=== PATIENT | male | born 1955 | race Caucasian/White ===

== ENCOUNTER 2019-10-30 10:13 | Outpatient (CLI) | payer OTHER, SELFPAY ==
[2019-10-30 10:32] LABS: Hematocrit 46.8 % (42.0-52.0); Hemoglobin 15.8 g/dL (14.0-18.0); Mean Corpuscular HGB Conc 33.8 g/dl (32-36); Mean Corpuscular Hemoglobin 35.3 pg (26-34); Mean Corpuscular Volume 104.5 fl (80-100); Mean Platelet Volume 10.6 fl (7.4-10.4); Platelet Count Result 74 k/mm3 (150-375); Red Blood Count 4.48 M/mm3 (4.6-6.20); Red Cell Distribution Width 14.1 % (11.5-14.5); White Blood Count 4.1 K/mm3 (4.5-10.0)
[2019-10-30 10:34] LABS: Blood Urea Nitrogen 17 mg/dL (8-26); Carbon Dioxide 31 mmol/L (22-30); Chloride 101 mmol/L (98-109); Estimated Glomerular Filt Rate > 60; Glucose 108 mg/dL (70-105); Potassium 4.2 mmol/L (3.5-4.9); Sodium 140 mmol/L (138-146)
[2019-10-30 12:48] LABS: Alanine Aminotransferase 28 U/L (4-50); Albumin Level 3.8 g/dL (3.5-5.1); Alkaline Phosphatase 117 U/L (38-126); Aspartate Amino Transferase 34 U/L (17-59); Bilirubin,Total 0.7 mg/dL (0.2-1.3); Blood Urea Nitrogen 17 mg/dL (9-20); Calcium 9.6 mg/dL (8.4-10.2); Carbon Dioxide 30 mmol/L (22-30); Chloride 104 mmol/L (98-107); Estimated Glomerular Filt Rate > 60; Glucose 108 mg/dL (75-110); Potassium 4.3 mmol/L (3.4-5.0); Sodium 139 mmol/L (137-145)
== END 2019-10-30 10:14 | disposition home or self-care (01) ==
LOC: ANHLAB 10:15
PROVIDERS: PCP Family Medicine; Visit Provider Internal Medicine Hematology & Oncology
DX: D69.59 Other secondary thrombocytopenia (principal)
CPT/HCPCS: 36415; 80048; 80053; 85027

== ENCOUNTER 2020-10-30 16:14 | Outpatient (CLI) | payer OTHER, SELFPAY | END 2020-10-30 16:15 | disposition home or self-care (01) | LOC: ANHCOVIDVC 16:14 | PROVIDERS: PCP Family Medicine | DX: Z23 Encounter for immunization (principal) | CPT/HCPCS: 0001A; 91300 ==

== ENCOUNTER 2020-11-20 16:11 | Outpatient (CLI) | payer OTHER, SELFPAY | END 2020-11-20 16:12 | disposition home or self-care (01) | LOC: ANHCOVIDVC 16:11 | PROVIDERS: PCP Family Medicine | DX: Z23 Encounter for immunization (principal) | CPT/HCPCS: 0002A; 91300 ==

== ENCOUNTER 2021-03-25 09:20 | Observation (INO) | payer OTHER, SELFPAY ==
[2021-03-25] VITALS (7 sets, daily range): BP systolic 99–142; BP diastolic 60–74; PULSE 85–92; RESP 18–20; TEMP 36.6–37.3; O2SAT 93–98; BMI 25.1
--- NOTE | ~2021-03-25 | CT_ITS ---
EXAMINATION: CTA chest PE protocol DATE: 03/25/2021 10:54 INDICATION: Chest pain TECHNIQUE: Computed tomography (CT) pulmonary angiogram of the chest was performed with 100 mL Omnipa que-350 intravenous contrast. Additional 3D reconstructions utilizing coronal maximum intensity proje ction (MIP) were performed. Automated exposure control and iterative reconstruction technique were em ployed. The dose-length product was 562.85 mGy-cm. COMPARISON: None FINDINGS: Good contrast opacification of the pulmonary arteries. There is mild streak artifact from dense contr ast in the superior vena cava and right atrium. Mild scattered respiratory motion artifact which does not significantly limit evaluation. No pulmonary embolism. Moderate emphysema. Mild bronchiectatic c hanges with some associated mucous plugging throughout both lungs. There are regions of tree-in-bud o pacities and small groundglass opacities consistent with endobronchial spread of disease scattered th roughout both lungs with involvement of all of the pulmonary lobes. Focal region of moderate pleural parenchymal scarring at the posterior right apex. Calcified nodule at the lingula along with calcifie d left hilar lymph nodes consistent with old granulomatous disease. No pleural effusion. Heart size i s normal. No pericardial effusion. Atherosclerotic coronary artery calcification. Thoracic aorta is n ormal in caliber with no dissection. No pathologically enlarged thoracic lymphadenopathy. Nodular cir rhotic liver. Spleen is incompletely visualized but suggests mild splenomegaly in the setting of port al venous hypertension. Moderate thoracic spondylosis and severe lower cervical spondylosis. IMPRESSION: 1. No pulmonary embolism. 2. Moderate emphysema with moderate pleural parenchymal scarring at the posterior right apex. 3. Bronchiectasis with scattered tree-in-bud opacities and small groundglass opacities likely infecti ous in etiology, either acute or chronic. 4. Cirrhosis with possible splenomegaly would suggest portal venous hypertension. Reviewed, dictated and finalized at location A. IMPRESSION: 1. No pulmonary embolism. 2. Moderate emphysema with moderate pleural parenchymal scarring at the posteri or right apex. 3. Bronchiectasis with scattered tree-in-bud opacities and small groundglass op acities likely infectious in etiology, either acute or chronic. 4. Cirrhosis with possible splenomegaly would suggest portal venous hypertensio n.
--- NOTE | ~2021-03-25 | XR_ITS ---
EXAMINATION: XR chest 2V EXAM DATE: 03/25/2021 09:48 INDICATION: Shortness of breath on exertion. Hypertension and diabetes. TECHNIQUE: Frontal and lateral projections of the chest obtained and reviewed. Comparison is made to prior examination from 03/27/2018. FINDINGS: The lungs are hyperinflated which can be seen with chronic obstructive pulmonary disease (a clinical diagnosis of functional impairment), but is not diagnostic of it. The lungs are clear. T here are no pleural effusions. The cardiomediastinal silhouette is within normal limits. There is n o pneumothorax suspected. The bones and soft tissues are unremarkable. IMPRESSION: 1. No acute cardiopulmonary findings. 2. Hyperinflation. Reviewed, dictated and finalized at location B.
--- NOTE | 2021-03-25 09:33 | ECG_ITS ---
Measurements Intervals [place] Rate: 88 P: 81 UT: 221 QRS: 57 QRSD: 81 T: 69 QT: 342 QTc: 414 Interpretive Statements SINUS RHYTHM WITH FIRST DEGREE AV BLOCK LOW QRS VOLTAGE IN LIMB LEADS CANNOT RULE OUT SEPTAL INFARCT, AGE INDETERMINATE BASELINE ARTIFACT- I, II, AVR, AVL ABNORMAL ECG Electronically Signed On 03-25-2021 14:24:04 CDT by Wilner Redmond D.O.
[2021-03-25 09:54] LABS: Basophils Percent Auto 0.2 % (0.2-1.2); Eosinophils Absolute Auto 0.1 K/mm3 (0-0.3); Eosinophils Percent Auto 0.9 % (0-4.4); Hematocrit 50.6 % (42.0-52.0); Hemoglobin 17.5 g/dL (14.0-18.0); Immature Granulocyte Absolute 0.02 K/mm3 (0.00-0.031); Immature Granulocyte Percent A 0.3 % (0-0.5); Lymphocytes Absolute Auto 1.13 K/mm3 (0.9-3.2); Lymphocytes Percent Auto 19.4 % (18.3-44.2); Mean Corpuscular HGB Conc 34.6 g/dl (32-36); Mean Corpuscular Hemoglobin 35.8 pg (26-34); Mean Corpuscular Volume 103.5 fl (80-100); Monocytes Absolute Auto 0.7 K/mm3 (0.1-0.6); Monocytes Percent Auto 12.5 % (2.6-8.5); Neutrophils Absolute Auto 3.9 K/mm3 (1.3-6.7); Neutrophils Percent Auto 66.7 % (45.5-73.1); Platelet Count Result 72 k/mm3 (150-375); Red Blood Count 4.89 M/mm3 (4.6-6.20); Red Cell Distribution Width 12.9 % (11.5-14.5); White Blood Count 5.8 K/mm3 (4.5-10.0)
--- NOTE | 2021-03-25 10:09 | ED.SOB ---
HPI - SOB/Dyspnea General Chief Complaint: Shortness of Breath/Dyspnea Stated Complaint: SOB Time Seen by Provider: 03/25/21 09:32 Source: patient and RN notes reviewed Mode of arrival: ambulatory Limitations: no limitations History of Present Illness HPI Narrative: This is a 65 year old male smoker with history COPD who presents for evaluation of shortness of breath. Yesterday he developed shortness of breath. He noticed walking into work he was gasping for air after walking approximately 20 steps. His shortness of breath has continued today and he reports shortness of breath with rest as well. He reports cough productive with clear phlegm for 2 weeks. He denies fever or chills. He reports mild intermittent chest congestion. He denies leg swelling or calf pain. He also denies sore throat. He denies contact with [facility] Related Data Home Medications Medication Instructions Recorded Confirmed allopurinol 300 mg PO DAILY 03/25/21 03/25/21 coffee xt-phosphatidyl serine cap PO DAILY 03/25/21 [Neuriva Original] duloxetine 60 mg PO DAILY 03/25/21 03/25/21 multivitamin [Daily Multivitamin] 1 tablet PO DAILY 03/25/21 03/25/21 Allergies Allergy/AdvReac Type Severity Reaction Status Date / Time No Known Allergies Allergy Verified 03/25/21 09:43 Review of Systems Review of Systems: All systems reviewed & are unremarkable except as noted in HPI and below PMFSH Past Medical History Medical History (Updated 03/25/21 @ 18:55 by Lea Alvares MD) Chronic obstructive pulmonary disease, unspecified Depression with anxiety Peripheral vascular disease, unspecified Type 2 diabetes mellitus without complication, without long-term current use of insulin Family History Family History (Updated 03/25/21 @ 15:40 by Ludmila Leon, RNLP) Mother Carcinoma of colon, Onset Age: 77 Father Diabetes mellitus Sibling Diabetes mellitus Social History Social History (Updated 03/25/21 @ 10:15 by Lea Alvares MD) Smoking packs per day: 3 Smoking cigarettes per day: 60.0 Years smoked: 50 Smoking pack-years: 150.00 Smoking status: Current every day smoker Tobacco type: cigarettes Second hand tobacco smoke exposure: Yes Smoking end date: 08/29/09 Additional smoking assessment comments: patient stated he smoked on and off for most of his life. Alcohol intake: current Drinks per week: 48 Substance use type: does not use Last use: patient states he drinks 2 cases (24 beers each) per week. Gender identity (if verbalized by the patient): Male Sexual Orientation (if Verbalized by the Patient): Straight or Heterosexual Spiritual care concerns: No Exam Const: General: no acute distress and alert Orientation/consciousness: patient oriented x3 Eyes: EOM: EOMs intact bilaterally Chest: Chest palpation & inspection: normal inspection of the chest Resp: Effort & Inspection: normal respiratory effort, not labored, no retractions and not tachypneic Auscultation: wheezes and diminished lung sounds Other: able to speak in complete full sentences with out difficulty Skin: General skin exam: normal color Rashes: no rashes Neuro: General: patient oriented x3, moves all extremities and CN's II-XI intact bilaterally Course Reevaluation(s) Reevaluation #1: Nursing staff reports patient became hypoxic to 88% on room air with ambulation and he was gasping for air. He was taking back to his room. He will be admitted for COPD exacerbation. Date: 03/25/21 Time: 12:00 Consultations Consultation #1: I Discussed case with DR. john. HE accepts patient to service on antibiotics and with covid swab. Date: 03/25/21 Time: 12:30 Vital Signs Vital signs: Vital Signs Temperature 97.8 F 03/25/21 09:33 Pulse Rate 87 03/25/21 09:33 Respiratory Rate 18 03/25/21 09:33 Blood Pressure 132/74 03/25/21 09:33 Pulse Oximetry 94 03/25/21 09:33 Temperature 99.1 F
[2021-03-25 10:12] LABS: Anion Gap 9 mmol/L (8-16); Blood Urea Nitrogen 9 mg/dL (9-20); Calcium 9.5 mg/dL (8.4-10.2); Carbon Dioxide 29 mmol/L (22-30); Chloride 94 mmol/L (98-107); Estimated CRCL calculation 101 ml/min; Estimated Glomerular Filt Rate > 60; Glucose 112 mg/dL (65-110); Potassium 4.2 mmol/L (3.4-5.0); Sodium 132 mmol/L (137-145)
[2021-03-25] MEDS: ALBUTEROL SULFATE NEB 2.5 MG/0.5 ML INH 5 MG INHALATION (10:15)
[2021-03-25] MEDS: IPRATROPIUM BR 0.02% INH SOLN 0.5 MG/2.5 ML VIAL INHALATION (10:15)
[2021-03-25] MEDS: predniSONE 20 MG TABLET 60 MG PO (10:18)
[2021-03-25 10:23] LABS: INR 0.9; Prothrombin Time 12.5 Seconds (11.1-14.7)
[2021-03-25 10:24] LABS: Partial Thromboplastin Time 38.1 SECONDS (22.3-36.8)
[2021-03-25 10:25] LABS: Alveolar/Arterial O2 Gradient 46.9 mmHg; Base Excess ABG 1.6 mEq/l (+/-2.0); Carboxyhemoglobin 3.5 % THb (0-2.0); Fractional Inspired Oxygen 21 %; HCO3 ABG 26.2 mEq/l (22.0-26.0); Methemoglobin ABG 0.4 %THb (0-1.5); Oxygen Content ABG 22.3 %vol (16.0-22.0); Oxygen Saturation ABG 88.6 % (95.0-100.0); Oxyhemoglobin 86.1 % THb (90.0-100.0); PO2 ABG 53.7 mmHg (80.0-100.0); PO2 FiO2 Ratio Arterial Blood 2.56 %; Total Hemoglobin 18.5 g/dL (12.0-18.0); pH ABG 7.423 (7.350-7.450)
[2021-03-25 10:26] LABS: D Dimer 1.04 ug/mL (<0.48)
[2021-03-25 10:26] LABS: Modified Allen's Test Pass; Site Drawn LEFT RADIAL
[2021-03-25 10:27] LABS: Device ROOM AIR
[2021-03-25 10:41] LABS: Troponin I < 0.012 ng/mL (0.000-0.034)
--- NOTE | 2021-03-25 15:23 | ADMGEN ---
This patient, Francis Montes, was admitted to 3 [facility] Surg Room 328-01. Patient oriented to hospital policies and general routines including ID bracelet, bed and alarms, visiting hours, pain management, procedures, bathroom and other care routines, personal items, smoking policy, room service/diet, and visiting hours. Information on how to activate the Rapid Response Team has been discussed. Patient/Family are encouraged to report perceived risks to care and to ask questions if they do not understand what they are told or what they should do.
[2021-03-25] MEDS: ALBUTEROL SULFATE (*SP) AEROSOL 1 PUFF 4 PUFF INHALATION (16:13)
[2021-03-25] MEDS: ALBUTEROL SULFATE (*SP) INHALER 1 PUFF (20:35)
[2021-03-25 20:58] LABS: Glucose Point of Care 142 mg/dl (65-105)
[2021-03-26] VITALS (14 sets, daily range): BP systolic 132–159; BP diastolic 57–77; PULSE 70–85; RESP 16–24; TEMP 36.6–36.7; O2SAT 91–95; BMI 25.1
--- NOTE | 2021-03-26 03:09 | PM.IMHP ---
H&P: HPI History of Present Illness Date/Time: 03/26/21 03:09 Chief Complaint: SHORTNESS OF BREATH Narrative: THIS IS A 65-YEAR-OLD MALE WITH PAST MEDICAL HISTORY SIGNIFICANT FOR TOBACCO DEPENDENCE, SMOKES 3 PACKS OF CIGARETTES DAILY, COPD / EMPHYSEMA, DYSLIPIDEMIA HOME TYPE 2 DIABETES MELLITUS CONTROLLED WITH ORAL AGENTS AND DIET COMA PERIPHERAL NEUROPATHY, HYPERTENSION. PATIENT PRESENTED TO THE EMERGENCY ROOM DUE TO PROGRESSIVELY WORSENING SHORTNESS OF BREATH STATES THAT THIS HAS BEEN ONGOING NOW FOR THE LAST 2 MONTHS OR SO BUT HAS BECOME INCREASINGLY WORSE AND HE HAS HAD SOME NIGHT SWEATS WELL COUGH WITH PRODUCTION OF YELLOWISH TO BROWN SPUTUM. IS STATES THAT NOW SHORTNESS OF BREATH IS EVEN WITH MINIMAL EXERTION. HE DENIES ANY NAUSEA ANY VOMITING ANY DIARRHEA AND ABDOMINAL PAIN HIS HAD ALSO POOR APPETITE DUE TO SHORTNESS OF BREATH. PRELIMINARY WORKUP WAS SIGNIFICANT FOR CTA WITH NO ACUTE PULMONARY EMBOLISM HOWEVER SIGNIFICANT FOR BRONCHIECTASIS AND TREE-IN-BUD APPEARANCE. Review of Systems Review of Systems: NIGHT SWEATS WORSENING SHORTNESS OF BREATH POOR APPETITE Constitutional: Constitutional: Reports chills, Denies fever(s), Reports poor appetite and Denies weakness Eyes: Eyes: Reports as per HPI ENT: Denies dysphagia, Denies nasal obstruction and Denies odynophagia Cardiovascular: Cardiovascular: Denies rapid heart rate, Denies irregular heart rhythm, Denies claudication, Denies lightheadedness, Denies radiating jaw, neck or arm pain, Denies palpitations, Denies dyspnea on exertion and Denies orthopnea Respiratory: Respiratory: Reports change in phlegm color, Reports cough, Reports excessive phlegm production and Reports dyspnea Gastrointestinal: Gastrointestinal: Denies abdominal pain, Denies diarrhea, Denies nausea and Denies vomiting Genitourinary: Genitourinary: Reports no additional male genitourinary complaints Musculoskeletal: Musculoskeletal: Reports no additional musculoskeletal complaints Integumentary/Breasts: Skin/Breast: Reports system reviewed and no additional complaints, except as docu Neurologic: Reports system reviewed and no additional complaints, except as documented Psychiatric: Psychiatric: Reports no additional psychiatric complaints Endocrine: Endocrine: Reports no additional endocrine complaints Hematologic/Lymphatic: Hematologic/Lymphatic: Reports no additional hematologic/lymphatic complaints Allergic/Immunologic: Allergic/Immunologic: Reports no additional allergic/immunologic complaints [facility] Past Medical History Medical History (Updated 03/25/21 @ 18:55 by Lea Alvares MD) Chronic obstructive pulmonary disease, unspecified Depression with anxiety Peripheral vascular disease, unspecified Type 2 diabetes mellitus without complication, without long-term current use of insulin Family History Family History (Updated 03/25/21 @ 15:40 by JULIETA Acosta) Mother Carcinoma of colon, Onset Age: 77 Father Diabetes mellitus Sibling Diabetes mellitus Social History Social History (Updated 03/25/21 @ 10:15 by Lea Alvares MD) Smoking packs per day: 3 Smoking cigarettes per day: 60.0 Years smoked: 50 Smoking pack-years: 150.00 Smoking status: Current every day smoker Tobacco type: cigarettes Second hand tobacco smoke exposure: Yes Smoking end date: 08/29/09 Additional smoking assessment comments: patient stated he smoked on and off for most of his life. Alcohol intake: current Drinks per week: 48 Substance use type: does not use Last use: patient states he drinks 2 cases (24 beers each) per week. Gender identity (if verbalized by the patient): Male Sexual Orientation (if Verbalized by the Patient): Straight or Heterosexual Spiritual care concerns: No Meds Home Medications and Allergies Home Medications Medication Instructions Recorded Confirmed Type albuterol sulfate 90 mcg/actuation 2 inhalation INHALATION .C
[2021-03-26 06:56] LABS: Basophils Percent Auto 0.4 % (0.2-1.2); Eosinophils Percent Auto 0.4 % (0-4.4); Hematocrit 48.9 % (42.0-52.0); Hemoglobin 17.2 g/dL (14.0-18.0); Immature Granulocyte Absolute 0.02 K/mm3 (0.00-0.031); Immature Granulocyte Percent A 0.4 % (0-0.5); Immature Platelet Fraction Pct 5.7 % (0.9-11.2); Lymphocytes Absolute Auto 1.07 K/mm3 (0.9-3.2); Lymphocytes Percent Auto 19.6 % (18.3-44.2); Mean Corpuscular HGB Conc 35.2 g/dl (32-36); Mean Corpuscular Hemoglobin 36.3 pg (26-34); Mean Corpuscular Volume 103.2 fl (80-100); Monocytes Absolute Auto 0.6 K/mm3 (0.1-0.6); Monocytes Percent Auto 10.3 % (2.6-8.5); Neutrophils Absolute Auto 3.8 K/mm3 (1.3-6.7); Neutrophils Percent Auto 68.9 % (45.5-73.1); Platelet Count Result 74 k/mm3 (150-375); Red Blood Count 4.74 M/mm3 (4.6-6.20); Red Cell Distribution Width 12.9 % (11.5-14.5); White Blood Count 5.5 K/mm3 (4.5-10.0)
[2021-03-26 07:09] LABS: Alanine Aminotransferase 38 U/L (4-50); Albumin Level 3.8 g/dL (3.5-5.1); Alkaline Phosphatase 142 U/L (38-126); Anion Gap 9 mmol/L (8-16); Aspartate Amino Transferase 54 U/L (17-59); Bilirubin,Total 0.9 mg/dL (0.2-1.3); Blood Urea Nitrogen 16 mg/dL (9-20); Calcium 9.5 mg/dL (8.4-10.2); Carbon Dioxide 27 mmol/L (22-30); Chloride 96 mmol/L (98-107); Estimated CRCL calculation 104 ml/min; Estimated Glomerular Filt Rate > 60; Glucose 102 mg/dL (65-110); Potassium 4.2 mmol/L (3.4-5.0); Sodium 132 mmol/L (137-145)
[2021-03-26 08:20] LABS: Glucose Point of Care 109 mg/dl (65-105)
[2021-03-26] MEDS: allopurinoL 300 MG TABLET PO (08:44)
[2021-03-26] MEDS: DULoxetine HCL 60 MG CAPSULE.DR PO (08:44)
[2021-03-26] MEDS: predniSONE 20 MG TABLET 60 MG PO (08:44)
[2021-03-26] MEDS: busPIRone HCL 2.5 MG TABLET 7.5 MG PO ×2 (08:44→21:06)
[2021-03-26] MEDS: ATORVASTATIN 10 MG TABLET PO (08:44)
[2021-03-26] MEDS: IPRATROPIUM BR 0.02% INH SOLN 0.5 MG/2.5 ML VIAL INHALATION ×3 (08:47→20:31)
[2021-03-26] MEDS: ALBUTEROL SULFATE NEB 2.5 MG/0.5 ML INH INHALATION ×3 (08:47→20:31)
[2021-03-26] MEDS: FLUTICASONE/UMECLIDIN/VILANTER 100-62.5-25 MCG ELLIPTA 1 PUFF INHALATION (08:47)
[2021-03-26 08:52] LABS: Folic Acid 17.6 ng/mL (2.76->20)
[2021-03-26 12:21] LABS: Glucose Point of Care 143 mg/dl (65-105)
[2021-03-26] MEDS: GABAPENTIN 300 MG CAPSULE 600 MG PO ×2 (12:28→16:41)
--- NOTE | 2021-03-26 13:22 | PCNSR ---
On 03/26/21, the student, Bessy White, provided care and completed [facility] on this patient. I have reviewed the student's documentation and agree with the findings.
--- NOTE | 2021-03-26 16:33 | PM.IMPN ---
Progress Note: A&P Assessment and Plan (1) Acute exacerbation of chronic obstructive airways disease: Code(s): J44.1 - Chronic obstructive pulmonary disease with (acute) exacerbation Status: Acute Assessment and Plan: Patient with COPD exacerbation and pneumonia. He is no longer on any oxygen at this time. he does still have some wheezing. Will continue IV Antibotic at this time for community-acquired pneumonia. Will increase steroids to Solu-Medrol 40 mg q.12. For COPD exacerbation. Continue DuoNeb treatments q.6 hours. Will continue monitoring his oxygenation and consider a home oxygen evaluation prior to discharge tomorrow. (2) Community acquired pneumonia: Code(s): J18.9 - Pneumonia, unspecified organism Status: Acute Assessment and Plan: Continue azithromycin and ceftriaxone. Will try to collect sputum culture. Ordered urine antigens which were received and pending. (3) Peripheral vascular disease, unspecified: Code(s): I73.9 - Peripheral vascular disease, unspecified Status: Chronic Assessment and Plan: Stable. (4) Type 2 diabetes mellitus without complication, without long-term current use of insulin: Code(s): E11.9 - Type 2 diabetes mellitus without complications Status: Chronic Assessment and Plan: Glucose this morning was 102. Will continue to hold metformin while hospitalized. Continue with Accu-Cheks a.c. HS. Sliding scale insulin as needed. And hypoglycemic protocol in place. (5) Depression with anxiety: Code(s): F41.8 - Other specified anxiety disorders Status: Chronic Assessment and Plan: CONTINUE BUSPIRONE AND DULOXETINE (6) Nicotine dependence: Qualifiers: Nicotine product type: cigarettes Substance use status: uncomplicated Qualified Code(s): F17.210 - Nicotine dependence, cigarettes, uncomplicated Code(s): F17.200 - Nicotine dependence, unspecified, uncomplicated Status: Acute Assessment and Plan: Patient does have wishes to come back on his smoking once discharged. When asked about quitting completely he says he would rather focus on quitting alcohol. Smoking cessation given for 3 minutes. (7) Stasis dermatitis of both legs: Code(s): I87.2 - Venous insufficiency (chronic) (peripheral) Status: Chronic Assessment and Plan: Stable. No acute changes. (8) Alcoholic cirrhosis: Code(s): K70.30 - Alcoholic cirrhosis of liver without ascites Status: Chronic Assessment and Plan: CT scan shows cirrhosis of the liver. Patient denies ever being told he has alcoholic cirrhosis. But he is a heavy alcohol drinker. He does have plans to quit drinking after discharge. His CIWA score has been less than 8. He does have some slight tremors, anxiety, and sweats. --Started Folic acid, Thiamine and I will order Librium 5 mg p.r.n. q.6 hours for withdrawal symptoms. Any monitoring CIWA. Will talk to care coordination about helping him with detox. (9) Splenomegaly: Code(s): R16.1 - Splenomegaly, not elsewhere classified Status: Acute Assessment and Plan: Most likely secondary to liver cirrhosis and portal vein hypertension. Time Spent With Patient Time with patient: 25 - 35 minutes Subjective Date/time seen: 03/26/21 16:33 Interval history: Date of Service 03/26/21: Patient reports still having intermittent cough with improvement of sputum production from yellow to white/
[2021-03-26] MEDS: chlordiazePOXIDE (*CRX) 5 MG CAPSULE PO (16:40)
[2021-03-26 17:26] LABS: Glucose Point of Care 180 mg/dl (65-105)
[2021-03-26] MEDS: FOLIC ACID 1 MG/0.2 ML INJ IV PUSH (17:42)
[2021-03-26] MEDS: methylPREDNISolone SOD SUCC 40 MG VIAL IV PUSH (17:42)
[2021-03-26] MEDS: THIAMINE HCL 50 MG TABLET PO (17:42)
[2021-03-26 18:09] LABS: SARS-CoV-2 RNA PCR Negative
[2021-03-26 21:12] LABS: Glucose Point of Care 126 mg/dl (65-105)
[2021-03-27] VITALS: PULSE 85
[2021-03-27] MEDS: chlordiazePOXIDE (*CRX) 5 MG CAPSULE PO (00:19)
[2021-03-27] MEDS: methylPREDNISolone SOD SUCC 40 MG VIAL IV PUSH (05:14)
[2021-03-27 05:24] VITALS: BP 130/58; PULSE 79; RESP 20; TEMP 36.5; O2SAT 92
[2021-03-27 06:52] LABS: Alanine Aminotransferase 57 U/L (4-50); Albumin Level 3.5 g/dL (3.5-5.1); Alkaline Phosphatase 137 U/L (38-126); Anion Gap 7 mmol/L (8-16); Aspartate Amino Transferase 76 U/L (17-59); Bilirubin,Total 0.8 mg/dL (0.2-1.3); Blood Urea Nitrogen 20 mg/dL (9-20); Calcium 9.1 mg/dL (8.4-10.2); Carbon Dioxide 28 mmol/L (22-30); Chloride 96 mmol/L (98-107); Estimated CRCL calculation 92 ml/min; Estimated Glomerular Filt Rate > 60; Glucose 115 mg/dL (65-110); Sodium 131 mmol/L (137-145)
[2021-03-27] MEDS: ATORVASTATIN 10 MG TABLET PO (08:27)
[2021-03-27] MEDS: busPIRone HCL 2.5 MG TABLET 7.5 MG PO (08:27)
[2021-03-27] MEDS: allopurinoL 300 MG TABLET PO (08:27)
[2021-03-27] MEDS: THIAMINE HCL 50 MG TABLET PO (08:28)
[2021-03-27] MEDS: GABAPENTIN 300 MG CAPSULE 600 MG PO ×2 (08:28→12:15)
[2021-03-27] MEDS: DULoxetine HCL 60 MG CAPSULE.DR PO (08:28)
[2021-03-27] MEDS: FOLIC ACID 1 MG/0.2 ML INJ IV PUSH (08:30)
[2021-03-27 08:48] LABS: Glucose Point of Care 148 mg/dl (65-105)
[2021-03-27 08:50] VITALS: PULSE 76; RESP 20
--- NOTE | 2021-03-27 12:47 | PM.DS ---
DS: Admitting Diagnosis Admitting Diagnosis SOB DS: Discharge Diagnosis Discharge Diagnosis (1) Acute exacerbation of chronic obstructive airways disease: Code(s): J44.1 - Chronic obstructive pulmonary disease with (acute) exacerbation Status: Acute Assessment and Plan: The patient is a 65 year old man with a past medical history of Tobacco dependence, smokes 3 packs of cigarettes per day, COPD/emphysema, hyperlipidemia, diabetes type 2 on oral medications, peripheral neuropathy, hypertension, presented to the emergency room with worsening shortness of breath over the last 2 months with associated productive cough with yellow-brown sputum, night sweats and worsening dyspnea with exertion. Initial labs showed stable blood pressure 134 a 74, heart rate 87, respiratory rate 18, oxygenation 94% on room air, afebrile. Initial labs showed elevated MCV, otherwise normal H&H, elevated D-dimer 1.04, ABG suggesting some hypoxia with an OC saturation 88, slight hyponatremia at 132, troponin normal, COVID test was normal. Chest x-ray showed no acute cardiopulmonary findings, just hyperinflation. CTA of the chest showed no PE, moderate emphysema with moderate pleural parenchymal scarring at the posterior right apex. Bronchiectasis with scattered tree-in-bud opacities and small groundglass opacities likely infectious in etiology, either acute or chronic. The patient was admitted for COPD exacerbation and pneumonia started on IV Abx, IV Solu-medrol, Duoneb treatments Q6hrs. The patient was feeling better after a few days of treatment, discharged on Prednisone taper, follow up with Pulmonology, and PO antibiotics. While here the patients CT showed Cirrhosis with possible splenomegaly would suggest portal venous hypertension. Told him to refrain from alcohol use. The patient does want to quit drinking alcohol. Care coordination tried to give him some resources and he told them that he knows what he needs to do. I suggested AA and chest not having different resources. (2) Community acquired pneumonia: Code(s): J18.9 - Pneumonia, unspecified organism Status: Acute Assessment and Plan: Continue azithromycin and ceftriaxone. D/c on oral Abx. Urine Antigens negative. Sputum culture not collected. Blood cultures negative to date. (3) Peripheral vascular disease, unspecified: Code(s): I73.9 - Peripheral vascular disease, unspecified Status: Chronic Assessment and Plan: Stable. (4) Type 2 diabetes mellitus without complication, without long-term current use of insulin: Code(s): E11.9 - Type 2 diabetes mellitus without complications Status: Chronic Assessment and Plan: Glucose stable. Continue home medications. (5) Depression with anxiety: Code(s): F41.8 - Other specified anxiety disorders Status: Chronic Assessment and Plan: CONTINUE BUSPIRONE AND DULOXETINE (6) Nicotine dependence: Qualifiers: Nicotine product type: cigarettes Substance use status: uncomplicated Qualified Code(s): F17.210 - Nicotine dependence, cigarettes, uncomplicated Code(s): F17.200 - Nicotine dependence, unspecified, uncomplicated Status: Acute Assessment and Plan: Patient does have wishes to cut back on his smoking once discharged. When asked about quitting completely he says he would rather focus on quitting alcohol. Smoking cessation given for 3 minutes. (7) Stasis dermatitis of both legs: Code(s): I87.2 - Venous insufficiency (chronic) (peripheral) Status: Chronic Assessment and Plan: Stable. No acute changes.
[2021-03-27 14:00] VITALS: BP 133/62; PULSE 73; RESP 18; TEMP 35.8; O2SAT 100
[2021-03-27 14:19] VITALS: PULSE 77; RESP 18
[2021-03-27] MEDS: ALBUTEROL SULFATE NEB 2.5 MG/0.5 ML INH INHALATION (14:19)
[2021-03-27] MEDS: IPRATROPIUM BR 0.02% INH SOLN 0.5 MG/2.5 ML VIAL INHALATION (14:19)
[2021-03-27 14:35] VITALS: PULSE 75; RESP 16
[2021-03-29 07:13] LABS: Pneumococcal Antigen Urine Not Detected (Not Detected)
[2021-03-31 02:51] LABS: Legionella pneumophila Ag Ur Not Detected (Not Detected)
== END 2021-03-27 15:45 | disposition home or self-care (01) ==
LOC: ANHED 10:24 → ANH3MEDSUR 14:28
PROVIDERS: Admitting Provider Internal Medicine; Emergency Provider General Practice; PCP Family Medicine; Visit Provider Physician Assistant
DX: J44.1 Chronic obstructive pulmonary disease with (acute) exacerbation (principal); J44.0 Chronic obstructive pulmonary disease with (acute) lower respiratory infection; J18.9 Pneumonia, unspecified organism; E11.42 Type 2 diabetes mellitus with diabetic polyneuropathy; E11.51 Type 2 diabetes mellitus with diabetic peripheral angiopathy without gangrene; I10 Essential (primary) hypertension; I73.9 Peripheral vascular disease, unspecified; I87.2 Venous insufficiency (chronic) (peripheral); E78.5 Hyperlipidemia, unspecified; K70.30 Alcoholic cirrhosis of liver without ascites; R16.1 Splenomegaly, not elsewhere classified; F32.9 Major depressive disorder, single episode, unspecified; F17.210 Nicotine dependence, cigarettes, uncomplicated; F41.9 Anxiety disorder, unspecified
CPT/HCPCS: 36415; 36600; 71046; 71275; 80048; 80053; 82375; 82607; 82746; 82805; 82948; 83050; 84484; 85025; 85055; 85380; 85610; 85730; 87040; 87449; 87899; 93005; 94640; 96365; 96367; 96375; 99285; A9270; C9803; G0378; J0456; J0696; J2920; J7512; Q9967; U0003; U0005

== ENCOUNTER 2022-05-14 18:36 | Inpatient (IN) | payer OTHER, SELFPAY ==
[2022-05-14] VITALS (37 sets, daily range): BP systolic 96–133; BP diastolic 67–94; PULSE 83–112; RESP 13–22; TEMP 36.1–36.7; O2SAT 84–100; BMI 23.3
--- NOTE | ~2022-05-14 | XR_ITS ---
EXAMINATION: XR chest 2V DATE: 05/14/2022 19:07 INDICATION: Shortness of breath. Cough. TECHNIQUE: Frontal and lateral views of the chest were obtained. COMPARISON: Chest 2 views 03/25/21, chest CT 03/25/2021 FINDINGS: The lungs are hyperexpanded, consistent with emphysema. There is stable scarring at the aissatou g apices. There is mild scarring in posterior segment right upper lobe. No pleural effusion or pneumo thorax. The heart size is normal. IMPRESSION: 1. Emphysema. 2. Stable scarring in the upper lobes. Reviewed, dictated and finalized at location A.
--- NOTE | 2022-05-14 18:54 | ECG_ITS ---
Measurements Intervals [place] Rate: 86 P: [place]: 0 QRS: 54 QRSD: 78 T: 76 QT: 350 QTc: 420 Interpretive Statements SINUS RHYTHM WITH FIRST DEGREE AV BLOCK LOW QRS VOLTAGE IN LIMB LEADS CANNOT RULE OUT SEPTAL INFARCT, AGE INDETERMINATE ABNORMAL ECG COMPARED TO ECG 03/25/2021 09:32:45 NO SIGNIFICANT CHANGES Electronically Signed On 05-14-2022 21:33:13 CDT by Wilner Redmond D.O.
--- NOTE | 2022-05-14 19:15 | ED.SOB ---
HPI - SOB/Dyspnea General Chief Complaint: Shortness of Breath/Dyspnea Stated Complaint: decreased oxygen levels - shortness of breath Time Seen by Provider: 05/14/22 19:15 History of Present Illness HPI Narrative: Patient is a 66-year-old male with a history of COPD, diabetes, PVD presenting with shortness of breath. Patient reports that he has been increasingly short of breath over the last several days. States he has also had a productive cough as well as chest tightness. His called his PCP today who recommended he go to urgent care for evaluation. At urgent care, he was noted to be saturating in the 80s on room air so he was advised to come to the ER. On arrival here, he was saturating 84% on room air. Improved to the upper 90s on 2 L nasal cannula. He otherwise denies headache, fever, abdominal pain, nausea or vomiting, diarrhea, dysuria, leg swelling. Patient is vaccinated for COVID-19. Related Data Home Medications Medication Instructions Recorded Confirmed multivitamin 1 tablet PO DAILY 03/25/21 12/15/21 B6 1.7 mg-folic 400 mcg-B12 2.4 cap PO 03/31/21 12/15/21 [id number] oral capsule (Neuriva Plus Brain Performance) Allergies Allergy/AdvReac Type Severity Reaction Status Date / Time No Known Allergies Allergy Verified 12/15/21 16:19 Review of Systems Review of Systems: All systems reviewed & are unremarkable except as noted in HPI and below PMFSH Past Medical History Medical History (Updated 05/14/22 @ 21:23 by Alicia Mahmood DO) Alcohol dependence Alcoholic cirrhosis Chronic obstructive pulmonary disease, unspecified Depression with anxiety Gout Hepatitis A Nicotine dependence Onychomycosis Peripheral neuropathy Peripheral vascular disease Portal venous hypertension Pure hypercholesterolemia Stasis dermatitis of both legs Thrombocytopenia Type 2 diabetes mellitus without complication, without long-term current use of insulin Diagnosed in 2019 last hemoglobin A1c 5.07 October 2021 Xerosis cutis Surgical History Surgical History (Updated 05/14/22 @ 21:25 by Alicia Mahmood DO) History of colonoscopy with polypectomy (03/2018) History of cystoscopy S/P TURP (status post transurethral resection of prostate) Family History Family History Mother Carcinoma of colon, Onset Age: 77 Father Diabetes mellitus Sibling Diabetes mellitus Social History Social History Smoking packs per day: 3 Smoking cigarettes per day: 60.0 Years smoked: 50 Smoking pack-years: 150.00 Tobacco type: cigarettes Second hand tobacco smoke exposure: Yes Smoking end date: 08/29/09 Additional smoking assessment comments: patient stated he smoked on and off for most of his life. Alcohol intake: current Drinks per week: 48 Substance use type: does not use Last use: patient states he drinks 2 cases (24 beers each) per week. Gender identity (if verbalized by the patient): Male Sexual Orientation (if Verbalized by the Patient): Straight or Heterosexual Spiritual care concerns: No Exam Narrative: GENERAL: Well-appearing, well-nourished, and in no acute distress. HEAD: Normocephalic, atraumatic. EYES: PERRLA and EOMI. ENT: Nares clear, no rhinorrhea or epistaxis. Mucous membranes moist. NECK: Supple. CHEST: Decreased breath sounds bilaterally with expiratory wheezing in all jimenez HEART: Regular rate and rhythm. No murmur heard. Normal peripheral pulses. ABDOMEN: Soft, nontender, nondistended, normal active bowel sounds. EXTREMITIES: Normal range of motion. No edema. SKIN: Warm, dry, no rash. Chronic venous stasis changes in bilateral lower extremities NEURO: No focal deficits. Alert and oriented x3. PSYCH: Normal mood and affect. Course Vital Signs Vital signs: Vital Signs Temperature 98.1 F 05/14/22 18:40 Pulse Rate 89
[2022-05-14 19:30] LABS: Basophils Percent Auto 0.4 % (0.2-1.2); Eosinophils Absolute Auto 0.1 K/mm3 (0-0.3); Eosinophils Percent Auto 1.3 % (0-4.4); Hematocrit 42.8 % (42.0-52.0); Hemoglobin 15.4 g/dL (14.0-18.0); Immature Granulocyte Absolute 0.01 K/mm3 (0.00-0.031); Immature Granulocyte Percent A 0.2 % (0-0.5); Immature Platelet Fraction Pct 4.7 % (0.9-11.2); Lymphocytes Absolute Auto 1.38 K/mm3 (0.9-3.2); Lymphocytes Percent Auto 29.7 % (18.3-44.2); Mean Corpuscular Hemoglobin 37.7 pg (26-34); Mean Corpuscular Volume 104.6 fl (80-100); Mean Platelet Volume 8.9 fl (7.4-10.4); Monocytes Absolute Auto 0.5 K/mm3 (0.1-0.6); Monocytes Percent Auto 9.9 % (2.6-8.5); Neutrophils Absolute Auto 2.7 K/mm3 (1.3-6.7); Neutrophils Percent Auto 58.5 % (45.5-73.1); Platelet Count Result 82 k/mm3 (150-375); Red Blood Count 4.09 M/mm3 (4.6-6.20); Red Cell Distribution Width 12.5 % (11.5-14.5); White Blood Count 4.7 K/mm3 (4.5-10.0)
[2022-05-14] MEDS: IPRATROPIUM BR 0.02% INH SOLN 0.5 MG/2.5 ML VIAL INHALATION (19:39)
[2022-05-14] MEDS: ALBUTEROL SULFATE NEB 2.5 MG/3 ML INH 10 MG INHALATION (19:39)
[2022-05-14 19:40] LABS: Alanine Aminotransferase 33 U/L (6-50); Alkaline Phosphatase 131 U/L (38-126); Anion Gap 8 mmol/L (8-16); Aspartate Amino Transferase 49 U/L (17-59); Bilirubin,Total 0.8 mg/dL (0.2-1.3); Blood Urea Nitrogen 8 mg/dL (9-20); Calcium 9.2 mg/dL (8.4-10.2); Carbon Dioxide 29 mmol/L (22-30); Chloride 94 mmol/L (98-107); Estimated CRCL calculation 99 ml/min; Estimated Glomerular Filt Rate > 60; Glucose 83 mg/dL (65-110); Potassium 4.3 mmol/L (3.4-5.0); Sodium 131 mmol/L (137-145)
[2022-05-14 19:49] LABS: NT Pro B Type Natriuretic Pept 268 pg/mL (5-100)
[2022-05-14] MEDS: methylPREDNISolone SOD SUCC 125 MG VIAL IV PUSH (20:26)
--- NOTE | 2022-05-14 21:10 | PM.IMHP ---
H&P: HPI History of Present Illness Date/Time: 05/14/22 21:10 Chief Complaint: Cough, shortness breath, low oxygen saturation Narrative: 66-year-old male with a past medical history of gout, hyperlipidemia, central hypertension, type 2 diabetes mellitus, peripheral neuropathy, anxiety and depression, and COPD with continued tobacco use who presented to the ER from urgent care due to low oxygen saturations. Patient has been having 3 days shortness of breath. We around to urgent care the patient's oxygen saturations were 84% on room air. When he arrived to our facility he was placed on 2 L nasal cannula with oxygen saturations improved to 98%. In the ER patient received an hour long nebulizer and IV Solu-Medrol 125 mg. He reports improvement in his symptoms. He has been taking his home Trelegy inhaler. He did find an old albuterol inhaler that he had around the house and tried the albuterol yesterday with short periods of relief of his symptoms. He reports that he has marked dyspnea on exertion. He reports he has had increased sinus pressure and sinus headache for a couple of days. His has been giving him Benadryl for symptoms. Benadryl has not seemed to help his sinus pressure. Since starting the Benadryl he has also had increased shortness of breath. He denies any increased cough. He denies any fevers or chills. He denies any known ill contacts. He has not had any chest pain. His cough has been productive of white sputum. He denies any lower extremity swelling or orthopnea. He denies a history of CHF but is on Lasix. This could be in part due to his history of cirrhosis. Patient still drinks approximately a 12 pack of beer per day per his 's report. Patient has chronic tremors sounds like essential tremor. His reports that his tremor has been quite significant for quite some time. The patient denies any irritability or symptoms of alcohol withdrawal in the past. More toward Katharine HPI was obtained from the patient's 's report. The patient deferred most answers to his . Review of Systems Review of Systems: 12 systems were reviewed with pertinent positives and negatives per HPI. Except as documented in the HPI, all other systems were reviewed and are negative. [facility] Past Medical History Medical History (Updated 05/15/22 @ 00:54 by Alicia Mahmood DO) Alcohol dependence Alcoholic cirrhosis Chronic obstructive pulmonary disease, unspecified Depression with anxiety Gout Hepatitis A Nicotine dependence Onychomycosis Peripheral neuropathy Peripheral vascular disease Portal venous hypertension Pure hypercholesterolemia Stasis dermatitis of both legs Thrombocytopenia Type 2 diabetes mellitus without complication, without long-term current use of insulin Diagnosed in 2019 last hemoglobin A1c 5.07 October 2021 Xerosis cutis Surgical History Surgical History (Updated 05/14/22 @ 21:25 by Alicia Mahmood DO) History of colonoscopy with polypectomy (03/2018) History of cystoscopy S/P TURP (status post transurethral resection of prostate) Family History Family History Mother Carcinoma of colon, Onset Age: 77 Father Diabetes mellitus Sibling Diabetes mellitus Social History Social History (Updated 05/15/22 @ 00:44 by Alicia Mahmood DO) Social History: Code status: Full code Surrogate decision maker: Smoking packs per day: 3 Smoking cigarettes per day: 60.0 Years smoked: 50 Smoking pack-years: 150.00 Smoking status: Current every day smoker Tobacco type: cigarettes Second hand tobacco smoke exposure: Yes Smoking end date: 08/29/09 Additional smoking assessment comments: patient stated he smoked on and off for most of his life. Alcohol intake: current Drinks per week: 12 Alcohol use details: The patient drinks up to a 12 pack of beer per day. Substance use: never Substance use ty
[2022-05-14 21:22] LABS: Influenza A QL RT-PCR Negative (Negative); Influenza B QL RT-PCR Negative (Negative); SARS-CoV-2 RNA PCR Negative
--- NOTE | 2022-05-14 22:36 | ADMGEN ---
This patient, Francis Montes, was admitted to Medical Room 341-01. Patient/family oriented to hospital policies and general routines including ID bracelet, bed and alarms, visiting hours, pain management, procedures, bathroom and other care routines, personal items, smoking policy, room service/diet, and visiting hours. Information on how to activate the Rapid Response Team has been discussed. Patient/Family are encouraged to report perceived risks to care and to ask questions if they do not understand what they are told or what they should do.
[2022-05-14 23:01] LABS: Glucose Point of Care 206 mg/dl (65-105)
[2022-05-15] VITALS (19 sets, daily range): BP systolic 106–151; BP diastolic 47–74; PULSE 59–118; RESP 16–20; TEMP 36.2–36.8; O2SAT 92–100
[2022-05-15] MEDS: chlordiazePOXIDE (*CRX) 25 MG CAPSULE PO ×4 (00:06→17:17)
[2022-05-15] MEDS: THIAMINE HCL 200 MG/2 ML VIAL 100 MG IV PUSH (00:13)
[2022-05-15] MEDS: LORazepam INJ (*CRX) 2 MG/ML VIAL 1 MG IV PUSH ×2 (00:13→05:51)
[2022-05-15] MEDS: ALBUTEROL SULFATE NEB 2.5 MG/3 ML INH 5 MG INHALATION ×4 (02:11→20:03)
[2022-05-15] MEDS: IPRATROPIUM BR 0.02% INH SOLN 0.5 MG/2.5 ML VIAL INHALATION ×4 (02:11→20:05)
[2022-05-15] MEDS: methylPREDNISolone SOD SUCC 125 MG VIAL 60 MG IV PUSH ×3 (05:48→20:36)
[2022-05-15] MEDS: FLUTICASONE/UMECLIDIN/VILANTER 100-62.5-25 MCG ELLIPTA 1 PUFF INHALATION (08:05)
[2022-05-15 08:39] LABS: Glucose Point of Care 169 mg/dl (65-105)
[2022-05-15] MEDS: metFORMIN HCL 500 MG TABLET PO ×2 (09:05→17:17)
[2022-05-15] MEDS: ATORVASTATIN 10 MG TABLET PO (09:05)
[2022-05-15] MEDS: THIAMINE HCL 100 MG TABLET PO (09:05)
[2022-05-15] MEDS: MULTIVITAMINS THERAPEUTIC TAB (*BKC) 1 TABLET PO (09:05)
[2022-05-15] MEDS: guaiFENesin 12 HR 600 MG TABCR PO ×2 (09:05→20:35)
[2022-05-15] MEDS: DULoxetine HCL 60 MG CAPSULE.DR PO (09:05)
[2022-05-15] MEDS: allopurinoL 300 MG TABLET PO (09:05)
[2022-05-15] MEDS: GABAPENTIN 400 MG CAPSULE 1200 MG PO ×3 (09:05→17:17)
[2022-05-15] MEDS: LORATADINE 10 MG TABLET PO (09:05)
[2022-05-15] MEDS: FLUTICASONE PROPIONATE 0.05% NA SPR 16 GM BTL (*BKC) 2 SPRAY NASAL (09:06)
[2022-05-15] MEDS: busPIRone HCL 5 MG TABLET PO ×2 (09:06→17:17)
[2022-05-15] MEDS: busPIRone HCL 2.5 MG TABLET PO ×2 (09:06→17:17)
[2022-05-15] MEDS: NICOTINE (*PBKC) 21 MG PATCH 1 PATCH TRANSDERM (09:10)
[2022-05-15] MEDS: FUROSEMIDE INJ 40 MG/4 ML VIAL IV PUSH (09:12)
[2022-05-15 12:19] LABS: Glucose Point of Care 190 mg/dl (65-105)
--- NOTE | 2022-05-15 13:54 | PM.IMPN ---
Progress Note: A&P Assessment and Plan (1) COPD exacerbation: Code(s): J44.1 - Chronic obstructive pulmonary disease with (acute) exacerbation Status: Acute Assessment and Plan: Patient has acute COPD exacerbation. No evidence of pneumonia or underlying infection. Will continue IV Solu-Medrol 60 mg q.8 hours. Will continue scheduled nebulizer treatments with albuterol and Atrovent. 05/15/2022 interval history: patient with history of COPD presented with exacerbation being treated with Solu-Medrol and bronchodilator, patient's lung sounds congested will add Lasix, patient with history of alcohol abuse has visible tremors, will continue the CIWA protocol and monitor will have PT OT evaluate the patient further recommendation to follow (2) Acute respiratory failure with hypoxia: Code(s): J96.01 - Acute respiratory failure with hypoxia Status: Acute Assessment and Plan: Acute hypoxic respiratory failure due to acute COPD exacerbation. Will continue nebulizers and steroids and wean oxygen as tolerated. (3) Alcohol dependence: Qualifiers: Substance use status: unspecified alcohol-induced disorder Qualified Code(s): F10.29 - Alcohol dependence with unspecified alcohol-induced disorder Code(s): F10.20 - Alcohol dependence, uncomplicated Status: Acute Assessment and Plan: Patient has marked tremors in the ER. His states that these are at baseline. Ellipse patient also does appear somewhat irritable. Given the patient's heavy alcohol use history will start patient on thiamine supplementation as well as scheduled Librium 25 mg q.6 hours and p.r.n. Ativan as needed for CIWA scores greater than 8. Alcohol cessation education was provided to the patient. He is not interested in quitting drinking despite discussion of his cirrhosis. (4) Type 2 diabetes mellitus without complication, without long-term current use of insulin: Code(s): E11.9 - Type 2 diabetes mellitus without complications Status: Chronic Assessment and Plan: Will continue patient's home metformin and will add sliding scale insulin as patient will be on steroids for his COPD exacerbation. Will check Accu-Cheks a.c. HS and hypoglycemia protocol have been ordered. (5) Nicotine dependence: Qualifiers: Nicotine product type: cigarettes Substance use status: uncomplicated Qualified Code(s): F17.210 - Nicotine dependence, cigarettes, uncomplicated Code(s): F17.200 - Nicotine dependence, unspecified, uncomplicated Status: Acute Assessment and Plan: The patient still smokes 3 packs of cigarettes per day. He is not interested in quitting smoking. A nicotine patch has been provided but the patient does not seem interested in use of the nicotine patch. He states that he intends to leave in the morning. (6) Sinusitis: Qualifiers: Sinusitis location: unspecified location Chronicity: acute Recurrence: recurrent Qualified Code(s): J01.91 - Acute recurrent sinusitis, unspecified Code(s): J32.9 - Chronic sinusitis, unspecified Status: Acute Assessment and Plan: I will stop Benadryl as this could dry out the patient's secretions and make it harder for him to clear mucus from his airways resulting in increased shortness of breath from his COPD. Instead will place patient on loratadine and Flonase. Will also add Mucinex. Plan Patient has been admitted as observation status. Subjective Date/time seen: 05/15/22 13:54 HPI-Narrative: 66-year-old male with a past medical history of gout, hyperlipidemia, central hypertension, type 2 diabetes mellitus, peripheral neuropathy, anxiety and depression, and COPD with continued tobacco use who presented to the ER from urgent care due to low oxygen saturations.? Patient has been having 3 days shortness of breath.? We around to urgent care the patient's oxygen saturations were 8
[2022-05-15 17:17] LABS: Glucose Point of Care 192 mg/dl (65-105)
[2022-05-15 20:19] LABS: Glucose Point of Care 412 mg/dl (65-105)
[2022-05-15 20:25] LABS: Glucose Point of Care 362 mg/dl (65-105)
[2022-05-15] MEDS: INSULIN ASPART (*BKC) 100 UNITS/ML 8 UNITS SUB-Q (20:41)
[2022-05-16] VITALS (18 sets, daily range): BP systolic 91–137; BP diastolic 50–64; PULSE 80–114; RESP 16–20; TEMP 35.8–36.9; O2SAT 91–99
[2022-05-16] MEDS: chlordiazePOXIDE (*CRX) 25 MG CAPSULE PO ×4 (00:07→17:11)
[2022-05-16 00:10] LABS: Glucose Point of Care 140 mg/dl (65-105)
[2022-05-16] MEDS: IPRATROPIUM BR 0.02% INH SOLN 0.5 MG/2.5 ML VIAL INHALATION ×4 (01:43→20:04)
[2022-05-16] MEDS: ALBUTEROL SULFATE NEB 2.5 MG/3 ML INH 5 MG INHALATION ×4 (01:50→20:04)
[2022-05-16 05:51] LABS: Hematocrit 41.8 % (42.0-52.0); Hemoglobin 14.5 g/dL (14.0-18.0); Immature Platelet Fraction Pct 5.8 % (0.9-11.2); Mean Corpuscular HGB Conc 34.7 g/dl (32-36); Mean Corpuscular Hemoglobin 37.5 pg (26-34); Mean Platelet Volume 10.1 fl (7.4-10.4); Platelet Count Result 73 k/mm3 (150-375); Red Blood Count 3.87 M/mm3 (4.6-6.20); Red Cell Distribution Width 12.4 % (11.5-14.5)
[2022-05-16] MEDS: methylPREDNISolone SOD SUCC 125 MG VIAL 60 MG IV PUSH ×3 (06:05→21:44)
[2022-05-16 06:13] LABS: Anion Gap 11 mmol/L (8-16); Blood Urea Nitrogen 21 mg/dL (9-20); Calcium 9.1 mg/dL (8.4-10.2); Carbon Dioxide 27 mmol/L (22-30); Chloride 94 mmol/L (98-107); Estimated CRCL calculation 79 ml/min; Estimated Glomerular Filt Rate > 60; Glucose 211 mg/dL (65-110); Magnesium 1.9 mg/dL (1.6-2.3); Potassium 3.7 mmol/L (3.4-5.0); Sodium 132 mmol/L (137-145)
[2022-05-16] MEDS: FLUTICASONE/UMECLIDIN/VILANTER 100-62.5-25 MCG ELLIPTA 1 PUFF INHALATION (08:03)
[2022-05-16 08:52] LABS: Glucose Point of Care 179 mg/dl (65-105)
[2022-05-16] MEDS: allopurinoL 300 MG TABLET PO (09:09)
[2022-05-16] MEDS: POTASSIUM CHLORIDE 20 MEQ TABLET 40 MEQ PO (09:09)
[2022-05-16] MEDS: MULTIVITAMINS THERAPEUTIC TAB (*BKC) 1 TABLET PO (09:09)
[2022-05-16] MEDS: guaiFENesin 12 HR 600 MG TABCR PO ×2 (09:09→20:24)
[2022-05-16] MEDS: THIAMINE HCL 100 MG TABLET PO (09:09)
[2022-05-16] MEDS: LORATADINE 10 MG TABLET PO (09:09)
[2022-05-16] MEDS: ATORVASTATIN 10 MG TABLET PO (09:09)
[2022-05-16] MEDS: GABAPENTIN 400 MG CAPSULE 1200 MG PO ×3 (09:10→17:08)
[2022-05-16] MEDS: busPIRone HCL 5 MG TABLET PO ×2 (09:11→17:08)
[2022-05-16] MEDS: busPIRone HCL 2.5 MG TABLET PO ×2 (09:11→17:08)
[2022-05-16] MEDS: DULoxetine HCL 60 MG CAPSULE.DR PO (09:11)
[2022-05-16] MEDS: FUROSEMIDE INJ 40 MG/4 ML VIAL IV PUSH (09:11)
[2022-05-16] MEDS: metFORMIN HCL 500 MG TABLET PO ×2 (09:11→17:09)
[2022-05-16] MEDS: NICOTINE (*PBKC) 21 MG PATCH 1 PATCH TRANSDERM (09:12)
[2022-05-16 12:23] LABS: Glucose Point of Care 253 mg/dl (65-105)
[2022-05-16] MEDS: INSULIN ASPART (*BKC) 100 UNITS/ML SUB-Q (12:44)
--- NOTE | 2022-05-16 14:00 | PM.IMPN ---
Progress Note: A&P Assessment and Plan (1) COPD exacerbation: Code(s): J44.1 - Chronic obstructive pulmonary disease with (acute) exacerbation Status: Acute Assessment and Plan: Patient has acute COPD exacerbation. No evidence of pneumonia or underlying infection. Will continue IV Solu-Medrol 60 mg q.8 hours. Will continue scheduled nebulizer treatments with albuterol and Atrovent. 05/16/2022 interval history: patient with history of COPD presented with exacerbation being treated with Solu-Medrol and bronchodilator, patient's lung sounds congested added Lasix, patient with history of alcohol abuse has visible tremors, patient has unsteady gait and he fell on his bottom, no head injury, will continue the CIWA protocol and monitor will have PT OT evaluate the patient further recommendation to follow (2) Acute respiratory failure with hypoxia: Code(s): J96.01 - Acute respiratory failure with hypoxia Status: Acute Assessment and Plan: Acute hypoxic respiratory failure due to acute COPD exacerbation. Will continue nebulizers and steroids and wean oxygen as tolerated. (3) Alcohol dependence: Qualifiers: Substance use status: unspecified alcohol-induced disorder Qualified Code(s): F10.29 - Alcohol dependence with unspecified alcohol-induced disorder Code(s): F10.20 - Alcohol dependence, uncomplicated Status: Acute Assessment and Plan: Patient has marked tremors in the ER. His states that these are at baseline. Ellipse patient also does appear somewhat irritable. Given the patient's heavy alcohol use history will start patient on thiamine supplementation as well as scheduled Librium 25 mg q.6 hours and p.r.n. Ativan as needed for CIWA scores greater than 8. Alcohol cessation education was provided to the patient. He is not interested in quitting drinking despite discussion of his cirrhosis. (4) Type 2 diabetes mellitus without complication, without long-term current use of insulin: Code(s): E11.9 - Type 2 diabetes mellitus without complications Status: Chronic Assessment and Plan: Will continue patient's home metformin and will add sliding scale insulin as patient will be on steroids for his COPD exacerbation. Will check Accu-Cheks a.c. HS and hypoglycemia protocol have been ordered. (5) Nicotine dependence: Qualifiers: Nicotine product type: cigarettes Substance use status: uncomplicated Qualified Code(s): F17.210 - Nicotine dependence, cigarettes, uncomplicated Code(s): F17.200 - Nicotine dependence, unspecified, uncomplicated Status: Acute Assessment and Plan: The patient still smokes 3 packs of cigarettes per day. He is not interested in quitting smoking. A nicotine patch has been provided but the patient does not seem interested in use of the nicotine patch. He states that he intends to leave in the morning. (6) Sinusitis: Qualifiers: Sinusitis location: unspecified location Chronicity: acute Recurrence: recurrent Qualified Code(s): J01.91 - Acute recurrent sinusitis, unspecified Code(s): J32.9 - Chronic sinusitis, unspecified Status: Acute Assessment and Plan: I will stop Benadryl as this could dry out the patient's secretions and make it harder for him to clear mucus from his airways resulting in increased shortness of breath from his COPD. Instead will place patient on loratadine and Flonase. Will also add Mucinex. Plan Patient has been admitted as observation status. Subjective Date/time seen: 05/16/22 14:00 05/16/2022 interval history: patient with history of COPD presented with exacerbation being treated with Solu-Medrol and bronchodilator, patient's lung sounds congested added Lasix, patient with history of alcohol abuse has visible tremors, patient has unsteady gait and he fell on his bottom, no head injury, will continue the CIWA pro
[2022-05-16 17:17] LABS: Glucose Point of Care 147 mg/dl (65-105)
[2022-05-16 20:15] LABS: Glucose Point of Care 207 mg/dl (65-105)
[2022-05-17] VITALS (18 sets, daily range): BP systolic 90–127; BP diastolic 55–63; PULSE 93–122; RESP 16–22; TEMP 36.3–36.8; O2SAT 86–95
[2022-05-17] MEDS: chlordiazePOXIDE (*CRX) 25 MG CAPSULE PO ×3 (00:04→12:19)
[2022-05-17] MEDS: ALBUTEROL SULFATE NEB 2.5 MG/3 ML INH 5 MG INHALATION ×3 (01:46→14:06)
[2022-05-17] MEDS: IPRATROPIUM BR 0.02% INH SOLN 0.5 MG/2.5 ML VIAL INHALATION ×3 (01:46→14:06)
[2022-05-17 05:53] LABS: Hematocrit 48.4 % (42.0-52.0); Hemoglobin 16.5 g/dL (14.0-18.0); Immature Platelet Fraction Pct 4.9 % (0.9-11.2); Mean Corpuscular HGB Conc 34.1 g/dl (32-36); Mean Corpuscular Hemoglobin 37.5 pg (26-34); Platelet Count Result 91 k/mm3 (150-375); Red Cell Distribution Width 12.9 % (11.5-14.5); White Blood Count 10.3 K/mm3 (4.5-10.0)
[2022-05-17] MEDS: methylPREDNISolone SOD SUCC 125 MG VIAL 60 MG IV PUSH (05:56)
[2022-05-17 06:08] LABS: Anion Gap 10 mmol/L (8-16); Blood Urea Nitrogen 27 mg/dL (9-20); Calcium 9.5 mg/dL (8.4-10.2); Carbon Dioxide 28 mmol/L (22-30); Chloride 96 mmol/L (98-107); Estimated CRCL calculation 79 ml/min; Estimated Glomerular Filt Rate > 60; Glucose 173 mg/dL (65-110); Magnesium 1.9 mg/dL (1.6-2.3); Potassium 4.5 mmol/L (3.4-5.0); Sodium 134 mmol/L (137-145)
[2022-05-17] MEDS: FLUTICASONE/UMECLIDIN/VILANTER 100-62.5-25 MCG ELLIPTA 1 PUFF INHALATION (08:20)
[2022-05-17 08:22] LABS: Glucose Point of Care 171 mg/dl (65-105)
[2022-05-17] MEDS: GABAPENTIN 400 MG CAPSULE 1200 MG PO ×2 (08:59→12:19)
[2022-05-17] MEDS: NICOTINE (*PBKC) 21 MG PATCH 1 PATCH TRANSDERM (08:59)
[2022-05-17] MEDS: MULTIVITAMINS THERAPEUTIC TAB (*BKC) 1 TABLET PO (09:00)
[2022-05-17] MEDS: busPIRone HCL 2.5 MG TABLET PO (09:00)
[2022-05-17] MEDS: busPIRone HCL 5 MG TABLET PO (09:00)
[2022-05-17] MEDS: THIAMINE HCL 100 MG TABLET PO (09:00)
[2022-05-17] MEDS: metFORMIN HCL 500 MG TABLET PO (09:00)
[2022-05-17] MEDS: DULoxetine HCL 60 MG CAPSULE.DR PO (09:00)
[2022-05-17] MEDS: guaiFENesin 12 HR 600 MG TABCR PO (09:00)
[2022-05-17] MEDS: ATORVASTATIN 10 MG TABLET PO (09:00)
[2022-05-17] MEDS: LORATADINE 10 MG TABLET PO (09:00)
[2022-05-17] MEDS: allopurinoL 300 MG TABLET PO (09:00)
[2022-05-17] MEDS: FLUTICASONE PROPIONATE 0.05% NA SPR 16 GM BTL (*BKC) 2 SPRAY NASAL (09:01)
--- NOTE | 2022-05-17 10:41 | PC.NURSE ---
Held [address] Bender verbal order due to low BP
[2022-05-17 12:18] LABS: Glucose Point of Care 172 mg/dl (65-105)
--- NOTE | 2022-05-17 14:12 | HOMEO2EVAL ---
Evaluation was performed at [facility] Home Oxygen Evaluation RC: Home Oxygen (O2) Evaluation Start: 05/17/22 12:33 Freq: ONCE Status: Active Protocol: RPE Activity Type Activity Date Activity User E-sign Co-sign Detail Recorded Client Recorded Date Recorded By Document 05/17/22 13:45 SHILO [email or web address] 05/17/22 14:12 SHILO Document 05/17/22 13:46 SHILO [email or web address] 05/17/22 14:12 SHILO Document 05/17/22 13:48 SHILO [email or web address] 05/17/22 14:12 [facility] Document 05/17/22 13:49 SHILO [email or web address] 05/17/22 14:12 SHILO Document 05/17/22 14:00 SHILO [email or web address] 05/17/22 14:12 [facility] 05/17/22 05/17/22 05/17/22 13:45 13:46 13:48 Home O2 Evaluation Test Phase Resting Exercise Exercise Oxygen Delivery Room Air Room Air Nasal Cannula Oxygen Flow Rate (L/min) 1 Pulse Oximetry (90-100 %) 92 86 L 87 L Pulse Rate (60-100 beats/min) 103 H 122 H Ambulation Distance (feet) Ambulation Distance (meters) Home Oxygen Evaluation Comments Treatment Charges O2 Evaluation - Inpatient 05/17/22 05/17/22 13:49 14:00 Home O2 Evaluation Test Phase Exercise Resting Oxygen Delivery Nasal Cannula Room Air Oxygen Flow Rate (L/min) 2 Pulse Oximetry (90-100 %) 89 L 91 Pulse Rate (60-100 beats/min) 106 H Ambulation Distance (feet) 150 Ambulation Distance (meters) 45.71 Home Oxygen Evaluation Comments Pt requires 2 L O2 with exertion/ activity Treatment Charges
--- NOTE | 2022-05-17 14:35 | PM.DS ---
DS: Admitting Diagnosis Discharge Date 05/17/2022 Admitting Diagnosis shortness of breath DS: Discharge Diagnosis Discharge Diagnosis (1) COPD exacerbation: Code(s): J44.1 - Chronic obstructive pulmonary disease with (acute) exacerbation Status: Acute Assessment and Plan: Patient has acute COPD exacerbation. No evidence of pneumonia or underlying infection. Will continue IV Solu-Medrol 60 mg q.8 hours. Will continue scheduled nebulizer treatments with albuterol and Atrovent. 05/16/2022 interval history: patient with history of COPD presented with exacerbation being treated with Solu-Medrol and bronchodilator, patient's lung sounds congested added Lasix, patient with history of alcohol abuse has visible tremors, patient has unsteady gait and he fell on his bottom, no head injury, will continue the CIWA protocol and monitor will have PT OT evaluate the patient further recommendation to follow (2) Acute respiratory failure with hypoxia: Code(s): J96.01 - Acute respiratory failure with hypoxia Status: Acute Assessment and Plan: Acute hypoxic respiratory failure due to acute COPD exacerbation. Will continue nebulizers and steroids and wean oxygen as tolerated. (3) Alcohol dependence: Qualifiers: Substance use status: unspecified alcohol-induced disorder Qualified Code(s): F10.29 - Alcohol dependence with unspecified alcohol-induced disorder Code(s): F10.20 - Alcohol dependence, uncomplicated Status: Acute Assessment and Plan: Patient has marked tremors in the ER. His states that these are at baseline. Ellipse patient also does appear somewhat irritable. Given the patient's heavy alcohol use history will start patient on thiamine supplementation as well as scheduled Librium 25 mg q.6 hours and p.r.n. Ativan as needed for CIWA scores greater than 8. Alcohol cessation education was provided to the patient. He is not interested in quitting drinking despite discussion of his cirrhosis. (4) Type 2 diabetes mellitus without complication, without long-term current use of insulin: Code(s): E11.9 - Type 2 diabetes mellitus without complications Status: Chronic Assessment and Plan: Will continue patient's home metformin and will add sliding scale insulin as patient will be on steroids for his COPD exacerbation. Will check Accu-Cheks a.c. HS and hypoglycemia protocol have been ordered. (5) Nicotine dependence: Qualifiers: Nicotine product type: cigarettes Substance use status: uncomplicated Qualified Code(s): F17.210 - Nicotine dependence, cigarettes, uncomplicated Code(s): F17.200 - Nicotine dependence, unspecified, uncomplicated Status: Acute Assessment and Plan: The patient still smokes 3 packs of cigarettes per day. He is not interested in quitting smoking. A nicotine patch has been provided but the patient does not seem interested in use of the nicotine patch. He states that he intends to leave in the morning. (6) Sinusitis: Qualifiers: Sinusitis location: unspecified location Chronicity: acute Recurrence: recurrent Qualified Code(s): J01.91 - Acute recurrent sinusitis, unspecified Code(s): J32.9 - Chronic sinusitis, unspecified Status: Acute Assessment and Plan: I will stop Benadryl as this could dry out the patient's secretions and make it harder for him to clear mucus from his airways resulting in increased shortness of breath from his COPD. Instead will place patient on loratadine and Flonase. Will also add Mucinex. Plan Patient has been admitted as observation status. DS: Summary Hospital Course Reason for hospitalization: Chief Complaint: Cough, shortness breath, low oxygen saturation Narrative: 66-year-old male with a past medical history of gout, hyperlipidemia, central hypertension, type 2 diabetes mellitus, peripheral neuropathy, anxiet
== END 2022-05-17 15:30 | disposition home or self-care (01) | DRG 191 ==
LOC: ANHED 21:19 → ANH3MED 22:12
PROVIDERS: Admitting Provider Internal Medicine; Emergency Provider Emergency Medicine; Visit Provider Family Medicine
DX: J44.1 Chronic obstructive pulmonary disease with (acute) exacerbation (principal); F10.29 Alcohol dependence with unspecified alcohol-induced disorder; J32.9 Chronic sinusitis, unspecified; Z20.822 Contact with and (suspected) exposure to COVID-19; F41.8 Other specified anxiety disorders; G62.9 Polyneuropathy, unspecified; I87.2 Venous insufficiency (chronic) (peripheral); K70.30 Alcoholic cirrhosis of liver without ascites; D69.6 Thrombocytopenia, unspecified; M10.9 Gout, unspecified; E11.42 Type 2 diabetes mellitus with diabetic polyneuropathy; I73.9 Peripheral vascular disease, unspecified; F17.210 Nicotine dependence, cigarettes, uncomplicated
CPT/HCPCS: 36415; 71046; 80048; 80053; 82948; 83735; 83880; 85025; 85027; 85055; 87502; 93005; 94618; 94640; 96374; 96375; 96376; 97161; 97165; 99285; A9270; C9803; G0378; J1815; J1940; J2060; J2930; J3411; U0003; U0005

== ENCOUNTER 2022-05-25 09:58 | Outpatient (CLI) | payer OTHER, SELFPAY ==
[2022-05-25 20:27] LABS: Appearance Urine Turbid (Clear); Bilirubin Urine Negative (Negative); Blood Urine 2+ (Negative); Color Urine Yellow (Yellow); Glucose Urine UA Negative (Negative); Ketones Urine Negative (Negative); Leukocyte Esterase Ur 3+ LEU/UL (Negative); Nitrate Urine Negative (Negative); Protein Urine Trace mg/dL (Negative); pH Urine 6.5 (5.0-9.0)
[2022-05-25 20:34] LABS: Bacteria Urine 2+ /hpf; Mucus Urine Rare /lpf; RBC Urine 51-75 /hpf (0-2); Squamous Epithelial Cell Urine Moderate /hpf (Few); WBC Clumps Urine Present /HPF; WBC Urine >75 /hpf
[2022-05-25 20:35] LABS: Add Urine Microscopic? YES
== END 2022-05-25 09:59 | disposition home or self-care (01) ==
PROVIDERS: PCP Family Medicine; Visit Provider Family Medicine
DX: N39.0 Urinary tract infection, site not specified (principal)
CPT/HCPCS: 81001; 87077; 87086; 87186

== ENCOUNTER 2022-07-05 17:11 | Outpatient (CLI) | payer OTHER, SELFPAY ==
--- NOTE | ~2022-07-05 | US_ITS ---
EXAMINATION: US venous doppler [facility] DATE: 07/05/2022 17:45 INDICATION: acute leg swelling, warmth . TECHNIQUE: Grayscale images without and with compression and Doppler images of the left lower extremi ty veins were obtained. COMPARISON: None FINDINGS: The left common femoral vein, profunda femoral vein, femoral vein, popliteal vein, peroneal vein, and posterior tibial veins are patent. IMPRESSION: 1. Patent left lower extremity veins. No evidence of deep venous thrombosis. Reviewed, dictated and finalized at location K. K CAR OPERATOR
== END 2022-07-05 17:12 | disposition home or self-care (01) ==
PROVIDERS: PCP Family Medicine; Visit Provider Family Medicine
DX: R22.42 Localized swelling, mass and lump, left lower limb (principal)
CPT/HCPCS: 93971

== ENCOUNTER 2022-07-16 16:46 | Emergency (ER) | payer OTHER, SELFPAY ==
--- NOTE | ~2022-07-16 | XR_ITS ---
EXAMINATION: XR ribs RT 2V w CXR 2V INDICATION: Right rib pain TECHNIQUE: Frontal and lateral views of the chest and 3 views of the right ribs were obtained. COMPARISON: 05/14/2022 FINDINGS: There is a minimally displaced fracture at the anterolateral aspect of the right fourth rib . No pleural effusion or pneumothorax. The lungs are free of acute opacities. The cardiomediastinal s ilhouette is normal. There is moderate thoracic spondylosis. IMPRESSION: 1. Minimally displaced fracture at the anterolateral aspect of the right fourth rib. Reviewed, dictated and finalized at location F. IONARY COORDINATOR
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
--- NOTE | ~2022-07-16 | XR_ITS ---
EXAMINATION: XR clavicle LT INDICATION: Left clavicle pain TECHNIQUE: Two views of the left clavicle are obtained. COMPARISON: 04/09/2019 FINDINGS: Bone alignment is normal. There is no fracture. There is mild osteoarthritis of the glenohu meral and acromioclavicular joints. IMPRESSION: 1. No acute osseous abnormality. Reviewed, dictated and finalized at location F. SCRUBBER OPERATOR
[2022-07-16 16:40] VITALS: BP 86/45; PULSE 86; RESP 16; TEMP 36.4
[2022-07-16 16:48] VITALS: PULSE 85; RESP 18
[2022-07-16 16:49] VITALS: BP 86/65; PULSE 83; RESP 16
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
[2022-07-16 17:45] VITALS: BP 117/76; PULSE 89; RESP 16; O2SAT 94
[2022-07-16 17:46] VITALS: BP 111/73; PULSE 90; PULSE 91; RESP 16; O2SAT 96; O2SAT 98
[2022-07-16] MEDS: SODIUM CHLORIDE 0.9% IV 1,000 ML 999 ML (17:48)
[2022-07-16 17:54] LABS: Basophils Percent Auto 0.3 % (0.2-1.2); Eosinophils Absolute Auto 0.1 K/mm3 (0-0.3); Hematocrit 42.5 % (42.0-52.0); Hemoglobin 15.1 g/dL (14.0-18.0); Immature Granulocyte Absolute 0.04 K/mm3 (0.00-0.031); Immature Granulocyte Percent A 0.7 % (0-0.5); Lymphocytes Absolute Auto 1.83 K/mm3 (0.9-3.2); Mean Corpuscular HGB Conc 35.5 g/dl (32-36); Mean Corpuscular Hemoglobin 37.3 pg (26-34); Mean Corpuscular Volume 104.9 fl (80-100); Monocytes Absolute Auto 0.5 K/mm3 (0.1-0.6); Monocytes Percent Auto 9.4 % (2.6-8.5); Neutrophils Absolute Auto 3.2 K/mm3 (1.3-6.7); Neutrophils Percent Auto 56.6 % (45.5-73.1); Platelet Count Result 90 k/mm3 (150-375); Red Blood Count 4.05 M/mm3 (4.6-6.20); Red Cell Distribution Width 13.2 % (11.5-14.5); White Blood Count 5.7 K/mm3 (4.5-10.0)
[2022-07-16 18:02] LABS: Alanine Aminotransferase 25 U/L (6-50); Albumin Level 3.8 g/dL (3.5-5.1); Alkaline Phosphatase 80 U/L (38-126); Anion Gap 12 mmol/L (8-16); Aspartate Amino Transferase 49 U/L (17-59); Bilirubin,Total 0.6 mg/dL (0.2-1.3); Blood Urea Nitrogen 10 mg/dL (9-20); Calcium 8.5 mg/dL (8.4-10.2); Carbon Dioxide 27 mmol/L (22-30); Chloride 91 mmol/L (98-107); Estimated CRCL calculation 100 ml/min; Estimated Glomerular Filt Rate > 60; Ethanol 178 mg/dL (<10); Glucose 121 mg/dL (65-110); Potassium 3.5 mmol/L (3.4-5.0); Sodium 130 mmol/L (137-145)
== END 2022-07-16 18:02 | disposition short-term general hospital (02) ==
PROVIDERS: Emergency Provider Nurse Practitioner Family; PCP Family Medicine
DX: S12.100A Unspecified displaced fracture of second cervical vertebra, initial encounter for closed fracture (principal); J44.9 Chronic obstructive pulmonary disease, unspecified; E11.9 Type 2 diabetes mellitus without complications; F17.210 Nicotine dependence, cigarettes, uncomplicated; E78.00 Pure hypercholesterolemia, unspecified; V49.40XA Driver injured in collision with unspecified motor vehicles in traffic accident, initial encounter
CPT/HCPCS: 36415; 70450; 71046; 71100; 72125; 73000; 80053; 80307; 85025; 85055; 99285; J7030

== ENCOUNTER 2022-09-22 15:45 | Outpatient (RCR) | payer OTHER, SELFPAY ==
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
--- NOTE | 2022-09-01 14:28 | PCPTNOTE ---
Called patient 09/01/22 after conversation with referring DRIER TENDER on 08/27/22 regarding restrictions: no lifting more than 10 pounds and no reaching higher than shoulder level.
--- NOTE | 2022-09-29 13:58 | PCPTNOTE ---
Patient called and cancelled appointment. Did not want to reschedule therapy at this time
--- NOTE | 2022-12-17 14:23 | PCPTNOTE ---
Patient has self discharged from therapy.
== END 2022-11-15 11:13 | disposition home or self-care (01) ==
LOC: ANHGOSHPT 15:45
PROVIDERS: PCP Family Medicine; Visit Provider Nurse Practitioner
DX: S09.90XD Unspecified injury of head, subsequent encounter (principal); S12.101D Unspecified nondisplaced fracture of second cervical vertebra, subsequent encounter for fracture with routine healing
CPT/HCPCS: 97110; 97140; 97162

== ENCOUNTER 2023-02-11 15:09 | Outpatient (CLI) | payer MEDICARE, SELFPAY ==
[2023-02-11 16:22] LABS: Basophils Percent Auto 0.3 % (0.2-1.2); Eosinophils Absolute Auto 0.1 K/mm3 (0-0.3); Eosinophils Percent Auto 0.6 % (0-4.4); Hematocrit 46.5 % (42.0-52.0); Hemoglobin 16.7 g/dL (14.0-18.0); Immature Granulocyte Absolute 0.03 K/mm3 (0.00-0.031); Immature Granulocyte Percent A 0.3 % (0-0.5); Immature Platelet Fraction Pct 4.2 % (0.9-11.2); Lymphocytes Absolute Auto 1.61 K/mm3 (0.9-3.2); Lymphocytes Percent Auto 18.7 % (18.3-44.2); Mean Corpuscular HGB Conc 35.9 g/dl (32-36); Mean Corpuscular Hemoglobin 36.9 pg (26-34); Mean Corpuscular Volume 102.6 fl (80-100); Mean Platelet Volume 9.6 fl (7.4-10.4); Monocytes Absolute Auto 0.8 K/mm3 (0.1-0.6); Monocytes Percent Auto 8.8 % (2.6-8.5); Neutrophils Absolute Auto 6.2 K/mm3 (1.3-6.7); Neutrophils Percent Auto 71.3 % (45.5-73.1); Platelet Count Result 112 k/mm3 (150-375); Prothrombin Time 13.5 Seconds (11.1-14.7); Red Blood Count 4.53 M/mm3 (4.6-6.20); Red Cell Distribution Width 13.3 % (11.5-14.5); White Blood Count 8.6 K/mm3 (4.5-10.0)
[2023-02-11 16:23] LABS: Partial Thromboplastin Time 32.2 SECONDS (22.3-36.8)
[2023-02-11 16:37] LABS: Hemoglobin A1C 4.8 % (<5.7)
[2023-02-11 16:56] LABS: Cholesterol 139 mg/dL (0-200); HDL Direct 92 mg/dL; Triglycerides 100 mg/dL (<150); Uric Acid 3.8 mg/dL (3.5-8.5)
[2023-02-11 17:04] LABS: Microalbumin Urine Random 12.4 mg/L (0-16.7)
[2023-02-11 17:06] LABS: Creatinine Urine 17.8 mg/dL; MALB Creatinine Ratio 69.7 mg/g (0-30)
[2023-02-11 17:11] LABS: LDL Cholesterol Direct 36 mg/dL
[2023-02-11 17:15] LABS: Prostate Specific Antigen 1.1 ng/mL (< OR = 4.0)
== END 2023-02-11 15:10 | disposition home or self-care (01) ==
LOC: ANHGOSHLAB 15:11
PROVIDERS: PCP Family Medicine; Visit Provider Family Medicine
DX: R53.83 Other fatigue (principal); E11.9 Type 2 diabetes mellitus without complications; R58 Hemorrhage, not elsewhere classified; M10.9 Gout, unspecified; Z13.220 Encounter for screening for lipoid disorders; Z12.5 Encounter for screening for malignant neoplasm of prostate; Z79.01 Long term (current) use of anticoagulants
CPT/HCPCS: 36415; 80061; 82043; 83036; 84153; 84550; 85025; 85055; 85610; 85730; G0103

== ENCOUNTER 2023-04-29 13:49 | Outpatient (CLI) | payer MEDICARE, SELFPAY ==
[2023-04-29 18:29] LABS: Alanine Aminotransferase 44 U/L (6-50); Albumin Level 3.6 g/dL (3.5-5.1); Alkaline Phosphatase 125 U/L (38-126); Anion Gap 5 mmol/L (8-16); Aspartate Amino Transferase 73 U/L (17-59); Bilirubin,Total 0.7 mg/dL (0.2-1.3); Blood Urea Nitrogen 11 mg/dL (9-20); Calcium 9.3 mg/dL (8.4-10.2); Carbon Dioxide 29 mmol/L (22-30); Chloride 96 mmol/L (98-107); Estimated Glomerular Filt Rate > 60; Glucose 70 mg/dL (65-110); Potassium 4.6 mmol/L (3.4-5.0); Sodium 130 mmol/L (137-145)
== END 2023-04-29 13:50 | disposition home or self-care (01) ==
LOC: ANHGOSHLAB 13:54
PROVIDERS: PCP Family Medicine; Visit Provider Family Medicine
DX: Z13.228 Encounter for screening for other metabolic disorders (principal)
CPT/HCPCS: 36415; 80053; 87070; 87075; 87147; 87181; 87186; 87205

== ENCOUNTER 2023-04-29 18:44 | Outpatient (NON) | payer MEDICARE, SELFPAY | END 2023-04-29 18:45 | disposition home or self-care (01) | LOC: ANHLAB 18:45 | PROVIDERS: PCP Family Medicine; Visit Provider Family Medicine | DX: I83.019 Varicose veins of right lower extremity with ulcer of unspecified site (principal); L97.919 Non-pressure chronic ulcer of unspecified part of right lower leg with unspecified severity | CPT/HCPCS: 87070; 87075; 87147; 87181; 87186; 87205 ==

== ENCOUNTER 2023-08-07 10:27 | Emergency (ER) | payer MEDICARE, SELFPAY ==
--- NOTE | ~2023-08-07 | XR_ITS ---
EXAMINATION: XR shoulder RT min 2V INDICATION: Right shoulder pain TECHNIQUE: Three views of the right shoulder are submitted. COMPARISON: None FINDINGS: Bone alignment is normal. There is no shoulder fracture. There is a minimally displaced ant erolateral fracture of the right ninth rib. Healed right-sided rib fractures are also noted. Glenohum eral and acromioclavicular joint spaces are normal. Soft tissues are unremarkable. IMPRESSION: 1. No acute osseous abnormality of the shoulder. 2. Acute anterolateral fracture of the right ninth rib. Reviewed, dictated and finalized at location F. SETTER
[2023-08-07 10:34] VITALS: BP 105/71; PULSE 100; RESP 16; TEMP 36.4; O2SAT 98
--- NOTE | 2023-08-07 11:05 | ED.UPPEXIN ---
HPI - Extremity Injury (Upper) General Chief Complaint: Extremity Injury, Upper Stated Complaint: Shoulder pain Time Seen by Provider: 08/07/23 10:50 Source: patient, family (), RN notes reviewed and old records reviewed Mode of arrival: ambulatory Limitations: no limitations History of Present Illness HPI narrative: Patient presents today complaining of right shoulder pain. 2-3 days ago he fell backwards at home when going from a bending over position to upright position that night. Currently rates his pain 9/10 with movement. He has tried icy Hot and ibuprofen with mild relief. Denies numbness or tingling in the arm or hand, apart from baseline tingling in the hand. Related Data Home Medications Medication Instructions Recorded Confirmed multivitamin 1 tablet PO DAILY 03/25/21 08/07/23 Allergies Allergy/AdvReac Type Severity Reaction Status Date / Time No Known Allergies Allergy Verified 08/07/23 10:37 Review of Systems Review of Systems: CONSTITUTIONAL: Denies body aches, fever, chills, or sweats. EYES: Denies visual changes, redness, or discharge. ENT: Denies rhinorrhea, congestion, sore throat, or otalgia. CARDIOVASCULAR: Denies chest pain, palpitations, or edema. RESPIRATORY: Denies cough or dyspnea. GASTROINTESTINAL: Denies abdominal pain, nausea, vomiting, or diarrhea. GENITOURINARY: Denies dysuria or hematuria. SKIN: Denies rash, itching, or wounds. MUSCULOSKELETAL: Denies back pain, or myalgia.+ right shoulder pain NEUROLOGIC: Denies headache, numbness, tingling, or weakness. PSYCH: Denies depression or anxiety. [facility] Past Medical History Medical History Alcohol dependence Alcoholic cirrhosis Chronic obstructive pulmonary disease, unspecified COPD (chronic obstructive pulmonary disease) Depression with anxiety Diabetes mellitus Diabetes mellitus type 2 in obese Gout Hepatitis A Nicotine dependence Onychomycosis Peripheral neuropathy Peripheral neuropathy Peripheral vascular disease Portal venous hypertension Pure hypercholesterolemia Stasis dermatitis of both legs Thrombocytopenia Type 2 diabetes mellitus without complication, without long-term current use of insulin Diagnosed in 2018 last hemoglobin A1c 5.07 October 2021 Xerosis cutis Surgical History Surgical History History of colonoscopy with polypectomy (03/2018) History of cystoscopy S/P TURP (status post transurethral resection of prostate) Family History Family History Mother Carcinoma of colon, Onset Age: 77 Father Diabetes mellitus Sibling Diabetes mellitus Social History Social History Social History: Code status: Full code Surrogate decision maker: Smoking packs per day: 3 Smoking cigarettes per day: 60.0 Years smoked: 50 Smoking pack-years: 150.00 Smoking status: Current every day smoker Tobacco type: cigarettes Second hand tobacco smoke exposure: No Smoking end date: 07/09/22 Additional smoking assessment comments: patient stated he smoked on and off for most of his life. Alcohol intake: current Drinks per week: 12 Alcohol use details: The patient drinks up to a 12 pack of beer per day. Substance use: never Substance use type: does not use Current Housing: Decline to Answer Concerned About Future Housing: Decline to Answer Difficulty Paying Gas/Electric Bills: Decline to Answer Difficulty Paying for Meds: Decline to Answer Currently Unemployed: Decline to Answer Education: Decline to Answer Difficulty w/ Childcare or Family Care: Decline to Answer Additional living arrangements comments: He lives with his of 33 years. They raised 3 children. Additional occupation/education comments: He sti
== END 2023-08-07 11:11 | disposition home or self-care (01) ==
PROVIDERS: Emergency Provider Nurse Practitioner; PCP Family Medicine
DX: S49.91XA Unspecified injury of right shoulder and upper arm, initial encounter (principal); W19.XXXA Unspecified fall, initial encounter; J44.9 Chronic obstructive pulmonary disease, unspecified; M10.9 Gout, unspecified; E11.42 Type 2 diabetes mellitus with diabetic polyneuropathy; E11.51 Type 2 diabetes mellitus with diabetic peripheral angiopathy without gangrene; E78.00 Pure hypercholesterolemia, unspecified; K70.30 Alcoholic cirrhosis of liver without ascites; Z87.891 Personal history of nicotine dependence; F41.8 Other specified anxiety disorders
CPT/HCPCS: 73030; 99213; G0463

== ENCOUNTER 2023-09-05 09:29 | Outpatient (CLI) | payer MEDICARE, SELFPAY ==
--- NOTE | ~2023-09-05 | MR_ITS ---
MRI of the right shoulder Technique: Axial proton-density fat-sat images, coronal proton density fat-sat and T2 fat-sat images, and sagittal T1-weighted and T2 fat-sat images were acquired. Clinical History: Specified disorders and tendon Findings: There is moderate AC joint degenerative change. Coracoclavicular, coracoacromial, and corac ohumeral ligaments are intact. There are complete, full-thickness tears of the supraspinatus and infraspinatus tendons, which are re tracted to the level of the glenohumeral joint. Fluid-filled gap measures approximately 5.1 x 5.0 cm. Subscapularis tendon is intact. Long head of biceps tendon appears frayed and thinned, with probable complete rupture.. There is probable degenerative attenuation of the superior labrum. Inferior glenohumeral ligament is intact. There is fluid passing from the glenohumeral joint through the rotator cuff defect into the subacromial/subdeltoid bursa. Humeral head is high riding. No degene rative change of the glenohumeral joint. There is edematous change involving the anterior deltoid whi ch could reflect a muscle contusion and/or grade 2 strain. Possible minimal fatty atrophy of the supr aspinatus and infraspinatus muscle bellies. Impression: Complete, full-thickness tears of the supraspinatus and infraspinatus tendons, as detailed above. Pos sible suspected minimal fatty atrophy. Extensive edematous change of the anterior deltoid, compatible with muscle contusion and/or grade 2 s train. Suspected complete rupture of the proximal long head biceps tendon. Degenerative attenuation of the superior labrum. Moderate AC joint degenerative change. Reviewed, dictated and finalized at location . GHT AGENT Impression: Complete, full-thickness tears of the supraspinatus and infraspinatus tendons, as detailed above. Possible suspected minimal fatty atrophy. Extensive edematous change of the anterior deltoid, compatible with muscle cont usion and/or grade 2 strain. Suspected complete rupture of the proximal long head biceps tendon. Degenerative attenuation of the superior labrum. Moderate AC joint degenerative change.
--- NOTE | ~2023-09-05 | MR_ITS ---
MRI of the left shoulder Technique: Axial proton-density fat-sat images, coronal proton density fat-sat and T2 fat-sat images, and sagittal T1-weighted and T2 fat-sat images were acquired. Clinical History: Unspecified disorder synovium and tendon Findings: There is moderate to advanced AC joint degenerative change. Coracoclavicular, coracoacromia l, and coracohumeral ligaments are intact. There are complete, full-thickness tears involving the entirety of the supraspinatus and infraspinatu s tendons. Fluid-filled gap measures up to approximately 3.8 x 4.0 cm in extent. Subscapularis tendon is intact. Tendon of the long head of the biceps is intact. No labral tear evident. Inferior glenohumeral ligament is intact. There is fluid passing from the medial joint through the rotator cuff defect into the subacromial/sub deltoid bursa. No degenerative change of the glenohumeral joint. No muscle atrophy or edema evident. Impression: Complete, full-thickness tears of the supraspinatus and infraspinatus tendons, as detailed above. Moderate AC joint degenerative change. Reviewed, dictated and finalized at location . ICIAN OFFICE REP Impression: Complete, full-thickness tears of the supraspinatus and infraspinatus tendons, as detailed above. Moderate AC joint degenerative change.
== END 2023-09-05 09:30 | disposition home or self-care (01) ==
PROVIDERS: PCP Family Medicine; Visit Provider Nurse Practitioner Family
DX: M67.919 Unspecified disorder of synovium and tendon, unspecified shoulder (principal); S49.90XA Unspecified injury of shoulder and upper arm, unspecified arm, initial encounter; S49.92XA Unspecified injury of left shoulder and upper arm, initial encounter; T14.90XA Injury, unspecified, initial encounter
CPT/HCPCS: 73221

== ENCOUNTER 2023-10-18 16:04 | Outpatient (CLI) | payer MEDICARE, SELFPAY ==
[2023-10-18 19:44] LABS: Basophils Percent Auto 0.4 % (0.2-1.2); Eosinophils Absolute Auto 0.1 K/mm3 (0-0.3); Eosinophils Percent Auto 0.8 % (0-4.4); Hemoglobin 13.1 g/dL (14.0-18.0); Immature Granulocyte Absolute 0.04 K/mm3 (0.00-0.031); Immature Granulocyte Percent A 0.4 % (0-0.5); Lymphocytes Absolute Auto 2.22 K/mm3 (0.9-3.2); Lymphocytes Percent Auto 21.3 % (18.3-44.2); Mean Corpuscular HGB Conc 34.5 g/dl (32-36); Mean Corpuscular Volume 101.6 fl (80-100); Mean Platelet Volume 8.8 fl (7.4-10.4); Monocytes Absolute Auto 0.5 K/mm3 (0.1-0.6); Monocytes Percent Auto 4.9 % (2.6-8.5); Neutrophils Absolute Auto 7.6 K/mm3 (1.3-6.7); Neutrophils Percent Auto 72.2 % (45.5-73.1); Platelet Count Result 202 k/mm3 (150-375); Red Blood Count 3.74 M/mm3 (4.6-6.20); Red Cell Distribution Width 12.1 % (11.5-14.5); White Blood Count 10.4 K/mm3 (4.5-10.0)
[2023-10-18 20:07] LABS: Alanine Aminotransferase 38 U/L (6-50); Albumin Level 3.8 g/dL (3.5-5.1); Alkaline Phosphatase 134 U/L (38-126); Anion Gap 1 mmol/L (8-16); Aspartate Amino Transferase 57 U/L (17-59); Bilirubin,Total 0.9 mg/dL (0.2-1.3); Blood Urea Nitrogen 5 mg/dL (9-20); Calcium 9.5 mg/dL (8.4-10.2); Carbon Dioxide 34 mmol/L (22-30); Chloride 95 mmol/L (98-107); Estimated Glomerular Filt Rate > 60; Glucose 89 mg/dL (65-110); Potassium 4.2 mmol/L (3.4-5.0); Sodium 130 mmol/L (137-145)
== END 2023-10-18 16:05 | disposition home or self-care (01) ==
PROVIDERS: PCP Family Medicine; Visit Provider Emergency Medicine
DX: R23.3 Spontaneous ecchymoses (principal)
CPT/HCPCS: 36415; 80053; 85025

== ENCOUNTER → 2023-10-26 15:14 | Outpatient (CLI) | payer MEDICARE, SELFPAY ==
--- NOTE | ~2023-10-26 | CT_ITS ---
EXAMINATION: CT abdomen pelvis wo con DATE: 10/26/2023 15:24 INDICATION: Left abdominal discoloration. TECHNIQUE: Computed tomography (CT) of the abdomen and pelvis was performed without intravenous contr ast. Automated exposure control and iterative reconstruction technique were employed. The dose-length product was 787.27 mGy-cm. COMPARISON: CT abdomen and pelvis 09/28/2018 FINDINGS: The visualized portions of the lung bases demonstrate small peripheral nodules in the lower lobes, left worse than right, consistent with pneumonia. No pleural effusion. The heart size is norm al. No pericardial effusion. The liver demonstrates surface nodularity, consistent with cirrhosis. Th ere is a gallstone in the gallbladder, which is normal in size. Calcifications in the spleen are cons istent with old granulomatous disease. The pancreas, adrenal glands, and kidneys are normal. There is calcified atherosclerosis of the aorta and many of the other arteries. The bladder is distended with diverticula and chronic wall thickening. There is diverticulosis of the colon without evidence of di verticulitis. The appendix is normal. There are no dilated loops of bowel. There are no pathologicall y enlarged lymph nodes. There is no free intraperitoneal fluid. There is severe lower lumbar spondylo sis. There are chronic compression fractures of T12 and L2. IMPRESSION: 1. Mild pneumonia involving the lower lobes. 2. Cirrhosis of the liver. Reviewed, dictated and finalized at location A. ERY CONTAINER TESTER ALUMINUM
== END ==
PROVIDERS: PCP Family Medicine; Visit Provider Emergency Medicine
DX: L81.9 Disorder of pigmentation, unspecified (principal); K74.60 Unspecified cirrhosis of liver; J18.9 Pneumonia, unspecified organism
CPT/HCPCS: 74176

== ENCOUNTER 2023-12-06 10:17 | Outpatient (CLI) | payer MEDICARE, SELFPAY ==
[2023-12-06 12:33] LABS: Prothrombin Time 13.4 Seconds (11.1-14.7)
[2023-12-06 12:49] LABS: Anion Gap 4 mmol/L (4-12); Blood Urea Nitrogen 9 mg/dL (9-20); Carbon Dioxide 31 mmol/L (22-30); Chloride 99 mmol/L (98-107); Estimated Glomerular Filt Rate > 60; Glucose 93 mg/dL (65-110); Sodium 134 mmol/L (137-145)
[2023-12-06 13:55] LABS: Potassium 3.9 mmol/L (3.4-5.0)
== END 2023-12-06 10:18 | disposition home or self-care (01) ==
LOC: ANHSURGERY 10:22
PROVIDERS: Anesthesiology; PCP Family Medicine; Visit Provider Orthopaedic Surgery
DX: Z01.818 Encounter for other preprocedural examination (principal); K74.60 Unspecified cirrhosis of liver
CPT/HCPCS: 36415; 80048; 85610; 85730

== ENCOUNTER 2023-12-08 00:05 | Day surgery (SDC) | payer MEDICARE, SELFPAY ==
--- NOTE | 2023-12-02 14:13 | PC.NURSE ---
Report to the Outpatient Waiting Room, entrance under the green pavilion located off [facility], at time __0830 on date _12/08/23 . Planned Procedure Time: ___1030 . Time changes happen often and if your time is changed the preop area will call you the afternoon before. - You and your visitor will be asked to self-screen and do not enter if you have any COVID symptoms. - A mask is optional within the hospital at this time. Patients may have clear liquids (water, carbonated beverages, clear teas, apple juice) until 3 hours prior to surgery ( 0730)with a maximum of 20 ounces. - No food from midnight until time of surgery - Infants may have breast milk until 4 hours before surgery, infant formula 6 hours prior to surgery. - Children will be allowed to drink immediately following surgery. If applicable, please bring a bottle or sippy cup to assist with drinking. Juice, water, soda, and popsicles are readily available. For infants on formula, please bring formula the day of surgery. Pacifiers are allowed. Take the following medications with a SIP of water the morning of surgery: ___ANORO INHALER,BUSPIRONE,DULOXETINE,GABAPENTIN DO NOT STOP ANY OF YOUR OTHER PRESCRIPTION MEDICATIONS PRIOR TO SURGERY ?EXCEPT THE FOLLOWING Medications to discontinue per physician HOLD ASPIRIN/IBUPROFEN 7 DAYS PRE OP PER DR HERRERA.LAST DOSE 11/30/23. HOLD ALL VITAMINS AND SUPPLEMENTS 3 DAYS PRE OP.LAST DOSE 12/04/23 Please no make-up, nail tamazight, hairspray, perfume, deodorant, or body powder the day of surgery. No jewelry (including any body piercings) or valuables the day of surgery, leave them at home. Please take a shower or bath the night before, or the morning of, surgery with an antibacterial soap. Wear comfortable, loose fitting clothing. Children are encouraged to wear pajamas. - Jewelry must be removed prior to entering the operating room. Rings and piercings that are not removed may be cut off. - The hospital will not accept responsibility for valuables. - Please leave all valuables, including medications, at home the day of surgery. If you are going home after surgery, a licensed airport shuttle driver must drive you home. - NO public transportation without another adult if you receive anesthesia. - We recommend that an adult stay with you for 24 hours following discharge. - We also recommend that you do not drive, make important decision, drink alcoholic beverages, or take any drugs that were not prescribed by your health care provider for at least 24 hours after your discharge time. Follow any additional instructions given to you from your surgeon. If you or anyone in your household have experienced Covid symptoms in the past week, please notify your surgeon or the nurse liaison at the phone number below for possible testing. Telephone instructions given to __WIFE MONA and asked if any additional questions and then verbalized understanding. Patient advised to call surgeon office or pre surgery nurse liaison [phone] if any additional questions.
[2023-12-02 14:20] VITALS: BMI 21.7
[2023-12-08] VITALS (11 sets, daily range): BP systolic 108–162; BP diastolic 52–81; PULSE 70–99; RESP 12–20; TEMP 36.2–36.5; O2SAT 92–100
[2023-12-08] MEDS: LACTATED RINGERS 1,000 ML 30 ML IV CONT ×2 (09:23→13:08)
[2023-12-08] MEDS: ACETAMINOPHEN 500 MG TABLET 1000 MG PO (09:23)
[2023-12-08] MEDS: KETOROLAC 15 MG/ML VIAL (*BKC) IV PUSH (10:07)
--- NOTE | 2023-12-08 10:26 | WPDANESEPPF ---
Anes - Initial Pre Proc Eval Procedure: Operation Date: 12/08/23 10:30 Proposed Procedures p Left Shoulder Arthroscopic Rotator Cuff Repair, Proceed as Indicated - Saeid Bradford MD Date/Time: 12/08/23 10:26 Surgeon: Saeid Bradford MD Pre Op Diagnosis: Complete Lt Rot Cuff Tear Patient Data Age: 68 Gender: M Height: 1.85 m Weight: 83.6 kg Last Vital Signs Temp 97.7 F 12/08/23 08:40 Pulse 70 12/08/23 08:40 Resp 18 12/08/23 08:40 BP 108/67 12/08/23 08:40 Pulse Ox 100 12/08/23 08:40 O2 Del Method Room Air 12/08/23 08:40 Allergies Allergy/AdvReac Type Severity Reaction Status Date / Time No Known Allergies Allergy Verified 12/08/23 09:00 Home Medications Medication Instructions Recorded Confirmed Type multivitamin 1 tablet PO DAILY 03/25/21 12/02/23 History fluticasone propionate 50 2 spray intranasal QAM #15 grams 08/12/22 12/02/23 Rx mcg/actuation nasal spray,suspension folic acid 1 mg tablet 1 mg PO DAILY #30 tabs 08/12/22 12/02/23 Rx gabapentin 300 mg capsule 600 mg PO TID #540 caps 03/31/23 12/02/23 Rx (Neurontin) albuterol sulfate 90 mcg/actuation 2 inh inhalation .COMPLEX PRN 06/30/23 12/02/23 Rx aerosol inhaler shortness of breath or wheezing #8.5 grams duloxetine 60 mg capsule,delayed 60 mg PO DAILY #90 caps 08/01/23 12/02/23 Rx release umeclidinium 62.5 mcg-vilanterol See Rx Instructions .Route 08/03/23 12/02/23 Rx 25 mcg/actuation powdr for .COMPLEX #60 ea inhalation (Anoro Ellipta) buspirone 10 mg tablet 10 mg PO Q12HR #180 tabs 09/20/23 12/02/23 Rx atorvastatin 10 mg tablet 10 mg PO DAILY #90 tabs 11/25/23 12/02/23 Rx aspirin 81 mg tablet,delayed 81 mg PO DAILY 12/02/23 12/02/23 History release (Adult Low Dose Aspirin) cholecalciferol (vitamin D3) 25 25 mcg PO DAILY 12/02/23 12/02/23 History mcg (1,000 unit) tablet cyanocobalamin (vitamin B-12) 1,000 mcg PO DAILY 12/02/23 12/02/23 History 1,000 mcg tablet silver sulfadiazine 1 % topical 1 applic topical PRN PRN SORES ON 12/02/23 12/02/23 History cream (Silvadene) LEGS Patient hx anesthesia problems: none Family hx anesthesia problems: none Results Review: All pre-operative results and documents have been reviewed as part of the pre-operative evaluation. [facility] Past Medical History Medical History Alcohol dependence Alcoholic cirrhosis Chronic obstructive pulmonary disease, unspecified COPD (chronic obstructive pulmonary disease) Depression with anxiety Diabetes mellitus Diabetes mellitus type 2 in obese Gout Hepatitis A Injury of left shoulder Nicotine dependence Onychomycosis Peripheral neuropathy Peripheral neuropathy Peripheral vascular disease Portal venous hypertension Pure hypercholesterolemia Rotator cuff dysfunction Shoulder injury Stasis dermatitis of both legs Thrombocytopenia Type 2 diabetes mellitus without complication, without long-term current use of insulin Diagnosed in 2018 last hemoglobin A1c 5.07 October 2021 Xerosis cutis Surgical History Surgical History History of colonoscopy with polypectomy (03/2018) History of cystoscopy S/P TURP (status post transurethral resection of prostate) Family History Family History Mother Carcinoma of colon, Onset Age: 77 Father Diabetes mellitus Sibling Diabetes mellitus Social History Social History Social History: Code status: Full code Surrogate decision maker: Smoking packs per day: 3 Smoking cigarettes per day: 60.0 Years smoked: 50 Smoking pack-years: 150.00 Smoking status: Former smoker Tobacco type: cigarettes Second hand tobacco smoke exposure: No Smoking end date: 08/29/23 Additional smokin
--- NOTE | 2023-12-08 10:39 | WPDHPUPDATE1 ---
History and Physical Update Update Date/Time: 12/08/23 10:39 History and Physical has been reviewed, including an updated exam of the patient. There are NO changes in the patient's condition. Risks, benefits, and alternatives have been discussed and questions answered. Patient agrees to proceed with procedure.
[2023-12-08] MEDS: ceFAZolin 2 GM/D5W 50 ML 2 GM/50 ML BAG IVPB (10:44)
[2023-12-08] MEDS: BUPIVACAINE/EPINEPHRINE 0.5% 30 ML VIAL INFILTRATE (11:20)
[2023-12-08] MEDS: EPINEPHrine HCL INJ 1 MG/ML AMPUL 3 MG IRRIGATION (11:22)
[2023-12-08] MEDS: fentaNYL CITRATE INJ (*CRX) 100 MCG/2 ML VIAL 25 MCG IV PUSH ×4 (13:27→13:54)
[2023-12-08] MEDS: oxyCODONE HCL (*CRX) 5 MG TAB IR PO (14:21)
--- NOTE | 2023-12-08 15:01 | P.OP_ITS ---
Procedure Note - Detailed Date of Procedure 12/09/23 Pre-op Diagnosis Complete Lt Rot Cuff Tear Post-op Diagnosis Other (1. Rotator cuff tear 2. Subacromial impingement 3. Biceps tendinosis 4. Degenerative labral tear) Procedure Performed Left shoulder 1. Arthroscopic rotator cuff repair 2. Arthroscopic subacromial decompression 3. Arthroscopic biceps tenotomy Surgeon Saeid Bradford MD [employer] Dorota Griffiths PA-C Anesthesia General and Regional ( interscalene block) Findings Massive rotator cuff tear. Moderate retraction of the supraspinatus which was repairable without undue tension. The posterior infraspinatus was atrophied and there was significant retraction. Margin convergence was used at this portion of the posterior aspect of the tear. Several mattress sutures and luggage tag sutures were used to reapproximate the posterior cuff into a lateral SwiveLock anchor. Bone quality was very poor in general. There was no arthritis. Modest acromioplasty without CA ligament release was performed to prevent the development anterior escape. Description of Procedure Preoperative antibiotics were given. An interscalene block was administered in the preoperative area. The patient was bought brought to the operating room. A general anesthetic was administered. The patient was carefully positioned in the beach chair position. The head and neck were carefully positioned. The non operative extremity was also carefully positioned. The shoulder was prepped and draped in the usual sterile fashion. Examination was performed. Standard posterior and anterior arthroscopic portals were established. Inflow achieved with the arthroscopic pump using saline and epinephrine. The glenohumeral joint was carefully inspected. The articular cartilage was healthy. The biceps did have tendinosis with frayed tissue. The rotator cuff was observed to be massively torn and retracted. Attention was turned to the subacromial space. A complete bursectomy was performed. The rotator cuff and footprint were lightly debrided. A modest acromioplasty was performed. The tear configuration was carefully assessed. The anterior portion of the tear was fairly mobile and moderately retracted. Posterior cuff however was more involved than was appreciated on the MRI. The infraspinatus was quite atrophied and delaminated. Retraction was significant and much of the posterior tissue was in fact bursa. At this point, 2 tunnels were created at the rotator cuff. The ArthroTunneler technique was utilized. Three sutures were passed through each tunnel. All sutures were then passed through the cuff tissue. The sutures were tied arthroscopically. More posterior bone was very soft and was not capable of holding an anchor or a bone tunnel. Two horizontal mattress sutures were placed through the tissue and then secured to a SwiveLock anchor laterally. Supplemental mattress sutures from the more anterior cuff were also incorporated. The arthroscopic instruments were removed. The wounds were closed with 3-0 Monocryl subcuticular suture and steri strips. There were no complications. A sling was applied and the patient brought to the recovery room. Physician assistant infant toddler teacher, Dorota Griffiths PA-C, required for surgery; including patient positioning, draping, arthroscopic camera operation, maintaining instrument position, suture retrieval, wound closure, and dressing and sling placement. Implants 5.5 mm SwiveLock anchor Arthrex. Estimated Blood Loss 20 Pathology None sent Complications No immediate complications Condition Stable Disposition PACU [facility] Billing Surgery - Charge Forward: Surgery Billing
== END 2023-12-08 15:30 | disposition home or self-care (01) ==
PROVIDERS: PCP Family Medicine; Visit Provider Orthopaedic Surgery
PROC: (CPT 29805; principal; 2023-12-08 10:30)
DX: M75.122 Complete rotator cuff tear or rupture of left shoulder, not specified as traumatic (principal); I10 Essential (primary) hypertension; J44.9 Chronic obstructive pulmonary disease, unspecified; F41.8 Other specified anxiety disorders; E11.9 Type 2 diabetes mellitus without complications; K70.30 Alcoholic cirrhosis of liver without ascites; F17.210 Nicotine dependence, cigarettes, uncomplicated; Z79.51 Long term (current) use of inhaled steroids; Z79.82 Long term (current) use of aspirin; Z98.890 Other specified postprocedural states; Z80.0 Family history of malignant neoplasm of digestive organs
CPT/HCPCS: 29827; 29826; 29828; 36415; 80048; 85610; 85730; A4565; A9270; C1713; J0171; J0330; J0690; J1100; J1885; J2250; J2405; J2704; J3010; J7120

== ENCOUNTER 2024-01-11 14:33 | Outpatient (CLI) | payer MEDICARE, SELFPAY ==
[2024-01-11 19:40] LABS: Influenza A QL RT-PCR Negative (Negative); Influenza B QL RT-PCR Negative (Negative); RSV RNA, RT-PCR Negative (Negative); SARS-CoV-2 RNA PCR Negative (Negative)
== END 2024-01-11 14:34 | disposition home or self-care (01) ==
LOC: ANHGOSHLAB 14:34
PROVIDERS: PCP Family Medicine; Visit Provider Emergency Medicine
DX: J44.1 Chronic obstructive pulmonary disease with (acute) exacerbation (principal); Z20.822 Contact with and (suspected) exposure to COVID-19
CPT/HCPCS: 87637

== ENCOUNTER 2024-01-11 14:45 | Outpatient (CLI) | payer MEDICARE, SELFPAY ==
--- NOTE | ~2024-01-11 | XR_ITS ---
EXAMINATION: XR chest 2V DATE: 01/11/2024 15:24 INDICATION: Chronic obstructive pulmonary disease. TECHNIQUE: Frontal and lateral views of the chest were obtained on 3 radiographs. COMPARISON: Chest 2 views 07/16/2022, chest CT 03/25/2021 FINDINGS: There are lucencies in the lungs, consistent with emphysema. There is scarring at the lung apices, right worse than left. No pleural effusion or pneumothorax. The heart size is normal. IMPRESSION: 1. Emphysema. 2. Stable scarring at the lung apices, right worse than left. Reviewed, dictated and finalized at location E.
== END 2024-01-11 14:46 ==
PROVIDERS: PCP Family Medicine; Visit Provider Emergency Medicine
DX: J44.1 Chronic obstructive pulmonary disease with (acute) exacerbation (principal); J43.9 Emphysema, unspecified
CPT/HCPCS: 71046

== ENCOUNTER 2024-01-15 17:45 | Inpatient (IN) | payer MEDICARE, SELFPAY ==
[2024-01-15] VITALS (36 sets, daily range): BP systolic 59–139; BP diastolic 40–99; PULSE 68–150; RESP 13–33; TEMP 35.9–37.4; O2SAT 90–100
--- NOTE | ~2024-01-15 | MR_ITS ---
EXAMINATION: MR brain/brain stem wo/w con DATE: 01/25/2024 17:02 INDICATION: Seizure-like activity. TECHNIQUE: Magnetic resonance imaging (MRI) of the brain and brainstem was performed without and with 17 mL MultiHance intravenous contrast. COMPARISON: Head CT 01/16/2024 FINDINGS: There are scattered areas of nonspecific increased T2-weighted signal intensity in the cere bral white matter and mumtaz. There is no intracranial hemorrhage, acute infarction, or abnormal intrac ranial mass lesion. The ventricles are normal in size. The orbits are normal. There is mild mucosal t hickening in the paranasal sinuses. There is small bilateral mastoid effusions. IMPRESSION: 1. Moderate nonspecific cerebral white matter disease and pontine disease, which likely represents ch ronic small vessel ischemic disease. Reviewed, dictated and finalized at location A. IMPRESSION: 1. Moderate nonspecific cerebral white matter disease and pontine disease, whic h likely represents chronic small vessel ischemic disease.
--- NOTE | ~2024-01-15 | CT_ITS ---
CT head without contrast Indication: Altered mental status COMPARISON: 07/16/2022 Technique: Serial scans were obtained through the brain without the administration of contrast. Dose reduction technique was used on this scan by utilizing automated exposure control and iterative recon struction technique. The dose-length product (DLP) was 681.00 mGy-cm. Findings: There is no evidence of intracranial hemorrhage, mass lesion, or acute infarct. The ventri cles and subarachnoid spaces are dilated, consistent with mild to moderate atrophy. Low attenuation regions are seen within the periventricular white matter bilaterally, likely representing changes fro m chronic microvascular ischemic disease. There is no evidence of edema, mass effect or midline shif t. The visualized paranasal sinuses and mastoid air cells are clear. Impression: No intracranial hemorrhage, mass, or acute infarct. Atrophy and chronic white matter changes, as above. Reviewed, dictated and finalized at location . Impression: No intracranial hemorrhage, mass, or acute infarct. Atrophy and chronic white matter changes, as above.
--- NOTE | ~2024-01-15 | XR_ITS ---
EXAMINATION: XR chest 1V portable DATE: 01/21/2024 05:22 INDICATION: Respiratory failure. TECHNIQUE: A single frontal view of the chest was obtained. COMPARISON: Chest single view 01/20/2024, CT abdomen and pelvis 01/15/2024, chest CT from 03/25/2021 FINDINGS: There is scarring at the lung apices, right worse than left. There are lucencies in the aissatou gs, consistent with emphysema. No pleural effusion or pneumothorax. The heart size is normal. The end otracheal tube tip is 3.9 cm above the anderson. The nasogastric tube tip is in the stomach. A right in ternal jugular central venous catheter is seen with tip at the superior cavoatrial junction. IMPRESSION: 1. Emphysema. 2. Chronic scarring at the lung apices. Reviewed, dictated and finalized at location A.
--- NOTE | ~2024-01-15 | XR_ITS ---
EXAMINATION: XR barium swallow modified DATE: 01/30/2024 09:46 INDICATION: Weakness choking episode. TECHNIQUE: The patient was given barium-containing material of multiple consistencies to swallow by t lake speech pathologist while I performed fluoroscopy. Fluoroscopy exposure time was 2.0 minutes. The n umber of fluoroscopy images saved to the PACS was 1. Dose-area product was 1.326 Gy-cm^2. FINDINGS: There is reduced laryngeal elevation, reduced tongue base retraction, and vallecular residue. There i s laryngeal penetration of thin liquids and nectar thick liquids. There is aspiration of thin liquids . IMPRESSION: 1. Aspiration of thin liquids. 2. Please refer to the speech therapy report for recommendations. Reviewed, dictated and finalized at location A.
--- NOTE | ~2024-01-15 | XR_ITS ---
EXAMINATION: XR abdomen gastric tube insert DATE: 01/18/2024 16:17 INDICATION: Orogastric tube placement. TECHNIQUE: A supine view of the abdomen was obtained. COMPARISON: CT abdomen and pelvis 01/15/24 FINDINGS: There are no dilated loops of bowel. The orogastric tube tip is in the stomach. There is a catheter tip at superior cavoatrial junction. IMPRESSION: 1. Orogastric tube tip in the stomach. Reviewed, dictated and finalized at location A.
--- NOTE | ~2024-01-15 | CT_ITS ---
EXAMINATION: CT cervical spine wo con DATE: 02/02/2024 15:40 INDICATION: Fall. TECHNIQUE: Computed tomography (CT) of the cervical spine was performed without intravenous contrast. Automated exposure control and iterative reconstruction technique were employed. The dose-length pro duct was 489.07 mGy-cm. COMPARISON: CT cervical spine 07/16/2022 FINDINGS: Emphysema is noted. There is scarring at the lung apices. Bone alignment is normal. Vertebr al body heights are normal. There is moderately decreased disc height at C2-C3 and severely decreased disc height from C3-C4 through C6-C7. The following disc levels are specifically discussed: C2-C3: There is mild bilateral uncovertebral joint osteoarthritis. There is moderate right and severe left facet joint osteoarthritis. There is no neural foraminal stenosis. There is no central canal st enosis. C3-C4: There is moderate bilateral uncovertebral joint osteoarthritis. There is severe bilateral face t joint osteoarthritis. There is mild left neural foraminal stenosis. There is mild central canal enriqueta nosis. C4-C5: There is severe bilateral uncovertebral joint osteoarthritis. There is severe right and mild l eft facet joint osteoarthritis. There is mild left neural foraminal stenosis. There is mild central c anal stenosis. C5-C6: There is severe bilateral uncovertebral joint osteoarthritis. There is mild lateral facet join t osteoarthritis. There is mild bilateral neural foraminal stenosis. There is mild central canal sten osis. C6-C7: There is severe bilateral uncovertebral joint osteoarthritis. There is mild right and severe l eft facet joint osteoarthritis. There is mild left neural foraminal stenosis. There is mild central c anal stenosis. C7-T1: There is no uncovertebral joint osteoarthritis. There is severe bilateral facet joint osteoart hritis. There is mild bilateral neural foraminal stenosis. There is no central canal stenosis. IMPRESSION: 1. No fracture. 2. Severe cervical spondylosis. Reviewed, dictated and finalized at location A.
--- NOTE | ~2024-01-15 | XR_ITS ---
XR abdomen gastric tube insert INDICATION: Evaluate NG tube position. TECHNIQUE: Limited KUB perform for evaluating NG tube . COMPARISON: NG tube placement FINDINGS: NG tube tip in the stomach. Visualized bowel gas pattern is unremarkable. IMPRESSION: 1: NG tube tip in the stomach. Reviewed, dictated and finalized at location A.
--- NOTE | ~2024-01-15 | XR_ITS ---
EXAMINATION: XR chest 1V portable DATE: 01/22/2024 09:15 INDICATION: Endotracheal tube adjustment. TECHNIQUE: A single frontal view of the chest was obtained on 2 radiographs. COMPARISON: Chest single view at 5:03 AM FINDINGS: There is chronic scarring at the lung apices. There are lucencies in the lungs, consistent with emphysema. No pleural effusion or pneumothorax. The heart size is normal. The endotracheal tube tip is 6.2 cm above the anderson. A right internal jugular central venous catheter is seen with tip at the superior cavoatrial junction. The nasogastric tube tip is beyond the inferior margin of the radio graph, but at least to the stomach. There are old healed bilateral rib fractures. IMPRESSION: 1. Emphysema. 2. Chronic scarring at the lung apices. Reviewed, dictated and finalized at location E.
--- NOTE | ~2024-01-15 | CT_ITS ---
EXAMINATION: CT brain wo con DATE: 01/24/2024 21:07 INDICATION: gaze averted upward . TECHNIQUE: Computed tomography (CT) of the head was performed without intravenous contrast. The mA wa s adjusted according to patient size. Iterative reconstruction technique was employed. The dose-lengt h product was 681.00 mGy-cm. COMPARISON: 01/16/2024. FINDINGS: No acute intracranial hemorrhage or extra-axial fluid collection. No hydrocephalus, mass, or herniation. No acute ischemic infarct. Unremarkable dural venous sinus attenuation. No acute osseous abnormality. The aerated spaces are clear. Mild atrophy and chronic white matter change. Atherosclerotic intracranial calcification. Bilateral l ens replacements. IMPRESSION: No acute intracranial process. Reviewed, dictated and finalized at location K.
--- NOTE | ~2024-01-15 | CT_ITS ---
EXAMINATION: CT chest abdomen pelvis wo con DATE: 01/30/2024 15:56 INDICATION: cough, hematoma follow up. drop in h and h . TECHNIQUE: Computed tomography (CT) of the chest, abdomen, and pelvis was performed with intravenous contrast. Automated exposure control and iterative reconstruction technique were employed. The dose-l ength product was 1285.90 mGy-cm. COMPARISON: CT abdomen pelvis 01/15/2024 and 10/26/2023; CTPA 03/17/2021. FINDINGS: CHEST: Thoracic aorta: No significant dilation. No dissection. Mild arch calcification. Lung parenchyma and airways: Minimal tracheal and right bronchial airway debris. Emphysematous change. Reticular and cons olidative opacities in the left dependent lung. Bibasilar scar/atelectasis. 9 mm right lower lobe pul monary nodule with multiple additional smaller areas of nodularity/nodular consolidation. Biapical sc arring, greater on the right Thoracic inlet, axillae and chest wall: Symmetric gynecomastia. No thyroid mass. No axillary lymphade nopathy. Mediastinum: No mass or lymphadenopathy. Heart and pericardium: Normal heart size. No pericardial effusion. Aortic valve calcification. Coronary artery calcifications: Mild. Pleura: Small volume bilateral pleural fluid collections. Thoracic bones: No acute osseous finding in the chest. Old rib and sternal fractures. ABDOMEN/PELVIS: Liver: Nodular liver border. Biliary/Gallbladder: Gallbladder is normal. No bile duct dilation. Pancreas: Moderate atrophy. Spleen: Enlarged. Granulomatous calcifications. Adrenals:No mass. Kidneys: No suspicious mass, obstructing stone, or hydronephrosis. GI tract: No small or large bowel dilation. Normal appendix. Diverticulosis without diverticulitis. Mesentery/Peritoneum: No ascites, mass, or free air. Retroperitoneum: No mass Atherosclerotic abdominal aortic and/or arterial calcifications. Pelvis: Urinary bladder decompressed by Wooten catheter, with wall thickening and mild surrounding inf lammatory change. Presacral edema. Soft Tissues: Left rectus hematoma measuring 4.4 cm AP x 7.6 cm transverse x 10 cm craniocaudad. Abdominopelvic bones: No acute osseous finding in the abdomen/pelvis. Stable mild T12 and L2 mookie raymond deformities. IMPRESSION: Bibasilar pulmonary opacities, may represent infection in the appropriate clinical context. Aspiratio n should also be considered given the presence of airway debris. Recommend CT chest follow-up to asse ss for resolution and exclude persistent nodules. Small bilateral pleural effusions. Cirrhosis. Splenomegaly. Possible cystitis, correlate with urinalysis. Left rectus hematoma, grossly unchanged in size. Reviewed, dictated and finalized at location K. IMPRESSION: Bibasilar pulmonary opacities, may represent infection in the appropriate clini ashish context. Aspiration should also be considered given the presence of airway debris. Recommend CT chest follow-up to assess for resolution and exclude persi stent nodules. Small bilateral pleural effusions. Cirrhosis. Splenomegaly. Possible cystitis, correlate with urinalysis. Left rectus hematoma, grossly unchanged in size.
--- NOTE | ~2024-01-15 | XR_ITS ---
Upright portable view of the abdomen Clinical history: NG tube placement Findings: NG tube in place, with side-port at the GE junction region. Bowel gas pattern is nonspecifi c. No evidence for obstruction or free air. No abnormal mass lesion or calcification is seen. Osseous structures are intact. Impression: NG tube side-port is at the GE junction. Further advancement to ensure adequate placement in the stom ach is recommended. Reviewed, dictated and finalized at location . Impression: NG tube side-port is at the GE junction. Further advancement to ensure adequate placement in the stomach is recommended.
--- NOTE | ~2024-01-15 | XR_ITS ---
Portable chest x-ray Comparison: 01/15/2024 at 10:35 PM Clinical History: Line placement Findings: Endotracheal tube, NG tube, and right IJ line are in place. Lungs remain clear. No consoli dation, effusion, or pneumothorax. Cardiomediastinal silhouette is stable. Bones and soft tissues ar e unremarkable. Impression: Support tubes, as above. Clear lungs. Reviewed, dictated and finalized at location M. Impression: Support tubes, as above. Clear lungs.
--- NOTE | ~2024-01-15 | XR_ITS ---
EXAMINATION: XR chest 1V portable Exam Date/Time: 01/27/2024 19:00 CDT HISTORY: congestion Comparison: 01/22/2024. RESULT: Lines, tubes, and devices: Interval endotracheal tube, NG tube, and central venous line removal. Lungs and pleura: Senescent/emphysematous change. Cardiomediastinal silhouette: Stable. Other: No acute osseous or upper abdominal finding. IMPRESSION: No acute cardiopulmonary process. Reviewed, dictated and finalized at location K.
--- NOTE | ~2024-01-15 | XR_ITS ---
Portable chest x-ray Comparison: 01/18/2024 Clinical History: Respiratory failure Findings: Endotracheal tube, NG tube, and right IJ line are in place. NG tube side-port is just at t he GE junction, and further advancement into the stomach should be considered. Suspected COPD pattern of the lungs. No consolidation, effusion, or pneumothorax. Cardiomediastinal silhouette is stable. Bones and soft tissues are unremarkable. Impression: Support tubes, as above. Consider further advancement of NG tube. Suspected COPD. Reviewed, dictated and finalized at location . Impression: Support tubes, as above. Consider further advancement of NG tube. Suspected COPD.
--- NOTE | ~2024-01-15 | XR_ITS ---
XR abdomen gastric tube rechec INDICATION: Evaluate NG position. TECHNIQUE: Limited KUB perform for evaluating NG tube . COMPARISON: 01/22/2024 FINDINGS: NG tube tip in the stomach. Visualized bowel gas pattern is nonspecific.Central line tip i n the SVC. IMPRESSION: 1: NG tube tip in the stomach. Reviewed, dictated and finalized at location A.
--- NOTE | ~2024-01-15 | XR_ITS ---
Portable chest x-ray Comparison: 01/19/2024 Clinical History: ET tube placement Findings: Endotracheal tube, NG tube, and right IJ line are in satisfactory positions. There is mild bibasilar interstitial prominence. Cardiomediastinal silhouette is stable. Bones and soft tissues a re unremarkable. Impression: Support tubes, as above. Bibasilar interstitial prominence. Correlate for chronic interstitial disease, mild interstitial stephany a, or COPD. Reviewed, dictated and finalized at location . Impression: Support tubes, as above. Bibasilar interstitial prominence. Correlate for chronic interstitial disease, mild interstitial edema, or COPD.
--- NOTE | ~2024-01-15 | XR_ITS ---
XR chest 1V portable 01/29/2024 11:10 Indication: Cough Procedure: AP portable chest Comparison: Comparison to multiple prior studies sequentially, with oldest reviewed study dated 01/20. Findings: There is bilateral airspace disease predominantly affecting the lung bases. No significant effusion. No pneumothorax. No acute osseous abnormality. Heart size normal. Impression: 1: Bilateral airspace disease may represent pneumonia or edema. Clinically correlate. Reviewed, dictated and finalized at location B. Impression: 1: Bilateral airspace disease may represent pneumonia or edema. Clinically rustam elate.
--- NOTE | ~2024-01-15 | XR_ITS ---
EXAMINATION: XR abdomen gastric tube rechec DATE: 01/22/2024 09:15 INDICATION: Orogastric tube placement. TECHNIQUE: A supine view of the abdomen was obtained. COMPARISON: CT abdomen pelvis 01/15/24 FINDINGS: The lower abdomen is excluded. There are no dilated loops of bowel. The orogastric tube tip is in the stomach. IMPRESSION: 1. Orogastric tube tip in the stomach. Reviewed, dictated and finalized at location E.
--- NOTE | ~2024-01-15 | CT_ITS ---
EXAMINATION: CT brain wo con DATE: 02/02/2024 15:40 INDICATION: Fall. TECHNIQUE: Computed tomography (CT) of the head was performed without intravenous contrast. The mA wa s adjusted according to patient size. Iterative reconstruction technique was employed. The dose-lengt h product was 605.33 mGy-cm. COMPARISON: Head CT 01/16/2024 FINDINGS: There is no intracranial hemorrhage, acute infarction, or abnormal intracranial mass lesion . There are scattered areas of low attenuation in the cerebral white matter. The ventricles are dion l in size. The paranasal sinuses are clear. The orbits are normal. The mastoid air cells are normal. IMPRESSION: 1. Stable moderate nonspecific cerebral white matter disease, which likely represents chronic small v essel ischemic disease. Reviewed, dictated and finalized at location A. IMPRESSION: 1. Stable moderate nonspecific cerebral white matter disease, which likely repr esents chronic small vessel ischemic disease.
--- NOTE | ~2024-01-15 | XR_ITS ---
EXAMINATION: XR chest 1V portable DATE: 01/22/2024 05:15 INDICATION: Respiratory failure. TECHNIQUE: A single frontal view of the chest was obtained. COMPARISON: Chest single view 01/21/24 FINDINGS: There is mild scarring at the lung apices. There are lucencies in the lungs, consistent wit h emphysema. No pleural effusion or pneumothorax. The heart size is normal. The endotracheal tube tip is 10 mm above the anderson. A right internal jugular central venous catheter is seen with tip at the superior cavoatrial junction. The nasogastric tube tip is beyond the inferior margin of the radiograp h, but at least to the stomach. IMPRESSION: 1. Emphysema. 2. Chronic scarring at the lung apices. Reviewed, dictated and finalized at location E.
--- NOTE | ~2024-01-15 | XR_ITS ---
Portable chest x-ray Comparison: 01/15/2024 at 8:01 PM Clinical History: Tube placement Findings: Endotracheal tube in satisfactory position. NG tube side-port is probably at the GE juncti on. Lungs are clear, without focal consolidation or pleural effusion. Cardiomediastinal silhouette i s stable. Bones and soft tissues are unremarkable. Impression: ET tube in satisfactory position. NG tube side-port is probably the GE junction. Further advancement into the stomach advised. Clear lungs. Reviewed, dictated and finalized at location M. Impression: ET tube in satisfactory position. NG tube side-port is probably the GE junction. Further advancement into the sto mach advised. Clear lungs.
--- NOTE | ~2024-01-15 | CT_ITS ---
EXAMINATION: CT abdomen pelvis w con DATE: 01/15/2024 21:11 INDICATION: lower abd pain TECHNIQUE: Computed tomography (CT) of the abdomen and pelvis was performed with 100 mL Omnipaque-350 intravenous contrast. Automated exposure control and iterative reconstruction technique were employe d. The dose-length product was 877.32 mGy-cm. COMPARISON: 10/26/2023. FINDINGS: Lower thorax: Minimal bibasilar scar. Emphysematous change. Liver: Nodular liver border. Biliary/Gallbladder: Gallbladder is normal. No bile duct dilation. Pancreas: Moderate atrophy. Spleen: Normal. Adrenals:No mass. Kidneys: No suspicious mass, obstructing stone, or hydronephrosis. GI tract: No small or large bowel dilation. Normal appendix. Diverticulosis without diverticulitis. Mesentery/Peritoneum: No ascites, mass, or free air. Retroperitoneum: No mass. Atherosclerotic abdominal aortic and/or arterial calcifications. Pelvis: Markedly distended urinary bladder. Prostatic calcifications. Soft Tissues: Marked thickening and stranding associated with the left inferior rectus muscle with a intramuscular 3.3 x 7.5 x 10.2 cm hyperdensity, likely representing clot. Bones: No acute osseous finding. IMPRESSION: Cirrhosis. Marked urinary bladder distention, correlate for symptoms of urinary retention. 10.2 cm left inferior rectus intramuscular hematoma. No active extravasation. Reviewed, dictated and finalized at location K.
--- NOTE | ~2024-01-15 | XR_ITS ---
EXAMINATION: XR chest 1V portable Exam Date/Time: 01/15/2024 19:55 CDT HISTORY: weakness Comparison: 01/11/2024. RESULT: Lines, tubes, and devices: None. Lungs and pleura: Biapical pleural scarring. Emphysematous change. Otherwise clear. Cardiomediastinal silhouette: Stable. Other: No acute osseous or upper abdominal finding. IMPRESSION: No acute cardiopulmonary process. Reviewed, dictated and finalized at location K.
--- NOTE | ~2024-01-15 | XR_ITS ---
EXAMINATION: XR hip BI 2V w AP pelvis DATE: 02/02/2024 15:48 INDICATION: Fall. Pelvic pain. TECHNIQUE: An anteroposterior view the pelvis and 2 views of each hip were obtained. COMPARISON: CT 01/30/2024 FINDINGS: Bone alignment is normal. There is severe lower lumbar spondylosis. No fracture. There is m oderate osteoarthritis of the hips. IMPRESSION: 1. Moderate osteoarthritis of the hips. Reviewed, dictated and finalized at location A.
--- NOTE | ~2024-01-15 | XR_ITS ---
Portable chest x-ray Comparison: 01/16/2024 Clinical History: Respiratory failure Findings: Endotracheal tube, NG tube, and right IJ line are in place. Questionable minimal interstit ial prominence in the lungs. No consolidation, effusion, or pneumothorax. Cardiomediastinal silhouet te is stable. Bones and soft tissues are unremarkable. Impression: Support tubes, as above. Possible minimal interstitial prominence, nonspecific. Reviewed, dictated and finalized at location M. Impression: Support tubes, as above. Possible minimal interstitial prominence, nonspecific.
--- NOTE | 2024-01-15 18:42 | ECG_ITS ---
SEE SCANNED COPY FOR CONFIRMED REPORT. MTDD
[2024-01-15 19:06] LABS: Basophils Percent Auto 0.1 % (0.2-1.2); Hematocrit 34.5 % (42.0-52.0); Hemoglobin 12.9 g/dL (14.0-18.0); Immature Granulocyte Absolute 0.19 K/mm3 (0.00-0.031); Immature Granulocyte Percent A 1.4 % (0-0.5); Lymphocytes Absolute Auto 0.96 K/mm3 (0.9-3.2); Lymphocytes Percent Auto 7.2 % (18.3-44.2); Mean Corpuscular HGB Conc 37.4 g/dl (32-36); Mean Corpuscular Hemoglobin 34.2 pg (26-34); Mean Corpuscular Volume 91.5 fl (80-100); Mean Platelet Volume 8.7 fl (7.4-10.4); Monocytes Absolute Auto 0.6 K/mm3 (0.1-0.6); Monocytes Percent Auto 4.5 % (2.6-8.5); Neutrophils Absolute Auto 11.6 K/mm3 (1.3-6.7); Neutrophils Percent Auto 86.8 % (45.5-73.1); Platelet Count Result 237 k/mm3 (150-375); Red Blood Count 3.77 M/mm3 (4.6-6.20); Red Cell Distribution Width 13.2 % (11.5-14.5); White Blood Count 13.3 K/mm3 (4.5-10.0)
[2024-01-15 19:26] LABS: Alanine Aminotransferase 40 U/L (6-50); Albumin Level 4.3 g/dL (3.5-5.1); Alkaline Phosphatase 98 U/L (38-126); Anion Gap 15 mmol/L (4-12); Aspartate Amino Transferase 104 U/L (17-59); Bilirubin,Total 0.8 mg/dL (0.2-1.3); Blood Urea Nitrogen 23 mg/dL (9-20); Calcium 9.1 mg/dL (8.4-10.2); Carbon Dioxide 20 mmol/L (22-30); Chloride 83 mmol/L (98-107); Estimated CRCL calculation 49 ml/min; Estimated Glomerular Filt Rate 51; Glucose 118 mg/dL (65-110); Potassium 4.7 mmol/L (3.4-5.0); Sodium 118 mmol/L (137-145)
[2024-01-15 19:35] LABS: Magnesium 1.3 mg/dL (1.6-2.3)
--- NOTE | 2024-01-15 19:38 | ED.GENADULT ---
HPI - General Adult General Chief complaint: Weakness Stated complaint: weakness Time Seen by Provider: 01/15/24 19:07 History of Present Illness HPI narrative: Patient is a 68-year-old male who presents emergency department this evening due to generalized weakness, feeling generally unwell and having some shortness of breath. Patient admits that he does have a history of COPD due to an extensive smoking history. Family members present at bedside also admit that the patient does drink beer daily, although patient has not been drinking the past week due to his weakness. sister states that she is the 1 who pushed him to come to the emergency department today for further evaluation. She states that he has been having difficulty getting out of bed to go to the bathroom due to his weakness. This has caused him to wear depends which sister states that this is something that she never thought he would ever agree to doing. Patient does have a history of tremors which is usually localized to his bilateral upper extremity, however, sister states that more recently they have noticed it on his bilateral lower lower extremity as well. Patient is currently complaining of lower abdominal pain, otherwise he is denying any additional symptoms other than feeling weak, denies any chest pain or shortness of breath, any nausea or vomiting, fevers or chills. Related Data Home Medications Medication Instructions Recorded Confirmed multivitamin 1 tablet PO DAILY 03/25/21 01/16/24 aspirin 81 mg tablet,delayed 81 mg PO DAILY 12/02/23 01/16/24 release (Adult Low Dose Aspirin) cholecalciferol (vitamin D3) 25 25 mcg PO DAILY 12/02/23 01/16/24 mcg (1,000 unit) tablet gabapentin 600 mg tablet 600 mg PO TID 01/11/24 01/16/24 allopurinol 300 mg tablet 300 mg PO DAILY 01/16/24 01/16/24 calcium carbonate 500 mg PO DAILY 01/16/24 01/16/24 diphenhydramine 25 2 tablet PO HS 01/16/24 01/16/24 mg-acetaminophen 500 mg tablet (Pain Relief PM) Allergies Allergy/AdvReac Type Severity Reaction Status Date / Time No Known Allergies Allergy Verified 01/16/24 03:42 Review of Systems Review of Systems: All systems are reviewed and are negative unless stated otherwise in the HPI. [facility] Past Medical History Medical History (Updated 01/16/24 @ 18:57 by Daisy Butterfield MD) Alcohol dependence Alcohol withdrawal seizure Alcoholic cirrhosis Chronic obstructive pulmonary disease, unspecified Cirrhosis of liver COPD (chronic obstructive pulmonary disease) Depression with anxiety Diabetes mellitus Diabetes mellitus type 2 in obese Gout Hepatitis A Injury of left shoulder Nicotine dependence Onychomycosis Peripheral neuropathy Peripheral neuropathy Peripheral vascular disease Portal venous hypertension Pure hypercholesterolemia Rotator cuff dysfunction Shoulder injury Stasis dermatitis of both legs Thrombocytopenia Type 2 diabetes mellitus without complication, without long-term current use of insulin Diagnosed in 2018 last hemoglobin A1c 5.07 October 2021 Xerosis cutis Surgical History Surgical History History of colonoscopy with polypectomy (03/2018) History of cystoscopy S/P TURP (status post transurethral resection of prostate) Family History Family History Mother Carcinoma of colon, Onset Age: 77 Father Diabetes mellitus Sibling Diabetes mellitus Social History Social History Social History: Code status: Full code Surrogate decision maker: Smoking packs per day: 3 Smoking cigarettes per day: 60.0 Years smoked: 35 Smoking pack-years: 105.00 Smoking status: Former smoker Tobacco type: cigarettes Second hand tobacco smoke exposure: No Smoking end date: 12/28/23 Additional smoking assessment comments: patient stated he smoke
[2024-01-15 19:48] LABS: NT Pro B Type Natriuretic Pept 1990 pg/mL (19.9-100); Troponin I 0.025 ng/mL (0.000-0.034)
[2024-01-15] MEDS: SODIUM CHLORIDE 0.9% IV 1,000 ML 999 ML IV CONT ×3 (19:48→22:59)
[2024-01-15 20:07] LABS: Lactic Acid Reflex 3.5 mmol/L (0.7-2.0)
[2024-01-15] MEDS: MAGNESIUM SULF 1 GM/D5W 100 ML 1 GM/100 ML BAG IVPB (20:08)
[2024-01-15 20:11] LABS: Appearance Urine Clear (Clear); Bacteria Urine None Seen /hpf; Bilirubin Urine Negative (Negative); Blood Urine Negative (Negative); Color Urine Yellow (Yellow); Glucose Urine UA Negative (Negative); Ketones Urine Negative (Negative); Leukocyte Esterase Ur Negative LEU/UL (Negative); Nitrate Urine Negative (Negative); Non Pathogenic Casts 0-2; Protein Urine 1+ mg/dL (Negative); RBC Urine 0-2 /hpf (0-2); Specific Grav Ur 1.011 (1.001-1.035); Squamous Epithelial Cell Urine None Seen /hpf (Few); WBC Urine 0-5 /hpf (0-3); pH Urine 5.5 (5.0-9.0)
[2024-01-15 20:12] LABS: Add Urine Microscopic? YES
--- NOTE | 2024-01-15 20:23 | PC.NURSE ---
Patient's HR elevated to 150s-170s. Notified EDP Dr. Laws who VRBO 2mg Ativan IVP.
[2024-01-15] MEDS: LORazepam INJ (*CRX) 2 MG/ML VIAL IV PUSH ×3 (20:27→23:41)
[2024-01-15] MEDS: SODIUM CHLORIDE 0.9% IV 1,000 ML 100 ML IV CONT (20:27)
[2024-01-15] MEDS: LORazepam INJ (*CRX) 2 MG/ML VIAL 4 MG IV PUSH (21:10)
[2024-01-15 21:41] LABS: Ethanol < 10 mg/dL (<10)
[2024-01-15] MEDS: PROPOFOL IV EMULSION 100 ML 2.25 MG IV CONT (21:48)
--- NOTE | 2024-01-15 21:48 | PC.NURSE ---
at 2111 pt was brought back to room after CT, at this time pt had severe tremors, tactile disturbances, visual disturbances, and snoring respirations. pt was drenched in sweat and agitated. EDP Dr. Laws was called to bedside by this RN. Pt was given 4mg of Ativan and no improvement of tremors was noted. Pt was then given 2 more mg of Ativan. At this time pt continued to have intense tremors, and began having snoring respirations. EDP Dr. Laws made decision to intubate due to increasing secretions and worsening snoring respirations. RT was called to bedside and pt was intubated at 2137. 20mg of Etomidate and 100 mg of Rocuronium was used for sedation during procedure. Pt intubated with 7.5 ETT, tube is 23 at the lip. Positive color change and bilateral breath sounds noted immediately after intubation. Verbal order given from EDP Dr. Bhagat to start Propofol drip at 5mcg/kg/min, drip started by this RN at 2147.
[2024-01-15] MEDS: RAPID SEQUENCE INTUBATION KIT 1 EACH (22:00)
--- NOTE | 2024-01-15 22:13 | PC.NURSE ---
Propofol paused due to pts decreasing BPs. Provider made aware. 1000mL Normal saline Bolus started.
[2024-01-15 22:14] LABS: Alveolar/Arterial O2 Gradient 106.6 mmHg; Base Excess ABG -2.8 mEq/l (+/-2.0); Carboxyhemoglobin 0.3 % THb (0-2.0); Device VENTILATOR; Fractional Inspired Oxygen 95 %; HCO3 ABG 21.6 mEq/l (22.0-26.0); Methemoglobin ABG 0.3 %THb (0-1.5); Oxygen Content ABG 17.7 %vol (16.0-22.0); Oxygen Saturation ABG 99.9 % (95.0-100.0); Oxyhemoglobin 99.3 % THb (90.0-100.0); PCO2 ABG 36.1 mmHg (35.0-45.0); PO2 ABG 534.2 mmHg (80.0-100.0); PO2 FiO2 Ratio Arterial Blood 5.62 %; Reduced Hemoglobin 0.1 %THb (0-5.0); Site Drawn RIGHT BRACHIAL; Total Hemoglobin 11.6 g/dL (12.0-18.0); pH ABG 7.395 (7.350-7.450)
[2024-01-15 22:15] LABS: Arterial Blood Gas PEEP 5 cmH2O; Arterial Blood Gas Tidal Volume 450 ml; Arterial Blood Gas Vent Mode CMV; Arterial Blood Gas Ventilator rate 18 /MIN
[2024-01-15 22:51] LABS: Reflex Lactic Acid Yes or No Add Lactic
--- NOTE | 2024-01-15 23:37 | PM.IMHP ---
H&P: HPI History of Present Illness Date/Time: 01/15/24 23:37 Chief Complaint: 1. Malaise 2. Tremors 3. Fatigue 4. 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 There were no records of fevers, chills, nausea, vomiting, visual disturbances, flank pain, dysuria. There was a recent fall, beleived to be mechanical without LOC or seizure like-activity; shortly afterwards, he began to complain about abdominal discomfort and aches. He does not currently smoke/chew tobacco or consume recreational/illicit drugs; He last drank about a week ago (about 6 beers); his family Hx is not contributory to the PC On arrival in the ED, he was said to have become confused with overwhelming tremors; his confused sate led to him being intubated for probable airway compromise. Work-up findings: WBC 13 Hb 12.9 PLT 237 ABG; Mild acidemia; HCO3 21 LA 3.2 Na 118 K 4.7 Cl 83 BUN 23 Cr 1.4 GFR 51 Mg 1.3 BNP 1990 Troponin 0.025 UA: Unremarkable CTAP: Cirrhosis. Marked urinary bladder distention, correlate for symptoms of urinary retention. 10.2 cm left inferior rectus intramuscular hematoma. No active extravasation. CXR: No acute cardiopulmonary process. Intubated and sedated; he will be admitted, evaluated and managed for probable alcohol withdrawal and physical deconditioning. Review of Systems Review of Systems: ROS unobtainable: Yes unobtainable due to mental status PMFSH Past Medical History Medical History Alcohol dependence Alcoholic cirrhosis Chronic obstructive pulmonary disease, unspecified COPD (chronic obstructive pulmonary disease) Depression with anxiety Diabetes mellitus Diabetes mellitus type 2 in obese Gout Hepatitis A Injury of left shoulder Nicotine dependence Onychomycosis Peripheral neuropathy Peripheral neuropathy Peripheral vascular disease Portal venous hypertension Pure hypercholesterolemia Rotator cuff dysfunction Shoulder injury Stasis dermatitis of both legs Thrombocytopenia Type 2 diabetes mellitus without complication, without long-term current use of insulin Diagnosed in 2019 last hemoglobin A1c 5.07 October 2021 Xerosis cutis Surgical History Surgical History History of colonoscopy with polypectomy (03/2018) History of cystoscopy S/P TURP (status post transurethral resection of prostate) Family History Family History Mother Carcinoma of colon, Onset Age: 77 Father Diabetes mellitus Sibling Diabetes mellitus Social History Social History Social History: Code status: Full code Surrogate decision maker: Smoking packs per day: 3 Smoking cigarettes per day: 60.0 Years smoked: 50 Smoking pack-years: 150.00 Smoking status: Former smoker Tobacco type: cigarettes Second hand tobacco smoke exposure: No Smoking end date: 08/29/23 Additional smoking assessment comments: patient stated he smoked on and off for most of his life. Alcohol intake: former Drinks per week: 12 Alcohol use details: The patient drinks up to a 12 pack of beer per day. Substance use: never Substance use type: does not use Do You Feel Safe in your Home?: Yes Lack of Transportation: No Lack of Food: Never True Current Housing: I Have Housing Concerned About Future Housing: No Difficulty Paying Gas/Electric Bills: No Difficulty Paying for Meds: No Currently Unemployed: No Education: High School Dip
[2024-01-15] MEDS: MIDAZOLAM HCL (*CRX) 2 MG/2 ML VIAL IV PUSH (23:41)
[2024-01-15] MEDS: NOREPINEPHRINE 8 MG/D5W 250 ML 8 MG/250 ML BAG 9.38 MG IV CONT (23:51)
[2024-01-15] MEDS: MIDAZOLAM 100MG/NS 100ML(*CRX) 100 MG/100 ML BAG IV CONT (23:54)
[2024-01-15] MEDS: FENTANYL 2,500MCG/NS250ML(*CRX 2,500 MCG/250 ML BAG IV CONT (23:57)
[2024-01-16] VITALS (68 sets, daily range): BP systolic 80–155; BP diastolic 33–96; PULSE 88–150; RESP 12–29; TEMP 35.7–36.8; O2SAT 93–100; BMI 22.9
--- NOTE | 2024-01-16 | ECHO_ITS ---
Patient Info Name: Francis Montes Age: 68 years : 1955 Gender: Male Ht: 72 in Wt: 173 lbs BSA: 2.00 m2 HR: 96 bpm BP: 129 / 43 mmHg Heart Rhythm: Sinus Rhythm Technical Quality: Fair Exam Date: 01/16/2024 11:21 AM Exam Location: Echo Lab Patient Status: Inpatient Admit Date: 01/15/2024 Staff Ordering Physician: Jaclyn Mascorro MD Auto Transmission Specialist: Lexie Altamirano RDCS Attending Provider: Everton Hernadez MD Referring Physician: Subha BISHOP; Exam Type: CA echo doppler color flow Study Info Indications - chf Complete two-dimensional, color flow and Doppler transthoracic echocardiogram is performed. Summary 1. Complete two-dimensional, color flow and Doppler transthoracic echocardiogram is performed. 2. Technically suboptimal study due to poor sonographic images. 3. Left ventricular chamber dimension is normal. 4. Left ventricular systolic function is normal, estimated at 60-65%. 5. The left ventricular diastolic function is grade I diastolic dysfunction. 6. E/e' 9 is minimally elevated. 7. The aortic valve is not well visualized. Cannot determine number of aortic valve leaflets. 8. There is severe aortic valve sclerosis. 9. There is mild aortic valve stenosis based on valve area of 1.6 cm2, mean gradient 7 mmHg. Left Ventricle E/e' 9 is minimally elevated. Technically suboptimal study due to poor sonographic images. Left ventricular chamber dimension is normal. Left ventricular systolic function is normal, estimated at 60-65%. The left ventricular diastolic function is grade I diastolic dysfunction. Right Ventricle Right ventricular chamber dimension is normal. Right ventricular systolic function is normal. Left Atria Left atrial chamber dimension is normal. Right Atria Right atrial chamber dimension is normal. Aortic Valve The aortic valve is not well visualized. Cannot determine number of aortic valve leaflets. There is mild aortic valve stenosis based on valve area of 1.6 cm2, mean gradient 7 mmHg. There is severe aortic valve sclerosis. There is no aortic valve regurgitation. Pulmonic Valve There is no pulmonic regurgitation. Mitral Valve There is no mitral valve stenosis. There is no mitral valve regurgitation. Tricuspid Valve There is no tricuspid valve regurgitation. Pericardium/Pleural There is no pericardial effusion. Inferior Vena Cava Normal inferior vena cava with >50% collapse upon inspiration consistent with normal right atrial pressure, 5 mmHg. Aorta The aortic root size at the sinus of Valsalva is normal. Tricuspid Valve Name Value Normal Estimated PAP/RSVP RA Pressure 5 mmHg <=5 Report Signatures
--- NOTE | 2024-01-16 00:14 | PC.NURSE ---
Verbal order read back from EDP Dr. Laws to titrate midazolam to 2mg/hr and to titrate fentaynl to 50mcg/hr due to pt agitation increasing.
[2024-01-16 00:29] LABS: Lactic Acid 1.5 mmol/L (0.7-2.0)
--- NOTE | 2024-01-16 01:21 | PC.NURSE ---
Verbal order read back from EDP Dr. Laws to pause Fentanyl and Midazolam drips and resume propofol drip.
--- NOTE | 2024-01-16 02:18 | PC.NURSE ---
Verbal order from EDP Dr. Eusebia holcomb to use central line.
--- NOTE | 2024-01-16 02:34 | ECG_ITS ---
SEE SCANNED COPY FOR CONFIRMED REPORT. MTDD
[2024-01-16] MEDS: LORazepam INJ (*CRX) 2 MG/ML VIAL IV PUSH (02:48)
--- NOTE | 2024-01-16 02:55 | PC.NURSE ---
This patient, Francis Montes, was admitted to Intensive Care Unit-1. Patient/family oriented to hospital policies and general routines including ID bracelet, bed and alarms, visiting hours, pain management, procedures, bathroom and other care routines, personal items, smoking policy, room service/diet, and visiting hours. Information on how to activate the Rapid Response Team has been discussed. Patient/Family are encouraged to report perceived risks to care and to ask questions if they do not understand what they are told or what they should do.
[2024-01-16 03:03] LABS: Influenza B QL RT-PCR Negative (Negative); SARS-CoV-2 RNA PCR Negative (Negative)
[2024-01-16 03:04] LABS: Influenza A QL RT-PCR Negative (Negative); RSV RNA, RT-PCR Negative (Negative)
[2024-01-16 04:34] LABS: Basophils Percent Auto 0.1 % (0.2-1.2); Eosinophils Percent Auto 0.1 % (0-4.4); Hematocrit 27.2 % (42.0-52.0); Hemoglobin 9.9 g/dL (14.0-18.0); Immature Granulocyte Absolute 0.17 K/mm3 (0.00-0.031); Immature Granulocyte Percent A 1.4 % (0-0.5); Lymphocytes Absolute Auto 1.79 K/mm3 (0.9-3.2); Lymphocytes Percent Auto 14.7 % (18.3-44.2); Mean Corpuscular HGB Conc 36.4 g/dl (32-36); Mean Corpuscular Hemoglobin 33.9 pg (26-34); Mean Corpuscular Volume 93.2 fl (80-100); Mean Platelet Volume 8.3 fl (7.4-10.4); Monocytes Absolute Auto 1.4 K/mm3 (0.1-0.6); Monocytes Percent Auto 11.4 % (2.6-8.5); Neutrophils Absolute Auto 8.8 K/mm3 (1.3-6.7); Neutrophils Percent Auto 72.3 % (45.5-73.1); Platelet Count Result 161 k/mm3 (150-375); Red Blood Count 2.92 M/mm3 (4.6-6.20); Red Cell Distribution Width 13.2 % (11.5-14.5); White Blood Count 12.2 K/mm3 (4.5-10.0)
[2024-01-16 04:54] LABS: Alanine Aminotransferase 33 U/L (6-50); Albumin Level 2.9 g/dL (3.5-5.1); Alkaline Phosphatase 70 U/L (38-126); Anion Gap 3 mmol/L (4-12); Aspartate Amino Transferase 68 U/L (17-59); Bilirubin,Total 0.7 mg/dL (0.2-1.3); Blood Urea Nitrogen 21 mg/dL (9-20); Calcium 8.2 mg/dL (8.4-10.2); Carbon Dioxide 26 mmol/L (22-30); Chloride 95 mmol/L (98-107); Estimated CRCL calculation 59 ml/min; Estimated Glomerular Filt Rate 60; Glucose 118 mg/dL (65-110); Potassium 4.4 mmol/L (3.4-5.0); Sodium 124 mmol/L (137-145)
[2024-01-16 05:39] LABS: Magnesium 1.8 mg/dL (1.6-2.3); Phosphorus 4.4 mg/dL (2.5-4.5)
[2024-01-16 05:45] LABS: MRSA (PCR) NOT DETECTED (NOT DETECTE)
[2024-01-16 06:28] LABS: Alveolar/Arterial O2 Gradient 66.1 mmHg; Base Excess ABG -0.1 mEq/l (+/-2.0); Fractional Inspired Oxygen 40 %; HCO3 ABG 24.8 mEq/l (22.0-26.0); Oxygen Content ABG 15.6 %vol (16.0-22.0); Oxygen Saturation ABG 99.2 % (95.0-100.0); Oxyhemoglobin 98.7 % THb (90.0-100.0); PCO2 ABG 41.5 mmHg (35.0-45.0); PO2 ABG 171.4 mmHg (80.0-100.0); PO2 FiO2 Ratio Arterial Blood 4.28 %; pH ABG 7.394 (7.350-7.450)
[2024-01-16 06:31] LABS: Arterial Blood Gas PEEP 5 cmH2O; Arterial Blood Gas Tidal Volume 450 ml; Arterial Blood Gas Vent Mode CMV; Arterial Blood Gas Ventilator rate 18 /MIN; Device VENTILATOR; Modified Allen's Test Pass; Site Drawn RIGHT BRACHIAL
[2024-01-16] MEDS: PIPERACILLN/TAZ 3.375GM/NS50ML 3.375 GM/50 ML BAG IVPB ×4 (07:37→23:40)
[2024-01-16] MEDS: SODIUM CHLORIDE 0.9% IV 1,000 ML 75 ML IV CONT (08:03)
[2024-01-16] MEDS: ATORVASTATIN 10 MG TABLET PO (08:20)
[2024-01-16] MEDS: MINERAL OIL/WHITE PETROLATUM OINTMENT 1 APPLIC EACH EYE ×2 (08:20→21:07)
[2024-01-16] MEDS: THIAMINE HCL 200 MG/2 ML VIAL 100 MG IV PUSH (08:20)
[2024-01-16] MEDS: busPIRone HCL 10 MG TABLET PO ×2 (08:20→21:04)
[2024-01-16] MEDS: FOLIC ACID 1 MG/0.2 ML INJ IV PUSH (08:21)
[2024-01-16 08:33] LABS: Creatine Kinase 631 U/L (55-170)
--- NOTE | 2024-01-16 08:33 | WPDCNINT ---
Assessment and Plan Assessment and plan (1) Acute respiratory failure with hypoxia: Code(s): J96.01 - Acute respiratory failure with hypoxia Status: Acute Assessment and Plan: Patient presented with generalized weakness, became obtunded in the ER, tachycardic, delete aureus, tremulous, was given 10 mg Ativan was not responding to questions and was confused, ER physician decided to intubate the patient for impending respiratory failure after discussing with the family. -patient remains intubated on CMV mode of ventilation, peep of 5, 40% FiO2 -chest x-ray and ABGs reviewed -start bronchodilators -started patient's home Ellipta Sedated with fentanyl and Versed infusion, maintain RASS of 0 to-2, daily SAT and SBT (2) Acute metabolic encephalopathy: Code(s): G93.41 - Metabolic encephalopathy Status: Acute Assessment and Plan: Acute metabolic encephalopathy could be multifactorial sepsis, alcohol withdrawal, hyponatremia, anemia -patient currently on Versed infusion -does open his eyes and follows simple commands in all extremities -once extubated he will require PT/OT, possible brain MRI to evaluate for weakness, currently we cannot do a brain MRI at [facility] while patient is intubated on mechanical ventilation -ammonia levels within normal limits -check TSH (3) Alcohol withdrawal: Code(s): F10.939 - Alcohol use, unspecified with withdrawal, unspecified Status: Acute Assessment and Plan: History of alcohol use, drinks 12 pack of beer per day, Patient was found to be delirious, obtunded, tremulous, tachycardic in the ER, patient was given Ativan after he became more delirious and confused and had to be intubated and placed on mechanical ventilation (4) Alcohol dependence: Qualifiers: Substance use status: unspecified alcohol-induced disorder Qualified Code(s): F10.29 - Alcohol dependence with unspecified alcohol-induced disorder Code(s): F10.20 - Alcohol dependence, uncomplicated Status: Acute Assessment and Plan: History of alcohol dependence, patient's drinks 12 pack of beer per day -start patient on folic acid and thiamine -will housing counselor patient on cessation of alcohol use, will include care coordination to provide resources for alcohol cessation (5) Chronic obstructive pulmonary disease, unspecified: Qualifiers: COPD type: unspecified COPD Qualified Code(s): J44.9 - Chronic obstructive pulmonary disease, unspecified Code(s): J44.9 - Chronic obstructive pulmonary disease, unspecified Status: Chronic Assessment and Plan: History of COPD likely secondary to being a former smoker, patient smoked 3 packs per day for 35 years -continue home Ellipta -added bronchodilators -no wheezing noted, no indications for steroids at this time -currently on mechanical ventilation (6) Diabetes mellitus type 2 in obese: Code(s): E11.69 - Type 2 diabetes mellitus with other specified complication; E66.9 - Obesity, unspecified Status: Acute Assessment and Plan: Start Accu-Cheks and sliding scale insulin -will check hemoglobin A1c in a.m. (7) Sepsis: Code(s): A41.9 - Sepsis, unspecified organism Status: Acute Assessment and Plan: Patient presented with elevated WBC count, lactic acidosis, tachycardia -no signs of infection -patient does have a hematoma of the inferior rectus -CRP is 1.4, -procalcitonin is pending -Patient has been started on Zosyn hospitalist will continue for now -01/15/2024: Blood cultures have been obtained and pending (8) Hematoma of muscle: Code(s): T14.8XXA - Other injury of unspecified body region, initial encounter Status: Acute Assessment and Plan: CT of the abdomen and pelvis showed 10.2 cm left inferior rectus intramuscular hematoma, no active extravasation -patient also anemic -continue to monitor (9) Anemia: Code(s): D64.9 - Anemia
[2024-01-16 08:34] LABS: Ammonia < 9 umol/L (9-30); CRP 1.4 mg/dL (<1.0); Lipase 26 U/L (23-300)
[2024-01-16 08:37] LABS: INR 1.1; Prothrombin Time 14.7 Seconds (11.1-14.7)
[2024-01-16 09:13] LABS: Thyroid Stimulating Hormone Reflex 0.311 uIU/mL (0.465-4.68)
[2024-01-16 09:24] LABS: Iron 120 ug/dL (49-181)
[2024-01-16 09:34] LABS: Percent Iron Saturation 56 % (20-50)
[2024-01-16 09:43] LABS: Procalcitonin 0.1 ng/mL
[2024-01-16 10:29] LABS: Free T4 Free Thyroxine Reflex 1.14 ng/dL (0.78-2.19)
[2024-01-16 10:37] LABS: Folic Acid > 20.0 ng/mL (2.76->20); Vitamin B12 > 1000.0 pg/mL (239-931)
[2024-01-16] MEDS: PANTOPRAZOLE SODIUM IV 40 MG VIAL IV PUSH ×2 (10:49→21:04)
[2024-01-16] MEDS: levETIRAcetam 1000MG/NACL100ML 1,000 MG/100 ML BAG 400 MG IVPB (10:49)
[2024-01-16 11:12] LABS: Total Triiodothyronine (T3) 0.84 NG/ML (0.97-1.69)
[2024-01-16 12:09] LABS: Glucose Point of Care 88 mg/dl (65-105)
[2024-01-16] MEDS: IPRATROPIUM 0.5 MG/ALBUTEROL SULFATE 2.5 MG AMPUL.NEB 3 ML INHALATION ×2 (13:40→21:11)
[2024-01-16] MEDS: CENTRAL LINE FLUSH 10 ML IV PUSH ×2 (14:13→21:07)
--- NOTE | 2024-01-16 14:52 | ECG_ITS ---
SEE SCANNED COPY FOR CONFIRMED REPORT MTDD
[2024-01-16] MEDS: ADENOSINE IV SOLN 6 MG/2 ML VIAL IV PUSH (15:30)
[2024-01-16] MEDS: AMIODARONE 150 MG/D5W 100 ML 150 MG/100 ML BAG 600 MG IV CONT (15:30)
[2024-01-16] MEDS: AMIODARONE 360 MG/D5W 200 ML 360 MG/200 ML BAG 33.33 MG IV CONT (15:30)
--- NOTE | 2024-01-16 15:41 | PC.NURSE ---
went into a heartrate of 150's, informed Dr. Mascorro of this, pt done this earlier but spontaneously came back out of it, Dr. Mascorro at bed side after EKG done, originally stated to give metoprolol, but pt's b/p fell into 80's, stated to give 6MG DOSE OF ADENOSINE, pt connected to pads, med given and showed when heart rate slowed that he was in atrial fib. amio bolus and drip started at this time per Dr. Mascorro's order, heart rateafter bolus given 98- 105
[2024-01-16 18:14] LABS: Glucose Point of Care 115 mg/dl (65-105)
--- NOTE | 2024-01-16 18:52 | WPDNEURCNPN ---
Assessment and Plan Assessment and plan (1) Acute metabolic encephalopathy: Code(s): G93.41 - Metabolic encephalopathy Status: Acute (2) Elevated brain natriuretic peptide (BNP) level: Code(s): R79.89 - Other specified abnormal findings of blood chemistry Status: Acute (3) Diabetes mellitus: Qualifiers: Diabetes mellitus type: type 2 Diabetes mellitus correction insulin use: without correction use Diabetes mellitus complication detail: with polyneuropathy Code(s): E11.9 - Type 2 diabetes mellitus without complications Status: Acute (4) COPD (chronic obstructive pulmonary disease): Qualifiers: COPD type: unspecified COPD Qualified Code(s): J44.9 - Chronic obstructive pulmonary disease, unspecified Code(s): J44.9 - Chronic obstructive pulmonary disease, unspecified Status: Acute (5) Alcohol dependence: Qualifiers: Substance use status: unspecified alcohol-induced disorder Qualified Code(s): F10.29 - Alcohol dependence with unspecified alcohol-induced disorder Code(s): F10.20 - Alcohol dependence, uncomplicated Status: Acute (6) Alcohol withdrawal seizure: Code(s): F10.939 - Alcohol use, unspecified with withdrawal, unspecified; R56.9 - Unspecified convulsions Status: Acute (7) Cirrhosis of liver: Code(s): K74.60 - Unspecified cirrhosis of liver Status: Acute Plan Of suggest to continue supportive care since the patient is intubated. He is already on the Keppra 1000 mg twice a day and apparently he did have a seizure in emergency room and hence I would suggest to continue with it. Continue monitoring for memory point of view is recommended. Thank you very much pre Consult date: 01/16/24 HPI: Francis Montes is a 68 year old male history of chronic alcohol abuse and cirrhosis who presented to the emergency room with seizure-like spell. He deteriorated has not been intubated. Currently he is on fentanyl and Versed. He was also started on Keppra. He has not able to give any history and it is obtained from the review of the records and also from the garment sorter and nursing staff. Review of Systems Review of Systems: ROS unobtainable: Yes unobtainable due to endotracheal tube, unobtainable due to medical condition and unobtainable due to mental status PMF Past Medical History Medical History (Updated 01/16/24 @ 18:57 by Daisy Butterfield MD) Alcohol dependence Alcohol withdrawal seizure Alcoholic cirrhosis Chronic obstructive pulmonary disease, unspecified Cirrhosis of liver COPD (chronic obstructive pulmonary disease) Depression with anxiety Diabetes mellitus Diabetes mellitus type 2 in obese Gout Hepatitis A Injury of left shoulder Nicotine dependence Onychomycosis Peripheral neuropathy Peripheral neuropathy Peripheral vascular disease Portal venous hypertension Pure hypercholesterolemia Rotator cuff dysfunction Shoulder injury Stasis dermatitis of both legs Thrombocytopenia Type 2 diabetes mellitus without complication, without long-term current use of insulin Diagnosed in 2018 last hemoglobin A1c 5.07 October 2021 Xerosis cutis Surgical History Surgical History History of colonoscopy with polypectomy (03/2018) History of cystoscopy S/P TURP (status post transurethral resection of prostate) Family History Family History Mother Carcinoma of colon, Onset Age: 77 Father Diabetes mellitus Sibling Diabetes mellitus Social History Social History Social History: Code status: Full code Surrogate decision maker: Smoking packs per day: 3 Smoking cigarettes per day: 60.0 Years smoked: 35 Smoking pack-years: 105.00 Smoking status: Former smoker Tobacco type: cigarettes Second h
[2024-01-16] MEDS: AMIODARONE 360 MG/D5W 200 ML 360 MG/200 ML BAG 16.67 MG IV CONT (21:01)
[2024-01-16] MEDS: levETIRAcetam 500MG/NACL 100ML 500 MG/100 ML BAG 400 MG IVPB (21:05)
[2024-01-17] VITALS (41 sets, daily range): BP systolic 85–144; BP diastolic 35–91; PULSE 61–126; RESP 17–27; TEMP 36.1–38.1; O2SAT 92–100
[2024-01-17 01:07] LABS: Glucose Point of Care 113 mg/dl (65-105)
[2024-01-17 01:07] LABS: Glucose Point of Care 47 mg/dl (65-105)
[2024-01-17] MEDS: IPRATROPIUM 0.5 MG/ALBUTEROL SULFATE 2.5 MG AMPUL.NEB 3 ML INHALATION ×4 (02:59→20:00)
[2024-01-17] MEDS: MIDAZOLAM 100MG/NS 100ML(*CRX) 100 MG/100 ML BAG IV CONT (05:42)
[2024-01-17 05:54] LABS: Basophils Percent Auto 0.2 % (0.2-1.2); Eosinophils Absolute Auto 0.1 K/mm3 (0-0.3); Eosinophils Percent Auto 0.9 % (0-4.4); Hematocrit 32.2 % (42.0-52.0); Hemoglobin 10.8 g/dL (14.0-18.0); Immature Granulocyte Absolute 0.13 K/mm3 (0.00-0.031); Lymphocytes Absolute Auto 2.91 K/mm3 (0.9-3.2); Mean Corpuscular HGB Conc 33.5 g/dl (32-36); Mean Corpuscular Hemoglobin 34.2 pg (26-34); Mean Corpuscular Volume 101.9 fl (80-100); Mean Platelet Volume 8.9 fl (7.4-10.4); Monocytes Absolute Auto 1.2 K/mm3 (0.1-0.6); Monocytes Percent Auto 9.3 % (2.6-8.5); Neutrophils Absolute Auto 8.3 K/mm3 (1.3-6.7); Neutrophils Percent Auto 65.6 % (45.5-73.1); Platelet Count Result 138 k/mm3 (150-375); Red Blood Count 3.16 M/mm3 (4.6-6.20); Red Cell Distribution Width 13.6 % (11.5-14.5); White Blood Count 12.6 K/mm3 (4.5-10.0)
[2024-01-17 06:07] LABS: Alveolar/Arterial O2 Gradient 56.8 mmHg; Base Excess ABG -3.5 mEq/l (+/-2.0); Carboxyhemoglobin 0.9 % THb (0-2.0); Fractional Inspired Oxygen 30 %; HCO3 ABG 25.5 mEq/l (22.0-26.0); Methemoglobin ABG 0.2 %THb (0-1.5); Oxygen Content ABG 22.2 %vol (16.0-22.0); Oxygen Saturation ABG 94.4 % (95.0-100.0); Oxyhemoglobin 94.4 % THb (90.0-100.0); PO2 ABG 84.8 mmHg (80.0-100.0); PO2 FiO2 Ratio Arterial Blood 2.83 %; Reduced Hemoglobin 4.5 %THb (0-5.0); Total Hemoglobin 16.7 g/dL (12.0-18.0)
[2024-01-17 06:10] LABS: Modified Allen's Test Pass; PCO2 ABG 61.5 mmHg (35.0-45.0); Site Drawn RIGHT RADIAL; pH ABG 7.235 (7.350-7.450)
[2024-01-17 06:11] LABS: Arterial Blood Gas PEEP 5 cmH2O; Arterial Blood Gas Vent Mode CMV; Arterial Blood Gas Ventilator rate 18 /MIN; Device VENTILATOR
[2024-01-17 06:12] LABS: Arterial Blood Gas Tidal Volume 450 ml
[2024-01-17 06:13] LABS: Alanine Aminotransferase 29 U/L (6-50); Albumin Level 3.4 g/dL (3.5-5.1); Alkaline Phosphatase 74 U/L (38-126); Anion Gap 6 mmol/L (4-12); Aspartate Amino Transferase 58 U/L (17-59); Bilirubin,Total 0.7 mg/dL (0.2-1.3); Blood Urea Nitrogen 24 mg/dL (9-20); CRP 4.3 mg/dL (<1.0); Calcium 8.3 mg/dL (8.4-10.2); Carbon Dioxide 25 mmol/L (22-30); Chloride 99 mmol/L (98-107); Creatine Kinase 467 U/L (55-170); Estimated CRCL calculation 51 ml/min; Estimated Glomerular Filt Rate 51; Glucose 114 mg/dL (65-110); Lipase 61 U/L (23-300); Magnesium 1.9 mg/dL (1.6-2.3); Phosphorus 4.2 mg/dL (2.5-4.5); Potassium 4.1 mmol/L (3.4-5.0); Sodium 130 mmol/L (137-145)
[2024-01-17] MEDS: PIPERACILLN/TAZ 3.375GM/NS50ML 3.375 GM/50 ML BAG IVPB ×3 (06:44→17:54)
[2024-01-17] MEDS: ACETAMINOPHEN ELIXIR 325 MG/10.15 ML UDC 650 MG PO (06:45)
[2024-01-17] MEDS: CENTRAL LINE FLUSH 10 ML IV PUSH ×2 (06:46→20:34)
[2024-01-17 07:30] LABS: Hemoglobin A1C 4.8 % (<5.7)
[2024-01-17] MEDS: FOLIC ACID 1 MG/0.2 ML INJ IV PUSH (08:12)
[2024-01-17] MEDS: ATORVASTATIN 10 MG TABLET PO (08:12)
[2024-01-17] MEDS: busPIRone HCL 10 MG TABLET PO ×2 (08:12→20:34)
[2024-01-17] MEDS: THIAMINE HCL 200 MG/2 ML VIAL 100 MG IV PUSH (08:12)
[2024-01-17] MEDS: PANTOPRAZOLE SODIUM IV 40 MG VIAL IV PUSH ×2 (08:13→20:34)
[2024-01-17] MEDS: levETIRAcetam 500MG/NACL 100ML 500 MG/100 ML BAG 400 MG IVPB ×2 (08:13→20:34)
[2024-01-17] MEDS: MINERAL OIL/WHITE PETROLATUM OINTMENT 1 APPLIC EACH EYE ×2 (08:14→20:34)
[2024-01-17] MEDS: AMIODARONE 360 MG/D5W 200 ML 360 MG/200 ML BAG 16.67 MG IV CONT ×2 (08:29→20:32)
[2024-01-17 08:59] LABS: Alveolar/Arterial O2 Gradient 62.2 mmHg; Device VENTILATOR; Fractional Inspired Oxygen 30 %; HCO3 ABG 25.7 mEq/l (22.0-26.0); Modified Allen's Test Pass; Oxygen Content ABG 13.6 %vol (16.0-22.0); Oxygen Saturation ABG 95.9 % (95.0-100.0); Oxyhemoglobin 95.8 % THb (90.0-100.0); PCO2 ABG 53.1 mmHg (35.0-45.0); PO2 ABG 89.3 mmHg (80.0-100.0); PO2 FiO2 Ratio Arterial Blood 2.98 %; Site Drawn RIGHT RADIAL; pH ABG 7.303 (7.350-7.450)
--- NOTE | 2024-01-17 09:08 | WPDINTPN ---
Progress Note: A&P Assessment and Plan (1) Acute respiratory failure with hypoxia: Code(s): J96.01 - Acute respiratory failure with hypoxia Status: Acute Assessment and Plan: Patient presented with generalized weakness, became obtunded in the ER, tachycardic, delete aureus, tremulous, was given 10 mg Ativan was not responding to questions and was confused, ER physician decided to intubate the patient for impending respiratory failure after discussing with the family. -patient remains intubated on CMV mode of ventilation, peep of 5, 30% FiO2 -chest x-ray and ABGs reviewed -continue bronchodilators and Ellipta - 5/5 PSV weaning trial was performed this more. Patient showed hypercarbia and respiratory acidosis. Increased work of breathing and use of abdominal muscles for breathing. He will not be able to use BiPAP if extubated. Not a candidate for extubation at this time -change sedation to Precedex (2) Acute metabolic encephalopathy: Code(s): G93.41 - Metabolic encephalopathy Status: Acute Assessment and Plan: Acute metabolic encephalopathy could be multifactorial sepsis, alcohol withdrawal, hyponatremia, anemia -patient currently on Versed and fentanyl infusion. -switch sedation to Precedex -exam as above -once extubated he will require PT/OT, possible brain MRI to evaluate for weakness, currently we cannot do a brain MRI at [facility] while patient is intubated on mechanical ventilation -ammonia levels within normal limits -TSH 0.31 free T4 1.14 (3) Alcohol withdrawal: Code(s): F10.939 - Alcohol use, unspecified with withdrawal, unspecified Status: Acute Assessment and Plan: History of alcohol use, drinks 12 pack of beer per day, Patient was found to be delirious, obtunded, tremulous, tachycardic in the ER, patient was given Ativan after he became more delirious and confused and had to be intubated and placed on mechanical ventilation -switch sedation to Precedex (4) Alcohol dependence: Qualifiers: Substance use status: unspecified alcohol-induced disorder Qualified Code(s): F10.29 - Alcohol dependence with unspecified alcohol-induced disorder Code(s): F10.20 - Alcohol dependence, uncomplicated Status: Acute Assessment and Plan: History of alcohol dependence, patient's drinks 12 pack of beer per day -continue folic acid and thiamine -switch sedation to Precedex -will pet counselor patient on cessation of alcohol use, will include care coordination to provide resources for alcohol cessation (5) Chronic obstructive pulmonary disease, unspecified: Qualifiers: COPD type: unspecified COPD Qualified Code(s): J44.9 - Chronic obstructive pulmonary disease, unspecified Code(s): J44.9 - Chronic obstructive pulmonary disease, unspecified Status: Chronic Assessment and Plan: History of COPD likely secondary to being a former smoker, patient smoked 3 packs per day for 35 years -continue home Ellipta and ronchodilators -no wheezing noted, no indications for steroids at this time -currently on mechanical ventilation (6) Diabetes mellitus type 2 in obese: Code(s): E11.69 - Type 2 diabetes mellitus with other specified complication; E66.9 - Obesity, unspecified Status: Acute Assessment and Plan: Continue Accu-Cheks and sliding scale insulin HbA1c 4.8 (7) Sepsis: Code(s): A41.9 - Sepsis, unspecified organism Status: Acute Assessment and Plan: Patient presented with elevated WBC count, lactic acidosis, tachycardia Chest x-ray and UA were negative -patient does have a hematoma of the inferior rectus -CRP is 1.4, procalcitonin level was low -procalcitonin is pending -Patient has been started on Zosyn and will be continued for 48 hours and then deescalate if cultures remain negative -01/15/2024: Blood cultures have been obtained and pending (8) Hematoma of muscle: Code(s): T14.8XXA - Other
[2024-01-17] MEDS: dexmedeTOMIDine 400 MCG/100 ML 400 MCG/100 ML BAG IV CONT (09:25)
--- NOTE | 2024-01-17 10:03 | PCFNICU ---
ICU Rounding Note: Pt current nutrition is Vital AF 1.2 at 20 ml//hr Nutrition recommendation: goal rate at 60ml/hr. Last recorded weight is 63.5 kg unsure of weight accuracy. Weight on 01/15 78.9 kg. Bowel Motility:No BM reported. Labs Reviewed:Glu 114, BUN 24, Cr 1.4,Na 130, Hct 32.2, Hgb 10.8 Meds Noted:Versed, Fentanyl, Precedex,Keppra, Folic Acid, Lipitor, Thiamine Skin: WNL Additional Notes: Patient remains on mechanical vent. Breathing trial attempted,not successful. Tube feedings are being tolerated of Vital AF 1.2. Plans to advance tube feeding goal rate to 60 ml/hr. Goal rate providing 1584 kcal/99 gm protein/1070 ml water. Flush 30 ml q 4 hours. Agree with diet orders. Monitoring labs, vital signs, orders, weights, output, tube feeding tolerance Follow daily in rounds, reassess Tuesdays and Fridays.
[2024-01-17 12:02] LABS: Glucose Point of Care 161 mg/dl (65-105)
[2024-01-17] MEDS: ALBUMIN HUMAN 5% 25 GM/500 ML BTL IV CONT (14:31)
[2024-01-17] MEDS: SODIUM CHLORIDE 0.9% IV 1,000 ML 75 ML (15:09)
[2024-01-17 17:57] LABS: Glucose Point of Care 154 mg/dl (65-105)
[2024-01-17] MEDS: LORazepam INJ (*CRX) 2 MG/ML VIAL IV PUSH (18:22)
[2024-01-17] MEDS: MIDAZOLAM HCL (*CRX) 2 MG/2 ML VIAL IV PUSH (18:39)
[2024-01-18] VITALS (35 sets, daily range): BP systolic 102–153; BP diastolic 45–79; PULSE 60–120; RESP 18–29; TEMP 36.1–37.3; O2SAT 97–100
[2024-01-18] MEDS: ALBUMIN HUMAN 25% 25 GM/100 ML 100 ML IVPB ×4 (01:30→18:48)
[2024-01-18] MEDS: PIPERACILLN/TAZ 3.375GM/NS50ML 3.375 GM/50 ML BAG IVPB ×2 (01:30→06:06)
[2024-01-18] MEDS: IPRATROPIUM 0.5 MG/ALBUTEROL SULFATE 2.5 MG AMPUL.NEB 3 ML INHALATION ×4 (02:08→20:31)
[2024-01-18 04:55] LABS: Alveolar/Arterial O2 Gradient 57.9 mmHg; Carboxyhemoglobin 0.4 % THb (0-2.0); Fractional Inspired Oxygen 30 %; HCO3 ABG 23.1 mEq/l (22.0-26.0); Methemoglobin ABG 0.1 %THb (0-1.5); Oxygen Content ABG 12.3 %vol (16.0-22.0); Oxygen Saturation ABG 97.1 % (95.0-100.0); Oxyhemoglobin 96.7 % THb (90.0-100.0); PCO2 ABG 46.9 mmHg (35.0-45.0); PO2 ABG 100.9 mmHg (80.0-100.0); PO2 FiO2 Ratio Arterial Blood 3.36 %; Reduced Hemoglobin 2.8 %THb (0-5.0); Total Hemoglobin 8.9 g/dL (12.0-18.0); pH ABG 7.311 (7.350-7.450)
[2024-01-18 04:57] LABS: Device VENTILATOR; Modified Allen's Test Pass; Site Drawn RIGHT RADIAL
[2024-01-18 04:58] LABS: Arterial Blood Gas PEEP 5 cmH2O; Arterial Blood Gas Vent Mode CMV; Arterial Blood Gas Ventilator rate 22 /MIN
[2024-01-18 04:59] LABS: Arterial Blood Gas Tidal Volume 450 ml
[2024-01-18 06:25] LABS: Glucose Point of Care 128 mg/dl (65-105)
[2024-01-18 06:25] LABS: Glucose Point of Care 27 mg/dl (65-105)
[2024-01-18] MEDS: CENTRAL LINE FLUSH 10 ML IV PUSH ×3 (06:37→20:06)
[2024-01-18 06:40] LABS: Alanine Aminotransferase 19 U/L (6-50); Albumin Level 3.1 g/dL (3.5-5.1); Alkaline Phosphatase 62 U/L (38-126); Anion Gap 4 mmol/L (4-12); Aspartate Amino Transferase 33 U/L (17-59); Bilirubin,Total 0.8 mg/dL (0.2-1.3); Blood Urea Nitrogen 18 mg/dL (9-20); Calcium 8.3 mg/dL (8.4-10.2); Carbon Dioxide 24 mmol/L (22-30); Chloride 102 mmol/L (98-107); Estimated CRCL calculation 72 ml/min; Estimated Glomerular Filt Rate > 60; Glucose 143 mg/dL (65-110); Magnesium 1.7 mg/dL (1.6-2.3); Potassium 3.6 mmol/L (3.4-5.0); Sodium 130 mmol/L (137-145)
[2024-01-18 07:44] LABS: Basophils Percent Auto 0.3 % (0.2-1.2); Eosinophils Absolute Auto 0.1 K/mm3 (0-0.3); Eosinophils Percent Auto 1.3 % (0-4.4); Hematocrit 23.2 % (42.0-52.0); Hemoglobin 7.5 g/dL (14.0-18.0); Immature Granulocyte Absolute 0.03 K/mm3 (0.00-0.031); Immature Granulocyte Percent A 0.8 % (0-0.5); Immature Platelet Fraction Pct 1.8 % (0.9-11.2); Lymphocytes Absolute Auto 0.82 K/mm3 (0.9-3.2); Lymphocytes Percent Auto 21.1 % (18.3-44.2); Mean Corpuscular HGB Conc 32.3 g/dl (32-36); Mean Corpuscular Hemoglobin 32.9 pg (26-34); Mean Corpuscular Volume 101.8 fl (80-100); Mean Platelet Volume 8.9 fl (7.4-10.4); Monocytes Absolute Auto 0.2 K/mm3 (0.1-0.6); Monocytes Percent Auto 5.9 % (2.6-8.5); Neutrophils Absolute Auto 2.8 K/mm3 (1.3-6.7); Neutrophils Percent Auto 70.6 % (45.5-73.1); Platelet Count Result 94 k/mm3 (150-375); Red Blood Count 2.28 M/mm3 (4.6-6.20); Red Cell Distribution Width 13.4 % (11.5-14.5); White Blood Count 3.9 K/mm3 (4.5-10.0)
[2024-01-18] MEDS: POTASSIUM CHLORIDE 20 MEQ PACKET (FOR LIQUID) 40 MEQ FEED TUBE (08:12)
[2024-01-18] MEDS: THIAMINE HCL 200 MG/2 ML VIAL 100 MG IV PUSH (08:13)
[2024-01-18] MEDS: FOLIC ACID 1 MG/0.2 ML INJ IV PUSH (08:13)
[2024-01-18] MEDS: MAGNESIUM SULF 2 GM/WATER 50ML 2 GM/50 ML BAG IVPB (08:13)
[2024-01-18] MEDS: ATORVASTATIN 10 MG TABLET PO (08:13)
[2024-01-18] MEDS: PANTOPRAZOLE SODIUM IV 40 MG VIAL IV PUSH ×2 (08:14→20:05)
[2024-01-18] MEDS: busPIRone HCL 10 MG TABLET PO ×2 (08:14→20:05)
[2024-01-18] MEDS: levETIRAcetam 500MG/NACL 100ML 500 MG/100 ML BAG 400 MG IVPB ×2 (08:15→20:05)
[2024-01-18] MEDS: MINERAL OIL/WHITE PETROLATUM OINTMENT 1 APPLIC EACH EYE ×2 (08:15→20:06)
--- NOTE | 2024-01-18 08:21 | WPDINTPN ---
Progress Note: A&P Assessment and Plan (1) Acute respiratory failure with hypoxia: Code(s): J96.01 - Acute respiratory failure with hypoxia Status: Acute Assessment and Plan: Patient presented with generalized weakness, became obtunded in the ER, tachycardic, delete aureus, tremulous, was given 10 mg Ativan was not responding to questions and was confused, ER physician decided to intubate the patient for impending respiratory failure after discussing with the family. -patient remains intubated on CMV mode of ventilation, peep of 5, 30% FiO2 -chest x-ray and ABGs reviewed -continue bronchodilators and Ellipta - 5/5 PSV weaning trial was performed this more. Patient showed hypercarbia and respiratory acidosis. Increased work of breathing and use of abdominal muscles for breathing. He will not be able to use BiPAP if extubated. Not a candidate for extubation at this time. Changed sedation to Precedex - 01/17 chest x-ray ABG reviewed. Will try weaning trial again today (2) Acute metabolic encephalopathy: Code(s): G93.41 - Metabolic encephalopathy Status: Acute Assessment and Plan: Acute metabolic encephalopathy could be multifactorial sepsis, alcohol withdrawal, hyponatremia, anemia -patient currently on Versed and fentanyl infusion. -switch sedation to Precedex -exam as above -once extubated he will require PT/OT, possible brain MRI to evaluate for weakness, currently we cannot do a brain MRI at [facility] while patient is intubated on mechanical ventilation -ammonia levels within normal limits -TSH 0.31 free T4 1.14 (3) Alcohol withdrawal: Code(s): F10.939 - Alcohol use, unspecified with withdrawal, unspecified Status: Acute Assessment and Plan: History of alcohol use, drinks 12 pack of beer per day, Patient was found to be delirious, obtunded, tremulous, tachycardic in the ER, patient was given Ativan after he became more delirious and confused and had to be intubated and placed on mechanical ventilation -switch sedation to Precedex (4) Alcohol dependence: Qualifiers: Substance use status: unspecified alcohol-induced disorder Qualified Code(s): F10.29 - Alcohol dependence with unspecified alcohol-induced disorder Code(s): F10.20 - Alcohol dependence, uncomplicated Status: Acute Assessment and Plan: History of alcohol dependence, patient's drinks 12 pack of beer per day -continue folic acid and thiamine -switch sedation to Precedex -will children counselor patient on cessation of alcohol use, will include care coordination to provide resources for alcohol cessation (5) Chronic obstructive pulmonary disease, unspecified: Qualifiers: COPD type: unspecified COPD Qualified Code(s): J44.9 - Chronic obstructive pulmonary disease, unspecified Code(s): J44.9 - Chronic obstructive pulmonary disease, unspecified Status: Chronic Assessment and Plan: History of COPD likely secondary to being a former smoker, patient smoked 3 packs per day for 35 years -continue home Ellipta and ronchodilators -no wheezing noted, no indications for steroids at this time -currently on mechanical ventilation (6) Sepsis: Code(s): A41.9 - Sepsis, unspecified organism Status: Acute Assessment and Plan: Patient presented with elevated WBC count, lactic acidosis, tachycardia Chest x-ray and UA were negative -patient does have a hematoma of the inferior rectus -CRP is 1.4, procalcitonin level was low -Patient was started on Zosyn and cultures have been negative. Chest x-ray is clear -01/15/2024: Blood cultures have been obtained and negative till now 01/17 will DC Zosyn (7) Hematoma of muscle: Code(s): T14.8XXA - Other injury of unspecified body region, initial encounter Status: Acute Assessment and Plan: CT of the abdomen and pelvis showed 10.2 cm left inferior rectus intramuscular hematoma, no active extravasation -pat
[2024-01-18 08:46] LABS: Arterial Blood Gas PEEP 5 cmH2O; Arterial Blood Gas Vent Mode SPONTANEOUS; Peak Inspiratory Pressure 5 cmH2O
[2024-01-18 09:10] LABS: Alveolar/Arterial O2 Gradient 26.4 mmHg; Carboxyhemoglobin 0.9 % THb (0-2.0); Fractional Inspired Oxygen 30 %; HCO3 ABG 26.4 mEq/l (22.0-26.0); Methemoglobin ABG 0.2 %THb (0-1.5); Oxygen Content ABG 11.9 %vol (16.0-22.0); Oxygen Saturation ABG 98.2 % (95.0-100.0); Oxyhemoglobin 97.5 % THb (90.0-100.0); PCO2 ABG 52.5 mmHg (35.0-45.0); PO2 ABG 125.8 mmHg (80.0-100.0); PO2 FiO2 Ratio Arterial Blood 4.19 %; Reduced Hemoglobin 1.4 %THb (0-5.0); Total Hemoglobin 8.5 g/dL (12.0-18.0)
[2024-01-18 09:12] LABS: Device VENTILATOR; Site Drawn RIGHT BRACHIAL
[2024-01-18 09:13] LABS: Arterial Blood Gas PEEP 5 cmH2O; Arterial Blood Gas Pressure Support 5 cmH2O; Arterial Blood Gas Vent Mode SPONTANEOUS
--- NOTE | 2024-01-18 10:48 | PCFNICU ---
ICU Rounding Note: Pt current nutrition is Vital AF 1.2 at 50 ml/hr. Nutrition recommendation: 60 ml/hr goal rate. Last recorded weight is 86.1 kg, unsure of bedscale. Weight 01/16-63 kg. Bowel Motility: No BM reported. Labs Reviewed: Gl u143, Na 130, Hct 23.2,Hgb 7.5 Meds Noted:Precedex, Folic Acid, Thiamine, Protonix Skin: WNL Additional Notes: Patient remains on mechanical vent. Failed breathing trial today. Plans to restart tube feedings of Vital AF 1.2 at goal rate 60 ml/hr. Flush 30 ml q 4 hours. Following daily in ICU rounds. Monitoring labs, vital signs, orders, weights, output, tube feeding tolerance and reassess Tuesdays and Fridays.
[2024-01-18 13:09] LABS: Glucose Point of Care 129 mg/dl (65-105)
[2024-01-18] MEDS: dexmedeTOMIDine 400 MCG/100 ML 400 MCG/100 ML BAG IV CONT (14:59)
--- NOTE | 2024-01-18 17:47 | P.PNIM_ITS ---
Progress Note: A&P Assessment and Plan (1) Acute respiratory failure with hypoxia: Code(s): J96.01 - Acute respiratory failure with hypoxia Status: Acute Assessment and Plan: Patient presented with generalized weakness, became obtunded in the ER, tachycardic, delete aureus, tremulous, was given 10 mg Ativan was not responding to questions and was confused, ER physician decided to intubate the patient for impending respiratory failure after discussing with the family. -patient remains intubated on CMV mode of ventilation, peep of 5, 30% FiO2 -chest x-ray and ABGs reviewed -continue bronchodilators and Ellipta - 5/5 PSV weaning trial was performed this more. Patient showed hypercarbia and respiratory acidosis. Increased work of breathing and use of abdominal muscles for breathing. He will not be able to use BiPAP if extubated. Not a candidate for extubation at this time. Changed sedation to Precedex - 01/17 chest x-ray ABG reviewed. Will try weaning trial again today (2) Acute metabolic encephalopathy: Code(s): G93.41 - Metabolic encephalopathy Status: Acute Assessment and Plan: Acute metabolic encephalopathy could be multifactorial sepsis, alcohol withdrawal, hyponatremia, anemia -patient currently on Versed and fentanyl infusion. -switch sedation to Precedex -exam as above -once extubated he will require PT/OT, possible brain MRI to evaluate for weakness, currently we cannot do a brain MRI at [facility] while patient is intubated on mechanical ventilation -ammonia levels within normal limits -TSH 0.31 free T4 1.14 (3) Alcohol withdrawal: Code(s): F10.939 - Alcohol use, unspecified with withdrawal, unspecified Status: Acute Assessment and Plan: History of alcohol use, drinks 12 pack of beer per day, Patient was found to be delirious, obtunded, tremulous, tachycardic in the ER, patient was given Ativan after he became more delirious and confused and had to be intubated and placed on mechanical ventilation -switch sedation to Precedex (4) Alcohol dependence: Qualifiers: Substance use status: unspecified alcohol-induced disorder Qualified Code(s): F10.29 - Alcohol dependence with unspecified alcohol-induced disorder Code(s): F10.20 - Alcohol dependence, uncomplicated Status: Acute Assessment and Plan: History of alcohol dependence, patient's drinks 12 pack of beer per day -continue folic acid and thiamine -switch sedation to Precedex -will certified rehabilitation counselor patient on cessation of alcohol use, will include care coordination to provide resources for alcohol cessation (5) Chronic obstructive pulmonary disease, unspecified: Qualifiers: COPD type: unspecified COPD Qualified Code(s): J44.9 - Chronic obstructive pulmonary disease, unspecified Code(s): J44.9 - Chronic obstructive pulmonary disease, unspecified Status: Chronic Assessment and Plan: History of COPD likely secondary to being a former smoker, patient smoked 3 packs per day for 35 years -continue home Ellipta and ronchodilators -no wheezing noted, no indications for steroids at this time -currently on mechanical ventilation (6) Sepsis: Code(s): A41.9 - Sepsis, unspecified organism Status: Acute Assessment and Plan: Patient presented with elevated WBC count, lactic acidosis, tachycardia Chest x-ray and UA were negative -patient does have a hematoma of the inferior rectus -CRP is 1.4, procalcitonin level was low -Patient was started on Zosyn and cultures have been negative. Chest x-ray is clear -01/15/2024: Blood cultures have been obtained and ne
[2024-01-18 18:44] LABS: Glucose Point of Care 156 mg/dl (65-105)
[2024-01-18] MEDS: dexmedeTOMIDine 400 MCG/100 ML 400 MCG/100 ML BAG 7.94 MCG IV CONT (20:44)
[2024-01-18] MEDS: fentaNYL CITRATE INJ (*CRX) 100 MCG/2 ML VIAL 25 MCG IV PUSH (21:20)
--- NOTE | 2024-01-18 21:29 | PC.NURSE ---
Pt agitated. Dr veras notified. Okayed titration to .7 on precedex and ordered prn fentanyl
[2024-01-19] VITALS (38 sets, daily range): BP systolic 120–165; BP diastolic 46–78; PULSE 69–125; RESP 15–26; TEMP 36.3–36.7; O2SAT 96–100
[2024-01-19 00:12] LABS: Glucose Point of Care 139 mg/dl (65-105)
[2024-01-19] MEDS: IPRATROPIUM 0.5 MG/ALBUTEROL SULFATE 2.5 MG AMPUL.NEB 3 ML INHALATION ×4 (02:21→20:09)
[2024-01-19 04:52] LABS: Alveolar/Arterial O2 Gradient 61.5 mmHg; Base Excess ABG -2.1 mEq/l (+/-2.0); Carboxyhemoglobin 0.6 % THb (0-2.0); Fractional Inspired Oxygen 30 %; HCO3 ABG 21.9 mEq/l (22.0-26.0); Methemoglobin ABG 0.1 %THb (0-1.5); Oxygen Saturation ABG 98.3 % (95.0-100.0); Oxyhemoglobin 97.4 % THb (90.0-100.0); PCO2 ABG 33.9 mmHg (35.0-45.0); PO2 ABG 112.6 mmHg (80.0-100.0); PO2 FiO2 Ratio Arterial Blood 3.75 %; Reduced Hemoglobin 1.9 %THb (0-5.0); Total Hemoglobin 8.6 g/dL (12.0-18.0); pH ABG 7.428 (7.350-7.450)
[2024-01-19] MEDS: fentaNYL CITRATE INJ (*CRX) 100 MCG/2 ML VIAL 25 MCG IV PUSH ×2 (05:00→06:07)
[2024-01-19 05:20] LABS: Arterial Blood Gas Ventilator rate 22 /MIN; Device VENTILATOR; Modified Allen's Test Pass; Site Drawn LEFT RADIAL
[2024-01-19 05:21] LABS: Arterial Blood Gas PEEP 5 cmH2O; Arterial Blood Gas Tidal Volume 450 ml; Arterial Blood Gas Vent Mode CMV
[2024-01-19 06:05] LABS: Basophils Percent Auto 0.1 % (0.2-1.2); Eosinophils Absolute Auto 0.1 K/mm3 (0-0.3); Eosinophils Percent Auto 1.2 % (0-4.4); Hemoglobin 8.6 g/dL (14.0-18.0); Immature Granulocyte Absolute 0.07 K/mm3 (0.00-0.031); Immature Platelet Fraction Pct 2.5 % (0.9-11.2); Lymphocytes Absolute Auto 1.74 K/mm3 (0.9-3.2); Mean Corpuscular HGB Conc 33.1 g/dl (32-36); Mean Corpuscular Volume 102.8 fl (80-100); Mean Platelet Volume 9.1 fl (7.4-10.4); Monocytes Absolute Auto 0.4 K/mm3 (0.1-0.6); Monocytes Percent Auto 5.7 % (2.6-8.5); Neutrophils Absolute Auto 4.4 K/mm3 (1.3-6.7); Platelet Count Result 118 k/mm3 (150-375); Red Blood Count 2.53 M/mm3 (4.6-6.20); Red Cell Distribution Width 13.6 % (11.5-14.5); White Blood Count 6.7 K/mm3 (4.5-10.0)
[2024-01-19 06:08] LABS: Alanine Aminotransferase 24 U/L (6-50); Albumin Level 3.9 g/dL (3.5-5.1); Alkaline Phosphatase 78 U/L (38-126); Anion Gap 6 mmol/L (4-12); Aspartate Amino Transferase 49 U/L (17-59); Bilirubin,Total 1.2 mg/dL (0.2-1.3); Blood Urea Nitrogen 14 mg/dL (9-20); Calcium 8.8 mg/dL (8.4-10.2); Carbon Dioxide 27 mmol/L (22-30); Chloride 102 mmol/L (98-107); Estimated CRCL calculation 88 ml/min; Estimated Glomerular Filt Rate > 60; Glucose 135 mg/dL (65-110); Magnesium 1.8 mg/dL (1.6-2.3); Potassium 3.8 mmol/L (3.4-5.0); Sodium 135 mmol/L (137-145)
[2024-01-19] MEDS: dexmedeTOMIDine 400 MCG/100 ML 400 MCG/100 ML BAG 12.7 MCG IV CONT (07:09)
[2024-01-19] MEDS: CENTRAL LINE FLUSH 10 ML IV PUSH ×3 (07:11→22:59)
[2024-01-19] MEDS: POTASSIUM CHLORIDE 20 MEQ PACKET (FOR LIQUID) 40 MEQ FEED TUBE (08:10)
[2024-01-19] MEDS: levETIRAcetam 500MG/NACL 100ML 500 MG/100 ML BAG 400 MG IVPB ×2 (08:10→21:07)
[2024-01-19] MEDS: ATORVASTATIN 10 MG TABLET PO (08:10)
[2024-01-19] MEDS: busPIRone HCL 10 MG TABLET PO ×2 (08:10→21:14)
[2024-01-19] MEDS: THIAMINE HCL 200 MG/2 ML VIAL 100 MG IV PUSH (08:10)
[2024-01-19] MEDS: PANTOPRAZOLE SODIUM IV 40 MG VIAL IV PUSH ×2 (08:10→21:13)
[2024-01-19] MEDS: MINERAL OIL/WHITE PETROLATUM OINTMENT 1 APPLIC EACH EYE (08:11)
[2024-01-19] MEDS: MAGNESIUM SULF 2 GM/WATER 50ML 2 GM/50 ML BAG IVPB (08:13)
[2024-01-19] MEDS: FOLIC ACID 1 MG/0.2 ML INJ IV PUSH (08:13)
--- NOTE | 2024-01-19 09:03 | WPDINTPN ---
Progress Note: A&P Assessment and Plan (1) Acute respiratory failure with hypoxia: Code(s): J96.01 - Acute respiratory failure with hypoxia Status: Acute Assessment and Plan: Patient presented with generalized weakness, became obtunded in the ER, tachycardic, delete aureus, tremulous, was given 10 mg Ativan was not responding to questions and was confused, ER physician decided to intubate the patient for impending respiratory failure after discussing with the family. -patient remains intubated on CMV mode of ventilation, peep of 5, 30% FiO2 -chest x-ray and ABGs reviewed -continue bronchodilators and Ellipta - 01/16-01/17 12/31 PSV weaning trial was performed this more. Patient showed hypercarbia and respiratory acidosis. Increased work of breathing and use of abdominal muscles for breathing. He will not be able to use BiPAP if extubated. Not a candidate for extubation at this time. Changed sedation to Precedex - 01/18 chest x-ray ABG reviewed. Patient placed on 01/03 weaning trial again today (2) Acute metabolic encephalopathy: Code(s): G93.41 - Metabolic encephalopathy Status: Acute Assessment and Plan: Acute metabolic encephalopathy could be multifactorial sepsis, alcohol withdrawal, hyponatremia, anemia -patient currently on Versed and fentanyl infusion. -switch sedation to Precedex -exam as above -once extubated he will require PT/OT, possible brain MRI to evaluate for weakness, currently we cannot do a brain MRI at [facility] while patient is intubated on mechanical ventilation -ammonia levels within normal limits -TSH 0.31 free T4 1.14 (3) Alcohol withdrawal: Code(s): F10.939 - Alcohol use, unspecified with withdrawal, unspecified Status: Acute Assessment and Plan: History of alcohol use, drinks 12 pack of beer per day, Patient was found to be delirious, obtunded, tremulous, tachycardic in the ER, patient was given Ativan after he became more delirious and confused and had to be intubated and placed on mechanical ventilation -continue Precedex (4) Alcohol dependence: Qualifiers: Substance use status: unspecified alcohol-induced disorder Qualified Code(s): F10.29 - Alcohol dependence with unspecified alcohol-induced disorder Code(s): F10.20 - Alcohol dependence, uncomplicated Status: Acute Assessment and Plan: History of alcohol dependence, patient's drinks 12 pack of beer per day -continue folic acid and thiamine -continue Precedex -will admitting counselor patient on cessation of alcohol use, will include care coordination to provide resources for alcohol cessation (5) Chronic obstructive pulmonary disease, unspecified: Qualifiers: COPD type: unspecified COPD Qualified Code(s): J44.9 - Chronic obstructive pulmonary disease, unspecified Code(s): J44.9 - Chronic obstructive pulmonary disease, unspecified Status: Chronic Assessment and Plan: History of COPD likely secondary to being a former smoker, patient smoked 3 packs per day for 35 years -continue home Ellipta and ronchodilators -no wheezing noted, no indications for steroids at this time -currently on mechanical ventilation (6) Sepsis: Code(s): A41.9 - Sepsis, unspecified organism Status: Acute Assessment and Plan: Patient presented with elevated WBC count, lactic acidosis, tachycardia Chest x-ray and UA were negative -patient does have a hematoma of the inferior rectus -CRP is 1.4, procalcitonin level was low -Patient was started on Zosyn and cultures have been negative. Chest x-ray is clear -01/15/2024: Blood cultures have been obtained and negative till now 01/17 will DC Zosyn (7) Hematoma of muscle: Code(s): T14.8XXA - Other injury of unspecified body region, initial encounter Status: Acute Assessment and Plan: CT of the abdomen and pelvis showed 10.2 cm left inferior rectus intramuscular hematoma, no active extravasation -
[2024-01-19 09:20] LABS: Base Excess ABG 1.9 mEq/l (+/-2.0); Carboxyhemoglobin 0.8 % THb (0-2.0); Fractional Inspired Oxygen 30 %; HCO3 ABG 27.1 mEq/l (22.0-26.0); Methemoglobin ABG 0.1 %THb (0-1.5); Oxygen Content ABG 10.2 %vol (16.0-22.0); Oxygen Saturation ABG 88.2 % (95.0-100.0); PCO2 ABG 45.8 mmHg (35.0-45.0); PO2 ABG 55.1 mmHg (80.0-100.0); PO2 FiO2 Ratio Arterial Blood 1.84 %; Reduced Hemoglobin 12.3 %THb (0-5.0); Total Hemoglobin 8.3 g/dL (12.0-18.0)
[2024-01-19 09:27] LABS: Device VENTILATOR; Oxyhemoglobin 86.8 % THb (90.0-100.0); Site Drawn RIGHT RADIAL
[2024-01-19 09:29] LABS: Arterial Blood Gas PEEP 8 cmH2O; Arterial Blood Gas Pressure Support 5 cmH2O; Arterial Blood Gas Vent Mode SPONTANEOUS
[2024-01-19] MEDS: UMECLIDINIUM/VILANTEROL 62.5-25 MCG ELLIPTA 1 PUFF INHALATION (09:51)
--- NOTE | 2024-01-19 10:15 | PCFNICU ---
ICU Rounding Note: Pt current nutrition is NPO. Nutrition Recommendation: DBCC diet. Last recorded weight is 89 kg, up from 86.1 kg. Bowel Motility: No BM reported. Labs Reviewed:Glu 135, NA 135, Hct 26.0,Hgb 8.6 Meds Noted:Folic Acid, Lovenox, Keppra, Thiamine, Precedex. Skin: WNL Additional Notes: Patient has been extubated. Diet order: NPO at this time. Recommend advancing diet as tolerated to DBCC diet. Following daily in ICU rounds. Monitoring labs, vital signs, orders, weights, meds every 3 days.
--- NOTE | 2024-01-19 10:50 | WPDNEUROPN ---
Progress Note: A&P Assessment and Plan (1) Alcohol withdrawal seizure: Code(s): F10.939 - Alcohol use, unspecified with withdrawal, unspecified; R56.9 - Unspecified convulsions Status: Acute Plan Mr. rachel is a 68 year old male with a history of chronic alcohol depedence who presented with generalized weakness, fatigue, and shortness of breath. While in the ER had seizure like activity. Could be possible seizure in the setting of alcohol withdrawal. Reasonable to continue Keppra. Will need MRI brain and routine EEG when stable to complete seizure work-up. Recommend no driving until episode free for at least 6 months. Subjective Date/time seen: 01/19/24 10:50 Interval history: Mr. Montes is a 68 year old male with a history of COPD, chronic alcohol use, cirrhosis, DM, neuropathy, tremor, thrombocytopenia, PAD, HLD who presented on 01/14 due to generalized weakness, fatigue, shortness of breath. While in the ER patient became 'obtunded, delirious, tachycardic with HR in the 160s'. He was given Ativan 10mg IV in total and was intubated for respiratory failure. CT head did not show any acute changes. He was started on Keppra 1000mg BID due to concerns for possible seizure. He is still intubated and on Precedex. He apparently drinks a 12 pack of beer per day. His ethanol level was negative on presentation. His ammonia level was negative. He is receiving thiamine and folic acid supplementation. Patient extubated this morning. is at bedside. Review of Systems Review of Systems: ROS unobtainable: Yes unobtainable due to mental status Exam Const: General: comfortable and no acute distress HENMT: Mouth: Yes moist mucous membranes Eyes: Pupils: Equal, round and reactive pupils present Other: conjugate gaze Resp: Effort & Inspection: normal respiratory effort Skin: General skin exam: normal color Neuro: Other: Awake, alert, voice is hoarse but able to communicate, oriented to self only currently. Moving RUE against gravity, can bend both knees equally and kick out, LUE weaker which reports is related to prior shoulder surgery, following commands well. Sensation seems to be symmetric throughout. Extrem: General: normal to inspection Objective Data Vital Signs Vital Signs: Vital Signs - 24 hr 01/18/24 11:50 01/18/24 12:00 01/18/24 12:00 Temperature Pulse Rate 80 83 Respiratory Rate Blood Pressure Pulse Oximetry 100 Oxygen Delivery Mechanical Ventilation Oxygen Flow Rate Fraction of Inspired Oxygen 30 30 01/18/24 12:00 01/18/24 12:00 01/18/24 13:00 Temperature 36.5 C Pulse Rate 83 80 Respiratory Rate 22 H Blood Pressure 119/70 Pulse Oximetry 100 100 100 Oxygen Delivery Mechanical Ventilation Mechanical Ventilation Oxygen Flow Rate Fraction of Inspired Oxygen 30 30 01/18/24 13:00 01/18/24 13:07 01/18/24 12:01 Temperature Pulse Rate 80 80 79 Respiratory Rate 24 H 23 H 18 Blood Pressure Pulse Oximetry Oxygen Delivery Oxygen Flow Rate Fraction of Inspired Oxygen 01/18/24 14:00 01/18/24 14:00 01/18/24 16:02 Temperature 36.5 C Pulse Rate 78 78 90 Respiratory Rate 22 H Blood Pressure 111/49 L Pulse Oximetry 100 100 Oxygen Delivery Mechanical Ventilation Oxygen Flow Rate Fraction of Inspired Oxygen 30 01/18/24 16:00 01/18/24 16:00 01/18/24 16:00 Temperature Pulse Rate 94 Respiratory Rate Blood Pressure Pulse Oximetry 100 Oxygen Delivery Mechanical Ventilation Oxygen Flow Rate Fraction of Inspired Oxygen 30 30 01/18/24 16:00 01/18/24 14:58 01/18/24 14:59 Temperature 36.7 C Pulse Rate 85 72 72 Respiratory Rate 20 22 H 22 H Blood Pressure 142/45 H Pulse Oximetry 100 Oxygen Delivery Oxygen Flow Rate Fraction of Inspired Oxygen 01/18/24 18:00 01/18/24 18:00 01/18/24 20:00 Temperature 37.1 C Pulse Rate 98 95 Respiratory Rate 22 H B
[2024-01-19 11:52] LABS: Glucose Point of Care 143 mg/dl (65-105)
[2024-01-19] MEDS: dexmedeTOMIDine 400 MCG/100 ML 400 MCG/100 ML BAG 11.11 MCG IV CONT (15:27)
[2024-01-19 16:15] LABS: Glucose Point of Care 134 mg/dl (65-105)
--- NOTE | 2024-01-19 17:58 | PC.NURSE ---
Patient complained of shortness of breath. o2 sat still 100% place on his bipap.
--- NOTE | 2024-01-19 19:40 | PM.IMPN ---
Progress Note: A&P Assessment and Plan (1) Acute respiratory failure with hypoxia: Code(s): J96.01 - Acute respiratory failure with hypoxia Status: Acute Assessment and Plan: Patient presented with generalized weakness, became obtunded in the ER, tachycardic, delete aureus, tremulous, was given 10 mg Ativan was not responding to questions and was confused, ER physician decided to intubate the patient for impending respiratory failure after discussing with the family. -patient remains intubated on CMV mode of ventilation, peep of 5, 30% FiO2 -chest x-ray and ABGs reviewed -continue bronchodilators and Ellipta - 5/5 PSV weaning trial was performed this more. Patient showed hypercarbia and respiratory acidosis. Increased work of breathing and use of abdominal muscles for breathing. He will not be able to use BiPAP if extubated. Not a candidate for extubation at this time. Changed sedation to Precedex - 01/17 chest x-ray ABG reviewed. Will try weaning trial again today 01/19/24: Extubated (2) Acute metabolic encephalopathy: Code(s): G93.41 - Metabolic encephalopathy Status: Acute Assessment and Plan: Acute metabolic encephalopathy could be multifactorial sepsis, alcohol withdrawal, hyponatremia, anemia -patient currently on Versed and fentanyl infusion. -switch sedation to Precedex -exam as above -once extubated he will require PT/OT, possible brain MRI to evaluate for weakness, currently we cannot do a brain MRI at [facility] while patient is intubated on mechanical ventilation -ammonia levels within normal limits -TSH 0.31 free T4 1.14 01/19/24: Extubated (3) Alcohol withdrawal: Code(s): F10.939 - Alcohol use, unspecified with withdrawal, unspecified Status: Acute Assessment and Plan: History of alcohol use, drinks 12 pack of beer per day, Patient was found to be delirious, obtunded, tremulous, tachycardic in the ER, patient was given Ativan after he became more delirious and confused and had to be intubated and placed on mechanical ventilation -switch sedation to Precedex (4) Alcohol dependence: Qualifiers: Substance use status: unspecified alcohol-induced disorder Qualified Code(s): F10.29 - Alcohol dependence with unspecified alcohol-induced disorder Code(s): F10.20 - Alcohol dependence, uncomplicated Status: Acute Assessment and Plan: History of alcohol dependence, patient's drinks 12 pack of beer per day -continue folic acid and thiamine -switch sedation to Precedex -will director of group counseling program patient on cessation of alcohol use, will include care coordination to provide resources for alcohol cessation (5) Chronic obstructive pulmonary disease, unspecified: Qualifiers: COPD type: unspecified COPD Qualified Code(s): J44.9 - Chronic obstructive pulmonary disease, unspecified Code(s): J44.9 - Chronic obstructive pulmonary disease, unspecified Status: Chronic Assessment and Plan: History of COPD likely secondary to being a former smoker, patient smoked 3 packs per day for 35 years -continue home Ellipta and ronchodilators -no wheezing noted, no indications for steroids at this time -currently on mechanical ventilation (6) Sepsis: Code(s): A41.9 - Sepsis, unspecified organism Status: Acute Assessment and Plan: Patient presented with elevated WBC count, lactic acidosis, tachycardia Chest x-ray and UA were negative -patient does have a hematoma of the inferior rectus -CRP is 1.4, procalcitonin level was low -Patient was started on Zosyn and cultures have been negative. Chest x-ray is clear -01/15/2024: Blood cultures have been obtained and negative till now 01/17 will DC Zosyn (7) Hematoma of muscle: Code(s): T14.8XXA - Other injury of unspecified body region, initial encounter Status: Acute Assessment and Plan: CT of the abdomen and pelvis showed 10.2 cm left inferior rectus intramuscular
[2024-01-19 21:46] LABS: Glucose Point of Care 125 mg/dl (65-105)
[2024-01-20] VITALS (91 sets, daily range): BP systolic 79–216; BP diastolic 49–157; PULSE 61–155; RESP 16–30; TEMP 36.1–37.6; O2SAT 92–100
--- NOTE | 2024-01-20 00:05 | PC.NURSE ---
01/20/24 8618 Pt removed bipap by self several times; currently refusing. Placed on 2LNC. within 10 min patient calling out and yelling for help. Placed back on bipap heart rate 122 and O2 saturation 82%. Reiterated to patient AGAIN that he needs to wear bipap overnight and if he asks to take it off I will remind him of this episode and ask him to leave it on. Patient agrees to leave mask on overnight. Bipap alarming due to high leak. Pt agrees to shaving his cadet. Once shaved mask looks too large. Destini RT switched to medium size mask.
[2024-01-20] MEDS: dexmedeTOMIDine 400 MCG/100 ML 400 MCG/100 ML BAG 12.7 MCG IV CONT (00:19)
[2024-01-20] MEDS: LORazepam INJ (*CRX) 2 MG/ML VIAL 0.5 MG IV PUSH (00:55)
[2024-01-20] MEDS: IPRATROPIUM 0.5 MG/ALBUTEROL SULFATE 2.5 MG AMPUL.NEB 3 ML INHALATION ×4 (01:00→20:14)
[2024-01-20] MEDS: ROCURONIUM BROMIDE 50 MG/5 ML VIAL 100 MG IV PUSH (01:45)
--- NOTE | 2024-01-20 01:58 | PC.NURSE ---
Patient failed bipap and vapotherm, mottling, using accessory muscles, vitals as charted, Dr Garcia evaluated patient and agrees with intubation. Dr Medeiros called and patient intubated with 7.[address] Go called to update and for sedations orders. Propofol ordered; will wean off precedex.
[2024-01-20] MEDS: MIDAZOLAM HCL (*CRX) 2 MG/2 ML VIAL 4 MG IV PUSH (02:03)
[2024-01-20] MEDS: PROPOFOL IV EMULSION 100 ML 2.67 MG IV CONT (02:05)
[2024-01-20] MEDS: ETOMIDATE 20 MG/10 ML AMPUL IV PUSH (02:10)
--- NOTE | 2024-01-20 02:17 | ED.PROCEDURE ---
Procedures Intubation Intubation Date: 01/20/24 Consent: Emergent. A pre-procedural Time-Out was completed immediately before starting the procedure and confirmed: Patient Identification, Site, Procedure, Patient Position and the Availability of Requisite Equipment: Yes Sedative: etomidate Mg given: 20 Paralytic: rocuronium Mg given: 100 Laryngoscope: other (Video Laryngoscope) ET tube size: 7.5 Tube secured depth (cm): 25 Tube secured location: lips Tube placement confirmation: visualized tube passing through cords, equal breath sounds bilaterally and no breath sounds over epigastrium Patient tolerated procedure: well Intubation complications: none
[2024-01-20] MEDS: MINERAL OIL/WHITE PETROLATUM OINTMENT 1 APPLIC EACH EYE ×3 (02:42→20:17)
--- NOTE | 2024-01-20 03:36 | PC.NURSE ---
0036 Dr Go called due to increased agitation in patient. Broke SCD, pulled out IV, is stating he cannot wear bipap. Heart rate 100s and BP 161/69. Pt cannot tolerate NC. Order received to increase precedex to 1.5 and to give 0.5mg ativan IVP. If still cannot tolerate bipap try hi-flow.
[2024-01-20] MEDS: LABETALOL HCL INJ 100 MG/20 ML VIAL 20 MG IV PUSH (04:13)
--- NOTE | 2024-01-20 04:41 | PC.NURSE ---
Labetalol given for BP 163/74 at 0400. 0435 BP 61/44. Order from doctor Abbi to hold propofol indefinitely, drop precedex drip to 0.7, and give 500ml bolus.
[2024-01-20] MEDS: SODIUM CHLORIDE 0.9% IV 500 ML 999 ML IV CONT (04:51)
[2024-01-20 05:43] LABS: Alveolar/Arterial O2 Gradient 99.1 mmHg; Base Excess ABG -1.2 mEq/l (+/-2.0); Carboxyhemoglobin 0.3 % THb (0-2.0); Fractional Inspired Oxygen 60 %; HCO3 ABG 24.8 mEq/l (22.0-26.0); Methemoglobin ABG 0.1 %THb (0-1.5); Oxygen Content ABG 15.9 %vol (16.0-22.0); Oxygen Saturation ABG 99.6 % (95.0-100.0); Oxyhemoglobin 99.1 % THb (90.0-100.0); PCO2 ABG 47.2 mmHg (35.0-45.0); PO2 ABG 276.8 mmHg (80.0-100.0); PO2 FiO2 Ratio Arterial Blood 4.61 %; Reduced Hemoglobin 0.5 %THb (0-5.0); Total Hemoglobin 10.9 g/dL (12.0-18.0); pH ABG 7.338 (7.350-7.450)
[2024-01-20 05:44] LABS: Arterial Blood Gas PEEP 5 cmH2O; Arterial Blood Gas Tidal Volume 450 ml; Arterial Blood Gas Vent Mode CMV; Arterial Blood Gas Ventilator rate 18 /MIN; Device VENTILATOR; Modified Allen's Test Pass; Site Drawn RIGHT RADIAL
[2024-01-20] MEDS: CENTRAL LINE FLUSH 20 ML IV PUSH (05:45)
[2024-01-20] MEDS: CENTRAL LINE FLUSH 10 ML IV PUSH ×3 (05:45→20:17)
[2024-01-20] MEDS: dexmedeTOMIDine 400 MCG/100 ML 400 MCG/100 ML BAG 11.11 MCG IV CONT ×3 (05:48→23:08)
[2024-01-20 06:08] LABS: Basophils Percent Auto 0.2 % (0.2-1.2); Eosinophils Absolute Auto 0.1 K/mm3 (0-0.3); Eosinophils Percent Auto 0.8 % (0-4.4); Hemoglobin 9.1 g/dL (14.0-18.0); Immature Granulocyte Absolute 0.07 K/mm3 (0.00-0.031); Immature Granulocyte Percent A 0.6 % (0-0.5); Lymphocytes Absolute Auto 0.94 K/mm3 (0.9-3.2); Lymphocytes Percent Auto 8.7 % (18.3-44.2); Mean Corpuscular HGB Conc 32.5 g/dl (32-36); Mean Corpuscular Hemoglobin 33.3 pg (26-34); Mean Corpuscular Volume 102.6 fl (80-100); Mean Platelet Volume 9.1 fl (7.4-10.4); Monocytes Absolute Auto 0.6 K/mm3 (0.1-0.6); Monocytes Percent Auto 5.1 % (2.6-8.5); Neutrophils Absolute Auto 9.2 K/mm3 (1.3-6.7); Neutrophils Percent Auto 84.6 % (45.5-73.1); Platelet Count Result 111 k/mm3 (150-375); Red Blood Count 2.73 M/mm3 (4.6-6.20); Red Cell Distribution Width 13.9 % (11.5-14.5); White Blood Count 10.8 K/mm3 (4.5-10.0)
[2024-01-20 06:18] LABS: Alanine Aminotransferase 27 U/L (6-50); Albumin Level 3.9 g/dL (3.5-5.1); Alkaline Phosphatase 69 U/L (38-126); Anion Gap 4 mmol/L (4-12); Aspartate Amino Transferase 46 U/L (17-59); Bilirubin,Total 1.1 mg/dL (0.2-1.3); Blood Urea Nitrogen 13 mg/dL (9-20); Calcium 8.9 mg/dL (8.4-10.2); Carbon Dioxide 29 mmol/L (22-30); Chloride 100 mmol/L (98-107); Estimated CRCL calculation 88 ml/min; Estimated Glomerular Filt Rate > 60; Glucose 118 mg/dL (65-110); Magnesium 1.7 mg/dL (1.6-2.3); Potassium 5.5 mmol/L (3.4-5.0); Sodium 133 mmol/L (137-145); Triglycerides 75 mg/dL (<150)
--- NOTE | 2024-01-20 06:35 | PC.NURSE ---
propofol increased to 10 due t pt reaching to pull tube out
--- NOTE | 2024-01-20 06:43 | PC.NURSE ---
propofol put on hold due to low BP 70/45.
--- NOTE | 2024-01-20 08:22 | WPDINTPN ---
Progress Note: A&P Assessment and Plan (1) Acute respiratory failure with hypoxia: Code(s): J96.01 - Acute respiratory failure with hypoxia Status: Acute Assessment and Plan: Patient presented with generalized weakness, became obtunded in the ER, tachycardic, delete aureus, tremulous, was given 10 mg Ativan was not responding to questions and was confused, ER physician decided to intubate the patient for impending respiratory failure after discussing with the family. Appears to have severe COPD at baseline. He is on home oxygen 01/15 intubated 01/16-01/17 12/31 PSV weaning trial was performed. Patient showed hypercarbia and respiratory acidosis. Increased work of breathing and use of abdominal muscles for breathing. He will not be able to use BiPAP if extubated. Not a candidate for extubation at this time. Changed sedation to Precedex 01/18 extubated and reintubated due to inability to tolerate BiPAP and respiratory distress -patient remains intubated on CMV mode of ventilation -ABG reviewed. Increase PEEP to 8 decrease FiO2 to 35% and decrease rate to 16 -chest x-ray reviewed -continue bronchodilators -no wheezing on exam hence not on steroids (2) Acute metabolic encephalopathy: Code(s): G93.41 - Metabolic encephalopathy Status: Acute Assessment and Plan: Acute metabolic encephalopathy could be multifactorial sepsis, alcohol withdrawal, hyponatremia, anemia -patient currently on Versed and fentanyl infusion. -switch sedation to Precedex -exam as above -once extubated he will require PT/OT, possible brain MRI to evaluate for weakness, currently we cannot do a brain MRI at [facility] while patient is intubated on mechanical ventilation -ammonia levels within normal limits -TSH 0.31 free T4 1.14 (3) Alcohol withdrawal: Code(s): F10.939 - Alcohol use, unspecified with withdrawal, unspecified Status: Acute Assessment and Plan: History of alcohol use, drinks 12 pack of beer per day, Patient was found to be delirious, obtunded, tremulous, tachycardic in the ER, patient was given Ativan after he became more delirious and confused and had to be intubated and placed on mechanical ventilation -continue Precedex (4) Alcohol dependence: Qualifiers: Substance use status: unspecified alcohol-induced disorder Qualified Code(s): F10.29 - Alcohol dependence with unspecified alcohol-induced disorder Code(s): F10.20 - Alcohol dependence, uncomplicated Status: Acute Assessment and Plan: History of alcohol dependence, patient's drinks 12 pack of beer per day -continue folic acid and thiamine -continue Precedex -will funeral planning counselor patient on cessation of alcohol use, will include care coordination to provide resources for alcohol cessation (5) Chronic obstructive pulmonary disease, unspecified: Qualifiers: COPD type: unspecified COPD Qualified Code(s): J44.9 - Chronic obstructive pulmonary disease, unspecified Code(s): J44.9 - Chronic obstructive pulmonary disease, unspecified Status: Chronic Assessment and Plan: History of COPD likely secondary to being a former smoker, patient smoked 3 packs per day for 35 years -continue home Ellipta and ronchodilators -no wheezing noted, no indications for steroids at this time -currently on mechanical ventilation (6) Sepsis: Code(s): A41.9 - Sepsis, unspecified organism Status: Acute Assessment and Plan: Patient presented with elevated WBC count, lactic acidosis, tachycardia Chest x-ray and UA were negative -patient does have a hematoma of the inferior rectus -CRP is 1.4, procalcitonin level was low -Patient was started on Zosyn and cultures have been negative. Chest x-ray is clear -01/15/2024: Blood cultures have been obtained and negative till now 01/17 will DC Zosyn (7) Hematoma of muscle: Code(s): T14.8XXA - Other injury of unspecified body region, initial encounter
[2024-01-20] MEDS: levETIRAcetam 500MG/NACL 100ML 500 MG/100 ML BAG 400 MG IVPB ×2 (08:23→20:16)
[2024-01-20] MEDS: FOLIC ACID 1 MG/0.2 ML INJ IV PUSH (08:25)
[2024-01-20] MEDS: THIAMINE HCL 200 MG/2 ML VIAL 100 MG IV PUSH (08:25)
[2024-01-20] MEDS: PANTOPRAZOLE SODIUM IV 40 MG VIAL IV PUSH ×2 (08:25→20:16)
[2024-01-20] MEDS: ATORVASTATIN 10 MG TABLET PO (08:53)
[2024-01-20] MEDS: SODIUM ZIRCONIUM CYCLOSILICATE 10 GM POWD.PACK PO (08:53)
[2024-01-20] MEDS: busPIRone HCL 10 MG TABLET PO ×2 (08:53→20:17)
[2024-01-20] MEDS: MAGNESIUM SULF 2 GM/WATER 50ML 2 GM/50 ML BAG IVPB (08:53)
--- NOTE | 2024-01-20 11:14 | PCNFU ---
Nutrition Follow-Up Complete: Increased protein energy needs related to mechanical ventilation as evidenced by need for full tube feeding Goal: Meet estimated protein energy needs Patient will continue current goal. Pt current nutrition is Vital AF 1.2 at 60 ml/hr. Last recorded weight is 92.5 kg, up from 89 kg 01/18. Bowel Motility: +BM reported 01/19 Labs Reviewed:Glu 118, Na 133, Hct 28.0,Hgb 9.1 Meds Noted:Propofol 20 egcg=078 kcals, Precedex, Keppra, Lovenox, Folic Acid, Thiamine. Skin: WNL Additional Notes: Patient reintubated today. Tube feedings restarting with Vital AF 1.2 goal rate at 60 ml/hr. Total Nutrition: 1866 kcal/99 gm protein/1070 ml water. Flush 30 ml q 4 hours. Agree with diet orders. Monitoring labs, vital signs, orders, weights, output, tube feeding tolerance Follow daily in rounds, reassess Tuesdays and Fridays
[2024-01-20 12:11] LABS: Glucose Point of Care 98 mg/dl (65-105)
[2024-01-20] MEDS: PROPOFOL IV EMULSION 100 ML 13.35 MG IV CONT (14:09)
[2024-01-20 18:18] LABS: Glucose Point of Care 137 mg/dl (65-105)
[2024-01-20 18:20] LABS: Anion Gap 5 mmol/L (4-12); Blood Urea Nitrogen 20 mg/dL (9-20); Carbon Dioxide 28 mmol/L (22-30); Chloride 99 mmol/L (98-107); Estimated CRCL calculation 79 ml/min; Estimated Glomerular Filt Rate > 60; Glucose 137 mg/dL (65-110); Potassium 4.3 mmol/L (3.4-5.0); Sodium 132 mmol/L (137-145)
[2024-01-20] MEDS: PROPOFOL IV EMULSION 100 ML 16.02 MG IV CONT (20:12)
[2024-01-21] VITALS (51 sets, daily range): BP systolic 85–141; BP diastolic 43–79; PULSE 57–118; RESP 15–28; TEMP 36.2–36.8; O2SAT 92–100
[2024-01-21 00:20] LABS: Glucose Point of Care 118 mg/dl (65-105)
[2024-01-21] MEDS: IPRATROPIUM 0.5 MG/ALBUTEROL SULFATE 2.5 MG AMPUL.NEB 3 ML INHALATION ×4 (02:01→20:16)
[2024-01-21] MEDS: PROPOFOL IV EMULSION 100 ML 16.02 MG IV CONT ×2 (03:00→16:03)
--- NOTE | 2024-01-21 05:00 | PC.NURSE ---
Daily weight obtained after removing patient from the bed with maxi kim lift and zeroing bed related to discrepancies in weight since admission.
[2024-01-21 05:13] LABS: Alveolar/Arterial O2 Gradient 74.4 mmHg; Base Excess ABG 4.8 mEq/l (+/-2.0); Fractional Inspired Oxygen 30 %; HCO3 ABG 29.5 mEq/l (22.0-26.0); Oxygen Content ABG 11.4 %vol (16.0-22.0); Oxygen Saturation ABG 96.8 % (95.0-100.0); Oxyhemoglobin 95.6 % THb (90.0-100.0); PO2 ABG 86.6 mmHg (80.0-100.0); PO2 FiO2 Ratio Arterial Blood 2.89 %; Reduced Hemoglobin 3.4 %THb (0-5.0); Total Hemoglobin 8.4 g/dL (12.0-18.0); pH ABG 7.435 (7.350-7.450)
[2024-01-21 05:14] LABS: Device VENTILATOR; Modified Allen's Test Pass; Site Drawn RIGHT RADIAL
[2024-01-21 05:15] LABS: Arterial Blood Gas PEEP 8 cmH2O; Arterial Blood Gas Tidal Volume 450 ml; Arterial Blood Gas Vent Mode CMV; Arterial Blood Gas Ventilator rate 16 /MIN
[2024-01-21] MEDS: CENTRAL LINE FLUSH 10 ML IV PUSH ×3 (05:25→20:27)
[2024-01-21 05:59] LABS: Basophils Percent Auto 0.4 % (0.2-1.2); Eosinophils Absolute Auto 0.1 K/mm3 (0-0.3); Eosinophils Percent Auto 1.3 % (0-4.4); Hematocrit 23.8 % (42.0-52.0); Hemoglobin 7.8 g/dL (14.0-18.0); Immature Granulocyte Absolute 0.02 K/mm3 (0.00-0.031); Immature Granulocyte Percent A 0.4 % (0-0.5); Immature Platelet Fraction Pct 2.8 % (0.9-11.2); Lymphocytes Absolute Auto 0.75 K/mm3 (0.9-3.2); Lymphocytes Percent Auto 16.2 % (18.3-44.2); Mean Corpuscular HGB Conc 32.8 g/dl (32-36); Mean Corpuscular Hemoglobin 33.5 pg (26-34); Mean Corpuscular Volume 102.1 fl (80-100); Mean Platelet Volume 8.9 fl (7.4-10.4); Monocytes Absolute Auto 0.3 K/mm3 (0.1-0.6); Monocytes Percent Auto 6.5 % (2.6-8.5); Neutrophils Absolute Auto 3.5 K/mm3 (1.3-6.7); Neutrophils Percent Auto 75.2 % (45.5-73.1); Platelet Count Result 102 k/mm3 (150-375); Red Blood Count 2.33 M/mm3 (4.6-6.20); Red Cell Distribution Width 13.4 % (11.5-14.5); White Blood Count 4.6 K/mm3 (4.5-10.0)
[2024-01-21 06:07] LABS: Alanine Aminotransferase 22 U/L (6-50); Albumin Level 3.2 g/dL (3.5-5.1); Alkaline Phosphatase 67 U/L (38-126); Anion Gap 2 mmol/L (4-12); Aspartate Amino Transferase 34 U/L (17-59); Blood Urea Nitrogen 24 mg/dL (9-20); Calcium 9.1 mg/dL (8.4-10.2); Carbon Dioxide 30 mmol/L (22-30); Chloride 101 mmol/L (98-107); Estimated CRCL calculation 79 ml/min; Estimated Glomerular Filt Rate > 60; Glucose 133 mg/dL (65-110); Magnesium 1.9 mg/dL (1.6-2.3); Potassium 4.4 mmol/L (3.4-5.0); Sodium 133 mmol/L (137-145)
[2024-01-21] MEDS: DOCUSATE SODIUM LIQ 100 MG/10 ML UDC FEED TUBE ×2 (08:01→20:26)
[2024-01-21] MEDS: MINERAL OIL/WHITE PETROLATUM OINTMENT 1 APPLIC EACH EYE ×2 (08:01→20:26)
[2024-01-21] MEDS: THIAMINE HCL 100 MG TABLET FEED TUBE (08:01)
[2024-01-21] MEDS: FOLIC ACID 1 MG TABLET FEED TUBE (08:01)
[2024-01-21] MEDS: polyethylene glycoL 3350 17 GM POWD.PACK PO (08:01)
[2024-01-21] MEDS: PANTOPRAZOLE SODIUM IV 40 MG VIAL IV PUSH ×2 (08:01→20:26)
[2024-01-21] MEDS: dexmedeTOMIDine 400 MCG/100 ML 400 MCG/100 ML BAG 11.11 MCG IV CONT ×2 (08:02→16:01)
[2024-01-21] MEDS: levETIRAcetam 500MG/NACL 100ML 500 MG/100 ML BAG 400 MG IVPB ×2 (08:03→20:25)
[2024-01-21] MEDS: busPIRone HCL 10 MG TABLET PO ×2 (08:03→20:26)
[2024-01-21] MEDS: ATORVASTATIN 10 MG TABLET PO (08:03)
--- NOTE | 2024-01-21 08:22 | WPDINTPN ---
Progress Note: A&P Assessment and Plan (1) Acute respiratory failure with hypoxia: Code(s): J96.01 - Acute respiratory failure with hypoxia Status: Acute Assessment and Plan: Patient presented with generalized weakness, became obtunded in the ER, tachycardic, delete aureus, tremulous, was given 10 mg Ativan was not responding to questions and was confused, ER physician decided to intubate the patient for impending respiratory failure after discussing with the family. Appears to have severe COPD at baseline. He is on home oxygen 01/15 intubated 01/16-01/17 12/31 PSV weaning trial was performed. Patient showed hypercarbia and respiratory acidosis. Increased work of breathing and use of abdominal muscles for breathing. He will not be able to use BiPAP if extubated. Not a candidate for extubation at this time. Changed sedation to Precedex 01/18 extubated and reintubated due to inability to tolerate BiPAP and respiratory distress -patient remains intubated on CMV mode of ventilation -ABG reviewed. Currently PEEP 8 and FiO2 to 35% respiratory rate rate to 16 -chest x-ray reviewed -continue bronchodilators -no wheezing on exam hence not on steroids -will attempt PSV weaning trial again today after sedation holiday (2) Acute metabolic encephalopathy: Code(s): G93.41 - Metabolic encephalopathy Status: Acute Assessment and Plan: Acute metabolic encephalopathy could be multifactorial sepsis, alcohol withdrawal, hyponatremia, anemia -patient currently on Versed and fentanyl infusion. -switch sedation to Precedex -exam as above -once extubated he will require PT/OT, possible brain MRI to evaluate for weakness, currently we cannot do a brain MRI at [facility] while patient is intubated on mechanical ventilation -ammonia levels within normal limits -TSH 0.31 free T4 1.14 (3) Alcohol withdrawal: Code(s): F10.939 - Alcohol use, unspecified with withdrawal, unspecified Status: Acute Assessment and Plan: History of alcohol use, drinks 12 pack of beer per day, Patient was found to be delirious, obtunded, tremulous, tachycardic in the ER, patient was given Ativan after he became more delirious and confused and had to be intubated and placed on mechanical ventilation -continue Precedex (4) Alcohol dependence: Qualifiers: Substance use status: unspecified alcohol-induced disorder Qualified Code(s): F10.29 - Alcohol dependence with unspecified alcohol-induced disorder Code(s): F10.20 - Alcohol dependence, uncomplicated Status: Acute Assessment and Plan: History of alcohol dependence, patient's drinks 12 pack of beer per day -continue folic acid and thiamine -continue Precedex -will counselor camp patient on cessation of alcohol use, will include care coordination to provide resources for alcohol cessation (5) Chronic obstructive pulmonary disease, unspecified: Qualifiers: COPD type: unspecified COPD Qualified Code(s): J44.9 - Chronic obstructive pulmonary disease, unspecified Code(s): J44.9 - Chronic obstructive pulmonary disease, unspecified Status: Chronic Assessment and Plan: History of COPD likely secondary to being a former smoker, patient smoked 3 packs per day for 35 years -continue home Ellipta and ronchodilators -no wheezing noted, no indications for steroids at this time -currently on mechanical ventilation (6) Sepsis: Code(s): A41.9 - Sepsis, unspecified organism Status: Acute Assessment and Plan: Patient presented with elevated WBC count, lactic acidosis, tachycardia Chest x-ray and UA were negative -patient does have a hematoma of the inferior rectus -CRP is 1.4, procalcitonin level was low -Patient was started on Zosyn and cultures have been negative. Chest x-ray is clear -01/15/2024: Blood cultures have been obtained and negative till now 01/17 will DC Zosyn (7) Hematoma of muscle: Code(s): T14.8XX
--- NOTE | 2024-01-21 09:16 | PM.IMPN ---
Progress Note: A&P Assessment and Plan (1) Acute respiratory failure with hypoxia: Code(s): J96.01 - Acute respiratory failure with hypoxia Status: Acute Assessment and Plan: Patient presented with generalized weakness, feeling unwell and SOB. CXR showing scarring but no acute findings. He became became obtunded, delirious, tremulous and tachycardic despite Ativan 10mg total. He was intubated in ED and central line placed on 01/15/24 and admitted to ICU. [place] related to COPD exacerbation, alcohol w/d and possibly sepsis. Was able to be extubated 01/18 but required reintubation due to inability to tolerate BiPAP and respiratory distress the next day Patient remains intubated. ABG 7.43/45/86 on MV. CXR showing emphysema and scarring but no acute findings. On breathing trial. Appreciate straight cutter input (2) Shock: Code(s): R57.9 - Shock, unspecified Status: Acute Assessment and Plan: Patient developed HoTN in ED requiring Levophed Levophed weaned off 01/16. Phenylephrine started 01/19 but weaned off qickly BP soft but stable. Follow (3) Acute metabolic encephalopathy: Code(s): G93.41 - Metabolic encephalopathy Status: Acute Assessment and Plan: Acute metabolic encephalopathy felt multifactorial from sepsis, alcohol withdrawal, hyponatremia, anemia Head CT showing no acute process. Patient currently on Precedex B12/foalte normal. TSH low at 0.3 but normal FT4. Following commands. Awake and alert Monitor (4) Alcohol withdrawal: Code(s): F10.939 - Alcohol use, unspecified with withdrawal, unspecified Status: Acute Assessment and Plan: History of alcohol abuse Patient was delirious in the ER with worsening sx despite Ativan requiring intubation -continue Precedex and wean off as tolerated (5) Alcohol dependence: Qualifiers: Substance use status: unspecified alcohol-induced disorder Qualified Code(s): F10.29 - Alcohol dependence with unspecified alcohol-induced disorder Code(s): F10.20 - Alcohol dependence, uncomplicated Status: Acute Assessment and Plan: History of alcohol dependence, patient's drinks 12 pack of beer per day Continue folic acid and thiamine Continue Precedex Will tariff counsel patient on cessation of alcohol use, will include care coordination to provide resources for alcohol cessation once extubated (6) Chronic obstructive pulmonary disease, unspecified: Qualifiers: COPD type: unspecified COPD Qualified Code(s): J44.9 - Chronic obstructive pulmonary disease, unspecified Code(s): J44.9 - Chronic obstructive pulmonary disease, unspecified Status: Chronic Assessment and Plan: History of COPD secondary to being a former smoker, patient smoked 3 packs per day for 35 years Continue home Ellipta. Continue bronchodilators No wheezing noted so no indications for steroids at this time Remains on mechanical ventilation (7) Sepsis: Code(s): A41.9 - Sepsis, unspecified organism Status: Acute Assessment and Plan: Patient presented with elevated WBC count, lactic acidosis, tachycardia: sepsis vs SIRS Chest x-ray and UA were negative BCx negative Patient does have a hematoma of the inferior rectus probably related to a fall prior to admission CRP is 1.4, procalcitonin level was low Patient was started on Zosyn and cultures have been negative. Chest x-ray has remained clear Zosyn stopped 01/17 Follow off abx (8) Hematoma of muscle: Code(s): T14.8XXA - Other injury of unspecified body region, initial encounter Status: Acute Assessment and Plan: CT of the abdomen and pelvis showed 10.2 cm left inferior rectus intramuscular hematoma w/o active extravasation Patient also anemic so consider at least partial acute blood loss He was not on any anticoagulation on admission (ASA only) -continue to monitor (9) Anemia: Code(s):
--- NOTE | 2024-01-21 10:18 | PCFNICU ---
ICU Rounding Note: Pt current nutrition is Vital AF 1.2 @ 60ml/hr. Nutrition recommendation: continue with current plan of care Last recorded weight is 88.6 kg. Bowel Motility: +BM 01/19 Labs Reviewed: Hgb:7.8, HCT:23.8, Alb:3.2, NA:133, BUN:24, Glu:137 Meds Noted: novolog, protonix, thiamin, folic acid, zofran Skin: no skin issues noted Additional Notes: Pt reintubated, propofol off at this time, Tube feedings resumed, running at goal and pt is tolerating. Total Nutrition: 1866 kcal/99 gm protein/1070 ml water. Flush 30 ml q 4 hours. Agree with diet orders. Following daily in ICU rounds. Monitoring labs, vital signs, orders, weights, output, tube feeding tolerance Follow daily in rounds, reassess Tuesdays and Fridays.
[2024-01-21 12:25] LABS: Glucose Point of Care 125 mg/dl (65-105)
[2024-01-21 13:47] LABS: IFOB Positive Control Positive; Immunochemical Fecal Occult Bl Positive (N)
[2024-01-21 18:22] LABS: Glucose Point of Care 149 mg/dl (65-105)
[2024-01-21] MEDS: PROPOFOL IV EMULSION 100 ML 18.69 MG IV CONT (22:58)
[2024-01-21 23:47] LABS: Glucose Point of Care 98 mg/dl (65-105)
[2024-01-22] VITALS (67 sets, daily range): BP systolic 102–192; BP diastolic 48–83; PULSE 53–112; RESP 15–25; TEMP 35.9–37.1; O2SAT 91–100
[2024-01-22] MEDS: dexmedeTOMIDine 400 MCG/100 ML 400 MCG/100 ML BAG 11.11 MCG IV CONT (01:23)
[2024-01-22] MEDS: IPRATROPIUM 0.5 MG/ALBUTEROL SULFATE 2.5 MG AMPUL.NEB 3 ML INHALATION ×4 (01:52→20:16)
[2024-01-22] MEDS: PROPOFOL IV EMULSION 100 ML 18.69 MG IV CONT (03:36)
--- NOTE | 2024-01-22 04:45 | PC.NURSE ---
Significant difference noted by this RN in dosing weights for precedex gtt versus propofol. Contacted pharmacist who updated precedex dosing with current weight. Emar and IV pump updated by this RN with Melissa JANE as witness to reflect current weight. Per updated weight, patient has actually been receiving 0.5 mcg/kg/hr rather than 0.7 mcg/kg/hr since the mls/hr remains the same at 11.1 ml/hr.
[2024-01-22 05:38] LABS: Alveolar/Arterial O2 Gradient 67.7 mmHg; Base Excess ABG 2.2 mEq/l (+/-2.0); Carboxyhemoglobin 1.1 % THb (0-2.0); Device VENTILATOR; Fractional Inspired Oxygen 30 %; Methemoglobin ABG 0.2 %THb (0-1.5); Modified Allen's Test Pass; Oxygen Content ABG 12.3 %vol (16.0-22.0); Oxygen Saturation ABG 96.3 % (95.0-100.0); Oxyhemoglobin 94.3 % THb (90.0-100.0); PCO2 ABG 49.7 mmHg (35.0-45.0); PO2 ABG 87.8 mmHg (80.0-100.0); PO2 FiO2 Ratio Arterial Blood 2.93 %; Reduced Hemoglobin 4.4 %THb (0-5.0); Site Drawn RIGHT RADIAL; Total Hemoglobin 9.2 g/dL (12.0-18.0); pH ABG 7.369 (7.350-7.450)
[2024-01-22 05:39] LABS: Arterial Blood Gas PEEP 8 cmH2O; Arterial Blood Gas Tidal Volume 450 ml; Arterial Blood Gas Vent Mode CMV; Arterial Blood Gas Ventilator rate 16 /MIN
[2024-01-22 06:16] LABS: Basophils Percent Auto 0.5 % (0.2-1.2); Eosinophils Absolute Auto 0.1 K/mm3 (0-0.3); Eosinophils Percent Auto 1.3 % (0-4.4); Hematocrit 25.9 % (42.0-52.0); Hemoglobin 8.3 g/dL (14.0-18.0); Immature Granulocyte Absolute 0.02 K/mm3 (0.00-0.031); Immature Granulocyte Percent A 0.5 % (0-0.5); Immature Platelet Fraction Pct 3.1 % (0.9-11.2); Lymphocytes Absolute Auto 0.66 K/mm3 (0.9-3.2); Lymphocytes Percent Auto 17.4 % (18.3-44.2); Mean Corpuscular Hemoglobin 33.2 pg (26-34); Mean Corpuscular Volume 103.6 fl (80-100); Mean Platelet Volume 9.7 fl (7.4-10.4); Monocytes Absolute Auto 0.3 K/mm3 (0.1-0.6); Monocytes Percent Auto 7.1 % (2.6-8.5); Neutrophils Absolute Auto 2.8 K/mm3 (1.3-6.7); Neutrophils Percent Auto 73.2 % (45.5-73.1); Platelet Count Result 109 k/mm3 (150-375); Red Cell Distribution Width 13.3 % (11.5-14.5); White Blood Count 3.8 K/mm3 (4.5-10.0)
[2024-01-22 06:24] LABS: Alanine Aminotransferase 21 U/L (6-50); Albumin Level 3.4 g/dL (3.5-5.1); Alkaline Phosphatase 62 U/L (38-126); Anion Gap 1 mmol/L (4-12); Aspartate Amino Transferase 32 U/L (17-59); Blood Urea Nitrogen 21 mg/dL (9-20); Calcium 9.1 mg/dL (8.4-10.2); Carbon Dioxide 33 mmol/L (22-30); Chloride 103 mmol/L (98-107); Estimated CRCL calculation 100 ml/min; Estimated Glomerular Filt Rate > 60; Glucose 125 mg/dL (65-110); Magnesium 1.6 mg/dL (1.6-2.3); Sodium 137 mmol/L (137-145); Triglycerides 82 mg/dL (<150)
[2024-01-22] MEDS: CENTRAL LINE FLUSH 10 ML IV PUSH ×3 (06:40→20:16)
[2024-01-22] MEDS: ATORVASTATIN 10 MG TABLET PO (07:59)
[2024-01-22] MEDS: polyethylene glycoL 3350 17 GM POWD.PACK PO (07:59)
[2024-01-22] MEDS: THIAMINE HCL 100 MG TABLET FEED TUBE (07:59)
[2024-01-22] MEDS: busPIRone HCL 10 MG TABLET PO ×2 (07:59→20:13)
[2024-01-22] MEDS: PANTOPRAZOLE SODIUM IV 40 MG VIAL IV PUSH ×2 (07:59→20:14)
[2024-01-22] MEDS: FOLIC ACID 1 MG TABLET FEED TUBE (07:59)
[2024-01-22] MEDS: DOCUSATE SODIUM LIQ 100 MG/10 ML UDC FEED TUBE (07:59)
[2024-01-22] MEDS: MINERAL OIL/WHITE PETROLATUM OINTMENT 1 APPLIC EACH EYE ×2 (08:00→20:16)
[2024-01-22] MEDS: levETIRAcetam 500MG/NACL 100ML 500 MG/100 ML BAG 400 MG IVPB ×2 (08:00→20:15)
--- NOTE | 2024-01-22 08:24 | WPDINTPN ---
Progress Note: A&P Assessment and Plan (1) Acute respiratory failure with hypoxia: Code(s): J96.01 - Acute respiratory failure with hypoxia Status: Acute Assessment and Plan: Patient presented with generalized weakness, became obtunded in the ER, tachycardic, delete aureus, tremulous, was given 10 mg Ativan was not responding to questions and was confused, ER physician decided to intubate the patient for impending respiratory failure after discussing with the family. Appears to have severe COPD at baseline. He is on home oxygen 01/15 intubated 01/16-01/17 12/31 PSV weaning trial was performed. Patient showed hypercarbia and respiratory acidosis. Increased work of breathing and use of abdominal muscles for breathing. He will not be able to use BiPAP if extubated. Not a candidate for extubation at this time. Changed sedation to Precedex 01/18 extubated and reintubated due to inability to tolerate BiPAP and respiratory distress 01/20 failed PSV weaning trial -patient remains intubated on CMV mode of ventilation -ABG reviewed. Currently PEEP 8 and FiO2 to 35% respiratory rate rate to 16 -chest x-ray reviewed. Withdraw ET tube by 1 cm -continue bronchodilators -no wheezing on exam hence not on steroids -will attempt PSV weaning trial again today after sedation holiday (2) Acute metabolic encephalopathy: Code(s): G93.41 - Metabolic encephalopathy Status: Acute Assessment and Plan: Acute metabolic encephalopathy could be multifactorial sepsis, alcohol withdrawal, hyponatremia, anemia -patient currently on Versed and fentanyl infusion. -switch sedation to Precedex -exam as above -once extubated he will require PT/OT, possible brain MRI to evaluate for weakness, currently we cannot do a brain MRI at [facility] while patient is intubated on mechanical ventilation -ammonia levels within normal limits -TSH 0.31 free T4 1.14 (3) Alcohol withdrawal: Code(s): F10.939 - Alcohol use, unspecified with withdrawal, unspecified Status: Acute Assessment and Plan: History of alcohol use, drinks 12 pack of beer per day, Patient was found to be delirious, obtunded, tremulous, tachycardic in the ER, patient was given Ativan after he became more delirious and confused and had to be intubated and placed on mechanical ventilation -continue Precedex (4) Alcohol dependence: Qualifiers: Substance use status: unspecified alcohol-induced disorder Qualified Code(s): F10.29 - Alcohol dependence with unspecified alcohol-induced disorder Code(s): F10.20 - Alcohol dependence, uncomplicated Status: Acute Assessment and Plan: History of alcohol dependence, patient's drinks 12 pack of beer per day -continue folic acid and thiamine -continue Precedex -will substance abuse counselor patient on cessation of alcohol use, will include care coordination to provide resources for alcohol cessation (5) Chronic obstructive pulmonary disease, unspecified: Qualifiers: COPD type: unspecified COPD Qualified Code(s): J44.9 - Chronic obstructive pulmonary disease, unspecified Code(s): J44.9 - Chronic obstructive pulmonary disease, unspecified Status: Chronic Assessment and Plan: History of COPD likely secondary to being a former smoker, patient smoked 3 packs per day for 35 years -continue home Ellipta and ronchodilators -no wheezing noted, no indications for steroids at this time -currently on mechanical ventilation (6) Sepsis: Code(s): A41.9 - Sepsis, unspecified organism Status: Acute Assessment and Plan: Patient presented with elevated WBC count, lactic acidosis, tachycardia Chest x-ray and UA were negative -patient does have a hematoma of the inferior rectus -CRP is 1.4, procalcitonin level was low -Patient was started on Zosyn and cultures have been negative. Chest x-ray is clear -01/15/2024: Blood cultures have been obtained and negative till now 01/17 will D
--- NOTE | 2024-01-22 08:49 | PM.IMPN ---
Progress Note: A&P Assessment and Plan (1) Acute respiratory failure with hypoxia: Code(s): J96.01 - Acute respiratory failure with hypoxia Status: Acute Assessment and Plan: Patient presented with generalized weakness, feeling unwell and SOB. CXR showing scarring but no acute findings. He became obtunded, delirious, tremulous and tachycardic despite Ativan 10mg total. He was intubated and central line placed in ED (01/14) and admitted to ICU. [place] related to COPD exacerbation, alcohol w/d and possibly sepsis. Was able to be extubated 01/18 but required reintubation due to inability to tolerate BiPAP and respiratory distress the next day Patient remains intubated. ABG 7.37/49.7/88 on MV. CXR showing emphysema and scarring but no acute findings. Was on breathing trial but held due to increased WOB and cough. Appreciate rectangular tank cooper input (2) Shock: Code(s): R57.9 - Shock, unspecified Status: Acute Assessment and Plan: Patient developed HoTN in ED requiring Levophed felt related to hypovolemia Levophed weaned off 01/16. Phenylephrine started 01/19 but weaned off quickly BP soft but stable. Follow (3) Acute metabolic encephalopathy: Code(s): G93.41 - Metabolic encephalopathy Status: Acute Assessment and Plan: Acute metabolic encephalopathy felt multifactorial from sepsis, alcohol withdrawal, hyponatremia, anemia Head CT showing no acute process. B12/folate normal. TSH low at 0.3 but normal FT4. Patient currently on Precedex Following commands. Awake and alert Monitor (4) Alcohol withdrawal: Code(s): F10.939 - Alcohol use, unspecified with withdrawal, unspecified Status: Acute Assessment and Plan: History of alcohol abuse Patient was delirious in the ER with worsening sx despite Ativan requiring intubation -continue Precedex and wean off as tolerated (5) Alcohol dependence: Qualifiers: Substance use status: unspecified alcohol-induced disorder Qualified Code(s): F10.29 - Alcohol dependence with unspecified alcohol-induced disorder Code(s): F10.20 - Alcohol dependence, uncomplicated Status: Acute Assessment and Plan: History of alcohol dependence, patient's drinks 12 pack of beer per day Continue folic acid and thiamine Continue Precedex Will counsellors patient on cessation of alcohol use, will include care coordination to provide resources for alcohol cessation once extubated (6) Chronic obstructive pulmonary disease, unspecified: Qualifiers: COPD type: unspecified COPD Qualified Code(s): J44.9 - Chronic obstructive pulmonary disease, unspecified Code(s): J44.9 - Chronic obstructive pulmonary disease, unspecified Status: Chronic Assessment and Plan: History of COPD secondary to being a former smoker, patient smoked 3 packs per day for 35 years Continue home Ellipta. Continue bronchodilators No wheezing but course BS today. No indications for steroids at this time Remains on mechanical ventilation (7) Sepsis: Code(s): A41.9 - Sepsis, unspecified organism Status: Acute Assessment and Plan: Patient presented with elevated WBC count, lactic acidosis, tachycardia: sepsis vs SIRS Chest x-ray and UA were negative BCx negative Patient does have a hematoma of the inferior rectus probably related to a fall prior to admission CRP is 1.4, procalcitonin level was low Patient was started on Zosyn and cultures have been negative. Chest x-ray has remained clear Zosyn stopped 01/17 Suspect patietn with SIRS Follow off abx (8) Hematoma of muscle: Code(s): T14.8XXA - Other injury of unspecified body region, initial encounter Status: Acute Assessment and Plan: CT of the abdomen and pelvis showed 10.2 cm left inferior rectus intramuscular hematoma w/o active extravasation Patient also anemic so consider at least partial acute blood loss He was not o
--- NOTE | 2024-01-22 09:32 | ECG_ITS ---
SEE SCANNED COPY FOR CONFIRMED REPORT MTDD
[2024-01-22] MEDS: dexmedeTOMIDine 400 MCG/100 ML 400 MCG/100 ML BAG 15.51 MCG IV CONT ×2 (09:57→16:05)
[2024-01-22] MEDS: PROPOFOL IV EMULSION 100 ML 16.02 MG IV CONT ×2 (09:58→20:24)
[2024-01-22 11:39] LABS: Glucose Point of Care 138 mg/dl (65-105)
[2024-01-22] MEDS: PROPOFOL IV EMULSION 100 ML 24.03 MG IV CONT (14:03)
[2024-01-22 17:18] LABS: Glucose Point of Care 160 mg/dl (65-105)
--- NOTE | 2024-01-22 21:30 | PC.NURSE ---
Pt coughed out ETT during bath. Face mask applied to pt while waiting for provider to assess, possibly reintubate pt. TOMA Weems to bedside. All sedation placed on hold. Tube feeding placed on hold and NG to intermittent suction. Sharon concerned for possible aspiration due to pt's coughing. Sharon discussed pt's condition with Dr. Go. Providers agreed that pt should not be reintubated at this time.
--- NOTE | 2024-01-22 23:07 | P.PNCROSS_ITS ---
Event Note Event Note Event Note: 01/22/2024 21:08 S: Call received from the patient's nurse at 21:06. The patient was rolled over to clean him up after he had a bowel movement at which time he coughed forcibly enough that the ET tube came out 6 cm from where it had been previously do cumented. The tube was advanced and I received a call to come evaluate the patient thereafter. He was somnolent on sedation but arousable to voice. O: Ill-appearing gentleman on mechanical ventilation. SpO2 was in the mid upper 90s but was gradually falling. Respirations were in the mid 20s and he appeared to be in mild distress. Gurgling respirations were heard around the ET tube and quite a bit of secretions were suctioned from the oropharynx. Patient was sedated enough that I was able to insert the glide scope and see that the ET tube was no longer in the trachea but was instead in the esophagus. A: Dislodged ET tube, respiratory distress. P: Initial plans were to reintubate the patient as he had failed weaning trials the past couple of days. Medications were available at bedside for RSI. ET tube was removed as it was in the esophagus and his abdomen was getting distended. Propofol and Precedex were paused for RSI as there are concerns that bolusing with propofol may drop his blood pressures as he was previously requiring phenylephrine. After the tube was removed and secretions were suctioned he seeme d to calm down quite a bit and his SpO2 maintained at 100% on a non-rebreather for several minutes. Respirations slowed into the mid teens and he was actually able to speak and tell me his name, age, date of , his 's name, and that he was at [facility]. He was adamant that he did not want to be reintubated. He was transitioned to nasal cannula and has thus far remained stable on a few liters. I discussed this with Dr. Go. The patient will continue to be monitored closely. His is on the way to the hospital at the patient's request. Critical Care Time Critical Care Time: Yes Total Critical Care Time: 35 Attestation: Due to a high probability of clinically significant, life threatening deterioration, the patient required my highest level of preparedness to intervene emergently and I personally spent this critical care time directly and personally managing the patient. This critical care time included obtaining a history; examining the patient; pulse oximetry; ordering and review of studies; arranging urgent treatment with development of a management plan; evaluation of patient's response to treatment; frequent reassessment; and discussions with other providers. It was exclusive of separately billable procedures and treating other patients and teaching time. Please see Assessment and Plan section and the rest of the note for further information on patient assessment and treatment.
[2024-01-23] VITALS (40 sets, daily range): BP systolic 151–189; BP diastolic 55–81; PULSE 80–108; RESP 13–28; TEMP 36.9–37.4; O2SAT 88–98
--- NOTE | 2024-01-23 00:36 | PC.NURSE ---
After extubation the patient's niece stated he thought he was going to and did not want to be reintubated. Patient not alert or oriented After a couple of hours doing well on nasal cannula this nurse asked the patient's if she would want him to be reintubated. leaning towards DNI. After attempting top speak with patient she has decided the patient should be a DNR/DNI. Code status updated.
--- NOTE | 2024-01-23 00:50 | PC.NURSE ---
Do not intubate status verified by Melissa White RN.
[2024-01-23 00:54] LABS: Glucose Point of Care 74 mg/dl (65-105)
[2024-01-23] MEDS: LABETALOL HCL INJ 100 MG/20 ML VIAL 10 MG IV PUSH ×4 (01:10→16:09)
[2024-01-23] MEDS: dexmedeTOMIDine 400 MCG/100 ML 400 MCG/100 ML BAG 6.65 MCG IV CONT (01:13)
[2024-01-23] MEDS: IPRATROPIUM 0.5 MG/ALBUTEROL SULFATE 2.5 MG AMPUL.NEB 3 ML INHALATION (02:26)
[2024-01-23 05:17] LABS: Basophils Percent Auto 0.2 % (0.2-1.2); Eosinophils Percent Auto 0.7 % (0-4.4); Hematocrit 24.7 % (42.0-52.0); Immature Granulocyte Absolute 0.03 K/mm3 (0.00-0.031); Immature Granulocyte Percent A 0.5 % (0-0.5); Immature Platelet Fraction Pct 2.6 % (0.9-11.2); Lymphocytes Absolute Auto 0.67 K/mm3 (0.9-3.2); Lymphocytes Percent Auto 11.8 % (18.3-44.2); Mean Corpuscular HGB Conc 32.4 g/dl (32-36); Mean Corpuscular Hemoglobin 33.3 pg (26-34); Mean Corpuscular Volume 102.9 fl (80-100); Mean Platelet Volume 9.2 fl (7.4-10.4); Monocytes Absolute Auto 0.4 K/mm3 (0.1-0.6); Monocytes Percent Auto 6.2 % (2.6-8.5); Neutrophils Absolute Auto 4.6 K/mm3 (1.3-6.7); Neutrophils Percent Auto 80.6 % (45.5-73.1); Platelet Count Result 103 k/mm3 (150-375); Red Cell Distribution Width 13.4 % (11.5-14.5); White Blood Count 5.7 K/mm3 (4.5-10.0)
[2024-01-23 05:30] LABS: Alanine Aminotransferase 20 U/L (6-50); Albumin Level 3.4 g/dL (3.5-5.1); Alkaline Phosphatase 65 U/L (38-126); Anion Gap 4 mmol/L (4-12); Aspartate Amino Transferase 30 U/L (17-59); Bilirubin,Total 1.3 mg/dL (0.2-1.3); Blood Urea Nitrogen 18 mg/dL (9-20); Calcium 9.1 mg/dL (8.4-10.2); Carbon Dioxide 32 mmol/L (22-30); Chloride 103 mmol/L (98-107); Estimated CRCL calculation 100 ml/min; Estimated Glomerular Filt Rate > 60; Glucose 109 mg/dL (65-110); Magnesium 1.4 mg/dL (1.6-2.3); Phosphorus 3.6 mg/dL (2.5-4.5); Potassium 4.3 mmol/L (3.4-5.0); Sodium 139 mmol/L (137-145)
[2024-01-23] MEDS: CENTRAL LINE FLUSH 10 ML IV PUSH ×3 (05:58→20:21)
[2024-01-23] MEDS: UMECLIDINIUM/VILANTEROL 62.5-25 MCG ELLIPTA 1 PUFF INHALATION (07:56)
--- NOTE | 2024-01-23 08:32 | PM.IMPN ---
Progress Note: A&P Assessment and Plan (1) Acute respiratory failure with hypoxia: Code(s): J96.01 - Acute respiratory failure with hypoxia Status: Acute Assessment and Plan: Patient presented with generalized weakness, feeling unwell and SOB. CXR showing scarring but no acute findings. He became obtunded, delirious, tremulous and tachycardic despite Ativan 10mg total. He was intubated and central line placed in ED (01/14) and admitted to ICU. [place] related to COPD exacerbation, alcohol w/d and possibly sepsis. Was able to be extubated 01/18 but required reintubation due to inability to tolerate BiPAP and respiratory distress the next day Patient coughed out his ETT while he was being cleaned. Staff denied he pulled out the ETT Continue supportive care. No plans for re-intubation. Appreciate automotive generator repairer input (2) Shock: Code(s): R57.9 - Shock, unspecified Status: Acute Assessment and Plan: Patient developed HoTN in ED requiring Levophed felt related to hypovolemia Levophed weaned off 01/16. Phenylephrine started 01/19 but weaned off quickly BP better. Follow (3) Acute metabolic encephalopathy: Code(s): G93.41 - Metabolic encephalopathy Status: Acute Assessment and Plan: Acute metabolic encephalopathy felt multifactorial from sepsis, alcohol withdrawal, hyponatremia, anemia Head CT showing no acute process. B12/folate normal. TSH low at 0.3 but normal FT4. Patient currently on Precedex. Wean off as mental status. Awake and alert. Mildly confused. Monitor (4) Alcohol withdrawal: Code(s): F10.939 - Alcohol use, unspecified with withdrawal, unspecified Status: Acute Assessment and Plan: History of alcohol abuse Patient was delirious in the ER with worsening sx despite Ativan requiring intubation Remains on Precedex; wean off as tolerated (5) Alcohol dependence: Qualifiers: Substance use status: unspecified alcohol-induced disorder Qualified Code(s): F10.29 - Alcohol dependence with unspecified alcohol-induced disorder Code(s): F10.20 - Alcohol dependence, uncomplicated Status: Acute Assessment and Plan: History of alcohol dependence, patient's drinks 12 pack of beer per day Continue folic acid and thiamine Continue Precedex Will admissions counselor patient on cessation of alcohol use when more oriented Care coordination to provide resources for alcohol cessation (6) Chronic obstructive pulmonary disease, unspecified: Qualifiers: COPD type: unspecified COPD Qualified Code(s): J44.9 - Chronic obstructive pulmonary disease, unspecified Code(s): J44.9 - Chronic obstructive pulmonary disease, unspecified Status: Chronic Assessment and Plan: History of COPD secondary to being a former smoker, patient smoked 3 packs per day for 35 years Continue home Ellipta. Bronchodilators available prn Course BS today. No indications for steroids at this time As above. (7) Sepsis: Code(s): A41.9 - Sepsis, unspecified organism Status: Acute Assessment and Plan: Patient presented with elevated WBC count, lactic acidosis, tachycardia: sepsis vs SIRS Chest x-ray and UA were negative BCx negative Patient does have a hematoma of the inferior rectus probably related to a fall prior to admission CRP is 1.4, procalcitonin level was low Patient was started on Zosyn and cultures have been negative. Chest x-ray has remained clear Zosyn stopped 01/17 Suspect patietn with SIRS Follow off abx (8) Hematoma of muscle: Code(s): T14.8XXA - Other injury of unspecified body region, initial encounter Status: Acute Assessment and Plan: CT of the abdomen and pelvis showed 10.2 cm left inferior rectus intramuscular hematoma w/o active extravasation Patient also anemic so consider at least partial acute blood loss He was not on any anticoagulation on admission (ASA only) Hgb stable
--- NOTE | 2024-01-23 08:40 | WPDINTPN ---
Progress Note: A&P Assessment and Plan (1) Acute respiratory failure with hypoxia: Code(s): J96.01 - Acute respiratory failure with hypoxia Status: Acute Assessment and Plan: Patient presented with generalized weakness, became obtunded in the ER, tachycardic, delete aureus, tremulous, was given 10 mg Ativan was not responding to questions and was confused, ER physician decided to intubate the patient for impending respiratory failure after discussing with the family. Appears to have severe COPD at baseline. He is on home oxygen 01/15 intubated 01/16-01/17 12/31 PSV weaning trial was performed. Patient showed hypercarbia and respiratory acidosis. Increased work of breathing and use of abdominal muscles for breathing. He will not be able to use BiPAP if extubated. Not a candidate for extubation at this time. Changed sedation to Precedex 01/18 extubated and reintubated due to inability to tolerate BiPAP and respiratory distress 01/20 failed PSV weaning trial 01/21 self-extubated. Rather than reintubate and we decided to give patient a trial and see if he maintains his respiratory status Currently on nasal cannula. May need BiPAP if patient tolerates. He did not tolerate BiPAP last time leading to re-intubation. He is agreeable to intubation if needed. -continue bronchodilators -no wheezing on exam hence not on steroids Continue to monitor closely (2) Acute metabolic encephalopathy: Code(s): G93.41 - Metabolic encephalopathy Status: Acute Assessment and Plan: Acute metabolic encephalopathy could be multifactorial sepsis, alcohol withdrawal, hyponatremia, anemia Improved but patient now appears low confused and anxious. Will continue low-dose Precedex -ammonia levels within normal limits -TSH 0.31 free T4 1.14 (3) Alcohol withdrawal: Code(s): F10.939 - Alcohol use, unspecified with withdrawal, unspecified Status: Acute Assessment and Plan: History of alcohol use, drinks 12 pack of beer per day, Patient was found to be delirious, obtunded, tremulous, tachycardic in the ER, patient was given Ativan after he became more delirious and confused and had to be intubated and placed on mechanical ventilation -continue Precedex (4) Alcohol dependence: Qualifiers: Substance use status: unspecified alcohol-induced disorder Qualified Code(s): F10.29 - Alcohol dependence with unspecified alcohol-induced disorder Code(s): F10.20 - Alcohol dependence, uncomplicated Status: Acute Assessment and Plan: History of alcohol dependence, patient's drinks 12 pack of beer per day -continue folic acid and thiamine -continue Precedex (5) Chronic obstructive pulmonary disease, unspecified: Qualifiers: COPD type: unspecified COPD Qualified Code(s): J44.9 - Chronic obstructive pulmonary disease, unspecified Code(s): J44.9 - Chronic obstructive pulmonary disease, unspecified Status: Chronic Assessment and Plan: History of COPD likely secondary to being a former smoker, patient smoked 3 packs per day for 35 years -continue home Ellipta and bronchodilators -no wheezing noted, no indications for steroids at this time On nasal cannula (6) Sepsis: Code(s): A41.9 - Sepsis, unspecified organism Status: Acute Assessment and Plan: Patient presented with elevated WBC count, lactic acidosis, tachycardia Chest x-ray and UA were negative -patient does have a hematoma of the inferior rectus -CRP is 1.4, procalcitonin level was low -Patient was started on Zosyn and cultures have been negative. Chest x-ray is clear -01/15/2024: Blood cultures have been obtained and negative till now 01/17 will DC Zosyn (7) Hematoma of muscle: Code(s): T14.8XXA - Other injury of unspecified body region, initial encounter Status: Acute Assessment and Plan: CT of the abdomen and pelvis showed 10.2 cm left inferior rectus intramuscular hematoma, no ac
[2024-01-23] MEDS: DOCUSATE SODIUM LIQ 100 MG/10 ML UDC FEED TUBE (09:00)
[2024-01-23] MEDS: FOLIC ACID 1 MG TABLET FEED TUBE (09:00)
[2024-01-23] MEDS: amLODIPine BESYLATE 5 MG TABLET PO (09:00)
[2024-01-23] MEDS: busPIRone HCL 10 MG TABLET PO ×2 (09:00→20:20)
[2024-01-23] MEDS: ATORVASTATIN 10 MG TABLET PO (09:00)
[2024-01-23] MEDS: THIAMINE HCL 100 MG TABLET FEED TUBE (09:00)
[2024-01-23] MEDS: PANTOPRAZOLE SODIUM IV 40 MG VIAL IV PUSH ×2 (09:01→20:20)
[2024-01-23] MEDS: levETIRAcetam 500MG/NACL 100ML 500 MG/100 ML BAG 400 MG IVPB ×2 (09:01→20:20)
[2024-01-23] MEDS: MAGNESIUM SULF 2 GM/WATER 50ML 2 GM/50 ML BAG IVPB (09:01)
[2024-01-23] MEDS: dexmedeTOMIDine 400 MCG/100 ML 400 MCG/100 ML BAG 11.08 MCG IV CONT (12:28)
[2024-01-23 12:37] LABS: Glucose Point of Care 128 mg/dl (65-105)
[2024-01-23] MEDS: QUEtiapine FUMARATE 25 MG TABLET 50 MG PO (18:00)
[2024-01-23] MEDS: guaiFENesin/DEXTROMETHORPHAN 10 ML UDC PO (18:00)
[2024-01-23 18:16] LABS: Glucose Point of Care 107 mg/dl (65-105)
[2024-01-23] MEDS: dexmedeTOMIDine 400 MCG/100 ML 400 MCG/100 ML BAG 15.51 MCG IV CONT (18:41)
--- NOTE | 2024-01-23 18:45 | PC.NURSE ---
After cleaning up and repositioning patient without family present in room. Patient stated that he's beginning to feel all worked up again This RN remained with the patient and encouraged him to voice his emotions. Mr. Montes stated I want to choose how I go, and I want to go easy. Further conversation clarified the patients request to meet with hospice in the morning to discuss his options and to make a well informed decision about his end of life care. Mr. Montes then requested that this RN speak on his behalf to his family at the bedside. Family supports patients wishes and will be present for further discussions tomorrow. Charge nurse made aware of this development, Care coordination has already been consulted
[2024-01-23 23:36] LABS: Glucose Point of Care 120 mg/dl (65-105)
[2024-01-24] VITALS (37 sets, daily range): BP systolic 135–191; BP diastolic 55–105; PULSE 72–121; RESP 18–23; TEMP 37.1–37.4; O2SAT 90–100
[2024-01-24] MEDS: dexmedeTOMIDine 400 MCG/100 ML 400 MCG/100 ML BAG 17.72 MCG IV CONT (01:01)
[2024-01-24] MEDS: dexmedeTOMIDine 400 MCG/100 ML 400 MCG/100 ML BAG 24.37 MCG IV CONT (05:02)
[2024-01-24] MEDS: CENTRAL LINE FLUSH 10 ML IV PUSH ×3 (05:04→21:56)
[2024-01-24 05:32] LABS: Basophils Percent Auto 0.4 % (0.2-1.2); Eosinophils Absolute Auto 0.1 K/mm3 (0-0.3); Hematocrit 24.4 % (42.0-52.0); Immature Granulocyte Absolute 0.01 K/mm3 (0.00-0.031); Immature Granulocyte Percent A 0.2 % (0-0.5); Immature Platelet Fraction Pct 2.3 % (0.9-11.2); Lymphocytes Absolute Auto 0.79 K/mm3 (0.9-3.2); Mean Corpuscular HGB Conc 32.8 g/dl (32-36); Mean Corpuscular Hemoglobin 33.6 pg (26-34); Mean Corpuscular Volume 102.5 fl (80-100); Monocytes Absolute Auto 0.4 K/mm3 (0.1-0.6); Monocytes Percent Auto 7.9 % (2.6-8.5); Neutrophils Absolute Auto 3.7 K/mm3 (1.3-6.7); Neutrophils Percent Auto 74.5 % (45.5-73.1); Platelet Count Result 101 k/mm3 (150-375); Red Blood Count 2.38 M/mm3 (4.6-6.20); Red Cell Distribution Width 13.5 % (11.5-14.5); White Blood Count 4.9 K/mm3 (4.5-10.0)
[2024-01-24 05:42] LABS: Magnesium 1.7 mg/dL (1.6-2.3); Phosphorus 2.9 mg/dL (2.5-4.5)
[2024-01-24 05:43] LABS: Alanine Aminotransferase 17 U/L (6-50); Albumin Level 3.4 g/dL (3.5-5.1); Alkaline Phosphatase 63 U/L (38-126); Anion Gap 1 mmol/L (4-12); Aspartate Amino Transferase 25 U/L (17-59); Bilirubin,Total 1.3 mg/dL (0.2-1.3); Blood Urea Nitrogen 17 mg/dL (9-20); Calcium 8.8 mg/dL (8.4-10.2); Carbon Dioxide 35 mmol/L (22-30); Chloride 99 mmol/L (98-107); Estimated CRCL calculation 115 ml/min; Estimated Glomerular Filt Rate > 60; Glucose 126 mg/dL (65-110); Potassium 4.1 mmol/L (3.4-5.0); Sodium 135 mmol/L (137-145)
[2024-01-24] MEDS: FOLIC ACID 1 MG TABLET FEED TUBE (08:13)
[2024-01-24] MEDS: amLODIPine BESYLATE 5 MG TABLET PO (08:13)
[2024-01-24] MEDS: ATORVASTATIN 10 MG TABLET PO (08:13)
[2024-01-24] MEDS: THIAMINE HCL 100 MG TABLET FEED TUBE (08:13)
[2024-01-24] MEDS: GABAPENTIN 300 MG CAPSULE 600 MG PO ×3 (08:13→16:04)
[2024-01-24] MEDS: busPIRone HCL 10 MG TABLET PO ×2 (08:13→20:18)
[2024-01-24] MEDS: PANTOPRAZOLE SODIUM IV 40 MG VIAL IV PUSH ×2 (08:14→20:17)
[2024-01-24] MEDS: levETIRAcetam 500MG/NACL 100ML 500 MG/100 ML BAG 400 MG IVPB ×2 (08:14→20:18)
[2024-01-24] MEDS: UMECLIDINIUM/VILANTEROL 62.5-25 MCG ELLIPTA 1 PUFF INHALATION (08:43)
--- NOTE | 2024-01-24 09:39 | WPDINTPN ---
Progress Note: A&P Assessment and Plan (1) Anxiety: Code(s): F41.9 - Anxiety disorder, unspecified Status: Acute Assessment and Plan: Patient has been having anxiety and panic attacks for the last few days, patient's states that he does not have any anxiety or panic attacks at home -this could be related to agoraphobia, -patient has been started on gabapentin, will schedule low-dose Xanax per tube Q 8 hours -continue to wean Precedex infusion (2) Acute respiratory failure with hypoxia: Code(s): J96.01 - Acute respiratory failure with hypoxia Status: Acute Assessment and Plan: Patient presented with generalized weakness, became obtunded in the ER, tachycardic, delete aureus, tremulous, was given 10 mg Ativan was not responding to questions and was confused, ER physician decided to intubate the patient for impending respiratory failure after discussing with the family. Appears to have severe COPD at baseline. He is on home oxygen 01/15 intubated 01/16-01/17 12/31 PSV weaning trial was performed. Patient showed hypercarbia and respiratory acidosis. Increased work of breathing and use of abdominal muscles for breathing. He will not be able to use BiPAP if extubated. Not a candidate for extubation at this time. Changed sedation to Precedex 01/18 extubated and reintubated due to inability to tolerate BiPAP and respiratory distress 01/20 failed PSV weaning trial 01/21 self-extubated. Rather than reintubate and we decided to give patient a trial and see if he maintains his respiratory status Currently on 2 L nasal cannula with adequate O2 sats. If patient desaturates he may benefit from high-flow therapy He is agreeable to intubation if needed. -continue bronchodilators -no wheezing on exam hence not on steroids -Continue to monitor closely (3) Acute metabolic encephalopathy: Code(s): G93.41 - Metabolic encephalopathy Status: Acute Assessment and Plan: Acute metabolic encephalopathy could be multifactorial sepsis, alcohol withdrawal, hyponatremia, anemia Improved but patient now appears low confused and anxious. Will continue low-dose Precedex -ammonia levels within normal limits -TSH 0.31 free T4 1.14 -continue Precedex infusion (4) Alcohol withdrawal: Code(s): F10.939 - Alcohol use, unspecified with withdrawal, unspecified Status: Acute Assessment and Plan: History of alcohol use, drinks 12 pack of beer per day, Patient was found to be delirious, obtunded, tremulous, tachycardic in the ER, patient was given Ativan after he became more delirious and confused and had to be intubated and placed on mechanical ventilation -continue Precedex (5) Alcohol dependence: Qualifiers: Substance use status: unspecified alcohol-induced disorder Qualified Code(s): F10.29 - Alcohol dependence with unspecified alcohol-induced disorder Code(s): F10.20 - Alcohol dependence, uncomplicated Status: Acute Assessment and Plan: History of alcohol dependence, patient's drinks 12 pack of beer per day -continue folic acid and thiamine -continue Precedex (6) Chronic obstructive pulmonary disease, unspecified: Qualifiers: COPD type: unspecified COPD Qualified Code(s): J44.9 - Chronic obstructive pulmonary disease, unspecified Code(s): J44.9 - Chronic obstructive pulmonary disease, unspecified Status: Chronic Assessment and Plan: History of COPD likely secondary to being a former smoker, patient smoked 3 packs per day for 35 years -continue home Ellipta and bronchodilators -no wheezing noted, no indications for steroids at this time -On nasal cannula (7) Sepsis: Code(s): A41.9 - Sepsis, unspecified organism Status: Acute Assessment and Plan: Patient presented with elevated WBC count, lactic acidosis, tachycardia Chest x-ray and UA were negative -patient does have a hematoma of the inferior rectus -CRP is 1.4, pr
[2024-01-24] MEDS: ALPRAZolam (*CRX) 0.25 MG TABLET PO ×3 (09:58→21:56)
[2024-01-24] MEDS: dexmedeTOMIDine 400 MCG/100 ML 400 MCG/100 ML BAG 22.15 MCG IV CONT (10:21)
[2024-01-24] MEDS: DULoxetine HCL 60 MG CAPSULE.DR PO (10:23)
--- NOTE | 2024-01-24 10:57 | PCNFU ---
Nutrition Follow-Up Complete: Increased protein energy needs related to mechanical ventilation as evidenced by need for full tube feeding goal: Meet estimated protein energy needs Patient is progressing towards goal. We will continue current goal. Pt current nutrition is Vital AF 1.2 at 20 ml/hr. Last recorded weight is 89.3 kg. Bowel Motility: +BM reported 01/23 Labs Reviewed:Glu 126, NA 135, Alb 3.4,Hct 24.4,Hgb 8.0 Meds Noted:Precedex,Zanac, Keppra, Folic Acid, Lovenox Skin: WNL Additional Notes: Patient has been extubated 01/21. NGT remains with tube feedings at 20 ml/hr. Plans for swallow study today. Central line to be removed today. Will continue to monitor for diet order changes. Monitoring labs, vital signs, orders, weights, output, tube feeding tolerance Follow daily in rounds, reassess Tuesdays and Fridays
--- NOTE | 2024-01-24 11:05 | PCSTNOTE ---
RAIL TRANSIT OPERATOR attempted evaluation at 9:45 however patient was with other staff at the time.
--- NOTE | 2024-01-24 13:49 | PCSTNOTE ---
Please refer to the Bedside Swallow Evaluation in the EMR. Please note, silent aspiration cannot be ruled out at bedside. The above pleasant and cooperative pt was seen for a swallow evaluation at bedside. The pt was positioned upright in a yoshi chair. He was alert (somnolent) but able to follow commands. He is currently NPO, recently extubated, & denies dysphagia. Sister present. Oral mucosa is normal; edentulous. Pt's spouse is to bring in his dentures. Oral peripheral exam revealed lingual and labial structures to be normal. He was able to dry swallow on command and exhibited clear vocal quality. He was tested with applesauce, pudding, small piece of a cracker and thin liquids in controlled and uncontrolled amounts. The oral stages appeared WFL -- slightly delayed mastication with the cracker piece, but no oral residue, leakage, or pocketing was noted. During the pharyngeal stage, swallow reflex appeared prompt & laryngeal elevation adequate. No overt s/s of aspiration were exhibited; however, silent aspiration cannot be ruled at bedside. General impression: functional swallow ability. Recommendation: Level 5 diet with regular liquids; advance as tolerated once dentures are here. Thank you for this referral.
--- NOTE | 2024-01-24 15:48 | PM.IMPN ---
Progress Note: A&P Assessment and Plan (1) Acute respiratory failure with hypoxia: Code(s): J96.01 - Acute respiratory failure with hypoxia Status: Acute Assessment and Plan: Patient presented with generalized weakness, feeling unwell and SOB. CXR showing scarring but no acute findings. He became obtunded, delirious, tremulous and tachycardic despite Ativan 10mg total. He was intubated and central line placed in ED (01/14) and admitted to ICU. [place] related to COPD exacerbation, alcohol w/d and possibly sepsis. Was able to be extubated 01/18 but required reintubation due to inability to tolerate BiPAP and respiratory distress the next day Patient coughed out his ETT while he was being cleaned up on the evening of 01/21. Staff denied he pulled out the ETT. He was started on supplemental O2 and tolerated being off MV. He has made hilself a DNR and family supports this decision. Continue supportive care. Wean O2 as toelrated Patient and family talking about transitioning to hospice and care coordination notified. Spoke with patient and family about options but he began to get anxious so further conversation was deferred Discussed with english tutor (2) Shock: Code(s): R57.9 - Shock, unspecified Status: Acute Assessment and Plan: Patient developed HoTN in ED requiring Levophed felt related to hypovolemia Levophed weaned off 01/16. Phenylephrine started 01/19 felt related to being on Precedex but weaned off quickly BP stable. Follow (3) Acute metabolic encephalopathy: Code(s): G93.41 - Metabolic encephalopathy Status: Acute Assessment and Plan: Acute metabolic encephalopathy felt multifactorial from sepsis, alcohol withdrawal, hyponatremia, anemia Head CT showing no acute process. B12/folate normal. TSH low at 0.3 but normal FT4. Patient currently on Precedex. Wean off as mental status. Monitor (4) Alcohol withdrawal: Code(s): F10.939 - Alcohol use, unspecified with withdrawal, unspecified Status: Acute Assessment and Plan: History of alcohol abuse Patient was delirious in the ER with worsening sx despite Ativan requiring intubation Remains on Precedex; wean off as tolerated (5) Alcohol dependence: Qualifiers: Substance use status: unspecified alcohol-induced disorder Qualified Code(s): F10.29 - Alcohol dependence with unspecified alcohol-induced disorder Code(s): F10.20 - Alcohol dependence, uncomplicated Status: Acute Assessment and Plan: History of alcohol dependence, patient's drinks 12 pack of beer per day Continue folic acid and thiamine Continue Precedex Care coordination to provide resources for alcohol cessation (6) Chronic obstructive pulmonary disease, unspecified: Qualifiers: COPD type: unspecified COPD Qualified Code(s): J44.9 - Chronic obstructive pulmonary disease, unspecified Code(s): J44.9 - Chronic obstructive pulmonary disease, unspecified Status: Chronic Assessment and Plan: History of COPD secondary to being a former smoker, patient smoked 3 packs per day for 35 years Continue home Anoro Ellipta. Bronchodilators available prn Follow (7) Sepsis: Code(s): A41.9 - Sepsis, unspecified organism Status: Acute Assessment and Plan: Patient presented with elevated WBC count, lactic acidosis, tachycardia: sepsis vs SIRS Chest x-ray and UA were negative BCx negative Patient does have a hematoma of the inferior rectus probably related to a fall prior to admission CRP is 1.4, procalcitonin level was low Patient was started on Zosyn and cultures have been negative. Chest x-ray has remained clear Zosyn stopped 01/17 Suspect patietn with SIRS Follow off abx (8) Hematoma of muscle: Code(s): T14.8XXA - Other injury of unspecified body region, initial encounter Status: Acute Assessment and Plan: CT of the abdomen and pelvis showed 1
[2024-01-24] MEDS: LABETALOL HCL INJ 100 MG/20 ML VIAL 10 MG IV PUSH ×3 (16:06→23:06)
[2024-01-24] MEDS: TOLNAFTATE 1% POWDER 45 GM BTL 1 APPLIC TOPICAL (20:18)
[2024-01-25] VITALS (22 sets, daily range): BP systolic 129–188; BP diastolic 63–88; PULSE 84–106; RESP 15–21; TEMP 37.1–37.6; O2SAT 91–100
[2024-01-25] MEDS: amLODIPine BESYLATE 5 MG TABLET PO (01:16)
[2024-01-25] MEDS: LABETALOL HCL INJ 100 MG/20 ML VIAL 10 MG IV PUSH ×3 (01:16→09:17)
[2024-01-25 04:02] LABS: Basophils Percent Auto 0.6 % (0.2-1.2); Eosinophils Absolute Auto 0.1 K/mm3 (0-0.3); Hematocrit 28.5 % (42.0-52.0); Hemoglobin 9.6 g/dL (14.0-18.0); Immature Granulocyte Absolute 0.03 K/mm3 (0.00-0.031); Immature Granulocyte Percent A 0.4 % (0-0.5); Lymphocytes Absolute Auto 1.19 K/mm3 (0.9-3.2); Mean Corpuscular HGB Conc 33.7 g/dl (32-36); Mean Corpuscular Hemoglobin 33.8 pg (26-34); Mean Corpuscular Volume 100.4 fl (80-100); Monocytes Absolute Auto 0.6 K/mm3 (0.1-0.6); Neutrophils Absolute Auto 5.1 K/mm3 (1.3-6.7); Platelet Count Result 112 k/mm3 (150-375); Red Blood Count 2.84 M/mm3 (4.6-6.20); Red Cell Distribution Width 13.9 % (11.5-14.5)
[2024-01-25 04:13] LABS: Alanine Aminotransferase 19 U/L (6-50); Alkaline Phosphatase 71 U/L (38-126); Anion Gap 4 mmol/L (4-12); Aspartate Amino Transferase 33 U/L (17-59); Bilirubin,Total 1.9 mg/dL (0.2-1.3); Blood Urea Nitrogen 16 mg/dL (9-20); Calcium 9.2 mg/dL (8.4-10.2); Carbon Dioxide 33 mmol/L (22-30); Chloride 96 mmol/L (98-107); Estimated CRCL calculation 100 ml/min; Estimated Glomerular Filt Rate > 60; Glucose 101 mg/dL (65-110); Magnesium 1.5 mg/dL (1.6-2.3); Phosphorus 3.2 mg/dL (2.5-4.5); Potassium 4.4 mmol/L (3.4-5.0); Sodium 133 mmol/L (137-145)
[2024-01-25] MEDS: ALPRAZolam (*CRX) 0.25 MG TABLET PO ×2 (05:45→09:59)
[2024-01-25] MEDS: CENTRAL LINE FLUSH 10 ML IV PUSH (05:48)
--- NOTE | 2024-01-25 08:21 | WPDINTPN ---
Progress Note: A&P Assessment and Plan (1) Anxiety: Code(s): F41.9 - Anxiety disorder, unspecified Status: Acute Assessment and Plan: Patient has been having anxiety and panic attacks for the last few days, patient's states that he does not have any anxiety or panic attacks at home -this could be related to agoraphobia, -patient has been started on gabapentin, -can you low-dose Xanax per tube every 8 hours scheduled -off Precedex infusion -PT/OT to continue to work with patient -up in chair (2) Acute respiratory failure with hypoxia: Code(s): J96.01 - Acute respiratory failure with hypoxia Status: Acute Assessment and Plan: Patient presented with generalized weakness, became obtunded in the ER, tachycardic, delete aureus, tremulous, was given 10 mg Ativan was not responding to questions and was confused, ER physician decided to intubate the patient for impending respiratory failure after discussing with the family. Appears to have severe COPD at baseline. He is on home oxygen 01/15 intubated 01/16-01/17 12/31 PSV weaning trial was performed. Patient showed hypercarbia and respiratory acidosis. Increased work of breathing and use of abdominal muscles for breathing. He will not be able to use BiPAP if extubated. Not a candidate for extubation at this time. Changed sedation to Precedex 01/18 extubated and reintubated due to inability to tolerate BiPAP and respiratory distress 01/20 failed PSV weaning trial 01/21 self-extubated. Rather than reintubate and we decided to give patient a trial and see if he maintains his respiratory status Currently on 2 L nasal cannula with adequate O2 sats. If patient desaturates he may benefit from high-flow therapy He is agreeable to intubation if needed. -continue bronchodilators -no wheezing on exam hence not on steroids -Continue to monitor closely (3) Acute metabolic encephalopathy: Code(s): G93.41 - Metabolic encephalopathy Status: Acute Assessment and Plan: Much improved Acute metabolic encephalopathy could be multifactorial sepsis, alcohol withdrawal, hyponatremia, anemia -ammonia levels within normal limits -TSH 0.31 free T4 1.14 -off Precedex infusion (4) Alcohol withdrawal: Code(s): F10.939 - Alcohol use, unspecified with withdrawal, unspecified Status: Acute Assessment and Plan: History of alcohol use, drinks 12 pack of beer per day, Patient was found to be delirious, obtunded, tremulous, tachycardic in the ER, patient was given Ativan after he became more delirious and confused and had to be intubated and placed on mechanical ventilation -off Precedex (5) Alcohol dependence: Qualifiers: Substance use status: unspecified alcohol-induced disorder Qualified Code(s): F10.29 - Alcohol dependence with unspecified alcohol-induced disorder Code(s): F10.20 - Alcohol dependence, uncomplicated Status: Acute Assessment and Plan: History of alcohol dependence, patient's drinks 12 pack of beer per day -continue folic acid and thiamine (6) Chronic obstructive pulmonary disease, unspecified: Qualifiers: COPD type: unspecified COPD Qualified Code(s): J44.9 - Chronic obstructive pulmonary disease, unspecified Code(s): J44.9 - Chronic obstructive pulmonary disease, unspecified Status: Chronic Assessment and Plan: History of COPD likely secondary to being a former smoker, patient smoked 3 packs per day for 35 years -continue home Ellipta and bronchodilators -no wheezing noted, no indications for steroids at this time -On nasal cannula (7) Sepsis: Code(s): A41.9 - Sepsis, unspecified organism Status: Acute Assessment and Plan: Resolved Patient presented with elevated WBC count, lactic acidosis, tachycardia Chest x-ray and UA were negative -patient does have a hematoma of the inferior rectus -CRP is 1.4, procalcitonin level was low -Patient was sta
[2024-01-25] MEDS: THIAMINE HCL 100 MG TABLET FEED TUBE (08:41)
[2024-01-25] MEDS: busPIRone HCL 10 MG TABLET PO ×2 (08:41→22:11)
[2024-01-25] MEDS: amLODIPine BESYLATE 5 MG TABLET 10 MG PO (08:41)
[2024-01-25] MEDS: ATORVASTATIN 10 MG TABLET PO (08:42)
[2024-01-25] MEDS: DULoxetine HCL 60 MG CAPSULE.DR PO (08:42)
[2024-01-25] MEDS: levETIRAcetam 500MG/NACL 100ML 500 MG/100 ML BAG 400 MG IVPB ×2 (08:42→22:12)
[2024-01-25] MEDS: GABAPENTIN 300 MG CAPSULE 600 MG PO ×3 (08:42→16:15)
[2024-01-25] MEDS: FOLIC ACID 1 MG TABLET FEED TUBE (08:42)
[2024-01-25] MEDS: METOPROLOL TARTRATE 25 MG TABLET PO ×2 (08:42→22:12)
[2024-01-25] MEDS: TOLNAFTATE 1% POWDER 45 GM BTL 1 APPLIC TOPICAL ×2 (08:42→22:12)
[2024-01-25] MEDS: PANTOPRAZOLE SODIUM IV 40 MG VIAL IV PUSH ×2 (08:42→22:11)
[2024-01-25] MEDS: MAGNESIUM SULF 2 GM/WATER 50ML 2 GM/50 ML BAG IVPB (08:44)
[2024-01-25] MEDS: UMECLIDINIUM/VILANTEROL 62.5-25 MCG ELLIPTA 1 PUFF INHALATION (08:56)
--- NOTE | 2024-01-25 11:03 | PCFNICU ---
ICU Rounding Note: Pt current nutrition is Minced and Moist, Level 5/Heart Healthy. Nutrition recommendation: Ensure compact BID Last recorded weight is 89.3 kg, up from 78.9 kg on admit. Bowel Motility: +BM reported 01/24 Labs Reviewed:Mg 1.5, Na 133, Hct 28.5,Hgb 9.6 Meds Noted:Folic Acid, Lovenox, Keppra, Thiamine Skin: WNL Additional Notes: Patient is tolerating Minced and Moist, level 5 diet. Appetite is poor at this time. Ate some oatmeal for breakfast. Recommend adding Ensure compact BID for additional 220 kcal and 9 gm protein. Once patient has dentures speech therapy is recommending advancing diet as tolerated. Agree with diet orders. Following daily in ICU rounds. Monitoring labs, vital signs, orders, weights, output, diet orders and reassess every 3 days.
--- NOTE | 2024-01-25 12:39 | PM.IMPN ---
Progress Note: A&P Assessment and Plan (1) Anxiety: Code(s): F41.9 - Anxiety disorder, unspecified Status: Acute Assessment and Plan: While inpatient the patient has had panic attacks -this could be related to agoraphobia -patient's home gabapentin has been restarted -low-dose Xanax p.r.n. is helping to alleviate his symptoms -off Precedex infusion -PT/OT to continue to work with patient -up in chair (2) Acute respiratory failure with hypoxia: Code(s): J96.01 - Acute respiratory failure with hypoxia Status: Acute Assessment and Plan: Patient presented with generalized weakness, became obtunded in the ER, tachycardic, delete aureus, tremulous, was given 10 mg Ativan was not responding to questions and was confused, ER physician decided to intubate the patient for impending respiratory failure after discussing with the family. Appears to have severe COPD at baseline. He is on home oxygen 01/15 intubated 01/16-01/17 12/31 PSV weaning trial was performed. Patient showed hypercarbia and respiratory acidosis. Increased work of breathing and use of abdominal muscles for breathing. He will not be able to use BiPAP if extubated. Not a candidate for extubation at this time. Changed sedation to Precedex 01/18 extubated and reintubated due to inability to tolerate BiPAP and respiratory distress 01/20 failed PSV weaning trial 01/21 self-extubated. Rather than reintubate and we decided to give patient a trial and see if he maintains his respiratory status Currently on 2 L nasal cannula with adequate O2 sats. If patient desaturates he may benefit from high-flow therapy He is agreeable to intubation if needed. -continue bronchodilators -no wheezing on exam hence not on steroids -Continue to monitor closely (3) Acute metabolic encephalopathy: Code(s): G93.41 - Metabolic encephalopathy Status: Acute Assessment and Plan: Much improved Acute metabolic encephalopathy could be multifactorial sepsis, alcohol withdrawal, hyponatremia, anemia -ammonia levels within normal limits -TSH 0.31 free T4 1.14 -off Precedex infusion (4) Alcohol withdrawal: Code(s): F10.939 - Alcohol use, unspecified with withdrawal, unspecified Status: Acute Assessment and Plan: History of alcohol use, drinks 12 pack of beer per day (however now on 01/24 reports he drinks 5-6 beers only once per week) Patient was found to be delirious, obtunded, tremulous, tachycardic in the ER, patient was given Ativan after he became more delirious and confused and had to be intubated and placed on mechanical ventilation -off Precedex (5) Alcohol dependence: Qualifiers: Substance use status: unspecified alcohol-induced disorder Qualified Code(s): F10.29 - Alcohol dependence with unspecified alcohol-induced disorder Code(s): F10.20 - Alcohol dependence, uncomplicated Status: Acute Assessment and Plan: History of alcohol dependence, patient's drinks 12 pack of beer per day -continue folic acid and thiamine -counseling provided to abstain from illicit drug use alcohol use and tobacco use altogether. Patient and his agree. Resources have been provided. (6) Chronic obstructive pulmonary disease, unspecified: Qualifiers: COPD type: unspecified COPD Qualified Code(s): J44.9 - Chronic obstructive pulmonary disease, unspecified Code(s): J44.9 - Chronic obstructive pulmonary disease, unspecified Status: Chronic Assessment and Plan: History of COPD likely secondary to being a former smoker, patient smoked 3 packs per day for 35 years -continue home Ellipta and bronchodilators -no wheezing noted, no indications for steroids at this time -On nasal cannula -he is chronically on this at home uses nasal cannula intermittently (7) Sepsis: Code(s): A41.9 - Sepsis, unspecified organism Status: Acute Assessment and Plan: Resolved Patient presented wit
[2024-01-25] MEDS: ALPRAZolam (*CRX) 0.5 MG TABLET PO ×2 (13:15→22:16)
--- NOTE | 2024-01-25 14:30 | PCOTNOTE ---
Attempted to see Patient this afternoon. Patient had just finished up with PT services. Per Patient and , Patient will be interested in therapy services tomorrow, Patient is worn out and has not slept. Per Patient's , Patient has been given medication to assist him in calming himself down and resting.
--- NOTE | 2024-01-25 16:06 | WPDGICN ---
Assessment and Plan Assessment and plan (1) Acute on chronic anemia: Code(s): D64.9 - Anemia, unspecified Status: Acute Assessment and Plan: probably multifactorial given respiratory condition I prefer to keep monitoring, he is high risk for anesthesia also noted large hematoma on admission, he is not candidate for anticoagulation anyways- risk for fall, presentation with large hematoma, etc of course if obvious GIB then we can proceed with scopes (2) Alcohol withdrawal seizure: Code(s): F10.939 - Alcohol use, unspecified with withdrawal, unspecified; R56.9 - Unspecified convulsions Status: Acute Assessment and Plan: better per staff s/p precedex thiamine, nutrition (3) Cirrhosis of liver: Code(s): K74.60 - Unspecified cirrhosis of liver Status: Acute Assessment and Plan: alcohol abuse (4) Hematoma of muscle: Code(s): T14.8XXA - Other injury of unspecified body region, initial encounter Status: Acute (5) Atrial fibrillation with RVR: Code(s): I48.91 - Unspecified atrial fibrillation Status: Acute (6) Alcohol withdrawal: Code(s): F10.939 - Alcohol use, unspecified with withdrawal, unspecified Status: Acute (7) Sepsis: Code(s): A41.9 - Sepsis, unspecified organism Status: Acute Assessment and Plan: treated (8) Thrombocytopenia: Code(s): D69.6 - Thrombocytopenia, unspecified Status: Acute Assessment and Plan: probably from alcohol/cirrhosis GI Consult Note Consult date/time: 01/25/24 16:06 Reason for consult: acute on chronic anemia, alcohol abuse, possible cirrhosis HPI: Francis Montes is a 68 year old male significant past medical of COPD, alcohol dependence, alcoholic cirrhosis, type 2 diabetes, gout, peripheral neuropathy, tremors, thrombocytopenia, peripheral vascular disease, portal venous hypertension, hyperlipidemia, former smoker? presented the ED via EMS with complains of generalized weakness, fatigue, shortness of breath 01/15/2024 then developed respiratory failure and was intubated and taken to ICU- he is extubated now but poor historian.?On admission he was delirious with alcohol withdrawal and still in ICU. Noted chronic anemia and primary asking to evaluate but no overt gib. Also imaging on admission noted cirrhosis, 10.2 cm left inferior rectus intramuscular hematoma. During hospitalization had A fib, encephalopathy. His respiratory distress and sepsis treated and improved now. He is not on anticoagulation because anemia and large hematoma on admission. Review of Systems Review of Systems: ROS unobtainable: Yes unobtainable due to mental status [facility] Past Medical History Medical History (Updated 01/25/24 @ 16:12 by Félix Cardoso MD) Acute on chronic anemia Alcohol dependence Alcohol withdrawal seizure Alcoholic cirrhosis Chronic obstructive pulmonary disease, unspecified Cirrhosis of liver COPD (chronic obstructive pulmonary disease) Depression with anxiety Diabetes mellitus Diabetes mellitus type 2 in obese Gout Hepatitis A Injury of left shoulder Nicotine dependence Onychomycosis Peripheral neuropathy Peripheral neuropathy Peripheral vascular disease Portal venous hypertension Pure hypercholesterolemia Rotator cuff dysfunction Shoulder injury Stasis dermatitis of both legs Thrombocytopenia Type 2 diabetes mellitus without complication, without long-term current use of insulin Diagnosed in 2018 last hemoglobin A1c 5.07 October 2021 Xerosis cutis Surgical History Surgical History History of colonoscopy with polypectomy (03/2018) History of cystoscopy S/P TURP (status post transurethral resection of prostate) Family History Family History Mother Carcinoma of colon, Onset Age: 77 Father Diabetes mellitus Sibling Evelyn
[2024-01-25 16:18] LABS: Glucose Point of Care 99 mg/dl (65-105)
--- NOTE | 2024-01-25 16:28 | PC.NURSE ---
Pt to MRI via stretcher.
[2024-01-26] VITALS (10 sets, daily range): BP systolic 100–159; BP diastolic 58–84; PULSE 64–106; RESP 16–18; TEMP 36.4–36.9; O2SAT 97–100
[2024-01-26 04:13] LABS: Basophils Percent Auto 0.6 % (0.2-1.2); Eosinophils Absolute Auto 0.1 K/mm3 (0-0.3); Eosinophils Percent Auto 1.6 % (0-4.4); Hemoglobin 10.3 g/dL (14.0-18.0); Immature Granulocyte Absolute 0.01 K/mm3 (0.00-0.031); Immature Granulocyte Percent A 0.1 % (0-0.5); Immature Platelet Fraction Pct 2.3 % (0.9-11.2); Lymphocytes Absolute Auto 1.49 K/mm3 (0.9-3.2); Lymphocytes Percent Auto 21.1 % (18.3-44.2); Mean Corpuscular HGB Conc 33.2 g/dl (32-36); Mean Corpuscular Volume 99.4 fl (80-100); Mean Platelet Volume 9.1 fl (7.4-10.4); Monocytes Absolute Auto 0.7 K/mm3 (0.1-0.6); Monocytes Percent Auto 10.2 % (2.6-8.5); Neutrophils Absolute Auto 4.7 K/mm3 (1.3-6.7); Neutrophils Percent Auto 66.4 % (45.5-73.1); Platelet Count Result 149 k/mm3 (150-375); Red Blood Count 3.12 M/mm3 (4.6-6.20); Red Cell Distribution Width 14.2 % (11.5-14.5); White Blood Count 7.1 K/mm3 (4.5-10.0)
[2024-01-26 04:34] LABS: Alanine Aminotransferase 18 U/L (6-50); Albumin Level 3.8 g/dL (3.5-5.1); Alkaline Phosphatase 73 U/L (38-126); Anion Gap 2 mmol/L (4-12); Aspartate Amino Transferase 36 U/L (17-59); Blood Urea Nitrogen 17 mg/dL (9-20); Calcium 9.1 mg/dL (8.4-10.2); Carbon Dioxide 35 mmol/L (22-30); Chloride 95 mmol/L (98-107); Estimated CRCL calculation 100 ml/min; Estimated Glomerular Filt Rate > 60; Glucose 95 mg/dL (65-110); Magnesium 1.8 mg/dL (1.6-2.3); Phosphorus 3.3 mg/dL (2.5-4.5); Potassium 4.2 mmol/L (3.4-5.0); Sodium 132 mmol/L (137-145)
[2024-01-26] MEDS: ALPRAZolam (*CRX) 0.5 MG TABLET PO ×3 (06:38→21:18)
[2024-01-26] MEDS: UMECLIDINIUM/VILANTEROL 62.5-25 MCG ELLIPTA 1 PUFF INHALATION (08:29)
[2024-01-26] MEDS: DULoxetine HCL 60 MG CAPSULE.DR PO (08:37)
[2024-01-26] MEDS: amLODIPine BESYLATE 5 MG TABLET 10 MG PO (08:37)
[2024-01-26] MEDS: METOPROLOL TARTRATE 25 MG TABLET PO ×2 (08:37→21:19)
[2024-01-26] MEDS: busPIRone HCL 10 MG TABLET PO ×2 (08:37→21:18)
[2024-01-26] MEDS: THIAMINE HCL 100 MG TABLET FEED TUBE (08:37)
[2024-01-26] MEDS: ATORVASTATIN 10 MG TABLET PO (08:37)
[2024-01-26] MEDS: PANTOPRAZOLE SODIUM IV 40 MG VIAL IV PUSH ×2 (08:38→21:19)
[2024-01-26] MEDS: levETIRAcetam 500MG/NACL 100ML 500 MG/100 ML BAG 400 MG IVPB ×2 (08:38→21:19)
[2024-01-26] MEDS: GABAPENTIN 300 MG CAPSULE 600 MG PO ×3 (08:38→16:57)
[2024-01-26] MEDS: TOLNAFTATE 1% POWDER 45 GM BTL 1 APPLIC TOPICAL ×2 (08:38→21:20)
[2024-01-26] MEDS: FOLIC ACID 1 MG TABLET FEED TUBE (08:38)
--- NOTE | 2024-01-26 08:46 | P.PNIM_ITS ---
Progress Note: A&P Assessment and Plan (1) Anxiety: Code(s): F41.9 - Anxiety disorder, unspecified Status: Acute Assessment and Plan: While inpatient the patient has had panic attacks -this could be related to agoraphobia -patient's home gabapentin has been restarted -low-dose Xanax p.r.n. is helping to alleviate his symptoms -off Precedex infusion -PT/OT to continue to work with patient -up in chair -discontinue telemetry. It is causing the patient to much anxiety. (2) Acute respiratory failure with hypoxia: Code(s): J96.01 - Acute respiratory failure with hypoxia Status: Acute Assessment and Plan: Patient presented with generalized weakness, became obtunded in the ER, tachycardic, delete aureus, tremulous, was given 10 mg Ativan was not responding to questions and was confused, ER physician decided to intubate the patient for impending respiratory failure after discussing with the family. Appears to have severe COPD at baseline. He is on home oxygen 01/15 intubated 01/16-01/17 12/31 PSV weaning trial was performed. Patient showed hypercarbia and respiratory acidosis. Increased work of breathing and use of abdominal muscles for breathing. He will not be able to use BiPAP if extubated. Not a candidate for extubation at this time. Changed sedation to Precedex 01/18 extubated and reintubated due to inability to tolerate BiPAP and respiratory distress 01/20 failed PSV weaning trial 01/21 self-extubated. Rather than reintubate and we decided to give patient a trial and see if he maintains his respiratory status Currently on 2 L nasal cannula with adequate O2 sats. If patient desaturates he may benefit from high-flow therapy He is agreeable to intubation if needed. -continue bronchodilators -no wheezing on exam hence not on steroids -Continue to monitor closely (3) Acute metabolic encephalopathy: Code(s): G93.41 - Metabolic encephalopathy Status: Acute Assessment and Plan: Much improved Acute metabolic encephalopathy could be multifactorial sepsis, alcohol withdrawal, hyponatremia, anemia -ammonia levels within normal limits -TSH 0.31 free T4 1.14 -off Precedex infusion (4) Alcohol withdrawal: Code(s): F10.939 - Alcohol use, unspecified with withdrawal, unspecified Status: Acute Assessment and Plan: History of alcohol use, drinks 12 pack of beer per day (however now on 01/24 reports he drinks 5-6 beers only once per week) Patient was found to be delirious, obtunded, tremulous, tachycardic in the ER, patient was given Ativan after he became more delirious and confused and had to be intubated and placed on mechanical ventilation -off Precedex (5) Alcohol dependence: Qualifiers: Substance use status: unspecified alcohol-induced disorder Qualified Code(s): F10.29 - Alcohol dependence with unspecified alcohol-induced disorder Code(s): F10.20 - Alcohol dependence, uncomplicated Status: Acute Assessment and Plan: History of alcohol dependence, patient's drinks 12 pack of beer per day -continue folic acid and thiamine -counseling provided to abstain from illicit drug use alcohol use and tobacco use altogether. Patient and his agree. Resources have been provided. (6) Chronic obstructive pulmonary disease, unspecified: Qualifiers: COPD type: unspecified COPD Qualified Code(s): J44.9 - Chronic obstructive pulmonary disease, unspecified Code(s): J44.9 - Chronic obstructive pulmonary disease, unspecified Status: Chronic Assessment and Plan: History of COPD likely secondary to being a former smok
--- NOTE | 2024-01-26 11:10 | PC.NURSE ---
Transferred from ICU to room 315-2 per recliner.
--- NOTE | 2024-01-26 11:16 | PC.NURSE ---
This patient, Francis Montes, was transferred to [facility] on 01/26/24 at 1110. Personal belongings sent with patient. Report given to Giselle Harley Appropriate documentation sent with patient.
--- NOTE | 2024-01-26 14:42 | PM.CNOR ---
Assessment and Plan Assessment and plan (1) Orthopedic aftercare: Code(s): Z47.89 - Encounter for other orthopedic aftercare <TOMA Lizarraga - Last Filed: 01/26/24 15:31> Status: Acute <TOMA Lizarraga - Last Filed: 01/26/24 15:31> (2) Complete tear of left rotator cuff: Qualifiers: Encounter type: initial encounter Rotator cuff tear trauma status: traumatic Qualified Code(s): S46.012A - Strain of muscle(s) and tendon(s) of the rotator cuff of left shoulder, initial encounter <TOMA Lizarraga - Last Filed: 01/26/24 15:31> Code(s): M75.122 - Complete rotator cuff tear or rupture of left shoulder, not specified as traumatic <TOMA Lizarraga - Last Filed: 01/26/24 15:31> Status: Acute <TOMA Lizarraga - Last Filed: 01/26/24 15:31> Assessment and Plan: Patient is approximately 7 weeks post rotator cuff repair. DOS: 12/08/23. Surgical findings: Massive rotator cuff tear.? Moderate retraction of the supraspinatus which was repairable without undue tension.? The posterior infraspinatus was atrophied and there was significant retraction.? Margin convergence was used at this portion of the posterior aspect of the tear.? Several mattress sutures and luggage tag sutures were used to reapproximate the posterior cuff into a lateral SwiveLock anchor.? Bone quality was very poor in general.? There was no arthritis.? Modest acromioplasty without CA ligament release was performed to prevent the development anterior escape. Patient has been ill and has not been in the office for post op visits. Patient somnolent at the time of my visit. History from his . She notes he was doing pretty well until he started having shaking events and generalized weakness. He was admitted to the hospital and has been intubated. No longer intubated and is doing better. He is unable to lift the arm. He has not attempted to. He is very stiff. Will start PT. Basic range of motion exercises. He may discontinue the sling. Weight bearing as tolerated with the arm. We discussed the risk of the repair not healing especially with his recent hospitalization and overall health. He will follow up in the office when able. <TOMA Lizarraga - Last Filed: 01/26/24 15:31> History of Present Illness HPI Consult date: 01/26/24 <TOMA Lizarraga - Last Filed: 01/26/24 15:31> 01/27/24 <Saeid Bradford MD - Last Filed: 01/27/24 10:56> Chief complaint: ETOH withdrawals <TOMA Lizarraag - Last Filed: 01/26/24 15:31> Narrative: Patient was admitted to the hospital 01/14 after having shakes and generalized weakness. He was having seizure like activity. He has been intubated and in the ICU for a while. Patient is very sleepy. Speaking with patient's . He has not had his sling on since being in the hospital. Patient had a rotator cuff repair on 12/08/23 for a massive rotator cuff tear. He has not had therapy on his shoulder. Notes some mild pain in the shoulder. Worse with motion. No numbness or tingling. He has not moved his shoulder since surgery. <TOMA Lizarraga - Last Filed: 01/26/24 15:31> Review of Systems Review of Systems: All systems reviewed & are unremarkable except as noted in HPI and below <TOMA Lizarraga - Last Filed: 01/26/24 15:31> [facility] Past Medical History Medical History: Medical History (Updated 01/26/24 @ 16:15 by Félix Cardoso MD) Acute on chronic anemia Alcohol dependence Alcohol withdrawal seizure Alcoholic cirrhosis Chronic obstructive pulmonary disease, unspecified Cirrhosis of liver COPD (chronic obstructive pulmonary disease) Depression with anxiety Diabetes mellitus Diabetes mellitus type 2 in obese Gout Hepatitis A Injury of left shoulder Nicotine dependence Occult blood in stools Onychomycosis Peripheral neuropathy Peripheral neuropathy Peripher
--- NOTE | 2024-01-26 16:13 | WPDGIPROGNO ---
Progress Note: A&P Assessment and Plan (1) Acute on chronic anemia: Code(s): D64.9 - Anemia, unspecified Status: Acute Assessment and Plan: hgb stable, on admission noted hematoma in abdomen he is not currently receiving blood thinner no overt gib right now is not a good timing to do scopes, this can be arranged electively as outpatient after fully recovered from this hospitalization also needs follow-up in office, h/o alcohol cirrhosis will follow as needed (2) Cirrhosis of liver: Code(s): K74.60 - Unspecified cirrhosis of liver Status: Acute Assessment and Plan: alcohol cessation nutrition support (3) Hematoma of muscle: Code(s): T14.8XXA - Other injury of unspecified body region, initial encounter Status: Acute (4) Alcohol withdrawal: Code(s): F10.939 - Alcohol use, unspecified with withdrawal, unspecified Status: Acute Assessment and Plan: on meds, thiamine, ciwa protocol (5) COPD (chronic obstructive pulmonary disease): Qualifiers: COPD type: unspecified COPD Qualified Code(s): J44.9 - Chronic obstructive pulmonary disease, unspecified Code(s): J44.9 - Chronic obstructive pulmonary disease, unspecified Status: Acute (6) Alcohol dependence: Qualifiers: Substance use status: unspecified alcohol-induced disorder Qualified Code(s): F10.29 - Alcohol dependence with unspecified alcohol-induced disorder Code(s): F10.20 - Alcohol dependence, uncomplicated Status: Acute (7) Occult blood in stools: Code(s): R19.5 - Other fecal abnormalities Status: Acute Subjective Date/time seen: 01/26/24 16:13 Interval history: moved to floor, no new events, some confusion but he is resting, using oxygen Review of Systems Review of Systems: All systems reviewed & are unremarkable except as noted in HPI and below Exam Const: General: comfortable and no acute distress HENMT: Face/Nose/Sinus: Normal nares present Eyes: Pupils: Equal, round and reactive pupils present Neck: Neck: supple Resp: Effort & Inspection: normal respiratory effort Auscultation: diminished lung sounds Cardio: Rate: regular rate Rhythm: abnormal rhythm Heart sounds: no gallops, no murmurs and no rubs GI: GI Palp: Yes Soft to palpation, No Tenderness to palpation present (GI) and No Guarding due to palpation present (GI) Auscultation: normal bowel sounds Skin: General skin exam: no rashes or lesions noted Neuro: Speech: normal speech Other: awake, alert, some tremors Extrem: General: no edema Psych: Affect: Anxious affect present Objective Data Vital Signs Vital Signs: Vital Signs - 24 hr 01/25/24 19:44 01/25/24 19:46 01/25/24 20:00 Temperature 99.1 F Pulse Rate 87 87 84 Respiratory Rate 15 16 Blood Pressure 129/75 Pulse Oximetry 100 98 Oxygen Delivery Nasal Cannula Oxygen Flow Rate 2 01/25/24 22:12 01/26/24 00:00 01/26/24 00:00 Temperature 98.4 F Pulse Rate 90 87 95 Respiratory Rate 18 Blood Pressure 121/84 Pulse Oximetry 100 Oxygen Delivery Oxygen Flow Rate 01/26/24 02:56 01/26/24 08:30 01/26/24 08:37 Temperature Pulse Rate 92 106 H Respiratory Rate Blood Pressure Pulse Oximetry 98 Oxygen Delivery Nasal Cannula Oxygen Flow Rate 2 01/26/24 08:00 01/26/24 08:00 01/26/24 08:00 Temperature 98.4 F Pulse Rate 94 94 94 Respiratory Rate 18 18 Blood Pressure 159/78 H Pulse Oximetry 99 99 Oxygen Delivery Nasal Cannula Oxygen Flow Rate 2 01/26/24 11:20 01/26/24 12:00 01/26/24 14:00 Temperature 97.5 F L 97.8 F Pulse Rate 78 87 Respiratory Rate 18 18 Blood Pressure 105/59 L 100/64 Pulse Oximetry 97 97 98 Oxygen Delivery Nasal Cannula Oxygen Flow Rate 2 Intake/Output Intake/Output: Intake & Output 01/23/24 01/24/24 01/25/24 01/26/24 23:59 23:59 23:59 23:59 Intake Total 933.8 1768.2 1360 640 Ou
[2024-01-26] MEDS: DOCUSATE SODIUM LIQ 100 MG/10 ML UDC FEED TUBE (21:19)
[2024-01-27] VITALS (8 sets, daily range): BP systolic 132–154; BP diastolic 51–83; PULSE 64–90; RESP 16–20; TEMP 36.3–36.7; O2SAT 88–100
[2024-01-27] MEDS: ALPRAZolam (*CRX) 0.5 MG TABLET PO ×3 (05:34→21:19)
[2024-01-27 06:09] LABS: Basophils Percent Auto 0.7 % (0.2-1.2); Eosinophils Absolute Auto 0.1 K/mm3 (0-0.3); Eosinophils Percent Auto 2.3 % (0-4.4); Hematocrit 28.9 % (42.0-52.0); Hemoglobin 9.6 g/dL (14.0-18.0); Immature Granulocyte Absolute 0.01 K/mm3 (0.00-0.031); Immature Granulocyte Percent A 0.2 % (0-0.5); Lymphocytes Absolute Auto 1.31 K/mm3 (0.9-3.2); Lymphocytes Percent Auto 23.6 % (18.3-44.2); Mean Corpuscular HGB Conc 33.2 g/dl (32-36); Mean Corpuscular Hemoglobin 33.1 pg (26-34); Mean Corpuscular Volume 99.7 fl (80-100); Mean Platelet Volume 8.9 fl (7.4-10.4); Monocytes Absolute Auto 0.6 K/mm3 (0.1-0.6); Monocytes Percent Auto 11.5 % (2.6-8.5); Neutrophils Absolute Auto 3.4 K/mm3 (1.3-6.7); Neutrophils Percent Auto 61.7 % (45.5-73.1); Platelet Count Result 110 k/mm3 (150-375); Red Cell Distribution Width 14.4 % (11.5-14.5); White Blood Count 5.6 K/mm3 (4.5-10.0)
[2024-01-27 06:23] LABS: Alanine Aminotransferase 17 U/L (6-50); Albumin Level 3.9 g/dL (3.5-5.1); Alkaline Phosphatase 68 U/L (38-126); Anion Gap 2 mmol/L (4-12); Aspartate Amino Transferase 36 U/L (17-59); Blood Urea Nitrogen 15 mg/dL (9-20); Calcium 9.1 mg/dL (8.4-10.2); Carbon Dioxide 36 mmol/L (22-30); Chloride 94 mmol/L (98-107); Estimated CRCL calculation 100 ml/min; Estimated Glomerular Filt Rate > 60; Glucose 96 mg/dL (65-110); Magnesium 1.6 mg/dL (1.6-2.3); Phosphorus 3.2 mg/dL (2.5-4.5); Sodium 132 mmol/L (137-145)
[2024-01-27] MEDS: UMECLIDINIUM/VILANTEROL 62.5-25 MCG ELLIPTA 1 PUFF INHALATION (08:11)
[2024-01-27] MEDS: DOCUSATE SODIUM LIQ 100 MG/10 ML UDC FEED TUBE ×2 (08:26→21:12)
[2024-01-27] MEDS: PANTOPRAZOLE SODIUM IV 40 MG VIAL IV PUSH ×2 (08:26→21:12)
[2024-01-27] MEDS: polyethylene glycoL 3350 17 GM POWD.PACK PO (08:27)
[2024-01-27] MEDS: busPIRone HCL 10 MG TABLET PO ×2 (08:27→21:12)
[2024-01-27] MEDS: METOPROLOL TARTRATE 25 MG TABLET PO ×2 (08:27→21:12)
[2024-01-27] MEDS: amLODIPine BESYLATE 5 MG TABLET 10 MG PO (08:28)
[2024-01-27] MEDS: ATORVASTATIN 10 MG TABLET PO (08:29)
[2024-01-27] MEDS: DULoxetine HCL 60 MG CAPSULE.DR PO (08:29)
[2024-01-27] MEDS: GABAPENTIN 300 MG CAPSULE 600 MG PO ×3 (08:30→16:46)
[2024-01-27] MEDS: FOLIC ACID 1 MG TABLET FEED TUBE (08:30)
[2024-01-27] MEDS: levETIRAcetam 500MG/NACL 100ML 500 MG/100 ML BAG 400 MG IVPB ×2 (08:30→21:12)
[2024-01-27] MEDS: TOLNAFTATE 1% POWDER 45 GM BTL 1 APPLIC TOPICAL ×2 (08:31→21:12)
[2024-01-27] MEDS: THIAMINE HCL 100 MG TABLET FEED TUBE (08:31)
--- NOTE | 2024-01-27 11:59 | PCNFU ---
Nutrition Follow-Up Complete: Last recorded weight is 87.4 kg. Weight up 27 lbs/17% x 12 days. Bowel Motility: BM 01/25. GI abd soft Labs Reviewed: Na 132 Meds Noted: Dulcolax, MiraLAX, Thiamine, Protonix, Zofran, Folic acid, Colace Skin: No breakdown noted Additional Notes: Patient reports he is feeling better and appetite is pretty good this morning. He is eating a cookie. Intake: 10-25% x 3 meals (01/24), and 60-75% x 3 meals (01/25); intake improving. He prefers the Ensure Compact in chocolate only. Denies nausea, vomiting, constipation. C/o diarrhea but stool aids ordered. NFPE: well nourished with no signs of muscle/fat wasting. Edema: bilateral arm/hand +1. UBW 200-250 lbs (per patient). Will monitor weight status. Pt current nutrition is heart-healthy diet with ONS of Ensure Compact BID. Increased protein energy needs related to mechanical ventilation as evidenced by need for full tube feeding. Discontinue, patient no longer on TF (New) Inadequate oral intake related to variable appetite as evidenced by intake at meals averaging <50%. Nutrition recommendation: 1. Continue with a heart-healthy diet. Monitor for diet liberalization pending review of intake on f/u. Monitor for fluid restriction. 2. Ensure Compact BID. Chocolate preference discussed with room service. 3. Will monitor weight. Monitoring appetite/intake, weight status, labs, POC Follow-up on day 5
--- NOTE | 2024-01-27 13:21 | WPDNEUROLOGY ---
Neurology EEG Report General Information Date of Study: 01/26/24 TEST electroencephalogram DIAGNOSIS seizure like activity, chronic alcoholism, alcohol withdrawal syndrome CONDITION OF RECORDING bedside EEG NUMBER [id number] CLINICAL HISTORY History of seizure-like activity alcohol withdrawal syndrome. EEG DESCRIPTION During wakefulness the background activity consists of posterior dominant rhythm in alpha range at 8 hertz with an amplitude of 15-30 microvolts which appears mildly formed. Anteriorly low amplitude mixed frequency activity was seen. There is no significant anteroposterior gradient. Hyperventilation or photic stimulation were not performed. Patient was noted to be intermittently drowsy during which attenuation of background activity was seen however patient did not progress to stage 2 sleep. IMPRESSION This is a normal EEG obtained during awake and drowsy states.
[2024-01-27] MEDS: IPRATROPIUM 0.5 MG/ALBUTEROL SULFATE 2.5 MG AMPUL.NEB 3 ML INHALATION (19:18)
[2024-01-28] VITALS (14 sets, daily range): BP systolic 128–138; BP diastolic 58–88; PULSE 62–70; RESP 14–20; TEMP 36.2–38.1; O2SAT 82–100
[2024-01-28] MEDS: IPRATROPIUM 0.5 MG/ALBUTEROL SULFATE 2.5 MG AMPUL.NEB 3 ML INHALATION (02:47)
[2024-01-28] MEDS: ACETAMINOPHEN 500 MG TABLET 1000 MG PO ×2 (04:54→16:25)
[2024-01-28 06:08] LABS: Basophils Percent Auto 0.3 % (0.2-1.2); Eosinophils Percent Auto 0.2 % (0-4.4); Hematocrit 30.9 % (42.0-52.0); Hemoglobin 10.5 g/dL (14.0-18.0); Immature Granulocyte Absolute 0.04 K/mm3 (0.00-0.031); Immature Granulocyte Percent A 0.3 % (0-0.5); Immature Platelet Fraction Pct 2.2 % (0.9-11.2); Lymphocytes Absolute Auto 0.76 K/mm3 (0.9-3.2); Lymphocytes Percent Auto 6.6 % (18.3-44.2); Mean Corpuscular Hemoglobin 33.9 pg (26-34); Mean Corpuscular Volume 99.7 fl (80-100); Mean Platelet Volume 8.8 fl (7.4-10.4); Monocytes Absolute Auto 0.9 K/mm3 (0.1-0.6); Monocytes Percent Auto 7.8 % (2.6-8.5); Neutrophils Absolute Auto 9.7 K/mm3 (1.3-6.7); Neutrophils Percent Auto 84.8 % (45.5-73.1); Platelet Count Result 134 k/mm3 (150-375); Red Cell Distribution Width 14.6 % (11.5-14.5); White Blood Count 11.5 K/mm3 (4.5-10.0)
[2024-01-28 06:18] LABS: Alanine Aminotransferase 20 U/L (6-50); Albumin Level 3.6 g/dL (3.5-5.1); Alkaline Phosphatase 71 U/L (38-126); Anion Gap 3 mmol/L (4-12); Aspartate Amino Transferase 39 U/L (17-59); Bilirubin,Total 2.6 mg/dL (0.2-1.3); Blood Urea Nitrogen 16 mg/dL (9-20); Carbon Dioxide 35 mmol/L (22-30); Chloride 96 mmol/L (98-107); Estimated CRCL calculation 88 ml/min; Estimated Glomerular Filt Rate > 60; Glucose 93 mg/dL (65-110); Magnesium 1.3 mg/dL (1.6-2.3); Phosphorus 3.1 mg/dL (2.5-4.5); Potassium 4.8 mmol/L (3.4-5.0); Sodium 134 mmol/L (137-145)
[2024-01-28] MEDS: UMECLIDINIUM/VILANTEROL 62.5-25 MCG ELLIPTA 1 PUFF INHALATION (07:08)
[2024-01-28] MEDS: DOCUSATE SODIUM LIQ 100 MG/10 ML UDC FEED TUBE ×2 (08:18→20:37)
[2024-01-28] MEDS: polyethylene glycoL 3350 17 GM POWD.PACK PO (08:18)
[2024-01-28] MEDS: METOPROLOL TARTRATE 25 MG TABLET PO ×2 (08:18→20:36)
[2024-01-28] MEDS: GABAPENTIN 300 MG CAPSULE 600 MG PO ×3 (08:19→16:25)
[2024-01-28] MEDS: FOLIC ACID 1 MG TABLET FEED TUBE (08:19)
[2024-01-28] MEDS: amLODIPine BESYLATE 5 MG TABLET 10 MG PO (08:19)
[2024-01-28] MEDS: ATORVASTATIN 10 MG TABLET PO (08:19)
[2024-01-28] MEDS: DULoxetine HCL 60 MG CAPSULE.DR PO (08:20)
[2024-01-28] MEDS: PANTOPRAZOLE SODIUM IV 40 MG VIAL IV PUSH ×2 (08:20→20:37)
[2024-01-28] MEDS: busPIRone HCL 10 MG TABLET PO ×2 (08:20→20:36)
[2024-01-28] MEDS: levETIRAcetam 500MG/NACL 100ML 500 MG/100 ML BAG 400 MG IVPB (08:20)
[2024-01-28] MEDS: TOLNAFTATE 1% POWDER 45 GM BTL 1 APPLIC TOPICAL ×2 (08:20→20:37)
[2024-01-28] MEDS: guaiFENesin/DEXTROMETHORPHAN 10 ML UDC PO ×3 (08:20→16:25)
[2024-01-28] MEDS: THIAMINE HCL 100 MG TABLET FEED TUBE (08:20)
[2024-01-28] MEDS: MAGNESIUM SULF 2 GM/WATER 50ML 2 GM/50 ML BAG IVPB (12:15)
--- NOTE | 2024-01-28 12:28 | PM.IMPN ---
Progress Note: A&P Assessment and Plan (1) Anxiety: Code(s): F41.9 - Anxiety disorder, unspecified Status: Acute Assessment and Plan: While inpatient the patient has had panic attacks -this could be related to agoraphobia -patient's home gabapentin has been restarted -low-dose Xanax p.r.n. is helping to alleviate his symptoms -off Precedex infusion -PT/OT to continue to work with patient -up in chair -discontinue telemetry. It is causing the patient to much anxiety. (2) Acute respiratory failure with hypoxia: Code(s): J96.01 - Acute respiratory failure with hypoxia Status: Acute Assessment and Plan: Patient presented with generalized weakness, became obtunded in the ER, tachycardic, delete aureus, tremulous, was given 10 mg Ativan was not responding to questions and was confused, ER physician decided to intubate the patient for impending respiratory failure after discussing with the family. Appears to have severe COPD at baseline. He is on home oxygen 01/15 intubated 01/16-01/17 12/31 PSV weaning trial was performed. Patient showed hypercarbia and respiratory acidosis. Increased work of breathing and use of abdominal muscles for breathing. He will not be able to use BiPAP if extubated. Not a candidate for extubation at this time. Changed sedation to Precedex 01/18 extubated and reintubated due to inability to tolerate BiPAP and respiratory distress 01/20 failed PSV weaning trial 01/21 self-extubated. Rather than reintubate and we decided to give patient a trial and see if he maintains his respiratory status Currently on 2 L nasal cannula with adequate O2 sats. If patient desaturates he may benefit from high-flow therapy He is agreeable to intubation if needed. -continue bronchodilators -no wheezing on exam hence not on steroids -Continue to monitor closely Chest x-ray: No acute cardiopulmonary disease (3) Acute metabolic encephalopathy: Code(s): G93.41 - Metabolic encephalopathy Status: Acute Assessment and Plan: Much improved Acute metabolic encephalopathy could be multifactorial sepsis, alcohol withdrawal, hyponatremia, anemia -ammonia levels within normal limits -TSH 0.31 free T4 1.14 -off Precedex infusion (4) Alcohol withdrawal: Code(s): F10.939 - Alcohol use, unspecified with withdrawal, unspecified Status: Acute Assessment and Plan: History of alcohol use, drinks 12 pack of beer per day (however now on 01/24 reports he drinks 5-6 beers only once per week) Patient was found to be delirious, obtunded, tremulous, tachycardic in the ER, patient was given Ativan after he became more delirious and confused and had to be intubated and placed on mechanical ventilation -off Precedex (5) Alcohol dependence: Qualifiers: Substance use status: unspecified alcohol-induced disorder Qualified Code(s): F10.29 - Alcohol dependence with unspecified alcohol-induced disorder Code(s): F10.20 - Alcohol dependence, uncomplicated Status: Acute Assessment and Plan: History of alcohol dependence, patient's drinks 12 pack of beer per day -continue folic acid and thiamine -counseling provided to abstain from illicit drug use alcohol use and tobacco use altogether. Patient and his agree. Resources have been provided. (6) Chronic obstructive pulmonary disease, unspecified: Qualifiers: COPD type: unspecified COPD Qualified Code(s): J44.9 - Chronic obstructive pulmonary disease, unspecified Code(s): J44.9 - Chronic obstructive pulmonary disease, unspecified Status: Chronic Assessment and Plan: History of COPD likely secondary to being a former smoker, patient smoked 3 packs per day for 35 years -continue home Ellipta and bronchodilators -no wheezing noted, no indications for steroids at this time -On nasal cannula -he is chronically on this at home uses nasal cannula intermittently Will add Pulmicort (7) Sepsis
[2024-01-28] MEDS: ALPRAZolam (*CRX) 0.5 MG TABLET PO ×2 (17:24→20:36)
[2024-01-28] MEDS: levETIRAcetam 500MG/NACL 100ML 500 MG/100 ML BAG 100 MG IVPB (20:37)
[2024-01-28] MEDS: BUDESONIDE RESPULE NEB 0.5 MG/2 ML AMP INHALATION ×2 (21:01)
[2024-01-29] VITALS (12 sets, daily range): BP systolic 99–123; BP diastolic 49–60; PULSE 52–106; RESP 12–22; TEMP 36.6–36.8; O2SAT 90–98
[2024-01-29 02:40] LABS: Appearance Urine Clear (Clear); Bacteria Urine Rare /hpf; Bilirubin Urine 1+ (Negative); Blood Urine Negative (Negative); Color Urine Dark Yellow (Yellow); Glucose Urine UA Negative (Negative); Ketones Urine Negative (Negative); Leukocyte Esterase Ur 1+ LEU/UL (Negative); Need Manual Microscopic Reviewed; Nitrate Urine Positive (Negative); Protein Urine Trace mg/dL (Negative); RBC Urine 0-2 /hpf (0-2); Specific Grav Ur 1.017 (1.001-1.035); Squamous Epithelial Cell Urine None Seen /hpf (Few); WBC Urine 0-5 /hpf (0-3); pH Urine 5.5 (5.0-9.0)
[2024-01-29 02:49] LABS: Add Urine Microscopic? YES
[2024-01-29] MEDS: ALPRAZolam (*CRX) 0.5 MG TABLET PO ×2 (05:46→21:10)
[2024-01-29 05:57] LABS: Basophils Percent Auto 0.3 % (0.2-1.2); Eosinophils Absolute Auto 0.1 K/mm3 (0-0.3); Eosinophils Percent Auto 0.8 % (0-4.4); Hematocrit 28.1 % (42.0-52.0); Hemoglobin 9.3 g/dL (14.0-18.0); Immature Granulocyte Absolute 0.03 K/mm3 (0.00-0.031); Immature Granulocyte Percent A 0.4 % (0-0.5); Immature Platelet Fraction Pct 2.8 % (0.9-11.2); Lymphocytes Absolute Auto 0.95 K/mm3 (0.9-3.2); Lymphocytes Percent Auto 13.5 % (18.3-44.2); Mean Corpuscular HGB Conc 33.1 g/dl (32-36); Mean Corpuscular Hemoglobin 33.3 pg (26-34); Mean Corpuscular Volume 100.7 fl (80-100); Mean Platelet Volume 9.3 fl (7.4-10.4); Monocytes Absolute Auto 0.5 K/mm3 (0.1-0.6); Monocytes Percent Auto 6.9 % (2.6-8.5); Neutrophils Absolute Auto 5.5 K/mm3 (1.3-6.7); Neutrophils Percent Auto 78.1 % (45.5-73.1); Platelet Count Result 107 k/mm3 (150-375); Red Blood Count 2.79 M/mm3 (4.6-6.20); Red Cell Distribution Width 14.6 % (11.5-14.5); White Blood Count 7.1 K/mm3 (4.5-10.0)
[2024-01-29 06:14] LABS: Alanine Aminotransferase 22 U/L (6-50); Albumin Level 3.8 g/dL (3.5-5.1); Alkaline Phosphatase 84 U/L (38-126); Anion Gap 3 mmol/L (4-12); Aspartate Amino Transferase 39 U/L (17-59); Bilirubin,Total 2.5 mg/dL (0.2-1.3); Blood Urea Nitrogen 22 mg/dL (9-20); Calcium 9.1 mg/dL (8.4-10.2); Carbon Dioxide 33 mmol/L (22-30); Chloride 97 mmol/L (98-107); Estimated CRCL calculation 79 ml/min; Estimated Glomerular Filt Rate > 60; Glucose 112 mg/dL (65-110); Magnesium 1.8 mg/dL (1.6-2.3); Phosphorus 2.7 mg/dL (2.5-4.5); Potassium 4.2 mmol/L (3.4-5.0); Sodium 133 mmol/L (137-145)
[2024-01-29] MEDS: UMECLIDINIUM/VILANTEROL 62.5-25 MCG ELLIPTA 1 PUFF INHALATION (08:04)
[2024-01-29] MEDS: BUDESONIDE RESPULE NEB 0.5 MG/2 ML AMP INHALATION ×2 (08:05→19:36)
[2024-01-29] MEDS: METOPROLOL TARTRATE 25 MG TABLET PO (08:47)
[2024-01-29] MEDS: amLODIPine BESYLATE 5 MG TABLET 10 MG PO (08:47)
[2024-01-29] MEDS: busPIRone HCL 10 MG TABLET PO ×2 (08:47→21:10)
[2024-01-29] MEDS: GABAPENTIN 300 MG CAPSULE 600 MG PO ×3 (08:47→16:58)
[2024-01-29] MEDS: DULoxetine HCL 60 MG CAPSULE.DR PO (08:47)
[2024-01-29] MEDS: FOLIC ACID 1 MG TABLET FEED TUBE (08:47)
[2024-01-29] MEDS: THIAMINE HCL 100 MG TABLET FEED TUBE (08:47)
[2024-01-29] MEDS: ATORVASTATIN 10 MG TABLET PO (08:47)
[2024-01-29] MEDS: ACETAMINOPHEN 500 MG TABLET 1000 MG PO ×2 (08:47→17:00)
[2024-01-29] MEDS: DOCUSATE SODIUM LIQ 100 MG/10 ML UDC FEED TUBE (08:48)
[2024-01-29] MEDS: TOLNAFTATE 1% POWDER 45 GM BTL 1 APPLIC TOPICAL ×2 (08:48→21:10)
[2024-01-29] MEDS: levETIRAcetam 500MG/NACL 100ML 500 MG/100 ML BAG 100 MG IVPB (08:48)
[2024-01-29] MEDS: polyethylene glycoL 3350 17 GM POWD.PACK PO (08:48)
[2024-01-29] MEDS: PANTOPRAZOLE SODIUM IV 40 MG VIAL IV PUSH (08:48)
[2024-01-29] MEDS: guaiFENesin/DEXTROMETHORPHAN 10 ML UDC PO (08:55)
--- NOTE | 2024-01-29 09:09 | PM.IMPN ---
Progress Note: A&P Assessment and Plan (1) Anxiety: Code(s): F41.9 - Anxiety disorder, unspecified Status: Acute Assessment and Plan: While inpatient the patient has had panic attacks -this could be related to agoraphobia -patient's home gabapentin has been restarted -low-dose Xanax p.r.n. is helping to alleviate his symptoms -off Precedex infusion -PT/OT to continue to work with patient -up in chair -discontinue telemetry. It is causing the patient to much anxiety. Will change Xanax to p.r.n. as getting scheduled (2) Acute respiratory failure with hypoxia: Code(s): J96.01 - Acute respiratory failure with hypoxia Status: Acute Assessment and Plan: Patient presented with generalized weakness, became obtunded in the ER, tachycardic, delete aureus, tremulous, was given 10 mg Ativan was not responding to questions and was confused, ER physician decided to intubate the patient for impending respiratory failure after discussing with the family. Appears to have severe COPD at baseline. He is on home oxygen 01/15 intubated 01/16-01/17 12/31 PSV weaning trial was performed. Patient showed hypercarbia and respiratory acidosis. Increased work of breathing and use of abdominal muscles for breathing. He will not be able to use BiPAP if extubated. Not a candidate for extubation at this time. Changed sedation to Precedex 01/18 extubated and reintubated due to inability to tolerate BiPAP and respiratory distress 01/20 failed PSV weaning trial 01/21 self-extubated. Rather than reintubate and we decided to give patient a trial and see if he maintains his respiratory status Currently on 2 L nasal cannula with adequate O2 sats. If patient desaturates he may benefit from high-flow therapy He is agreeable to intubation if needed. -continue bronchodilators -no wheezing on exam hence not on steroids -Continue to monitor closely Chest x-ray/: No acute cardiopulmonary disease Pulmicort added (3) Acute metabolic encephalopathy: Code(s): G93.41 - Metabolic encephalopathy Status: Acute Assessment and Plan: Much improved Acute metabolic encephalopathy could be multifactorial sepsis, alcohol withdrawal, hyponatremia, anemia -ammonia levels within normal limits -TSH 0.31 free T4 1.14 -off Precedex infusion (4) Alcohol withdrawal: Code(s): F10.939 - Alcohol use, unspecified with withdrawal, unspecified Status: Acute Assessment and Plan: History of alcohol use, drinks 12 pack of beer per day (however now on 01/24 reports he drinks 5-6 beers only once per week) Patient was found to be delirious, obtunded, tremulous, tachycardic in the ER, patient was given Ativan after he became more delirious and confused and had to be intubated and placed on mechanical ventilation -off Precedex Improving (5) Alcohol dependence: Qualifiers: Substance use status: unspecified alcohol-induced disorder Qualified Code(s): F10.29 - Alcohol dependence with unspecified alcohol-induced disorder Code(s): F10.20 - Alcohol dependence, uncomplicated Status: Acute Assessment and Plan: History of alcohol dependence, patient's drinks 12 pack of beer per day -continue folic acid and thiamine -counseling provided to abstain from illicit drug use alcohol use and tobacco use altogether. Patient and his agree. Resources have been provided. (6) Chronic obstructive pulmonary disease, unspecified: Qualifiers: COPD type: unspecified COPD Qualified Code(s): J44.9 - Chronic obstructive pulmonary disease, unspecified Code(s): J44.9 - Chronic obstructive pulmonary disease, unspecified Status: Chronic Assessment and Plan: History of COPD likely secondary to being a former smoker, patient smoked 3 packs per day for 35 years -continue home Ellipta and bronchodilators -no wheezing noted, no indications for steroids at this time -On nasal cannula -he is chronically on
[2024-01-29 10:08] LABS: Lactic Acid Reflex 1.2 mmol/L (0.7-2.0)
[2024-01-29 10:41] LABS: Alveolar/Arterial O2 Gradient 81.4 mmHg; Base Excess ABG 7.7 mEq/l (+/-2.0); Fractional Inspired Oxygen 36 %; HCO3 ABG 33.6 mEq/l (22.0-26.0); Oxyhemoglobin 96.6 % THb (90.0-100.0); PCO2 ABG 54.7 mmHg (35.0-45.0); PO2 ABG 111.8 mmHg (80.0-100.0); PO2 FiO2 Ratio Arterial Blood 3.11 %; Total Hemoglobin 9.4 g/dL (12.0-18.0); pH ABG 7.406 (7.350-7.450)
[2024-01-29 10:44] LABS: Device NASAL CANNULA; Site Drawn RIGHT BRACHIAL
[2024-01-29] MEDS: methylPREDNISolone SOD SUCC 40 MG VIAL IV PUSH ×2 (11:40→17:00)
[2024-01-29] MEDS: PIPERACILLN/TAZ 3.375GM/NS50ML 3.375 GM/50 ML BAG IVPB ×3 (11:40→21:10)
--- NOTE | 2024-01-29 11:44 | PCPTNOTE ---
Attempted to see patient for PT, however patient unable to wake up enough to participate with therapy.
[2024-01-29 12:55] LABS: NT Pro B Type Natriuretic Pept 1110 pg/mL (19.9-100)
--- NOTE | 2024-01-29 13:07 | PCSTNOTE ---
Please refer to the Bedside Swallow Evaluation in the EMR. Please note, silent aspiration cannot be ruled out at bedside.
[2024-01-29] MEDS: FUROSEMIDE INJ 40 MG/4 ML VIAL 20 MG IV PUSH (16:57)
[2024-01-29] MEDS: DOCUSATE SODIUM LIQ 100 MG/10 ML UDC BY MOUTH (21:10)
[2024-01-29] MEDS: levETIRAcetam 500 MG TABLET PO (21:10)
--- NOTE | 2024-01-29 21:15 | PC.NURSE ---
Pt has been trying to get out of bed since I arrived on shift, although requires a sit to stand machine to stand. Pt has been cussing and yelling at staff. We currently have him back in the bed safely, due to him refusing to use the lift for us to assist him to stand. Pt is very difficult to re-direct and remains belligerent. Xanax given in hopes to calm pt and keep him safely in the bed.
[2024-01-30] VITALS (13 sets, daily range): BP systolic 78–130; BP diastolic 50–70; PULSE 79–95; RESP 18–20; TEMP 36.7–37.1; O2SAT 90–100
[2024-01-30] MEDS: methylPREDNISolone SOD SUCC 40 MG VIAL IV PUSH ×2 (02:33→10:00)
[2024-01-30] MEDS: PIPERACILLN/TAZ 3.375GM/NS50ML 3.375 GM/50 ML BAG IVPB ×4 (05:29→21:43)
[2024-01-30] MEDS: ALPRAZolam (*CRX) 0.5 MG TABLET PO (05:29)
[2024-01-30 06:18] LABS: Hematocrit 24.7 % (42.0-52.0); Hemoglobin 8.1 g/dL (14.0-18.0); Immature Granulocyte Absolute 0.01 K/mm3 (0.00-0.031); Immature Granulocyte Percent A 0.3 % (0-0.5); Lymphocytes Absolute Auto 0.35 K/mm3 (0.9-3.2); Lymphocytes Percent Auto 9.4 % (18.3-44.2); Mean Corpuscular HGB Conc 32.8 g/dl (32-36); Mean Corpuscular Hemoglobin 33.1 pg (26-34); Mean Corpuscular Volume 100.8 fl (80-100); Mean Platelet Volume 9.7 fl (7.4-10.4); Monocytes Absolute Auto 0.1 K/mm3 (0.1-0.6); Monocytes Percent Auto 2.1 % (2.6-8.5); Neutrophils Absolute Auto 3.3 K/mm3 (1.3-6.7); Neutrophils Percent Auto 88.2 % (45.5-73.1); Platelet Count Result 103 k/mm3 (150-375); Red Blood Count 2.45 M/mm3 (4.6-6.20); Red Cell Distribution Width 14.1 % (11.5-14.5); White Blood Count 3.7 K/mm3 (4.5-10.0)
[2024-01-30 06:35] LABS: Alanine Aminotransferase 17 U/L (6-50); Albumin Level 3.6 g/dL (3.5-5.1); Alkaline Phosphatase 69 U/L (38-126); Anion Gap 3 mmol/L (4-12); Aspartate Amino Transferase 26 U/L (17-59); Bilirubin,Total 1.8 mg/dL (0.2-1.3); Blood Urea Nitrogen 21 mg/dL (9-20); Calcium 9.6 mg/dL (8.4-10.2); Carbon Dioxide 34 mmol/L (22-30); Chloride 98 mmol/L (98-107); Estimated CRCL calculation 79 ml/min; Estimated Glomerular Filt Rate > 60; Glucose 149 mg/dL (65-110); Magnesium 1.7 mg/dL (1.6-2.3); Potassium 4.2 mmol/L (3.4-5.0); Sodium 135 mmol/L (137-145)
[2024-01-30] MEDS: BUDESONIDE RESPULE NEB 0.5 MG/2 ML AMP INHALATION ×2 (08:32→20:07)
[2024-01-30] MEDS: UMECLIDINIUM/VILANTEROL 62.5-25 MCG ELLIPTA 1 PUFF INHALATION (08:53)
[2024-01-30] MEDS: polyethylene glycoL 3350 17 GM POWD.PACK PO (09:57)
[2024-01-30] MEDS: METOPROLOL TARTRATE 25 MG TABLET PO (09:57)
[2024-01-30] MEDS: GABAPENTIN 300 MG CAPSULE 600 MG PO ×3 (09:57→16:38)
[2024-01-30] MEDS: levETIRAcetam 500 MG TABLET PO (09:58)
[2024-01-30] MEDS: THIAMINE HCL 100 MG TABLET FEED TUBE (09:58)
[2024-01-30] MEDS: DULoxetine HCL 60 MG CAPSULE.DR PO (09:58)
[2024-01-30] MEDS: ATORVASTATIN 10 MG TABLET PO (09:58)
[2024-01-30] MEDS: PANTOPRAZOLE 40 MG TABLET PO (09:58)
[2024-01-30] MEDS: busPIRone HCL 10 MG TABLET PO (09:58)
[2024-01-30] MEDS: FOLIC ACID 1 MG TABLET FEED TUBE (09:58)
[2024-01-30] MEDS: DOCUSATE SODIUM LIQ 100 MG/10 ML UDC BY MOUTH (10:00)
[2024-01-30] MEDS: TOLNAFTATE 1% POWDER 45 GM BTL 1 APPLIC TOPICAL (10:01)
--- NOTE | 2024-01-30 15:19 | PM.IMPN ---
Progress Note: A&P Assessment and Plan (1) Anxiety: Code(s): F41.9 - Anxiety disorder, unspecified Status: Acute Assessment and Plan: While inpatient the patient has had panic attacks -this could be related to agoraphobia -patient's home gabapentin has been restarted -low-dose Xanax p.r.n. is helping to alleviate his symptoms -off Precedex infusion -PT/OT to continue to work with patient -up in chair -discontinue telemetry. It is causing the patient to much anxiety. Will change Xanax to p.r.n. as getting scheduled (2) Acute respiratory failure with hypoxia: Code(s): J96.01 - Acute respiratory failure with hypoxia Status: Acute Assessment and Plan: Patient presented with generalized weakness, became obtunded in the ER, tachycardic, delete aureus, tremulous, was given 10 mg Ativan was not responding to questions and was confused, ER physician decided to intubate the patient for impending respiratory failure after discussing with the family. Appears to have severe COPD at baseline. He is on home oxygen 01/15 intubated 01/16-01/17 12/31 PSV weaning trial was performed. Patient showed hypercarbia and respiratory acidosis. Increased work of breathing and use of abdominal muscles for breathing. He will not be able to use BiPAP if extubated. Not a candidate for extubation at this time. Changed sedation to Precedex 01/18 extubated and reintubated due to inability to tolerate BiPAP and respiratory distress 01/20 failed PSV weaning trial 01/21 self-extubated. Rather than reintubate and we decided to give patient a trial and see if he maintains his respiratory status Currently on 2 L nasal cannula with adequate O2 sats. If patient desaturates he may benefit from high-flow therapy He is agreeable to intubation if needed. -continue bronchodilators -no wheezing on exam hence not on steroids -Continue to monitor closely Chest x-ray/: No acute cardiopulmonary disease Pulmicort added added stroeid but will stop as not much wheezing today (3) Acute metabolic encephalopathy: Code(s): G93.41 - Metabolic encephalopathy Status: Acute Assessment and Plan: Much improved Acute metabolic encephalopathy could be multifactorial sepsis, alcohol withdrawal, hyponatremia, anemia -ammonia levels within normal limits -TSH 0.31 free T4 1.14 -off Precedex infusion on and off confusion persist (4) Alcohol withdrawal: Code(s): F10.939 - Alcohol use, unspecified with withdrawal, unspecified Status: Acute Assessment and Plan: History of alcohol use, drinks 12 pack of beer per day (however now on 01/24 reports he drinks 5-6 beers only once per week) Patient was found to be delirious, obtunded, tremulous, tachycardic in the ER, patient was given Ativan after he became more delirious and confused and had to be intubated and placed on mechanical ventilation -off Precedex Improving (5) Alcohol dependence: Qualifiers: Substance use status: unspecified alcohol-induced disorder Qualified Code(s): F10.29 - Alcohol dependence with unspecified alcohol-induced disorder Code(s): F10.20 - Alcohol dependence, uncomplicated Status: Acute Assessment and Plan: History of alcohol dependence, patient's drinks 12 pack of beer per day -continue folic acid and thiamine -counseling provided to abstain from illicit drug use alcohol use and tobacco use altogether. Patient and his agree. Resources have been provided. (6) Chronic obstructive pulmonary disease, unspecified: Qualifiers: COPD type: unspecified COPD Qualified Code(s): J44.9 - Chronic obstructive pulmonary disease, unspecified Code(s): J44.9 - Chronic obstructive pulmonary disease, unspecified Status: Chronic Assessment and Plan: History of COPD likely secondary to being a former smoker, patient smoked 3 packs per day for 35 years -continue home Ellipta and bronchodilators -no wheezing note
[2024-01-30] MEDS: QUEtiapine FUMARATE 12.5 MG TABLET PO (17:48)
[2024-01-30] MEDS: SODIUM CHLORIDE 0.9% IV 500 ML IV CONT (20:14)
[2024-01-30 21:05] LABS: Hematocrit 23.8 % (42.0-52.0)
[2024-01-31] VITALS (11 sets, daily range): BP systolic 90–144; BP diastolic 59–65; PULSE 64–112; RESP 18–20; TEMP 36.1–36.9; O2SAT 96–100
[2024-01-31] MEDS: PIPERACILLN/TAZ 3.375GM/NS50ML 3.375 GM/50 ML BAG IVPB ×4 (03:22→21:32)
[2024-01-31] MEDS: guaiFENesin/DEXTROMETHORPHAN 10 ML UDC PO (03:59)
[2024-01-31 06:41] LABS: Hematocrit 26.5 % (42.0-52.0); Hemoglobin 8.7 g/dL (14.0-18.0); Immature Granulocyte Absolute 0.05 K/mm3 (0.00-0.031); Immature Granulocyte Percent A 0.9 % (0-0.5); Lymphocytes Absolute Auto 0.76 K/mm3 (0.9-3.2); Lymphocytes Percent Auto 13.6 % (18.3-44.2); Mean Corpuscular HGB Conc 32.8 g/dl (32-36); Mean Corpuscular Hemoglobin 32.7 pg (26-34); Mean Corpuscular Volume 99.6 fl (80-100); Mean Platelet Volume 9.5 fl (7.4-10.4); Monocytes Absolute Auto 0.3 K/mm3 (0.1-0.6); Monocytes Percent Auto 5.5 % (2.6-8.5); Neutrophils Absolute Auto 4.5 K/mm3 (1.3-6.7); Platelet Count Result 115 k/mm3 (150-375); Red Blood Count 2.66 M/mm3 (4.6-6.20); Red Cell Distribution Width 14.3 % (11.5-14.5); White Blood Count 5.6 K/mm3 (4.5-10.0)
[2024-01-31 06:57] LABS: Alanine Aminotransferase 18 U/L (6-50); Albumin Level 3.5 g/dL (3.5-5.1); Alkaline Phosphatase 67 U/L (38-126); Anion Gap 4 mmol/L (4-12); Aspartate Amino Transferase 23 U/L (17-59); Bilirubin,Total 1.4 mg/dL (0.2-1.3); Blood Urea Nitrogen 21 mg/dL (9-20); Calcium 9.5 mg/dL (8.4-10.2); Carbon Dioxide 36 mmol/L (22-30); Chloride 100 mmol/L (98-107); Estimated CRCL calculation 88 ml/min; Estimated Glomerular Filt Rate > 60; Glucose 125 mg/dL (65-110); Magnesium 1.6 mg/dL (1.6-2.3); Potassium 3.8 mmol/L (3.4-5.0); Sodium 140 mmol/L (137-145)
[2024-01-31] MEDS: BUDESONIDE RESPULE NEB 0.5 MG/2 ML AMP INHALATION ×2 (07:35→19:23)
[2024-01-31] MEDS: UMECLIDINIUM/VILANTEROL 62.5-25 MCG ELLIPTA 1 PUFF INHALATION (07:37)
[2024-01-31] MEDS: ATORVASTATIN 10 MG TABLET PO (09:02)
[2024-01-31] MEDS: busPIRone HCL 10 MG TABLET PO ×2 (09:02→21:31)
[2024-01-31] MEDS: METOPROLOL TARTRATE 25 MG TABLET PO (09:02)
[2024-01-31] MEDS: THIAMINE HCL 100 MG TABLET FEED TUBE (09:02)
[2024-01-31] MEDS: FOLIC ACID 1 MG TABLET FEED TUBE (09:05)
[2024-01-31] MEDS: PANTOPRAZOLE 40 MG TABLET PO (09:05)
[2024-01-31] MEDS: levETIRAcetam 500 MG TABLET PO ×2 (09:05→21:31)
[2024-01-31] MEDS: GABAPENTIN 300 MG CAPSULE 600 MG PO ×3 (09:06→16:24)
[2024-01-31] MEDS: polyethylene glycoL 3350 17 GM POWD.PACK PO (09:06)
[2024-01-31] MEDS: QUEtiapine FUMARATE 12.5 MG TABLET PO ×2 (09:12→21:31)
[2024-01-31] MEDS: DULoxetine HCL 60 MG CAPSULE.DR PO (09:12)
[2024-01-31] MEDS: TOLNAFTATE 1% POWDER 45 GM BTL 1 APPLIC TOPICAL ×2 (09:12→21:32)
[2024-01-31] MEDS: SODIUM CHLORIDE 0.9% IV 250 ML BAG 500 ML IVPB (15:12)
--- NOTE | 2024-01-31 15:27 | PM.IMPN ---
Progress Note: A&P Assessment and Plan (1) Anxiety: Code(s): F41.9 - Anxiety disorder, unspecified Status: Acute Assessment and Plan: While inpatient the patient has had panic attacks -this could be related to agoraphobia -patient's home gabapentin has been restarted -low-dose Xanax p.r.n. is helping to alleviate his symptoms -off Precedex infusion -PT/OT to continue to work with patient -up in chair -discontinue telemetry. It is causing the patient to much anxiety. Will change Xanax to p.r.n. as getting scheduled (2) Acute respiratory failure with hypoxia: Code(s): J96.01 - Acute respiratory failure with hypoxia Status: Acute Assessment and Plan: Patient presented with generalized weakness, became obtunded in the ER, tachycardic, delete aureus, tremulous, was given 10 mg Ativan was not responding to questions and was confused, ER physician decided to intubate the patient for impending respiratory failure after discussing with the family. Appears to have severe COPD at baseline. He is on home oxygen 01/15 intubated 01/16-01/17 12/31 PSV weaning trial was performed. Patient showed hypercarbia and respiratory acidosis. Increased work of breathing and use of abdominal muscles for breathing. He will not be able to use BiPAP if extubated. Not a candidate for extubation at this time. Changed sedation to Precedex 01/18 extubated and reintubated due to inability to tolerate BiPAP and respiratory distress 01/20 failed PSV weaning trial 01/21 self-extubated. Rather than reintubate and we decided to give patient a trial and see if he maintains his respiratory status Currently on 2 L nasal cannula with adequate O2 sats. If patient desaturates he may benefit from high-flow therapy He is agreeable to intubation if needed. -continue bronchodilators -no wheezing on exam hence not on steroids -Continue to monitor closely Chest x-ray/: No acute cardiopulmonary disease Pulmicort added added stroeid but will stop as not much wheezing Oxygenation status stable (3) Acute metabolic encephalopathy: Code(s): G93.41 - Metabolic encephalopathy Status: Acute Assessment and Plan: Much improved Acute metabolic encephalopathy could be multifactorial sepsis, alcohol withdrawal, hyponatremia, anemia -ammonia levels within normal limits -TSH 0.31 free T4 1.14 -off Precedex infusion on and off confusion persist MRI brain with no acute finding EEG with seizure-like activity Suspect ICU delirium. Will recheck ammonia level Added Seroquel at night (4) Alcohol withdrawal: Code(s): F10.939 - Alcohol use, unspecified with withdrawal, unspecified Status: Acute Assessment and Plan: History of alcohol use, drinks 12 pack of beer per day (however now on 01/24 reports he drinks 5-6 beers only once per week) Patient was found to be delirious, obtunded, tremulous, tachycardic in the ER, patient was given Ativan after he became more delirious and confused and had to be intubated and placed on mechanical ventilation -off Precedex Improving On alprazolam p.r.n. (5) Alcohol dependence: Qualifiers: Substance use status: unspecified alcohol-induced disorder Qualified Code(s): F10.29 - Alcohol dependence with unspecified alcohol-induced disorder Code(s): F10.20 - Alcohol dependence, uncomplicated Status: Acute Assessment and Plan: History of alcohol dependence, patient's drinks 12 pack of beer per day -continue folic acid and thiamine -counseling provided to abstain from illicit drug use alcohol use and tobacco use altogether. Patient and his agree. Resources have been provided. (6) Chronic obstructive pulmonary disease, unspecified: Qualifiers: COPD type: unspecified COPD Qualified Code(s): J44.9 - Chronic obstructive pulmonary disease, unspecified Code(s): J44.9 - Chronic obstructive pulmonary disease, unspecified Status: Chronic Asse
[2024-01-31 16:40] LABS: Ammonia < 9 umol/L (9-30)
[2024-01-31] MEDS: METOPROLOL TARTRATE 12.5 MG TABLET PO (21:32)
[2024-01-31] MEDS: DOCUSATE SODIUM LIQ 100 MG/10 ML UDC BY MOUTH (21:32)
[2024-02-01] VITALS (12 sets, daily range): BP systolic 103–122; BP diastolic 48–70; PULSE 62–106; RESP 18–20; TEMP 36.1–36.4; O2SAT 89–100
[2024-02-01] MEDS: PIPERACILLN/TAZ 3.375GM/NS50ML 3.375 GM/50 ML BAG IVPB ×4 (03:51→22:09)
[2024-02-01 05:59] LABS: Basophils Percent Auto 0.3 % (0.2-1.2); Eosinophils Percent Auto 1.2 % (0-4.4); Hematocrit 29.6 % (42.0-52.0); Hemoglobin 9.8 g/dL (14.0-18.0); Immature Granulocyte Absolute 0.01 K/mm3 (0.00-0.031); Immature Granulocyte Percent A 0.3 % (0-0.5); Immature Platelet Fraction Pct 2.8 % (0.9-11.2); Lymphocytes Percent Auto 27.3 % (18.3-44.2); Mean Corpuscular HGB Conc 33.1 g/dl (32-36); Mean Corpuscular Hemoglobin 33.2 pg (26-34); Mean Corpuscular Volume 100.3 fl (80-100); Mean Platelet Volume 9.6 fl (7.4-10.4); Monocytes Absolute Auto 0.3 K/mm3 (0.1-0.6); Monocytes Percent Auto 10.3 % (2.6-8.5); Neutrophils Percent Auto 60.6 % (45.5-73.1); Platelet Count Result 125 k/mm3 (150-375); Red Blood Count 2.95 M/mm3 (4.6-6.20); Red Cell Distribution Width 14.2 % (11.5-14.5); White Blood Count 3.3 K/mm3 (4.5-10.0)
[2024-02-01 06:08] LABS: Alanine Aminotransferase 27 U/L (6-50); Albumin Level 3.5 g/dL (3.5-5.1); Alkaline Phosphatase 68 U/L (38-126); Anion Gap 4 mmol/L (4-12); Aspartate Amino Transferase 35 U/L (17-59); Bilirubin,Total 1.3 mg/dL (0.2-1.3); Blood Urea Nitrogen 20 mg/dL (9-20); Calcium 9.2 mg/dL (8.4-10.2); Carbon Dioxide 34 mmol/L (22-30); Chloride 99 mmol/L (98-107); Estimated CRCL calculation 79 ml/min; Estimated Glomerular Filt Rate > 60; Glucose 91 mg/dL (65-110); Magnesium 1.5 mg/dL (1.6-2.3); Potassium 3.6 mmol/L (3.4-5.0); Sodium 137 mmol/L (137-145)
[2024-02-01] MEDS: UMECLIDINIUM/VILANTEROL 62.5-25 MCG ELLIPTA 1 PUFF INHALATION (07:23)
[2024-02-01] MEDS: BUDESONIDE RESPULE NEB 0.5 MG/2 ML AMP INHALATION ×2 (07:23→20:35)
[2024-02-01] MEDS: MAGNESIUM SULF 2 GM/WATER 50ML 2 GM/50 ML BAG IVPB (09:03)
[2024-02-01] MEDS: polyethylene glycoL 3350 17 GM POWD.PACK PO (09:04)
[2024-02-01] MEDS: DULoxetine HCL 60 MG CAPSULE.DR PO (09:04)
[2024-02-01] MEDS: PANTOPRAZOLE 40 MG TABLET PO (09:04)
[2024-02-01] MEDS: METOPROLOL TARTRATE 12.5 MG TABLET PO ×2 (09:04→20:48)
[2024-02-01] MEDS: busPIRone HCL 10 MG TABLET PO ×2 (09:04→20:48)
[2024-02-01] MEDS: ATORVASTATIN 10 MG TABLET PO (09:04)
[2024-02-01] MEDS: THIAMINE HCL 100 MG TABLET FEED TUBE (09:05)
[2024-02-01] MEDS: GABAPENTIN 300 MG CAPSULE 600 MG PO ×3 (09:05→16:28)
[2024-02-01] MEDS: levETIRAcetam 500 MG TABLET PO ×2 (09:05→20:48)
[2024-02-01] MEDS: FOLIC ACID 1 MG TABLET FEED TUBE (09:05)
[2024-02-01] MEDS: TOLNAFTATE 1% POWDER 45 GM BTL 1 APPLIC TOPICAL ×2 (10:05→20:51)
[2024-02-01] MEDS: guaiFENesin/DEXTROMETHORPHAN 10 ML UDC PO (13:04)
[2024-02-01] MEDS: DOCUSATE SODIUM 100 MG CAPSULE PO (13:06)
--- NOTE | 2024-02-01 14:43 | PM.IMPN ---
Progress Note: A&P Assessment and Plan (1) Anxiety: Code(s): F41.9 - Anxiety disorder, unspecified Status: Acute Assessment and Plan: While inpatient the patient has had panic attacks -this could be related to agoraphobia -patient's home gabapentin was restarted -low-dose Xanax scheduled helped to alleviate his symptoms -off Precedex infusion -PT/OT to continue to work with patient -up in chair -discontinue telemetry. It is causing the patient to much anxiety. Xanax changed to p.r.n. (2) Acute and chronic respiratory failure: Code(s): J96.20 - Acute and chronic respiratory failure, unspecified whether with hypoxia or hypercapnia Status: Acute Assessment and Plan: Patient with chronic respiratory failure on 2L O2 chronically. Patient presented with generalized weakness, feeling unwell and SOB. CXR showing scarring but no acute findings. He became obtunded, delirious, tremulous and tachycardic despite Ativan 10mg total. He was intubated and central line placed in ED (01/14) and admitted to ICU. [place] related to COPD exacerbation, alcohol w/d and possibly sepsis. Was able to be extubated 01/18 but required reintubation due to inability to tolerate BiPAP and respiratory distress the next day Patient coughed out his ETT while he was being cleaned up on the evening of 01/21. Staff denied he pulled out the ETT. He was started on supplemental O2 and tolerated being off MV. He made himself a DNR and family supported this decision. CT chest 01/29 showing bibasilar pulmonary opacities. Remains stable on supplemental O2 and at baseline. (3) Acute metabolic encephalopathy: Code(s): G93.41 - Metabolic encephalopathy Status: Acute Assessment and Plan: Acute metabolic encephalopathy could be multifactorial sepsis, alcohol withdrawal, hyponatremia, anemia Ammonia levels within normal limits. TSH 0.31 free T4 1.14. Treated with Precedex but now off. MRI brain with no acute finding EEG with no seizure-like activity Suspect ICU delirium. Added Seroquel with benefit (4) Alcohol withdrawal: Code(s): F10.939 - Alcohol use, unspecified with withdrawal, unspecified Status: Acute Assessment and Plan: History of alcohol use, drinks 12 pack of beer per day (however now on 01/24 reports he drinks 5-6 beers only once per week) Patient was found to be delirious, obtunded, tremulous, tachycardic in the ER requiring multiple doses of Ativan ultimately requiring intubation. Off Precedex Improving and stable On alprazolam p.r.n. (5) Alcohol dependence: Qualifiers: Substance use status: unspecified alcohol-induced disorder Qualified Code(s): F10.29 - Alcohol dependence with unspecified alcohol-induced disorder Code(s): F10.20 - Alcohol dependence, uncomplicated Status: Acute Assessment and Plan: History of alcohol dependence, patient's drinks 12 pack of beer per day -continue folic acid and thiamine -counseling provided to abstain from illicit drug use, alcohol use and tobacco use altogether. Patient and his agree. Resources have been provided. (6) Chronic obstructive pulmonary disease, unspecified: Qualifiers: COPD type: unspecified COPD Qualified Code(s): J44.9 - Chronic obstructive pulmonary disease, unspecified Code(s): J44.9 - Chronic obstructive pulmonary disease, unspecified Status: Chronic Assessment and Plan: History of COPD likely secondary to being a former smoker, patient smoked 3 packs per day for 35 years -continue home Ellipta and bronchodilators -no wheezing noted, no indications for steroids at this time -On nasal cannula -he is chronically on this at home uses nasal cannula intermittently Pulmicort added Solu-Medrol added for 4 doses on January 28. Follow (7) Sepsis: Code(s): A41.9 - Sepsis, unspecified organism Status: Acute Assessment and Plan: Patient
[2024-02-01 20:23] LABS: Glucose Point of Care 114 mg/dl (65-105)
[2024-02-01] MEDS: QUEtiapine FUMARATE 12.5 MG TABLET PO (20:48)
[2024-02-01] MEDS: guaiFENesin 12 HR 600 MG TABCR PO (20:48)
[2024-02-02] VITALS (7 sets, daily range): BP systolic 97–147; BP diastolic 57–71; PULSE 72–87; RESP 16–20; TEMP 36.2–36.9; O2SAT 92–100
[2024-02-02] MEDS: PIPERACILLN/TAZ 3.375GM/NS50ML 3.375 GM/50 ML BAG IVPB (03:54)
[2024-02-02 06:15] LABS: Basophils Percent Auto 0.6 % (0.2-1.2); Eosinophils Absolute Auto 0.1 K/mm3 (0-0.3); Eosinophils Percent Auto 3.6 % (0-4.4); Hematocrit 29.3 % (42.0-52.0); Hemoglobin 9.6 g/dL (14.0-18.0); Immature Granulocyte Absolute 0.01 K/mm3 (0.00-0.031); Immature Granulocyte Percent A 0.3 % (0-0.5); Lymphocytes Absolute Auto 1.14 K/mm3 (0.9-3.2); Lymphocytes Percent Auto 31.5 % (18.3-44.2); Mean Corpuscular HGB Conc 32.8 g/dl (32-36); Mean Corpuscular Hemoglobin 32.3 pg (26-34); Mean Corpuscular Volume 98.7 fl (80-100); Mean Platelet Volume 9.4 fl (7.4-10.4); Monocytes Absolute Auto 0.4 K/mm3 (0.1-0.6); Monocytes Percent Auto 11.6 % (2.6-8.5); Neutrophils Absolute Auto 1.9 K/mm3 (1.3-6.7); Neutrophils Percent Auto 52.4 % (45.5-73.1); Platelet Count Result 121 k/mm3 (150-375); Red Blood Count 2.97 M/mm3 (4.6-6.20); White Blood Count 3.6 K/mm3 (4.5-10.0)
[2024-02-02 06:33] LABS: Albumin Level 3.3 g/dL (3.5-5.1); Anion Gap 4 mmol/L (4-12); Blood Urea Nitrogen 15 mg/dL (9-20); Carbon Dioxide 32 mmol/L (22-30); Chloride 98 mmol/L (98-107); Estimated CRCL calculation 79 ml/min; Estimated Glomerular Filt Rate > 60; Glucose 111 mg/dL (65-110); Magnesium 1.8 mg/dL (1.6-2.3); Phosphorus 2.9 mg/dL (2.5-4.5); Potassium 3.6 mmol/L (3.4-5.0); Sodium 134 mmol/L (137-145)
[2024-02-02 07:15] LABS: Vitamin D 25 Hydroxy 49.9 ng/mL
[2024-02-02] MEDS: UMECLIDINIUM/VILANTEROL 62.5-25 MCG ELLIPTA 1 PUFF INHALATION (07:49)
[2024-02-02] MEDS: BUDESONIDE RESPULE NEB 0.5 MG/2 ML AMP INHALATION (07:49)
[2024-02-02] MEDS: METOPROLOL TARTRATE 12.5 MG TABLET PO ×2 (09:41→20:39)
[2024-02-02] MEDS: GABAPENTIN 300 MG CAPSULE 600 MG PO ×3 (09:41→16:16)
[2024-02-02] MEDS: polyethylene glycoL 3350 17 GM POWD.PACK PO (09:42)
[2024-02-02] MEDS: THIAMINE HCL 100 MG TABLET FEED TUBE (09:42)
[2024-02-02] MEDS: guaiFENesin 12 HR 600 MG TABCR PO ×2 (09:42→20:44)
[2024-02-02] MEDS: levETIRAcetam 500 MG TABLET PO ×2 (09:42→20:39)
[2024-02-02] MEDS: busPIRone HCL 10 MG TABLET PO ×2 (09:42→20:39)
[2024-02-02] MEDS: PANTOPRAZOLE 40 MG TABLET PO (09:42)
[2024-02-02] MEDS: TOLNAFTATE 1% POWDER 45 GM BTL 1 APPLIC TOPICAL ×2 (09:42→20:44)
[2024-02-02] MEDS: DULoxetine HCL 60 MG CAPSULE.DR PO (09:42)
[2024-02-02] MEDS: DOCUSATE SODIUM 100 MG CAPSULE PO ×2 (09:42→20:40)
[2024-02-02] MEDS: FOLIC ACID 1 MG TABLET FEED TUBE (09:42)
[2024-02-02] MEDS: ALPRAZolam (*CRX) 0.5 MG TABLET PO (09:42)
[2024-02-02] MEDS: ATORVASTATIN 10 MG TABLET PO (09:43)
--- NOTE | 2024-02-02 10:12 | WPDNEUROPN ---
Progress Note: A&P Assessment and Plan (1) Alcohol withdrawal seizure: Code(s): F10.939 - Alcohol use, unspecified with withdrawal, unspecified; R56.9 - Unspecified convulsions Status: Acute (2) Acute metabolic encephalopathy: Code(s): G93.41 - Metabolic encephalopathy Status: Acute Plan Mr. Montes is a 68 year old male with a history of chronic alcohol dependence who presented with generalized weakness, fatigue, and shortness of breath. While in the ER had seizure like activity. Could be possible seizure in the setting of alcohol withdrawal. Reasonable to continue Keppra. MRI brain and routine EEG were normal. Recommend no driving until episode free for at least 6 months. Subjective Date/time seen: 02/02/24 10:12 Interval history: Mr. Montes is a 68 year old male with a history of COPD, chronic alcohol use, cirrhosis, DM, neuropathy, tremor, thrombocytopenia, PAD, HLD who presented on 01/14 due to generalized weakness, fatigue, shortness of breath. While in the ER patient became 'obtunded, delirious, tachycardic with HR in the 160s'. He was given Ativan 10mg IV in total and was intubated for respiratory failure. CT head did not show any acute changes. He was started on Keppra 1000mg BID due to concerns for possible seizure. There were reports that he drinks a 12 pack of beer per day. His ethanol level was negative on presentation. His ammonia level was negative. He is receiving thiamine and folic acid supplementation. Patient extubated on 01/19. Course complicated by encephalopathy. MRI brain and routine EEG were normal. He has been continued on Keppra 500mg BID. He has left rotator cuff tear affecting mobility in the LUE. Review of Systems Review of Systems: All systems reviewed & are unremarkable except as noted in HPI and below Exam Const: General: comfortable and no acute distress HENMT: Mouth: Yes moist mucous membranes Resp: Effort & Inspection: normal respiratory effort Skin: General skin exam: normal color Neuro: Other: Awake, alert, gaze is conjugate, face is symmetric, speech is clear. Says he is leaving the hopsital today. Tremulous in the upper extremities. Able to perform elbow flexion well, but unable to perform shoulder abduction -- he does have L rotator cuff tear. Strength is normal in the lower extremities. Extrem: General: normal to inspection Objective Data Vital Signs Vital Signs: Vital Signs - 24 hr 02/01/24 14:00 02/01/24 20:00 02/01/24 20:36 Temperature 36.4 C L Pulse Rate 77 77 81 Respiratory Rate 20 20 20 Blood Pressure 122/48 L Pulse Oximetry 100 100 Oxygen Delivery Nasal Cannula Oxygen Flow Rate 1 Fraction of Inspired Oxygen 28 02/01/24 20:37 02/01/24 21:25 02/01/24 20:46 Temperature 36.1 C L Pulse Rate 62 82 Respiratory Rate 20 20 Blood Pressure 103/70 Pulse Oximetry 94 96 Oxygen Delivery Nasal Cannula Oxygen Flow Rate 2 Fraction of Inspired Oxygen 02/02/24 05:19 02/02/24 07:49 02/02/24 07:49 Temperature 36.9 C Pulse Rate 77 84 Respiratory Rate 20 16 Blood Pressure 106/67 Pulse Oximetry 98 96 Oxygen Delivery Nasal Cannula Oxygen Flow Rate 1 Fraction of Inspired Oxygen 02/02/24 07:56 Temperature Pulse Rate 87 Respiratory Rate 16 Blood Pressure Pulse Oximetry Oxygen Delivery Oxygen Flow Rate Fraction of Inspired Oxygen Intake/Output Intake/Output: Intake & Output 01/30/24 01/31/24 02/01/24 02/02/24 23:59 23:59 23:59 23:59 Intake Total 840 1120 1660 300 Output Total 1100 1000 2100 1550 Balance -260 120 -178 -1250 Meds/Results Medications: Active Medications Generic Name Dose Route Start Last Admin Trade Name Freq PRN Reason Stop Dose Admin Acetaminophen 1,000 mg 01/28/24 04:20 01/29/24 17:00 Acetaminophen 500 Mg Tablet PO 1,000 mg Q6H PRN Administration Mild Pain (1-3) or Fever Albuterol/Ipratropium 3 ml 01/23/24 07:39 01/28/24
--- NOTE | 2024-02-02 13:41 | PCNFU ---
Nutrition Follow-Up Complete: Increased protein energy needs related to mechanical ventilation as evidenced by need for full tube feeding - Resolved New: Inadequate oral intake related to laryngeal dysphagia, loss of appetite as evidenced by speech report Meet estimated protein energy needs - progressing Goal: Pt current nutrition is Minced & moist level 5, moderately thick liquids. Intakes 10-75% since textures downgraded. Ensure Compact BID for additional 220 kcal and 9 g protein each Nutrition recommendation: No new nutrition recommendations. Continue current nutrition care plan and orders. Agree with orders Last recorded weight is 80.6 kg. Bowel Motility: +2 BM 02/01/24 Labs Reviewed: Hgb 9.6, Hct 29.3, Alb 3.3, Na 134, Glu 111 Meds Noted: Zofran, protonix, thiamine, folic acid Skin: No skin issues Additional Notes: Pt was found to have dysphagia and placed on altered textures, thickened liquids. Intakes fair since then. Monitoring labs, vital signs, orders, weights, output, tube feeding tolerance Follow daily in rounds, reassess Tuesdays and Fridays
--- NOTE | 2024-02-02 14:26 | PM.IMPN ---
Progress Note: A&P Assessment and Plan (1) Fall: Code(s): W19.XXXA - Unspecified fall, initial encounter Status: Acute Assessment and Plan: RN heard a crash and found patint sitting on the floor in front of his chair. Hx unreliable. Doubt he had head injury and nothing obvious on exam. Will proceed with some imaging and monitor for evidence of other injuries. Family to help as sitters (2) Anxiety: Code(s): F41.9 - Anxiety disorder, unspecified Status: Acute Assessment and Plan: While inpatient the patient has had panic attacks -this could be related to agoraphobia -patient's home gabapentin was restarted -low-dose Xanax scheduled helped to alleviate his symptoms -weaned off Precedex infusion -PT/OT ordered -up in chair Xanax changed to p.r.n. Will stop given the recent fall (3) Acute and chronic respiratory failure: Code(s): J96.20 - Acute and chronic respiratory failure, unspecified whether with hypoxia or hypercapnia Status: Acute Assessment and Plan: Patient with chronic respiratory failure on 2L O2 chronically. Patient presented with generalized weakness, feeling unwell and SOB. CXR showing scarring but no acute findings. He became obtunded, delirious, tremulous and tachycardic despite Ativan 10mg total. He was intubated and central line placed in ED (01/14) and admitted to ICU. [place] related to COPD exacerbation, alcohol w/d and possibly sepsis. Was able to be extubated 01/18 but required reintubation due to inability to tolerate BiPAP and respiratory distress the next day Patient coughed out his ETT while he was being cleaned up on the evening of 01/21. Staff denied he pulled out the ETT. He was started on supplemental O2 and tolerated being off MV. He made himself a DNR and family supported this decision. CT chest 01/29 showing bibasilar pulmonary opacities. Remains stable on supplemental O2 and at baseline. (4) Acute metabolic encephalopathy: Code(s): G93.41 - Metabolic encephalopathy Status: Acute Assessment and Plan: Acute metabolic encephalopathy could be multifactorial sepsis, alcohol withdrawal, hyponatremia, anemia Ammonia levels within normal limits. TSH 0.31 free T4 1.14. Treated with Precedex but now off. MRI brain with no acute finding EEG with no seizure-like activity Suspect ICU delirium. Added Seroquel with benefit. Plan to discharge on Keppra. (5) Alcohol withdrawal: Code(s): F10.939 - Alcohol use, unspecified with withdrawal, unspecified Status: Acute Assessment and Plan: History of alcohol use, drinks 12 pack of beer per day (however now on 01/24 reports he drinks 5-6 beers only once per week) Patient was found to be delirious, obtunded, tremulous, tachycardic in the ER requiring multiple doses of Ativan ultimately requiring intubation. Off Precedex Improving and stable On alprazolam p.r.n. but will hold (6) Alcohol dependence: Qualifiers: Substance use status: unspecified alcohol-induced disorder Qualified Code(s): F10.29 - Alcohol dependence with unspecified alcohol-induced disorder Code(s): F10.20 - Alcohol dependence, uncomplicated Status: Acute Assessment and Plan: History of alcohol dependence, patient's drinks 12 pack of beer per day -continue folic acid and thiamine -counseling provided to abstain from illicit drug use, alcohol use and tobacco use altogether. Patient and his agree. Resources have been provided. (7) Chronic obstructive pulmonary disease, unspecified: Qualifiers: COPD type: unspecified COPD Qualified Code(s): J44.9 - Chronic obstructive pulmonary disease, unspecified Code(s): J44.9 - Chronic obstructive pulmonary disease, unspecified Status: Chronic Assessment and Plan: History of COPD likely secondary to being a former smoker, patient smoked 3 packs per day for 35 years -continue home Ellipta a
[2024-02-02] MEDS: QUEtiapine FUMARATE 12.5 MG TABLET PO (20:39)
[2024-02-02] MEDS: AMOXICILLIN/CLAVULANATE K 875-125 MG TAB 1 TABLET PO (20:39)
[2024-02-03 05:40] VITALS: BP 125/62; PULSE 84; RESP 18; TEMP 36.4; O2SAT 94
[2024-02-03 06:06] LABS: Basophils Percent Auto 0.4 % (0.2-1.2); Eosinophils Absolute Auto 0.3 K/mm3 (0-0.3); Eosinophils Percent Auto 5.3 % (0-4.4); Hemoglobin 10.5 g/dL (14.0-18.0); Immature Granulocyte Absolute 0.04 K/mm3 (0.00-0.031); Immature Granulocyte Percent A 0.8 % (0-0.5); Lymphocytes Absolute Auto 1.54 K/mm3 (0.9-3.2); Lymphocytes Percent Auto 31.7 % (18.3-44.2); Mean Corpuscular HGB Conc 32.8 g/dl (32-36); Mean Corpuscular Hemoglobin 32.8 pg (26-34); Mean Platelet Volume 9.7 fl (7.4-10.4); Monocytes Absolute Auto 0.5 K/mm3 (0.1-0.6); Monocytes Percent Auto 9.5 % (2.6-8.5); Neutrophils Absolute Auto 2.5 K/mm3 (1.3-6.7); Neutrophils Percent Auto 52.3 % (45.5-73.1); Platelet Count Result 146 k/mm3 (150-375); Red Cell Distribution Width 14.1 % (11.5-14.5); White Blood Count 4.9 K/mm3 (4.5-10.0)
[2024-02-03 06:08] LABS: Alanine Aminotransferase 25 U/L (6-50); Albumin Level 3.7 g/dL (3.5-5.1); Alkaline Phosphatase 71 U/L (38-126); Anion Gap 4 mmol/L (4-12); Aspartate Amino Transferase 36 U/L (17-59); Bilirubin,Total 1.3 mg/dL (0.2-1.3); Blood Urea Nitrogen 11 mg/dL (9-20); Calcium 9.1 mg/dL (8.4-10.2); Carbon Dioxide 32 mmol/L (22-30); Chloride 99 mmol/L (98-107); Estimated CRCL calculation 88 ml/min; Estimated Glomerular Filt Rate > 60; Glucose 102 mg/dL (65-110); Magnesium 1.7 mg/dL (1.6-2.3); Phosphorus 2.8 mg/dL (2.5-4.5); Potassium 3.7 mmol/L (3.4-5.0); Sodium 135 mmol/L (137-145)
[2024-02-03 08:55] VITALS: PULSE 87; O2SAT 94
[2024-02-03] MEDS: THIAMINE HCL 100 MG TABLET FEED TUBE (08:55)
[2024-02-03] MEDS: guaiFENesin 12 HR 600 MG TABCR PO (08:55)
[2024-02-03] MEDS: METOPROLOL TARTRATE 12.5 MG TABLET PO (08:55)
[2024-02-03] MEDS: ACETAMINOPHEN 500 MG TABLET 1000 MG PO (08:55)
[2024-02-03] MEDS: GABAPENTIN 300 MG CAPSULE 600 MG PO ×2 (08:55→12:03)
[2024-02-03] MEDS: busPIRone HCL 10 MG TABLET PO (08:55)
[2024-02-03] MEDS: DOCUSATE SODIUM 100 MG CAPSULE PO (08:55)
[2024-02-03] MEDS: AMOXICILLIN/CLAVULANATE K 875-125 MG TAB 1 TABLET PO (08:56)
[2024-02-03] MEDS: PANTOPRAZOLE 40 MG TABLET PO (08:56)
[2024-02-03] MEDS: ATORVASTATIN 10 MG TABLET PO (08:56)
[2024-02-03] MEDS: polyethylene glycoL 3350 17 GM POWD.PACK PO (08:56)
[2024-02-03] MEDS: FOLIC ACID 1 MG TABLET FEED TUBE (08:56)
[2024-02-03] MEDS: TOLNAFTATE 1% POWDER 45 GM BTL 1 APPLIC TOPICAL (08:56)
[2024-02-03] MEDS: DULoxetine HCL 60 MG CAPSULE.DR PO (08:56)
[2024-02-03] MEDS: levETIRAcetam 500 MG TABLET PO (08:56)
[2024-02-03] MEDS: UMECLIDINIUM/VILANTEROL 62.5-25 MCG ELLIPTA 1 PUFF INHALATION (08:58)
[2024-02-03 08:59] VITALS: O2SAT 94
--- NOTE | 2024-02-03 12:32 | PM.DS ---
DS: Admitting Diagnosis Discharge Date 02/03/24 Admitting Diagnosis Malaise, tremors and abdominal pain DS: Discharge Diagnosis Discharge Diagnosis (1) Fall: Code(s): W19.XXXA - Unspecified fall, initial encounter Status: Acute (2) Anxiety: Code(s): F41.9 - Anxiety disorder, unspecified Status: Acute (3) Acute and chronic respiratory failure: Code(s): J96.20 - Acute and chronic respiratory failure, unspecified whether with hypoxia or hypercapnia Status: Acute (4) Acute metabolic encephalopathy: Code(s): G93.41 - Metabolic encephalopathy Status: Acute (5) Alcohol withdrawal: Code(s): F10.939 - Alcohol use, unspecified with withdrawal, unspecified Status: Acute (6) Alcohol dependence: Qualifiers: Substance use status: unspecified alcohol-induced disorder Qualified Code(s): F10.29 - Alcohol dependence with unspecified alcohol-induced disorder Code(s): F10.20 - Alcohol dependence, uncomplicated Status: Acute (7) Chronic obstructive pulmonary disease, unspecified: Qualifiers: COPD type: unspecified COPD Qualified Code(s): J44.9 - Chronic obstructive pulmonary disease, unspecified Code(s): J44.9 - Chronic obstructive pulmonary disease, unspecified Status: Chronic (8) Sepsis: Code(s): A41.9 - Sepsis, unspecified organism Status: Acute (9) Hematoma of muscle: Code(s): T14.8XXA - Other injury of unspecified body region, initial encounter Status: Acute (10) Anemia: Code(s): D64.9 - Anemia, unspecified Status: Acute (11) Hyponatremia: Code(s): E87.1 - Hypo-osmolality and hyponatremia Status: Acute (12) Atrial fibrillation with RVR: Code(s): I48.91 - Unspecified atrial fibrillation Status: Acute (13) Hyperglycemia: Code(s): R73.9 - Hyperglycemia, unspecified Status: Acute (14) Hypertension: Code(s): I10 - Essential (primary) hypertension Status: Acute (15) Seizure-like activity: Code(s): R56.9 - Unspecified convulsions Status: Acute DS: Summary Hospital Course Reason for hospitalization: 68yo male with DM, alcoholism, COPD on chronic O2 at 2L and PVD here for malaise, tremors and abdominal pain. Please see H&P for details. Hospital Course: Patient presented with sepsis with elevated WBC count, lactic acidosis, tachycardia. Chest x-ray and UA were negative. Patient was found to have a 10.2 cm left inferior rectus intramuscular hematoma by CT but no active extravasation. Patient developed anemia with a hemoglobin dropping to 9 range (presented on 01/14 with Hgb 12.9) felt related to the hematoma. Hgb stable in the 9-[address] abdomen showing stable hematoma size. CRP was 1.4 and procalcitonin level was low. Patient with chronic respiratory failure on 2L O2 chronically. Patient presented with generalized weakness, feeling unwell and SOB. CXR showing scarring but no acute findings. He became obtunded, delirious, tremulous and tachycardic despite Ativan 10mg total. He was intubated and central line placed in ED (01/14) and admitted to ICU. [place] related to COPD exacerbation, alcohol w/d and possibly sepsis. he was able to be extubated 01/18 but required reintubation due to inability to tolerate BiPAP and respiratory distress the next day. Patient coughed out his ETT while he was being cleaned up on the evening of 01/21. He was started on supplemental O2 and tolerated being off mechanical ventilation. He made himself a DNR and family supported this decision. CT chest 01/29 showing bibasilar pulmonary opacities. He remained stable on supplemental O2 and at baseline and actually was weaned to room air at rest. Patient was started on Zosyn on admission but all cultures were negative. Zosyn stopped. He did develop low grade fever and with WBC 11.5K on January 27. CXR 01/28 showing bilateral airspace disease may represent pn
== END 2024-02-03 14:05 | disposition home or self-care (01) | DRG 871 ==
LOC: ANHED 19:23 → ANHICU 23:16 → ANH3MEDSUR 01-26 10:57
PROVIDERS: Emergency Medicine; Internal Medicine; Physician Assistant; Admitting Provider Internal Medicine; Emergency Provider Emergency Medicine; PCP Family Medicine; Visit Provider Internal Medicine
DX: A41.9 Sepsis, unspecified organism (principal); G93.41 Metabolic encephalopathy; J69.0 Pneumonitis due to inhalation of food and vomit; J96.21 Acute and chronic respiratory failure with hypoxia; E87.1 Hypo-osmolality and hyponatremia; F10.239 Alcohol dependence with withdrawal, unspecified; J44.1 Chronic obstructive pulmonary disease with (acute) exacerbation; K70.30 Alcoholic cirrhosis of liver without ascites; E11.42 Type 2 diabetes mellitus with diabetic polyneuropathy; F32.A Depression, unspecified; F41.9 Anxiety disorder, unspecified; I48.91 Unspecified atrial fibrillation; E83.42 Hypomagnesemia; D64.9 Anemia, unspecified; R33.9 Retention of urine, unspecified; S30.1XXA Contusion of abdominal wall, initial encounter; W18.30XA Fall on same level, unspecified, initial encounter; Z87.891 Personal history of nicotine dependence; D69.59 Other secondary thrombocytopenia; M75.122 Complete rotator cuff tear or rupture of left shoulder, not specified as traumatic; R56.9 Unspecified convulsions; Z99.81 Dependence on supplemental oxygen; F43.0 Acute stress reaction; W19.XXXA Unspecified fall, initial encounter
CPT/HCPCS: 31500; 36415; 36556; 36600; 70450; 70553; 71045; 71250; 72125; 73521; 74176; 74177; 80048; 80053; 80069; 80307; 81001; 82140; 82274; 82306; 82375; 82550; 82607; 82746; 82805; 82948; 83036; 83050; 83540; 83550; 83605; 83690; 83735; 83880; 84100; 84145; 84439; 84443; 84478; 84480; 84484; 85014; 85018; 85025; 85055; 85610; 85730; 86140; 87040; 87637; 87641; 92526; 92610; 92611; 93005; 93306; 94002; 94003; 94640; 94660; 95816; 96365; 96375; 96376; 97110; 97116; 97161; 97166; 97530; 97535; 99291; A4565; A9270; A9577; C1751; C9113; J0153; J0282; J1940; J1953; J2060; J2250; J2371; J2543; J2704; J2919; J3010; J3411; J3475; J7030; J7040; J7050; J7060; P9045; P9047; Q9967

== ENCOUNTER 2024-05-29 11:00 | Outpatient (RCR) | payer MEDICARE, SELFPAY ==
--- NOTE | 2024-03-02 10:52 | OPREHPOC ---
Outpatient Therapy Plan of Care This is a Multidisciplinary Plan of Care that may contain components documented by all disciplines (PT, OT, and ST.) PT Problem 1 PT Problem #1 Knowledge Deficit PT Goal 1 Goal 1. Patient will perform independent HEP Target Visit 3 PT Problem 2 PT Problem #2 Impaired Range of Motion PT Goal 1 Goal 1. passive shoulder flexion 160 2. active shoulder flexion at least 145 degrees for reaching tasks Target Visit 10 PT Problem 3 PT Problem #3 Pain PT Goal 1 Goal 1. Pain with ADL's 2/10 highest Target Visit 10 PT Problem 4 PT Problem #4 Impaired Strength PT Goal 1 Goal 1. Left shoulder 4+/5 in all planes for return to work Target Visit 10
--- NOTE | 2024-03-02 10:53 | PTOPEVAL1 ---
Assessment and note entered by Lolis Ignacio DPT Evaluation Information Assessment Status Evaluation Diagnosis z47.89 ICD-10 Condition Codes (PT) M25.512,Weakness R53.1 Subjective Information Pt is s/p L RCR 12/08/23. States he was hospitalized for awhile (4 weeks) due to seizures, which were new. Saw PT while in the hospital but not addressing the shoulder. Shoulder sling for 6 weeks, has now been out of it for 4-6 weeks. Highest shoulder pain recently 9/10 and lowest 0/ 10. Pt is R hand dominant. States he has very limited motion in his left shoulder, cannot lift into a cabinet, can dress but has to modify. Mild difficulty sleeping due to pain. Is able to drive but is also modifying. 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 Prior level: previously had been able to use left arm for ADL's and work tasks with less pain. Patient goal: normal function, get it moving better before getting R shoulder done Returns to [place] next week. Reported Pain Level Pain Score 1: Self Report Assessment PT Clinical Summary The patient is presenting to skilled therapy s/p L RCR on 12/08/23, also hospitalized approximately 1 month due to other medical issues. He presents with greatly decreased active and passive range of motion which are contributing to his pain and difficulty performing normal activities like dressing, reaching into a cabinet, and returning to work. He will benefit from therapy to address his range of motion and strength in order to reduce pain and improve function. QuickDASH: 77.3% disability Plan of Care Interventions Electrical Stimulation,Hot Pack/Cold Pack,Manual Therapy,Neuro Re-education,Therapeutic Activities, Therapeutic Exercise,Self-Care/Home Management PT Services Indicated Yes Treatment Frequency and 2 times a week for 10 visits Duration These treatments will address the objective and functional deficits as defined above. The patient will be advanced safely and appropriately in order for the patient to progress towards his/her prior level of function. Additional exercises will be introduced and as well as a comprehensive home exercise program upon discharge, if needed, ?to ensure carryover of functional gains achieved in the clinic. This treatment plan has been reviewed and agreement upon by the patient.
--- NOTE | 2024-04-03 11:10 | PTOPPROG ---
Assessment and note entered by Gavin Mendieta, PT, DPT Evaluation Information Assessment Status Progress Diagnosis z47.89 ICD-10 Condition Codes (PT) M25.512,Weakness R53.1 Subjective Information Pt reports no pain at rest this date, but still to an 7/10 when he tries to reach his hand out. He states he is not very compliant with his HEP, 1-2 days a week. He states he still has trouble reaching up and holding things away from his body. Pt states he is 50% to where he wants to be. Assessment PT Clinical Summary Francis presents to therapy today for his progress report following 10 visits of skilled therapy to treat his L RTC repair. He continues to demonstrate significant ROM limitations, active abduction and flexion are both limited to 40 deg. His passive ROM and pain reports have improved. He demonstrates poor strength against gravity. Continuation of skilled therapy services are indicated to progress towards therapy goals, further manage pain, and to return to PLOF. Plan of Care Interventions Electrical Stimulation,Hot Pack/Cold Pack,Manual Therapy,Neuro Re-education,Therapeutic Activities, Therapeutic Exercise,Self-Care/Home Management PT Services Indicated Yes Treatment Frequency and 2 times a week for 6 visits Duration These treatments will address the objective and functional deficits as defined above. The patient will be advanced safely and appropriately in order for the patient to progress towards his/her prior level of function. Additional exercises will be introduced and as well as a comprehensive home exercise program upon discharge, if needed, ?to ensure carryover of functional gains achieved in the clinic. This treatment plan has been reviewed and agreement upon by the patient.
--- NOTE | 2024-04-16 11:47 | PCPTNOTE ---
Patient did not show up for scheduled appointment this date.
--- NOTE | 2024-04-18 10:06 | PCPTNOTE ---
Patient was canceled 04/16/24 due to therapist out of clinic.
--- NOTE | 2024-04-24 10:46 | PCPTNOTE ---
Patient no showed to appontment this date. Patient called and states they had the schedule wrong.
--- NOTE | 2024-05-09 10:29 | OPREHPOC ---
Outpatient Therapy Plan of Care This is a Multidisciplinary Plan of Care that may contain components documented by all disciplines (PT, OT, and ST.) PT Problem 1 PT Problem #1 Knowledge Deficit PT Goal 1 Goal / Goal Update 1. Patient will perform independent HEP Target Visit 3 Progress Met PT Problem 2 PT Problem #2 Impaired Range of Motion PT Goal 1 Goal / Goal Update 1. passive shoulder flexion 160 2. active shoulder flexion at least 145 degrees for reaching tasks update 05/09/24 1. 144 2. 55 Target Visit 24 Progress Partially Met PT Problem 3 PT Problem #3 Pain PT Goal 1 Goal / Goal Update 1. Pain with ADL's 2/10 highest update 05/09/24 1. up to 05/08 with certain reaching tasks Target Visit 24 PT Problem 4 PT Problem #4 Impaired Strength PT Goal 1 Goal / Goal Update 1. Left shoulder 4+/5 in all planes for return to work update 05/09/24 1. unable to assess due to continued lack of motion Target Visit 24 Progress Not Met
--- NOTE | 2024-05-09 10:29 | PTOPPROG ---
Assessment and note entered by Lolis Ignacio DPT Evaluation Information Assessment Status Progress Diagnosis z47.89 ICD-10 Condition Codes (PT) M25.512,Weakness R53.1 Subjective Information Highest pain recently 9/10 while trying to reach or pick something up. Lowest pain 0/10 at rest. Unable to wash his back at all.Able to dress independently barely , has trouble with long sleeve shirts and jackets. Feels 70% better than when he started therapy (immediately after surgery states his had to help with everything including dressing). Returns to June 08. Assessment PT Clinical Summary The patient has continued to make improvements in therapy. While still very limited in all planes, he demonstrates improved left shoulder active motion in all planes. He also demonstrates improved left passive flexion to 144. He reports continued improvements with ability to do activities such as dressing independently. He does continue to have high pain levels with certain reaching and carrying tasks. He will benefit from further therapy to address range of motion/ strength in order to further improve function and reduce pain. Plan of Care Interventions Electrical Stimulation,Hot Pack/Cold Pack,Manual Therapy,Neuro Re-education,Patient/Caregiver Education,Therapeutic Activities,Therapeutic Exercise PT Services Indicated Yes Treatment Frequency and 1-2 times a week for 4-8 visits Duration These treatments will address the objective and functional deficits as defined above. The patient will be advanced safely and appropriately in order for the patient to progress towards his/her prior level of function. Additional exercises will be introduced and as well as a comprehensive home exercise program upon discharge, if needed, ?to ensure carryover of functional gains achieved in the clinic. This treatment plan has been reviewed and agreement upon by the patient.
== END 2024-05-31 09:36 | disposition still patient (30) ==
LOC: ANHGOSHPT 11:00
PROVIDERS: PCP Family Medicine; Visit Provider Orthopaedic Surgery
DX: Z48.89 Encounter for other specified surgical aftercare (principal)
CPT/HCPCS: 97014; 97110; 97112; 97161; 97530; G0283

== ENCOUNTER 2024-06-20 11:15 | Outpatient (RCR) | payer MEDICARE, SELFPAY ==
--- NOTE | 2024-06-07 11:33 | PCPTNOTE ---
Patient did not show up for scheduled appointment this date.
--- NOTE | 2024-06-20 11:42 | OPREHPOC ---
Outpatient Therapy Plan of Care This is a Multidisciplinary Plan of Care that may contain components documented by all disciplines (PT, OT, and ST.) PT Problem 1 PT Problem #1 Knowledge Deficit PT Goal 1 Goal / Goal Update 1. Patient will perform independent HEP Target Visit 3 Progress Met PT Problem 2 PT Problem #2 Impaired Range of Motion PT Goal 1 Goal / Goal Update 1. passive shoulder flexion 160 2. active shoulder flexion at least 145 degrees for reaching tasks update 05/09/24 1. 144 2. 55 update 06/20/24 1. 144 2. 60 Target Visit 24 Progress Partially Met PT Problem 3 PT Problem #3 Pain PT Goal 1 Goal / Goal Update 1. Pain with ADL's 2/10 highest update 05/09/24 1. up to 10 with certain reaching tasks update 06/20/24 1. 4/10 Target Visit 24 Progress Partially Met PT Problem 4 PT Problem #4 Impaired Strength PT Goal 1 Goal / Goal Update 1. Left shoulder 4+/5 in all planes for return to work update 05/09/24 1. unable to assess due to continued lack of motion Target Visit 24 Progress Partially Met
--- NOTE | 2024-06-20 11:42 | PTOPDC ---
Assessment and note entered by Lolis Ignacio DPT Evaluation Information Assessment Status Discharge Diagnosis z47.89 ICD-10 Condition Codes (PT) Weakness R53.1,M25.512 Subjective Information Pain highest in last week 4/10 and lowest 0/10. Pain continues to be with moving certain directions. Feels therapy has continued to help but is unsure if he needs to do more as he has his HEP and recently got pulleys for home use as well . Feels 80% better since starting therapy. Can reach his back now to some extent and less difficulty with long shirts or jackets. Reported Pain Level Pain Score 0: Self Report Assessment PT Clinical Summary The patient has continued to make some progress in therapy. He reports significant decreases to pain over the last month and demonstrates some range of motion improvements although he continues to lack active range of motion in all planes. He reports some improvements with dressing. The patient would like to self discharge at this time despite education about continued benefits from therapy. He has been educated to continue with HEP and pulleys independently and to follow up with MD as needed. Plan of Care PT Services Indicated No
== END 2024-06-20 13:04 | disposition home or self-care (01) ==
LOC: ANHGOSHPT 11:15
PROVIDERS: PCP Family Medicine; Visit Provider Orthopaedic Surgery
DX: Z47.89 Encounter for other orthopedic aftercare (principal)
CPT/HCPCS: 97014; 97110; 97112; 97530; G0283

== ENCOUNTER 2024-08-03 10:59 | Emergency (ER) | payer MEDICARE, SELFPAY ==
--- NOTE | ~2024-08-03 | XR_ITS ---
EXAMINATION: XR chest 2V 08/03/2024 11:29 INDICATION: Cough and shortness of breath PROCEDURE: 2 view chest COMPARISON: Comparison to multiple prior studies sequentially, with oldest reviewed study dated 01/21. FINDINGS: The lungs are clear. The lungs are hyperinflated which is consistent with, but not diagnost ic of chronic obstructive pulmonary disease. The cardiomediastinal silhouette is within normal limits . There are no pleural effusions. There is no pneumothorax suspected. IMPRESSION: 1: NO ACUTE CARDIOPULMONARY DISEASE. Reviewed, dictated and finalized at location B. [employer]PER[employer]
--- NOTE | 2024-08-03 11:12 | ED_ITS ---
HPI - URI/Sore Throat General Chief Complaint: Upper Respiratory Infection Stated Complaint: Congestion Time Seen by Provider: 08/03/24 11:17 Source: patient Mode of arrival: ambulatory Limitations: no limitations History of Present Illness HPI Narrative: Francis is a 69-year-old female patient presenting to the clinic today with complaints of cough, shortness breath, nasal drainage, and sinus congestion. He reports symptoms been going on for over 1 week. Had appointment to see his primary care doctor today however his primary care doctor was not in office. They decided to come down here for evaluation. Patient has history of COPD. He is still currently smoking. States he is very easily winded when getting up and walking. Cough is productive bringing up some white phlegm. He denies any fevers, chills, or body aches. MD elicited complaint: cough, nasal congestion and other (Shortness of breath) Related Data Home Medications Medication Instructions Recorded Confirmed multivitamin 1 tablet PO DAILY 03/25/21 08/03/24 Allergies Allergy/AdvReac Type Severity Reaction Status Date / Time No Known Allergies Allergy Verified 08/03/24 11:17 Review of Systems Review of Systems: Pertinent positives per HPI. Patient denies any fever, chills, rash, headache, visual changes, dizziness, chest pain, palpitations, nausea, vomiting, diarrhea, constipation, abdominal pain, or any urinary issues. [facility] Past Medical History Medical History Acute on chronic anemia Alcohol dependence Alcohol withdrawal seizure Alcoholic cirrhosis Chronic obstructive pulmonary disease, unspecified Chronic respiratory failure with hypoxia, on home oxygen therapy Cirrhosis of liver COPD (chronic obstructive pulmonary disease) Depression with anxiety Diabetes mellitus Diabetes mellitus type 2 in obese Gout Hepatitis A Injury of left shoulder Nicotine dependence Occult blood in stools Onychomycosis Peripheral neuropathy Peripheral neuropathy Peripheral vascular disease Portal venous hypertension Pure hypercholesterolemia Rotator cuff dysfunction Shoulder injury Stasis dermatitis of both legs Thrombocytopenia Type 2 diabetes mellitus without complication, without long-term current use of insulin Diagnosed in 2018 last hemoglobin A1c 5.07 October 2021 Xerosis cutis Surgical History Surgical History History of colonoscopy with polypectomy (03/2018) History of cystoscopy S/P TURP (status post transurethral resection of prostate) Family History Family History Mother Carcinoma of colon, Onset Age: 77 Father Diabetes mellitus Sibling Diabetes mellitus Social History Social History Social History: Code status: Full code Surrogate decision maker: Smoking packs per day: 3 Smoking cigarettes per day: 60.0 Years smoked: 35 Smoking pack-years: 105.00 Smoking status: Former smoker Second hand tobacco smoke exposure: No Additional smoking assessment comments: patient stated he smoked on and off for most of his life. Alcohol intake: current Drinks per week: 12 Alcohol use details: The patient drinks up to a 12 pack of beer per day. Substance use: never Substance use type: does not use Do You Feel Safe in your Home?: Yes Lack of Transportation: No Lack of Food: Never True Current Housing: I Have Housing Concerned About Future Housing: No Difficulty Paying Gas/Electric Bills: No Difficulty Paying for Meds: No Currently Unemployed: No Education: High School Diploma/GED Difficulty w/ Childcare or Family Care: No Living arrangements: with family Additional living arrangements comments: He lives with his of 33 years. They raised 3 children. 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 Gender identity (if verbalized by the patient): Male Sexual Orientation (if Verbalized by the Patient): Straight or Heterosexual Spiritual care concerns: No Comments At the time of my signature, I reviewed and agree with the nursing past medical, surgical, social, and family history. There is no relevant family history pertinent to the patient complaint. Exam Narrative: General: Well-developed, well nourished, in no apparent distress Head: Normocephalic, atraumatic Eyes: Pupils equally round and reactive to light bilaterally, EOM intact, sclera and conjunctive clear, no discharge, lids normal Ears: TMs intact and clear, ear canals clear, no drainage, grossly hearing normal. Nose: Nares patent, clear nasal discharge, no inflammation, no sinus tenderness. Mouth: Oral pharynx without lesions or masses, good dentition, MMM. Postnasal drip Neck: Supple, trachea midline, no enlargement of anterior or posterior cervical nodes, no thyroid masses or goiter palpable. Cardio: Regular rate and rhythm, s1 and s2 normal, no murmur appreciated. Resp: Lung sounds coarse and congested with inspiratory wheezing, no rhonchi, rales, or rubs Course Course Emergency Course: Portions of this record may have been created with voice recognition software. Level of Care: Express Care Visit Vital Signs Vital signs: Vital Signs Temperature 35.8 C L 08/03/24 11:17 Pulse Rate 102 H 08/03/24 11:17 Respiratory Rate 16 08/03/24 11:17 Blood Pressure 92/71 L 08/03/24 11:17 Pulse Oximetry 97 08/03/24 11:17 Temperature 35.8 C L 08/03/24 11:17 Pulse Rate 102 H 08/03/24 11:17 Respiratory Rate 16 08/03/24 11:17 Blood Pressure 92/71 L 08/03/24 11:17 Pulse Oximetry 97 08/03/24 11:17 Vital signs reviewed MDM - URI/Sore Throat MDM Narrative Medical decision making narrative: At the time of visit patient is resting comfortably on the exam table. Patient appears to be nontoxic. Diagnostics: Chest x-ray was performed and shows no acute cardiopulmonary process. Plan: I suspect patient has COPD exacerbation. Prescription for prednisone, azithromycin, and albuterol inhaler was sent to pharmacy. Supportive measures were discussed with the patient and they voiced understanding discharge instructions and agrees to treatment plan. Return precautions reviewed Differential Diagnosis Differential diagnosis: Likely upper respiratory infection, otitis media, sinusitis, viral infection, bronchitis, influenza, pharyngitis and other (COVID) Imaging Data Radiologist's impression: ITS Impressions Chest X-Ray 08/03/24 11:32 IMPRESSION: 1: NO ACUTE CARDIOPULMONARY DISEASE. Discharge Plan Discharge Clinical Impression: Acute exacerbation of chronic obstructive pulmonary disease (COPD) Patient Disposition: Home, Self-Care Condition: Stable Instructions: Antibiotic Form, COPD (Chronic Obstructive Pulmonary Disease) (ED) Additional Instructions: Chest x-ray is negative for any acute cardiopulmonary process. DuoNeb breathing treatment was given in the clinic today Take prescription medications only as prescribed-albuterol inhaler, prednisone, DuoNeb treatment solution, and azithromycin Increase fluids and stay well hydrated Tylenol/motrin for pain/fever Flonase and OTC antihistamines as directed Vicks vapor rub to open sinuses Sinus rinses for congestion Cepacol spray, cough drops, throat lozenges, warm tea with honey/lemon, gargle salt water to soothe throat BRAT diet for diarrhea Clear liquids x 24 hours then advance as tolerated for nausea/vomiting Go to the ED if you develop a worsening in your condition- high fever not controlled by Tylenol or Motrin, dehydration, weakness, lethargy, shortness of breath, or chest pain. Follow up with your PCP in 3-5 days if symptoms persist. Prescriptions: New azithromycin 250 mg tablet See Rx Instructions .ROUTE .COMPLEX Qty: 6 0RF Rx Instructions: For 250 mg dose pack: take 500 mg today (day 1), then 250 mg for 4 days (days 2-5) prednisone 20 mg tablet 40 mg PO DAILY 5 Days Qty: 10 0RF albuterol sulfate 90 mcg/actuation HFA aerosol inhaler 2 puff inhalation Q4-6H PRN (Reason: shortness of breath or wheezing) 30 Days Qty: 8.5 0RF ipratropium-albuterol 0.5 mg-3 mg(2.5 mg base)/3 mL solution for nebulization 3 ml inhalation Q6H PRN (Reason: shortness of breath or wheezing) 30 Days Qty: 180 0RF No Action multivitamin Tablet 1 tablet PO DAILY polyethylene glycol 3350 [Miralax] 17 gram Powder In Packet 17 g PO QAM Qty: 30 0RF allopurinol 300 mg tablet 300 mg PO DAILY Qty: 90 1RF levetiracetam [Keppra] 500 mg tablet 500 mg PO Q12HR Qty: 180 1RF metoprolol tartrate 25 mg tablet 12.5 mg PO BID Qty: 15 5RF gabapentin 600 mg tablet 600 mg PO TID Qty: 270 0RF buspirone 10 mg tablet 10 mg PO Q12HR Qty: 180 1RF atorvastatin 10 mg tablet 10 mg PO DAILY Qty: 90 1RF duloxetine 60 mg capsule,delayed release(DR/EC) 60 mg PO DAILY Qty: 90 1RF Anoro Ellipta 62.5-25 mcg/actuation blister with device 1 inh inhalation DAILY Qty: 60 0RF Rx Instructions: LAST REFILL UNTIL SEEN calcium carbonate [Oyster Shell Calcium 500] 500 mg calcium (1,250 mg) Tablet 500 mg PO DAILY Qty: 30 0RF aspirin [Children's Aspirin] 81 mg Tablet,Chewable 81 mg PO DAILY@0800 Qty: 30 0RF folic acid 1 mg Tablet 1 mg PO DAILY Qty: 30 0RF albuterol sulfate [Proventil HFA] 90 mcg/actuation Hfa Aerosol Inhaler 2 puff inhalation Q4HRT PRN (Reason: shortness of breath or wheezing) Qty: 1 0RF cholecalciferol (vitamin D3) [Vitamin D3] 25 mcg (1,000 unit) Tablet 1,000 unit PO DAILY Qty: 30 0RF ipratropium-albuterol 0.5 mg-3 mg(2.5 mg base)/3 mL Solution For Nebulization 3 ml inhalation Q6HRT PRN (Reason: shortness of breath or wheezing) Qty: 100 0RF nystatin 100,000 unit/gram Powder 1 applic topical Q12HR Qty: 100 0RF Follow-up/Referrals: Romulo Dempsey DO [Primary Care Provider] - Time of Disposition: 11:46 Quality NIHSS Nursing Documentation ED NIHSS nursing documentation: reviewed/agree
[2024-08-03 11:17] VITALS: BP 92/71; PULSE 102; RESP 16; TEMP 35.8; O2SAT 97
[2024-08-03] MEDS: IPRATROPIUM 0.5 MG/ALBUTEROL SULFATE 2.5 MG AMPUL.NEB 3 ML INHALATION (11:39)
== END 2024-08-03 12:05 | disposition home or self-care (01) ==
PROVIDERS: Emergency Provider Nurse Practitioner Family; PCP Family Medicine
DX: J44.1 Chronic obstructive pulmonary disease with (acute) exacerbation (principal); Z87.891 Personal history of nicotine dependence; K74.60 Unspecified cirrhosis of liver; E11.42 Type 2 diabetes mellitus with diabetic polyneuropathy; E11.51 Type 2 diabetes mellitus with diabetic peripheral angiopathy without gangrene; E78.00 Pure hypercholesterolemia, unspecified; M10.9 Gout, unspecified
CPT/HCPCS: 71046; 94640; 99213; G0463

== ENCOUNTER 2024-12-13 15:30 | Outpatient (CLI) | payer MEDICARE, SELFPAY ==
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
--- OUTSIDE RECORDS SUMMARY | 2024-12-13 15:33 | XMS_ITS | Clinical Summary ---
Author Organization [facility] [address] Address [address] [place] [address] Care Team Providers Care Coyote Hunter Name Role Phone Romulo Dempsey Primary Care Provider [phone] Allergies No known active allergies Medications atorvastatin (LIPITOR) 10 mg tablet Rx: Atorvastatin Calcium Active gabapentin 10 % cream, metered-dose applicator Active FUROSEMIDE ORAL Take by mouth Active albuterol HFA (PROVENTIL HFA,VENTOLIN HFA,PROAIR HFA) 90 mcg/actuation inhaler INHALE 2 PUFFS EVERY 4 HOURS NEEDED FOR SHORTNESS OF BREATH 0 Active allopurinoL (ZYLOPRIM) 300 mg tablet Take 1 tablet (300 mg total) by mouth daily Active multivitamin tablet Take 1 tablet by mouth daily Active folic acid (FOLVITE) 1 mg tablet Take 1 tablet (1 mg total) by mouth daily Active thiamine (VITAMIN B1) 100 mg tablet Take 1 tablet (100 mg total) by mouth daily Active gabapentin (NEURONTIN) 300 mg capsule Take 2 capsules (600 mg total) by mouth 3 (three) times a day Active busPIRone (BUSPAR) 10 mg tabletIndicatio ns:Generalized Anxiety Disorder Take 1 tablet (10 mg total) by mouth 2 (two) times a day Active umeclidinium-vi lanteroL (ANORO ELLIPTA) 62.5-25 mcg/actuation blister with device Inhale Active DULoxetine DR (CYMBALTA) 60 mg capsule Take 1 capsule (60 mg total) by mouth daily Active cholecalciferol 25 mcg (1,000 unit) tablet Take 1 tablet (1,000 Units total) by mouth daily Active Active Problems Problem Noted Date Diagnosed Date Premature atrial contraction 07/11/2023 COE (dyspnea on exertion) 04/18/2023 Postural dizziness with presyncope 04/18/2023 Alcoholism 04/18/2023 Tobacco abuse 04/18/2023 Lung mass 08/15/2012 Surgical History Surgery Date Site/Laterality Comments KNEE SURGERY Knee Surgery - (Added by TW Conv) CYSTOSCOPY Therapeutic Cystoscopy - (Added by TW Conv) TRANSURETHRAL RESECTION OF PROSTATE Medical History Medical History Date Comments Chronic obstructive pulmonar y disease (HCC) Chronic obstructive pulmonar y disease - (Added by TW Conv) Personal history of other me ntal and behavioral disorders History of depression - (Add ed by TW Conv) Personal history of other en docrine, nutritional and metabolic disease History of hyperlipi demia - (Added by TW Conv) Personal history of other di seases of male genital organs History of benign prostatic hypertrophy - (Added by TW Conv) Closed fracture of one rib Close d rib fracture - (Added by TW Conv) Tremor Tremor - (Added by TW Conv) Personal history of other sp ecified conditions History of dizziness - (Adde d by TW Conv) Dyspnea Diabetes mellitus (HCC) Gout Hepatitis A Alcoholic cirrhosis (HCC) Depression Hyperlipidemia Family History Medical History Relation Name Comments Stroke Brother 1 Stroke Syndrome - (Added by TW Conv) Diabetes Brother 2 Diabetes Mellit us - (Added by TW Conv) Cancer Father Cancer - (Added by TW Conv) Diabetes Father Cancer Mother Cancer - (Added by TW Conv) Asthma Sister Asthma - (Added by TW Conv) Diabetes Son 1 Diabetes Mellit us - (Added by TW Conv) Hypertension Son 2 Hypertension - (Added by TW Conv) Relation Name Status Comments Brother 1 Brother 2 Father Mother Sister Son 1 Son 2 Social History Tobacco Use Types Packs/Day Years Used Date Smoking Tobacco: Every Day Cigarettes Tobacco Cessation:Ready to Q uit: Not Asked; Counseling Given: Not Answered Sex and Gender Information Value Date Recorded Sex Assigned at Not on file Legal Sex Male 4:38 AM ALLOPATHIC DOCTOR Gender Identity Not on file Sexual Orientation Not on file Obstetrics History Last Filed Vital Signs Vital Sign Reading Time Taken Comments Blood Pressure 132/66 04/23/2024 10:16 AM CDT Pulse 80 04/23/2024 10:16 AM CDT Temperature 36.9 C (98.5 F) 05/14/2022 5:57 PM CDT Respiratory Rate 16 05/14/2022 5:57 PM CDT Oxygen Saturation 93% 07/11/2023 9:30 AM ALLOPATHIC DOCTOR Inhaled Oxygen Concentration - - Weight 79.2 kg (174 lb 9.6 oz) 04/23/2024 10:16 AM CDT Height 185.4 cm (6' 1 ) 04/23/2024 10:16 AM CDT Body Mass Index 23.04 04/23/2024 10:16 AM CDT Plan of Treatment Health Maintenance Due Date Last Done Comments Colon Cancer Screening-Colonoscopy 1956 Depression Screening 1956 Fall Risk Assessment 1956 Hepatitis C Screening 1956 Prostate Cancer Screening-PSA 1956 Hepatitis B Screening 1974 Pneumococcal vaccine 65+ (2 of 2 - PCV) 03/02/2017 03/02/2016 DTaP/Tdap/Td Vaccine (1 - Tdap) 10/22/2020 Well Visit 65+ 2021 Covid-19 Vaccine (4 - season) 2024 08/10/2021, 11/20/2020, 10/30/2020 Influenza Vaccine (#1) 2024 , 06/04/2019, 06/13/2018 Zoster Vaccine Completed 08/27/2021, 05/29, 03/02/2016 Abdominal Aortic Aneurysm (A AA) Screen Completed 07/16/2022 Insurance AETNA MEDICARE GOLD Care Teams Coyote Hunter Relationship Specialty Start Date End Date Romulo Dempsey DO PCP - General Family Medicine 02/14/23
--- OUTSIDE RECORDS SUMMARY | 2024-12-13 15:33 | XMS_ITS | Clinical Summary ---
Author Organization [facility] Address [address] [place] [address] Care Team Providers Care Clinical Medical Transcriptionist Name Role Phone Erasmo Teran MD Primary Care Provider [phone] Allergies No known active allergies Medications gabapentin (NEURONTIN) 600 mg tablet Take 600 mg by mouth 2 times daily. Active atorvastatin (LIPITOR) 10 mg tablet Take 10 mg by mouth daily with supper. Active busPIRone (BUSPAR) 7.5 mg Tablet Take 7.5 mg by mouth 2 times daily. Active FUROSEMIDE ORAL Take by mouth. Active allopurinoL (ZYLOPRIM) 300 mg tablet Take 300 mg by mouth daily. Active ibuprofen (MOTRIN) 800 mg tablet Take 800 mg by mouth every 6 hours as needed for Pain, Mild. Active multivitamin (DAILY-RAGHU) tablet Take 1 Tablet by mouth daily. Active metformin HCl (METFORMIN ORAL) Take by mouth. Activ e DULoxetine (CYMBALTA) 60 mg Capsule, Delayed Release(E.C.) Take 60 mg by mouth daily. 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 Family History Medical History Relation Name Comments Diabetes Brother 1 Stroke Brother 1 Diabetes Brother 2 Cancer Father Diabetes Father Cancer Mother Diabetes Mother Relation Name Status Comments Brother 1 Brother 2 Father Mother Sister Alive Social History Tobacco Use Types Packs/Day Years Used Date Smoking Tobacco: Every Day Cigarettes Smokeless Tobacco: Never Alcohol Use Standard Drinks/Week Comments Never 0 (1 standard drink = 0.6 oz pur e alcohol) Sex and Gender Information Value Date Recorded Sex Assigned at Not on file Legal Sex Male 3:41 PM CDT Gender Identity Not on file Sexual Orientation Not on file Last Filed Vital Signs Vital Sign Reading Time Taken Comments Blood Pressure 132/88 05/06/2020 11:16 AM CDT Pulse 92 05/06/2020 11:16 AM CDT Temperature 36.8 C (98.2 F) 05/06/2020 11:16 AM CDT Respiratory Rate - - Oxygen Saturation 94% 05/06/2020 11: 16 AM CDT Inhaled Oxygen Concentration - - Weight 93.8 kg (206 lb 12.8 oz) 020 11:16 AM CDT Height 188 cm (6' 2 ) 05/06/2020 11:16 AM CDT Body Mass Index 26.55 05/06/2020 11:16 AM CDT Plan of Treatment Health Maintenance Due Date Last Done Comments DTAP/TDAP/TD VACCINES (1 - Tdap) 1975 PNEUMOCOCCAL VACCINE 50+ YEARS (1 of 2 - PCV) 05/23/19 75 COLORECTAL SCREENING 2001 Colorectal Cancer Screening 2001 FIT-DNA Q 3 years 2001 FIT/FOBT Q 1 year 2001 Flex Sig/CT Colonography Q 5 years 2001 ZOSTER VACCINE (1 of 2) 2006 INFLUENZA VACCINE (#1) 2024 RSV VACCINE (60+ or ) (1 - 1-dose 75+ series) 2031 Insurance Care Teams Clinical Medical Transcriptionist Relationship Specialty Start Date End Date Erasmo Teran MD [address] [place] [address] PCP - General Family Practice 03/07/19
--- OUTSIDE RECORDS SUMMARY | 2024-12-13 15:33 | XMS_ITS | Referral Summary ---
Author Organization [facility] [place] [address] Address [address] [place] [address] Care Team Providers Care Blaster Helper Name Role Phone Romulo Dempsey Primary Care Provider [phone] Allergies No known active allergies Medications atorvastatin [...] 04/18/2023 Tobacco abuse 04/18/2023 Lung mass 08/15/2012 Social History Tobacco Use Types Packs/Day Years Used Date Smoking Tobacco: Every Day Cigarettes Tobacco Cessation:Ready to Q uit: Not Asked; Counseling Given: Not Answered Sex and Gender Information Value Date Recorded Sex Assigned at Not on file Legal Sex Male 4:38 AM MATERIAL SPECIALIST Gender Identity Not on file Sexual Orientation Not on file Last Filed Vital Signs Vital Sign Reading Time Taken Comments Blood Pressure 132/66 04/23/2024 10:16 AM CDT Pulse 80 04/23/2024 10:16 AM CDT Temperature 36.9 C (98.5 F) 05/14/2022 5:57 PM CDT Respiratory Rate 16 05/14/2022 5:57 PM CDT Oxygen Saturation 93% 07/11/2023 9:30 AM MATERIAL SPECIALIST Inhaled Oxygen Concentration - - Weight 79.2 kg (174 lb 9.6 oz) 04/23/2024 10:16 AM CDT Height 185.4 cm (6' 1 ) 04/23/2024 10:16 AM CDT Body Mass Index 23.04 04/23/2024 10:16 AM CDT Plan of Treatment Not on file Insurance AETNA MEDICARE GOLD Care Teams Blaster Helper Relationship Specialty Start Date End Date Romulo Dempsey DO PCP - General Family Medicine 02/14/23
[2024-12-13 19:48] LABS: Anion Gap 3 mmol/L (4-12); Blood Urea Nitrogen 6 mg/dL (9-20); Carbon Dioxide 35 mmol/L (22-30); Chloride 89 mmol/L (98-107); Estimated Glomerular Filt Rate > 60; Glucose 113 mg/dL (65-110); Potassium 4.2 mmol/L (3.4-5.0); Sodium 127 mmol/L (137-145)
== END 2024-12-13 15:31 | disposition home or self-care (01) ==
LOC: ANHGOSHLAB 15:30
PROVIDERS: PCP Emergency Medicine; Visit Provider Emergency Medicine
DX: Z13.228 Encounter for screening for other metabolic disorders (principal)
CPT/HCPCS: 36415; 80048

== ENCOUNTER 2024-12-18 08:11 | Outpatient (RCR) | payer MEDICARE, SELFPAY ==
[2024-12-18 08:56] VITALS: BMI 22.4
[2024-12-18 09:02] VITALS: BP 105/78; PULSE 78; O2SAT 93
== END 2025-03-04 08:10 | disposition home or self-care (01) ==
LOC: ANHWOC 08:11
PROVIDERS: PCP Emergency Medicine; Visit Provider Emergency Medicine
DX: L97.909 Non-pressure chronic ulcer of unspecified part of unspecified lower leg with unspecified severity (principal); Z48.00 Encounter for change or removal of nonsurgical wound dressing
CPT/HCPCS: 99215; A9270; G0463

== ENCOUNTER 2025-01-04 09:47 | Outpatient (CLI) | payer MEDICARE, SELFPAY ==
--- OUTSIDE RECORDS SUMMARY | 2025-01-04 09:57 | XMS_ITS | Clinical Summary ---
Author Organization [facility] Address [address] [place] [address] Care Team Providers Care Ux Consultant Name Role Phone Pjnan Romulo DEL CID Primary Care Provider [phone] Source Comments [facility],non-owned Affiliates and Associated Physician Practices is amultiple site organization consisting of ambulatory clinics and hospital sitesin [place], [place], [place] and [place]. This disclosure is being madepursuant to the Care Everywhere program and may not contain all information available regarding this patient. Last updated 18.[facility] Allergies No known active allergies Medications * [...] fluticasone propionate (Flonase) 50 MCG/ACT nasal spray [place] 2 (two) sprays into each nostril once [...] Comments Blood Pressure 125/74 09/07/2022 2:19 PM SINGER SONGWRITER Pulse 114 09/07/2022 2:19 PM SINGER SONGWRITER Temperature 36.7 C (98.1 F) 09/07/2022 2:19 PM SINGER SONGWRITER Respiratory Rate 20 08/04/2022 3:46 AM SINGER SONGWRITER Oxygen Saturation 97% 09/07/2022 2:19 PM SINGER SONGWRITER Inhaled Oxygen Concentration 40% 07/21/2022 1 1:00 AM SINGER SONGWRITER Weight 78.5 kg (173 lb) 10/12/2022 12:28 PM SINGER SONGWRITER Height 185.4 cm (6' 1 ) 10/12/2022 12:28 PM SINGER SONGWRITER Body Mass Index 22.82 10/12/2022 12:28 PM SINGER SONGWRITER Plan of Treatment Health Maintenance Due Date [...] to Subscriber:Self Name:REX MONTES Payer ID:[id number] (NAIC) Type:[employer] Address: [place] [phone] Member Subscriber Plan / Payer (Ef fective 2021-Present) Name:Rex Montes Member ID:Not on file Relation to Subscriber:Self Name:Rex Montes Payer ID:[id number] (NAIC) Type:HMO Address: [place] [phone] Advance Directives * Full Code (Latest Code Status on File) Date Activated Date Inactivated Comments 07/17/2022 4:21 AM 08/04/2022 4:07 PM Care Teams Ux Consultant Relationship Specialty Start Date End Date Romulo Dempsey DO [address] [place] [phone] PCP - General 09/02/22
--- OUTSIDE RECORDS SUMMARY | 2025-01-04 09:57 | XMS_ITS | Referral Summary ---
Author Organization [facility] [address] Address [address] [place] [address] Care Team Providers Care Technical Advisor Name Role Phone Romulo Dempsey Primary Care Provider [phone] Allergies No known active allergies Medications atorvastatin [...] on file Legal Sex Male 4:38 AM TUGBOAT MATE Gender Identity Not on file Sexual Orientation Not on file Last Filed Vital Signs Vital Sign Reading Time Taken Comments Blood Pressure 132/66 04/23/2024 10:16 AM CDT Pulse 80 04/23/2024 10:16 AM CDT Temperature 36.9 C (98.5 F) 05/14/2022 5:57 PM CDT Respiratory Rate 16 05/14/2022 5:57 PM CDT Oxygen Saturation 93% 07/11/2023 9:30 AM TUGBOAT MATE Inhaled Oxygen Concentration - - Weight 79.2 kg (174 lb 9.6 oz) 04/23/2024 10:16 AM CDT Height 185.4 cm (6' 1 ) 04/23/2024 10:16 AM CDT Body Mass Index 23.04 04/23/2024 10:16 AM CDT Plan of Treatment Not on file Insurance AETNA MEDICARE GOLD Care Teams Technical Advisor Relationship Specialty Start Date End Date Romulo Dempsey DO PCP - General Family Medicine 02/14/23
--- OUTSIDE RECORDS SUMMARY | 2025-01-04 09:57 | XMS_ITS | Clinical Summary ---
Author Organization [facility] Address [address] [place] [address] Care Team Providers Care Air And Hydronic Balancing Technician Name Role Phone Erasmo Teran MD Primary Care Provider [phone] Allergies No known active allergies Medications gabapentin [...] 1-dose 75+ series) 2031 Insurance Care Teams Air And Hydronic Balancing Technician Relationship Specialty Start Date End Date Erasmo Teran MD [address] [place] [address] PCP - General Family Practice 03/07/19
--- OUTSIDE RECORDS SUMMARY | 2025-01-04 09:57 | XMS_ITS | Clinical Summary ---
Author Organization [facility] [address] Address [address] [place] [address] Care Team Providers Care Field Installation Technician Name Role Phone Romulo Dempsey Primary Care Provider [phone] Allergies No known active allergies Medications atorvastatin [...] Date Diagnosed Date Premature atrial contraction 07/11/2023 OCE (dyspnea on exertion) 04/18/2023 Postural dizziness with [...] on file Legal Sex Male 4:38 AM GOLF COURSE KEEPER Gender Identity Not on file Sexual Orientation Not on file Obstetrics History Last Filed Vital Signs Vital Sign Reading Time Taken Comments Blood Pressure 132/66 04/23/2024 10:16 AM CDT Pulse 80 04/23/2024 10:16 AM CDT Temperature 36.9 C (98.5 F) 05/14/2022 5:57 PM CDT Respiratory Rate 16 05/14/2022 5:57 PM CDT Oxygen Saturation 93% 07/11/2023 9:30 AM GOLF COURSE KEEPER Inhaled Oxygen Concentration - - Weight 79.2 [...] season) 2024 08/10/2021, 11/20/2020, 10/30/2020 Influenza Vaccine (Season Ended) 2025 06/13/2021, 06/04/2019, 06/13/2018 Zoster Vaccine Completed 08/27/2021, 05/29, 03/02/2016 Abdominal Aortic Aneurysm (A AA) Screen Completed 07/16/2022 Insurance AETNA MEDICARE GOLD Care Teams Field Installation Technician Relationship Specialty Start Date End Date Romulo Dempsey DO PCP - General Family Medicine 02/14/23
--- NOTE | 2025-01-04 10:09 | ECHO_ITS ---
Patient Info Name: Francis Montes Age: 69 years : 1955 Gender: Male Ht: 72 in Wt: 170 lbs BSA: 1.98 m2 HR: 95 bpm BP: 88 / 62 mmHg Technical Quality: Poor Exam Date: 01/04/2025 10:22 AM Exam Location: Echo Lab Patient Status: Outpatient Admit Date: 01/04/2025 Staff Ordering Physician: Abdirahman Abernathy MD Cdl Flatbed Truck Driver: Guadalupe Melvin RDCS Attending Provider: Abdirahman Abernathy MD Referring Physician: Michela MOORE; Exam Type: CA echo dop color flow w con Study Info Indications R01.1 - Cardiac murmur, unspecified Complete two-dimensional, color flow and Doppler transthoracic echocardiogram is performed with contrast to opacify the left ventricle and to improve the deliniation of the left ventricle endocardial borders. Contrast/Agitated Saline Contrast/Ag. Saline: Definity Amount: 2.00 ml IV Access Condition: patent with no signs of infiltration New IV Access: Left Site Condition: IV removed Reason for Poor Study: patient body habitus Summary 1. Definity contrast administered improved wall motion interpretation. 2. Left ventricular chamber dimension is normal. 3. Left ventricular systolic function is normal, estimated at 65-70%. 4. The left ventricular diastolic function is grade I diastolic dysfunction. 5. E/e' 8 is minimally elevated. 6. The aortic valve is not well visualized. Cannot determine number of aortic valve leaflets. 7. There is severe aortic valve sclerosis. 8. There is moderate aortic valve stenosis based on a peak velocity of 141.02 cm/s, mean gradient of 5 mmHg, and aortic valve area of 1.44 cm2. 9. No pulmonary hypertension, estimated pulmonary arterial systolic pressure is 15 mmHg. Left Ventricle E/e' 8 is minimally elevated. Definity contrast administered improved wall motion interpretation. Left ventricular chamber dimension is normal. Left ventricular systolic function is normal, estimated at 65-70%. The left ventricular diastolic function is grade I diastolic dysfunction. Right Ventricle Right ventricular systolic function is normal and with normal TAPSE 1.9 cm. Right ventricular chamber dimension is normal. Left Atria Left atrial chamber dimension is normal. Right Atria Right atrial chamber dimension is normal. Aortic Valve The aortic valve is not well visualized. Cannot determine number of aortic valve leaflets. There is moderate aortic valve stenosis based on a peak velocity of 141.02 cm/s, mean gradient of 5 mmHg, and aortic valve area of 1.44 cm2. There is severe aortic valve sclerosis. There is no aortic valve regurgitation. Pulmonic Valve There is no pulmonic regurgitation. Mitral Valve There is no mitral valve stenosis. There is no mitral valve regurgitation. Tricuspid Valve There is no tricuspid valve regurgitation. No pulmonary hypertension, estimated pulmonary arterial systolic pressure is 15 mmHg. Pericardium/Pleural There is no pericardial effusion. Inferior Vena Cava Normal inferior vena cava with >50% collapse upon inspiration consistent with normal right atrial pressure, 5 mmHg. Aorta The aortic root size at the sinus of Valsalva is normal. Left Ventricular Outflow Tract Name Value Normal LVOT 2D LVOT Diameter 1.89 cm LVOT Doppler LVOT Peak Gradient 2 mmHg LVOT Mean Gradient 1 mmHg LVOT VTI 12.59 cm LVOT VTI/AV VTI Ratio 0.51 LVOT Stroke Volume 35.27 ml LVOT CO 8.33 l/min LVOT CI 4.21 L/min/m2 Pulmonic Valve Name Value Normal PV Doppler PV Peak Gradient 2 mmHg Mitral Valve Name Value Normal MV Doppler MV Decel Steele 244.21 cm/s2 MV PHT 0 s MV Area (PHT) 3.08 cm2 4.00-5.00 MV Diastolic Function MV E Peak Velocity 60.16 cm/s MV A Peak Velocity 91.19 cm/s MV E/A 0.66 MV Decel Time 0 s MV Annular TDI MV E/e' (Septal) 9.72 <=8.00 MV E/e' (Lateral) 8.28 <=8.00 MV E/e' (Average) 9.00 Tricuspid Valve Name Value Normal TV Regurgitation Doppler TR Peak Velocity 161.28 cm/s TR Peak Gradient 10 mmHg Estimated PAP/RSVP RA Pressure 5 mmHg <=5 PA Systolic Pressure 15 mmHg <36 RV Systolic Pressure 15 mmHg <36 Aorta Name Value Normal Ascending Aorta Ao Root Diameter (MM) 2.42 cm Ao Root Diam Index (MM) 1.22 cm/m2 Aortic Valve Name Value Normal AV Doppler AV Peak Velocity 141.02 cm/s AV Peak Gradient 8 mmHg AV Mean Gradient 5 mmHg AV VTI 24.57 cm AV Area (Cont Eq VTI) 1.44 cm2 >=3.00 AV Area (Cont Eq Cain) 1.28 cm2 AV Regurgitation 2D LVOT Area 2.80 cm2 Ventricles Name Value Normal LV Dimensions 2D/MM IVS Diastolic Thickness (2D) 0.88 cm 0.60-1.00 LVID Diastole (2D) 3.70 cm 4.20-5.80 LVIW Diastolic Thickness (2D) 0.89 cm 0.60-1.00 LVID Systole (2D) 2.54 cm 2.50-4.00 LVOT Diameter 1.89 cm LV Mass (2D Cubed) 94.84 g 88.00-224.00 LV Mass Index (2D Cubed) 0.00 g/cm2 0.00-0.01 Relative Wall Thickness (2D) 0.48 LV Fractional Shortening/Ejection Fraction 2D/MM LV Fractional Shortening (2D) 31 % 25-43 LV EF (2D Teicholz) 60 % 52-72 LV Diastolic Volume (4C MOD) 68.73 ml LV EF (4C MOD) 73 % LV Diastolic Volume (2C MOD) 49.01 ml LV EF (2C MOD) 81 % LV Diastolic Volume (BP MOD) 58.47 ml 62.00-150.00 LV Diastolic Volume Index (BP MOD) 0.03 l/m2 0.03-0.07 LV Systolic Volume (BP MOD) 13.64 ml 21.00-61.00 LV Systolic Volume Index (BP MOD) 0.01 l/m2 0.01-0.03 LV EF (BP MOD) 77 % 52-72 LV Diastolic Length (4C) 7.39 cm LV Systolic Length (4C) 6.15 cm LV Stroke Volume (4C MOD) 50.04 ml RV Dimensions 2D/MM RVID Diastole (2D) 3.51 cm 2.50-3.50 Atria Name Value Normal LA Dimensions LA Volume (4C A-L) 21.89 ml RA Dimensions RA Area (4C) 13.99 cm2 <=18.00 Report Signatures
[2025-01-04] MEDS: PERFLUTREN LIPID MICROSPHERES 1.5 ML VIAL DILUTED TO 10 ML TOTAL VOLUME IV PUSH (10:53)
--- NOTE | 2025-01-04 11:17 | IVDEFINITY ---
Prior to administration of IV Definity the patient was educated on the risks and benefits of the imaging enhancing agent including potential adverse side effects. The patient verbalized understanding. Allergies were verified. No exclusion criteria were identified and at least one of the following inclusion criteria were met: 1) physician request, 2) patient technically difficult to image (per the [place] [employer] Echocardi[employer] guidelines of two or more segments not discernable within the apical view), or 3) questionable left ventricular function. ?
== END 2025-01-04 09:48 | disposition home or self-care (01) ==
PROVIDERS: PCP Emergency Medicine; Visit Provider Emergency Medicine
DX: R93.1 Abnormal findings on diagnostic imaging of heart and coronary circulation (principal); R01.1 Cardiac murmur, unspecified; I48.91 Unspecified atrial fibrillation
CPT/HCPCS: C8929; Q9957

== ENCOUNTER 2025-03-05 08:47 | Outpatient (CLI) | payer MEDICARE, SELFPAY ==
--- NOTE | ~2025-03-05 | NM_ITS ---
EXAMINATION: NM karla stress w perfusion DATE: 03/05/2025 11:49 INDICATION: Other forms of dyspnea TECHNIQUE: Rest images were obtained following intravenous administration of 11.6 mCi Tc99m tetrofosm in (Myoview). The patient was infused intravenously with Lexiscan (Regadenoson). Then, 34.4 mCi Tc99m tetrofosmin (Myoview) was administered intravenously, and stress images were obtained. Data was zach nstructed into short axis and horizontal and vertical long axis SPECT images. Gated SPECT images were also obtained. COMPARISON: None. FINDINGS: Mild nonreversible perfusion defect on both the rest and stress images at the apical septal and mid anteroseptal segments. No reversible ischemia. There is normal left ventricular chamber size , wall motion and ejection fraction. Left ventricular ejection fraction measures 70%. IMPRESSION: 1. 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 No rev ersible ischemia.. 2. Left ventricular ejection fraction measuring 70%. Reviewed, dictated and finalized at location A. IMPRESSION: 1. Small mild nonreversible infarct involving the apical septal and mid anteros eptal segments. No reversible ischemia.. 2. Left ventricular ejection fraction measuring 70%.
--- OUTSIDE RECORDS SUMMARY | 2025-03-05 08:53 | XMS_ITS | Clinical Summary ---
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 Gender Identity Not on file Sexual Orientation Not on file Obstetrics History Last Filed Vital Signs Vital Sign Reading Time Taken Comments Blood Pressure 132/66 04/23/2024 10:16 AM CDT Pulse 80 04/23/2024 10:16 AM CDT Temperature 36.9 C (98.5 F) 05/14/2022 5:57 PM CDT Respiratory Rate 16 05/14/2022 5:57 PM CDT Oxygen Saturation 93% 07/11/2023 9:30 AM FORK ASSEMBLER Inhaled Oxygen Concentration - - Weight 79.2 kg (174 lb 9.6 oz) 04/23/2024 10:16 AM CDT Height 185.4 cm (6' 1) 04/23/2024 10:16 AM CDT Body Mass Index [...] 07/16/2022 Insurance [employer] MEDICARE GOLD Care Teams Press Hand Relationship Specialty Start Date End Date Romulo Dempsey DO PCP - General Family Medicine 02/14/23
--- OUTSIDE RECORDS SUMMARY | 2025-03-05 08:53 | XMS_ITS | Encounter Summary ---
Author Organization [facility] Healthcare Address [address] [place] [address] Care Team Providers Care Supervisor Gear Repair Name Role Phone Unknown, Notinfnidhi Primary Care Provider Unavail able Romulo Dempsey DO Primary Care Provider [phone] Encounter Details Date Type Department Care Team (Late st Contact Info) Description 12/03/2017 Orders Only [facility] Health Information Management [address] [place] [id number] Scanning, Provider Social History Tobacco Use Types Packs/Day Years Used Date Smoking Tobacco: Former Sex and Gender Information Value Date Recorded Sex Assigned at Not on file 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 Gender Identity Not on file Sexual Orientation Not on file documented as of this encounter Plan of Treatment Not on file documented as of this encounter Procedures Procedure Name Priority Date/Time Associated Diagnosis Comments CARDIOLOGY DOCUMENT SCAN 12/03/2017 documented in this encounter Results * Cardiology Document Scan (12/03/2017) Anatomical Region Laterality Modality Other us Provider Scanning CV CARDIAC SERVICES PROCEDURES Final Result documented in this encounter Visit Diagnoses Not on filedocumented in this encounter Additional Health Concerns Infection Onset Date Last Indicated Resolved Time COVID: Suspected 05/14/2022 05/14/2022 05/15/2022 3:07 AM CDT documented as of this encounter Care Teams Supervisor Gear Repair Relationship Specialty Start Date End Date Unknown, Vita PCP - General 05/14/22 02/13/23 Romulo Dempsey DO PCP - General Family Medicine 02/14/23 documented as of this encounter
--- OUTSIDE RECORDS SUMMARY | 2025-03-05 08:53 | XMS_ITS | Clinical Summary ---
Author Organization [facility] Address [address] [place] [address] Care Team Providers Care Theater Projectionist Name Role Phone Pjnan Romulo DEL CID Primary Care Provider [phone] Source Comments [facility],non-owned Affiliates and Associated Physician Practices is amultiple site organization consisting of ambulatory clinics and hospital sitesin [place], [place], [place] and [place]. This disclosure is being madepursuant to the Care Everywhere program and may not contain all information available regarding this patient. Last updated 18.[facility] Allergies No known active allergies Medications * [...] fluticasone propionate (Flonase) 50 MCG/ACT nasal spray [place] 2 (two) sprays into each nostril once [...] Comments Blood Pressure 125/74 09/07/2022 2:19 PM CORE OVEN TENDER Pulse 114 09/07/2022 2:19 PM CORE OVEN TENDER Temperature 36.7 C (98.1 F) 09/07/2022 2:19 PM CORE OVEN TENDER Respiratory Rate 20 08/04/2022 3:46 AM CORE OVEN TENDER Oxygen Saturation 97% 09/07/2022 2:19 PM CORE OVEN TENDER Inhaled Oxygen Concentration 40% 07/21/2022 1 1:00 AM CORE OVEN TENDER Weight 78.5 kg (173 lb) 10/12/2022 12:28 PM CORE OVEN TENDER Height 185.4 cm (6' 1) 10/12/2022 12:28 PM CORE OVEN TENDER Body Mass Index 22.82 10/12/2022 12:28 PM CORE OVEN TENDER Plan of Treatment Health Maintenance Due Date [...] 11/20/2020, 10/30/2020 DEPRESSION SCREENING 08/29/2024 INFLUENZA VACCINE (#1) 2025 2, 06/13/2021, 06/04/2019, Additional history exists Respiratory Syncytial [...] patient's age to complete this topic Insurance [employer] Address: [place] [id number] Member Subscriber Plan / Payer (Ef fective 2021-Present) Name:Rex Montes Member ID:Not on file Relation to Subscriber:Self Name:Rex Montes Payer ID:[id number] (NAIC) Type:HMO Address: [place] [id number] Advance Directives * Full Code (Latest Code Status on File) Date Activated Date Inactivated Comments 07/17/2022 4:21 AM 08/04/2022 4:07 PM Care Teams Theater Projectionist Relationship Specialty Start Date End Date Romulo Dempsey DO [address] [place] [phone] PCP - General 09/02/22
--- OUTSIDE RECORDS SUMMARY | 2025-03-05 08:53 | XMS_ITS | Clinical Summary ---
Author Organization [facility] Address [address] [place] [address] Care Team Providers Care Cash Person Name Role Phone Erasmo Teran MD Primary Care Provider [phone] Allergies No known active allergies Medications gabapentin [...] 11:16 AM CDT Height 188 cm (6' 2) 05/06/2020 11:16 AM CDT Body Mass Index [...] (1 of 2) 2006 INFLUENZA VACCINE (#1) 2025 RSV VACCINE (60+ or ) (1 - 1-dose 75+ series) 2031 Insurance Care Teams Cash Person Relationship Specialty Start Date End Date Erasmo Teran MD [address] [place] [address] PCP - General Family Practice 03/07/19
--- OUTSIDE RECORDS SUMMARY | 2025-03-05 08:53 | XMS_ITS | Referral Summary ---
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 Gender Identity Not on file Sexual Orientation Not on file Last Filed Vital Signs Vital Sign Reading Time Taken Comments Blood Pressure 132/66 04/23/2024 10:16 AM CDT Pulse 80 04/23/2024 10:16 AM CDT Temperature 36.9 C (98.5 F) 05/14/2022 5:57 PM CDT Respiratory Rate 16 05/14/2022 5:57 PM CDT Oxygen Saturation 93% 07/11/2023 9:30 AM HORSE STUD MANAGER Inhaled Oxygen Concentration - - Weight 79.2 kg (174 lb 9.6 oz) 04/23/2024 10:16 AM CDT Height 185.4 cm (6' 1) 04/23/2024 10:16 AM CDT Body Mass Index 23.04 04/23/2024 10:16 AM CDT Plan of Treatment Not on file Insurance [employer] MEDICARE GOLD Care Teams Caterer'S Aide Relationship Specialty Start Date End Date Romulo Dempsey DO PCP - General Family Medicine 02/14/23
--- NOTE | 2025-03-05 09:30 | EST_ITS ---
Patient Info Name: Francis Montes Age: 69 years : 1955 Gender: Male Ht: 73 in Wt: 173 lbs BSA: 2.01 m2 HR: 108 bpm BP: 146 / 76 mmHg Exam Date: 03/05/2025 9:30 AM Patient Status: O Admit Date: 03/05/2025 Exam Type: CA stress karla w NM A regadenoson stress test was performed. Staff Referring Physician: Wilner Redmond DO Attending Provider: Wilner Redmond DO Exercise Technologist: Lexie Altamirano Exercise Physician: Wilner Redmond DO Summary 1. 1. Negative lexiscan stress test for ischemic ST changes by ECG criteria. 2. 2. Baseline hypertension. 3. 3. Nuclear scan to follow and will be reported separately. Please correlate with it. 4. 4. Patient informed of the above results. Protocol: Lexiscan Stress ECG Details Stage: REST Duration (min): 0 min : 55 sec HR (bpm): 108 SBP (mmHg): 146 DBP (mmHg): 76 Stage: REST Duration (min): 5 min : 2 sec HR (bpm): 114 SBP (mmHg): 146 DBP (mmHg): 76 Stage: STAGE 1 Duration (min): 0 min : 59 sec HR (bpm): 111 SBP (mmHg): 145 DBP (mmHg): 66 Stage: RECOVERY Duration (min): 1 min : 0 sec HR (bpm): 121 SBP (mmHg): 145 DBP (mmHg): 66 Stage: RECOVERY Duration (min): 2 min : 0 sec HR (bpm): 117 SBP (mmHg): 145 DBP (mmHg): 66 Stage: RECOVERY Duration (min): 3 min : 0 sec HR (bpm): 118 SBP (mmHg): 137 DBP (mmHg): 71 Stage: RECOVERY Duration (min): 4 min : 0 sec HR (bpm): 113 SBP (mmHg): 137 DBP (mmHg): 71 Stage: RECOVERY Duration (min): 5 min : 0 sec HR (bpm): 111 SBP (mmHg): 110 DBP (mmHg): 58 Stage: RECOVERY Duration (min): 6 min : 0 sec HR (bpm): 112 SBP (mmHg): 110 DBP (mmHg): 58 Stage: RECOVERY Duration (min): 6 min : 53 sec HR (bpm): 110 SBP (mmHg): 119 DBP (mmHg): 67 Rest HR: 114 bpm Peak HR: 125 bpm Rest Sys BP: 146 mmHg Peak Sys BP: 145 mmHg Max Pred HR: 152 bpm % Max Pred HR: 82 % Target HR: 129 bpm Max RPP: 18,125 bpm*mmHg Termination Reason: Completed protocol Cardiac Symptoms: None Total Time: 1 min : 0 sec Rest Lai BP: 76 mmHg Peak Lai BP: 66 mmHg Total Dose: 0.4 mg Resting ECG Sinus tachycardia. None. Stress ECG No ST changes. Report Signatures
== END 2025-03-05 08:48 | disposition home or self-care (01) ==
PROVIDERS: PCP Emergency Medicine; Visit Provider Internal Medicine Cardiovascular Disease
DX: R06.09 Other forms of dyspnea (principal)
CPT/HCPCS: 78452; 93017; A9502; J2785

== ENCOUNTER 2025-05-11 12:15 | Inpatient (IN) | payer MEDICARE, SELFPAY ==
[2025-05-11] VITALS (10 sets, daily range): BP systolic 108–153; BP diastolic 58–99; PULSE 40–107; RESP 16–20; TEMP 36.8–37.2; O2SAT 88–100; BMI 22.3
--- NOTE | ~2025-05-11 | US_ITS ---
EXAMINATION: US carotid duplex BI DATE: 05/18/2025 19:12 INDICATION: Subclavian stenosis. TECHNIQUE: Grayscale, color Doppler, and pulsed Doppler images of the cervical carotid arteries were obtained. The degree of vessel stenosis is placed in one of the following categories: normal, <50%, 50-69%, >=70% but less than near- occlusion, near-occlusion, or total occlusion. Note that percent stenosis relative to normal distal artery lumen diameter is indirectly measured from velocity measurements as described by Raman, et al. Radiology 2003; 229:340-346. COMPARISON: None. FINDINGS: RIGHT: The right common carotid artery (CCA) peak systolic velocity (PSV) is 135 cm/s. The right internal carotid artery (ICA) PSV is 115 cm/s. The right ICA end- diastolic velocity (EDV) is 13 cm/s. The right ICA/CCA PSV ratio is 0.9. Grayscale and color Doppler images yield an estimate of <50% diameter reduction from plaque in the ICA. There is antegrade flow in the right vertebral artery. LEFT: The left CCA PSV is 158 cm/s. The left ICA PSV is 132 cm/s. The left ICA EDV is 28 cm/s. The left ICA/CCA PSV ratio is 0.8. Grayscale and color Doppler images yield an estimate of <50% diameter reduction from plaque in the ICA. There is retrograde flow in the left vertebral artery. IMPRESSION: 1. <50% stenosis in the right internal carotid artery. 2. <50% stenosis in the left internal carotid artery. 3. Retrograde flow in left vertebral artery, consistent with subclavian steal. Reviewed, dictated and finalized at location E.
--- NOTE | ~2025-05-11 | XR_ITS ---
EXAMINATION: XR foot RT min 3V, 05/11/2025 15:15 CDT HISTORY: wound 2/3 toes COMPARISON: No comparisons available. Findings: No acute fracture or malalignment. No significant degenerative changes. Soft tissues unremarkable. Impression: No acute fracture or malalignment. Reviewed, dictated and finalized at location A. Impression: No acute fracture or malalignment.
--- NOTE | ~2025-05-11 | US_ITS ---
EXAMINATION: US arterial ankle brachial ind DATE: 05/12/2025 14:33 INDICATION: Foot ulcerations TECHNIQUE: Segmental pressures and plethysmographic and Doppler waveforms of the brachial and lower extremity arteries were obtained. COMPARISON: None. FINDINGS: Right and left brachial artery pressures of 116 mm Hg and 85 mm Hg, respectively, are concordant (normal difference <= 30 mmHg). The right ankle-brachial index (FLORES) is 0.59 (normal >= 0.9-1.0). The right great toe-brachial index (TBI) is 0.42 (normal >= 0.65). Arterial Doppler waveforms are monophasic with brisk systolic upstrokes at both right posterior tibial and dorsalis pedis arteries. The left FLORES is 0.74. The left TBI is 0.13. Arterial Doppler waveforms are monophasic at the left dorsalis pedis artery and biphasic at the posterior tibial artery, both with brisk systolic upstrokes. IMPRESSION: 1. Arterial occlusive disease to the bilateral lower limbs interval worsening, now with moderately decreased bilateral ABIs and moderately decreased right TBI and severely decreased left TBI. Reviewed, dictated and finalized at location A.
--- NOTE | ~2025-05-11 | CT_ITS ---
EXAMINATION: CT brain wo gavino, 05/11/2025 15:20 CDT HISTORY: intermittent confusion/lethargy COMPARISON: No comparisons available. Technique: Axial images obtained of the brain without contrast. One or more of the following dose reduction techniques were used: automated exposure control, adjustment of the mA and/or kV according to patient size, use of iterative reconstruction technique. Findings: No acute infarct or parenchymal hemorrhage. No abnormal mass or mass effect. No midline shift. No extra-axial fluid collections. No hydrocephalus. Mastoid air cells unremarkable. Sinuses and orbits unremarkable. No acute fracture. No significant facial or scalp soft tissue swelling evident. No radiopaque foreign body is seen. Impression: 1.No acute intracranial abnormality. Reviewed, dictated and finalized at location A. Impression: 1.No acute intracranial abnormality.
--- NOTE | ~2025-05-11 | XR_ITS ---
EXAMINATION: XR foot LT min 3V, 05/11/2025 15:15 CDT HISTORY: wound 1st toe COMPARISON: No comparisons available. Findings: There is osseous destruction noted of the distal aspect of the distal phalanx first digit. No significant degenerative changes. Soft tissues unremarkable. Impression: Osteomyelitis detailed above Reviewed, dictated and finalized at location A. Impression: Osteomyelitis detailed above
--- OUTSIDE RECORDS SUMMARY | 2025-05-11 12:17 | XMS_ITS | Clinical Summary ---
Author Organization [facility] Address [address] [place] [address] Care Team Providers Care Fingerprint Clerk Name Role Phone Pjnan Romulo DEL CID Primary Care Provider [phone] Source Comments [facility],non-owned Affiliates and Associated Physician Practices is amultiple site organization consisting of ambulatory clinics and hospital sitesin [place], [place], [place] and [place]. This disclosure is being madepursuant to the Care Everywhere program and may not contain all information available regarding this patient. Last updated 18.[facility] Allergies No known active allergies Medications * [...] fluticasone propionate (Flonase) 50 MCG/ACT nasal spray [place] 2 (two) sprays into each nostril once [...] Comments Blood Pressure 125/74 09/07/2022 2:19 PM QUALITY ASSURANCE SPECIALIST Pulse 114 09/07/2022 2:19 PM QUALITY ASSURANCE SPECIALIST Temperature 36.7 C (98.1 F) 09/07/2022 2:19 PM QUALITY ASSURANCE SPECIALIST Respiratory Rate 20 08/04/2022 3:46 AM QUALITY ASSURANCE SPECIALIST Oxygen Saturation 97% 09/07/2022 2:19 PM QUALITY ASSURANCE SPECIALIST Inhaled Oxygen Concentration 40% 07/21/2022 1 1:00 AM QUALITY ASSURANCE SPECIALIST Weight 78.5 kg (173 lb) 10/12/2022 12:28 PM QUALITY ASSURANCE SPECIALIST Height 185.4 cm (6' 1) 10/12/2022 12:28 PM QUALITY ASSURANCE SPECIALIST Body Mass Index 22.82 10/12/2022 12:28 PM QUALITY ASSURANCE SPECIALIST Plan of Treatment Health Maintenance Due Date [...] (1 of 2) 2006 AAA SCREENING 2021 DEPRESSION SCREENING 08/29/2024 COVID-19 VACCINE (4 - 2024- season) 2025 08/10/2021, 11/20/2020, 10/30/2020 INFLUENZA VACCINE (#1) 2025 2, 06/13/2021, 06/04/2019, [...] to Subscriber:Self Name:REX MONTES Payer ID:[id number] (NAIC) Type:GAMEVILO Address: [place] [id number] Member Subscriber Plan / Payer (Ef fective 2021-Present) Name:Rex Montes Member ID:Not on file Relation to Subscriber:Self Name:Rex Montes Payer ID:[id number] (NAIC) Type:HMO Address: [place] [phone] Advance Directives * Full Code (Latest Code Status on File) Date Activated Date Inactivated Comments 07/17/2022 4:21 AM 08/04/2022 4:07 PM Care Teams Fingerprint Clerk Relationship Specialty Start Date End Date Romulo Dempsey DO [address] [place] [phone] PCP - General 09/02/22
--- OUTSIDE RECORDS SUMMARY | 2025-05-11 12:17 | XMS_ITS | Clinical Summary ---
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 Concentric LV remodeling. The Ejection Fraction is visually estimated to be 65-70 %. Left ventricular diastolic function is indeterminate due to tachycardia. 3. Normal right ventricular size. Normal right ventricular systolic function. 4. IVC is normal in size. 5. No obvious valvular disease. However, imaging and doppler evaluation of valvular structures is very limited due to positioning and tachycardia/arrhythmia; therefore, interpretation of valvular structures is limited. COMPARISONS: No change compared to prior study on: 06/15/2023. ATTESTATION: I have personally reviewed and interpreted this study without fellow or resident. - DISCLAIMER: The study images and the final report will be retained in the patient chart by the Echo Laboratory for the legally required time period. This chart constitutes the legal record of any testing performed. FINDINGS: Left Ventricle: Concentric LV remodeling. The Ejection Fraction is visually estimated to be 65-70 %. Left ventricular diastolic function is indeterminate due to tachycardia. Unable to assess global longitudinal strain due to image quality. Right Ventricle: Normal right ventricular size. Normal right ventricular systolic function. Left Atrium: The left atrium is normal in size. Right Atrium: The right atrium is normal in size. Atrial Septum: Normal interatrial septum. Mitral Valve: Normal Mitral Valve Structure. Mild mitral annular calcification. Trace mitral valve regurgitation. No stenosis present. The mitral valve area by pressure half-time is 5.1 cm2. Aortic Valve: Aortic valve not well visualized due to poor acoustic windows; unable to determine morphology. No aortic regurgitation. The mean transaortic gradient is 7 mmHg. The aortic valve area by the continuity equation (using VTI) is 2.06 cm2. Aortic valve dimensionless index is 0.45. Tricuspid Valve: Normal Tricuspid valve structure. Mild tricuspid regurgitation. Pulmonic Valve: The pulmonic valve is not well visualized due to poor acoustic windows. No pulmonic regurgitation. Pericardium: No pericardial effusion. Aorta: Mild aortic root dilation at sinuses of Valsalva. IVC: IVC is normal in size. The IVC was <2.1 cm and collapsibility >50%. (est. RA pressure 0-5 mmHg). Rhythm: Significant tachycardia that appears to be sinus with frequent ectopy (ie PVCs). MEASUREMENTS: 2D/MM Value Range Doppler Value Range LVIDd 2D 3.30 cm [ 4.20 - 5.80 ] AV Peak Cain 1.9 m/s [ 1.0 - 1.7 ] LVIDs 2D 2.10 cm [ 2.50 - 4.00 ] AV Peak PG 14.44 mmHg IVSd 2D 1.10 cm [ 0.60 - 1.00 ] AV Mean PG 7 mmHg LVPWd 2D 1.10 cm [ 0.60 - 1.00 ] AV VTI 33.2 cm LV Thickness Ratio 1.0 LVOT Peak Cain 1.2 m/s [ 0.7 - 1.1 ] LV Mass 2D 110.27 g LVOT Peak PG 5.76 mmHg LV Mass Index 2D 54.53 g/m2 LVOT Mean PG 3 mmHg RWT 0.67 LVOT VTI 15.1 cm Visually Estimated EF 65-70 % LVOT Diam 2.40 cm LA Length 4C 4.87 cm GRANT VTI 2.06 cm2 RV Base Dimen 2D 3.8 cm [ 2.5 - 4.2 ] LVOT/AV VTI 0.45 - Dimensionless index (DVI) TAPSE 2.80 cm [ 1.71 - 5.00 ] MV E Peak Cain 1.1 m/s [ 0.6 - 1.3 ] RA Volume 23.70 ml MV A Peak Cain 1.0 m/s [ 1.0 - 1.2 ] RA Volume Index 11.72 ml/m2 MV E/A 1.2 ratio [ 0.8 - 1.5 ] IVC Diam 1.40 cm MV PHT 43.00 msec [ 20.00 - 100.00 ] AoR Diam 2D 3.90 cm [ 3.10 - 3.70 ] MVA PHT 5.12 cm2 Ao Root Index 1.93 cm/m2 [ 1.00 - 2.00 ] MV Decel Time 147.00 msec [ 104.00 - 258.00 ] RV S` 17.00 cm/sec PV Peak Cain 1.2 m/s [ 0.4 - 0.8 ] PV Peak PG 5.76 mmHg Electronically Signed By: Kate Morgan MD 04/19/2025 2:05:24 PM CDT Procedure Note Kate Morgan, - 04/19/2025 [facility] [place] [address] Transthoracic Echocardiographic Report Patient Name: REX HAWTHORNE D : 1955 (69y 10m) Gender: M Study Date: 04/19/2025 07:33:50 AM Ht(Inch): 73 Wt(Lb): 175.05 BSA: 2.02 Lvn: Sandeep Echavarria RDCS Location: [id number] Order Provider:ANN LEIGH Heart Rate: 124 BMI: 23.09 BP: 107 / 75 Ref Provider: ANN LEIGH PROCEDURES: Echocardiographic Report: Transthoracic complete echo with strain imagingand contrast, 2D, spectral and tissue Doppler, color flow Doppler, M-mode. Additional Procedures: Myocardial strain imaging was performed. Contrast: 0.8 ml Optison Administered, (2.2 ml wasted). Technically difficult study due to: Poor acoustic windows. Patient unableto cooperate. Limited visualization of some cardiac structures precludes the ability toobtain complete measurements - INDICATIONS: Syncope. CONCLUSIONS: 1. Significant tachycardia and arrhythmia noted during study, HR 110-150bpm. Measurements and interpretation is limited. 2. Concentric LV remodeling. The Ejection Fraction is visually estimatedto be 65-70 %. Left ventricular diastolic function is indeterminate due to tachycardia. 3. Normal right ventricular size. Normal right ventricular systolicfunction. 4. IVC is normal in size. 5. No obvious valvular disease. However, imaging and doppler evaluation ofvalvular structures is very limited due to positioning and tachycardia/arrhythmia;therefore, interpretation of valvular structures is limited. COMPARISONS: No change compared to prior study on: 06/15/2023. ATTESTATION: I have personally reviewed and interpreted this study without fellow orresident. - DISCLAIMER: The study images and the final report will be retained in the patientchart by the Echo Laboratory for the legally required time period. This chart constitutesthe legal record of any testing performed. FINDINGS: Left Ventricle: Concentric LV remodeling. The Ejection Fraction isvisually estimated to be 65-70 %. Left ventricular diastolic function is indeterminate due totachycardia. Unable to assess global longitudinal strain due to image quality. Right Ventricle: Normal right ventricular size. Normal right ventricularsystolic function. Left Atrium: The left atrium is normal in size. Right Atrium: The right atrium is normal in size. Atrial Septum: Normal interatrial septum. Mitral Valve: Normal Mitral Valve Structure. Mild mitral annularcalcification. Trace mitral valve regurgitation. No stenosis present. The mitral valve area bypressure half-time is 5.1 cm2. Aortic Valve: Aortic valve not well visualized due to poor acousticwindows; unable to determine morphology. No aortic regurgitation. The mean transaorticgradient is 7 mmHg. The aortic valve area by the continuity equation (using VTI) is 2.06 cm2.Aortic valve dimensionless index is 0.45. Tricuspid Valve: Normal Tricuspid valve structure. Mild tricuspidregurgitation. Pulmonic Valve: The pulmonic valve is not well visualized due to pooracoustic windows. No pulmonic regurgitation. Pericardium: No pericardial effusion. Aorta: Mild aortic root dilation at sinuses of Valsalva. IVC: IVC is normal in size. The IVC was <2.1 cm and collapsibility >50%.(est. RA pressure 0-5 mmHg). Rhythm: Significant tachycardia that appears to be sinus with frequentectopy (ie PVCs). MEASUREMENTS: 2D/MM Value Range DopplerValue Range LVIDd 2D 3.30 cm [ 4.20 - 5.80 ] AV Peak Vel1.9 m/s [ 1.0 - 1.7 ] LVIDs 2D 2.10 cm [ 2.50 - 4.00 ] AV Peak PG14.44 mmHg IVSd 2D 1.10 cm [ 0.60 - 1.00 ] AV Mean PG7 mmHg LVPWd 2D 1.10 cm [ 0.60 - 1.00 ] AV VTI33.2 cm LV Thickness Ratio 1.0 LVOT Peak Vel1.2 m/s [ 0.7 - 1.1 ] LV Mass 2D 110.27 g LVOT Peak PG5.76 mmHg LV Mass Index 2D 54.53 g/m2 LVOT Mean PG3 mmHg RWT 0.67 LVOT VTI15.1 cm Visually Estimated EF 65-70 % LVOT Diam2.40 cm LA Length 4C 4.87 cm GRANT VTI2.06 cm2 RV Base Dimen 2D 3.8 cm [ 2.5 - 4.2 ] LVOT/AV VTI0.45 - Dimensionless index (DVI) TAPSE 2.80 cm [ 1.71 - 5.00 ] MV E Peak Vel1.1 m/s [ 0.6 - 1.3 ] RA Volume 23.70 ml MV A Peak Vel1.0 m/s [ 1.0 - 1.2 ] RA Volume Index 11.72 ml/m2 MV E/A1.2 ratio [ 0.8 - 1.5 ] IVC Diam 1.40 cm MV PHT43.00 msec [ 20.00 - 100.00 ] AoR Diam 2D 3.90 cm [ 3.10 - 3.70 ] MVA PHT5.12 cm2 Ao Root Index 1.93 cm/m2 [ 1.00 - 2.00 ] MV Decel Gzpm641.00 msec [ 104.00 - 258.00 ] RV S` 17.00 cm/sec PV Peak Cain 1.2 m/s [ 0.4 - 0.8 ] PV Peak PG 5.76 mmHg Electronically Signed By: Kate Morgan MD 04/19/2025 2:05:24 PM CDT us Ann Leigh NP CV ECHO PROCEDURES Final R esult * POCT glucose (04/18/2025 8:43 PM CDT) Glucose, POC 99 70 - 199 mg/dL Blood 04/18/2025 8:43 PM CDT 04/18/2025 8:43 PM CDT Courtney Merchant MD LAB POCT ORDERABLES - DEVICE Final Result [facility] Department [place] [address] * POCT glucose (04/18/2025 5:27 PM CDT) Glucose, POC 124 70 - 199 mg/dL Comment:Glu2: RN/ Notified Glucose comment 1 Glu2: RN/ Notified [facility] Blood 04/18/2025 5:27 PM CDT 04/18/2025 5:27 PM CDT Courtney Merchant MD LAB POCT ORDERABLES - DEVICE Final Result Performing Organization Address City/[facility] Co de Phone Number [facility] [place] [address] * POCT glucose (04/18/2025 12:57 PM CDT) [facility] Signature Glucose, POC 113 70 - 199 mg/dL Comment:Glu2: RN/MD Notified Glucose comment 1 Glu2: RN/MD Notified [facility] Blood 04/18/2025 12:5 7 PM CDT 04/18/2025 12:57 PM CDT Courtney Merchant MD LAB POCT ORDERABLES - DEVICE Final Result Performing Organization Address [facility] de Phone Number [facility] [place] [address] * XR Shoulder Left 2 or More Views (04/18/2025 8:51 AM CDT) Anatomical Region Laterality Modality Upper Extremities, Shoulder Left Comp uted Radiography 04/18/2025 9:06 AM CDT Impressions 04/18/2025 9:06 AM CDT 1. Unchanged left glenohumeral osteoarthritis with superior migration indicating rotator cuff arthropathy. 2. No acute radiographic findings of the right femur. Electronically signed by: Rafael Khanna M.D. Narrative 04/18/2025 9:06 AM CDT XR SHOULDER LEFT 2 OR MORE VIEWS, XR FEMUR RIGHT 2 OR MORE VIEWS HISTORY: Left shoulder and right thigh pain. FINDINGS: 2 views of the left shoulder and 2 views of the right femur are obtained and compared with 04/17/2025. Left shoulder: There is no fracture. There is mild acromioclavicular and glenohumeral osteoarthritis. Unchanged superior migration of the humeral head. Soft tissues are normal. Right femur: There is no fracture. No focal osseous lesion. Mild to moderate right hip osteoarthritis. Alignment and soft tissues are normal. Procedure Note Rafael Khanna MD - 04/18/2025 XR SHOULDER LEFT 2 OR MORE VIEWS, XR FEMUR RIGHT 2 OR MORE VIEWS HISTORY: Left shoulder and right thigh pain. FINDINGS: 2 views of the left shoulder and 2 views of the right femur are obtained and compared with 04/17/2025. Left shoulder: There is no fracture. There is mild acromioclavicular and glenohumeral osteoarthritis. Unchanged superior migration of the humeral head. Soft tissues are normal. Right femur: There is no fracture. No focal osseous lesion. Mild to moderate right hip osteoarthritis. Alignment and soft tissues are normal. IMPRESSION: 1. Unchanged left glenohumeral osteoarthritis with superior migration indicating rotator cuff arthropathy. 2. No acute radiographic findings of the right femur. Electronically signed by: Rafael Khanna M.D. Heather Baez NP IMG XR PROCEDURES Final R esult * XR Femur Right 2 or More Views (04/18/2025 8:50 AM CDT) Anatomical Region Laterality Modality Lower Extremities, Thigh, Femur Right Computed Radiography 04/18/2025 9:06 AM CDT Impressions 04/18/2025 9:06 AM CDT 1. Unchanged left glenohumeral osteoarthritis with superior migration indicating rotator cuff arthropathy. 2. No acute radiographic findings of the right femur. Electronically signed by: Rafael Khanna M.D. Narrative 04/18/2025 9:06 AM CDT XR SHOULDER LEFT 2 OR MORE VIEWS, XR FEMUR RIGHT 2 OR MORE VIEWS HISTORY: Left shoulder and right thigh pain. FINDINGS: 2 views of the left shoulder and 2 views of the right femur are obtained and compared with 04/17/2025. Left shoulder: There is no fracture. There is mild acromioclavicular and glenohumeral osteoarthritis. Unchanged superior migration of the humeral head. Soft tissues are normal. Right femur: There is no fracture. No focal osseous lesion. Mild to moderate right hip osteoarthritis. Alignment and soft tissues are normal. Procedure Note Rafael Khanna MD - 04/18/2025 XR SHOULDER LEFT 2 OR MORE VIEWS, XR FEMUR RIGHT 2 OR MORE VIEWS HISTORY: Left shoulder and right thigh pain. FINDINGS: 2 views of the left shoulder and 2 views of the right femur are obtained and compared with 04/17/2025. Left shoulder: There is no fracture. There is mild acromioclavicular and glenohumeral osteoarthritis. Unchanged superior migration of the humeral head. Soft tissues are normal. Right femur: There is no fracture. No focal osseous lesion. Mild to moderate right hip osteoarthritis. Alignment and soft tissues are normal. IMPRESSION: 1. Unchanged left glenohumeral osteoarthritis with superior migration indicating rotator cuff arthropathy. 2. No acute radiographic findings of the right femur. Electronically signed by: Rafael Khanna M.D. Heather Baez MANPOWER DEVELOPMENT MANAGER IMG XR PROCEDURES Final R esult * POCT glucose (04/18/2025 8:34 AM CDT) [facility] Glucose, POC 94 70 - 199 mg/dL Comment:Glu2: RN/MD Notified Glucose comment 1 Glu2: RN/MD Notified [facility] Blood 04/18/2025 8:34 AM CDT 04/18/2025 8:34 AM CDT Courtney Merchant MD LAB POCT ORDERABLES - DEVICE Final Result [facility] Department [place] [address] * eGFR (04/17/2025 9:25 PM CDT) [facility] eGFR >90 >=60 mL/min/1. 73 m2 Comment: Interpretive Data Reference Interval Normal >/= 90 mL/min/1.73m2 Mildly decreased* 60 - 89 mL/min/1.73m2 Mildly to moderately decreased 45 - 59 mL/min/1.73m2 Moderately to severely decreased 30 - 44 mL/min/1.73m2 Severely decreased 15 - 29 mL/min/1.73m2 Kidney Failure < 15 mL/min/1.73m2 *Relative to young adult level Estimated glomerular filtration rate is determined by the 2020 CKD-EPI equation recommended by the National Kidney Foundation (A Unifying Approach to GFR Estimation: Recommendations of the NKF-ASK Task Force on Reassessing the Inclusion of Race in Diagnosing Kidney Disease, JASN 202). The CKD-EPI equation should not be used for patients with unstable renal function and has not been validated in children and those over 70. Current interpretive data was last reviewed 2021. Blood 04/17/2025 9:25 PM CDT 04/17/2025 10:20 PM CDT us Heather Baez NP LAB BLOOD ORDERABLES Alyssa chao Result [facility] Department [place] [address] * (ABNORMAL) CBC without differential (04/17/2025 9:25 PM CDT) WBC 3.31(L) 3.80 - 9.90 K/cumm Hgb 8.1(L) 13.0 - 17.5 g/dL [facility] Hct 23.1(L) 38.9 - 50.3 % [facility] Plt 97(L) 150 - 400 K/cumm [facility] MPV 10.3 9.1 - 12.3 fL [facility] RBC 2.34(L) 4.30 - 5.80 M/cumm [facility] MCV 98.7(H) 81.3 - 96.4 fL [facility] MCH 34.6(H) 27.1 - 33.3 pg [facility] MCHC 35.1 32.3 - 35.7 g/dL [facility] RDW CV 19.5(H) 11.1 - 14.9 % [facility] RDW SD 67.4(H) 35.7 - 48.1 fL [facility] NRBC abs 0.00 0.00 - 0.01 K/cumm [facility] Blood 04/17/2025 9:25 PM CDT 04/17/2025 10:20 PM CDT Heather Baez MANPOWER DEVELOPMENT MANAGER LAB BLOOD ORDERABLES Alyssa l Result Performing Organization Address City/[facility] Co de Phone Number [facility] [place] [address] * Phosphorus (04/17/2025 9:25 PM CDT) [facility] Phosphorus, pl 2.8 2.3 - 4.5 mg/dL Blood 04/17/2025 9:25 PM CDT 04/17/2025 10:20 PM CDT Heather Baez MANPOWER DEVELOPMENT MANAGER LAB BLOOD ORDERABLES Alyssa l Result Performing Organization Address [facility] Co de Phone Number [facility] Department of [employer] [place] [address] * Magnesium (04/17/2025 9:25 PM CDT) [facility] Magnesium 1.7 1.4 - 2.5 mg/dL Blood 04/17/2025 9:25 PM CDT 04/17/2025 10:20 PM CDT Heather Baez MANPOWER DEVELOPMENT MANAGER LAB BLOOD ORDERABLES Alyssa l Result Performing Organization Address City/[facility] [place] [address] * (ABNORMAL) Basic metabolic panel (04/17/2025 9:25 PM CDT) [facility] Sodium 140 135 - 145 mmol/L Potassium, pl 4.0 3.3 - 4.9 mmol/L [facility] Chloride 103 97 - 110 mmol/L [facility] CO2 30 22 - 32 mmol/L [facility] Anion gap 7 2 - 15 mmol/L [facility] BUN 8 6 - 25 mg/dL [facility] Creatinine 0.75(L) 0.80 - 1.30 mg/dL [facility] Glucose 96 70 - 199 mg/dL [facility] Comment: Interpretive Data Fasting glucose >/= 126 mg/dl is diagnostic for diabetes. Fasting is defined as no caloric intake for at least 8 hours. Fasting glucose between 100 mg/dl to 125 mg/dl is diagnostic of prediabetes. In a patient with classic symptoms of hyperglycemia or hyperglycemic crisis, a random glucose >/= 200 mg/dl is diagnostic for diabetes. In the absence of unequivocal hyperglycemia, results should be confirmed by repeat testing. The classification and Diagnosis of Diabetes Diabetes Care 2021; 46: S19-S40. Current interpretive data was last revised 2022. Calcium 8.4(L) 8.5 - 10.3 mg/dL [facility] Blood 04/17/2025 9:25 PM CDT 04/17/2025 10:20 PM CDT Heather Baez MANPOWER DEVELOPMENT MANAGER LAB BLOOD ORDERABLES Alyssa l Result [facility] Department of [employer] [place] [address] * POCT glucose (04/17/2025 8:48 PM CDT) Glucose, POC 131 70 - 199 mg/dL Blood 04/17/2025 8:48 PM CDT 04/17/2025 8:48 PM CDT Courtney Merchant MD LAB POCT ORDERABLES - DEVICE Final Result [facility] Department of [employer] [place] [address] * POCT glucose (04/17/2025 6:16 PM CDT) Glucose, POC 116 70 - 199 mg/dL Comment:Glu2: RN/ Notified Glucose comment 1 Glu2: RN/ Notified [facility] Blood 04/17/2025 6:16 PM CDT 04/17/2025 6:16 PM CDT us Courtney Merchant MD LAB POCT ORDERABLES - DEVICE Final Result Performing Organization Address City/State/[facility] Co de Phone Number [facility] Department [place] [address] * XR Femur Right 1 View (04/17/2025 6:10 PM CDT) Anatomical Region Laterality Modality Lower Extremities, Thigh, Femur Right Computed Radiography 04/18/2025 6:53 AM CDT Impressions 04/18/2025 6:53 AM CDT 1. Mild superior subluxation of the left humeral head, as can be seen in the setting of chronic rotator cuff tendon tear. 2. Mild to moderate right hip osteoarthritis. Electronically signed by: Brooks Guallpa MD Narrative 04/18/2025 6:53 AM CDT EXAMINATION: XR SHOULDER LEFT 1 VIEW, XR FEMUR RIGHT 1 VIEW HISTORY: Left shoulder and right thigh pain FINDINGS: No comparison. No definite fracture of the left shoulder. Mild superior subluxation of the left humeral head. Mild left acromioclavicular osteoarthritis. Mild soft tissue swelling. Vascular calcifications. No evidence of fracture of the right femur. Mild to moderate right hip osteoarthritis. Meniscal chondrocalcinosis. Vascular calcifications. Procedure Note Brooks Guallpa MD - 04/18/2025 EXAMINATION: XR SHOULDER LEFT 1 VIEW, XR FEMUR RIGHT 1 VIEW HISTORY: Left shoulder and right thigh pain FINDINGS: No comparison. No definite fracture of the left shoulder. Mild superior subluxation of the left humeral head. Mild left acromioclavicular osteoarthritis. Mild soft tissue swelling. Vascular calcifications. No evidence of fracture of the right femur. Mild to moderate right hip osteoarthritis. Meniscal chondrocalcinosis. Vascular calcifications. IMPRESSION: 1. Mild superior subluxation of the left humeral head, as can be seen in the setting of chronic rotator cuff tendon tear. 2. Mild to moderate right hip osteoarthritis. Electronically signed by: Brooks Guallpa MD Courtney Merchant MD IMG XR PROCEDURES Alyssa l Result * XR Shoulder Left 1 View (04/17/2025 6:07 PM CDT) Anatomical Region Laterality Modality Upper Extremities, Shoulder Left Comp uted Radiography 04/18/2025 6:53 AM CDT Impressions 04/18/2025 6:53 AM CDT 1. Mild superior subluxation of the left humeral head, as can be seen in the setting of chronic rotator cuff tendon tear. 2. Mild to moderate right hip osteoarthritis. Electronically signed by: Brooks Guallpa MD Narrative 04/18/2025 6:53 AM CDT EXAMINATION: XR SHOULDER LEFT 1 VIEW, XR FEMUR RIGHT 1 VIEW HISTORY: Left shoulder and right thigh pain FINDINGS: No comparison. No definite fracture of the left shoulder. Mild superior subluxation of the left humeral head. Mild left acromioclavicular osteoarthritis. Mild soft tissue swelling. Vascular calcifications. No evidence of fracture of the right femur. Mild to moderate right hip osteoarthritis. Meniscal chondrocalcinosis. Vascular calcifications. Procedure Note Brooks Guallpa MD - 04/18/2025 EXAMINATION: XR SHOULDER LEFT 1 VIEW, XR FEMUR RIGHT 1 VIEW HISTORY: Left shoulder and right thigh pain FINDINGS: No comparison. No definite fracture of the left shoulder. Mild superior subluxation of the left humeral head. Mild left acromioclavicular osteoarthritis. Mild soft tissue swelling. Vascular calcifications. No evidence of fracture of the right femur. Mild to moderate right hip osteoarthritis. Meniscal chondrocalcinosis. Vascular calcifications. IMPRESSION: 1. Mild superior subluxation of the left humeral head, as can be seen in the setting of chronic rotator cuff tendon tear. 2. Mild to moderate right hip osteoarthritis. Electronically signed by: Brooks Guallpa MD Courtney Merchant MD IMG XR PROCEDURES Alyssa l Result * POCT glucose (04/17/2025 11:46 AM CDT) Glucose, POC 105 70 - 199 mg/dL Comment:Glu2: RN/MD Notified Glucose comment 1 Glu2: RN/MD Notified [facility] Blood 04/17/2025 11:4 6 AM CDT 04/17/2025 11:46 AM CDT Courtney Merchant MD LAB POCT ORDERABLES - DEVICE Final Result Performing Organization Address City/[facility] Co de Phone Number [facility] [employer] [place] [address] * POCT glucose (04/17/2025 9:17 AM CDT) Glucose, POC 113 70 - 199 mg/dL Blood 04/17/2025 9:17 AM CDT 04/17/2025 9:17 AM CDT Courtney Merchant MD LAB POCT ORDERABLES - DEVICE Final Result Performing Organization Address [facility] Co de Phone Number [facility] [employer] [place] [address] * POCT glucose (04/17/2025 8:56 AM CDT) Glucose, POC 84 70 - 199 mg/dL Blood 04/17/2025 8:56 AM CDT 04/17/2025 8:56 AM CDT Courtney Merchant MD LAB POCT ORDERABLES - DEVICE Final Result Performing Organization Address [facility] Co de Phone Number [facility] [employer] [place] [address] * POCT glucose (04/17/2025 8:28 AM CDT) Glucose, POC 84 70 - 199 mg/dL Blood 04/17/2025 8:28 AM CDT 04/17/2025 8:28 AM CDT Courtney Merchant MD LAB POCT ORDERABLES - DEVICE Final Result Performing Organization Address [facility] [facility] de Phone Number [facility] [employer] [place] [address] * POCT glucose (04/17/2025 8:04 AM CDT) Glucose, POC 78 70 - 199 mg/dL Blood 04/17/2025 8:04 AM CDT 04/17/2025 8:04 AM CDT Courtney Merchant MD LAB POCT ORDERABLES - DEVICE Final Result Performing Organization Address [facility] de Phone Number [facility] [employer] [place] [address] * (ABNORMAL) POCT glucose (04/17/2025 7:32 AM CDT) [facility] Glucose, POC 64(L) 70 - 199 mg/dL Blood 04/17/2025 7:32 AM CDT 04/17/2025 7:32 AM CDT Courtney Merchant MD LAB POCT ORDERABLES - DEVICE Final Result Performing Organization Address [facility] de Phone Number [facility] [employer] [place] [address] * eGFR (04/16/2025 9:55 PM CDT) [facility] eGFR >90 >=60 mL/min/1. 73 m2 Comment: Interpretive Data Reference Interval Normal >/= 90 mL/min/1.73m2 Mildly decreased* 60 - 89 mL/min/1.73m2 Mildly to moderately decreased 45 - 59 mL/min/1.73m2 Moderately to severely decreased 30 - 44 mL/min/1.73m2 Severely decreased 15 - 29 mL/min/1.73m2 Kidney Failure < 15 mL/min/1.73m2 *Relative to young adult level Estimated glomerular filtration rate is determined by the 2020 CKD-EPI equation recommended by the National Kidney Foundation (A Unifying Approach to GFR Estimation: Recommendations of the NKF-ASK Task Force on Reassessing the Inclusion of Race in Diagnosing Kidney Disease, JASN 202). The CKD-EPI equation should not be used for patients with unstable renal function and has not been validated in children and those over 70. Current interpretive data was last reviewed 2021. Blood 04/16/2025 9:55 PM CDT 04/16/2025 10:50 PM CDT us Heather Baez NP LAB BLOOD ORDERABLES Alyssa chao Result [facility] Department [place] [address] * (ABNORMAL) CBC without differential (04/16/2025 9:55 PM CDT) WBC 2.70(L) 3.80 - 9.90 K/cumm Hgb 7.9(L) 13.0 - 17.5 g/dL [facility] Hct 23.5(L) 38.9 - 50.3 % [facility] Plt 88(L) 150 - 400 K/cumm [facility] MPV 10.2 9.1 - 12.3 fL [facility] RBC 2.40(L) 4.30 - 5.80 M/cumm [facility] MCV 97.9(H) 81.3 - 96.4 fL [facility] MCH 32.9 27.1 - 33.3 pg [facility] MCHC 33.6 32.3 - 35.7 g/dL [facility] RDW CV 18.9(H) 11.1 - 14.9 % [facility] RDW SD 65.6(H) 35.7 - 48.1 fL [facility] NRBC abs 0.00 0.00 - 0.01 K/cumm [facility] Blood 04/16/2025 9:55 PM CDT 04/16/2025 10:50 PM CDT Heather Baez MANPOWER DEVELOPMENT MANAGER LAB BLOOD ORDERABLES Alyssa l Result Performing Organization Address [facility] Co de Phone Number [facility] [place] [address] * Phosphorus (04/16/2025 9:55 PM CDT) [facility] Phosphorus, pl 3.5 2.3 - 4.5 mg/dL Blood 04/16/2025 9:55 PM CDT 04/16/2025 10:50 PM CDT Heather Baez MANPOWER DEVELOPMENT MANAGER LAB BLOOD ORDERABLES Alyssa l Result Performing Organization Address [facility] Co de Phone Number [facility] [employer] [place] [address] * Magnesium (04/16/2025 9:55 PM CDT) [facility] Magnesium 1.8 1.4 - 2.5 mg/dL Blood 04/16/2025 9:55 PM CDT 04/16/2025 10:50 PM CDT Heather Baez MANPOWER DEVELOPMENT MANAGER LAB BLOOD ORDERABLES Alyssa l Result Performing Organization Address [facility] [place] [address] * Basic metabolic panel (04/16/2025 9:55 PM CDT) [facility] Sodium 140 135 - 145 mmol/L Potassium, pl 3.9 3.3 - 4.9 mmol/L [facility] Chloride 102 97 - 110 mmol/L [facility] CO2 30 22 - 32 mmol/L [facility] Anion gap 8 2 - 15 mmol/L [facility] BUN 9 6 - 25 mg/dL [facility] Creatinine 0.80 0.80 - 1.30 mg/dL [facility] Glucose 100 70 - 199 mg/dL [facility] Comment: Interpretive Data Fasting glucose >/= 126 mg/dl is diagnostic for diabetes. Fasting is defined as no caloric intake for at least 8 hours. Fasting glucose between 100 mg/dl to 125 mg/dl is diagnostic of prediabetes. In a patient with classic symptoms of hyperglycemia or hyperglycemic crisis, a random glucose >/= 200 mg/dl is diagnostic for diabetes. In the absence of unequivocal hyperglycemia, results should be confirmed by repeat testing. The classification and Diagnosis of Diabetes Diabetes Care 2021; 46: S19-S40. Current interpretive data was last revised 2022. Calcium 8.5 8.5 - 10.3 mg/dL [facility] Blood 04/16/2025 9:55 PM CDT 04/16/2025 10:50 PM CDT Heather Baez NP LAB BLOOD ORDERABLES Alyssa l Result [facility] Department of [employer] [place], [place] [id number] * POCT glucose (04/16/2025 9:19 PM CDT) Glucose, POC 112 70 - 199 mg/dL Blood 04/16/2025 9:19 PM CDT 04/16/2025 9:19 PM CDT Courtney Merchant MD LAB POCT ORDERABLES - DEVICE Final Result Performing Organization Address [facility]ZIP Co de Phone Number [facility] Department of [employer] [place] [address] * POCT glucose (04/16/2025 4:02 PM CDT) Glucose, POC 106 70 - 199 mg/dL Blood 04/16/2025 4:02 PM CDT 04/16/2025 4:02 PM CDT us Courtney Merchant MD LAB POCT ORDERABLES - DEVICE Final Result [facility] Department of Laboratories [place], [place] [id number] * US Carotids Duplex Bilateral (04/16/2025 1:40 PM CDT) Anatomical Region Laterality Modality Vascular Bilateral Ultrasound 04/16/2025 12:5 6 PM CDT Narrative 04/16/2025 2:02 PM CDT [facility] - Department of Vascular Surgery, Vascular Laboratory [address] [place] [id number] Carotid Duplex Ultrasound Report Patient Name: REX HAWTHORNE : 1955 (69y 10m) Study Date: 04/16/2025 12:56:57 PM Gender: M Tech: TT Location: [id number] Ref Provider: ANN LEIGH Quality: Adequate Order Provider: ANN LEIGH PROCEDURES: Carotid Report: Carotid duplex examination of the extracranial arteries was performed using 2D, color and spectral Doppler. INDICATIONS: syncopal workup - MEASUREMENTS: Right Value Units Left Value Units RT Prox CCA PSV 96 cm/sec LT Prox CCA PSV 132 cm/sec RT Prox CCA EDV 15 cm/sec LT Prox CCA EDV 17 cm/sec RT Distal CCA PSV 93 cm/sec LT Distal CCA PSV 64 cm/sec RT Distal CCA EDV 17 cm/sec LT Distal CCA EDV 14 cm/sec RT Prox ICA PSV 80 cm/sec LT Prox ICA PSV 92 cm/sec RT Prox ICA EDV 17 cm/sec LT Prox ICA EDV 28 cm/sec RT Mid ICA PSV 101 cm/sec LT Mid ICA PSV 86 cm/sec RT Mid ICA EDV 28 cm/sec LT Mid ICA EDV 27 cm/sec RT Distal ICA PSV 77 cm/sec LT Distal ICA PSV 119 cm/sec RT Distal ICA EDV 22 cm/sec LT Distal ICA EDV 36 cm/sec RT ECA Prx PSV 99 cm/sec LT ECA Prx PSV 94 cm/sec RT ICA/CCA 1.08 ratio LT ICA/CCA 1.85 ratio RT VERT PSV 59 cm/sec LT VERT PSV 69 cm/sec FINDINGS: Performing Lvn: Tyrel Stephenson RVT. Rt Common Carotid Artery: There is intimal thickening but no significant atherosclerotic plaque noted in the right common carotid artery. Rt Internal Carotid Artery: The plaque in the right internal carotid artery appears to be heterogeneous and smooth. Atherosclerotic changes of the right internal carotid artery without hemodynamically significant Doppler findings. <50% stenosis. Rt External Carotid Artery: Patent right external carotid artery with evidence of atherosclerotic disease present. Rt Vertebral Artery: The right vertebral artery is patent with antegrade flow. Lt Common Carotid Artery: The plaque in the left CCA appears to be heterogeneous and smooth. Atherosclerotic changes of the left common carotid artery with hemodynamically significant Doppler findings; elevated peak systolic velocity as above. Lt Internal Carotid Artery: The plaque in the left internal carotid artery appears to be heterogeneous and smooth. Atherosclerotic changes of the left internal carotid artery without hemodynamically significant Doppler findings. <50% stenosis. Lt External Carotid Artery: Patent left external carotid artery with evidence of atherosclerotic disease present. Lt Vertebral Artery: The left vertebral flow is retrograde consistent with ipsilateral subclavian artery stenosis or occlusion. CONCLUSIONS: 1. The right internal carotid artery disease is consistent with a less than 50% stenosis. 2. Normal, antegrade flow is noted in the right vertebral artery. 3. The left internal carotid artery disease is consistent with a less than 50% stenosis. 4. Retrograde flow is noted in the left vertebral artery. 5. No evidence of hemodynamically significant stenosis in the common carotid artery bilaterally. HISTORY: Not identified. PREVIOUS STUDIES: No previous studies for comparison. DISCLAIMER: The study images and the final report will be retained in the patient chart by the Vascular Laboratory for the legally required time period. This chart constitutes the legal record of any testing performed. ATTESTATION: I have reviewed and interpreted the pertinent images and measurements of this study. I attest to the conclusions in the final report that is provided above. Electronically Signed By: Can Mc MD FACS 04/16/2025 2:01:43 PM CDT Procedure Note Can Mc MD - 04/16/2025 [facility] - Department of Vascular Surgery,Vascular Laboratory [address] [place] [address] Carotid Duplex Ultrasound Report Patient Name: REX HAWTHORNE : 1955 (69y 10m) Study Date: 04/16/2025 12:56:57 PM Gender: M Tech: Location: [id number] Ref Provider: ANN LEIGH Quality: Adequate Order Provider: ANN LEIGH PROCEDURES: Carotid Report: Carotid duplex examination of the extracranial arterieswas performed using 2D, color and spectral Doppler. INDICATIONS: syncopal workup - MEASUREMENTS: Right Value Units Left Value Units RT Prox CCA PSV 96 cm/sec LT Prox CCA PSV 132 cm/sec RT Prox CCA EDV 15 cm/sec LT Prox CCA EDV 17 cm/sec RT Distal CCA PSV 93 cm/sec LT Distal CCA PSV 64 cm/sec RT Distal CCA EDV 17 cm/sec LT Distal CCA EDV 14 cm/sec RT Prox ICA PSV 80 cm/sec LT Prox ICA PSV 92 cm/sec RT Prox ICA EDV 17 cm/sec LT Prox ICA EDV 28 cm/sec RT Mid ICA PSV 101 cm/sec LT Mid ICA PSV 86 cm/sec RT Mid ICA EDV 28 cm/sec LT Mid ICA EDV 27 cm/sec RT Distal ICA PSV 77 cm/sec LT Distal ICA PSV 119 cm/sec RT Distal ICA EDV 22 cm/sec LT Distal ICA EDV 36 cm/sec RT ECA Prx PSV 99 cm/sec LT ECA Prx PSV 94 cm/sec RT ICA/CCA 1.08 ratio LT ICA/CCA 1.85 ratio RT VERT PSV 59 cm/sec LT VERT PSV 69 cm/sec FINDINGS: Performing Lvn: Tyrel Stephenson RVT. Rt Common Carotid Artery: There is intimal thickening but no significantatherosclerotic plaque noted in the right common carotid artery. Rt Internal Carotid Artery: The plaque in the right internal carotidartery appears to be heterogeneous and smooth. Atherosclerotic changes of the right internalcarotid artery without hemodynamically significant Doppler findings. <50% stenosis. Rt External Carotid Artery: Patent right external carotid artery withevidence of atherosclerotic disease present. Rt Vertebral Artery: The right vertebral artery is patent with antegradeflow. Lt Common Carotid Artery: The plaque in the left CCA appears to beheterogeneous and smooth. Atherosclerotic changes of the left common carotid artery withhemodynamically significant Doppler findings; elevated peak systolic velocity as above. Lt Internal Carotid Artery: The plaque in the left internal carotid arteryappears to be heterogeneous and smooth. Atherosclerotic changes of the left internalcarotid artery without hemodynamically significant Doppler findings. <50% stenosis. Lt External Carotid Artery: Patent left external carotid artery withevidence of atherosclerotic disease present. Lt Vertebral Artery: The left vertebral flow is retrograde consistent withipsilateral subclavian artery stenosis or occlusion. CONCLUSIONS: 1. The right internal carotid artery disease is consistent with a lessthan 50% stenosis. 2. Normal, antegrade flow is noted in the right vertebral artery. 3. The left internal carotid artery disease is consistent with a less than50% stenosis. 4. Retrograde flow is noted in the left vertebral artery. 5. No evidence of hemodynamically significant stenosis in the commoncarotid artery bilaterally. HISTORY: Not identified. PREVIOUS STUDIES: No previous studies for comparison. DISCLAIMER: The study images and the final report will be retained in the patientchart by the Vascular Laboratory for the legally required time period. This chartconstitutes the legal record of any testing performed. ATTESTATION: I have reviewed and interpreted the pertinent images and measurements ofthis study. I attest to the conclusions in the final report that is provided above. Electronically Signed By: Can Mc MD [facility] 04/16/2025 2:01:43 PM CDT Result [facility] Ann Leigh NP IMG US PROCEDURES Final Re sult * Blood gas, venous (04/16/2025 12:07 PM CDT) pH, Venous 7.42 7.32 - 7.43 PCO2, Venous 46 40 - 50 mmHg [facility] PO2, Venous 66 mmHg [facility] Comment: Interpretive Data No Reference Range Established Current Interpretive Data was last revised on 2017. HCO3 Venous, Calculated 30 20 - 30 mmol/L [facility] BE, venous 4 mmol/L [facility] Comment: Interpretive Data No Reference Range Established Current Interpretive Data was last revised on 2017. Blood 04/16/2025 12:0 7 PM CDT 04/16/2025 12:21 PM CDT Ann Leigh NP LAB BLOOD ORDERABLES Final Result Performing Organization Address [facility] Co de Phone Number [facility] Department [place] [address] * POCT glucose (04/16/2025 11:27 AM CDT) Glucose, POC 119 70 - 199 mg/dL Blood 04/16/2025 11:2 7 AM CDT 04/16/2025 11:27 AM CDT Courtney Merchant MD LAB POCT ORDERABLES - DEVICE Final Result Performing Organization Address [facility] Co de Phone Number [facility] Department [place] [address] * POCT glucose (04/16/2025 7:32 AM CDT) Glucose, POC 89 70 - 199 mg/dL Blood 04/16/2025 7:32 AM CDT 04/16/2025 7:32 AM CDT Courtney Merchant MD LAB POCT ORDERABLES - DEVICE Final Result Performing Organization Address [facility] Co de Phone Number [facility] Department [place] [address] * eGFR (04/15/2025 9:18 PM CDT) eGFR >90 >=60 mL/min/1. 73 m2 Comment: Interpretive Data Reference Interval Normal >/= 90 mL/min/1.73m2 Mildly decreased* 60 - 89 mL/min/1.73m2 Mildly to moderately decreased 45 - 59 mL/min/1.73m2 Moderately to severely decreased 30 - 44 mL/min/1.73m2 Severely decreased 15 - 29 mL/min/1.73m2 Kidney Failure < 15 mL/min/1.73m2 *Relative to young adult level Estimated glomerular filtration rate is determined by the 2020 CKD-EPI equation recommended by the National Kidney Foundation (A Unifying Approach to GFR Estimation: Recommendations of the NKF-ASK Task Force on Reassessing the Inclusion of Race in Diagnosing Kidney Disease, JASN 2020). The CKD-EPI equation should not be used for patients with unstable renal function and has not been validated in children and those over 70. Current interpretive data was last reviewed 2021. Blood 04/15/2025 9:18 PM CDT 04/15/2025 9:32 PM CDT Heather Baez NP LAB BLOOD ORDERABLES Alyssa l Result [facility] Department [place] [address] * (ABNORMAL) CBC without differential (04/15/2025 9:18 PM CDT) WBC 2.52(L) 3.80 - 9.90 K/cumm Hgb 8.4(L) 13.0 - 17.5 g/dL [facility] Hct 24.8(L) 38.9 - 50.3 % [facility] Plt 78(L) 150 - 400 K/cumm [facility] MPV 9.8 9.1 - 12.3 fL [facility] RBC 2.54(L) 4.30 - 5.80 M/cumm [facility] MCV 97.6(H) 81.3 - 96.4 fL [facility] MCH 33.1 27.1 - 33.3 pg [facility] MCHC 33.9 32.3 - 35.7 g/dL [facility] RDW CV 19.0(H) 11.1 - 14.9 % [facility] RDW SD 66.5(H) 35.7 - 48.1 fL [facility] NRBC abs 0.00 0.00 - 0.01 K/cumm [facility] Blood 04/15/2025 9:18 PM CDT 04/15/2025 9:33 PM CDT Heather Baez MANPOWER DEVELOPMENT MANAGER LAB BLOOD ORDERABLES Alyssa l Result Performing Organization Address [facility] Co de Phone Number [facility] [employer] [place] [address] * Phosphorus (04/15/2025 9:18 PM CDT) [facility] Phosphorus, pl 2.3 2.3 - 4.5 mg/dL Blood 04/15/2025 9:18 PM CDT 04/15/2025 9:32 PM CDT Heather Baez MANPOWER DEVELOPMENT MANAGER LAB BLOOD ORDERABLES Alyssa l Result Performing Organization Address [facility] Co de Phone Number [facility] [place] [address] * Magnesium (04/15/2025 9:18 PM CDT) [facility] Magnesium 1.5 1.4 - 2.5 mg/dL Blood 04/15/2025 9:18 PM CDT 04/15/2025 9:32 PM CDT Heather Baez MANPOWER DEVELOPMENT MANAGER LAB BLOOD ORDERABLES Alyssa l Result Performing Organization Address [facility] Co de Phone Number [facility] [place] [address] * (ABNORMAL) Basic metabolic panel (04/15/2025 9:18 PM CDT) [facility] Sodium 141 135 - 145 mmol/L Potassium, pl 3.8 3.3 - 4.9 mmol/L [facility] Chloride 105 97 - 110 mmol/L [facility] CO2 29 22 - 32 mmol/L [facility] Anion gap 7 2 - 15 mmol/L [facility] BUN 7 6 - 25 mg/dL [facility] Creatinine 0.79(L) 0.80 - 1.30 mg/dL [facility] Glucose 99 70 - 199 mg/dL [facility] Comment: Interpretive Data Fasting glucose >/= 126 mg/dl is diagnostic for diabetes. Fasting is defined as no caloric intake for at least 8 hours. Fasting glucose between 100 mg/dl to 125 mg/dl is diagnostic of prediabetes. In a patient with classic symptoms of hyperglycemia or hyperglycemic crisis, a random glucose >/= 200 mg/dl is diagnostic for diabetes. In the absence of unequivocal hyperglycemia, results should be confirmed by repeat testing. The classification and Diagnosis of Diabetes Diabetes Care 2021; 46: S19-S40. Current interpretive data was last revised 2022. Calcium 8.6 8.5 - 10.3 mg/dL [facility] Blood 04/15/2025 9:18 PM CDT 04/15/2025 9:32 PM CDT Heather Baez NP LAB BLOOD ORDERABLES Alyssa l Result Performing Organization Address [facility]ZIP Co de Phone Number [facility] Department [place] [address] * POCT glucose (04/15/2025 9:17 PM CDT) [facility] Glucose, POC 108 70 - 199 mg/dL Blood 04/15/2025 9:17 PM CDT 04/15/2025 9:17 PM CDT Courtney Merchant MD LAB POCT ORDERABLES - DEVICE Final Result Performing Organization Address [facility]ZIP Co de Phone Number [facility] Department [place] [address] * ECG 12 lead (04/15/2025 8:41 PM CDT) Ventricular Rate EKG/Min 114 BPM [facility] Atrial Rate 141 BPM [facility] NM-Interval (MSEC) 248 ms [facility] QRS-Interval (MSEC) 72 ms [facility] QT-Interval (MSEC) 284 ms [facility] QTc 391 ms [facility] P Kite 73 degrees [facility] R Kite 60 degrees [facility] T Kite 71 degrees [facility] Diagnosis Sinus tachycardia with 1st degree A-V block with Premature atrial complexes Low voltage QRS Borderline ECG When compared with ECG of 13-APR-2025 09:26, NM interval has increased Confirmed by CHUY ARNDT M.D ([id number]) on 04/17/2025 11:33:42 AM [facility] 04/15/2025 8:41 PM CDT 04/17/2025 11:33 AM CDT us Alejandra Conti MD ECG ORDERABLES Final Resu lt [facility] * eGFR (04/14/2025 8:37 PM CDT) eGFR >90 >=60 mL/min/1. 73 m2 Comment: Interpretive Data Reference Interval Normal >/= 90 mL/min/1.73m2 Mildly decreased* 60 - 89 mL/min/1.73m2 Mildly to moderately decreased 45 - 59 mL/min/1.73m2 Moderately to severely decreased 30 - 44 mL/min/1.73m2 Severely decreased 15 - 29 mL/min/1.73m2 Kidney Failure < 15 mL/min/1.73m2 *Relative to young adult level Estimated glomerular filtration rate is determined by the 2020 CKD-EPI equation recommended by the National Kidney Foundation (A Unifying Approach to GFR Estimation: Recommendations of the NKF-ASK Task Force on Reassessing the Inclusion of Race in Diagnosing Kidney Disease, JASN 2020). The CKD-EPI equation should not be used for patients with unstable renal function and has not been validated in children and those over 70. Current interpretive data was last reviewed 2021. Blood 04/14/2025 8:37 PM CDT 04/14/2025 8:49 PM CDT us Heather Baez NP LAB BLOOD ORDERABLES Alyssa l Result [facility] Department [place] [address] * (ABNORMAL) CBC without differential (04/14/2025 8:37 PM CDT) [facility] WBC 2.87(L) 3.80 - 9.90 K/cumm Hgb 8.0(L) 13.0 - 17.5 g/dL [facility] Hct 23.0(L) 38.9 - 50.3 % [facility] Plt 79(L) 150 - 400 K/cumm [facility] MPV 10.5 9.1 - 12.3 fL [facility] RBC 2.41(L) 4.30 - 5.80 M/cumm [facility] MCV 95.4 81.3 - 96.4 fL [facility] MCH 33.2 27.1 - 33.3 pg [facility] MCHC 34.8 32.3 - 35.7 g/dL [facility] RDW CV 19.1(H) 11.1 - 14.9 % [facility] RDW SD 65.7(H) 35.7 - 48.1 fL [facility] NRBC abs 0.00 0.00 - 0.01 K/cumm [facility] Blood 04/14/2025 8:37 PM CDT 04/14/2025 8:49 PM CDT Heather Baez NP LAB BLOOD ORDERABLES Alyssa l Result Performing Organization Address [facility] Co de Phone Number [facility] Department [place] [address] * (ABNORMAL) Phosphorus (04/14/2025 8:37 PM CDT) [facility] Phosphorus, pl 2.2(L) 2.3 - 4.5 mg/dL Blood 04/14/2025 8:37 PM CDT 04/14/2025 8:49 PM CDT Heather Baez NP LAB BLOOD ORDERABLES Alyssa l Result Performing Organization Address [facility]/ZIP Co de Phone Number [facility] Department [place] [address] * Magnesium (04/14/2025 8:37 PM CDT) Pathologist [facility] Magnesium 1.4 1.4 - 2.5 mg/dL Blood 04/14/2025 8:37 PM CDT 04/14/2025 8:49 PM CDT Heather Baez NP LAB BLOOD ORDERABLES Alyssa chao Result [facility] Department [place] [address] * (ABNORMAL) Basic metabolic panel (04/14/2025 8:37 PM CDT) [facility] Sodium 139 135 - 145 mmol/L Potassium, pl 4.2 3.3 - 4.9 mmol/L [facility] Comment:Hemolyzed; Potassium value may be falsely elevated by as much as 0.3-0.5 mmol/L. Suggest redraw and reanalysis. Chloride 104 97 - 110 mmol/L [facility] CO2 28 22 - 32 mmol/L [facility] Anion gap 7 2 - 15 mmol/L [facility] BUN 7 6 - 25 mg/dL [facility] Creatinine 0.79(L) 0.80 - 1.30 mg/dL [facility] Glucose 114 70 - 199 mg/dL [facility] Comment: Interpretive Data Fasting glucose >/= 126 mg/dl is diagnostic for diabetes. Fasting is defined as no caloric intake for at least 8 hours. Fasting glucose between 100 mg/dl to 125 mg/dl is diagnostic of prediabetes. In a patient with classic symptoms of hyperglycemia or hyperglycemic crisis, a random glucose >/= 200 mg/dl is diagnostic for diabetes. In the absence of unequivocal hyperglycemia, results should be confirmed by repeat testing. The classification and Diagnosis of Diabetes Diabetes Care 202; 46: S19-S40. Current interpretive data was last revised 2022. Calcium 8.7 8.5 - 10.3 mg/dL [facility] Blood 04/14/2025 8:37 PM CDT 04/14/2025 8:49 PM CDT Heather Baez NP LAB BLOOD ORDERABLES Alyssa chao Result Performing Organization Address [facility]/ZIP Co de Phone Number [facility] Department [place] [address] * (ABNORMAL) CBC without differential (04/14/2025 3:27 AM CDT) [facility] WBC 3.55(L) 3.80 - 9.90 K/cumm Hgb 7.6(L) 13.0 - 17.5 g/dL [facility] Hct 21.9(L) 38.9 - 50.3 % [facility] Plt 56(L) 150 - 400 K/cumm [facility] MPV 9.8 9.1 - 12.3 fL [facility] RBC 2.33(L) 4.30 - 5.80 M/cumm [facility] MCV 94.0 81.3 - 96.4 fL [facility] MCH 32.6 27.1 - 33.3 pg [facility] MCHC 34.7 32.3 - 35.7 g/dL [facility] RDW CV 18.4(H) 11.1 - 14.9 % [facility] RDW SD 62.6(H) 35.7 - 48.1 fL [facility] NRBC abs 0.00 0.00 - 0.01 K/cumm [facility] Blood 04/14/2025 3:27 AM CDT 04/14/2025 3:36 AM CDT Narrative [facility] - 04/14/2025 3:44 AM CDT 1 hour after transfusion of red blood cells is complete us Romeo Oropeza MD LAB BLOOD ORDERABLES Alyssa l Result Performing Organization Address [facility]/ZIP Co de Phone Number [facility] Department [place] [address] * Transfuse RBC (04/14/2025 2:18 AM CDT) Blood Courtney Merchant MD BLOOD TRANSFUSION ORDBartolo DOLAN Edited Result - Final Performing Organization Address [facility] Co de Phone Number [facility] [place] [address] * Lactate (04/13/2025 10:45 PM CDT) Lactate 0.8 0.7 - 2.0 mmol/L Blood 04/13/2025 10:4 5 PM CDT 04/13/2025 11:12 PM CDT Courtney Merchant MD LAB BLOOD ORDERABLES F inal Result Performing Organization Address [facility] de Phone Number [facility] [place] [address] * (ABNORMAL) Blood gas, venous (04/13/2025 10:45 PM CDT) pH, Venous 7.34 7.32 - 7.43 PCO2, Venous 54(H) 40 - 50 mmHg [facility] PO2, Venous 38 mmHg [facility] Comment: Interpretive Data No Reference Range Established Current Interpretive Data was last revised on 2017. HCO3 Venous, Calculated 30 20 - 30 mmol/L [facility] BE, venous 3 mmol/L [facility] Comment: Interpretive Data No Reference Range Established Current Interpretive Data was last revised on 2017. Blood 04/13/2025 10:4 5 PM CDT 04/13/2025 11:00 PM CDT Courtney Merchant MD LAB BLOOD ORDERABLES F inal Result Performing Organization Address [facility] Co de Phone Number [facility] [place] [address] * Prepare RBC: 1 Units (04/13/2025 10:01 PM CDT) Product code [id number] Unit Number [id number] [facility] Product Blood Type APOS [facility] Dispense Status PRESUMED TRANSFUSED [facility] Blood 04/13/2025 10:0 1 PM CDT 04/13/2025 10:00 PM CDT Narrative [facility] - 04/14/2025 4:00 PM CDT Are special requirements needed? (All products are leukoreduced and CMV- safe)- >No Date required:-[id number] LRRBC # of [id number] Reasons:-Hgb <7 g/dL} Courtney Merchant MD BLOOD BANK PRODUCT ORD ERABLES Final Result Performing Organization Address [facility] Co de Phone Number [facility] Department of [employer] [place] [address] * (ABNORMAL) Hemoglobin and hematocrit (04/13/2025 9:20 PM CDT) Hgb 6.4(C) 13.0 - 17.5 g/dL Comment:Critical value sevilla d within last 72 hrs Hct 18.0(L) 38.9 - 50.3 % [facility] Blood 04/13/2025 9:20 PM CDT 04/13/2025 9:35 PM CDT Angeli Cloud MD LAB BLOOD ORDERABLES Final Res ult [facility] of [employer] [place] [address] * Type and screen (04/13/2025 9:20 PM CDT) Kareen, indirect Negative ABO Rh AB Positive [facility] Blood 04/13/2025 9:20 PM CDT 04/13/2025 9:29 PM CDT Narrative [facility] - 04/13/2025 10:37 PM CDT Has the patient had Daratumumab or Isatuximab in the past 6 months?->Unknown Angeli Cloud MD LAB BLOOD BANK TEST ORDERABLES Final Result Performing Organization Address [facility] Co de Phone Number [facility] [place] [address] * eGFR (04/13/2025 8:36 PM CDT) eGFR 88 >=60 mL/min/1. 73 m2 Comment: Interpretive Data Reference Interval Normal >/= 90 mL/min/1.73m2 Mildly decreased* 60 - 89 mL/min/1.73m2 Mildly to moderately decreased 45 - 59 mL/min/1.73m2 Moderately to severely decreased 30 - 44 mL/min/1.73m2 Severely decreased 15 - 29 mL/min/1.73m2 Kidney Failure < 15 mL/min/1.73m2 *Relative to young adult level Estimated glomerular filtration rate is determined by the 2020 CKD-EPI equation recommended by the National Kidney Foundation (A Unifying Approach to GFR Estimation: Recommendations of the NKF-ASK Task Force on Reassessing the Inclusion of Race in Diagnosing Kidney Disease, JASN 2020). The CKD-EPI equation should not be used for patients with unstable renal function and has not been validated in children and those over 70. Current interpretive data was last reviewed 2021. Blood 04/13/2025 8:36 PM CDT 04/13/2025 8:48 PM CDT Heather Baez MANPOWER DEVELOPMENT MANAGER LAB BLOOD ORDERABLES Alyssa l Result Performing Organization Address City/[facility]/ZIP Co de Phone Number [facility] Department [place] [address] * (ABNORMAL) CBC without differential (04/13/2025 8:36 PM CDT) WBC 3.91 3.80 - 9.90 K/cumm Hgb 6.0(C) 13.0 - 17.5 g/dL [facility] Comment:This result has been called to Flavio Kwok(RN) by [email or web address] on 04/13/2025 21:03:16, and has been read back. Hct 16.8(L) 38.9 - 50.3 % [facility] Plt 59(L) 150 - 400 K/cumm [facility] MPV 9.4 9.1 - 12.3 fL [facility] RBC 1.74(L) 4.30 - 5.80 M/cumm [facility] MCV 96.6(H) 81.3 - 96.4 fL [facility] MCH 34.5(H) 27.1 - 33.3 pg [facility] MCHC 35.7 32.3 - 35.7 g/dL [facility] RDW CV 18.0(H) 11.1 - 14.9 % [facility] RDW SD 63.2(H) 35.7 - 48.1 fL [facility] NRBC abs 0.00 0.00 - 0.01 K/cumm [facility] Blood 04/13/2025 8:36 PM CDT 04/13/2025 8:48 PM CDT Heather Baez NP LAB BLOOD ORDERABLES Alyssa l Result Performing Organization Address [facility] Co de Phone Number [facility] of [employer] [place] [address] * Phosphorus (04/13/2025 8:36 PM CDT) Pathologist [facility] [place] Phosphorus, pl 2.3 2.3 - 4.5 mg/dL Blood 04/13/2025 8:36 PM CDT 04/13/2025 8:48 PM CDT Heather Baez NP LAB BLOOD ORDERABLES Alyssa l Result [facility] of [employer] [place] [address] * Magnesium (04/13/2025 8:36 PM CDT) Pathologist [facility] Magnesium 1.7 1.4 - 2.5 mg/dL Blood 04/13/2025 8:36 PM CDT 04/13/2025 8:48 PM CDT Heather Baez NP LAB BLOOD ORDERABLES Alyssa l Result Performing Organization Address City/State/[facility] Co de Phone Number [facility] Department [place] [address] * Basic metabolic panel (04/13/2025 8:36 PM CDT) Pathologist [facility] Sodium 137 135 - 145 mmol/L Potassium, pl 4.2 3.3 - 4.9 mmol/L [facility] Chloride 104 97 - 110 mmol/L [facility] CO2 29 22 - 32 mmol/L [facility] Anion gap 4 2 - 15 mmol/L [facility] BUN 10 6 - 25 mg/dL [facility] Creatinine 0.94 0.80 - 1.30 mg/dL [facility] Glucose 113 70 - 199 mg/dL [facility] Comment: Interpretive Data Fasting glucose >/= 126 mg/dl is diagnostic for diabetes. Fasting is defined as no caloric intake for at least 8 hours. Fasting glucose between 100 mg/dl to 125 mg/dl is diagnostic of prediabetes. In a patient with classic symptoms of hyperglycemia or hyperglycemic crisis, a random glucose >/= 200 mg/dl is diagnostic for diabetes. In the absence of unequivocal hyperglycemia, results should be confirmed by repeat testing. The classification and Diagnosis of Diabetes Diabetes Care 2021; 46: S19-S40. Current interpretive data was last revised 2022. Calcium 8.8 8.5 - 10.3 mg/dL [facility] Blood 04/13/2025 8:36 PM CDT 04/13/2025 8:48 PM CDT Heather Baez NP LAB BLOOD ORDERABLES Alyssa l Result Performing Organization Address City/[facility] de Phone Number [facility] Department [place] [address] * (ABNORMAL) Blood gas, venous (04/13/2025 2:58 PM CDT) pH, Venous 7.32 7.32 - 7.43 PCO2, Venous 57(H) 40 - 50 mmHg [facility] PO2, Venous 51 mmHg [facility] Comment: Interpretive Data No Reference Range Established Current Interpretive Data was last revised on 2017. HCO3 Venous, Calculated 30 20 - 30 mmol/L [facility] BE, venous 3 mmol/L [facility] Comment: Interpretive Data No Reference Range Established Current Interpretive Data was last revised on 2017. Blood 04/13/2025 2:58 PM CDT 04/13/2025 4:01 PM CDT Courtney Merchant MD LAB BLOOD ORDERABLES F inal Result Performing Organization Address [facility] de Phone Number [facility] [place] [address] * ECG 12 lead (04/13/2025 9:26 AM CDT) Ventricular Rate EKG/Min 130 BPM [facility] Atrial Rate 130 BPM [facility] NM-Interval (MSEC) 194 ms [facility] QRS-Interval (MSEC) 70 ms [facility] QT-Interval (MSEC) 282 ms [facility] QTc 415 ms [facility] P Kite 88 degrees [facility] R Kite 79 degrees [facility] T Kite 75 degrees [facility] Diagnosis Sinus tachycardia with Premature supraventricular complexes Low voltage QRS Borderline ECG When compared with ECG of 11-APR-2025 23:07, No significant change was found Confirmed by CHUY ARNDT M.D ([id number]) on 04/15/2025 12:21:51 PM [facility] 04/13/2025 9:26 AM CDT 04/15/2025 12:21 PM CDT us Alejandra Conti MD ECG ORDERABLES Final Resu lt [facility] * (ABNORMAL) Blood gas, venous (04/13/2025 5:12 AM CDT) pH, Venous 7.31(L) 7.32 - 7.43 PCO2, Venous 56(H) 40 - 50 mmHg [facility] PO2, Venous 46 mmHg [facility] Comment: Interpretive Data No Reference Range Established Current Interpretive Data was last revised on 2017. HCO3 Venous, Calculated 29 20 - 30 mmol/L [facility] BE, venous 1 mmol/L [facility] Comment: Interpretive Data No Reference Range Established Current Interpretive Data was last revised on 2017. Blood 04/13/2025 5:12 AM CDT 04/13/2025 5:18 AM CDT us Romeo Oropeza MD LAB BLOOD ORDERABLES Alyssa l Result Performing Organization Address City/[facility]/ZIP Co de Phone Number [facility] Department [place] [address] * eGFR (04/12/2025 8:41 PM CDT) eGFR 74 >=60 mL/min/1. 73 m2 Comment: Interpretive Data Reference Interval Normal >/= 90 mL/min/1.73m2 Mildly decreased* 60 - 89 mL/min/1.73m2 Mildly to moderately decreased 45 - 59 mL/min/1.73m2 Moderately to severely decreased 30 - 44 mL/min/1.73m2 Severely decreased 15 - 29 mL/min/1.73m2 Kidney Failure < 15 mL/min/1.73m2 *Relative to young adult level Estimated glomerular filtration rate is determined by the 2020 CKD-EPI equation recommended by the National Kidney Foundation (A Unifying Approach to GFR Estimation: Recommendations of the NKF-ASK Task Force on Reassessing the Inclusion of Race in Diagnosing Kidney Disease, JASN 2020). The CKD-EPI equation should not be used for patients with unstable renal function and has not been validated in children and those over 70. Current interpretive data was last reviewed 2021. Blood 04/12/2025 8:41 PM CDT 04/12/2025 8:53 PM CDT Heather Baez MANPOWER DEVELOPMENT MANAGER LAB BLOOD ORDERABLES Alyssa l Result Performing Organization Address [facility]/ZIP Co de Phone Number [facility] Department [employer] [place] [address] * (ABNORMAL) CBC without differential (04/12/2025 8:41 PM CDT) WBC 4.39 3.80 - 9.90 K/cumm Hgb 8.2(L) 13.0 - 17.5 g/dL [facility] Hct 23.0(L) 38.9 - 50.3 % [facility] Plt 59(L) 150 - 400 K/cumm [facility] MPV 10.1 9.1 - 12.3 fL [facility] RBC 2.43(L) 4.30 - 5.80 M/cumm [facility] MCV 94.7 81.3 - 96.4 fL [facility] MCH 33.7(H) 27.1 - 33.3 pg [facility] MCHC 35.7 32.3 - 35.7 g/dL [facility] RDW CV 18.7(H) 11.1 - 14.9 % [facility] RDW SD 65.2(H) 35.7 - 48.1 fL [facility] NRBC abs 0.00 0.00 - 0.01 K/cumm [facility] Blood 04/12/2025 8:41 PM CDT 04/12/2025 8:54 PM CDT Heather Baez NP LAB BLOOD ORDERABLES Alyssa l Result Performing Organization Address [facility]/ZIP Co de Phone Number [facility] [place] [address] * Phosphorus (04/12/2025 8:41 PM CDT) [facility] Phosphorus, pl 2.9 2.3 - 4.5 mg/dL Blood 04/12/2025 8:41 PM CDT 04/12/2025 8:53 PM CDT Heather Baez MANPOWER DEVELOPMENT MANAGER LAB BLOOD ORDERABLES Alyssa l Result Performing Organization Address City/[facility]/[place] [address] * Magnesium (04/12/2025 8:41 PM CDT) [facility] Magnesium 1.6 1.4 - 2.5 mg/dL Blood 04/12/2025 8:41 PM CDT 04/12/2025 8:53 PM CDT Heather Baez MANPOWER DEVELOPMENT MANAGER LAB BLOOD ORDERABLES Alyssa l Result Performing Organization Address City/[facility] [place] [address] * Basic metabolic panel (04/12/2025 8:41 PM CDT) [facility] Sodium 135 135 - 145 mmol/L Potassium, pl 4.5 3.3 - 4.9 mmol/L [facility] Chloride 103 97 - 110 mmol/L [facility] CO2 26 22 - 32 mmol/L [facility] Anion gap 6 2 - 15 mmol/L [facility] BUN 10 6 - 25 mg/dL [facility] Creatinine 1.09 0.80 - 1.30 mg/dL [facility] Glucose 137 70 - 199 mg/dL [facility] Comment: Interpretive Data Fasting glucose >/= 126 mg/dl is diagnostic for diabetes. Fasting is defined as no caloric intake for at least 8 hours. Fasting glucose between 100 mg/dl to 125 mg/dl is diagnostic of prediabetes. In a patient with classic symptoms of hyperglycemia or hyperglycemic crisis, a random glucose >/= 200 mg/dl is diagnostic for diabetes. In the absence of unequivocal hyperglycemia, results should be confirmed by repeat testing. The classification and Diagnosis of Diabetes Diabetes Care 2021; 46: S19-S40. Current interpretive data was last revised 2022. Calcium 8.6 8.5 - 10.3 mg/dL [facility] Blood 04/12/2025 8:41 PM CDT 04/12/2025 8:53 PM CDT Heather Baez NP LAB BLOOD ORDERABLES Alyssa l Result Performing Organization Address [facility] Co de Phone Number [facility] Department [place] [address] * Blood gas, venous (04/12/2025 6:08 PM CDT) pH, Venous 7.33 7.32 - 7.43 PCO2, Venous 47 40 - 50 mmHg [facility] PO2, Venous 169 mmHg [facility] Comment: Interpretive Data No Reference Range Established Current Interpretive Data was last revised on 2017. HCO3 Venous, Calculated 26 20 - 30 mmol/L [facility] BE, venous See Comment [facility] Comment: Quantity not sufficient to retest. Interpretive Data No Reference Range Established Current Interpretive Data was last revised on 2017. Blood 04/12/2025 6:08 PM CDT 04/12/2025 6:16 PM CDT Romeo Oropeza MD LAB BLOOD ORDERABLES Alyssa l Result Performing Organization Address [facility] Co de Phone Number [facility] Department [place] [address] * POCT glucose (04/12/2025 4:01 PM CDT) Glucose, POC 140 70 - 199 mg/dL Blood 04/12/2025 4:01 PM CDT 04/12/2025 4:01 PM CDT us Romeo Oropeza MD LAB POCT ORDERABLES - DEV ICE Final Result Performing Organization Address [facility] de Phone Number [facility] [place] [address] * (ABNORMAL) Blood gas, venous (04/12/2025 3:58 PM CDT) pH, Venous 7.29(L) 7.32 - 7.43 PCO2, Venous 54(H) 40 - 50 mmHg [facility] PO2, Venous 53 mmHg [facility] Comment: Interpretive Data No Reference Range Established Current Interpretive Data was last revised on 2017. HCO3 Venous, Calculated 27 20 - 30 mmol/L [facility] BE, venous -1 mmol/L [facility] Comment: Interpretive Data No Reference Range Established Current Interpretive Data was last revised on 2017. Blood 04/12/2025 3:58 PM CDT 04/12/2025 4:09 PM CDT us Heather Baez NP LAB BLOOD ORDERABLES Alyssa l Result Performing Organization Address [facility] de Phone Number [facility] Department [place] [address] * (ABNORMAL) Blood gas, venous (04/12/2025 2:02 PM CDT) pH, Venous 7.27(L) 7.32 - 7.43 PCO2, Venous 57(H) 40 - 50 mmHg [facility] PO2, Venous 67 mmHg [facility] Comment: Interpretive Data No Reference Range Established Current Interpretive Data was last revised on 2017. HCO3 Venous, Calculated 27 20 - 30 mmol/L [facility] BE, venous -1 mmol/L [facility] Comment: Interpretive Data No Reference Range Established Current Interpretive Data was last revised on 2017. Blood 04/12/2025 2:02 PM CDT 04/12/2025 2:11 PM CDT Heather Baez NP LAB BLOOD ORDERABLES Alyssa l Result Performing Organization Address [facility] de Phone Number [facility] [place] [address] * (ABNORMAL) Blood gas, venous (04/12/2025 11:32 AM CDT) pH, Venous 7.28(L) 7.32 - 7.43 PCO2, Venous 57(H) 40 - 50 mmHg [facility] PO2, Venous 46 mmHg [facility] Comment: Interpretive Data No Reference Range Established Current Interpretive Data was last revised on 2017. HCO3 Venous, Calculated 28 20 - 30 mmol/L [facility] BE, venous 0 mmol/L [facility] Comment: Interpretive Data No Reference Range Established Current Interpretive Data was last revised on 2017. Blood 04/12/2025 11:3 2 AM CDT 04/12/2025 11:45 AM CDT Heather Baez NP LAB BLOOD ORDERABLES Alyssa l Result Performing Organization Address [facility] de Phone Number [facility] of [employer] [place] [address] * Transfuse RBC (04/12/2025 9:38 AM CDT) Blood Romeo Oropeza MD BLOOD TRANSFUSION ORDERAB LES Final Result Performing Organization Address [facility] Co de Phone Number [facility] Department [place] [address] * (ABNORMAL) CBC without differential (04/12/2025 8:05 AM CDT) WBC 6.57 3.80 - 9.90 K/cumm Hgb 7.9(L) 13.0 - 17.5 g/dL [facility] Hct 22.2(L) 38.9 - 50.3 % [facility] Plt 61(L) 150 - 400 K/cumm [facility] MPV 9.6 9.1 - 12.3 fL [facility] RBC 2.29(L) 4.30 - 5.80 M/cumm [facility] MCV 96.9(H) 81.3 - 96.4 fL [facility] Comment:MCV delta due to renée arent blood transfusion. MCH 34.5(H) 27.1 - 33.3 pg [facility] MCHC 35.6 32.3 - 35.7 g/dL [facility] RDW CV 17.9(H) 11.1 - 14.9 % [facility] RDW SD 61.9(H) 35.7 - 48.1 fL [facility] NRBC abs 0.00 0.00 - 0.01 K/cumm [facility] Blood 04/12/2025 8:05 AM CDT 04/12/2025 8:17 AM CDT Narrative [facility] - 04/12/2025 8:28 AM CDT 1 hour after transfusion of red blood cells is complete Romeo Oropeza MD LAB BLOOD ORDERABLES Alyssa l Result [facility] Department [place] [address] * HIV 1/2 Antibody plus p24 Antigen Blood (04/12/2025 4:30 AM CDT) HIV 1/2 ab + p24 ag Nonreactive Nonreactive Comment:Nonreactive for HIV- 1 antigen and HIV-1/HIV-2 antibodies. No laboratory evidence of HIV infection. If acute HIV infection is suspected, consider testing for HIV-1 RNA. Current interpretive data was last revised on 22. Blood 04/12/2025 4:30 AM CDT 04/12/2025 4:47 AM CDT Romeo Oropeza MD LAB MICROBIOLOGY - GENERA L ORDERABLES Final Result Performing Organization Address [facility] Co de Phone Number [facility] [employer] [place] [address] * Hepatitis C antibody Blood (04/12/2025 4:30 AM CDT) Hep C Ab Nonreactive Nonreactive Comment:Antibodies to HCV no t detected. Does NOT exclude the possibility of recent exposure to HCV. Current interpretive data was last revised on 22 Blood 04/12/2025 4:30 AM CDT 04/12/2025 4:47 AM CDT us Romeo Oropeza MD LAB MICROBIOLOGY - GENERA L ORDERABLES Final Result Performing Organization Address [facility] de Phone Number [facility] of [employer] [place] [address] * RPR Blood (04/12/2025 4:30 AM CDT) RPR Nonreactive Nonreactive Blood 04/12/2025 4:30 AM CDT 04/12/2025 4:47 AM CDT Romeo Oropeza MD LAB MICROBIOLOGY - GENERA L ORDERABLES Final Result Performing Organization Address [facility] Co de Phone Number PHYLLIS [facility] [employer] [place] [address] * Hepatitis B Surface Antigen Blood (04/12/2025 4:30 AM CDT) HepBsAg Nonreactive Nonreactive Blood 04/12/2025 4:30 AM CDT 04/12/2025 4:47 AM CDT us Romeo Oropeza MD LAB MICROBIOLOGY - GENERA L ORDERABLES Final Result Performing Organization Address City/[facility]/ZIP Co de Phone Number [facility] [employer] [place] [address] * Prepare RBC: 1 Units (04/12/2025 4:17 AM CDT) [facility] Product code [id number] Unit Number [id number] [facility] Product Blood Type APOS [facility] Dispense Status PRESUMED TRANSFUSED [facility] Blood 04/12/2025 4:17 AM CDT 04/12/2025 4:17 AM CDT Narrative [facility] - 04/12/2025 8:01 PM CDT Other indication->6 point drop in Hgb since admission, in afib RVR Are special requirements needed? (All products are leukoreduced and CMV- safe)- >No Date required:-[id number] LRRBC # of [id number] Reasons:-Other (specify)} Romeo Oropeza MD BLOOD BANK PRODUCT ORDERA BLES Final Result Performing Organization Address [facility] de Phone Number [facility] [employer] [place] [address] * POCT glucose (04/11/2025 11:44 PM CDT) [facility] Glucose, POC 105 70 - 199 mg/dL Blood 04/11/2025 11:4 4 PM CDT 04/11/2025 11:44 PM CDT Romeo Oropeza MD LAB POCT ORDERABLES - DEV ICE Final Result Performing Organization Address [facility] [place] [address] * ECG 12 lead (04/11/2025 11:07 PM CDT) [facility] Ventricular Rate EKG/Min 128 BPM [facility] Atrial Rate 128 BPM [facility] NM-Interval (MSEC) 222 ms [facility] QRS-Interval (MSEC) 70 ms [facility] QT-Interval (MSEC) 260 ms [facility] QTc 379 ms [facility] P Kite 86 degrees [facility] R Kite 81 degrees [facility] T Kite 67 degrees [facility] Diagnosis Sinus tachycardia with 1st degree A-V block with Premature atrial complexes Low voltage QRS Borderline ECG When compared with ECG of 11-APR-2025 14:22, (unconfirmed) Sinus rhythm has replaced Atrial fibrillation Confirmed by CHUY ARNDT M.D ([id number]) on 04/12/2025 4:39:04 PM [facility] 04/11/2025 11:0 7 PM CDT 04/12/2025 4:39 PM CDT us Romeo Oropeza MD ECG ORDERABLES Final Res ult [facility] * POCT glucose (04/11/2025 8:25 PM CDT) Glucose, POC 98 70 - 199 mg/dL Blood 04/11/2025 8:25 PM CDT 04/11/2025 8:25 PM CDT us Romeo Oropeza MD LAB POCT ORDERABLES - DEV ICE Final Result [facility] Department [place] [address] * (ABNORMAL) eGFR (04/11/2025 7:45 PM CDT) eGFR 50(L) >=60 mL/min/1. 73 m2 Comment: Interpretive Data Reference Interval Normal >/= 90 mL/min/1.73m2 Mildly decreased* 60 - 89 mL/min/1.73m2 Mildly to moderately decreased 45 - 59 mL/min/1.73m2 Moderately to severely decreased 30 - 44 mL/min/1.73m2 Severely decreased 15 - 29 mL/min/1.73m2 Kidney Failure < 15 mL/min/1.73m2 *Relative to young adult level Estimated glomerular filtration rate is determined by the 2020 CKD-EPI equation recommended by the National Kidney Foundation (A Unifying Approach to GFR Estimation: Recommendations of the NKF-ASK Task Force on Reassessing the Inclusion of Race in Diagnosing Kidney Disease, JASN 2020). The CKD-EPI equation should not be used for patients with unstable renal function and has not been validated in children and those over 70. Current interpretive data was last reviewed 2021. Blood 04/11/2025 7:45 PM CDT 04/11/2025 8:27 PM CDT us Alejandra Conti MD LAB BLOOD ORDERABLES Final Result [facility] Department [place] [address] * (ABNORMAL) CBC without differential (04/11/2025 7:45 PM CDT) WBC 9.53 3.80 - 9.90 K/cumm Hgb 8.2(L) 13.0 - 17.5 g/dL [facility] Comment:Hemoglobin delta due to surgical procedure. Hct 22.9(L) 38.9 - 50.3 % [facility] Plt 81(L) 150 - 400 K/cumm [facility] MPV 10.0 9.1 - 12.3 fL [facility] RBC 2.22(L) 4.30 - 5.80 M/cumm [facility] MCV 103.2(H) 81.3 - 96.4 fL [facility] MCH 36.9(H) 27.1 - 33.3 pg [facility] MCHC 35.8(H) 32.3 - 35.7 g/dL [facility] RDW CV 13.5 11.1 - 14.9 % [facility] RDW SD 50.4(H) 35.7 - 48.1 fL [facility] NRBC abs 0.00 0.00 - 0.01 K/cumm [facility] Blood 04/11/2025 7:45 PM CDT 04/11/2025 8:13 PM CDT Alejandra Conti MD LAB BLOOD ORDERABLES Final Result Performing Organization Address [facility] Co de Phone Number [facility] [place] [address] * Phosphorus (04/11/2025 7:45 PM CDT) Phosphorus, pl 3.5 2.3 - 4.5 mg/dL Blood 04/11/2025 7:45 PM CDT 04/11/2025 8:15 PM CDT Result [facility] Alejandra Conti MD LAB BLOOD ORDERABLES Final Result Performing Organization Address [facility] de Phone Number [facility] [place] [address] * Magnesium (04/11/2025 7:45 PM CDT) Magnesium 1.5 1.4 - 2.5 mg/dL Blood 04/11/2025 7:45 PM CDT 04/11/2025 8:15 PM CDT Result [facility] Alejandra Conti MD LAB BLOOD ORDERABLES Final Result Performing Organization Address [facility] [place] [address] * Hemoglobin A1c (04/11/2025 7:45 PM CDT) Hgb A1C 5.1 4.0 - 5.6 % Estimated Average Glucose 100 mg/dL [facility] Comment: The ADA recommends reporting an estimated Average Glucose (eAG) with all Hemoglobin A1c results using the equation derived from a study of 507 normal and diabetic adults. Minority populations were underrepresented and children were not included. (Diabetes Care 2020; 43(S1): S66-S76). The eAG is not equivalent to a fasting glucose. Blood 04/11/2025 7:45 PM CDT 04/11/2025 8:13 PM CDT us Yvonne CHUA LAB BLOOD ORDERABLES Alyssa l Result Performing Organization Address [facility] Co de Phone Number [facility] [place] [address] * (ABNORMAL) Hepatic function panel (04/11/2025 7:45 PM CDT) Bilirubin, total 1.1 0.1 - 1.2 mg/dL Bilirubin, direct 0.5(H) 0.1 - 0.3 mg/dL [facility] Protein, pl 5.1(L) 6.5 - 8.5 g/dL [facility] Albumin 2.9(L) 3.5 - 5.0 g/dL [facility] Alk phos 65 40 - 130 Units/L [facility] ALT 16 7 - 55 Units/L [facility] AST 71(H) 10 - 50 Units/L [facility] Blood 04/11/2025 7:45 PM CDT 04/11/2025 8:15 PM CDT us Romeo Oropeza MD LAB BLOOD ORDERABLES Alyssa l Result Performing Organization Address [facility] Co de Phone Number [facility] [place] [address] * (ABNORMAL) Basic metabolic panel (04/11/2025 7:45 PM CDT) Sodium 129(L) 135 - 145 mmol/L Potassium, pl 5.0(H) 3.3 - 4.9 mmol/L [facility] Chloride 97 97 - 110 mmol/L [facility] CO2 25 22 - 32 mmol/L [facility] Anion gap 7 2 - 15 mmol/L [facility] BUN 12 6 - 25 mg/dL [facility] Creatinine 1.52(H) 0.80 - 1.30 mg/dL [facility] Glucose 74 70 - 199 mg/dL [facility] Comment: Interpretive Data Fasting glucose >/= 126 mg/dl is diagnostic for diabetes. Fasting is defined as no caloric intake for at least 8 hours. Fasting glucose between 100 mg/dl to 125 mg/dl is diagnostic of prediabetes. In a patient with classic symptoms of hyperglycemia or hyperglycemic crisis, a random glucose >/= 200 mg/dl is diagnostic for diabetes. In the absence of unequivocal hyperglycemia, results should be confirmed by repeat testing. The classification and Diagnosis of Diabetes Diabetes Care 2021; 46: S19-S40. Current interpretive data was last revised 2022. Calcium 9.2 8.5 - 10.3 mg/dL [facility] Blood 04/11/2025 7:45 PM CDT 04/11/2025 8:15 PM CDT Alejandra Conti MD LAB BLOOD ORDERABLES Final Result [facility] Department [place] [address] * POCT glucose (04/11/2025 7:15 PM CDT) [facility] Signature Glucose, POC 70 70 - 199 mg/dL Blood 04/11/2025 7:15 PM CDT 04/11/2025 7:15 PM CDT us Romeo Oropeza MD LAB POCT ORDERABLES - DEV ICE Final Result [facility] Department [place] [address] * NM CRITICAL CARE ILL/INJURED PATIENT INIT 30-74 MIN (04/11/2025 5:06 PM CDT) Narrative Alejandra Conti MD - 04/11/2025 5:06 PM CDT Alejandra Conti MD 04/11/2025 5:08 PM Critical Care Performed by: Alejandra Conti MD Authorized by: Pradeep Francisco MD Critical care provider statement: As reflected in the history, physical exam, orders, notes, and/or MDM, I was personally present while the patient was critically ill and provided critical care services for 50 minutes, excluding time involved in separately billable procedures. Critical care was necessary to treat or prevent imminent or life-threatening deterioration of the following condition(s): acute electrolyte derangement severe long-bone fracture Critical care was time spent by me providing the following: continuous telemetry, continuous pulse oximetry, interpretation of bedside monitors, imaging, and arterial/venous lab draws, serial bedside patient exams, serial laboratory checks and resuscitation with fluids Attempt at catheter placement for acute urinary retention active monitoring of intake/output status active repletion of electrolytes management of limb weight bearing status acute pain control I provided emergent necessary critical care medicine services to this patient. I ordered and reviewed test results and/or imaging studies. I spent time discussing the management of this critically ill patient with consultants and the medical staff. I spent time discussing the management and therapeutic options for this critically ill patient with the patient themselves or with the appropriate designated surrogate decision-maker. I spent time documenting in the medical record. us Pradeep Francisco MD IN CLINIC/BEDSIDE O RDERABLES Final Result * XR Femur Left 2 or More Views (04/11/2025 3:39 PM CDT) Anatomical Region Laterality Modality Lower Extremities, Thigh, Femur Left Computed Radiography 04/11/2025 3:40 PM CDT Impressions 04/11/2025 3:40 PM CDT 1. Interval reduced and nailed left intertrochanteric fracture. Electronically signed by: Giovani Flores MD Narrative 04/11/2025 3:40 PM CDT EXAMINATION: XR FEMUR LEFT 2 OR MORE VIEWS HISTORY: Fracture. FINDINGS: Comparison to 04/11/2025 at 5:58 AM. Interval reduced and nailed left femur intertrochanteric fracture transfixed by antegrade medullary nail with 2 hip screws and 2 distal interlocking screws. Hardware is intact. Mildly displaced lesser trochanter fracture fragment. Deep soft tissue gas about the hip and knee. Mild left hip and knee osteoarthritis. Procedure Note Giovani Flores MD - 04/11/2025 EXAMINATION: XR FEMUR LEFT 2 OR MORE VIEWS HISTORY: Fracture. FINDINGS: Comparison to 04/11/2025 at 5:58 AM. Interval reduced and nailed left femur intertrochanteric fracture transfixed by antegrade medullary nail with 2 hip screws and 2 distal interlocking screws. Hardware is intact. Mildly displaced lesser trochanter fracture fragment. Deep soft tissue gas about the hip and knee. Mild left hip and knee osteoarthritis. IMPRESSION: 1. Interval reduced and nailed left intertrochanteric fracture. Electronically signed by: Giovani Flores MD us Romeo Oropeza MD IMG XR PROCEDURES Final R esult * NM INJECTION AA&/STRD OTHER PERIPHERAL NERVE/BRANCH (04/11/2025 3:22 PM CDT) Narrative Alejandra Conti MD - 04/11/2025 3:22 PM CDT Alejandra Conti MD 04/11/2025 3:24 PM Nerve Block Date/Time: 04/11/2025 3:22 PM Performed by: Alejandra Conti MD Authorized by: Pradeep Francisco MD [place] Protocol: RN Notified of Procedure: yes Informed consent: Risks, benefits, alternatives discussed and patient/financial service representative/guardian agrees and accepts Patient's stated name/ matches armband: Yes Allergies confirmed: yes Procedure verified: Verbal consent obtained. Imaging: Pertinent imaging reviewed, correctly oriented and match to patient identifiers Lab/Diag test results: Pertinent lab/diag tests reviewed and match to patient identifiers Supplies, devices and special equipment are available: yes Site/side marked: yes Immediately prior to the procedure a time out was called: a verbal verification by the procedure participants confirmed correct patient identity, correct site/side marked and visible (if applicable); agreement on procedure to be done; and correct patient positioning Indications: Indications: Pain relief Location: Body area: Lower extremity Lower extremity nerve: Fascia iliaca Laterality: Left Pre-procedure details: Skin preparation: 2% chlorhexidine Preparation: Patient was prepped and draped in usual sterile fashion Skin anesthesia (see MAR for exact dosages): Skin anesthesia method: None Procedure details (see MAR for exact dosages): Block needle gauge: 21 G Guidance: ultrasound Anesthetic injected: Bupivacaine 0.5% Anesthetic mL's injected: 20 Additive injected: Normal saline Additive mLs injected: 30 Injection procedure: Introduced needle, negative aspiration for blood and incremental injection Paresthesia: None Post-procedure details: Dressing: None Outcome: Pain improved Patient tolerance of procedure: Tolerated well, no immediate complications Result [facility] Pradeep Francisco MD IN CLINIC/BEDSIDE O RDERABLES Final Result * ECG 12 lead (04/11/2025 2:22 PM CDT) [facility] Ventricular Rate EKG/Min 113 BPM [facility] Atrial Rate 113 BPM [facility] QRS-Interval (MSEC) 64 ms [facility] QT-Interval (MSEC) 298 ms [facility] QTc 408 ms [facility] R Kite 76 degrees [facility] T Kite 70 degrees [facility] Diagnosis Atrial fibrillation with a rapid ventricular response Low voltage limb leads: consider pericardial effusions, pulm disease, pleural effusion, obesity or cardiomyopathy Abnormal ECG No previous ECGs available Confirmed by fellow Balaji Toro ([id number]) on 04/12/2025 8:45:35 AM Confirmed by MARQUIS PERKINS M.D ([id number]) on 04/12/2025 9:29:46 AM [facility] 04/11/2025 2:22 PM CDT 04/12/2025 9:29 AM CDT Result [facility] Alejandra Conti MD ECG ORDERABLES Final Resu lt [facility] * POCT glucose (04/11/2025 2:22 PM CDT) Glucose, POC 153 70 - 199 mg/dL Blood 04/11/2025 2:22 PM CDT 04/11/2025 2:22 PM CDT Romeo Oropeza MD LAB POCT ORDERABLES - DEV ICE Final Result [facility] Department [place] [address] * POCT glucose (04/11/2025 12:11 PM CDT) Glucose, POC 75 70 - 199 mg/dL Blood 04/11/2025 12:1 1 PM CDT 04/11/2025 12:11 PM CDT Romeo Oropeza MD LAB POCT ORDERABLES - DEV ICE Final Result Performing Organization Address [facility] Co de Phone Number [facility] [employer] [place] [address] * POCT glucose (04/11/2025 11:49 AM CDT) Glucose, POC 152 70 - 199 mg/dL Blood 04/11/2025 11:4 9 AM CDT 04/11/2025 11:49 AM CDT Romeo Oropeza MD LAB POCT ORDERABLES - DEV ICE Final Result Performing Organization Address [facility] Co de Phone [place] [address] * FL Fluoroscopy < 1 Hour (04/11/2025 11:26 AM CDT) Narrative [email or web address] - 04/11/2025 11:27 AM CDT The images from this study are not interpreted by Radiology. Please refer to the physician's procedure / OR operative note. us Alejandra Riggins MD IMG FLUOROSCOPY PROCEDURES Final Result Performing Organization Address [facility] Co de Phone Number [email or web address] * (ABNORMAL) POC Blood Gas and Chemistries, Venous - (04/11/2025 11:01 AM CDT) pH, Monte[place] POC 7.25(L) 7.32 - 7.43 pCO2, montez POC 44 40 - 50 mmHg [facility] pO2, montez POC 27 mmHg [facility] Na, POC 133(L) 135 - 145 mmol/L [facility] K POC 3.7 3.3 - 4.9 mmol/L [facility] Comment: Interpretive Data Not all point of care methods assess for hemolysis. Confirm with instrument and retest K+ if not consistent with clinical signs and symptoms. Current Interpretive Data was last revised on 2023. Cl, POC 107 97 - 110 mmol/L [facility] Ionized Ca, POC 4.35(L) 4.50 - 5.10 mg/dL [facility] Glucose, POC 67(L) 70 - 199 mg/dL [facility] Lactate POC 2.5(H) 0.7 - 2.0 mmol/L [facility] O2 Sat, [place] POC (Luis Carlos) 41 % [facility] Base excess, POC -7.6 mmol/L [facility] HCO3, [place] POC 19(L) 20 - 30 mmol/L [facility] Hct, POC 29.0(L) 41.4 - 51.6 % [facility] Total Hb, POC 9.8(L) 13.8 - 17.2 g/dL [facility] Blood 04/11/2025 11:0 1 AM CDT 04/11/2025 11:01 AM CDT us Romeo Oropeza MD LAB POCT ORDERABLES - DEV ICE Final Result Performing Organization Address City/State/[facility] Co de Phone Number [facility] Department [place] [address] * NM AN ELECTIVE ENDOTRACHEAL AIRWAY, NM AN PROCEDURE PLACEHOLDER (04/11/2025 10:09 AM CDT) Narrative Jalil Stringer III, CRNA - 04/11/2025 10:09 AM CDT Jalil Stringer III, CRNA 04/11/2025 10:10 AM Airway Patient location: OR Urgency: elective Indications for airway management: anesthesia Difficult airway: no Staff: Placed by: CHECK WRITING MACHINE OPERATOR: Jalil Stringer III, CRNA Emergent airway documentation: Risks and benefits discussed: yes Consent obtained: yes Consent given by: patient Airway prep: Preoxygenated: yes Patient position: sniffing MILS maintained throughout: yes Mask difficulty assessment: 1 - vent by mask Spontaneous ventilation during airway: absent Sedation level during airway: GA Final airway details: Final airway type: endotracheal airway Tube type: ETT ETT size: 7.0 mm Cuffed: yes Technique used for successful ETT placement: video laryngoscopy Insertion site: oral Blade type: Scooter Video blade type: Eckert Blade size: 3 Cormack-Lehane (video): grade I - full view of glottis Cuff volume: 10 mL Cuff inflated with: air ETT to lips: 24 cm Placement verified by: auscultation Airway secured with: silk tape Number of attempts: 1 us Michael Victoria MD ANESTHESIA ORDERABLES Final Res ult * (ABNORMAL) POC Blood Gas and Chemistries, Venous - (04/11/2025 10:01 AM CDT) pH, Montez POC 7.24(L) 7.32 - 7.43 pCO2, montez POC 62(H) 40 - 50 mmHg [facility] pO2, montez POC 44 mmHg [facility] Na, POC 128(L) 135 - 145 mmol/L [facility] K POC 5.0(H) 3.3 - 4.9 mmol/L [facility] Comment: Interpretive Data Not all point of care methods assess for hemolysis. Confirm with instrument and retest K+ if not consistent with clinical signs and symptoms. Current Interpretive Data was last revised on 2023. Cl, POC 96(L) 97 - 110 mmol/L [facility] Ionized Ca, POC 4.82 4.50 - 5.10 mg/dL [facility] Glucose, POC 90 70 - 199 mg/dL [facility] Lactate POC 2.3(H) 0.7 - 2.0 mmol/L [facility] O2 Sat, Monte[place] POC (Luis Carlos) 74 % [facility] Base excess, POC -1.7 mmol/L [facility] HCO3, [place] POC 27 20 - 30 mmol/L [facility] Hct, POC 34.0(L) 41.4 - 51.6 % [facility] Total Hb, POC 11.4(L) 13.8 - 17.2 g/dL [facility] Blood 04/11/2025 10:0 1 AM CDT 04/11/2025 10:01 AM CDT Romeo Oropeza MD LAB POCT ORDERABLES - DEV ICE Final Result [facility] Department [place] [address] * NM AN PROCEDURE PLACEHOLDER (04/11/2025 9:40 AM CDT) Narrative Sherman Nogueira MD - 04/11/2025 9:40 AM CDT Sherman Nogueira MD 04/11/2025 1:48 PM Peripheral Block Patient location during procedure: pre-op holding Reason for block: post-op pain management per surgeon request Block type: single shot Laterality: left Block type: fascia iliaca nerve block Staff: Supervising provider: Sherman Nogueira MD Placed by: Resident: Mansoor Suarez MD Procedure prep: Preprocedure checklist: patient identified, procedure contraindications assessed, site marked, procedure consent, surgical consent, IV checked, risks, benefits and alternatives discussed, monitors and equipment checked and timeout performed Patient position: supine Procedure performed while patient: sedate with meaningful contact Monitoring: ECG, oximetry and blood pressure Supplemental O2: nasal cannula Prep solution: chlorhexidine/alcohol PPE: provider hat/mask, sterile gloves and sterile probe cover and gel Peripheral nerve block: Technique: ultrasound guided Needle type: echogenic and short-bevel Needle gauge: 22 G Needle length: 80 mm Injection assessment: injection made incrementally with constant monitoring, negative aspiration for heme, no paresthesias noted and normal resistance to injection Assessment: Block success: full evaluation pending Events: patient tolerated procedure well with no complications Result [facility] Sherman Nogueira MD ANESTHESIA ORDERABLES Final Resu lt * POCT glucose (04/11/2025 8:43 AM CDT) Glucose, POC 84 70 - 199 mg/dL Blood 04/11/2025 8:43 AM CDT 04/11/2025 8:43 AM CDT Romeo Oropeza MD LAB POCT ORDERABLES - DEV ICE Final Result [facility] Department [place] [address] * XR Pelvis 1 or 2 Views (04/11/2025 6:09 AM CDT) Anatomical Region Laterality Modality Body, Pelvis N/A Computed Radiogr aphy 04/11/2025 6:33 AM CDT Impressions 04/11/2025 12:44 PM CDT FINDINGS/IMPRESSION: PELVIS: Comparison radiograph dated 04/10/2025. Comminuted, mildly displaced fracture of the intertrochanteric left femur. Unchanged alignment. The left femoral head appears well-seated within the acetabulum. Mild bilateral hip osteoarthritis. No additional fractures. Dictated by: Carissa Doe MD The radiology attending physician has personally reviewed this study, and had reviewed and/or edited this written report and agrees with it. Electronically signed by: Yari Sood M.D. Narrative 04/11/2025 12:44 PM CDT EXAMINATION: XR PELVIS 1 OR 2 VIEWS HISTORY: pain Procedure Note Yari Sood MD - 04/11/2025 EXAMINATION: XR PELVIS 1 OR 2 VIEWS HISTORY: pain IMPRESSION: FINDINGS/IMPRESSION: PELVIS: Comparison radiograph dated 04/10/2025. Comminuted, mildly displaced fracture of the intertrochanteric left femur. Unchanged alignment. The left femoral head appears well-seated within the acetabulum. Mild bilateral hip osteoarthritis. No additional fractures. Dictated by: Carissa Doe MD The radiology attending physician has personally reviewed this study, and had reviewed and/or edited this written report and agrees with it. Electronically signed by: Yari Sood M.D. Romeo Oropeza MD IMG XR PROCEDURES Final R esult * (ABNORMAL) eGFR (04/11/2025 5:21 AM CDT) eGFR 39(L) >=60 mL/min/1. 73 m2 Comment: Interpretive Data Reference Interval Normal >/= 90 mL/min/1.73m2 Mildly decreased* 60 - 89 mL/min/1.73m2 Mildly to moderately decreased 45 - 59 mL/min/1.73m2 Moderately to severely decreased 30 - 44 mL/min/1.73m2 Severely decreased 15 - 29 mL/min/1.73m2 Kidney Failure < 15 mL/min/1.73m2 *Relative to young adult level Estimated glomerular filtration rate is determined by the 2020 CKD-EPI equation recommended by the National Kidney Foundation (A Unifying Approach to GFR Estimation: Recommendations of the NKF-ASK Task Force on Reassessing the Inclusion of Race in Diagnosing Kidney Disease, JASN 2020). The CKD-EPI equation should not be used for patients with unstable renal function and has not been validated in children and those over 70. Current interpretive data was last reviewed 2021. Blood 04/11/2025 5:21 AM CDT 04/11/2025 5:44 AM CDT us Pradeep Francisco MD LAB BLOOD ORDERABLE S Final [facility] Department of [employer] [place] [address] * Magnesium (04/11/2025 5:21 AM CDT) Magnesium 1.4 1.4 - 2.5 mg/dL Blood 04/11/2025 5:21 AM CDT 04/11/2025 5:44 AM CDT Pradeep Francisco MD LAB BLOOD ORDERABLE S Final Result [facility] Department [place] [address] * (ABNORMAL) Basic metabolic panel (04/11/2025 5:21 AM CDT) Pathologist [facility] [place] Sodium 129(L) 135 - 145 mmol/L Potassium, pl 5.2(H) 3.3 - 4.9 mmol/L [facility] Chloride 91(L) 97 - 110 mmol/L [facility] CO2 27 22 - 32 mmol/L [facility] Anion gap 11 2 - 15 mmol/L [facility] BUN 11 6 - 25 mg/dL [facility] Creatinine 1.85(H) 0.80 - 1.30 mg/dL [facility] Glucose 93 70 - 199 mg/dL [facility] Comment: Interpretive Data Fasting glucose >/= 126 mg/dl is diagnostic for diabetes. Fasting is defined as no caloric intake for at least 8 hours. Fasting glucose between 100 mg/dl to 125 mg/dl is diagnostic of prediabetes. In a patient with classic symptoms of hyperglycemia or hyperglycemic crisis, a random glucose >/= 200 mg/dl is diagnostic for diabetes. In the absence of unequivocal hyperglycemia, results should be confirmed by repeat testing. The classification and Diagnosis of Diabetes Diabetes Care 2021; 46: S19-S40. Current interpretive data was last revised 2022. Calcium 9.0 8.5 - 10.3 mg/dL [facility] Blood 04/11/2025 5:21 AM CDT 04/11/2025 5:44 AM CDT us Pardeep Francisco MD LAB BLOOD ORDERABLE S Final Result [facility] Department [place] [address] * (ABNORMAL) eGFR (04/11/2025 2:39 AM CDT) Pathologist [facility] [place] eGFR 47(L) >=60 mL/min/1. 73 m2 Comment: Interpretive Data Reference Interval Normal >/= 90 mL/min/1.73m2 Mildly decreased* 60 - 89 mL/min/1.73m2 Mildly to moderately decreased 45 - 59 mL/min/1.73m2 Moderately to severely decreased 30 - 44 mL/min/1.73m2 Severely decreased 15 - 29 mL/min/1.73m2 Kidney Failure < 15 mL/min/1.73m2 *Relative to young adult level Estimated glomerular filtration rate is determined by the 2020 CKD-EPI equation recommended by the National Kidney Foundation (A Unifying Approach to GFR Estimation: Recommendations of the NKF-ASK Task Force on Reassessing the Inclusion of Race in Diagnosing Kidney Disease, JASN 2020). The CKD-EPI equation should not be used for patients with unstable renal function and has not been validated in children and those over 70. Current interpretive data was last reviewed 2021. Blood 04/11/2025 2:39 AM CDT 04/11/2025 2:58 AM CDT us Pradeep Francisco MD LAB BLOOD ORDERABLE S Final Result [facility] Department [place] [address] * (ABNORMAL) Basic metabolic panel (04/11/2025 2:39 AM CDT) Sodium 130(L) 135 - 145 mmol/L Potassium, pl 4.8 3.3 - 4.9 mmol/L [facility] Chloride 93(L) 97 - 110 mmol/L [facility] CO2 30 22 - 32 mmol/L [facility] Anion gap 7 2 - 15 mmol/L [facility] BUN 9 6 - 25 mg/dL [facility] Creatinine 1.59(H) 0.80 - 1.30 mg/dL [facility] Glucose 102 70 - 199 mg/dL [facility] Comment: Interpretive Data Fasting glucose >/= 126 mg/dl is diagnostic for diabetes. Fasting is defined as no caloric intake for at least 8 hours. Fasting glucose between 100 mg/dl to 125 mg/dl is diagnostic of prediabetes. In a patient with classic symptoms of hyperglycemia or hyperglycemic crisis, a random glucose >/= 200 mg/dl is diagnostic for diabetes. In the absence of unequivocal hyperglycemia, results should be confirmed by repeat testing. The classification and Diagnosis of Diabetes Diabetes Care 202; 46: S19-S40. Current interpretive data was last revised 2022. Calcium 8.8 8.5 - 10.3 mg/dL [facility] Blood 04/11/2025 2:39 AM CDT 04/11/2025 2:58 AM CDT us Pradeep Francisco MD LAB BLOOD ORDERABLE S Final Result [facility] Department [place] [address] * (ABNORMAL) Urinalysis reflex to microscopic and culture Urine (04/11/2025 2:29 AM CDT) Color, ur Straw Yellow Clarity, ur Clear Clear [facility] Specific gravity, ur 1.008 1.003 - 1.030 [facility] pH, urine 6.5 [facility] Comment: Interpretive Data U rine pH is affected by diet, medications, systemic acid-base disturbances, and renal tubular function. pH may affect urinary stone formation. For example, urine pH below 6.0 may help reduce the tendency for calcium phosphate stones and pH greater than 6.0 may reduce the tendency for uric acid stone formation. Source: [facility] Current Interpretive Data was last revised on 2017 Protein, ur ql Trace Negative [facility] Glucose, ur ql Negative Negative [facility] Ketones, ur Negative Negative [facility] Bilirubin, ur Negative Negative [facility] Blood, ur 2+(A) Negative [facility] Urobilinogen, ur <2.0 <2.0 mg/dL [facility] Nitrite, ur Negative Negative [facility] Leukocyte esterase, ur 1+(A) Negative [facility] UA reflex comment Reflex to microscopic UA will be performed. [facility] Urine 04/11/2025 2:29 AM CDT 04/11/2025 2:39 AM CDT us Pradeep Francisco MD LAB MICROBIOLOGY - GENERAL ORDERABLES Final Result [facility] [place] [address] * (ABNORMAL) Urinalysis, microscopic only (04/11/2025 2:29 AM CDT) WBC, ur 6-10(A) 0 - 5 /HPF RBC, ur 21-50(A) 0 - 2 /HPF [facility] Epithelial cells, squamous, ur 1-5 0 - 5 /HPF [facility] Bacteria, ur Trace(A) [facility] Yeast, ur 2+(A) [facility] Mucous, ur Present(A) [facility] Culture Reflex Comment Reflex conditions for urine culture (WBC >10) not met. [facility] Urine 04/11/2025 2:29 AM CDT 04/11/2025 2:39 AM CDT us Pradeep Francisco MD LAB URINE ORDERABLE S Final Result Performing Organization Address [facility] Co de Phone Number [facility] Department [place] [address] * Check Sample (04/11/2025 12:13 AM CDT) Pathologist [facility] [place] ABO Rh AB Positive [facility] OTHER 04/11/2025 12:1 3 AM CDT 04/11/2025 12:29 AM CDT Romeo Oropeza MD LAB BLOOD ORDERABLES Alyssa l Result [facility] [place] [address] [facility] * Sepsis Lactate w/ Reflex (04/10/2025 10:41 PM CDT) Pathologist [facility] [place] Sepsis Lactate 1.5 0.7 - 2.0 mmol/L Blood 04/10/2025 10:4 1 PM CDT 04/10/2025 10:51 PM CDT us Alejandra Conti MD LAB BLOOD ORDERABLES Final Result [facility]AC[facility] Javier [facility] [employer] [place] [address] * Type and screen (04/10/2025 10:41 PM CDT) ABO Rh AB Positive Kareen, indirect Negative [facility] Blood 04/10/2025 10:4 1 PM CDT 04/10/2025 11:04 PM CDT Alejandra Conti MD LAB BLOOD BANK TEST ORDERA BLES Final Result Performing Organization Address [facility] Co de Phone Number [facility]IS TRACY Javier [facility] [employer] [place] [address] * XR Chest 1 Vw Portable (04/10/2025 10:23 PM CDT) Anatomical Region Laterality Modality Body, Chest N/A Computed Radiogr aphy 04/10/2025 10:4 7 PM CDT Impressions 04/11/2025 12:44 PM CDT No comparison radiographs. No pulmonary consolidation, pleural effusion, or pneumothorax. Normal cardiomediastinal silhouette. Unchanged biapical scarring. Dictated by: Carissa Doe MD The radiology attending physician has personally reviewed this study, and had reviewed and/or edited this written report and agrees with it. Electronically signed by: Yari Sood M.D. Narrative 04/11/2025 12:44 PM CDT EXAMINATION: 1 view chest radiograph Procedure Note Yari Sodo MD - 04/11/2025 EXAMINATION: 1 view chest radiograph IMPRESSION: No comparison radiographs. No pulmonary consolidation, pleural effusion, or pneumothorax. Normal cardiomediastinal silhouette. Unchanged biapical scarring. Dictated by: Carissa Doe MD The radiology attending physician has personally reviewed this study, and had reviewed and/or edited this written report and agrees with it. Electronically signed by: Yari Sood M.D. us Alejandra Conti MD IMG XR PROCEDURES Final Re sult * NM INSJ TEMP NDWELLG BLADDER CATHETER COMPLICATED (04/10/2025 10:20 PM CDT) Narrative Alejandra Conti MD - 04/10/2025 10:20 PM CDT Alejandra Conti MD 04/11/2025 5:13 PM Bladder Catheterization Date/Time: 04/10/2025 10:20 PM Performed by: Alejandra Conti MD Authorized by: Pradeep Francisco MD [place] Protocol: RN Notified of Procedure: yes Informed consent: Risks, benefits, alternatives discussed Allergies confirmed: yes Consent form signed, dated, timed; matches correct patient, intended procedure and site: No consent form due to emergent status Imaging: Pertinent imaging reviewed, correctly oriented and match to patient identifiers Lab/Diag test results: Pertinent lab/diag tests reviewed and match to patient identifiers Immediately prior to the procedure a time out was called: a verbal verification by the procedure participants confirmed correct patient identity, correct site/side marked and visible (if applicable); agreement on procedure to be done; and correct patient positioning Pre-procedure details: Procedure purpose: Therapeutic Indications: Pain Anesthesia (see MAR for exact dosages): Anesthesia method: None Procedure details: Provider performed due to: Complicated insertion and nurse unable to complete Catheter insertion: Temporary indwelling Catheter type: Coude Catheter size: 16 Fr Bladder irrigation: no Number of attempts: 3 Post-procedure details: Patient tolerance of procedure: Tolerated with difficulty Comments: Unable to place catheter despite multiple attempts, aborted attempts after third, urology consulted for placement us Pradeep Francisco MD IN CLINIC/BEDSIDE O RDERABLES Final Result * (ABNORMAL) Sepsis Lactate w/ Reflex (04/10/2025 7:54 PM CDT) Sepsis Lactate 2.2(H) 0.7 - 2.0 mmol/L Blood 04/10/2025 7:54 PM CDT 04/10/2025 8:11 PM CDT Alejandra Conti MD LAB BLOOD ORDERABLES Final Result Performing Organization Address City/State/[facility] de Phone Number [facility] Department [place] [address] * aPTT (04/10/2025 7:54 PM CDT) aPTT 30 26 - 38 sec Comment: Interpretive Data Heparin therapeutic range: 66.0 - 100.0 seconds. Range based on correlation with therapeutic heparin activity range of 0.3 - 0.7 Units/mL. Current interpretive data was last revised on 2023. Blood 04/10/2025 7:54 PM CDT 04/10/2025 8:25 PM CDT us Alejandra Conti MD LAB BLOOD ORDERABLES Final Result Performing Organization Address [facility] Phone Number [facility] [place] [place] [address] * XR Hip Left 1 View (04/10/2025 7:02 PM CDT) Anatomical Region Laterality Modality Lower Extremities, Hip, Pelvis Left C omputed Radiography 04/10/2025 7:07 PM CDT Impressions 04/10/2025 7:08 PM CDT Redemonstrated intertrochanteric fracture of the left femur with slight improved alignment compared to prior in traction view. The femoral head remains seated in the acetabulum. Dictated by: Arabella Maynard M.D. The radiology attending physician has personally reviewed this study, and had reviewed and/or edited this written report and agrees with it. Electronically signed by: Hieu Jimenez M.D. Narrative 04/10/2025 7:08 PM CDT EXAMINATION: XR HIP LEFT 1 VIEW HISTORY: Left femur fracture Traction view of the left hip is submitted for evaluation and compared to same day radiographs. Procedure Note Hieu Jimenez MD - 04/10/2025 EXAMINATION: XR HIP LEFT 1 VIEW HISTORY: Left femur fracture Traction view of the left hip is submitted for evaluation and compared to same day radiographs. IMPRESSION: Redemonstrated intertrochanteric fracture of the left femur with slight improved alignment compared to prior in traction view. The femoral head remains seated in the acetabulum. Dictated by: Arabella Maynard M.D. The radiology attending physician has personally reviewed this study, and had reviewed and/or edited this written report and agrees with it. Electronically signed by: Hieu Jimenez M.D. Alejandra Conti MD IMG XR PROCEDURES Final Re sult * XR Knee Left 1 or 2 Views (04/10/2025 5:57 PM CDT) Anatomical Region Laterality Modality Lower Extremities, Knee Left Computed Radiography 04/10/2025 6:14 PM CDT Impressions 04/10/2025 6:26 PM CDT Acute, displaced left femur intertrochanteric fracture. Dictated by: Arabella Maynard M.D. The radiology attending physician has personally reviewed this study, and had reviewed and/or edited this written report and agrees with it. Electronically signed by: Hieu Jimenez M.D. Narrative 04/10/2025 6:26 PM CDT EXAMINATION: XR HIP LEFT 2 OR 3 VIEWS, XR FEMUR LEFT 2 OR MORE VIEWS, XR KNEE LEFT 1 OR 2 VIEWS HISTORY: 69-year-old male with fall off stool with left leg pain FINDINGS: Left hip: There is an acute, displaced left femur intertrochanteric fracture with associated comminuted fractures of the lesser and greater trochanters. The femoral head is seated within the acetabula. Left femur: No acute fracture of the distal femur. Left knee: No acute fracture or dislocation of the left knee. Mild medial joint space narrowing. No soft tissue abnormality. Procedure Note Hieu Jimenez MD - 04/10/2025 EXAMINATION: XR HIP LEFT 2 OR 3 VIEWS, XR FEMUR LEFT 2 OR MORE VIEWS, XR KNEE LEFT 1 OR 2 VIEWS HISTORY: 69-year-old male with fall off stool with left leg pain FINDINGS: Left hip: There is an acute, displaced left femur intertrochanteric fracture with associated comminuted fractures of the lesser and greater trochanters. The femoral head is seated within the acetabula. Left femur: No acute fracture of the distal femur. Left knee: No acute fracture or dislocation of the left knee. Mild medial joint space narrowing. No soft tissue abnormality. IMPRESSION: Acute, displaced left femur intertrochanteric fracture. Dictated by: Arabella Maynard M.D. The radiology attending physician has personally reviewed this study, and had reviewed and/or edited this written report and agrees with it. Electronically signed by: Hieu Jimenez M.D. us Alejandra Conti MD IMG XR PROCEDURES Final Re sult * XR Femur Left 2 or More Views (04/10/2025 5:57 PM CDT) Anatomical Region Laterality Modality Lower Extremities, Thigh, Femur Left Computed Radiography 04/10/2025 6:14 PM CDT Impressions 04/10/2025 6:26 PM CDT Acute, displaced left femur intertrochanteric fracture. Dictated by: Arabella Maynard M.D. The radiology attending physician has personally reviewed this study, and had reviewed and/or edited this written report and agrees with it. Electronically signed by: Hieu Jimenez M.D. Narrative 04/10/2025 6:26 PM CDT EXAMINATION: XR HIP LEFT 2 OR 3 VIEWS, XR FEMUR LEFT 2 OR MORE VIEWS, XR KNEE LEFT 1 OR 2 VIEWS HISTORY: 69-year-old male with fall off stool with left leg pain FINDINGS: Left hip: There is an acute, displaced left femur intertrochanteric fracture with associated comminuted fractures of the lesser and greater trochanters. The femoral head is seated within the acetabula. Left femur: No acute fracture of the distal femur. Left knee: No acute fracture or dislocation of the left knee. Mild medial joint space narrowing. No soft tissue abnormality. Procedure Note Hieu Jimenez MD - 04/10/2025 EXAMINATION: XR HIP LEFT 2 OR 3 VIEWS, XR FEMUR LEFT 2 OR MORE VIEWS, XR KNEE LEFT 1 OR 2 VIEWS HISTORY: 69-year-old male with fall off stool with left leg pain FINDINGS: Left hip: There is an acute, displaced left femur intertrochanteric fracture with associated comminuted fractures of the lesser and greater trochanters. The femoral head is seated within the acetabula. Left femur: No acute fracture of the distal femur. Left knee: No acute fracture or dislocation of the left knee. Mild medial joint space narrowing. No soft tissue abnormality. IMPRESSION: Acute, displaced left femur intertrochanteric fracture. Dictated by: Arabella Maynard M.D. The radiology attending physician has personally reviewed this study, and had reviewed and/or edited this written report and agrees with it. Electronically signed by: Hieu Jimenez M.D. us Alejandra Conti MD IMG XR PROCEDURES Final Re sult * XR Hip Left 2 or 3 Views (04/10/2025 5:57 PM CDT) Anatomical Region Laterality Modality Lower Extremities, Hip, Pelvis Left C omputed Radiography 04/10/2025 6:14 PM CDT Impressions 04/10/2025 6:26 PM CDT Acute, displaced left femur intertrochanteric fracture. Dictated by: Arabella Maynard M.D. The radiology attending physician has personally reviewed this study, and had reviewed and/or edited this written report and agrees with it. Electronically signed by: Hieu Jimenez M.D. Narrative 04/10/2025 6:26 PM CDT EXAMINATION: XR HIP LEFT 2 OR 3 VIEWS, XR FEMUR LEFT 2 OR MORE VIEWS, XR KNEE LEFT 1 OR 2 VIEWS HISTORY: 69-year-old male with fall off stool with left leg pain FINDINGS: Left hip: There is an acute, displaced left femur intertrochanteric fracture with associated comminuted fractures of the lesser and greater trochanters. The femoral head is seated within the acetabula. Left femur: No acute fracture of the distal femur. Left knee: No acute fracture or dislocation of the left knee. Mild medial joint space narrowing. No soft tissue abnormality. Procedure Note Hieu Jimenez MD - 04/10/2025 EXAMINATION: XR HIP LEFT 2 OR 3 VIEWS, XR FEMUR LEFT 2 OR MORE VIEWS, XR KNEE LEFT 1 OR 2 VIEWS HISTORY: 69-year-old male with fall off stool with left leg pain FINDINGS: Left hip: There is an acute, displaced left femur intertrochanteric fracture with associated comminuted fractures of the lesser and greater trochanters. The femoral head is seated within the acetabula. Left femur: No acute fracture of the distal femur. Left knee: No acute fracture or dislocation of the left knee. Mild medial joint space narrowing. No soft tissue abnormality. IMPRESSION: Acute, displaced left femur intertrochanteric fracture. Dictated by: Arabella Maynard M.D. The radiology attending physician has personally reviewed this study, and had reviewed and/or edited this written report and agrees with it. Electronically signed by: Hieu Jimenez M.D. us Alejandra Conti MD IMG XR PROCEDURES Final Re sult * (ABNORMAL) Sepsis Lactate w/ Reflex (04/10/2025 5:18 PM CDT) Pathologist [facility] [place] Sepsis Lactate 2.8(H) 0.7 - 2.0 mmol/L Blood 04/10/2025 5:18 PM CDT 04/10/2025 5:33 PM CDT Alejandra Conti MD LAB BLOOD ORDERABLES Final Result [facility] Department [place] [address] * eGFR (04/10/2025 5:18 PM CDT) eGFR 86 >=60 mL/min/1. 73 m2 Comment: Interpretive Data Reference Interval Normal >/= 90 mL/min/1.73m2 Mildly decreased* 60 - 89 mL/min/1.73m2 Mildly to moderately decreased 45 - 59 mL/min/1.73m2 Moderately to severely decreased 30 - 44 mL/min/1.73m2 Severely decreased 15 - 29 mL/min/1.73m2 Kidney Failure < 15 mL/min/1.73m2 *Relative to young adult level Estimated glomerular filtration rate is determined by the 2020 CKD-EPI equation recommended by the National Kidney Foundation (A Unifying Approach to GFR Estimation: Recommendations of the NKF-ASK Task Force on Reassessing the Inclusion of Race in Diagnosing Kidney Disease, JASN 202). The CKD-EPI equation should not be used for patients with unstable renal function and has not been validated in children and those over 70. Current interpretive data was last reviewed 2021. Blood 04/10/2025 5:18 PM CDT 04/10/2025 5:43 PM CDT us Alejandra Conti MD LAB BLOOD ORDERABLES Final Result [facility] Department [place] [address] * Differential, auto (04/10/2025 5:18 PM CDT) Neutrophil abs 6.05 1.50 - 6.50 K/cumm Imm gran abs 0.07 0.00 - 0.10 K/cumm [facility] Lymphocyte abs 2.01 0.80 - 3.30 K/cumm [facility] Monocyte abs 0.62 0.20 - 0.80 K/cumm [facility] Eosinophil abs 0.07 0.00 - 0.50 K/cumm [facility] Basophil abs 0.04 0.00 - 0.10 K/cumm [facility] Neutrophil pct 68.2 % [facility] Comment: Interpretive Data Percent cell count reference ranges are not reported, since discordance with absolute values may lead to misinterpretation of CBC data. Current Interpretive Data was last revised on 2017. Imm gran pct 0.8 % [facility] Comment: Interpretive Data Percent cell count reference ranges are not reported, since discordance with absolute values may lead to misinterpretation of CBC data. Current Interpretive Data was last revised on 2017. Lymphocyte pct 22.7 % [facility] Comment: Interpretive Data Percent cell count reference ranges are not reported, since discordance with absolute values may lead to misinterpretation of CBC data. Current Interpretive Data was last revised on 2017. Monocyte pct 7.0 % [facility] Comment: Interpretive Data Percent cell count reference ranges are not reported, since discordance with absolute values may lead to misinterpretation of CBC data. Current Interpretive Data was last revised on 2017. Eosinophil pct 0.8 % [facility] Comment: Interpretive Data Percent cell count reference ranges are not reported, since discordance with absolute values may lead to misinterpretation of CBC data. Current Interpretive Data was last revised on 2017. Basophil pct 0.5 % [facility] Comment: Interpretive Data Percent cell count reference ranges are not reported, since discordance with absolute values may lead to misinterpretation of CBC data. Current Interpretive Data was last revised on 2017. Blood 04/10/2025 5:18 PM CDT 04/10/2025 5:43 PM CDT us Alejandra Conti MD LAB BLOOD ORDERABLES Final Result [facility] Department [place] [address] * (ABNORMAL) CBC with auto differential (04/10/2025 5:18 PM CDT) WBC 8.86 3.80 - 9.90 K/cumm Hgb 14.6 13.0 - 17.5 g/dL [facility] Hct 39.5 38.9 - 50.3 % [facility] Plt 139(L) 150 - 400 K/cumm [facility] MPV 9.4 9.1 - 12.3 fL [facility] RBC 4.00(L) 4.30 - 5.80 M/cumm [facility] MCV 98.8(H) 81.3 - 96.4 fL [facility] MCH 36.5(H) 27.1 - 33.3 pg [facility] MCHC 37.0(H) 32.3 - 35.7 g/dL [facility] RDW CV 13.1 11.1 - 14.9 % [facility] RDW SD 47.3 35.7 - 48.1 fL [facility] NRBC abs 0.00 0.00 - 0.01 K/cumm [facility] Blood 04/10/2025 5:18 PM CDT 04/10/2025 5:43 PM CDT Alejandra Conti MD LAB BLOOD ORDERABLES Final Result Performing Organization Address [facility] [place] [address] * Protime-INR (04/10/2025 5:18 PM CDT) PT 10.8 10.2 - 13.5 sec INR 0.95 0.90 - 1.20 [facility] Comment: Interpretive data Oral anticoagulant therapeutic ranges: Venous thromboembolism prophylaxis or treatment: 2.0-3.0 CARDIOLOGY Standard range: 2.0-3.0 High-intensity range: 2.5-3.5 Refer to indication-specific guidelines for appropriate target ranges for prosthetic heart valve replacement. Current interpretive data was last revised on 2019. Blood 04/10/2025 5:18 PM CDT 04/10/2025 5:44 PM CDT Alejandra Conti MD LAB BLOOD ORDERABLES Final Result Performing Organization Address [facility] [place] [address] * (ABNORMAL) Ethanol (04/10/2025 5:18 PM CDT) Ethanol 39(H) <=10 mg/dL Comment: Interpretive Data Legal limit of intoxication > or = 80 mg/dL Levels > or = 400 mg/dL are potentially TOXIC. Current interpretive data was last revised on 2018. Blood 04/10/2025 5:18 PM CDT 04/10/2025 5:43 PM CDT Alejandra Conti MD LAB BLOOD ORDERABLES Final Result Performing Organization Address [facility] Phone Number [facility] Department [place] [address] * (ABNORMAL) Comprehensive metabolic panel (04/10/2025 5:18 PM CDT) Sodium 127(L) 135 - 145 mmol/L Potassium, pl 4.4 3.3 - 4.9 mmol/L [facility] Chloride 86(L) 97 - 110 mmol/L [facility] CO2 30 22 - 32 mmol/L [facility] Anion gap 11 2 - 15 mmol/L [facility] BUN 7 6 - 25 mg/dL [facility] Creatinine 0.96 0.80 - 1.30 mg/dL [facility] Glucose 110 70 - 199 mg/dL [facility] Comment: Interpretive Data Fasting glucose >/= 126 mg/dl is diagnostic for diabetes. Fasting is defined as no caloric intake for at least 8 hours. Fasting glucose between 100 mg/dl to 125 mg/dl is diagnostic of prediabetes. In a patient with classic symptoms of hyperglycemia or hyperglycemic crisis, a random glucose >/= 200 mg/dl is diagnostic for diabetes. In the absence of unequivocal hyperglycemia, results should be confirmed by repeat testing. The classification and Diagnosis of Diabetes Diabetes Care 202; 46: S19-S40. Current interpretive data was last revised 2022. Calcium 9.7 8.5 - 10.3 mg/dL [facility] Bilirubin, total 0.7 0.1 - 1.2 mg/dL [facility] Protein, pl 7.0 6.5 - 8.5 g/dL [facility] Albumin 3.9 3.5 - 5.0 g/dL [facility] Alk phos 119 40 - 130 Units/L [facility] ALT 22 7 - 55 Units/L [facility] AST 31 10 - 50 Units/L [facility] Blood 04/10/2025 5:18 PM CDT 04/10/2025 5:43 PM CDT us Alejandra Conti MD LAB BLOOD ORDERABLES Final Result [facility] Department [place] [address] from Last 3 Months Insurance [facility] MEDICARE ADVANTAGE Advance Directives For more information, please contact: [phone] * Full Code (Latest Code Status on File) Date Activated Date Inactivated Comments 04/11/2025 12:38 PM 04/19/2025 11:09 PM Care Teams Senior Dentist Relationship Specialty Start Date End Date Paco Allen DO [address] [place] [id number] PCP - General Internal Medicine 05/06/25
--- OUTSIDE RECORDS SUMMARY | 2025-05-11 12:17 | XMS_ITS | Encounter Summary ---
Author Organization [facility] Healthcare Address [address] [place] [address] Care Team Providers Care Gold Buyer Name Role Phone Unknown, Vita Primary Care Provider Unavail able Romulo Dempsey DO Primary Care Provider [phone] Paco Allen DO Primary Care Provider [phone] Encounter Details Date Type Department Care Team (Late st Contact Info) Description 12/03/[address] 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
--- OUTSIDE RECORDS SUMMARY | 2025-05-11 14:25 | XMS_ITS | Encounter Summary ---
Author Organization [facility] Healthcare Address [address] [place] [address] Care Team Providers Care Print Binding Worker Name Role Phone Unknown, Vita Primary Care Provider Unavail able Romulo Dempsey DO Primary Care Provider [phone] Paco Allen DO Primary Care Provider [phone] Encounter Details Date Type Department Care Team (Late st Contact Info) Description 12/03/2017 Orders Only [facility] [place] Health Information Management [address] [place] [address] Scanning, Provider Social History Tobacco Use Types Packs/Day Years Used Date Smoking Tobacco: Former Sex and Gender Information Value Date Recorded Sex Assigned at Not on file 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
--- OUTSIDE RECORDS SUMMARY | 2025-05-11 14:25 | XMS_ITS | Clinical Summary ---
Author Organization [facility] Address [address] [place] [address] Care Team Providers Care Precipitator Name Role Phone Pjnan Romulo DEL CID Primary Care Provider [phone] Source Comments [facility],non-owned Affiliates and Associated Physician Practices is amultiple site organization consisting of ambulatory clinics and hospital sitesin [place], [place], [place] and [place]. This disclosure is being madepursuant to the Care Everywhere program and may not contain all information available regarding this patient. Last updated 18.[facility] Allergies No known active allergies Medications * [...] fluticasone propionate (Flonase) 50 MCG/ACT nasal spray Sebastian 2 (two) sprays into each nostril once [...] Comments Blood Pressure 125/74 09/07/2022 2:19 PM TRACK ANNOUNCER Pulse 114 09/07/2022 2:19 PM TRACK ANNOUNCER Temperature 36.7 C (98.1 F) 09/07/2022 2:19 PM TRACK ANNOUNCER Respiratory Rate 20 08/04/2022 3:46 AM TRACK ANNOUNCER Oxygen Saturation 97% 09/07/2022 2:19 PM TRACK ANNOUNCER Inhaled Oxygen Concentration 40% 07/21/2022 1 1:00 AM TRACK ANNOUNCER Weight 78.5 kg (173 lb) 10/12/2022 12:28 PM TRACK ANNOUNCER Height 185.4 cm (6' 1) 10/12/2022 12:28 PM TRACK ANNOUNCER Body Mass Index 22.82 10/12/2022 12:28 PM TRACK ANNOUNCER Plan of Treatment Health Maintenance Due Date [...] to Subscriber:Self Name:REX MONTES Payer ID:[id number] (NAIC) Type:Street [employer] Address: [place] [id number] Member Subscriber Plan / Payer (Ef fective 2021-Present) Name:Rex Montes Member ID:Not on file Relation to Subscriber:Self Name:Rex Montes Payer ID:[id number] (NAIC) Type:HMO Address: [place] [phone] Advance Directives * Full Code (Latest Code Status on File) Date Activated Date Inactivated Comments 07/17/2022 4:21 AM 08/04/2022 4:07 PM Care Teams Precipitator Relationship Specialty Start Date End Date Romulo Dempsey DO [address] [place] [phone] PCP - General 09/02/22
--- OUTSIDE RECORDS SUMMARY | 2025-05-11 14:25 | XMS_ITS | Clinical Summary ---
Author Organization [facility] [address] Address [address] [place] [address] Care Team Providers Care Classification Clerk Name Role Phone Paco Allen DO Primary Care Provider +1- [phone] Allergies No known active allergies Medications atorvastatin [...] 14 or 16 Fr coude catheter with printing bindery assistant to reduce foreskin - 04/15: continue [...] Description 05/06/2025 8:45 AM CDT Office Visit [facility] Cardiology [address] [place] [address] Jose Gunter MD Primary hypertension (Primary Dx); Mixed hyperlipidemia; Paroxysmal atrial fibrillation (HCC); Premature atrial contraction; COE (dyspnea on exertion) 04/16/2025 12:55 PM CDT Ancillary Procedure [facility] Medicine Vascular Lab IP [address] [facility] [address] [place] [address] 04/11/2025 9:40 AM CDT - 04/11/2025 12:50 PM CDT Surgery [facility] Operating Room [address] [place] [address] Alejandra Riggins MD INTRAMEDULLARY NAILING FEMUR - ANTEGRADE 04/11/2025 9:32 AM CDT Anesthesia Event [facility] Operating Room [address] [place] [address] Michael Victoria MD Figura, Renee Michelle, NP 04/11/2025 Orders Only [facility] Orthopaedic Surgery [address] [facility] Medicine 6th [place] [address] [place] [address] Aeljandra Riggins MD Hip fracture, left, closed, initial encounter (HCC) (Primary Dx) 04/10/2025 5:04 PM CDT - 04/19/2025 5:01 PM CDT Hospital Encounter [address] [address] Alejandra Conti MD Schuerer, Douglas J., MD [...] on file Legal 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 Gender Identity Not on file Sexual Orientation [...] Completed 04/12/2025 Medical Devices Implanted Type Area Bi Solutions Architect Device Identifier Shelf Expiration Date Model / Serial / Lot [employer]/Orth o Nail 44cm Left Intertrochanter Intertan Im 125d 1.5mm 13mm [id number] - [id number] Implanted:Qty: 1 on 04/11/2025 by Alejandra Riggins MD at [facility] Left: Femur [employer]/O rtho [id number] 06/13/2034 [id number] / / [id number] [employer]/Orth o Intertan 4.5mm 100mm 95mm Lag Compression Integrated Interlocking [id number] - [id number] Implanted:Qty: 1 on 04/11/2025 by Alejandra Riggins MD at [facility] Left: Femur [employer]/O rtho [id number] 01/29/2035 [id number] / / [id number] [employer]/Orth o 5mm 45mm Low Profile Internal Hex Femur Screw Bone Trigen [id number] - [id number] Implanted:Qty: 1 on 04/11/2025 by Alejandra Riggins MD at [facility] Left: Femur [employer]/O rtho [id number] / / [employer]/Orth o 5mm 47.5mm Low Profile Internal Hex Femur Screw Bone Trigen [id number] - [id number] Implanted:Qty: 1 on 04/11/2025 by Alejandra Riggins MD at [facility] Left: Femur [employer]/O rtho [id number] / / Procedures Procedure Name Priority Date/Time [...] DEVICE Routine 04/11/2025 7 :15 PM CDT CO CRITICAL CARE ILL/INJURED PATIENT INIT 30-74 MIN Routine 04/11/2025 5:06 PM CDT XR FEMUR LEFT 2 OR MORE VIEWS ED Urgent/IP Urgent 04/11/2025 3:39 PM CDT CO INJECTION AA&/STRD OTHER PERIPHERAL NERVE/BRANCH Routine 04/11/2025 [...] CHEMISTRIES, VENOUS Routine 04/11/2025 11:01 AM CDT CO AN PROCEDURE PLACEHOLDER Routine 04/11/2025 10:09 AM CDT CO AN ELECTIVE ENDOTRACHEAL AIRWAY Routine 04/11/2025 10:09 AM CDT POC BLOOD GAS AND CHEMISTRIES, VENOUS Routine 04/11/2025 10:01 AM CDT CO AN PROCEDURE PLACEHOLDER Routine 04/11/2025 9:40 AM [...] 1 VIEW ED 04/10/2025 10:23 PM CDT CO INSJ TEMP NDWELLG BLADDER CATHETER COMPLICATED Routine [...] lipid panel (05/06/2025 8:40 AM CDT) Pathologist [facility] Cholesterol, POC 122 <200 MG/DL HDL, POC [...] W CONTRAST (04/19/2025 8:44 AM CDT) Pathologist [facility] Estimated EF 65-70 % CONS SCIMAGE Anatomical Region Laterality Modality Ultrasound 04/19/2025 7:33 AM CDT Narrative 04/19/2025 2:06 PM CDT [facility] Cardiac [place] [address] Transthoracic Echocardiographic Report Patient Name: REX HAWTHORNE Kimberlyn : 1955 (69y 10m) Gender: M Study Date: 04/19/2025 07:33:50 AM Ht(Inch): 73 Wt(Lb): 175.05 BSA: 2.02 Snaker Tractor Driver: Sandeep Echavarria [facility] Location: [id number] Order Provider: ANN LEIGH Heart Rate: 124 [...] CDT Procedure Note Kate Morgan, - 04/19/2025 [facility] Cardiac [place] [address] Transthoracic Echocardiographic Report Patient Name: REX HAWTHORNE D : 1955 (69y 10m) Gender: M Study Date: 04/19/2025 07:33:50 AM Ht(Inch): 73 Wt(Lb): 175.05 BSA: 2.02 Snaker Tractor Driver: Sandeep Echavarria RDCS Location: [id number] Order Provider:ANN LEIGH Heart Rate: 124 BMI: [...] [ 1.00 - 2.00 ] MV Decel Twxi296.00 msec [ 104.00 - 258.00 ] RV [...] LAB POCT ORDERABLES - DEVICE Final Result [facility] One [facility] Department [place] [address] * POCT glucose (04/18/2025 5:27 PM CDT) Glucose, POC 124 70 - 199 mg/dL Comment:Glu2: RN/ Notified Glucose comment 1 Glu2: RN/ Notified [facility] Blood 04/18/2025 5:27 PM CDT 04/18/2025 5:27 PM CDT Courtney Merchant MD LAB POCT ORDERABLES - DEVICE Final Result Performing Organization Address City/[facility] Co de Phone Number [facility] [address] * POCT glucose (04/18/2025 12:57 PM CDT) [facility] Signature Glucose, POC 113 70 - 199 mg/dL Comment:Glu2: RN/MD Notified Glucose comment 1 Glu2: RN/MD Notified [facility] Blood 04/18/2025 12:5 7 PM CDT 04/18/2025 12:57 PM CDT Courtney Merchant MD LAB POCT ORDERABLES - DEVICE Final Result Performing Organization Address [facility] de Phone Number [facility] [place] [address] * XR Shoulder Left 2 or More [...] signed by: Rafael Khanna M.D. Heather Baez BILLER IMG XR PROCEDURES Final R esult * POCT glucose (04/18/2025 8:34 AM CDT) [facility] Glucose, POC 94 70 - 199 mg/dL Comment:Glu2: RN/MD Notified Glucose comment 1 Glu2: RN/MD Notified [facility] Blood 04/18/2025 8:34 AM CDT 04/18/2025 8:34 AM CDT Courtney Merchant MD LAB POCT ORDERABLES - DEVICE Final Result [facility] One [facility] Department [place] [address] * eGFR (04/17/2025 9:25 PM CDT) [facility] eGFR >90 >=60 mL/min/1. 73 m2 Comment: [...] NP LAB BLOOD ORDERABLES Alyssa chao Result [facility] One [facility] Department [place] [address] * (ABNORMAL) CBC without differential (04/17/2025 9:25 PM CDT) WBC 3.31(L) 3.80 - 9.90 K/cumm Hgb 8.1(L) 13.0 - 17.5 g/dL [facility] Hct 23.1(L) 38.9 - 50.3 % [facility] Plt 97(L) 150 - 400 K/cumm [facility] MPV 10.3 9.1 - 12.3 fL [facility] RBC 2.34(L) 4.30 - 5.80 M/cumm [facility] MCV 98.7(H) 81.3 - 96.4 fL [facility] MCH 34.6(H) 27.1 - 33.3 pg [facility] MCHC 35.1 32.3 - 35.7 g/dL [facility] RDW CV 19.5(H) 11.1 - 14.9 % [facility] RDW SD 67.4(H) 35.7 - 48.1 fL [facility] NRBC abs 0.00 0.00 - 0.01 K/cumm [facility] Blood 04/17/2025 9:25 PM CDT 04/17/2025 10:20 PM CDT Heather Baez BILLER LAB BLOOD ORDERABLES Alyssa l Result Performing Organization Address City/[facility] Co de Phone Number [facility] [place] [address] * Phosphorus (04/17/2025 9:25 PM CDT) [facility] Phosphorus, pl 2.8 2.3 - 4.5 mg/dL Blood 04/17/2025 9:25 PM CDT 04/17/2025 10:20 PM CDT Heather Baez BILLER LAB BLOOD ORDERABLES Alyssa l Result Performing Organization Address [facility] Co de Phone Number [facility] [place] [address] * Magnesium (04/17/2025 9:25 PM CDT) [facility] Magnesium 1.7 1.4 - 2.5 mg/dL Blood 04/17/2025 9:25 PM CDT 04/17/2025 10:20 PM CDT Heather Baez BILLER LAB BLOOD ORDERABLES Alyssa l Result Performing Organization Address City/[facility] [place] [address] * (ABNORMAL) Basic metabolic panel (04/17/2025 9:25 PM CDT) [facility] Sodium 140 135 - 145 mmol/L Potassium, pl 4.0 3.3 - 4.9 mmol/L [facility] Chloride 103 97 - 110 mmol/L [facility] CO2 30 22 - 32 mmol/L [facility] Anion gap 7 2 - 15 mmol/L [facility] BUN 8 6 - 25 mg/dL [facility] Creatinine 0.75(L) 0.80 - 1.30 mg/dL [facility] Glucose 96 70 - 199 mg/dL [facility] Comment: Interpretive Data Fasting glucose >/= 126 [...] 2022. Calcium 8.4(L) 8.5 - 10.3 mg/dL [facility] Blood 04/17/2025 9:25 PM CDT 04/17/2025 10:20 PM CDT Heather Baez BILLER LAB BLOOD ORDERABLES Alyssa l Result [facility] [place] [address] * POCT glucose (04/17/2025 8:48 PM CDT) Glucose, POC 131 70 - 199 mg/dL Blood 04/17/2025 8:48 PM CDT 04/17/2025 8:48 PM CDT Courtney Merchant MD LAB POCT ORDERABLES - DEVICE Final Result [facility] [place] [address] * POCT glucose (04/17/2025 6:16 PM CDT) Glucose, POC 116 70 - 199 mg/dL Comment:Glu2: RN/ Notified Glucose comment 1 Glu2: RN/ Notified [facility] Blood 04/17/2025 6:16 PM CDT 04/17/2025 6:16 PM CDT us Courtney Merchant MD LAB POCT ORDERABLES - DEVICE Final Result Performing Organization Address City/State/[facility] Co de Phone Number [facility] One [facility] Department [place] [address] * XR Femur Right 1 View (04/17/2025 [...] Notified Glucose comment 1 Glu2: RN/MD Notified [facility] Blood 04/17/2025 11:4 6 AM CDT 04/17/2025 11:46 AM CDT Courtney Merchant MD LAB POCT ORDERABLES - DEVICE Final Result Performing Organization Address City/[facility] Co de Phone Number [facility] [place] [address] * POCT glucose (04/17/2025 9:17 AM CDT) Glucose, POC 113 70 - 199 mg/dL Blood 04/17/2025 9:17 AM CDT 04/17/2025 9:17 AM CDT Courtney Merchant MD LAB POCT ORDERABLES - DEVICE Final Result Performing Organization Address City/[facility] Co de Phone Number [facility] [place] [address] * POCT glucose (04/17/2025 8:56 AM CDT) Glucose, POC 84 70 - 199 mg/dL Blood 04/17/2025 8:56 AM CDT 04/17/2025 8:56 AM CDT Courtney Merchant MD LAB POCT ORDERABLES - DEVICE Final Result Performing Organization Address City/[facility] Co de Phone Number [facility] [place] [address] * POCT glucose (04/17/2025 8:28 AM CDT) Glucose, POC 84 70 - 199 mg/dL Blood 04/17/2025 8:28 AM CDT 04/17/2025 8:28 AM CDT Courtney Merchant MD LAB POCT ORDERABLES - DEVICE Final Result Performing Organization Address [facility] de Phone Number [facility] [place] [address] * POCT glucose (04/17/2025 8:04 AM CDT) Glucose, POC 78 70 - 199 mg/dL Blood 04/17/2025 8:04 AM CDT 04/17/2025 8:04 AM CDT Courtney Merchant MD LAB POCT ORDERABLES - DEVICE Final Result Performing Organization Address [facility] de Phone Number [facility] [place] [address] * (ABNORMAL) POCT glucose (04/17/2025 7:32 AM CDT) [facility] Glucose, POC 64(L) 70 - 199 mg/dL Blood 04/17/2025 7:32 AM CDT 04/17/2025 7:32 AM CDT Courtney Merchant MD LAB POCT ORDERABLES - DEVICE Final Result Performing Organization Address [facility] de Phone Number [facility] [place] [address] * eGFR (04/16/2025 9:55 PM CDT) [facility] eGFR >90 >=60 mL/min/1. 73 m2 Comment: [...] NP LAB BLOOD ORDERABLES Alyssa chao Result [facility] One [facility] Department [place] [address] * (ABNORMAL) CBC without differential (04/16/2025 9:55 PM CDT) WBC 2.70(L) 3.80 - 9.90 K/cumm Hgb 7.9(L) 13.0 - 17.5 g/dL [facility] Hct 23.5(L) 38.9 - 50.3 % [facility] Plt 88(L) 150 - 400 K/cumm [facility] MPV 10.2 9.1 - 12.3 fL [facility] RBC 2.40(L) 4.30 - 5.80 M/cumm [facility] MCV 97.9(H) 81.3 - 96.4 fL [facility] MCH 32.9 27.1 - 33.3 pg [facility] MCHC 33.6 32.3 - 35.7 g/dL [facility] RDW CV 18.9(H) 11.1 - 14.9 % [facility] RDW SD 65.6(H) 35.7 - 48.1 fL [facility] NRBC abs 0.00 0.00 - 0.01 K/cumm [facility] Blood 04/16/2025 9:55 PM CDT 04/16/2025 10:50 PM CDT Heather Baez BILLER LAB BLOOD ORDERABLES Alyssa l Result Performing Organization Address City/[facility] Co de Phone Number [facility] [place] [address] * Phosphorus (04/16/2025 9:55 PM CDT) [facility] Phosphorus, pl 3.5 2.3 - 4.5 mg/dL Blood 04/16/2025 9:55 PM CDT 04/16/2025 10:50 PM CDT Heather Baez BILLER LAB BLOOD ORDERABLES Alyssa l Result Performing Organization Address [facility] Co de Phone Number [facility] [place] [address] * Magnesium (04/16/2025 9:55 PM CDT) [facility] Magnesium 1.8 1.4 - 2.5 mg/dL Blood 04/16/2025 9:55 PM CDT 04/16/2025 10:50 PM CDT Heather Baez BILLER LAB BLOOD ORDERABLES Alyssa l Result Performing Organization Address City/[facility] [place] [address] * Basic metabolic panel (04/16/2025 9:55 PM CDT) [facility] Sodium 140 135 - 145 mmol/L Potassium, pl 3.9 3.3 - 4.9 mmol/L [facility] Chloride 102 97 - 110 mmol/L [facility] CO2 30 22 - 32 mmol/L [facility] Anion gap 8 2 - 15 mmol/L [facility] BUN 9 6 - 25 mg/dL [facility] Creatinine 0.80 0.80 - 1.30 mg/dL [facility] Glucose 100 70 - 199 mg/dL [facility] Comment: Interpretive Data Fasting glucose >/= 126 [...] 2022. Calcium 8.5 8.5 - 10.3 mg/dL [facility] Blood 04/16/2025 9:55 PM CDT 04/16/2025 10:50 PM CDT Heather Baez NP LAB BLOOD ORDERABLES Alyssa l Result [facility] [employer] [place], [place] [id number] * POCT glucose (04/16/2025 9:19 PM CDT) Glucose, POC 112 70 - 199 mg/dL Blood 04/16/2025 9:19 PM CDT 04/16/2025 9:19 PM CDT Courtney Merchant MD LAB POCT ORDERABLES - DEVICE Final Result Performing Organization Address City/[facility]/ZIP Co de Phone Number [facility] [place] [address] * POCT glucose (04/16/2025 4:02 PM CDT) Glucose, POC 106 70 - 199 mg/dL Blood 04/16/2025 4:02 PM CDT 04/16/2025 4:02 PM CDT us Courtney Merchant MD LAB POCT ORDERABLES - DEVICE Final Result [facility] Department of Laboratories [place], [place] [id number] * US Carotids Duplex Bilateral (04/16/2025 1:40 PM CDT) Anatomical Region Laterality Modality Vascular Bilateral Ultrasound 04/16/2025 12:5 6 PM CDT Narrative 04/16/2025 2:02 PM CDT [facility] - Department of Vascular Surgery, Vascular Laboratory [address] [place] [address] Carotid Duplex Ultrasound Report Patient Name: REX HAWTHORNE : 1955 (69y 10m) Study Date: 04/16/2025 12:56:57 PM Gender: M Tech: TT Location: [id number] Ref Provider: ANN LEIGH Quality: Adequate Order [...] LT VERT PSV 69 cm/sec FINDINGS: Performing Snaker Tractor Driver: Tyrel Stephenson RVT. Rt Common Carotid Artery: [...] Procedure Note Can Mc MD - 04/16/2025 [facility] - Department of Vascular Surgery,Vascular Laboratory [address] [place] [address] Carotid Duplex Ultrasound Report Patient Name: REX HAWTHORNE : 1955 (69y 10m) Study Date: 04/16/2025 12:56:57 PM Gender: M Tech: Location: [id number] Ref Provider: ANN LEIGH Quality: Adequate Order [...] LT VERT PSV 69 cm/sec FINDINGS: Performing Snaker Tractor Driver: Tyrel Stephenson RVT. Rt Common Carotid Artery: [...] above. Electronically Signed By: Can Mc MD [facility] 04/16/2025 2:01:43 PM CDT Result [facility] Ann Leigh NP IMG US PROCEDURES Final Re sult * Blood gas, venous (04/16/2025 12:07 PM CDT) pH, Venous 7.42 7.32 - 7.43 PCO2, Venous 46 40 - 50 mmHg [facility] PO2, Venous 66 mmHg [facility] Comment: Interpretive Data No Reference Range Established Current Interpretive Data was last revised on 2017. HCO3 Venous, Calculated 30 20 - 30 mmol/L [facility] BE, venous 4 mmol/L [facility] Comment: Interpretive Data No Reference Range Established Current Interpretive Data was last revised on 2017. Blood 04/16/2025 12:0 7 PM CDT 04/16/2025 12:21 PM CDT Ann Leigh NP LAB BLOOD ORDERABLES Final Result Performing Organization Address City/[facility] Co de Phone Number [facility] Department [place] [address] * POCT glucose (04/16/2025 11:27 AM CDT) Glucose, POC 119 70 - 199 mg/dL Blood 04/16/2025 11:2 7 AM CDT 04/16/2025 11:27 AM CDT Courtney Merchant MD LAB POCT ORDERABLES - DEVICE Final Result Performing Organization Address [facility] Co de Phone Number [facility] [place] [address] * POCT glucose (04/16/2025 7:32 AM CDT) Glucose, POC 89 70 - 199 mg/dL Blood 04/16/2025 7:32 AM CDT 04/16/2025 7:32 AM CDT Courtney Merchant MD LAB POCT ORDERABLES - DEVICE Final Result Performing Organization Address [facility] Co de Phone Number [facility] [place] [address] * eGFR (04/15/2025 9:18 PM CDT) eGFR [...] NP LAB BLOOD ORDERABLES Alyssa l Result [facility] One [facility] Department [place] [address] * (ABNORMAL) CBC without differential (04/15/2025 9:18 PM CDT) WBC 2.52(L) 3.80 - 9.90 K/cumm Hgb 8.4(L) 13.0 - 17.5 g/dL [facility] Hct 24.8(L) 38.9 - 50.3 % [facility] Plt 78(L) 150 - 400 K/cumm [facility] MPV 9.8 9.1 - 12.3 fL [facility] RBC 2.54(L) 4.30 - 5.80 M/cumm [facility] MCV 97.6(H) 81.3 - 96.4 fL [facility] MCH 33.1 27.1 - 33.3 pg [facility] MCHC 33.9 32.3 - 35.7 g/dL [facility] RDW CV 19.0(H) 11.1 - 14.9 % [facility] RDW SD 66.5(H) 35.7 - 48.1 fL [facility] NRBC abs 0.00 0.00 - 0.01 K/cumm [facility] Blood 04/15/2025 9:18 PM CDT 04/15/2025 9:33 PM CDT Heather Baez BILLER LAB BLOOD ORDERABLES Alyssa l Result Performing Organization Address City/[facility] Co de Phone Number [facility] [employer] [address] * Phosphorus (04/15/2025 9:18 PM CDT) [facility] Phosphorus, pl 2.3 2.3 - 4.5 mg/dL Blood 04/15/2025 9:18 PM CDT 04/15/2025 9:32 PM CDT Heather Baez BILLER LAB BLOOD ORDERABLES Alyssa l Result Performing Organization Address [facility] Co de Phone Number [facility] [place] [address] * Magnesium (04/15/2025 9:18 PM CDT) [facility] Magnesium 1.5 1.4 - 2.5 mg/dL Blood 04/15/2025 9:18 PM CDT 04/15/2025 9:32 PM CDT Heather Baez BILLER LAB BLOOD ORDERABLES Alyssa l Result Performing Organization Address [facility] Co de Phone Number [facility] [place] [address] * (ABNORMAL) Basic metabolic panel (04/15/2025 9:18 PM CDT) [facility] Sodium 141 135 - 145 mmol/L Potassium, pl 3.8 3.3 - 4.9 mmol/L [facility] Chloride 105 97 - 110 mmol/L [facility] CO2 29 22 - 32 mmol/L [facility] Anion gap 7 2 - 15 mmol/L [facility] BUN 7 6 - 25 mg/dL [facility] Creatinine 0.79(L) 0.80 - 1.30 mg/dL [facility] Glucose 99 70 - 199 mg/dL [facility] Comment: Interpretive Data Fasting glucose >/= 126 [...] 2022. Calcium 8.6 8.5 - 10.3 mg/dL [facility] Blood 04/15/2025 9:18 PM CDT 04/15/2025 9:32 PM CDT Heather Baez NP LAB BLOOD ORDERABLES Alyssa l Result Performing Organization Address City/[facility]/ZIP Co de Phone Number [facility] [place] [address] * POCT glucose (04/15/2025 9:17 PM CDT) [facility] Glucose, POC 108 70 - 199 mg/dL Blood 04/15/2025 9:17 PM CDT 04/15/2025 9:17 PM CDT Courtney Merchant MD LAB POCT ORDERABLES - DEVICE Final Result Performing Organization Address City/[facility]/ZIP Co de Phone Number [facility] [place] [address] * ECG 12 lead (04/15/2025 8:41 PM CDT) Ventricular Rate EKG/Min 114 BPM [facility] Atrial Rate 141 BPM [facility] CO-Interval (MSEC) 248 ms [facility] QRS-Interval (MSEC) 72 ms [facility] QT-Interval (MSEC) 284 ms [facility] QTc 391 ms [facility] P Enders 73 degrees [facility] R Enders 60 degrees [facility] T Enders 71 degrees [facility] Diagnosis Sinus tachycardia with 1st degree A-V block with Premature atrial complexes Low voltage QRS Borderline ECG When compared with ECG of 13-APR-2025 09:26, CO interval has increased Confirmed by CHUY ARNDT M.D ([id number]) on 04/17/2025 11:33:42 AM [facility] 04/15/2025 8:41 PM CDT 04/17/2025 11:33 AM CDT us Alejandra Conti MD ECG ORDERABLES Final Resu lt [facility] * eGFR (04/14/2025 8:37 PM CDT) [...] LAB BLOOD ORDERABLES Alyssa l Result [facility] Department [place] [address] * (ABNORMAL) CBC without differential (04/14/2025 8:37 PM CDT) [facility] WBC 2.87(L) 3.80 - 9.90 K/cumm Hgb 8.0(L) 13.0 - 17.5 g/dL [facility] Hct 23.0(L) 38.9 - 50.3 % [facility] Plt 79(L) 150 - 400 K/cumm [facility] MPV 10.5 9.1 - 12.3 fL [facility] RBC 2.41(L) 4.30 - 5.80 M/cumm [facility] MCV 95.4 81.3 - 96.4 fL [facility] MCH 33.2 27.1 - 33.3 pg [facility] MCHC 34.8 32.3 - 35.7 g/dL [facility] RDW CV 19.1(H) 11.1 - 14.9 % [facility] RDW SD 65.7(H) 35.7 - 48.1 fL [facility] NRBC abs 0.00 0.00 - 0.01 K/cumm [facility] Blood 04/14/2025 8:37 PM CDT 04/14/2025 8:49 PM CDT Heather Baez NP LAB BLOOD ORDERABLES Alyssa l Result Performing Organization Address [facility] Co de Phone Number [facility] Department [place] [address] * (ABNORMAL) Phosphorus (04/14/2025 8:37 PM CDT) [facility] Phosphorus, pl 2.2(L) 2.3 - 4.5 mg/dL Blood 04/14/2025 8:37 PM CDT 04/14/2025 8:49 PM CDT Heather Baez NP LAB BLOOD ORDERABLES Alyssa l Result Performing Organization Address [facility]/ZIP Co de Phone Number [facility] Department [place] [address] * Magnesium (04/14/2025 8:37 PM CDT) Pathologist [facility] Magnesium 1.4 1.4 - 2.5 mg/dL Blood 04/14/2025 8:37 PM CDT 04/14/2025 8:49 PM CDT Heather Baez NP LAB BLOOD ORDERABLES Alyssa chao Result [facility] Department [place] [address] * (ABNORMAL) Basic metabolic panel (04/14/2025 8:37 PM CDT) [facility] Sodium 139 135 - 145 mmol/L Potassium, pl 4.2 3.3 - 4.9 mmol/L [facility] Comment:Hemolyzed; Potassium value may be falsely elevated by as much as 0.3-0.5 mmol/L. Suggest redraw and reanalysis. Chloride 104 97 - 110 mmol/L [facility] CO2 28 22 - 32 mmol/L [facility] Anion gap 7 2 - 15 mmol/L [facility] BUN 7 6 - 25 mg/dL [facility] Creatinine 0.79(L) 0.80 - 1.30 mg/dL [facility] Glucose 114 70 - 199 mg/dL [facility] Comment: Interpretive Data Fasting glucose >/= 126 [...] 2022. Calcium 8.7 8.5 - 10.3 mg/dL [facility] Blood 04/14/2025 8:37 PM CDT 04/14/2025 8:49 PM CDT Heather Baez NP LAB BLOOD ORDERABLES Alyssa chao Result Performing Organization Address [facility]/ZIP Co de Phone Number [facility] Department [place] [address] * (ABNORMAL) CBC without differential (04/14/2025 3:27 AM CDT) [facility] WBC 3.55(L) 3.80 - 9.90 K/cumm Hgb 7.6(L) 13.0 - 17.5 g/dL [facility] Hct 21.9(L) 38.9 - 50.3 % [facility] Plt 56(L) 150 - 400 K/cumm [facility] MPV 9.8 9.1 - 12.3 fL [facility] RBC 2.33(L) 4.30 - 5.80 M/cumm [facility] MCV 94.0 81.3 - 96.4 fL [facility] MCH 32.6 27.1 - 33.3 pg [facility] MCHC 34.7 32.3 - 35.7 g/dL [facility] RDW CV 18.4(H) 11.1 - 14.9 % [facility] RDW SD 62.6(H) 35.7 - 48.1 fL [facility] NRBC abs 0.00 0.00 - 0.01 K/cumm [facility] Blood 04/14/2025 3:27 AM CDT 04/14/2025 3:36 AM CDT Narrative [facility] - 04/14/2025 3:44 AM CDT 1 hour after transfusion of red blood cells is complete us Romeo Oropeza MD LAB BLOOD ORDERABLES Alyssa l Result Performing Organization Address [facility]/ZIP Co de Phone Number [facility] [place] [address] * Transfuse RBC (04/14/2025 2:18 AM CDT) Blood Courtney Merchant MD BLOOD TRANSFUSION ORDBartolo DOLAN Edited Result - Final Performing Organization Address [facility] Co de Phone Number [facility] [place] [address] * Lactate (04/13/2025 10:45 PM CDT) Lactate 0.8 0.7 - 2.0 mmol/L Blood 04/13/2025 10:4 5 PM CDT 04/13/2025 11:12 PM CDT Courtney Merchant MD LAB BLOOD ORDERABLES F inal Result Performing Organization Address [facility] de Phone Number [facility] [place] [address] * (ABNORMAL) Blood gas, venous (04/13/2025 10:45 PM CDT) pH, Venous 7.34 7.32 - 7.43 PCO2, Venous 54(H) 40 - 50 mmHg [facility] PO2, Venous 38 mmHg [facility] Comment: Interpretive Data No Reference Range Established Current Interpretive Data was last revised on 2017. HCO3 Venous, Calculated 30 20 - 30 mmol/L [facility] BE, venous 3 mmol/L [facility] Comment: Interpretive Data No Reference Range Established Current Interpretive Data was last revised on 2017. Blood 04/13/2025 10:4 5 PM CDT 04/13/2025 11:00 PM CDT Courtney Merchant MD LAB BLOOD ORDERABLES F inal Result Performing Organization Address [facility] Co de Phone Number [facility] [place] [address] * Prepare RBC: 1 Units (04/13/2025 10:01 PM CDT) Product code [id number] Unit Number [id number] [facility] Product Blood Type APOS [facility] Dispense Status PRESUMED TRANSFUSED [facility] Blood 04/13/2025 10:0 1 PM CDT 04/13/2025 10:00 PM CDT Narrative [facility] - 04/14/2025 4:00 PM CDT Are special requirements needed? (All products are leukoreduced and CMV- safe)- >No Date required:-20250413 LRRBC # of [id number] Reasons:-Hgb <7 g/dL} Courtney Merchant MD BLOOD BANK PRODUCT ORD ERABLES Final Result Performing Organization Address [facility] Co de Phone Number [facility] Department [place] [employer] [address] * (ABNORMAL) Hemoglobin and hematocrit (04/13/2025 9:20 PM CDT) Hgb 6.4(C) 13.0 - 17.5 g/dL Comment:Critical value sevilla d within last 72 hrs Hct 18.0(L) 38.9 - 50.3 % [facility] Blood 04/13/2025 9:20 PM CDT 04/13/2025 9:35 PM CDT Angeli Cloud MD LAB BLOOD ORDERABLES Final Res ult [facility] [place] [employer] [address] * Type and screen (04/13/2025 9:20 PM CDT) Kareen, indirect Negative ABO Rh AB Positive [facility] Blood 04/13/2025 9:20 PM CDT 04/13/2025 9:29 PM CDT Narrative [facility] - 04/13/2025 10:37 PM CDT Has the patient had Daratumumab or Isatuximab in the past 6 months?->Unknown Angeli Cloud MD LAB BLOOD BANK TEST ORDERABLES Final Result Performing Organization Address [facility] Co de Phone Number [facility] [place] [address] * eGFR (04/13/2025 8:36 PM CDT) eGFR [...] CDT 04/13/2025 8:48 PM CDT Heather Baez BILLER LAB BLOOD ORDERABLES Alyssa l Result Performing Organization Address City/[facility]/ZIP Co de Phone Number [facility] [place] [address] * (ABNORMAL) CBC without differential (04/13/2025 8:36 PM CDT) WBC 3.91 3.80 - 9.90 K/cumm Hgb 6.0(C) 13.0 - 17.5 g/dL [facility] Comment:This result has been called to Flavio Kwok(RN) by [email or web address] on 04/13/2025 21:03:16, and has been read back. Hct 16.8(L) 38.9 - 50.3 % [facility] Plt 59(L) 150 - 400 K/cumm [facility] MPV 9.4 9.1 - 12.3 fL [facility] RBC 1.74(L) 4.30 - 5.80 M/cumm [facility] MCV 96.6(H) 81.3 - 96.4 fL [facility] MCH 34.5(H) 27.1 - 33.3 pg [facility] MCHC 35.7 32.3 - 35.7 g/dL [facility] RDW CV 18.0(H) 11.1 - 14.9 % [facility] RDW SD 63.2(H) 35.7 - 48.1 fL [facility] NRBC abs 0.00 0.00 - 0.01 K/cumm [facility] Blood 04/13/2025 8:36 PM CDT 04/13/2025 8:48 PM CDT Heather Baez NP LAB BLOOD ORDERABLES Alyssa l Result Performing Organization Address [facility] Co de Phone Number [facility] [place] [employer] [address] * Phosphorus (04/13/2025 8:36 PM CDT) Pathologist [facility] Phosphorus, pl 2.3 2.3 - 4.5 mg/dL Blood 04/13/2025 8:36 PM CDT 04/13/2025 8:48 PM CDT Heather Baez NP LAB BLOOD ORDERABLES Alyssa l Result [facility] [place] [address] * Magnesium (04/13/2025 8:36 PM CDT) Pathologist [facility] Magnesium 1.7 1.4 - 2.5 mg/dL Blood 04/13/2025 8:36 PM CDT 04/13/2025 8:48 PM CDT Heather Baez NP LAB BLOOD ORDERABLES Alyssa l Result Performing Organization Address City/State/[facility] Co de Phone Number [facility] Department [place] [address] * Basic metabolic panel (04/13/2025 8:36 PM CDT) Pathologist [facility] Sodium 137 135 - 145 mmol/L Potassium, pl 4.2 3.3 - 4.9 mmol/L [facility] Chloride 104 97 - 110 mmol/L [facility] CO2 29 22 - 32 mmol/L [facility] Anion gap 4 2 - 15 mmol/L [facility] BUN 10 6 - 25 mg/dL [facility] Creatinine 0.94 0.80 - 1.30 mg/dL [facility] Glucose 113 70 - 199 mg/dL [facility] Comment: Interpretive Data Fasting glucose >/= 126 [...] 2022. Calcium 8.8 8.5 - 10.3 mg/dL [facility] Blood 04/13/2025 8:36 PM CDT 04/13/2025 8:48 PM CDT Heather Baez NP LAB BLOOD ORDERABLES Alyssa l Result Performing Organization Address City/[facility] de Phone Number [facility] [place] [address] * (ABNORMAL) Blood gas, venous (04/13/2025 2:58 PM CDT) pH, Venous 7.32 7.32 - 7.43 PCO2, Venous 57(H) 40 - 50 mmHg [facility] PO2, Venous 51 mmHg [facility] Comment: Interpretive Data No Reference Range Established Current Interpretive Data was last revised on 2017. HCO3 Venous, Calculated 30 20 - 30 mmol/L [facility] BE, venous 3 mmol/L [facility] Comment: Interpretive Data No Reference Range Established Current Interpretive Data was last revised on 2017. Blood 04/13/2025 2:58 PM CDT 04/13/2025 4:01 PM CDT Courtney Merchant MD LAB BLOOD ORDERABLES F inal Result Performing Organization Address [facility] de Phone Number [facility] [place] [address] * ECG 12 lead (04/13/2025 9:26 AM CDT) Ventricular Rate EKG/Min 130 BPM [facility] Atrial Rate 130 BPM [facility] CO-Interval (MSEC) 194 ms [facility] QRS-Interval (MSEC) 70 ms [facility] QT-Interval (MSEC) 282 ms [facility] QTc 415 ms [facility] P Enders 88 degrees [facility] R Enders 79 degrees [facility] T Enders 75 degrees [facility] Diagnosis Sinus tachycardia with Premature supraventricular complexes Low voltage QRS Borderline ECG When compared with ECG of 11-APR-2025 23:07, No significant change was found Confirmed by CHUY ARNDT M.D ([id number]) on 04/15/2025 12:21:51 PM [facility] 04/13/2025 9:26 AM CDT 04/15/2025 12:21 PM CDT us Alejandra Conti MD ECG ORDERABLES Final Resu lt [facility] * (ABNORMAL) Blood gas, venous (04/13/2025 5:12 AM CDT) pH, Venous 7.31(L) 7.32 - 7.43 PCO2, Venous 56(H) 40 - [address] [facility] PO2, Venous 46 mmHg [facility] Comment: Interpretive Data No Reference Range Established Current Interpretive Data was last revised on 2017. HCO3 Venous, Calculated 29 20 - 30 mmol/L [facility] BE, venous 1 mmol/L [facility] Comment: Interpretive Data No Reference Range Established Current Interpretive Data was last revised on 2017. Blood 04/13/2025 5:12 AM CDT 04/13/2025 5:18 AM CDT us Romeo Oropeza MD LAB BLOOD ORDERABLES Alyssa l Result Performing Organization Address City/[facility]/ZIP Co de Phone Number [facility] Department [place] [address] * eGFR (04/12/2025 8:41 PM CDT) eGFR [...] CDT 04/12/2025 8:53 PM CDT Heather Baez BILLER LAB BLOOD ORDERABLES Alyssa l Result Performing Organization Address [facility]/ZIP Co de Phone Number [facility] [place] [address] * (ABNORMAL) CBC without differential (04/12/2025 8:41 PM CDT) WBC 4.39 3.80 - 9.90 K/cumm Hgb 8.2(L) 13.0 - 17.5 g/dL [facility] Hct 23.0(L) 38.9 - 50.3 % [facility] Plt 59(L) 150 - 400 K/cumm [facility] MPV 10.1 9.1 - 12.3 fL [facility] RBC 2.43(L) 4.30 - 5.80 M/cumm [facility] MCV 94.7 81.3 - 96.4 fL [facility] MCH 33.7(H) 27.1 - 33.3 pg [facility] MCHC 35.7 32.3 - 35.7 g/dL [facility] RDW CV 18.7(H) 11.1 - 14.9 % [facility] RDW SD 65.2(H) 35.7 - 48.1 fL [facility] NRBC abs 0.00 0.00 - 0.01 K/cumm [facility] Blood 04/12/2025 8:41 PM CDT 04/12/2025 8:54 PM CDT Heather Baez NP LAB BLOOD ORDERABLES Alyssa l Result Performing Organization Address [facility]/ZIP Co de Phone Number [facility] [place] [address] * Phosphorus (04/12/2025 8:41 PM CDT) [facility] Phosphorus, pl 2.9 2.3 - 4.5 mg/dL Blood 04/12/2025 8:41 PM CDT 04/12/2025 8:53 PM CDT Heather Baez BILLER LAB BLOOD ORDERABLES Alyssa l Result Performing Organization Address City/[facility]/[place] [address] * Magnesium (04/12/2025 8:41 PM CDT) [facility] Magnesium 1.6 1.4 - 2.5 mg/dL Blood 04/12/2025 8:41 PM CDT 04/12/2025 8:53 PM CDT Heather Baez BILLER LAB BLOOD ORDERABLES Alyssa l Result Performing Organization Address City/[facility] [place] [address] * Basic metabolic panel (04/12/2025 8:41 PM CDT) [facility] Sodium 135 135 - 145 mmol/L Potassium, pl 4.5 3.3 - 4.9 mmol/L [facility] Chloride 103 97 - 110 mmol/L [facility] CO2 26 22 - 32 mmol/L [facility] Anion gap 6 2 - 15 mmol/L [facility] BUN 10 6 - 25 mg/dL [facility] Creatinine 1.09 0.80 - 1.30 mg/dL [facility] Glucose 137 70 - 199 mg/dL [facility] Comment: Interpretive Data Fasting glucose >/= 126 [...] 2022. Calcium 8.6 8.5 - 10.3 mg/dL [facility] Blood 04/12/2025 8:41 PM CDT 04/12/2025 8:53 PM CDT Heather Baez NP LAB BLOOD ORDERABLES Alyssa l Result Performing Organization Address [facility] Co de Phone Number [facility] Department [place] [address] * Blood gas, venous (04/12/2025 6:08 PM CDT) pH, Venous 7.33 7.32 - 7.43 PCO2, Venous 47 40 - 50 mmHg [facility] PO2, Venous 169 mmHg [facility] Comment: Interpretive Data No Reference Range Established Current Interpretive Data was last revised on 2017. HCO3 Venous, Calculated 26 20 - 30 mmol/L [facility] BE, venous See Comment [facility] Comment: Quantity not sufficient to retest. Interpretive Data No Reference Range Established Current Interpretive Data was last revised on 2017. Blood 04/12/2025 6:08 PM CDT 04/12/2025 6:16 PM CDT Romeo Oropeza MD LAB BLOOD ORDERABLES Alyssa l Result Performing Organization Address [facility] Co de Phone Number [facility] Department [place] [address] * POCT glucose (04/12/2025 4:01 PM CDT) Glucose, POC 140 70 - 199 mg/dL Blood 04/12/2025 4:01 PM CDT 04/12/2025 4:01 PM CDT us Romeo Oropeza MD LAB POCT ORDERABLES - DEV ICE Final Result Performing Organization Address [facility] de Phone Number [facility] [place] [address] * (ABNORMAL) Blood gas, venous (04/12/2025 3:58 [...] ORDERABLES Alyssa l Result Performing Organization Address [facility] de Phone Number [facility] Department [place] [address] * (ABNORMAL) Blood gas, venous (04/12/2025 2:02 [...] ORDERABLES Alyssa l Result Performing Organization Address [facility] de Phone Number [facility] [place] [address] * (ABNORMAL) Blood gas, venous (04/12/2025 11:32 AM CDT) pH, Venous 7.28(L) 7.32 - 7.43 PCO2, Venous 57(H) 40 - 50 mmHg [facility] PO2, Venous 46 mmHg [facility] Comment: Interpretive Data No Reference Range Established Current Interpretive Data was last revised on 2017. HCO3 Venous, Calculated 28 20 - 30 mmol/L [facility] BE, venous 0 mmol/L [facility] Comment: Interpretive Data No Reference Range Established Current Interpretive Data was last revised on 2017. Blood 04/12/2025 11:3 2 AM CDT 04/12/2025 11:45 AM CDT Heather Baez NP LAB BLOOD ORDERABLES Alyssa l Result Performing Organization Address [facility] de Phone Number [facility] [employer] [address] * Transfuse RBC (04/12/2025 9:38 AM CDT) Blood Romeo Oropeza MD BLOOD TRANSFUSION ORDERAB LES Final Result Performing Organization Address [facility] Co de Phone Number [facility] [place] [address] * (ABNORMAL) CBC without differential (04/12/2025 8:05 AM CDT) WBC 6.57 3.80 - 9.90 K/cumm Hgb 7.9(L) 13.0 - 17.5 g/dL [facility] Hct 22.2(L) 38.9 - 50.3 % [facility] Plt 61(L) 150 - 400 K/cumm [facility] MPV 9.6 9.1 - 12.3 fL [facility] RBC 2.29(L) 4.30 - 5.80 M/cumm [facility] MCV 96.9(H) 81.3 - 96.4 fL [facility] Comment:MCV delta due to renée arent blood transfusion. MCH 34.5(H) 27.1 - 33.3 pg [facility] MCHC 35.6 32.3 - 35.7 g/dL [facility] RDW CV 17.9(H) 11.1 - 14.9 % [facility] RDW SD 61.9(H) 35.7 - 48.1 fL [facility] NRBC abs 0.00 0.00 - 0.01 K/cumm [facility] Blood 04/12/2025 8:05 AM CDT 04/12/2025 8:17 AM CDT Narrative [facility] - 04/12/2025 8:28 AM CDT 1 hour after transfusion of red blood cells is complete Romeo Oropeza MD LAB BLOOD ORDERABLES Alyssa l Result [facility] Department [place] [address] * HIV 1/2 Antibody plus p24 Antigen [...] L ORDERABLES Final Result Performing Organization Address [facility] Co de Phone Number [facility] [place] [address] * Hepatitis C antibody Blood (04/12/2025 4:30 AM CDT) Hep C Ab Nonreactive Nonreactive Comment:Antibodies to HCV no t detected. Does NOT exclude the possibility of recent exposure to HCV. Current interpretive data was last revised on 22 Blood 04/12/2025 4:30 AM CDT 04/12/2025 4:47 AM CDT us Romeo Oropeza MD LAB MICROBIOLOGY - GENERA L ORDERABLES Final Result Performing Organization Address [facility] de Phone Number [facility] [place] [address] * RPR Blood (04/12/2025 4:30 AM CDT) RPR Nonreactive Nonreactive Blood 04/12/2025 4:30 AM CDT 04/12/2025 4:47 AM CDT Romeo Oropeza MD LAB MICROBIOLOGY - GENERA L ORDERABLES Final Result Performing Organization Address [facility] Co de Phone Number [facility] [place] [address] * Hepatitis B Surface Antigen Blood (04/12/2025 4:30 AM CDT) HepBsAg Nonreactive Nonreactive Blood 04/12/2025 4:30 AM CDT 04/12/2025 4:47 AM CDT us Romeo Oropeza MD LAB MICROBIOLOGY - GENERA L ORDERABLES Final Result Performing Organization Address City/[facility]/ZIP Co de Phone Number [facility] [employer] [address] * Prepare RBC: 1 Units (04/12/2025 4:17 AM CDT) [facility] Product code [id number] Unit Number [id number] [facility] Product Blood Type APOS [facility] Dispense Status PRESUMED TRANSFUSED [facility] Blood 04/12/2025 4:17 AM CDT 04/12/2025 4:17 AM CDT Narrative [facility] - 04/12/2025 8:01 PM CDT Other indication->6 point drop in Hgb since admission, in afib RVR Are special requirements needed? (All products are leukoreduced and CMV- safe)- >No Date required:-20250412 LRRBC # of [id number] Reasons:-Other (specify)} Romeo Oropeza MD BLOOD BANK PRODUCT ORDERA BLES Final Result Performing Organization Address [facility] de Phone Number [facility] [place] [address] * POCT glucose (04/11/2025 11:44 PM CDT) [facility] Glucose, POC 105 70 - 199 mg/dL Blood 04/11/2025 11:4 4 PM CDT 04/11/2025 11:44 PM CDT Romeo Oropeza MD LAB POCT ORDERABLES - DEV ICE Final Result Performing Organization Address [facility] [place] [address] * ECG 12 lead (04/11/2025 11:07 PM CDT) [facility] Ventricular Rate EKG/Min 128 BPM [facility] Atrial Rate 128 BPM [facility] CO-Interval (MSEC) 222 ms [facility] QRS-Interval (MSEC) 70 ms [facility] QT-Interval (MSEC) 260 ms [facility] QTc 379 ms [facility] P Enders 86 degrees [facility] R Enders 81 degrees [facility] T Enders 67 degrees [facility] Diagnosis Sinus tachycardia with 1st degree A-V block with Premature atrial complexes Low voltage QRS Borderline ECG When compared with ECG of 11-APR-2025 14:22, (unconfirmed) Sinus rhythm has replaced Atrial fibrillation Confirmed by CHUY ARNDT M.D ([id number]) on 04/12/2025 4:39:04 PM [facility] 04/11/2025 11:0 7 PM CDT 04/12/2025 4:39 PM CDT us Romeo Oropeza MD ECG ORDERABLES Final Res ult [facility] * POCT glucose (04/11/2025 8:25 PM CDT) Glucose, POC 98 70 - 199 mg/dL Blood 04/11/2025 8:25 PM CDT 04/11/2025 8:25 PM CDT us Romeo Oropeza MD LAB POCT ORDERABLES - DEV ICE Final Result [facility] [place] [address] * (ABNORMAL) eGFR (04/11/2025 7:45 PM CDT) [...] Conti MD LAB BLOOD ORDERABLES Final Result [facility] Department [place] [address] * (ABNORMAL) CBC without differential (04/11/2025 7:45 PM CDT) WBC 9.53 3.80 - 9.90 K/cumm Hgb 8.2(L) 13.0 - 17.5 g/dL [facility] Comment:Hemoglobin delta due to surgical procedure. Hct 22.9(L) 38.9 - 50.3 % [facility] Plt 81(L) 150 - 400 K/cumm [facility] MPV 10.0 9.1 - 12.3 fL [facility] RBC 2.22(L) 4.30 - 5.80 M/cumm [facility] MCV 103.2(H) 81.3 - 96.4 fL [facility] MCH 36.9(H) 27.1 - 33.3 pg [facility] MCHC 35.8(H) 32.3 - 35.7 g/dL [facility] RDW CV 13.5 11.1 - 14.9 % [facility] RDW SD 50.4(H) 35.7 - 48.1 fL [facility] NRBC abs 0.00 0.00 - 0.01 K/cumm [facility] Blood 04/11/2025 7:45 PM CDT 04/11/2025 8:13 PM CDT Alejandra Conti MD LAB BLOOD ORDERABLES Final Result Performing Organization Address City/[facility] Co de Phone Number [facility] [place] [address] * Phosphorus (04/11/2025 7:45 PM CDT) Phosphorus, pl 3.5 2.3 - 4.5 mg/dL Blood 04/11/2025 7:45 PM CDT 04/11/2025 8:15 PM CDT Result [facility] Alejandra Conti MD LAB BLOOD ORDERABLES Final Result Performing Organization Address [facility] de Phone Number [facility] [place] [address] * Magnesium (04/11/2025 7:45 PM CDT) Magnesium 1.5 1.4 - 2.5 mg/dL Blood 04/11/2025 7:45 PM CDT 04/11/2025 8:15 PM CDT Result [facility] Alejandra Conti MD LAB BLOOD ORDERABLES Final Result Performing Organization Address [facility] [place] [address] * Hemoglobin A1c (04/11/2025 7:45 PM CDT) Hgb A1C 5.1 4.0 - 5.6 % Estimated Average Glucose 100 mg/dL [facility] Comment: The ADA recommends reporting an estimated [...] ORDERABLES Alyssa l Result Performing Organization Address [facility] Co de Phone Number [facility] [place] [address] * (ABNORMAL) Hepatic function panel (04/11/2025 7:45 PM CDT) Bilirubin, total 1.1 0.1 - 1.2 mg/dL Bilirubin, direct 0.5(H) 0.1 - 0.3 mg/dL [facility] Protein, pl 5.1(L) 6.5 - 8.5 g/dL [facility] Albumin 2.9(L) 3.5 - 5.0 g/dL [facility] Alk phos 65 40 - 130 Units/L [facility] ALT 16 7 - 55 Units/L [facility] AST 71(H) 10 - 50 Units/L [facility] Blood 04/11/2025 7:45 PM CDT 04/11/2025 8:15 PM CDT us Romeo Oropeza MD LAB BLOOD ORDERABLES Alyssa l Result Performing Organization Address City/[facility] Co de Phone Number [facility] [place] [address] * (ABNORMAL) Basic metabolic panel (04/11/2025 7:45 PM CDT) Sodium 129(L) 135 - 145 mmol/L Potassium, pl 5.0(H) 3.3 - 4.9 mmol/L [facility] Chloride 97 97 - 110 mmol/L [facility] CO2 25 22 - 32 mmol/L [facility] Anion gap 7 2 - 15 mmol/L [facility] BUN 12 6 - 25 mg/dL [facility] Creatinine 1.52(H) 0.80 - 1.30 mg/dL [facility] Glucose 74 70 - 199 mg/dL [facility] Comment: Interpretive Data Fasting glucose >/= 126 [...] 2022. Calcium 9.2 8.5 - 10.3 mg/dL [facility] Blood 04/11/2025 7:45 PM CDT 04/11/2025 8:15 PM CDT Alejandra Conti MD LAB BLOOD ORDERABLES Final Result [facility] Department [place] [address] * POCT glucose (04/11/2025 7:15 PM CDT) [facility] Signature Glucose, POC 70 70 - 199 mg/dL Blood 04/11/2025 7:15 PM CDT 04/11/2025 7:15 PM CDT us Romeo Oropeza MD LAB POCT ORDERABLES - DEV ICE Final Result [facility] Department [place] [address] * CO CRITICAL CARE ILL/INJURED PATIENT INIT 30-74 MIN [...] IMG XR PROCEDURES Final R esult * CO INJECTION AA&/STRD OTHER PERIPHERAL NERVE/BRANCH (04/11/2025 3:22 PM CDT) Narrative Alejandra Conti MD - 04/11/2025 3:22 PM CDT Alejandra Conti MD 04/11/2025 3:24 PM Nerve Block Date/Time: 04/11/2025 3:22 PM Performed by: Alejandra Conti MD Authorized by: Pradeep Francisco MD [place] Protocol: RN Notified of Procedure: yes Informed consent: Risks, benefits, alternatives discussed and 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 Patient's stated name/ [...] procedure: Tolerated well, no immediate complications Result [facility] Pradeep Francisco MD IN CLINIC/BEDSIDE O RDERABLES Final Result * ECG 12 lead (04/11/2025 2:22 PM CDT) [facility] Ventricular Rate EKG/Min 113 BPM [facility] Atrial Rate 113 BPM [facility] QRS-Interval (MSEC) 64 ms [facility] QT-Interval (MSEC) 298 ms [facility] QTc 408 ms [facility] R Enders 76 degrees [facility] T Enders 70 degrees [facility] Diagnosis Atrial fibrillation with a rapid ventricular response Low voltage limb leads: consider pericardial effusions, pulm disease, pleural effusion, obesity or cardiomyopathy Abnormal ECG No previous ECGs available Confirmed by fellow Balaji Toro ([id number]) on 04/12/2025 8:45:35 AM Confirmed by MARQUIS PERKINS M.D ([id number]) on 04/12/2025 9:29:46 AM [facility] 04/11/2025 2:22 PM CDT 04/12/2025 9:29 AM CDT Result [facility] Alejandra Conti MD ECG ORDERABLES Final Resu lt [facility] * POCT glucose (04/11/2025 2:22 PM CDT) Glucose, POC 153 70 - 199 mg/dL Blood 04/11/2025 2:22 PM CDT 04/11/2025 2:22 PM CDT Romeo Oropeza MD LAB POCT ORDERABLES - DEV ICE Final Result [facility] Department [place] [address] * POCT glucose (04/11/2025 12:11 PM CDT) Glucose, POC 75 70 - 199 mg/dL Blood 04/11/2025 12:1 1 PM CDT 04/11/2025 12:11 PM CDT Romeo Oropeza MD LAB POCT ORDERABLES - DEV ICE Final Result Performing Organization Address [facility] Co de Phone Number [facility] [place] [address] * POCT glucose (04/11/2025 11:49 AM CDT) Glucose, POC 152 70 - 199 mg/dL Blood 04/11/2025 11:4 9 AM CDT 04/11/2025 11:49 AM CDT Romeo Oropeza MD LAB POCT ORDERABLES - DEV ICE Final Result Performing Organization Address [facility] Co de Phone Number [place] [address] * FL Fluoroscopy < 1 Hour (04/11/2025 11:26 AM CDT) Narrative [id number] - 04/11/2025 11:27 AM CDT The images from this study are not interpreted by Radiology. Please refer to the physician's procedure / OR operative note. us Alejandra Riggins MD IMG FLUOROSCOPY PROCEDURES Final Result Performing Organization Address [facility] Co de Phone Number [email or web address] * (ABNORMAL) POC Blood Gas and Chemistries, Venous - (04/11/2025 11:01 AM CDT) pH, Montez POC 7.25(L) 7.32 - 7.43 pCO2, montez POC 44 40 - 50 mmHg [facility] pO2, montez POC 27 mmHg [facility] Na, POC 133(L) 135 - 145 mmol/L [facility] K POC 3.7 3.3 - 4.9 mmol/L [facility] Comment: Interpretive Data Not all point of care methods assess for hemolysis. Confirm with instrument and retest K+ if not consistent with clinical signs and symptoms. Current Interpretive Data was last revised on 2023. Cl, POC 107 97 - 110 mmol/L [facility] Ionized Ca, POC 4.35(L) 4.50 - 5.10 mg/dL [facility] Glucose, POC 67(L) 70 - 199 mg/dL [facility] Lactate POC 2.5(H) 0.7 - 2.0 mmol/L [facility] O2 Sat, Montez POC (Luis Carlos) 41 % [facility] Base excess, POC -7.6 mmol/L [facility] HCO3, [place] POC 19(L) 20 - 30 mmol/L [facility] Hct, POC 29.0(L) 41.4 - 51.6 % [facility] Total Hb, POC 9.8(L) 13.8 - 17.2 g/dL [facility] Blood 04/11/2025 11:0 1 AM CDT 04/11/2025 11:01 AM CDT us Romeo Oropeza MD LAB POCT ORDERABLES - DEV ICE Final Result Performing Organization Address City/State/[facility] Co de Phone Number [facility] Department [place] [address] * CO AN ELECTIVE ENDOTRACHEAL AIRWAY, CO AN PROCEDURE PLACEHOLDER (04/11/2025 10:09 AM CDT) Narrative Jalil Stringer III, CRNA - 04/11/2025 10:09 AM CDT Jalil Stringer III, CRNA 04/11/2025 10:10 AM Airway Patient location: OR Urgency: elective Indications for airway management: anesthesia Difficult airway: no Staff: Placed by: ANIMAL IMPERSONATOR: Jalil Stringer III, CRNA Emergent airway documentation: [...] POC 62(H) 40 - 50 mmHg [facility] pO2, montez POC 44 mmHg [facility] Na, POC 128(L) 135 - 145 mmol/L [facility] K POC 5.0(H) 3.3 - 4.9 mmol/L [facility] Comment: Interpretive Data Not all point of care methods assess for hemolysis. Confirm with instrument and retest K+ if not consistent with clinical signs and symptoms. Current Interpretive Data was last revised on 2023. Cl, POC 96(L) 97 - 110 mmol/L [facility] Ionized Ca, POC 4.82 4.50 - 5.10 mg/dL [facility] Glucose, POC 90 70 - 199 mg/dL [facility] Lactate POC 2.3(H) 0.7 - 2.0 mmol/L [facility] O2 Sat, Montez POC (Luis Carlos) 74 % [facility] Base excess, POC -1.7 mmol/L [facility] HCO3, [place] POC 27 20 - 30 mmol/L [facility] Hct, POC 34.0(L) 41.4 - 51.6 % [facility] Total Hb, POC 11.4(L) 13.8 - 17.2 g/dL [facility] Blood 04/11/2025 10:0 1 AM CDT 04/11/2025 10:01 AM CDT Romeo Oropeza MD LAB POCT ORDERABLES - DEV ICE Final Result [facility] Department [place] [address] * CO AN PROCEDURE PLACEHOLDER (04/11/2025 9:40 AM CDT) [...] tolerated procedure well with no complications Result [facility] Sherman Nogueira MD ANESTHESIA ORDERABLES Final Resu lt * POCT glucose (04/11/2025 8:43 AM CDT) Glucose, POC 84 70 - 199 mg/dL Blood 04/11/2025 8:43 AM CDT 04/11/2025 8:43 AM CDT Romeo Oropeza MD LAB POCT ORDERABLES - DEV ICE Final Result [facility] Department [place] [address] * XR Pelvis 1 or 2 Views [...] MD LAB BLOOD ORDERABLE S Final Result [facility] Department [place] [address] * Magnesium (04/11/2025 5:21 AM CDT) Magnesium 1.4 1.4 - 2.5 mg/dL Blood 04/11/2025 5:21 AM CDT 04/11/2025 5:44 AM CDT Pradeep Francisco MD LAB BLOOD ORDERABLE S Final Result [facility] Department [place] [address] * (ABNORMAL) Basic metabolic panel (04/11/2025 5:21 AM CDT) Pathologist [facility] Sodium 129(L) 135 - 145 mmol/L Potassium, pl 5.2(H) 3.3 - 4.9 mmol/L [facility] Chloride 91(L) 97 - 110 mmol/L [facility] CO2 27 22 - 32 mmol/L [facility] Anion gap 11 2 - 15 mmol/L [facility] BUN 11 6 - 25 mg/dL [facility] Creatinine 1.85(H) 0.80 - 1.30 mg/dL [facility] Glucose 93 70 - 199 mg/dL [facility] Comment: Interpretive Data Fasting glucose >/= 126 [...] 2022. Calcium 9.0 8.5 - 10.3 mg/dL [facility] Blood 04/11/2025 5:21 AM CDT 04/11/2025 5:44 AM CDT us Pradeep Francisco MD LAB BLOOD ORDERABLE S Final Result [facility] Department [place] [address] * (ABNORMAL) eGFR (04/11/2025 2:39 AM CDT) Pathologist [facility] eGFR 47(L) >=60 mL/min/1. 73 m2 Comment: [...] MD LAB BLOOD ORDERABLE S Final Result [facility] Department [place] [address] * (ABNORMAL) Basic metabolic panel (04/11/2025 2:39 AM CDT) Sodium 130(L) 135 - 145 mmol/L Potassium, pl 4.8 3.3 - 4.9 mmol/L [facility] Chloride 93(L) 97 - 110 mmol/L [facility] CO2 30 22 - 32 mmol/L [facility] Anion gap 7 2 - 15 mmol/L [facility] BUN 9 6 - 25 mg/dL [facility] Creatinine 1.59(H) 0.80 - 1.30 mg/dL [facility] Glucose 102 70 - 199 mg/dL [facility] Comment: Interpretive Data Fasting glucose >/= 126 [...] 2022. Calcium 8.8 8.5 - 10.3 mg/dL [facility] Blood 04/11/2025 2:39 AM CDT 04/11/2025 2:58 AM CDT us Pradeep Francisco MD LAB BLOOD ORDERABLE S Final Result [facility] Department [place] [address] * (ABNORMAL) Urinalysis reflex to microscopic and culture Urine (04/11/2025 2:29 AM CDT) Color, ur Straw Yellow Clarity, ur Clear Clear [facility] Specific gravity, ur 1.008 1.003 - 1.030 [facility] pH, urine 6.5 [facility] Comment: Interpretive Data U rine pH is affected by diet, medications, systemic acid-base disturbances, and renal tubular function. pH may affect urinary stone formation. For example, urine pH below 6.0 may help reduce the tendency for calcium phosphate stones and pH greater than 6.0 may reduce the tendency for uric acid stone formation. Source: [facility] Current Interpretive Data was last revised on 2017 Protein, ur ql Trace Negative [facility] Glucose, ur ql Negative Negative [facility] Ketones, ur Negative Negative [facility] Bilirubin, ur Negative Negative [facility] Blood, ur 2+(A) Negative [facility] Urobilinogen, ur <2.0 <2.0 mg/dL [facility] Nitrite, ur Negative Negative [facility] Leukocyte esterase, ur 1+(A) Negative [facility] UA reflex comment Reflex to microscopic UA will be performed. [facility] Urine 04/11/2025 2:29 AM CDT 04/11/2025 2:39 AM CDT us Pradeep Francisco MD LAB MICROBIOLOGY - GENERAL ORDERABLES Final Result [facility] [place] [address] * (ABNORMAL) Urinalysis, microscopic only (04/11/2025 2:29 AM CDT) WBC, ur 6-10(A) 0 - 5 /HPF RBC, ur 21-50(A) 0 - 2 /HPF [facility] Epithelial cells, squamous, ur 1-5 0 - 5 /HPF [facility] Bacteria, ur Trace(A) [facility] Yeast, ur 2+(A) [facility] Mucous, ur Present(A) [facility] Culture Reflex Comment Reflex conditions for urine culture (WBC >10) not met. [facility] Urine 04/11/2025 2:29 AM CDT 04/11/2025 2:39 AM CDT us Pradeep Francisco MD LAB URINE ORDERABLE S Final Result Performing Organization Address [facility] Co de Phone Number [facility] Department [place] [address] * Check Sample (04/11/2025 12:13 AM CDT) Pathologist [facility] ABO Rh AB Positive [facility] OTHER 04/11/2025 12:1 3 AM CDT 04/11/2025 12:29 AM CDT Rmoeo Oropeza MD LAB BLOOD ORDERABLES Alyssa l Result [facility] [place] [address] [facility] * Sepsis Lactate w/ Reflex (04/10/2025 10:41 PM CDT) Pathologist [facility] Sepsis Lactate 1.5 0.7 - 2.0 mmol/L Blood 04/10/2025 10:4 1 PM CDT 04/10/2025 10:51 PM CDT us Alejandra Conti MD LAB BLOOD ORDERABLES Final Result [facility] [place] [address] * Type and screen (04/10/2025 10:41 PM CDT) ABO Rh AB Positive Kareen, indirect Negative [facility] Blood 04/10/2025 10:4 1 PM CDT 04/10/2025 11:04 PM CDT Alejandra Conti MD LAB BLOOD BANK TEST ORDERA BLES Final Result Performing Organization Address [facility] Co de Phone Number PHYLLIS TRACY [facility] [place] [address] * XR Chest 1 Vw Portable (04/10/2025 [...] 1 view chest radiograph Procedure Note Yari Sood MD - 04/11/2025 EXAMINATION: 1 view chest [...] IMG XR PROCEDURES Final Re sult * CO INSJ TEMP NDWELLG BLADDER CATHETER COMPLICATED (04/10/2025 10:20 PM CDT) Narrative Alejandra Conti MD - 04/10/2025 10:20 PM CDT Alejandra Conti MD 04/11/2025 5:13 PM Bladder Catheterization Date/Time: 04/10/2025 10:20 PM Performed by: Alejandra Conti MD Authorized by: Pradeep Francisco MD [place] Protocol: RN Notified of Procedure: yes Informed [...] BLOOD ORDERABLES Final Result Performing Organization Address City/State/[facility] de Phone Number [facility] [place] [address] * aPTT (04/10/2025 7:54 PM CDT) aPTT [...] BLOOD ORDERABLES Final Result Performing Organization Address [facility] Phone Number [facility]LLIS [facility] [place] [address] * XR Hip Left 1 View (04/10/2025 [...] w/ Reflex (04/10/2025 5:18 PM CDT) Pathologist [facility] Sepsis Lactate 2.8(H) 0.7 - 2.0 mmol/L Blood 04/10/2025 5:18 PM CDT 04/10/2025 5:33 PM CDT Alejandra Conti MD LAB BLOOD ORDERABLES Final Result [facility] Department [place] [address] * eGFR (04/10/2025 5:18 PM CDT) eGFR [...] Conti MD LAB BLOOD ORDERABLES Final Result [facility] Department [place] [address] * Differential, auto (04/10/2025 5:18 PM CDT) Neutrophil abs 6.05 1.50 - 6.50 K/cumm Imm gran abs 0.07 0.00 - 0.10 K/cumm [facility] Lymphocyte abs 2.01 0.80 - 3.30 K/cumm [facility] Monocyte abs 0.62 0.20 - 0.80 K/cumm [facility] Eosinophil abs 0.07 0.00 - 0.50 K/cumm [facility] Basophil abs 0.04 0.00 - 0.10 K/cumm [facility] Neutrophil pct 68.2 % [facility] Comment: Interpretive Data Percent cell count reference ranges are not reported, since discordance with absolute values may lead to misinterpretation of CBC data. Current Interpretive Data was last revised on 2017. Imm gran pct 0.8 % [facility] Comment: Interpretive Data Percent cell count reference ranges are not reported, since discordance with absolute values may lead to misinterpretation of CBC data. Current Interpretive Data was last revised on 2017. Lymphocyte pct 22.7 % [facility] Comment: Interpretive Data Percent cell count reference ranges are not reported, since discordance with absolute values may lead to misinterpretation of CBC data. Current Interpretive Data was last revised on 2017. Monocyte pct 7.0 % [facility] Comment: Interpretive Data Percent cell count reference ranges are not reported, since discordance with absolute values may lead to misinterpretation of CBC data. Current Interpretive Data was last revised on 2017. Eosinophil pct 0.8 % [facility] Comment: Interpretive Data Percent cell count reference ranges are not reported, since discordance with absolute values may lead to misinterpretation of CBC data. Current Interpretive Data was last revised on 2017. Basophil pct 0.5 % [facility] Comment: Interpretive Data Percent cell count reference ranges are not reported, since discordance with absolute values may lead to misinterpretation of CBC data. Current Interpretive Data was last revised on 2017. Blood 04/10/2025 5:18 PM CDT 04/10/2025 5:43 PM CDT us Alejandra Conit MD LAB BLOOD ORDERABLES Final Result [facility] Department [place] [address] * (ABNORMAL) CBC with auto differential (04/10/2025 5:18 PM CDT) WBC 8.86 3.80 - 9.90 K/cumm Hgb 14.6 13.0 - 17.5 g/dL [facility] Hct 39.5 38.9 - 50.3 % [facility] Plt 139(L) 150 - 400 K/cumm [facility] MPV 9.4 9.1 - 12.3 fL [facility] RBC 4.00(L) 4.30 - 5.80 M/cumm [facility] MCV 98.8(H) 81.3 - 96.4 fL [facility] MCH 36.5(H) 27.1 - 33.3 pg [facility] MCHC 37.0(H) 32.3 - 35.7 g/dL [facility] RDW CV 13.1 11.1 - 14.9 % [facility] RDW SD 47.3 35.7 - 48.1 fL [facility] NRBC abs 0.00 0.00 - 0.01 K/cumm [facility] Blood 04/10/2025 5:18 PM CDT 04/10/2025 5:43 PM CDT Alejandra Conti MD LAB BLOOD ORDERABLES Final Result Performing Organization Address [facility] [place] [address] * Protime-INR (04/10/2025 5:18 PM CDT) PT 10.8 10.2 - 13.5 sec INR 0.95 0.90 - 1.20 [facility] Comment: Interpretive data Oral anticoagulant therapeutic ranges: Venous thromboembolism prophylaxis or treatment: 2.0-3.0 CARDIOLOGY Standard range: 2.0-3.0 High-intensity range: 2.5-3.5 Refer to indication-specific guidelines for appropriate target ranges for prosthetic heart valve replacement. Current interpretive data was last revised on 2019. Blood 04/10/2025 5:18 PM CDT 04/10/2025 5:44 PM CDT Alejandra Conti MD LAB BLOOD ORDERABLES Final Result Performing Organization Address [facility] [place] [address] * (ABNORMAL) Ethanol (04/10/2025 5:18 PM CDT) Ethanol 39(H) <=10 mg/dL Comment: Interpretive Data Legal limit of intoxication > or = 80 mg/dL Levels > or = 400 mg/dL are potentially TOXIC. Current interpretive data was last revised on 2018. Blood 04/10/2025 5:18 PM CDT 04/10/2025 5:43 PM CDT Alejandra Conti MD LAB BLOOD ORDERABLES Final Result Performing Organization Address [facility] Phone Number PHYLLIS [facility] One [facility] Department [place] [address] * (ABNORMAL) Comprehensive metabolic panel (04/10/2025 5:18 PM CDT) Sodium 127(L) 135 - 145 mmol/L Potassium, pl 4.4 3.3 - 4.9 mmol/L [facility] Chloride 86(L) 97 - 110 mmol/L [facility] CO2 30 22 - 32 mmol/L [facility] Anion gap 11 2 - 15 mmol/L [facility] BUN 7 6 - 25 mg/dL [facility] Creatinine 0.96 0.80 - 1.30 mg/dL [facility] Glucose 110 70 - 199 mg/dL [facility] Comment: Interpretive Data Fasting glucose >/= 126 [...] 2022. Calcium 9.7 8.5 - 10.3 mg/dL [facility] Bilirubin, total 0.7 0.1 - 1.2 mg/dL [facility] Protein, pl 7.0 6.5 - 8.5 g/dL [facility] Albumin 3.9 3.5 - 5.0 g/dL [facility] Alk phos 119 40 - 130 Units/L [facility] ALT 22 7 - 55 Units/L [facility] AST 31 10 - 50 Units/L [facility] Blood 04/10/2025 5:18 PM CDT 04/10/2025 5:43 PM CDT us Alejandra Conti MD LAB BLOOD ORDERABLES Final Result [facility]IS [facility] Javier [facility] Department [place] [address] from Last 3 Months Insurance [facility] Address: [place] [address] [facility] MEDICARE ADVANTAGE [facility] Address: [place] [address] [facility] Address: [facility] [address] [place] [address] Advance Directives For more information, please contact: [phone] * Full Code (Latest Code Status on File) Date Activated Date Inactivated Comments 04/11/2025 12:38 PM 04/19/2025 11:09 PM Care Teams Classification Clerk Relationship Specialty Start Date End Date Paco Allen DO [address] [place] [id number] PCP - General Internal Medicine 05/06/25
[2025-05-11 14:46] LABS: Hematocrit 34.8 % (42.0-52.0); Hemoglobin 11.5 g/dL (14.0-18.0); Immature Granulocyte Percent A 0.3 % (0-0.5); Lymphocytes Absolute Auto 1.91 K/mm3 (0.9-3.2); Mean Corpuscular HGB Conc 33.0 g/dl (32-36); Mean Corpuscular Hemoglobin 33.2 pg (26-34); Mean Corpuscular Volume 100.6 fl (80-100); Nucleated Red Blood Cells Absolute Auto 0.000 K/mm3 (0.0-0.012); Nucleated Red Blood Cells Perc 0.0 % (0.0-0.2); Platelet Count Result 165 k/mm3 (150-375); Red Blood Count 3.46 M/mm3 (4.6-6.20); White Blood Count 7.0 K/mm3 (4.5-10.0)
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
[2025-05-11 14:57] LABS: INR 1.0; Prothrombin Time 13.4 Seconds (11.1-14.7)
[2025-05-11 14:58] LABS: Partial Thromboplastin Time 27.9 Seconds (22.3-36.8)
[2025-05-11 15:08] LABS: Alanine Aminotransferase 83 U/L (6-50); Albumin Level 3.7 g/dL (3.5-5.1); Alkaline Phosphatase 275 U/L (38-126); Anion Gap 7 mmol/L (4-12); Aspartate Amino Transferase 116 U/L (17-59); Bilirubin,Total 1.3 mg/dL (0.2-1.3); Blood Urea Nitrogen 14 mg/dL (9-20); CRP 7.4 mg/dL (<1.0); Calcium 9.8 mg/dL (8.4-10.2); Carbon Dioxide 31 mmol/L (22-30); Chloride 99 mmol/L (98-107); Estimated CRCL calculation 68 ml/min; Estimated Glomerular Filt Rate > 60; Glucose 115 mg/dL (65-110); Potassium 4.0 mmol/L (3.4-5.0); Sodium 137 mmol/L (137-145); Total Protein 7.4 g/dL (6.3-8.2)
[2025-05-11 15:09] LABS: Hemoglobin A1C 4.2 % (<5.7); NT Pro B Type Natriuretic Pept 866 pg/mL (19.9-100)
--- NOTE | 2025-05-11 15:45 | PCRCNOTE ---
PT. HAD NOT BEEN AVAILABLE WHEN THERAPIST CAME TO DRAW ABG.
[2025-05-11 16:07] LABS: Add Urine Microscopic? YES; Appearance Urine Clear (Clear); Glucose Urine UA Negative (Negative); Leukocyte Esterase Ur 2+ LEU/UL (Negative); Need Manual Microscopic Reviewed; Nitrate Urine Negative (Negative); Specific Grav Ur 1.017 (1.001-1.035)
[2025-05-11 16:09] LABS: Alveolar/Arterial O2 Gradient 29.0 mmHg; Carboxyhemoglobin 2.4 % THb (0-2.0); Fractional Inspired Oxygen 21 %; HCO3 ABG 30.4 mEq/l (22.0-26.0); Methemoglobin ABG 0.3 %THb (0-1.5); Oxygen Content ABG 14.0 %vol (16.0-22.0); Oxygen Saturation ABG 94.1 % (95.0-100.0); PCO2 ABG 44.5 mmHg (35.0-45.0); PO2 ABG 67.4 mmHg (80.0-100.0); PO2 FiO2 Ratio Arterial Blood 3.21 %; Reduced Hemoglobin 6.8 %THb (0-5.0)
[2025-05-11 16:10] LABS: Liters per Minute 0.0 LPM; Site Drawn RIGHT BRACHIAL
[2025-05-11 16:15] LABS: Cannabinoid Screen Urine Negative (Negative)
[2025-05-11] MEDS: CEFEPIME 2 GM in SODIUM CHLORIDE 0.9% IV 50 ML 100 ML IVPB (16:46)
[2025-05-11] MEDS: VANCOMYCIN 1,750 MG/NS 500 ML 1,750 MG/500 ML BAG 250 MG IVPB (16:55)
--- NOTE | 2025-05-11 20:13 | ADMGEN ---
This patient, Francis Montes, was admitted to [facility] Surg Room 304-02. Patient/family oriented to hospital policies and general routines including ID bracelet, bed and alarms, visiting hours, pain management, procedures, bathroom and other care routines, personal items, smoking policy, room service/diet, and visiting hours. Information on how to activate the Rapid Response Team has been discussed. Patient/Family are encouraged to report perceived risks to care and to ask questions if they do not understand what they are told or what they should do.
--- NOTE | 2025-05-11 21:52 | PM.IMHP ---
H&P: HPI History of Present Illness Date/Time: 05/11/25 21:52 Chief Complaint: Foot Wounds Narrative: 69 y/o M with PMH of HLD, dysphagia, chronic respiratory failure on home O2, alcoholic cirrhosis, anemia, diabetes, COPD, hepatitis-A, PVD, and thrombocytopenia presents here with bilateral foot wounds. The patient presents here from home on 05/11 for further evaluation of bilateral foot wounds. The patient and the patient's provided the following history. The patient sustained a left hip fracture approximately 1 month ago and underwent surgery at [facility]. He was then discharged to [facility] for rehab. He was discharged from that facility yesterday (05/10). While at that facility the patient was reportedly rubbing his feet against the bottom frame of the bed per his and she 1st noticed he had developed wounds to his bilateral feet around 2 days ago/today. The patient has a history of diabetes, however no longer considered DM and no longer on medications. She additionally reports he has been more lethargic and sleeping more than usual since his arrival back home from the rehab facility. He denies any alcohol use since being discharged home from [facility], believes the last time he drank was before he was seen at the OSH for his hip. He reports chills and discomfort in his feet. Denies fever, body aches, nausea, vomiting, or diarrhea. Initial VS at presentation: 98.2? F, HR 94, R 18, 128/75, and 99% on RA. ED workup showed: No leukocytosis, hemoglobin 11.5, and normal coags, no significant abnormalities on ABG, no significant electrolyte derangements, creatinine 0.95 and GFR >60, glucose 115, lactic 1.6, CRP 7.4, BNP 866, and UA equivocal for infection. UDS positive for barbiturates. Head CT showed no acute intracranial abnormality. Foot XR (R) showed no acute fracture or malalignment. Foot XR (L) showed osteomyelitis, osseous destruction noted of the distal aspect of the distal phalanx 1st digit. Review of Systems Review of Systems: All systems reviewed & are unremarkable except as noted in HPI and below PMFSH Past Medical History Medical History (Updated 05/11/25 @ 23:20 by Sharri Montesinos, MELIZA) PAF (paroxysmal atrial fibrillation) Aortic stenosis Pure hypercholesterolemia Dysphagia Toxic metabolic encephalopathy Acute metabolic encephalopathy Fracture of manubrium Fracture of lamina of cervical vertebra Ribs, multiple fractures Sternal fracture Chronic respiratory failure with hypoxia, on home oxygen therapy Occult blood in stools Acute on chronic anemia Alcohol withdrawal seizure Rotator cuff dysfunction Peripheral neuropathy COPD (chronic obstructive pulmonary disease) Hepatitis A Gout Peripheral vascular disease Portal venous hypertension Xerosis cutis Onychomycosis Alcohol dependence Nicotine dependence Alcoholic cirrhosis Chronic obstructive pulmonary disease, unspecified Depression with anxiety Stasis dermatitis of both legs Thrombocytopenia Surgical History Surgical History Status post left rotator cuff repair (~12/08/23) History of colonoscopy with polypectomy (03/2018) History of cystoscopy S/P TURP (status post transurethral resection of prostate) Family History Family History Mother Carcinoma of colon, Onset Age: 77 Father Diabetes mellitus Sibling Diabetes mellitus Social History Social History Social History: Code status: Full code Surrogate decision maker: Smoking packs per day: 0.5 Smoking cigarettes per day: 10.0 Years smoked: 25 Smoking pack-years: 12.50 Smoking status: Former smoker Tobacco type: cigarettes Second hand tobacco smoke exposure: No Smoking end date: 03/31/25 Additional smoking assessment comments: patient stated he smoked on and off for most of his life. Alcohol intake: current Drinks per week: 1 Alcohol use details: The patient drinks up to a 12 pack of beer per day. Substance use: never Substance use type: does not use Do You Feel Safe in your Home?: Yes Lack of Transportation: No Lack of Food: Never True Current Housing: I Have Housing Concerned About Future Housing: No Difficulty Paying Gas/Electric Bills: No Difficulty Paying for Meds: No Currently Unemployed: No Education: High School Diploma/GED Difficulty w/ Childcare or Family Care: No Living arrangements: with family Additional living arrangements comments: He lives with his of 33 years. They raised 3 children. 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 Gender identity (if verbalized by the patient): Male Sexual Orientation (if Verbalized by the Patient): Straight or Heterosexual Spiritual care concerns: No Meds Home Medications and Allergies Home Medications ?Medication ?Instructions ?Recorded ?Confirmed ?Type multivitamin 1 tablet PO DAILY 03/25/21 05/11/25 History aspirin 81 mg chewable tablet 81 mg PO DAILY@0800 #30 tabs 02/13/24 05/11/25 Rx (Children's Aspirin) folic acid 1 mg tablet 1 mg PO DAILY #30 tabs 02/13/24 05/11/25 Rx buspirone 10 mg tablet 10 mg PO Q12HR #180 tabs 07/02/24 05/11/25 Rx gabapentin 600 mg tablet 600 mg PO TID #270 tabs 09/10/24 05/11/25 Rx levetiracetam 500 mg tablet 500 mg PO Q12HR #180 tabs 09/10/24 05/11/25 Rx (Keppra) atorvastatin 10 mg tablet 10 mg PO DAILY #90 tabs 10/29/24 05/11/25 Rx albuterol sulfate 90 mcg/actuation 1 puff inhalation Q4H PRN 12/12/24 05/11/25 History aerosol inhaler (Ventolin HFA) shortness of breath or wheezing calcium carbonate 600 mg PO DAILY 12/12/24 05/11/25 History cholecalciferol (vitamin D3) 125 125 mcg PO DAILY 12/12/24 05/11/25 History mcg (5,000 unit) capsule duloxetine 60 mg capsule,delayed 60 mg PO DAILY 12/12/24 05/11/25 History release mecobalamin (vitamin B12) 1,000 2,000 mcg PO .HS 12/12/24 05/11/25 History mcg chewable tablet mecobalamin (vitamin B12) 2,500 2,500 mcg PO DAILY 12/12/24 05/11/25 History mcg chewable tablet furosemide 20 mg tablet 20 mg PO DAILY #90 tabs 01/07/25 05/11/25 Rx sodium chloride 1,000 mg soluble 1,000 mg PO DAILY #90 tabs 01/16/25 05/11/25 Rx tablet umeclidinium 62.5 mcg-vilanterol 1 inh inhalation DAILY 01/24/25 05/11/25 History 25 mcg/actuation powdr for inhalation (Anoro Ellipta) metoprolol tartrate 25 mg tablet 12.5 mg (1/2 x 25 mg) PO BID #45 03/11/25 05/11/25 Rx tabs allopurinol 300 mg tablet 300 mg PO DAILY #90 tabs 05/06/25 05/11/25 Rx Allergies Allergy/AdvReac Type Severity Reaction Status Date / Time No Known Allergies Allergy Verified 01/24/25 10:04 Vital Signs Vital Signs - 24 hr 05/11/25 12:33 05/11/25 14:42 05/11/25 15:30 Temperature 98.2 F Pulse Rate 94 97 40 L Respiratory Rate 18 16 18 Blood Pressure 128/75 123/58 L 108/66 Pulse Oximetry 99 94 92 Oxygen Delivery Room Air 05/11/25 16:15 05/11/25 17:00 05/11/25 17:45 Temperature Pulse Rate 82 61 97 Respiratory Rate 18 16 18 Blood Pressure 134/62 141/84 H 119/99 H Pulse Oximetry 88 L 91 Oxygen Delivery 05/11/25 18:30 05/11/25 18:50 Temperature 98.3 F Pulse Rate 107 H Respiratory Rate 20 Blood Pressure 134/85 Pulse Oximetry 92 Oxygen Delivery Exam Const: General: comfortable and no acute distress Other: , male, elderly appearing, chronically ill-appearing HENMT: Face/Nose/Sinus: Normal nares present Mouth: Yes moist mucous membranes Eyes: General: appearance normal, both eyes and all related structures Sclera: sclerae normal Pupils: Equal, round and reactive pupils present EOM: EOMs intact bilaterally Resp: Effort & Inspection: normal respiratory effort Auscultation: clear to auscultation bilaterally Cardio: Rate: regular rate Rhythm: regular rhythm Other: S1-S2 present without murmur, rub, ectopy GI: Other: Abdomen soft, nondistended, nontender. Normoactive bowel sounds in all quadrants. Skin: General skin exam: normal color and no rashes or lesions noted Wounds: wounds noted Other: Positive wound to left 1st toe pad with purulent drainage at the center of the ulcer, mild foul odor. Surrounding callus with diffuse erythema and swelling. Small ulcerative wound to the left 1st toe MTP. Small ulcerative wound to tip of right 2nd and 3rd toes with surrounding induration. Scant erythema. Ulceration to left posterior heel without drainage, no signs of infection. Neuro: Speech: normal speech Motor exam (neuro): 5/5 motor strength present throughout Sensory Exam: normal sensation Other: A&O x3, disorientated to year. Resting tremor noted to mouth and bilateral upper extremities, worsens with intention. Extrem: General: normal exam except as noted Other: Hyper pigmentation noted to bilateral lower extremities, DP pulses poorly palpable. Psych: Mental Status: mental status grossly normal Other: Fair to poor insight judgment at present, anxious. H&P: Results Labs Labs: Short CBC 05/11/25 Range/Units 14:39 WBC 7.0 (4.5-10.0) K/mm3 Hgb 11.5 L (14.0-18.0) g/dL Hct 34.8 L (42.0-52.0) % Plt Count 165 (150-375) k/mm3 BMP 05/11/25 14:39 Sodium 137 Potassium 4.0 Chloride 99 Carbon Dioxide 31 H BUN 14 D Creatinine 0.95 Glucose 115 H Calcium 9.8 Liver Function 05/11/25 Range/Units 14:39 Total Bilirubin 1.3 (0.2-1.3) mg/dL AST 116 H (17-59) U/L ALT 83 H (6-50) U/L Alkaline Phosphatase 275 H (38-126) U/L Albumin 3.7 (3.5-5.1) g/dL Urine 05/11/25 Range/Units 15:41 Urine Color Dark yellow (Yellow) Urine Appearance Clear (Clear) Urine pH 6.0 (5.0-9.0) Ur Specific [place] 1.017 (1.001-1.035) Urine Protein Trace (Negative) mg/dL Urine Glucose (UA) Negative (Negative) mg/dL Assessment and Plan Assessment and plan (1) Ulcer of toe of left foot: Qualifiers: Non-pressure ulcer stage: with necrosis of bone Qualified Code(s): L97.524 - Non-pressure chronic ulcer of other part of left foot with necrosis of bone Code(s): L97.529 - Non-pressure chronic ulcer of other part of left foot with unspecified severity Status: Acute Assessment and Plan: - ulceration to left first toe - Foot XR, L: Osteomyelitis detailed above - Foot XR, R: No acute fracture or malalignment. - General Surgery consulted - wound RN consulted - started on Vancomycin, Cefepime and Flagyl on 05/11 - check FLORES (2) Ulcer of toe of right foot: Qualifiers: Non-pressure ulcer stage: unspecified non-pressure ulcer stage Qualified Code(s): L97.519 - Non-pressure chronic ulcer of other part of right foot with unspecified severity Code(s): L97.519 - Non-pressure chronic ulcer of other part of right foot with unspecified severity Status: Acute Assessment and Plan: - see above - ulceration noted to right 2nd and 3rd toe (3) Alcohol dependence: Qualifiers: Substance use status: unspecified alcohol-induced disorder Qualified Code(s): F10.29 - Alcohol dependence with unspecified alcohol-induced disorder Code(s): F10.20 - Alcohol dependence, uncomplicated Status: Chronic Assessment and Plan: - last ETOH intake 1 month ago prior to admission at [facility] for a hip fracture - facial tremor and BUE tremor noted on exam (4) Cirrhosis of liver: Qualifiers: Hepatic cirrhosis type: alcoholic cirrhosis Ascites presence: without ascites Qualified Code(s): K70.30 - Alcoholic cirrhosis of liver without ascites Code(s): K74.60 - Unspecified cirrhosis of liver Status: Chronic Assessment and Plan: - secondary to ETOH, no longer drinking - continue folic acid, multivitamin, and B12 (5) COPD (chronic obstructive pulmonary disease): Qualifiers: COPD type: unspecified COPD Qualified Code(s): J44.9 - Chronic obstructive pulmonary disease, unspecified Code(s): J44.9 - Chronic obstructive pulmonary disease, unspecified Status: Chronic Assessment and Plan: - continue albuterol inhaler p.r.n. (6) Hypertension: Qualifiers: Hypertension type: primary hypertension Qualified Code(s): I10 - Essential (primary) hypertension Code(s): I10 - Essential (primary) hypertension Status: Chronic Assessment and Plan: - chronic, currently 153/87 - continue home medications: Metoprolol - monitor Plan Diet: Heart healthy GI Prophylaxis: N/a DVT Prophylaxis: Lovenox SQ IV fluids: None Lines/Tubes: Peripheral IV Code Status: Full code Quality VTE Prophylaxis VTE prophylaxis: pharmacologic ordered Hospitalist MIPS Advance Care Plan I have confirmed that the patient's Advanced Care Plan is present, code status is documented, or surrogate decision maker is listed in patient medical record.: Yes Medication Reconciliation I have utilized all available resources to obtain, update and review the patients current medications (includes all prescriptions, OTC, herbals, cannabis, and nutritional supplements).: Yes
[2025-05-11] MEDS: metroNIDAZOLE 500 MG/ISO 100ML 500 MG/100 ML BAG 100 MG IVPB (23:18)
[2025-05-12] VITALS (10 sets, daily range): BP systolic 114–136; BP diastolic 51–62; PULSE 82–105; RESP 16–22; TEMP 36.4–37.2; O2SAT 99–100
[2025-05-12] MEDS: METOPROLOL TARTRATE 12.5 MG TABLET PO ×3 (00:43→21:18)
[2025-05-12] MEDS: ALBUTEROL SULFATE (*SP) AEROSOL 1 PUFF INHALATION (01:04)
[2025-05-12] MEDS: CEFEPIME 2 GM in SODIUM CHLORIDE 0.9% IV 50 ML 100 ML IVPB ×2 (04:16→17:12)
[2025-05-12] MEDS: metroNIDAZOLE 500 MG/ISO 100ML 500 MG/100 ML BAG 100 MG IVPB ×3 (05:01→21:15)
[2025-05-12 06:54] LABS: Estimated CRCL calculation 76 ml/min; Estimated Glomerular Filt Rate > 60
[2025-05-12] MEDS: UMECLIDINIUM/VILANTEROL 62.5-25 MCG ELLIPTA 1 PUFF INHALATION (07:28)
[2025-05-12] MEDS: ENOXAPARIN 40 MG/0.4 ML SYRINGE SUB-Q (08:47)
[2025-05-12] MEDS: GABAPENTIN 300 MG CAPSULE 600 MG PO ×3 (08:47→17:12)
[2025-05-12] MEDS: CALCIUM CARBONATE (OSCAL) 500 MG TABLET PO (08:48)
[2025-05-12] MEDS: DULoxetine HCL 60 MG CAPSULE.DR PO (08:48)
[2025-05-12] MEDS: CHOLECALCIFEROL (VITAMIN D3) 125 MCG (5,000 UNITS) TABLET PO (08:48)
[2025-05-12] MEDS: CYANOCOBALAMIN 1,000 MCG TABLET 2000 MCG PO ×2 (08:48→21:17)
[2025-05-12] MEDS: FOLIC ACID 1 MG TABLET PO (08:49)
[2025-05-12] MEDS: FUROSEMIDE 20 MG TABLET PO (08:49)
[2025-05-12] MEDS: MULTIVITAMINS THERAPEUTIC TAB (*BKC) 1 TABLET PO (08:49)
[2025-05-12] MEDS: ATORVASTATIN 10 MG TABLET PO (08:49)
[2025-05-12] MEDS: ASPIRIN 81 MG CHEWABLE TABLET PO (08:49)
[2025-05-12] MEDS: SODIUM CHLORIDE 1 GM TABLET PO (08:49)
[2025-05-12] MEDS: CYANOCOBALAMIN 500 MCG TABLET PO (08:49)
--- NOTE | 2025-05-12 12:20 | PM.CNGS ---
Assessment and Plan Assessment and plan (1) Acute osteomyelitis of toe of left foot: Code(s): M86.172 - Other acute osteomyelitis, left ankle and foot Status: Acute Assessment and Plan: long discussion with patient and significant other regarding osteomyelitis, patient wants to proceed with IV antibiotics and conservative management at this point, we will get ID consultation and PICC line, wound care consultation as well for this wound as well as right foot wounds History of Present Illness Consult details Consult date: 05/12/25 Reason for consult: wound care Requesting physician: Mini Bender MD Narrative: The patient is a 69-year-old male presenting to the emergency department with a worsening wound on his left 1st toe. He reports that the wound has been present over the last week or so and has been steadily worsening. The patient reports that he has been largely in bed status post recent hip surgery. Patient reports that his feet were rubbing on a metal piece at the rehab facility. The patient was discharged 05/10 and his noted that these wounds on his toes seem to be worsening. The patient reports that there has been purulent discharge from the left toe wound. The patient denies previous wound issues. Review of Systems Review of Systems: All systems reviewed & are unremarkable except as noted in HPI and below PMFSH Past Medical History Medical History PAF (paroxysmal atrial fibrillation) Aortic stenosis Pure hypercholesterolemia Dysphagia Toxic metabolic encephalopathy Acute metabolic encephalopathy Fracture of manubrium Fracture of lamina of cervical vertebra Ribs, multiple fractures Sternal fracture Chronic respiratory failure with hypoxia, on home oxygen therapy Occult blood in stools Acute on chronic anemia Alcohol withdrawal seizure Rotator cuff dysfunction Peripheral neuropathy COPD (chronic obstructive pulmonary disease) Hepatitis A Gout Peripheral vascular disease Portal venous hypertension Xerosis cutis Onychomycosis Alcohol dependence Nicotine dependence Alcoholic cirrhosis Chronic obstructive pulmonary disease, unspecified Depression with anxiety Stasis dermatitis of both legs Thrombocytopenia Surgical History Surgical History Status post left rotator cuff repair (~12/08/23) History of colonoscopy with polypectomy (03/2018) History of cystoscopy S/P TURP (status post transurethral resection of prostate) Family History Family History Mother Carcinoma of colon, Onset Age: 77 Father Diabetes mellitus Sibling Diabetes mellitus Social History Social History Social History: Code status: Full code Surrogate decision maker: Smoking packs per day: 0.5 Smoking cigarettes per day: 10.0 Years smoked: 25 Smoking pack-years: 12.50 Smoking status: Former smoker Tobacco type: cigarettes Second hand tobacco smoke exposure: No Smoking end date: 03/31/25 Additional smoking assessment comments: patient stated he smoked on and off for most of his life. Alcohol intake: current Drinks per week: 1 Alcohol use details: The patient drinks up to a 12 pack of beer per day. Substance use: never Substance use type: does not use Do You Feel Safe in your Home?: Yes Lack of Transportation: No Lack of Food: Never True Current Housing: I Have Housing Concerned About Future Housing: No Difficulty Paying Gas/Electric Bills: No Difficulty Paying for Meds: No Currently Unemployed: No Education: High School Diploma/GED Difficulty w/ Childcare or Family Care: No Living arrangements: with family Additional living arrangements comments: He lives with his of 33 years. They raised 3 children. 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 Gender identity (if verbalized by the patient): Male Sexual Orientation (if Verbalized by the Patient): Straight or Heterosexual Spiritual care concerns: No Meds Home Medications and Allergies Home Medications ?Medication ?Instructions ?Recorded ?Confirmed ?Type multivitamin 1 tablet PO DAILY 03/25/21 05/11/25 History aspirin 81 mg chewable tablet 81 mg PO DAILY@0800 #30 tabs 02/13/24 05/11/25 Rx (Children's Aspirin) folic acid 1 mg tablet 1 mg PO DAILY #30 tabs 02/13/24 05/11/25 Rx buspirone 10 mg tablet 10 mg PO Q12HR #180 tabs 07/02/24 05/11/25 Rx gabapentin 600 mg tablet 600 mg PO TID #270 tabs 09/10/24 05/11/25 Rx levetiracetam 500 mg tablet 500 mg PO Q12HR #180 tabs 09/10/24 05/11/25 Rx (Keppra) atorvastatin 10 mg tablet 10 mg PO DAILY #90 tabs 10/29/24 05/11/25 Rx albuterol sulfate 90 mcg/actuation 1 puff inhalation Q4H PRN 12/12/24 05/11/25 History aerosol inhaler (Ventolin HFA) shortness of breath or wheezing calcium carbonate 600 mg PO DAILY 12/12/24 05/11/25 History cholecalciferol (vitamin D3) 125 125 mcg PO DAILY 12/12/24 05/11/25 History mcg (5,000 unit) capsule duloxetine 60 mg capsule,delayed 60 mg PO DAILY 12/12/24 05/11/25 History release mecobalamin (vitamin B12) 1,000 2,000 mcg PO .HS 12/12/24 05/11/25 History mcg chewable tablet mecobalamin (vitamin B12) 2,500 2,500 mcg PO DAILY 12/12/24 05/11/25 History mcg chewable tablet furosemide 20 mg tablet 20 mg PO DAILY #90 tabs 01/07/25 05/11/25 Rx sodium chloride 1,000 mg soluble 1,000 mg PO DAILY #90 tabs 01/16/25 05/11/25 Rx tablet umeclidinium 62.5 mcg-vilanterol 1 inh inhalation DAILY 01/24/25 05/11/25 History 25 mcg/actuation powdr for inhalation (Anoro Ellipta) metoprolol tartrate 25 mg tablet 12.5 mg (1/2 x 25 mg) PO BID #45 03/11/25 05/11/25 Rx tabs allopurinol 300 mg tablet 300 mg PO DAILY #90 tabs 05/06/25 05/11/25 Rx Allergies Allergy/AdvReac Type Severity Reaction Status Date / Time No Known Allergies Allergy Verified 01/24/25 10:04 Vital Signs Vital Signs - 24 hr 05/11/25 12:33 05/11/25 14:42 05/11/25 15:30 Temperature 36.8 C Pulse Rate 94 97 40 L Respiratory Rate 18 16 18 Blood Pressure 128/75 123/58 L 108/66 Pulse Oximetry 99 94 92 Oxygen Delivery Room Air Oxygen Flow Rate 05/11/25 16:15 05/11/25 17:00 05/11/25 17:45 Temperature Pulse Rate 82 61 97 Respiratory Rate 18 16 18 Blood Pressure 134/62 141/84 H 119/99 H Pulse Oximetry 88 L 91 Oxygen Delivery Oxygen Flow Rate 05/11/25 18:30 05/11/25 18:50 05/11/25 21:54 Temperature 36.8 C 37.2 C Pulse Rate 107 H 86 Respiratory Rate 20 16 Blood Pressure 134/85 153/87 H Pulse Oximetry 92 97 Oxygen Delivery Oxygen Flow Rate 05/11/25 22:03 05/12/25 00:43 05/12/25 01:05 Temperature Pulse Rate 86 96 Respiratory Rate 22 H Blood Pressure Pulse Oximetry 100 Oxygen Delivery Nasal Cannula Oxygen Flow Rate 2 05/12/25 06:00 05/12/25 07:30 05/12/25 08:00 Temperature 37.2 C Pulse Rate 105 H 92 Respiratory Rate 18 20 Blood Pressure 114/58 L Pulse Oximetry 100 100 Oxygen Delivery Nasal Cannula Oxygen Flow Rate 2 05/12/25 08:49 Temperature Pulse Rate 82 Respiratory Rate Blood Pressure Pulse Oximetry Oxygen Delivery Oxygen Flow Rate Exam Const: General: cooperative, comfortable and no acute distress HENMT: Head: normal to inspection, normocephalic and atraumatic Eyes: General: appearance normal, both eyes and all related structures Neck: Neck: normal visual inspection, full ROM and no lymphadenopathy Resp: Auscultation: clear to auscultation bilaterally Cardio: Rate: regular rate Rhythm: regular rhythm GI: Inspection: normal to inspection Skin: General skin exam: normal color and no rashes or lesions noted Neuro: General: patient oriented x3 and CN's II-XI intact bilaterally Extrem: Other: Left 1st toe with a 3 cm wound with surrounding eschar at the distal plantar surface, punctate opening with purulent drainage right 2nd and 3rd toes with small wounds covered with eschar, no drainage Results Labs 05/11/25 14:39 05/12/25 05:25 Labs: Abnormal lab results 05/11/25 05/11/25 05/11/25 Range/Units 14:39 15:41 16:05 RBC 3.46 L (4.6-6.20) M/mm3 Hgb 11.5 L (14.0-18.0) g/dL Hct 34.8 L (42.0-52.0) % MCV 100.6 H (80-100) fl RDW 16.4 H (11.5-14.5) % ABG pH 7.453 H (7.350-7.450) ABG pO2 67.4 L (80.0-100.0) mmHg ABG HCO3 30.4 H (22.0-26.0) mEq/l ABG O2 Saturation 94.1 L (95.0-100.0) % ABG O2 Content 14.0 L (16.0-22.0) %vol Carboxyhemoglobin 2.4 H (0-2.0) % THb Reduced Hemoglobin 6.8 H (0-5.0) %THb Total Hemoglobin 11.0 L (12.0-18.0) g/dL Carbon Dioxide 31 H (22-30) mmol/L Glucose 115 H (65-110) mg/dL AST 116 H (17-59) U/L ALT 83 H (6-50) U/L Alkaline Phosphatase 275 H (38-126) U/L C-Reactive Protein 7.4 H (<1.0) mg/dL NT-Pro-B Natriuret Pep 866 H (19.9-100) pg/mL Urine Urobilinogen 2.0 H (<2.0) mg/dL Leukocyte Esterase Rfl 2+ H (Negative) RASHAAD/UL Urine RBC 11-20 H (0-2) /hpf Urine WBC 11-20 H (0-3) /hpf Ur Barbiturates Screen Positive A (Negative) Diabetes panel 05/11/25 05/12/25 Range/Units 14:39 05:25 Sodium 137 (137-145) mmol/L Potassium 4.0 (3.4-5.0) mmol/L Chloride 99 (98-107) mmol/L Carbon Dioxide 31 H (22-30) mmol/L BUN 14 D (9-20) mg/dL Creatinine 0.95 0.86 (0.7-1.3) mg/dL Glucose 115 H (65-110) mg/dL Hemoglobin A1c 4.2 (<5.7) % Calcium 9.8 (8.4-10.2) mg/dL AST 116 H (17-59) U/L ALT 83 H (6-50) U/L Alkaline Phosphatase 275 H (38-126) U/L Total Protein 7.4 (6.3-8.2) g/dL Albumin 3.7 (3.5-5.1) g/dL Calcium panel 05/11/25 Range/Units 14:39 Calcium 9.8 (8.4-10.2) mg/dL Albumin 3.7 (3.5-5.1) g/dL Pituitary panel 05/11/25 05/12/25 Range/Units 14:39 05:25 Sodium 137 (137-145) mmol/L Potassium 4.0 (3.4-5.0) mmol/L Chloride 99 (98-107) mmol/L Carbon Dioxide 31 H (22-30) mmol/L BUN 14 D (9-20) mg/dL Creatinine 0.95 0.86 (0.7-1.3) mg/dL Glucose 115 H (65-110) mg/dL Calcium 9.8 (8.4-10.2) mg/dL Adrenal panel 05/11/25 05/12/25 Range/Units 14:39 05:25 Sodium 137 (137-145) mmol/L Potassium 4.0 (3.4-5.0) mmol/L Chloride 99 (98-107) mmol/L Carbon Dioxide 31 H (22-30) mmol/L BUN 14 D (9-20) mg/dL Creatinine 0.95 0.86 (0.7-1.3) mg/dL Glucose 115 H (65-110) mg/dL Calcium 9.8 (8.4-10.2) mg/dL Total Bilirubin 1.3 (0.2-1.3) mg/dL AST 116 H (17-59) U/L ALT 83 H (6-50) U/L Alkaline Phosphatase 275 H (38-126) U/L Total Protein 7.4 (6.3-8.2) g/dL Albumin 3.7 (3.5-5.1) g/dL All other labs normal. Imaging Additional studies: bilateral foot x-rays reviewed
[2025-05-12] MEDS: VANCOMYCIN 1,250 MG/NS 250 ML 1,250 MG/250 ML BAG 166.67 MG IVPB (13:04)
--- NOTE | 2025-05-12 13:16 | PM.IMPN ---
Progress Note: A&P Assessment and Plan (1) Ulcer of toe of left foot: Qualifiers: Non-pressure ulcer stage: with necrosis of bone Qualified Code(s): L97.524 - Non-pressure chronic ulcer of other part of left foot with necrosis of bone Code(s): L97.529 - Non-pressure chronic ulcer of other part of left foot with unspecified severity Status: Acute Assessment and Plan: - ulceration to left first toe - Foot XR, L: Osteomyelitis detailed above - Foot XR, R: No acute fracture or malalignment. - General Surgery consulted - wound RN consulted - started on Vancomycin, Cefepime and Flagyl on 05/11 - check FLORES - surgery consulted will hold lovenox tonight in case surgery will be scheduled (2) Ulcer of toe of right foot: Qualifiers: Non-pressure ulcer stage: unspecified non-pressure ulcer stage Qualified Code(s): L97.519 - Non-pressure chronic ulcer of other part of right foot with unspecified severity Code(s): L97.519 - Non-pressure chronic ulcer of other part of right foot with unspecified severity Status: Acute Assessment and Plan: - see above - ulceration noted to right 2nd and 3rd toe (3) Alcohol dependence: Qualifiers: Substance use status: unspecified alcohol-induced disorder Qualified Code(s): F10.29 - Alcohol dependence with unspecified alcohol-induced disorder Code(s): F10.20 - Alcohol dependence, uncomplicated Status: Chronic Assessment and Plan: - last ETOH intake 1 month ago prior to admission at [facility] for a hip fracture - facial tremor and BUE tremor noted on exam (4) Cirrhosis of liver: Qualifiers: Hepatic cirrhosis type: alcoholic cirrhosis Ascites presence: without ascites Qualified Code(s): K70.30 - Alcoholic cirrhosis of liver without ascites Code(s): K74.60 - Unspecified cirrhosis of liver Status: Chronic Assessment and Plan: - secondary to ETOH, no longer drinking - continue folic acid, multivitamin, and B12 (5) COPD (chronic obstructive pulmonary disease): Qualifiers: COPD type: unspecified COPD Qualified Code(s): J44.9 - Chronic obstructive pulmonary disease, unspecified Code(s): J44.9 - Chronic obstructive pulmonary disease, unspecified Status: Chronic Assessment and Plan: - continue albuterol inhaler p.r.n. (6) Hypertension: Qualifiers: Hypertension type: primary hypertension Qualified Code(s): I10 - Essential (primary) hypertension Code(s): I10 - Essential (primary) hypertension Status: Chronic Assessment and Plan: - chronic, currently 153/87 - continue home medications: Metoprolol - monitor (7) Smoker: Code(s): F17.200 - Nicotine dependence, unspecified, uncomplicated Status: Acute Assessment and Plan: pt had been smoking since he was 11 years old and about 3 pad, cut way down now offered nicotine patch- refused for now smoking cessation counselling completed Plan Diet: Heart healthy GI Prophylaxis: N/a DVT Prophylaxis: Lovenox SQ IV fluids: None Lines/Tubes: Peripheral IV Code Status: Full code Time Spent With Patient Time with patient: Greater than 35 minutes Subjective Date/time seen: 05/12/25 13:16 Interval history: 69 y/o M with PMH of HLD, dysphagia, chronic respiratory failure on home O2, alcoholic cirrhosis, anemia, diabetes, COPD, hepatitis-A, PVD, and thrombocytopenia presents here with bilateral foot wounds. The patient presents here from home on 05/11 for further evaluation of bilateral foot wounds. The patient and the patient's provided the following history. The patient sustained a left hip fracture approximately 1 month ago and underwent surgery at [facility]. He was then discharged to [facility] for rehab. He was discharged from that facility yesterday (05/10). While at that facility the patient was reportedly rubbing his feet against the bottom frame of the bed per his and she 1st noticed he had developed wounds to his bilateral feet around 2 days ago/today. The patient has a history of diabetes, however no longer considered DM and no longer on medications. She additionally reports he has been more lethargic and sleeping more than usual since his arrival back home from the rehab facility. He denies any alcohol use since being discharged home from [place], believes the last time he drank was before he was seen at the OSH for his hip. He reports chills and discomfort in his feet. Denies fever, body aches, nausea, vomiting, or diarrhea. Initial VS at presentation: 98.2? F, HR 94, R 18, 128/75, and 99% on RA. ED workup showed: No leukocytosis, hemoglobin 11.5, and normal coags, no significant abnormalities on ABG, no significant electrolyte derangements, creatinine 0.95 and GFR >60, glucose 115, lactic 1.6, CRP 7.4, BNP 866, and UA equivocal for infection. UDS positive for barbiturates. Head CT showed no acute intracranial abnormality. Foot XR (R) showed no acute fracture or malalignment. Foot XR (L) showed osteomyelitis, osseous destruction noted of the distal aspect of the distal phalanx 1st digit. Pt reports that he was diabetic at some point but his hga1c improved and he no longer diabetic. he is not on any regimen at home. Surgery consult is placed. Will hold lovenox tonight in case if surgery will be scheduled in am. Review of Systems Review of Systems: All systems reviewed & are unremarkable except as noted in HPI and below Exam Const: General: comfortable and no acute distress Other: , male, elderly appearing, chronically ill-appearing HENMT: Face/Nose/Sinus: Normal nares present Mouth: Yes moist mucous membranes Eyes: General: appearance normal, both eyes and all related structures Sclera: sclerae normal Pupils: Equal, round and reactive pupils present EOM: EOMs intact bilaterally Resp: Effort & Inspection: normal respiratory effort Auscultation: clear to auscultation bilaterally Cardio: Rate: regular rate Rhythm: regular rhythm Other: S1-S2 present without murmur, rub, ectopy GI: Other: Abdomen soft, nondistended, nontender. Normoactive bowel sounds in all quadrants. Skin: General skin exam: normal color, no rashes or lesions noted and wounds noted Wounds: wounds noted Other: Positive wound to left 1st toe pad with purulent drainage at the center of the ulcer, mild foul odor. Surrounding callus with diffuse erythema and swelling. Small ulcerative wound to the left 1st toe MTP. Small ulcerative wound to tip of right 2nd and 3rd toes with surrounding induration. Scant erythema. Ulceration to left posterior heel without drainage, no signs of infection. Neuro: Cranial nerves: Yes Equal, round and reactive pupils present Speech: normal speech Motor exam (neuro): 5/5 motor strength present throughout Sensory Exam: normal sensation Other: A&O x3, disorientated to year. Resting tremor noted to mouth and bilateral upper extremities, worsens with intention. Extrem: General: normal exam except as noted Other: Hyper pigmentation noted to bilateral lower extremities, DP pulses poorly palpable. Psych: Mental Status: mental status grossly normal Other: Fair to poor insight judgment at present, anxious. Objective Data Vital Signs Vital Signs: Vital Signs - 24 hr 05/11/25 14:42 05/11/25 15:30 05/11/25 16:15 Temperature Pulse Rate 97 40 L 82 Respiratory Rate 16 18 18 Blood Pressure 123/58 L 108/66 134/62 Pulse Oximetry 94 92 88 L Oxygen Delivery Oxygen Flow Rate 05/11/25 17:00 05/11/25 17:45 05/11/25 18:30 Temperature Pulse Rate 61 97 107 H Respiratory Rate 16 18 20 Blood Pressure 141/84 H 119/99 H 134/85 Pulse Oximetry 91 92 Oxygen Delivery Oxygen Flow Rate 05/11/25 18:50 05/11/25 21:54 05/11/25 22:03 Temperature 98.3 F 99.0 F Pulse Rate 86 Respiratory Rate 16 Blood Pressure 153/87 H Pulse Oximetry 97 100 Oxygen Delivery Nasal Cannula Oxygen Flow Rate 2 05/12/25 00:43 05/12/25 01:05 05/12/25 06:00 Temperature 98.9 F Pulse Rate 86 96 105 H Respiratory Rate 22 H 18 Blood Pressure 114/58 L Pulse Oximetry 100 Oxygen Delivery Oxygen Flow Rate 05/12/25 07:30 05/12/25 08:00 05/12/25 08:49 Temperature Pulse Rate 92 82 Respiratory Rate 20 Blood Pressure Pulse Oximetry 100 Oxygen Delivery Nasal Cannula Oxygen Flow Rate 2 Intake/Output Intake/Output: Intake & Output 05/09/25 05/10/25 05/11/25 05/12/25 23:59 23:59 23:59 23:59 Intake Total 50 490 Output Total 200 Balance 50 290 Meds/Results Medications: Active Medications Generic Name Dose Route Start Last Admin Trade Name Freq PRN Reason Stop Dose Admin Acetaminophen 650 mg 05/11/25 17:57 Acetaminophen 325 Mg Tablet PO Q4H PRN Mild Pain (1-3) or Fever Albuterol 1 puff 05/11/25 23:16 05/12/25 01:04 Albuterol Sulfate (*Sp) Aerosol 1 Puff INHALATION 1 puff Q4HRT PRN Administration Shortness Of Breath Or Wheezing Allopurinol 300 mg 05/12/25 09:00 05/12/25 08:49 Allopurinol 300 Mg Tablet PO 300 mg DAILY BRENNAN Administration Aspirin 81 mg 05/12/25 08:00 05/12/25 08:49 Aspirin 81 Mg Chewable Tablet PO 81 mg DAILY@0800 BRENNAN Administration Atorvastatin Calcium 10 mg 05/12/25 09:00 05/12/25 08:49 Atorvastatin 10 Mg Tablet PO 10 mg DAILY BRENNAN Administration Buspirone HCl 10 mg 05/12/25 09:00 05/12/25 08:49 Buspirone Hcl 10 Mg Tablet PO 10 mg Q12HR BRENNAN Administration Calcium Carbonate 500 mg 05/12/25 09:00 05/12/25 08:48 Calcium Carbonate (Oscal) 500 Mg Tablet PO 500 mg QAM BRENNAN Administration Cyanocobalamin 2,000 mcg 05/12/25 21:00 Cyanocobalamin 1,000 Mcg Tablet PO QHS BRENNAN Cyanocobalamin 2,000 mcg 05/12/25 09:00 05/12/25 08:48 Cyanocobalamin 1,000 Mcg Tablet PO 2,000 mcg QAM BRENNAN Administration Cyanocobalamin 500 mcg 05/12/25 09:00 05/12/25 08:49 Cyanocobalamin 500 Mcg Tablet PO 500 mcg QAM BRENNAN Administration Dextrose 12.5 gm 05/11/25 17:57 Dextrose 50% 25 Gm/50 Ml Syringe IV PUSH PRN PRN Hypoglycemia Protocol Duloxetine HCl 60 mg 05/12/25 09:00 05/12/25 08:48 Duloxetine Hcl 60 Mg Capsule.Dr PO 60 mg DAILY BRENNAN Administration Enoxaparin Sodium 40 mg 05/12/25 09:00 05/12/25 08:47 Enoxaparin 40 Mg/0.4 Ml Syringe SUB-Q 40 mg DAILY BRENNAN Administration Folic Acid 1 mg 05/12/25 09:00 05/12/25 08:49 Folic Acid 1 Mg Tablet PO 1 mg DAILY BRENNAN Administration Furosemide 20 mg 05/12/25 09:00 05/12/25 08:49 Furosemide 20 Mg Tablet PO 20 mg DAILY BRENNAN Administration Gabapentin 600 mg 05/12/25 09:00 05/12/25 13:04 Gabapentin 300 Mg Capsule PO 600 mg TID BRENNAN Administration Glucagon 1 mg 05/11/25 17:57 Glucagon For Inj 1 Mg Vial IM PRN PRN Hypoglycemia Protocol Glucose 15 gm 05/11/25 17:57 Glucose Oral Gel 15 Gm Of Glucse In 37.5 Gm Tube PO PRN PRN Hypoglycemia Protocol Cefepime HCl 2 gm/ Sodium 50 mls @ 100 mls/hr 05/12/25 05:00 05/12/25 04:46 Chloride IVPB Infused Q12H BRENNAN Infusion Vancomycin HCl 1,250 mg in 250 mls @ 166.667 mls/hr 05/12/25 12:00 05/12/25 13:04 Vancomycin 1,250 Mg/Ns 250 Ml IVPB 166.67 mls/hr Q18H BRENNAN Administration Dextrose 1,000 mls @ 100 mls/hr 05/11/25 17:57 Dextrose 5% 1,000 Ml IVPB PRN PRN Hypoglycemia Protocol Metronidazole 500 mg in 100 mls @ 100 mls/hr 05/11/25 23:05 05/12/25 06:01 Flagyl 500 Mg/Iso Soln 100 Ml IVPB Infused Q8HR BRENNAN Infusion Levetiracetam 500 mg 05/11/25 23:30 05/12/25 08:52 Levetiracetam 500 Mg Tablet PO 500 mg Q12HR BRENNAN Administration Lidocaine HCl 5 ml 05/13/25 08:00 Lidocaine 1% Pf Inj 5 Ml Vial INFILTRATE 05/13/25 08:01 ONCE ONE Metoprolol Tartrate 12.5 mg 05/11/25 23:30 05/12/25 08:49 Metoprolol Tartrate 12.5 Mg Tablet PO 12.5 mg Q12HR BRENNAN Administration Multivitamins Therapeutic 1 tablet 05/12/25 09:00 05/12/25 08:49 Multivitamins Therapeutic Tab (*Bkc) PO 1 tablet DAILY BRENNAN Administration Ondansetron HCl 4 mg 05/11/25 17:57 Ondansetron Inj 4 Mg/2 Ml Vial IV PUSH Q4H PRN Nausea Sodium Chloride 1 gm 05/12/25 09:00 05/12/25 08:49 Sodium Chloride 1 Gm Tablet PO 1 gm DAILY BRENNAN Administration Umeclidinium/Vilanterol 1 puff 05/12/25 08:00 05/12/25 07:28 Umeclidinium/Vilanterol 62.5-25 Mcg Ellipta INHALATION 1 puff DAILYRT BRENNAN Administration Vitamin D 125 mcg 05/12/25 09:00 05/12/25 08:48 Cholecalciferol (Vitamin D3) 125 Mcg (5,000 Units) Tablet PO 125 mcg DAILY BRENNAN Administration Radiology Results: ITS Impressions Head CT 05/11/25 15:34 Impression: 1.No acute intracranial abnormality. Foot X-Ray 05/11/25 15:58 Impression: Osteomyelitis detailed above Labs Labs: Laboratory Results - last 24 hr 05/11/25 05/11/25 05/11/25 14:39 15:41 16:05 WBC 7.0 RBC 3.46 L Hgb 11.5 L Hct 34.8 L MCV 100.6 H MCH 33.2 MCHC 33.0 RDW 16.4 H Plt Count 165 MPV 9.4 Immature Gran % (Auto) 0.3 Neut % (Auto) 63.6 Lymph % (Auto) 27.5 [place] % (Auto) 6.8 Eos % (Auto) 1.4 Baso % (Auto) 0.4 Lymph # (Auto) 1.91 Bradford # (Auto) 0.5 Eos # (Auto) 0.1 Baso # (Auto) 0.0 Abs Immat Gran (auto) 0.02 Absolute Neuts (auto) 4.4 Absolute Nucleated RBC 0.000 Nucleated RBC % 0.0 PT 13.4 INR 1.0 APTT 27.9 Puncture Site Right brachial ABG pH 7.453 H ABG pCO2 44.5 ABG pO2 67.4 L ABG PO2/FiO2 Ratio 3.21 ABG HCO3 30.4 H ABG O2 Saturation 94.1 L ABG O2 Content 14.0 L ABG Base Excess 5.8 A-a Gradient 29.0 Oxyhemoglobin 90.5 Carboxyhemoglobin 2.4 H Methemoglobin 0.3 Reduced Hemoglobin 6.8 H Total Hemoglobin 11.0 L O2 Delivery Device Room air O2 Liters/Min 0.0 FiO2 21 Sodium 137 Potassium 4.0 Chloride 99 Carbon Dioxide 31 H Anion Gap 7 BUN 14 D Creatinine 0.95 Estim Creat Clear Calc 68 Estimated GFR > 60 Glucose 115 H Hemoglobin A1c 4.2 Lactic Acid 1.6 Calcium 9.8 Total Bilirubin 1.3 AST 116 H ALT 83 H Alkaline Phosphatase 275 H C-Reactive Protein 7.4 H NT-Pro-B Natriuret Pep 866 H Total Protein 7.4 Albumin 3.7 Urine Color Dark yellow Urine Appearance Clear Urine pH 6.0 Ur Specific [place] 1.017 Urine Protein Trace Urine Glucose (UA) Negative Urine Ketones Negative Ur Blood (Man) Negative Urine Nitrate Negative Urine Bilirubin Negative Urine Urobilinogen 2.0 H Add Ur Microanalysis Reviewed Leukocyte Esterase Rfl 2+ H Urine RBC 11-20 H Urine WBC 11-20 H Ur Squamous Epith Cells None seen Urine Bacteria None seen Urine Casts 3-5 Urine Opiates Screen Negative Urine Methadone Screen Negative Ur Barbiturates Screen Positive A Ur Phencyclidine Scrn Negative Ur Amphetamine Screen Negative U Benzodiazepines Scrn Negative Urine Cocaine Screen Negative U Cannabinoids Screen Negative Ethyl Alcohol < 10 05/12/25 05:25 WBC RBC Hgb Hct MCV MCH MCHC RDW Plt Count MPV Immature Gran % (Auto) Neut % (Auto) Lymph % (Auto) Bradford % (Auto) Eos % (Auto) Baso % (Auto) Lymph # (Auto) Bradford # (Auto) Eos # (Auto) Baso # (Auto) Abs Immat Gran (auto) Absolute Neuts (auto) Absolute Nucleated RBC Nucleated RBC % PT INR APTT Puncture Site ABG pH ABG pCO2 ABG pO2 ABG PO2/FiO2 Ratio ABG HCO3 ABG O2 Saturation ABG O2 Content ABG Base Excess A-a Gradient Oxyhemoglobin Carboxyhemoglobin Methemoglobin Reduced Hemoglobin Total Hemoglobin O2 Delivery Device O2 Liters/Min FiO2 Sodium Potassium Chloride Carbon Dioxide Anion Gap BUN Creatinine 0.86 Estim Creat Clear Calc 76 Estimated GFR > 60 Glucose Hemoglobin A1c Lactic Acid Calcium Total Bilirubin AST ALT Alkaline Phosphatase C-Reactive Protein NT-Pro-B Natriuret Pep Total Protein Albumin Urine Color Urine Appearance Urine pH Ur Specific [place] Urine Protein Urine Glucose (UA) Urine Ketones Ur Blood (Man) Urine Nitrate Urine Bilirubin Urine Urobilinogen Add Ur Microanalysis Leukocyte Esterase Rfl Urine RBC Urine WBC Ur Squamous Epith Cells Urine Bacteria Urine Casts Urine Opiates Screen Urine Methadone Screen Ur Barbiturates Screen Ur Phencyclidine Scrn Ur Amphetamine Screen U Benzodiazepines Scrn Urine Cocaine Screen U Cannabinoids Screen Ethyl Alcohol Quality VTE Prophylaxis VTE prophylaxis: pharmacologic ordered
[2025-05-13] VITALS (7 sets, daily range): BP systolic 105–135; BP diastolic 40–56; PULSE 74–91; RESP 14–19; TEMP 35.8–36.5; O2SAT 100
[2025-05-13] MEDS: CEFEPIME 2 GM in SODIUM CHLORIDE 0.9% IV 50 ML 100 ML IVPB ×2 (05:14→16:27)
[2025-05-13] MEDS: metroNIDAZOLE 500 MG/ISO 100ML 500 MG/100 ML BAG 100 MG IVPB ×3 (05:51→21:03)
[2025-05-13 06:29] LABS: Estimated CRCL calculation 91 ml/min; Estimated Glomerular Filt Rate > 60
[2025-05-13] MEDS: VANCOMYCIN 1,250 MG/NS 250 ML 1,250 MG/250 ML BAG 166.67 MG IVPB (06:54)
--- NOTE | 2025-05-13 07:29 | PC.NURSE ---
Patient declined PICC line procedure this morning, he stated, I'm not letting them put anything in me, didn't come here for that. Will discuss with his about decision to go through with procedure. Oncoming nurse aware consents not completed due to patient request at this time.
[2025-05-13] MEDS: UMECLIDINIUM/VILANTEROL 62.5-25 MCG ELLIPTA 1 PUFF INHALATION (07:42)
[2025-05-13] MEDS: ASPIRIN 81 MG CHEWABLE TABLET PO (08:39)
[2025-05-13] MEDS: CHOLECALCIFEROL (VITAMIN D3) 125 MCG (5,000 UNITS) TABLET PO (08:39)
[2025-05-13] MEDS: CALCIUM CARBONATE (OSCAL) 500 MG TABLET PO (08:39)
[2025-05-13] MEDS: ATORVASTATIN 10 MG TABLET PO (08:39)
[2025-05-13] MEDS: DULoxetine HCL 60 MG CAPSULE.DR PO (08:40)
[2025-05-13] MEDS: CYANOCOBALAMIN 500 MCG TABLET PO (08:40)
[2025-05-13] MEDS: FUROSEMIDE 20 MG TABLET PO (08:40)
[2025-05-13] MEDS: CYANOCOBALAMIN 1,000 MCG TABLET 2000 MCG PO ×2 (08:40→20:55)
[2025-05-13] MEDS: GABAPENTIN 300 MG CAPSULE 600 MG PO ×3 (08:40→16:27)
[2025-05-13] MEDS: FOLIC ACID 1 MG TABLET PO (08:40)
[2025-05-13] MEDS: METOPROLOL TARTRATE 12.5 MG TABLET PO ×2 (08:41→20:55)
[2025-05-13] MEDS: SODIUM CHLORIDE 1 GM TABLET PO (08:41)
[2025-05-13] MEDS: MULTIVITAMINS THERAPEUTIC TAB (*BKC) 1 TABLET PO (08:41)
--- NOTE | 2025-05-13 11:30 | WPDIDCN ---
Assessment and Plan Assessment and plan (1) Ulcer of toe of left foot: Qualifiers: Non-pressure ulcer stage: with necrosis of bone Qualified Code(s): L97.524 - Non-pressure chronic ulcer of other part of left foot with necrosis of bone Code(s): L97.529 - Non-pressure chronic ulcer of other part of left foot with unspecified severity Status: Acute (2) Ulcer of great toe: Code(s): L97.509 - Non-pressure chronic ulcer of other part of unspecified foot with unspecified severity Status: Acute (3) Acute osteomyelitis of toe of left foot: Code(s): M86.172 - Other acute osteomyelitis, left ankle and foot Status: Acute (4) Ulcer of toe of right foot: Qualifiers: Non-pressure ulcer stage: unspecified non-pressure ulcer stage Qualified Code(s): L97.519 - Non-pressure chronic ulcer of other part of right foot with unspecified severity Code(s): L97.519 - Non-pressure chronic ulcer of other part of right foot with unspecified severity Status: Acute Plan # Left 1st toe plantar infected ulcer with x-ray evidence osteomyelitis. # Right foot with distal 2nd and 3rd toe dry eschar wounds but minimal surrounding inflammation. # Peripheral vascular disease. Rule out specific peripheral arterial disease. # Reported diagnosis of diabetes in the past. # Recent left his fracture, status post repair. Plan: -- surgery following. Patient opting for medical management. -- if still with left 1st toe wound purulence would send for culture. -- for now, continue cefepime, metronidazole, and vancomycin. Adjust antibiotics based on culture. If unable to assess for pathogens via culture would recommend constructing an outpatient antibiotic regimen that is more streamlined such as ertapenem/ vancomycin or ertapenem/daptomycin or ertapenem/ weekly dalbavancin to complete a 6 week course of IV antibiotics. -- would require Placement of PICC as well as weekly CBC, CMP, CRP, ( and CPK 5 daptomycin). -- further recommendations to follow. Thank you for the consult. Patient was seen via video telehealth consultation with the assistance of staff. Chart, data, and patient independently reviewed. Patient was located at [facility] while I was located in my [place] office. Received verbal consent from patient. HPI Data of Consult Date/Time: 05/13/25 11:30 Requesting Physician: Mini Bender MD Primary Care Provider: Abdirahman Abernathy MD Consult Narrative Reason for consult: left 1st toe infected ulcer with underlying osteomyelitis Narrative: Francis Montes is a 69 year old male with past medical history significant for diabetes, peripheral vascular disease, COPD and on home oxygen, alcoholic cirrhosis, hyperlipidemia, dysphagia, anemia, and thrombocytopenia. Surgical repair of left hip fracture 1 month ago. Presented to the ED from home after recent admission to SNF rehab. Status post left hip fracture 1 month ago, surgically repaired at outside hospital, and then transferred to [facility] for rehab. Discharged from SNF 1 day prior to ED evaluation. Family noted development of bilateral feet ulcerations 2 days prior to this presentation presumably secondary to pressure against recent bottom bed frame. Family also notes patient has become more lethargic (now resolved ). Noted on exam to have plantar 1st toe wound with for foul-smelling purulent drainage, surrounding callus, and toe erythema with swelling. Additional smaller wound to left 1st toe MTP And now on inflammatory ulceration to left posterior heel. Right foot with small ulcerations to the tip of the 2nd and 3rd toes with some surrounding induration. Afebrile with normal white blood cell count. CRP elevated to 7.4. for bilateral feet x-rays significant for left osseous destruction noted of the distal aspect of the distal phalanx first digit suggestive of osteomyelitis. No known antibiotic allergies and he has been placed on cefepime / vancomycin. General surgery consulted the patient opting for medical management. PICC to be placed. Review of Systems Review of Systems: All systems reviewed & are unremarkable except as noted in HPI and below PMFSH Past Medical History Medical History PAF (paroxysmal atrial fibrillation) Aortic stenosis Pure hypercholesterolemia Dysphagia Toxic metabolic encephalopathy Acute metabolic encephalopathy Fracture of manubrium Fracture of lamina of cervical vertebra Ribs, multiple fractures Sternal fracture Chronic respiratory failure with hypoxia, on home oxygen therapy Occult blood in stools Acute on chronic anemia Alcohol withdrawal seizure Rotator cuff dysfunction Peripheral neuropathy COPD (chronic obstructive pulmonary disease) Hepatitis A Gout Peripheral vascular disease Portal venous hypertension Xerosis cutis Onychomycosis Alcohol dependence Nicotine dependence Alcoholic cirrhosis Chronic obstructive pulmonary disease, unspecified Depression with anxiety Stasis dermatitis of both legs Thrombocytopenia Surgical History Surgical History Status post left rotator cuff repair (~12/08/23) History of colonoscopy with polypectomy (03/2018) History of cystoscopy S/P TURP (status post transurethral resection of prostate) Family History Family History Mother Carcinoma of colon, Onset Age: 77 Father Diabetes mellitus Sibling Diabetes mellitus Social History Social History Social History: Code status: Full code Surrogate decision maker: Smoking packs per day: 0.5 Smoking cigarettes per day: 10.0 Years smoked: 25 Smoking pack-years: 12.50 Smoking status: Former smoker Tobacco type: cigarettes Second hand tobacco smoke exposure: No Smoking end date: 03/31/25 Additional smoking assessment comments: patient stated he smoked on and off for most of his life. Alcohol intake: current Drinks per week: 1 Alcohol use details: The patient drinks up to a 12 pack of beer per day. Substance use: never Substance use type: does not use Do You Feel Safe in your Home?: Yes Lack of Transportation: No Lack of Food: Never True Current Housing: I Have Housing Concerned About Future Housing: No Difficulty Paying Gas/Electric Bills: No Difficulty Paying for Meds: No Currently Unemployed: No Education: High School Diploma/GED Difficulty w/ Childcare or Family Care: No Living arrangements: with family Additional living arrangements comments: He lives with his of 33 years. They raised 3 children. 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 Gender identity (if verbalized by the patient): Male Sexual Orientation (if Verbalized by the Patient): Straight or Heterosexual Spiritual care concerns: No Meds Home Medications and Allergies Home Medications ?Medication ?Instructions ?Recorded ?Confirmed ?Type multivitamin 1 tablet PO DAILY 03/25/21 05/11/25 History aspirin 81 mg chewable tablet 81 mg PO DAILY@0800 #30 tabs 02/13/24 05/11/25 Rx (Children's Aspirin) folic acid 1 mg tablet 1 mg PO DAILY #30 tabs 02/13/24 05/11/25 Rx buspirone 10 mg tablet 10 mg PO Q12HR #180 tabs 07/02/24 05/11/25 Rx gabapentin 600 mg tablet 600 mg PO TID #270 tabs 09/10/24 05/11/25 Rx levetiracetam 500 mg tablet 500 mg PO Q12HR #180 tabs 09/10/24 05/11/25 Rx (Keppra) atorvastatin 10 mg tablet 10 mg PO DAILY #90 tabs 10/29/24 05/11/25 Rx albuterol sulfate 90 mcg/actuation 1 puff inhalation Q4H PRN 12/12/24 05/11/25 History aerosol inhaler (Ventolin HFA) shortness of breath or wheezing calcium carbonate 600 mg PO DAILY 12/12/24 05/11/25 History cholecalciferol (vitamin D3) 125 125 mcg PO DAILY 12/12/24 05/11/25 History mcg (5,000 unit) capsule duloxetine 60 mg capsule,delayed 60 mg PO DAILY 12/12/24 05/11/25 History release mecobalamin (vitamin B12) 1,000 2,000 mcg PO .HS 12/12/24 05/11/25 History mcg chewable tablet mecobalamin (vitamin B12) 2,500 2,500 mcg PO DAILY 12/12/24 05/11/25 History mcg chewable tablet furosemide 20 mg tablet 20 mg PO DAILY #90 tabs 01/07/25 05/11/25 Rx sodium chloride 1,000 mg soluble 1,000 mg PO DAILY #90 tabs 01/16/25 05/11/25 Rx tablet umeclidinium 62.5 mcg-vilanterol 1 inh inhalation DAILY 01/24/25 05/11/25 History 25 mcg/actuation powdr for inhalation (Anoro Ellipta) metoprolol tartrate 25 mg tablet 12.5 mg (1/2 x 25 mg) PO BID #45 03/11/25 05/11/25 Rx tabs allopurinol 300 mg tablet 300 mg PO DAILY #90 tabs 05/06/25 05/11/25 Rx Allergies Allergy/AdvReac Type Severity Reaction Status Date / Time No Known Allergies Allergy Verified 01/24/25 10:04 Vital Signs Vital Signs - 24 hr 05/12/25 14:00 05/12/25 20:18 05/12/25 21:17 Temperature 97.8 F 97.6 F Pulse Rate 83 90 Respiratory Rate 18 16 Blood Pressure 136/62 131/51 L Pulse Oximetry 99 100 100 Oxygen Delivery Nasal Cannula Oxygen Flow Rate 2 05/12/25 21:18 05/13/25 05:11 05/13/25 07:45 Temperature 97.2 F L Pulse Rate 90 81 81 Respiratory Rate 16 19 Blood Pressure 105/40 L Pulse Oximetry 100 Oxygen Delivery Oxygen Flow Rate 05/13/25 08:00 05/13/25 08:41 Temperature Pulse Rate 74 Respiratory Rate Blood Pressure Pulse Oximetry 100 Oxygen Delivery Nasal Cannula Oxygen Flow Rate 2 Exam Narrative: He is awake and alert and nontoxic in appearance. Mental status is baseline. is at bedside. Directed exam significant for bilateral lower extremity stasis dermatitis skin changes. Bilateral feet with clean dressings. Left 1st toe ulceration is noted in the HPI. Right tips of 2nd and 3rd and toe with small eschars. Results Labs 05/11/25 14:39 05/13/25 05:34 Labs: BMP 05/13/25 05:34 Creatinine 0.71
--- NOTE | 2025-05-13 11:51 | P.PNGS_ITS ---
Progress Note: A&P Assessment and Plan (1) Acute osteomyelitis of toe of left foot: Code(s): M86.172 - Other acute osteomyelitis, left ankle and foot Status: Acute Assessment and Plan: * Bilateral toe ulcers and left heel ulcer. The left great toe ulcer is at the area of findings of osteomyelitis on plain films. * Patient does not want any surgical management after discussing with Dr. Kaiser yesterday. * Continue IV antibiotics, await ID consult, continue local wound care with silver gel dressing changes. * Discussed keep heels elevated off bed/waffle boots and pressure offloading * ABIs pending Plan I have discussed the patient's case and plan of care with Dr. Kaiser. Subjective Subjective Date/Time Seen: 05/13/25 11:51 Patient reports: no new complaints and afebrile Interval history: Patient seen with his at the bedside. He reports feeling some soreness in the right heel. No other specific complaints. Exam Narrative: Left great toe ulcer on the distal plantar toe with 70% pink and a central area with menard necrotic soft tissue, this probes to bone at the distal 1st phalanx. No purulent drainage. Left heel ulcer measuring 2.5 x 3 x 0.1 cm with 90% pale pink wound bed and a small darkened nonblanchable area in the center that is menard/ribera in color and dry and intact, no fluctuance, no drainage, no crepitus. No surrounding erythema or swelling. Right 2nd two with a dry, firm ribera eschar at the distal toe. This toe is without erythema or swelling. Right 3rd toe with a firm eschar on the distal plantar toe with scant yellow/ribera drainage expressed. The eschar does peel back and there is a pink wound bed, no purulent drainage noted. This toe is without erythema or swelling. Right heel slightly pink from pressure, but blanchable. No wounds. Objective Data Vital Signs Vital Signs: Vital Signs - 24 hr 05/12/25 14:00 05/12/25 20:18 05/12/25 21:17 Temperature 97.8 F 97.6 F Pulse Rate 83 90 Respiratory Rate 18 16 Blood Pressure 136/62 131/51 L Pulse Oximetry 99 100 100 Oxygen Delivery Nasal Cannula Oxygen Flow Rate 2 05/12/25 21:18 05/13/25 05:11 05/13/25 07:45 Temperature 97.2 F L Pulse Rate 90 81 81 Respiratory Rate 16 19 Blood Pressure 105/40 L Pulse Oximetry 100 Oxygen Delivery Oxygen Flow Rate 05/13/25 08:00 05/13/25 08:41 Temperature Pulse Rate 74 Respiratory Rate Blood Pressure Pulse Oximetry 100 Oxygen Delivery Nasal Cannula Oxygen Flow Rate 2 Intake/Output Intake/Output: Intake & Output 05/10/25 05/11/25 05/12/25 05/13/25 23:59 23:59 23:59 23:59 Intake Total 50 1870 940 Output Total 900 900 Balance 50 970 40 Meds/Results Medications: Active Medications Generic Name Dose Route Start Last Admin Trade Name Freq PRN Reason Stop Dose Admin Acetaminophen 650 mg 05/11/25 17:57 Acetaminophen 325 Mg Tablet PO Q4H PRN Mild Pain (1-3) or Fever Albuterol 1 puff 05/11/25 23:16 05/12/25 01:04 Albuterol Sulfate (*Sp) Aerosol 1 Puff INHALATION 1 puff Q4HRT PRN Administration Shortness Of Breath Or Wheezing Allopurinol 300 mg 05/12/25 09:00 05/13/25 08:39 Allopurinol 300 Mg Tablet PO 300 mg DAILY BRENNAN Administration Aspirin 81 mg 05/12/25 08:00 05/13/25 08:39 Aspirin 81 Mg Chewable Tablet PO 81 mg DAILY@0800 BRENNAN Administration Atorvastatin Calcium 10 mg 05/12/25 09:00 05/13/25 08:39 Atorvastatin 10 Mg Tablet PO 10 mg DAILY BRENNAN Administration Buspirone HCl 10 mg 05/12/25 09:00 05/13/25 08:39 Buspirone Hcl 10 Mg Tablet PO 10 mg Q12HR BRENNAN Administration Calcium Carbonate 500 mg 05/12/25 09:00 05/13/25 08:39 Calcium Carbonate (Oscal) 500 Mg Tablet PO 500 mg QAM BRENNAN Administration Cyanocobalamin 2,000 mcg 05/12/25 21:00 05/12/25 21:17 Cyanocobalamin 1,000 Mcg Tablet PO 2,000 mcg QHS BRENNAN Administration Cyanocobalamin 2,000 mcg 05/12/25 09:00 05/13/25 08:40 Cyanocobalamin 1,000 Mcg Tablet PO 2,000 mcg QAM BRENNAN Administration Cyanocobalamin 500 mcg 05/12/25 09:00 05/13/25 08:40 Cyanocobalamin 500 Mcg Tablet PO 500 mcg QAM BRENNAN Administration Dextrose 12.5 gm 05/11/25 17:57 Dextrose 50% 25 Gm/50 Ml Syringe IV PUSH PRN PRN Hypoglycemia Protocol Duloxetine HCl 60 mg 05/12/25 09:00 05/13/25 08:40 Duloxetine Hcl 60 Mg Capsule.Dr PO 60 mg DAILY BRENNAN Administration Enoxaparin Sodium 40 mg 05/12/25 09:00 05/12/25 08:47 Enoxaparin 40 Mg/0.4 Ml Syringe SUB-Q 40 mg On Hold: 05/12/25 13:23 DAILY BRENNAN Administration Folic Acid 1 mg 05/12/25 09:00 05/13/25 08:40 Folic Acid 1 Mg Tablet PO 1 mg DAILY BRENNAN Administration Furosemide 20 mg 05/12/25 09:00 05/13/25 08:40 Furosemide 20 Mg Tablet PO 20 mg DAILY BRENNAN Administration Gabapentin 600 mg 05/12/25 09:00 05/13/25 08:40 Gabapentin 300 Mg Capsule PO 600 mg TID BRENNAN Administration Glucagon 1 mg 05/11/25 17:57 Glucagon For Inj 1 Mg Vial IM PRN PRN Hypoglycemia Protocol Glucose 15 gm 05/11/25 17:57 Glucose Oral Gel 15 Gm Of Glucse In 37.5 Gm Tube PO PRN PRN Hypoglycemia Protocol Cefepime HCl 2 gm/ Sodium 50 mls @ 100 mls/hr 05/12/25 05:00 05/13/25 05:44 Chloride IVPB Infused Q12H BRENNAN Infusion Dextrose 1,000 mls @ 100 mls/hr 05/11/25 17:57 Dextrose 5% 1,000 Ml IVPB PRN PRN Hypoglycemia Protocol Metronidazole 500 mg in 100 mls @ 100 mls/hr 05/11/25 23:05 05/13/25 06:51 Flagyl 500 Mg/Iso Soln 100 Ml IVPB Infused Q8HR BRENNAN Infusion Vancomycin HCl 1,250 mg in 250 mls @ 166.667 mls/hr 05/13/25 07:00 05/13/25 06:54 Vancomycin 1,250 Mg/Ns 250 Ml IVPB 166.67 mls/hr Q12H BRENNAN Administration Levetiracetam 500 mg 05/11/25 23:30 05/13/25 08:41 Levetiracetam 500 Mg Tablet PO 500 mg Q12HR BRENNAN Administration Metoprolol Tartrate 12.5 mg 05/11/25 23:30 05/13/25 08:41 Metoprolol Tartrate 12.5 Mg Tablet PO 12.5 mg Q12HR BRENNAN Administration Multivitamins Therapeutic 1 tablet 05/12/25 09:00 05/13/25 08:41 Multivitamins Therapeutic Tab (*Bkc) PO 1 tablet DAILY BRENNAN Administration Ondansetron HCl 4 mg 05/11/25 17:57 Ondansetron Inj 4 Mg/2 Ml Vial IV PUSH Q4H PRN Nausea Sodium Chloride 1 gm 05/12/25 09:00 05/13/25 08:41 Sodium Chloride 1 Gm Tablet PO 1 gm DAILY BRENNAN Administration Umeclidinium/Vilanterol 1 puff 05/12/25 08:00 05/13/25 07:42 Umeclidinium/Vilanterol 62.5-25 Mcg Ellipta INHALATION 1 puff DAILYRT BRENNAN Administration Vitamin D 125 mcg 05/12/25 09:00 05/13/25 08:39 Cholecalciferol (Vitamin D3) 125 Mcg (5,000 Units) Tablet PO 125 mcg DAILY BRENNAN Administration Radiology Results: ITS Impressions Head CT 05/11/25 15:34 Impression: 1.No acute intracranial abnormality. Foot X-Ray 05/11/25 15:58 Impression: Osteomyelitis detailed above Labs Labs: Laboratory Results - last 24 hr 05/13/25 05:34 Creatinine 0.71 Estim Creat Clear Calc 91 Estimated GFR > 60 Vancomycin Trough 11.4
--- NOTE | 2025-05-13 16:04 | PM.IMPN ---
Progress Note: A&P Assessment and Plan (1) Ulcer of toe of left foot: Qualifiers: Non-pressure ulcer stage: with necrosis of bone Qualified Code(s): L97.524 - Non-pressure chronic ulcer of other part of left foot with necrosis of bone Code(s): L97.529 - Non-pressure chronic ulcer of other part of left foot with unspecified severity Status: Acute Assessment and Plan: - ulceration to left first toe - Foot XR, L: Osteomyelitis detailed above - Foot XR, R: No acute fracture or malalignment. - General Surgery consulted - wound RN consulted - started on Vancomycin, Cefepime and Flagyl on 05/11 - check FLORES - surgery consulted will hold lovenox tonight in case surgery will be scheduled -------- pt does ot wnat to do surgery, will resume lovenox ID is on board- once bc back and negative- will order picc line for antibiotics (2) Ulcer of toe of right foot: Qualifiers: Non-pressure ulcer stage: unspecified non-pressure ulcer stage Qualified Code(s): L97.519 - Non-pressure chronic ulcer of other part of right foot with unspecified severity Code(s): L97.519 - Non-pressure chronic ulcer of other part of right foot with unspecified severity Status: Acute Assessment and Plan: - see above - ulceration noted to right 2nd and 3rd toe (3) Alcohol dependence: Qualifiers: Substance use status: unspecified alcohol-induced disorder Qualified Code(s): F10.29 - Alcohol dependence with unspecified alcohol-induced disorder Code(s): F10.20 - Alcohol dependence, uncomplicated Status: Chronic Assessment and Plan: - last ETOH intake 1 month ago prior to admission at [facility] for a hip fracture - facial tremor and BUE tremor noted on exam (4) Cirrhosis of liver: Qualifiers: Hepatic cirrhosis type: alcoholic cirrhosis Ascites presence: without ascites Qualified Code(s): K70.30 - Alcoholic cirrhosis of liver without ascites Code(s): K74.60 - Unspecified cirrhosis of liver Status: Chronic Assessment and Plan: - secondary to ETOH, no longer drinking - continue folic acid, multivitamin, and B12 (5) COPD (chronic obstructive pulmonary disease): Qualifiers: COPD type: unspecified COPD Qualified Code(s): J44.9 - Chronic obstructive pulmonary disease, unspecified Code(s): J44.9 - Chronic obstructive pulmonary disease, unspecified Status: Chronic Assessment and Plan: - continue albuterol inhaler p.r.n. (6) Hypertension: Qualifiers: Hypertension type: primary hypertension Qualified Code(s): I10 - Essential (primary) hypertension Code(s): I10 - Essential (primary) hypertension Status: Chronic Assessment and Plan: - chronic, currently 153/87 - continue home medications: Metoprolol - monitor (7) Smoker: Code(s): F17.200 - Nicotine dependence, unspecified, uncomplicated Status: Acute Assessment and Plan: pt had been smoking since he was 11 years old and about 3 pad, cut way down now offered nicotine patch- refused for now smoking cessation counselling completed Plan Diet: Heart healthy GI Prophylaxis: N/a DVT Prophylaxis: Lovenox SQ IV fluids: None Lines/Tubes: Peripheral IV Code Status: Full code Time Spent With Patient Time with patient: Greater than 35 minutes Subjective Date/time seen: 05/13/25 16:04 Interval history: 69 y/o M with PMH of HLD, dysphagia, chronic respiratory failure on home O2, alcoholic cirrhosis, anemia, diabetes, COPD, hepatitis-A, PVD, and thrombocytopenia presents here with bilateral foot wounds. The patient presents here from home on 05/11 for further evaluation of bilateral foot wounds. The patient and the patient's provided the following history. The patient sustained a left hip fracture approximately 1 month ago and underwent surgery at [facility]. He was then discharged to [facility] for rehab. He was discharged from that facility yesterday (05/10). While at that facility the patient was reportedly rubbing his feet against the bottom frame of the bed per his and she 1st noticed he had developed wounds to his bilateral feet around 2 days ago/today. The patient has a history of diabetes, however no longer considered DM and no longer on medications. She additionally reports he has been more lethargic and sleeping more than usual since his arrival back home from the rehab facility. He denies any alcohol use since being discharged home from [facility], believes the last time he drank was before he was seen at the OSH for his hip. He reports chills and discomfort in his feet. Denies fever, body aches, nausea, vomiting, or diarrhea. Initial VS at presentation: 98.2? F, HR 94, R 18, 128/75, and 99% on RA. ED workup showed: No leukocytosis, hemoglobin 11.5, and normal coags, no significant abnormalities on ABG, no significant electrolyte derangements, creatinine 0.95 and GFR >60, glucose 115, lactic 1.6, CRP 7.4, BNP 866, and UA equivocal for infection. UDS positive for barbiturates. Head CT showed no acute intracranial abnormality. Foot XR (R) showed no acute fracture or malalignment. Foot XR (L) showed osteomyelitis, osseous destruction noted of the distal aspect of the distal phalanx 1st digit. Pt reports that he was diabetic at some point but his hga1c improved and he no longer diabetic. he is not on any regimen at home. Surgery consult is placed. Will hold [facility] in case if surgery will be scheduled in am. 05/13 ID is on board. pt is doing well. no nausea/vomiting. Review of Systems Review of Systems: All systems reviewed & are unremarkable except as noted in HPI and below Exam Const: General: comfortable and no acute distress Other: , male, elderly appearing, chronically ill-appearing HENMT: Face/Nose/Sinus: Normal nares present Mouth: Yes moist mucous membranes Eyes: General: appearance normal, both eyes and all related structures Sclera: sclerae normal Pupils: Equal, round and reactive pupils present EOM: EOMs intact bilaterally Resp: Effort & Inspection: normal respiratory effort Auscultation: clear to auscultation bilaterally Cardio: Rate: regular rate Rhythm: regular rhythm Other: S1-S2 present without murmur, rub, ectopy GI: Other: Abdomen soft, nondistended, nontender. Normoactive bowel sounds in all quadrants. Skin: General skin exam: normal color, no rashes or lesions noted and wounds noted Wounds: wounds noted Other: Positive wound to left 1st toe pad with purulent drainage at the center of the ulcer, mild foul odor. Surrounding callus with diffuse erythema and swelling. Small ulcerative wound to the left 1st toe MTP. Small ulcerative wound to tip of right 2nd and 3rd toes with surrounding induration. Scant erythema. Ulceration to left posterior heel without drainage, no signs of infection. Neuro: Cranial nerves: Yes Equal, round and reactive pupils present Speech: normal speech Motor exam (neuro): 5/5 motor strength present throughout Sensory Exam: normal sensation Other: A&O x3, disorientated to year. Resting tremor noted to mouth and bilateral upper extremities, worsens with intention. Extrem: General: normal exam except as noted Other: Hyper pigmentation noted to bilateral lower extremities, DP pulses poorly palpable. Psych: Mental Status: mental status grossly normal Other: Fair to poor insight judgment at present, anxious. Objective Data Vital Signs Vital Signs: Vital Signs - 24 hr 05/12/25 20:18 05/12/25 21:17 05/12/25 21:18 Temperature 97.6 F Pulse Rate 90 90 Respiratory Rate 16 Blood Pressure 131/51 L Pulse Oximetry 100 100 Oxygen Delivery Nasal Cannula Oxygen Flow Rate 2 05/13/25 05:11 05/13/25 07:45 05/13/25 08:00 Temperature 97.2 F L Pulse Rate 81 81 Respiratory Rate 16 19 Blood Pressure 105/40 L Pulse Oximetry 100 100 Oxygen Delivery Nasal Cannula Oxygen Flow Rate 2 05/13/25 08:41 05/13/25 14:00 Temperature 96.5 F L Pulse Rate 74 87 Respiratory Rate 16 Blood Pressure 135/55 L Pulse Oximetry 100 Oxygen Delivery Oxygen Flow Rate Intake/Output Intake/Output: Intake & Output 05/10/25 05/11/25 05/12/25 05/13/25 23:59 23:59 23:59 23:59 Intake Total 50 1870 1180 Output Total 900 900 Balance 50 970 280 Meds/Results Medications: Active Medications Generic Name Dose Route Start Last Admin Trade Name Freq PRN Reason Stop Dose Admin Acetaminophen 650 mg 05/11/25 17:57 Acetaminophen 325 Mg Tablet PO Q4H PRN Mild Pain (1-3) or Fever Albuterol 1 puff 05/11/25 23:16 05/12/25 01:04 Albuterol Sulfate (*Sp) Aerosol 1 Puff INHALATION 1 puff Q4HRT PRN Administration Shortness Of Breath Or Wheezing Allopurinol 300 mg 05/12/25 09:00 05/13/25 08:39 Allopurinol 300 Mg Tablet PO 300 mg DAILY BRENNAN Administration Aspirin 81 mg 05/12/25 08:00 05/13/25 08:39 Aspirin 81 Mg Chewable Tablet PO 81 mg DAILY@0800 BRENNAN Administration Atorvastatin Calcium 10 mg 05/12/25 09:00 05/13/25 08:39 Atorvastatin 10 Mg Tablet PO 10 mg DAILY BRENNAN Administration Buspirone HCl 10 mg 05/12/25 09:00 05/13/25 08:39 Buspirone Hcl 10 Mg Tablet PO 10 mg Q12HR BRENNAN Administration Calcium Carbonate 500 mg 05/12/25 09:00 05/13/25 08:39 Calcium Carbonate (Oscal) 500 Mg Tablet PO 500 mg QAM BRENNAN Administration Cyanocobalamin 2,000 mcg 05/12/25 21:00 05/12/25 21:17 Cyanocobalamin 1,000 Mcg Tablet PO 2,000 mcg QHS BRENNAN Administration Cyanocobalamin 2,000 mcg 05/12/25 09:00 05/13/25 08:40 Cyanocobalamin 1,000 Mcg Tablet PO 2,000 mcg QAM BRENNAN Administration Cyanocobalamin 500 mcg 05/12/25 09:00 05/13/25 08:40 Cyanocobalamin 500 Mcg Tablet PO 500 mcg QAM BRENNAN Administration Dextrose 12.5 gm 05/11/25 17:57 Dextrose 50% 25 Gm/50 Ml Syringe IV PUSH PRN PRN Hypoglycemia Protocol Duloxetine HCl 60 mg 05/12/25 09:00 05/13/25 08:40 Duloxetine Hcl 60 Mg Capsule.Dr PO 60 mg DAILY BRENNAN Administration Enoxaparin Sodium 40 mg 05/12/25 09:00 05/12/25 08:47 Enoxaparin 40 Mg/0.4 Ml Syringe SUB-Q 40 mg On Hold: 05/12/25 13:23 DAILY BRENNAN Administration Folic Acid 1 mg 05/12/25 09:00 05/13/25 08:40 Folic Acid 1 Mg Tablet PO 1 mg DAILY BRENNAN Administration Furosemide 20 mg 05/12/25 09:00 05/13/25 08:40 Furosemide 20 Mg Tablet PO 20 mg DAILY BRENNAN Administration Gabapentin 600 mg 05/12/25 09:00 05/13/25 13:04 Gabapentin 300 Mg Capsule PO 600 mg TID BRENNAN Administration Glucagon 1 mg 05/11/25 17:57 Glucagon For Inj 1 Mg Vial IM PRN PRN Hypoglycemia Protocol Glucose 15 gm 05/11/25 17:57 Glucose Oral Gel 15 Gm Of Glucse In 37.5 Gm Tube PO PRN PRN Hypoglycemia Protocol Cefepime HCl 2 gm/ Sodium 50 mls @ 100 mls/hr 05/12/25 05:00 05/13/25 05:44 Chloride IVPB Infused Q12H BRENNAN Infusion Dextrose 1,000 mls @ 100 mls/hr 05/11/25 17:57 Dextrose 5% 1,000 Ml IVPB PRN PRN Hypoglycemia Protocol Metronidazole 500 mg in 100 mls @ 100 mls/hr 05/11/25 23:05 05/13/25 13:04 Flagyl 500 Mg/Iso Soln 100 Ml IVPB 100 mls/hr Q8HR BRENNAN Administration Vancomycin HCl 1,250 mg in 250 mls @ 166.667 mls/hr 05/13/25 07:00 05/13/25 06:54 Vancomycin 1,250 Mg/Ns 250 Ml IVPB 166.67 mls/hr Q12H BRENNAN Administration Levetiracetam 500 mg 05/11/25 23:30 05/13/25 08:41 Levetiracetam 500 Mg Tablet PO 500 mg Q12HR BRENNAN Administration Metoprolol Tartrate 12.5 mg 05/11/25 23:30 05/13/25 08:41 Metoprolol Tartrate 12.5 Mg Tablet PO 12.5 mg Q12HR BRENNAN Administration Multivitamins Therapeutic 1 tablet 05/12/25 09:00 05/13/25 08:41 Multivitamins Therapeutic Tab (*Bkc) PO 1 tablet DAILY BRENNAN Administration Ondansetron HCl 4 mg 05/11/25 17:57 Ondansetron Inj 4 Mg/2 Ml Vial IV PUSH Q4H PRN Nausea Sodium Chloride 1 gm 05/12/25 09:00 05/13/25 08:41 Sodium Chloride 1 Gm Tablet PO 1 gm DAILY BRENNAN Administration Umeclidinium/Vilanterol 1 puff 05/12/25 08:00 05/13/25 07:42 Umeclidinium/Vilanterol 62.5-25 Mcg Ellipta INHALATION 1 puff DAILYRT BRENNAN Administration Vitamin D 125 mcg 05/12/25 09:00 05/13/25 08:39 Cholecalciferol (Vitamin D3) 125 Mcg (5,000 Units) Tablet PO 125 mcg DAILY BRENNAN Administration Radiology Results: ITS Impressions Head CT 05/11/25 15:34 Impression: 1.No acute intracranial abnormality. Foot X-Ray 05/11/25 15:58 Impression: Osteomyelitis detailed above Labs Labs: Laboratory Results - last 24 hr 05/13/25 05:34 Creatinine 0.71 Estim Creat Clear Calc 91 Estimated GFR > 60 Vancomycin Trough 11.4 Quality VTE Prophylaxis VTE prophylaxis: pharmacologic ordered
[2025-05-13] MEDS: SACCHAROMYCES BOULARDII 250 MG CAPSULE PO (16:26)
[2025-05-13] MEDS: VANCOMYCIN 1,250 MG/NS 250 ML 1,250 MG/250 ML BAG 100 MG IVPB (18:12)
[2025-05-14] VITALS (8 sets, daily range): BP systolic 107–147; BP diastolic 60–67; PULSE 64–106; RESP 14–20; TEMP 36.3–36.4; O2SAT 92–97
[2025-05-14] MEDS: CEFEPIME 2 GM in SODIUM CHLORIDE 0.9% IV 50 ML 100 ML IVPB ×2 (05:06→17:27)
[2025-05-14] MEDS: metroNIDAZOLE 500 MG/ISO 100ML 500 MG/100 ML BAG 100 MG IVPB ×3 (05:38→22:03)
[2025-05-14] MEDS: VANCOMYCIN 1,250 MG/NS 250 ML 1,250 MG/250 ML BAG 166.67 MG IVPB (06:45)
[2025-05-14 06:46] LABS: Estimated CRCL calculation 97 ml/min; Estimated Glomerular Filt Rate > 60
[2025-05-14] MEDS: UMECLIDINIUM/VILANTEROL 62.5-25 MCG ELLIPTA 1 PUFF INHALATION (08:05)
[2025-05-14 08:16] LABS: Platelet Count Result 130 k/mm3 (150-375)
[2025-05-14] MEDS: GABAPENTIN 300 MG CAPSULE 600 MG PO ×3 (09:16→17:27)
[2025-05-14] MEDS: MULTIVITAMINS THERAPEUTIC TAB (*BKC) 1 TABLET PO (09:16)
[2025-05-14] MEDS: METOPROLOL TARTRATE 12.5 MG TABLET PO ×2 (09:17→22:08)
[2025-05-14] MEDS: CYANOCOBALAMIN 500 MCG TABLET PO (09:17)
[2025-05-14] MEDS: FOLIC ACID 1 MG TABLET PO (09:19)
[2025-05-14] MEDS: CALCIUM CARBONATE (OSCAL) 500 MG TABLET PO (09:19)
[2025-05-14] MEDS: ASPIRIN 81 MG CHEWABLE TABLET PO (09:19)
[2025-05-14] MEDS: ENOXAPARIN 40 MG/0.4 ML SYRINGE SUB-Q (09:19)
[2025-05-14] MEDS: FUROSEMIDE 20 MG TABLET PO (09:19)
[2025-05-14] MEDS: ATORVASTATIN 10 MG TABLET PO (09:37)
[2025-05-14] MEDS: SODIUM CHLORIDE 1 GM TABLET PO (09:37)
[2025-05-14] MEDS: SACCHAROMYCES BOULARDII 250 MG CAPSULE PO ×3 (09:37→17:27)
[2025-05-14] MEDS: CHOLECALCIFEROL (VITAMIN D3) 125 MCG (5,000 UNITS) TABLET PO (09:37)
[2025-05-14] MEDS: DULoxetine HCL 60 MG CAPSULE.DR PO (09:37)
[2025-05-14] MEDS: CYANOCOBALAMIN 1,000 MCG TABLET 2000 MCG PO ×2 (09:38→22:10)
--- NOTE | 2025-05-14 09:53 | WPDINFPN2 ---
Progress Note: A&P Assessment and Plan (1) Ulcer of toe of left foot: Qualifiers: Non-pressure ulcer stage: with necrosis of bone Qualified Code(s): L97.524 - Non-pressure chronic ulcer of other part of left foot with necrosis of bone Code(s): L97.529 - Non-pressure chronic ulcer of other part of left foot with unspecified severity Status: Acute (2) Ulcer of great toe: Code(s): L97.509 - Non-pressure chronic ulcer of other part of unspecified foot with unspecified severity Status: Acute (3) Acute osteomyelitis of toe of left foot: Code(s): M86.172 - Other acute osteomyelitis, left ankle and foot Status: Acute (4) Ulcer of toe of right foot: Qualifiers: Non-pressure ulcer stage: unspecified non-pressure ulcer stage Qualified Code(s): L97.519 - Non-pressure chronic ulcer of other part of right foot with unspecified severity Code(s): L97.519 - Non-pressure chronic ulcer of other part of right foot with unspecified severity Status: Acute Plan # Left 1st toe plantar infected ulcer with x-ray evidence osteomyelitis. # Right foot with distal 2nd and 3rd toe dry eschar wounds but minimal surrounding inflammation. # Peripheral vascular disease including peripheral arterial disease suggested by arterial Doppler study. # Reported diagnosis of diabetes in the past. # Recent left his fracture, status post repair. Plan: -- surgery following. Patient originally opting for medical management; however, now reconsidering surgical amputation of left 1st toe. Per surgical service, proceeding with surgery will 1st require outpatient vascular surgery evaluation. For this reason, would not place PICC and would consider discharge on oral antibiotics as bridge treatment until vascular workup and amputation of left 1st toe could be performed. Ideally, would direct and oral antibiotic regimen toward coverage of wound culture organisms which remain pending. The on if cultures and a likely might consider a combination of Augmentin and doxycycline. Further recommendations to follow. -- after amputation and if bone margins negative for residual osteomyelitis, and surgical site without active infection, should be able to discontinue all antibiotics. -- meanwhile, follow left toe wound cultures. -- for now, continue cefepime, metronidazole, and vancomycin and, as per above, adjust antibiotics based on culture. Patient was seen via video telehealth consultation with the assistance of staff. Chart, data, and patient independently reviewed. Patient was [facility] at [facility] while I was located in my [place] office. Received verbal consent from patient. Subjective Date/time seen: 05/14/25 09:53 Interval history: 05/14/2025: Afebrile and vital signs stable. Creatinine 0.66. lower extremity arterial Doppler studies significant for arterial occlusive disease to the bilateral lower limbs with interval worsening and now with moderately decreased bilateral ABIs in moderately decreased right TBI and severely decreased left TBI. photos of bilateral feet wounds reviewed. Patient is now reconsidering left 1st toe amputation but this would require vascular surgery evaluation. Left toe wound culture 05/13: Pending Cefepime 2 g IV q.12 hours 05/12-- Metronidazole 500 mg IV Q 8 hours 05/11-- Vancomycin pharmacy to dose 05/13-- Review of Systems Review of Systems: All systems reviewed & are unremarkable except as noted in HPI and below Exam Narrative: He is awake and alert and nontoxic in appearance. Mental status is baseline. is at bedside. Directed exam significant for bilateral lower extremity stasis dermatitis skin changes. Bilateral feet with clean dressings. Left 1st toe ulceration is noted in the HPI. Left heel with stage I ulceration but no significant purulence or surrounding inflammation. Right tips of 2nd and 3rd and toe with dry tip wouns/eschars. Objective Data Vital Signs Vital Signs: Vital Signs - 24 hr 05/13/25 14:00 05/13/25 20:55 05/13/25 20:55 Temperature 96.5 F L Pulse Rate 87 90 Respiratory Rate 16 Blood Pressure 135/55 L Pulse Oximetry 100 100 Oxygen Delivery Nasal Cannula Oxygen Flow Rate 2 05/13/25 21:50 05/14/25 06:00 05/14/25 08:08 Temperature 97.7 F 97.4 F L Pulse Rate 91 95 92 Respiratory Rate 14 14 14 Blood Pressure 126/56 L 107/67 Pulse Oximetry 100 95 Oxygen Delivery Oxygen Flow Rate 05/14/25 09:17 Temperature Pulse Rate 64 Respiratory Rate Blood Pressure Pulse Oximetry Oxygen Delivery Oxygen Flow Rate Intake/Output Intake/Output: Intake & Output 05/11/25 05/12/25 05/13/25 05/14/25 23:59 23:59 23:59 23:59 Intake Total 50 1870 2170 790 Output Total 900 1400 825 Balance 50 970 770 -35 Meds/Results Medications: Active Medications Generic Name Dose Route Start Last Admin Trade Name Freq PRN Reason Stop Dose Admin Acetaminophen 650 mg 05/11/25 17:57 Acetaminophen 325 Mg Tablet PO Q4H PRN Mild Pain (1-3) or Fever Albuterol 1 puff 05/11/25 23:16 05/12/25 01:04 Albuterol Sulfate (*Sp) Aerosol 1 Puff INHALATION 1 puff Q4HRT PRN Administration Shortness Of Breath Or Wheezing Allopurinol 300 mg 05/12/25 09:00 05/14/25 09:16 Allopurinol 300 Mg Tablet PO 300 mg DAILY BRENNAN Administration Aspirin 81 mg 05/12/25 08:00 05/14/25 09:19 Aspirin 81 Mg Chewable Tablet PO 81 mg DAILY@0800 BRENNAN Administration Atorvastatin Calcium 10 mg 05/12/25 09:00 05/14/25 09:37 Atorvastatin 10 Mg Tablet PO 10 mg DAILY BRENNAN Administration Buspirone HCl 10 mg 05/12/25 09:00 05/14/25 09:37 Buspirone Hcl 10 Mg Tablet PO 10 mg Q12HR BRENNAN Administration Calcium Carbonate 500 mg 05/12/25 09:00 05/14/25 09:19 Calcium Carbonate (Oscal) 500 Mg Tablet PO 500 mg QAM BRENNAN Administration Cyanocobalamin 2,000 mcg 05/12/25 21:00 05/13/25 20:55 Cyanocobalamin 1,000 Mcg Tablet PO 2,000 mcg QHS BRENNAN Administration Cyanocobalamin 2,000 mcg 05/12/25 09:00 05/14/25 09:38 Cyanocobalamin 1,000 Mcg Tablet PO 2,000 mcg QAM BRENNAN Administration Cyanocobalamin 500 mcg 05/12/25 09:00 05/14/25 09:17 Cyanocobalamin 500 Mcg Tablet PO 500 mcg QAM BRENNAN Administration Dextrose 12.5 gm 05/11/25 17:57 Dextrose 50% 25 Gm/50 Ml Syringe IV PUSH PRN PRN Hypoglycemia Protocol Duloxetine HCl 60 mg 05/12/25 09:00 05/14/25 09:37 Duloxetine Hcl 60 Mg Capsule.Dr PO 60 mg DAILY BRENNAN Administration Enoxaparin Sodium 40 mg 05/14/25 09:00 05/14/25 09:19 Enoxaparin 40 Mg/0.4 Ml Syringe SUB-Q 40 mg DAILY BRENNAN Administration Folic Acid 1 mg 05/12/25 09:00 05/14/25 09:19 Folic Acid 1 Mg Tablet PO 1 mg DAILY BRENNAN Administration Furosemide 20 mg 05/12/25 09:00 05/14/25 09:19 Furosemide 20 Mg Tablet PO 20 mg DAILY BRENNAN Administration Gabapentin 600 mg 05/12/25 09:00 05/14/25 09:16 Gabapentin 300 Mg Capsule PO 600 mg TID BRENNAN Administration Glucagon 1 mg 05/11/25 17:57 Glucagon For Inj 1 Mg Vial IM PRN PRN Hypoglycemia Protocol Glucose 15 gm 05/11/25 17:57 Glucose Oral Gel 15 Gm Of Glucse In 37.5 Gm Tube PO PRN PRN Hypoglycemia Protocol Cefepime HCl 2 gm/ Sodium 50 mls @ 100 mls/hr 05/12/25 05:00 05/14/25 05:36 Chloride IVPB Infused Q12H BRENNAN Infusion Dextrose 1,000 mls @ 100 mls/hr 05/11/25 17:57 Dextrose 5% 1,000 Ml IVPB PRN PRN Hypoglycemia Protocol Metronidazole 500 mg in 100 mls @ 100 mls/hr 05/11/25 23:05 05/14/25 06:38 Flagyl 500 Mg/Iso Soln 100 Ml IVPB Infused Q8HR BRENNAN Infusion Vancomycin HCl 1,250 mg in 250 mls @ 166.667 mls/hr 05/13/25 07:00 05/14/25 06:45 Vancomycin 1,250 Mg/Ns 250 Ml IVPB 166.67 mls/hr Q12H BRENNAN Administration Levetiracetam 500 mg 05/11/25 23:30 05/14/25 09:19 Levetiracetam 500 Mg Tablet PO 500 mg Q12HR BRENNAN Administration Metoprolol Tartrate 12.5 mg 05/11/25 23:30 05/14/25 09:17 Metoprolol Tartrate 12.5 Mg Tablet PO 12.5 mg Q12HR BRENNAN Administration Multivitamins Therapeutic 1 tablet 05/12/25 09:00 05/14/25 09:16 Multivitamins Therapeutic Tab (*Bkc) PO 1 tablet DAILY BRENNAN Administration Ondansetron HCl 4 mg 05/11/25 17:57 Ondansetron Inj 4 Mg/2 Ml Vial IV PUSH Q4H PRN Nausea Saccharomyces Boulardii 250 mg 05/13/25 17:00 05/14/25 09:37 Saccharomyces Boulardii 250 Mg Capsule PO 250 mg TID BRENNAN Administration Sodium Chloride 1 gm 05/12/25 09:00 05/14/25 09:37 Sodium Chloride 1 Gm Tablet PO 1 gm DAILY BRENNAN Administration Umeclidinium/Vilanterol 1 puff 05/12/25 08:00 05/14/25 08:05 Umeclidinium/Vilanterol 62.5-25 Mcg Ellipta INHALATION 1 puff DAILYRT BRENNAN Administration Vitamin D 125 mcg 05/12/25 09:00 05/14/25 09:37 Cholecalciferol (Vitamin D3) 125 Mcg (5,000 Units) Tablet PO 125 mcg DAILY BRENNAN Administration Radiology Results: ITS Impressions Head CT 05/11/25 15:34 Impression: 1.No acute intracranial abnormality. Foot X-Ray 05/11/25 15:58 Impression: Osteomyelitis detailed above Ankle Brachial Index 05/13/25 17:09 IMPRESSION: 1. Arterial occlusive disease to the bilateral lower limbs interval worsening, now with moderately decreased bilateral ABIs and moderately decreased right TBI and severely decreased left TBI. Labs Labs: Laboratory Results - last 24 hr 05/14/25 05:15 Plt Count 130 L MPV 9.9 Creatinine 0.66 L Estim Creat Clear Calc 97 Estimated GFR > 60
--- NOTE | 2025-05-14 12:14 | P.PNGS_ITS ---
Progress Note: A&P Assessment and Plan (1) Acute osteomyelitis of toe of left foot: Code(s): M86.172 - Other acute osteomyelitis, left ankle and foot Status: Acute Assessment and Plan: * Bilateral toe ulcers and left heel ulcer. The left great toe ulcer is at the area of findings of osteomyelitis on plain films. * Patient who previously declined surgery, now states that he is agreeable to amputation if necessary. 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 Patient was previously referred to a vascular surgeon by his PCP, but was never able to follow-up with them. Since patient is stable, he will need to be evaluated by a vascular specialist prior to proceeding with left great toe amputation. * ID consulted yesterday and gave recommendations for outpatient antibiotic treatment. Suggested continuing cefepime, Flagyl, and vanc while in the hospital. Wound culture still pending. ID also suggested placement of a PICC line. As of this morning, it had not yet been placed. * Continue local wound care with silver gel dressing changes daily. * Keep heels elevated off bed/waffle boots and pressure offloading. Plan I have discussed the patient's case and plan of care with Dr. Kaiser. Subjective Subjective Date/Time Seen: 05/14/25 12:14 Patient reports: no new complaints and afebrile Interval history: Patient now states that he will do ?whatever it takes? to get better. He is now considering amputation. He states that if he has surgery, he would like to walk out of the hospital. I discussed with him the necessity for evaluation by vascular surgery. Exam Const: General: comfortable and no acute distress Extrem: Other: Ulcer on left great toe to distal plantar surface with roughly 70% pink tissue and a central area with menard soft necrotic tissue. No purulence drainage. Left heel ulcer with 90% pale pink wound bed and small darkened non blanchable area center. Right 2nd toe with dry firm ribera eschar at distal toe. Right 3rd toe with firm eschar to distal plantar toe with minimal purulence drainage expressed. Objective Data Vital Signs Vital Signs: Vital Signs - 24 hr 05/13/25 14:00 05/13/25 20:55 05/13/25 20:55 Temperature 96.5 F L Pulse Rate 87 90 Respiratory Rate 16 Blood Pressure 135/55 L Pulse Oximetry 100 100 Oxygen Delivery Nasal Cannula Oxygen Flow Rate 2 05/13/25 21:50 05/14/25 06:00 05/14/25 08:00 Temperature 97.7 F 97.4 F L Pulse Rate 91 95 Respiratory Rate 14 14 Blood Pressure 126/56 L 107/67 Pulse Oximetry 100 95 97 Oxygen Delivery Nasal Cannula Oxygen Flow Rate 2 05/14/25 08:08 05/14/25 09:17 Temperature Pulse Rate 92 64 Respiratory Rate 14 Blood Pressure Pulse Oximetry Oxygen Delivery Oxygen Flow Rate Intake/Output Intake/Output: Intake & Output 05/11/25 05/12/25 05/13/25 05/14/25 23:59 23:59 23:59 23:59 Intake Total 50 1870 2170 790 Output Total 900 1400 825 Balance 50 970 770 -35 Meds/Results Medications: Active Medications Generic Name Dose Route Start Last Admin Trade Name Freq PRN Reason Stop Dose Admin Acetaminophen 650 mg 05/11/25 17:57 Acetaminophen 325 Mg Tablet PO Q4H PRN Mild Pain (1-3) or Fever Albuterol 1 puff 05/11/25 23:16 05/12/25 01:04 Albuterol Sulfate (*Sp) Aerosol 1 Puff INHALATION 1 puff Q4HRT PRN Administration Shortness Of Breath Or Wheezing Allopurinol 300 mg 05/12/25 09:00 05/14/25 09:16 Allopurinol 300 Mg Tablet PO 300 mg DAILY BRENNAN Administration Aspirin 81 mg 05/12/25 08:00 05/14/25 09:19 Aspirin 81 Mg Chewable Tablet PO 81 mg DAILY@0800 BRENNAN Administration Atorvastatin Calcium 10 mg 05/12/25 09:00 05/14/25 09:37 Atorvastatin 10 Mg Tablet PO 10 mg DAILY BRENNAN Administration Buspirone HCl 10 mg 05/12/25 09:00 05/14/25 09:37 Buspirone Hcl 10 Mg Tablet PO 10 mg Q12HR BRENNAN Administration Calcium Carbonate 500 mg 05/12/25 09:00 05/14/25 09:19 Calcium Carbonate (Oscal) 500 Mg Tablet PO 500 mg QAM BRENNAN Administration Cyanocobalamin 2,000 mcg 05/12/25 21:00 05/13/25 20:55 Cyanocobalamin 1,000 Mcg Tablet PO 2,000 mcg QHS BRENNAN Administration Cyanocobalamin 2,000 mcg 05/12/25 09:00 05/14/25 09:38 Cyanocobalamin 1,000 Mcg Tablet PO 2,000 mcg QAM BRENNAN Administration Cyanocobalamin 500 mcg 05/12/25 09:00 05/14/25 09:17 Cyanocobalamin 500 Mcg Tablet PO 500 mcg QAM BRENNAN Administration Dextrose 12.5 gm 05/11/25 17:57 Dextrose 50% 25 Gm/50 Ml Syringe IV PUSH PRN PRN Hypoglycemia Protocol Duloxetine HCl 60 mg 05/12/25 09:00 05/14/25 09:37 Duloxetine Hcl 60 Mg Capsule. PO 60 mg DAILY BRENNAN Administration Enoxaparin Sodium 40 mg 05/14/25 09:00 05/14/25 09:19 Enoxaparin 40 Mg/0.4 Ml Syringe SUB-Q 40 mg DAILY BRENNAN Administration Folic Acid 1 mg 05/12/25 09:00 05/14/25 09:19 Folic Acid 1 Mg Tablet PO 1 mg DAILY BRENNAN Administration Furosemide 20 mg 05/12/25 09:00 05/14/25 09:19 Furosemide 20 Mg Tablet PO 20 mg DAILY BRENNAN Administration Gabapentin 600 mg 05/12/25 09:00 05/14/25 09:16 Gabapentin 300 Mg Capsule PO 600 mg TID BRENNAN Administration Glucagon 1 mg 05/11/25 17:57 Glucagon For Inj 1 Mg Vial IM PRN PRN Hypoglycemia Protocol Glucose 15 gm 05/11/25 17:57 Glucose Oral Gel 15 Gm Of Glucse In 37.5 Gm Tube PO PRN PRN Hypoglycemia Protocol Cefepime HCl 2 gm/ Sodium 50 mls @ 100 mls/hr 05/12/25 05:00 05/14/25 05:36 Chloride IVPB Infused Q12H BRENNAN Infusion Dextrose 1,000 mls @ 100 mls/hr 05/11/25 17:57 Dextrose 5% 1,000 Ml IVPB PRN PRN Hypoglycemia Protocol Metronidazole 500 mg in 100 mls @ 100 mls/hr 05/11/25 23:05 05/14/25 06:38 Flagyl 500 Mg/Iso Soln 100 Ml IVPB Infused Q8HR BRENNAN Infusion Vancomycin HCl 1,250 mg in 250 mls @ 166.667 mls/hr 05/13/25 07:00 05/14/25 06:45 Vancomycin 1,250 Mg/Ns 250 Ml IVPB 166.67 mls/hr Q12H BRENNAN Administration Levetiracetam 500 mg 05/11/25 23:30 05/14/25 09:19 Levetiracetam 500 Mg Tablet PO 500 mg Q12HR BRENNAN Administration Metoprolol Tartrate 12.5 mg 05/11/25 23:30 05/14/25 09:17 Metoprolol Tartrate 12.5 Mg Tablet PO 12.5 mg Q12HR BRENNAN Administration Multivitamins Therapeutic 1 tablet 05/12/25 09:00 05/14/25 09:16 Multivitamins Therapeutic Tab (*Bkc) PO 1 tablet DAILY BRENNAN Administration Ondansetron HCl 4 mg 05/11/25 17:57 Ondansetron Inj 4 Mg/2 Ml Vial IV PUSH Q4H PRN Nausea Saccharomyces Boulardii 250 mg 05/13/25 17:00 05/14/25 09:37 Saccharomyces Boulardii 250 Mg Capsule PO 250 mg TID BRENNAN Administration Sodium Chloride 1 gm 05/12/25 09:00 05/14/25 09:37 Sodium Chloride 1 Gm Tablet PO 1 gm DAILY BRENNAN Administration Umeclidinium/Vilanterol 1 puff 05/12/25 08:00 05/14/25 08:05 Umeclidinium/Vilanterol 62.5-25 Mcg Ellipta INHALATION 1 puff DAILYRT BRENNAN Administration Vitamin D 125 mcg 05/12/25 09:00 05/14/25 09:37 Cholecalciferol (Vitamin D3) 125 Mcg (5,000 Units) Tablet PO 125 mcg DAILY BRENNAN Administration Radiology Results: ITS Impressions Head CT 05/11/25 15:34 Impression: 1.No acute intracranial abnormality. Foot X-Ray 05/11/25 15:58 Impression: Osteomyelitis detailed above Ankle Brachial Index 05/13/25 17:09 IMPRESSION: 1. Arterial occlusive disease to the bilateral lower limbs interval worsening, now with moderately decreased bilateral ABIs and moderately decreased right TBI and severely decreased left TBI. Labs Labs: Laboratory Results - last 24 hr 05/14/25 05:15 Plt Count 130 L MPV 9.9 Creatinine 0.66 L Estim Creat Clear Calc 97 Estimated GFR > 60
--- NOTE | 2025-05-14 13:10 | P.PNIM_ITS ---
Progress Note: A&P Assessment and Plan (1) Ulcer of toe of left foot: Qualifiers: Non-pressure ulcer stage: with necrosis of bone Qualified Code(s): L97.524 - Non-pressure chronic ulcer of other part of left foot with necrosis of bone Code(s): L97.529 - Non-pressure chronic ulcer of other part of left foot with unspecified severity Status: Acute Assessment and Plan: - ulceration to left first toe - Foot XR, L: Osteomyelitis detailed above - Foot XR, R: No acute fracture or malalignment. - General Surgery consulted - wound RN consulted - started on Vancomycin, Cefepime and Flagyl on 05/11 - check FLORES - surgery consulted will hold lovenox tonight in case surgery will be scheduled -------- pt does ot wnat to do surgery, will resume lovenox ID is on board- once bc back and negative- will order picc line for antibiotics Prelim BC negative (2) Ulcer of toe of right foot: Qualifiers: Non-pressure ulcer stage: unspecified non-pressure ulcer stage Qualified Code(s): L97.519 - Non-pressure chronic ulcer of other part of right foot with unspecified severity Code(s): L97.519 - Non-pressure chronic ulcer of other part of right foot with unspecified severity Status: Acute Assessment and Plan: - see above - ulceration noted to right 2nd and 3rd toe (3) Alcohol dependence: Qualifiers: Substance use status: unspecified alcohol-induced disorder Qualified Code(s): F10.29 - Alcohol dependence with unspecified alcohol-induced disorder Code(s): F10.20 - Alcohol dependence, uncomplicated Status: Chronic Assessment and Plan: - last ETOH intake 1 month ago prior to admission at [facility] for a hip fracture - facial tremor and BUE tremor noted on exam (4) Cirrhosis of liver: Qualifiers: Hepatic cirrhosis type: alcoholic cirrhosis Ascites presence: without ascites Qualified Code(s): K70.30 - Alcoholic cirrhosis of liver without ascites Code(s): K74.60 - Unspecified cirrhosis of liver Status: Chronic Assessment and Plan: - secondary to ETOH, no longer drinking - continue folic acid, multivitamin, and B12 (5) COPD (chronic obstructive pulmonary disease): Qualifiers: COPD type: unspecified COPD Qualified Code(s): J44.9 - Chronic obstructive pulmonary disease, unspecified Code(s): J44.9 - Chronic obstructive pulmonary disease, unspecified Status: Chronic Assessment and Plan: - continue albuterol inhaler p.r.n. (6) Hypertension: Qualifiers: Hypertension type: primary hypertension Qualified Code(s): I10 - Ess ential (primary) hypertension Code(s): I10 - Essential (primary) hypertension Status: Chronic Assessment and Plan: - chronic, currently 153/87 - continue home medications: Metoprolol - monitor (7) Smoker: Code(s): F17.200 - Nicotine dependence, unspecified, uncomplicated Status: Acute Assessment and Plan: pt had been smoking since he was 11 years old and about 3 pad, cut way down now offered nicotine patch- refused for now smoking cessation counselling completed Plan Diet: Heart healthy GI Prophylaxis: N/a DVT Prophylaxis: Lovenox SQ IV fluids: None Lines/Tubes: Peripheral IV Code Status: Full code Time Spent With Patient Time with patient: Greater than 35 minutes Subjective Date/time seen: 05/14/25 13:10 Interval history: 69 y/o M with PMH of HLD, dysphagia, chronic respiratory failure on home O2, alcoholic cirrhosis, anemia, diabetes, COPD, hepatitis-A, PVD, and thrombocytopenia presents here with bilateral foot wounds. The patient presents here from home on 05/11 for further evaluation of bilateral foot wounds. The patient and the patient's provided the following history. The patient sustained a left hip fracture approximately 1 month ago and underwent surgery at [facility]. He was then discharged to [facility] for rehab. He was discharged from that facility yesterday (05/10). While at that facility the patient was reportedly rubbing his feet against the bottom frame of the bed per his and she 1st noticed he had developed wounds to his bilateral feet around 2 days ago/today. The patient has a history of diabetes, however no longer considered DM and no longer on medications. She additionally reports he has been more lethargic and sleeping more than usual since his arrival back home from the rehab facility. He denies any alcohol use since being discharged home from [facility], believes the last time he drank was before he was seen at the OSH for his hip. He reports chills and discomfort in his feet. Denies fever, body aches, nausea, vomiting, or diarrhea. Initial VS at presentation: 98.2? F, HR 94, R 18, 128/75, and 99% on RA. ED workup showed: No leukocytosis, hemoglobin 11.5, and normal coags, no significant abnormalities on ABG, no significant electrolyte derangements, creatinine 0.95 and GFR >60, glucose 115, lactic 1.6, CRP 7.4, BNP 866, and UA equivocal for infection. UDS positive for barbiturates. Head CT showed no acute intracranial abnormality. Foot XR (R) showed no acute fracture or malalignment. Foot XR (L) showed osteomyelitis, osseous destruction noted of the distal aspect of the distal phalanx 1st digit. Pt reports that he was diabetic at some point but his hga1c improved and he no longer diabetic. he is not on any regimen at home. Surgery consult is placed. Will hold [employer] in case if surgery will be scheduled in am. 05/13 ID is on board. pt is doing well. no nausea/vomiting. 05/14 pt is seen and examined. He is doing well. No acute complains. IV antibiotics. Review of Systems Review of Systems: All systems reviewed & are unremarkable except as noted in HPI and below Exam Const: General: comfortable and no acute distress Other: , male, elderly appearing, chronically ill-appearing HENMT: Face/Nose/Sinus: Normal nares present Mouth: Yes moist mucous membranes Eyes: General: appearance normal, both eyes and all related structures Sclera: sclerae normal Pupils: Equal, round and reactive pupils present EOM: EOMs intact bilaterally Resp: Effort & Inspection: normal respiratory effort Auscultation: clear to auscultation bilaterally Cardio: Rate: regular rate Rhythm: regular rhythm Other: S1-S2 present without murmur, rub, ectopy GI: Other: Abdomen soft, nondistended, nontender. Normoactive bowel sounds in all quadrants. Skin: General skin exam: normal color, no rashes or lesions noted and wounds noted Wounds: wounds noted Other: Positive wound to left 1st toe pad with purulent drainage at the center of the ulcer, mild foul odor. Surrounding callus with diffuse erythema and swelling. Small ulcerative wound to the left 1st toe MTP. Small ulcerative wound to tip of right 2nd and 3rd toes with surrounding induration. Scant erythema. Ulceration to left posterior heel without drainage, no signs of infection. Neuro: Cranial nerves: Yes Equal, round and reactive pupils present Speech: normal speech Motor exam (neuro): 5/5 motor strength present throughout Sensory Exam: normal sensation Other: A&O x3, disorientated to year. Resting tremor noted to mouth and bilateral upper extremities, worsens with intention. Extrem: General: normal exam except as noted Other: Hyper pigmentation noted to bilateral lower extremities, DP pulses poorly palpable. Psych: Mental Status: mental status grossly normal Other: Fair to poor insight judgment at present, anxious. Objective Data Vital Signs Vital Signs: Vital Signs - 24 hr 05/13/25 14:00 05/13/25 20:55 05/13/25 20:55 Temperature 96.5 F L Pulse Rate 87 90 Respiratory Rate 16 Blood Pressure 135/55 L Pulse Oximetry 100 100 Oxygen Delivery Nasal Cannula Oxygen Flow Rate 2 05/13/25 21:50 05/14/25 06:00 05/14/25 08:00 Temperature 97.7 F 97.4 F L Pulse Rate 91 95 Respiratory Rate 14 14 Blood Pressure 126/56 L 107/67 Pulse Oximetry 100 95 97 Oxygen Delivery Nasal Cannula Oxygen Flow Rate 2 05/14/25 08:08 05/14/25 09:17 Temperature Pulse Rate 92 64 Respiratory Rate 14 Blood Pressure Pulse Oximetry Oxygen Delivery Oxygen Flow Rate Intake/Output Intake/Output: Intake & Output 05/11/25 05/12/25 05/13/25 05/14/25 23:59 23:59 23:59 23:59 Intake Total 50 1870 2170 790 Output Total 900 1400 825 Balance 50 970 770 -35 Meds/Results Medications: Active Medications Generic Name Dose Route Start Last Admin Trade Name Freq PRN Reason Stop Dose Admin Acetaminophen 650 mg 05/11/25 17:57 Acetaminophen 325 Mg Tablet PO Q4H PRN Mild Pain (1-3) or Fever Albuterol 1 puff 05/11/25 23:16 05/12/25 01:04 Albuterol Sulfate (*Sp) Aerosol 1 Puff INHALATION 1 puff Q4HRT PRN Administration Shortness Of Breath Or Wheezing Allopurinol 300 mg 05/12/25 09:00 05/14/25 09:16 Allopurinol 300 Mg Tablet PO 300 mg DAILY BRENNAN Administration Aspirin 81 mg 05/12/25 08:00 05/14/25 09:19 Aspirin 81 Mg Chewable Tablet PO 81 mg DAILY@0800 BRENNAN Administration Atorvastatin Calcium 10 mg 05/12/25 09:00 05/14/25 09:37 Atorvastatin 10 Mg Tablet PO 10 mg DAILY BRENNAN Administration Buspirone HCl 10 mg 05/12/25 09:00 05/14/25 09:37 Buspirone Hcl 10 Mg Tablet PO 10 mg Q12HR BRENNAN Administration Calcium Carbonate 500 mg 05/12/25 09:00 05/14/25 09:19 Calcium Carbonate (Oscal) 500 Mg Tablet PO 500 mg QAM BRENNAN Administration Cyanocobalamin 2,000 mcg 05/12/25 21:00 05/13/25 20:55 Cyanocobalamin 1,000 Mcg Tablet PO 2,000 mcg QHS BRENNAN Administration Cyanocobalamin 2,000 mcg 05/12/25 09:00 05/14/25 09:38 Cyanocobalamin 1,000 Mcg Tablet PO 2,000 mcg QAM BRENNAN Administration Cyanocobalamin 500 mcg 05/12/25 09:00 05/14/25 09:17 Cyanocobalamin 500 Mcg Tablet PO 500 mcg QAM BRENNAN Administration Dextrose 12.5 gm 05/11/25 17:57 Dextrose 50% 25 Gm/50 Ml Syringe IV PUSH PRN PRN Hypoglycemia Protocol Duloxetine HCl 60 mg 05/12/25 09:00 05/14/25 09:37 Duloxetine Hcl 60 Mg Capsule.Dr PO 60 mg DAILY BRENNAN Administration Enoxaparin Sodium 40 mg 05/14/25 09:00 05/14/25 09:19 Enoxaparin 40 Mg/0.4 Ml Syringe SUB-Q 40 mg DAILY BRENNAN Administration Folic Acid 1 mg 05/12/25 09:00 05/14/25 09:19 Folic Acid 1 Mg Tablet PO 1 mg DAILY BRENNAN Administration Furosemide 20 mg 05/12/25 09:00 05/14/25 09:19 Furosemide 20 Mg Tablet PO 20 mg DAILY BRENNAN Administration Gabapentin 600 mg 05/12/25 09:00 05/14/25 09:16 Gabapentin 300 Mg Capsule PO 600 mg TID BRENNAN Administration Glucagon 1 mg 05/11/25 17:57 Glucagon For Inj 1 Mg Vial IM PRN PRN Hypoglycemia Protocol Glucose 15 gm 05/11/25 17:57 Glucose Oral Gel 15 Gm Of Glucse In 37.5 Gm Tube PO PRN PRN Hypoglycemia Protocol Cefepime HCl 2 gm/ Sodium 50 mls @ 100 mls/hr 05/12/25 05:00 05/14/25 05:36 Chloride IVPB Infused Q12H BRENNAN Infusion Dextrose 1,000 mls @ 100 mls/hr 05/11/25 17:57 Dextrose 5% 1,000 Ml IVPB PRN PRN Hypoglycemia Protocol Metronidazole 500 mg in 100 mls @ 100 mls/hr 05/11/25 23:05 05/14/25 06:38 Flagyl 500 Mg/Iso Soln 100 Ml IVPB Infused Q8HR BRENNAN Infusion Vancomycin HCl 1,250 mg in 250 mls @ 166.667 mls/hr 05/13/25 07:00 05/14/25 06:45 Vancomycin 1,250 Mg/Ns 250 Ml IVPB 166.67 mls/hr Q12H BRENNAN Administration Levetiracetam 500 mg 05/11/25 23:30 05/14/25 09:19 Levetiracetam 500 Mg Tablet PO 500 mg Q12HR BRENNAN Administration Metoprolol Tartrate 12.5 mg 05/11/25 23:30 05/14/25 09:17 Metoprolol Tartrate 12.5 Mg Tablet PO 12.5 mg Q12HR BRENNAN Administration Multivitamins Therapeutic 1 tablet 05/12/25 09:00 05/14/25 09:16 Multivitamins Therapeutic Tab (*Bkc) PO 1 tablet DAILY BRENNAN Administration Ondansetron HCl 4 mg 05/11/25 17:57 Ondansetron Inj 4 Mg/2 Ml Vial IV PUSH Q4H PRN Nausea Saccharomyces Boulardii 250 mg 05/13/25 17:00 05/14/25 09:37 Saccharomyces Boulardii 250 Mg Capsule PO 250 mg TID BRENNAN Administration Sodium Chloride 1 gm 05/12/25 09:00 05/14/25 09:37 Sodium Chloride 1 Gm Tablet PO 1 gm DAILY BRENNAN Administration Umeclidinium/Vilanterol 1 puff 05/12/25 08:00 05/14/25 08:05 Umeclidinium/Vilanterol 62.5-25 Mcg Ellipta INHALATION 1 puff DAILYRT BRENNAN Administration Vitamin D 125 mcg 05/12/25 09:00 05/14/25 09:37 Cholecalciferol (Vitamin D3) 125 Mcg (5,000 Units) Tablet PO 125 mcg DAILY BRENNAN Administration Radiology Results: ITS Impressions Head CT 05/11/25 15:34 Impression: 1.No acute intracranial abnormality. Foot X-Ray 05/11/25 15:58 Impression: Osteomyelitis detailed above Ankle Brachial Index 05/13/25 17:09 IMPRESSION: 1. Arterial occlusive disease to the bilateral lower limbs interval worsening, now with moderately decreased bilateral ABIs and moderately decreased right TBI and severely decreased left TBI. Labs Labs: Laboratory Results - last 24 hr 05/14/25 05:15 Plt Count 130 L MPV 9.9 Creatinine 0.66 L Estim Creat Clear Calc 97 Estimated GFR > 60 Quality VTE Prophylaxis VTE prophylaxis: pharmacologic ordered
[2025-05-15] VITALS (8 sets, daily range): BP systolic 117–129; BP diastolic 50–77; PULSE 90–100; RESP 14–17; TEMP 36.1–36.4; O2SAT 90–100
[2025-05-15] MEDS: VANCOMYCIN HCL 1,000 MG in SODIUM CHLORIDE 0.9% IV 250 ML 250 MG IVPB (03:08)
[2025-05-15] MEDS: CEFEPIME 2 GM in SODIUM CHLORIDE 0.9% IV 50 ML 100 ML IVPB (05:00)
[2025-05-15 05:54] LABS: Platelet Count Result 137 k/mm3 (150-375)
[2025-05-15] MEDS: metroNIDAZOLE 500 MG/ISO 100ML 500 MG/100 ML BAG 100 MG IVPB (06:21)
[2025-05-15] MEDS: UMECLIDINIUM/VILANTEROL 62.5-25 MCG ELLIPTA 1 PUFF INHALATION (07:45)
--- NOTE | 2025-05-15 09:02 | PM.IMPN ---
Progress Note: A&P Assessment and Plan (1) Ulcer of toe of left foot: Qualifiers: Non-pressure ulcer stage: with necrosis of bone Qualified Code(s): L97.524 - Non-pressure chronic ulcer of other part of left foot with necrosis of bone Code(s): L97.529 - Non-pressure chronic ulcer of other part of left foot with unspecified severity Status: Acute Assessment and Plan: Ulceration to left first toe - Foot XR, L: Osteomyelitis - Foot XR, R: No acute fracture or malalignment. - FLORES: Arterial occlusive disease to the bilateral lower limbs interval worsening, now with moderately decreased bilateral ABIs and moderately decreased right TBI and severely decreased left TBI. - Antibiotics: started on Vancomycin, Cefepime and Flagyl on 05/11, transitioned to Augmentin and doxycycline on 05/15 per ID - Wound RN consulted - General Surgery consulted patient wants to proceed with IV antibiotics and conservative management, will get ID consultation. See ID recs below. wound care consultation as well for this wound as well as right foot wounds postop shoe for transfers/ambulating at home. Continue local wound care, which his plans to continue at home. - ID consulted Patient originally opting for medical management; however, now reconsidering surgical amputation of left 1st toe. Per surgical service, proceeding with surgery will 1st require outpatient vascular surgery evaluation. For this reason, would not place PICC and would consider discharge on oral antibiotics as bridge treatment until vascular workup and amputation of left 1st toe could be performed. Ideally, would direct and oral antibiotic regimen toward coverage of wound culture organisms which remain pending. Transitioned to Augmentin and doxycycline on 05/15 per ID. Patient has not been ambulatory per RN since admission. PT/OT ordered. (2) Ulcer of toe of right foot: Qualifiers: Non-pressure ulcer stage: unspecified non-pressure ulcer stage Qualified Code(s): L97.519 - Non-pressure chronic ulcer of other part of right foot with unspecified severity Code(s): L97.519 - Non-pressure chronic ulcer of other part of right foot with unspecified severity Status: Acute Assessment and Plan: - see above - ulceration noted to right 2nd and 3rd toe (3) Alcohol dependence: Qualifiers: Substance use status: unspecified alcohol-induced disorder Qualified Code(s): F10.29 - Alcohol dependence with unspecified alcohol-induced disorder Code(s): F10.20 - Alcohol dependence, uncomplicated Status: Chronic Assessment and Plan: - last ETOH intake 1 month ago prior to admission at [facility] for a hip fracture - No noted tremors on exam (4) Cirrhosis of liver: Qualifiers: Ascites presence: without ascites Hepatic cirrhosis type: alcoholic cirrhosis Qualified Code(s): K70.30 - Alcoholic cirrhosis of liver without ascites Code(s): K74.60 - Unspecified cirrhosis of liver Status: Chronic Assessment and Plan: - secondary to ETOH, no longer drinking - continue folic acid, multivitamin, and B12 (5) COPD (chronic obstructive pulmonary disease): Qualifiers: COPD type: unspecified COPD Qualified Code(s): J44.9 - Chronic obstructive pulmonary disease, unspecified Code(s): J44.9 - Chronic obstructive pulmonary disease, unspecified Status: Chronic Assessment and Plan: - continue albuterol inhaler p.r.n. (6) Hypertension: Qualifiers: Hypertension type: primary hypertension Qualified Code(s): I10 - Essential (primary) hypertension Code(s): I10 - Essential (primary) hypertension Status: Chronic Assessment and Plan: Chronic, continue home medications - lasix 20 mg daily - metoprolol 12.5 BID - blood pressures remains stable (7) Smoker: Code(s): F17.200 - Nicotine dependence, unspecified, uncomplicated Status: Acute Assessment and Plan: pt had been smoking since he was 11 years old and about 3 pad, cut way down now offered nicotine patch- refused for now smoking cessation counselling completed Time Spent With Patient Time with patient: 25 - 35 minutes Subjective Date/time seen: 05/15/25 09:02 Interval history: 69 year old male with PMH of HLD, dysphagia, chronic respiratory failure on home O2, alcoholic cirrhosis, anemia, diabetes, COPD, hepatitis-A, PVD, and thrombocytopenia presents to the hospital with bilateral foot wounds. Patient is pleasant lying comfortably in bed. He has no complaints at this time denying chest pain, shortness a breath, palpitations, nausea/vomiting, abdominal pain, and pain to the lower extremities. Review of Systems Review of Systems: All systems reviewed & are unremarkable except as noted in HPI and below Exam Narrative: AF HR 90 RR 16 Spo2 95 BP 122/50 General: male in no acute respiratory distress who is nontoxic appearing, lying semi recumbent in bed. HEENT: Normocephalic. Atraumatic. Extraocular movement intact. Sclera clear and anicteric. No facial asymmetry. Chest: Lungs are clear to auscultation bilaterally. No wheezes or crackles. CV: Heart was regular rate and rhythm. Abd: Abdomen was soft. Nontender. Nondistended. Positive bowel sounds. Ext: No clubbing, cyanosis, or edema. Dressings to the BLE that are clean dry and intact. Neuro: Patient is alert and oriented x4. Speech is clear. Objective Data Vital Signs Vital Signs: Vital Signs - 24 hr 05/14/25 09:17 05/14/25 13:53 05/14/25 21:08 Temperature 97.5 F L 97.6 F Pulse Rate 64 87 106 H Respiratory Rate 20 18 Blood Pressure 115/60 147/63 H Pulse Oximetry 97 95 Oxygen Delivery Fraction of Inspired Oxygen 05/14/25 22:03 05/14/25 22:04 05/14/25 22:08 Temperature Pulse Rate 105 H 90 Respiratory Rate Blood Pressure Pulse Oximetry 92 Oxygen Delivery Room Air Room Air Fraction of Inspired Oxygen 05/15/25 05:35 05/15/25 07:47 05/15/25 07:48 Temperature 97.2 F L Pulse Rate 95 100 Respiratory Rate 14 16 Blood Pressure 129/77 Pulse Oximetry 92 90 Oxygen Delivery Room Air Fraction of Inspired Oxygen 05/15/25 08:00 Temperature Pulse Rate Respiratory Rate Blood Pressure Pulse Oximetry 90 Oxygen Delivery Room Air Fraction of Inspired Oxygen Intake/Output Intake/Output: Intake & Output 05/12/25 05/13/25 05/14/25 05/15/25 23:59 23:59 23:59 23:59 Intake Total 1870 2170 1520 Output Total 900 1400 2625 500 Balance 970 770 -1105 -500 Meds/Results Medications: Active Medications Generic Name Dose Route Start Last Admin Trade Name Freq PRN Reason Stop Dose Admin Acetaminophen 650 mg 05/11/25 17:57 Acetaminophen 325 Mg Tablet PO Q4H PRN Mild Pain (1-3) or Fever Albuterol 1 puff 05/11/25 23:16 05/12/25 01:04 Albuterol Sulfate (*Sp) Aerosol 1 Puff INHALATION 1 puff Q4HRT PRN Administration Shortness Of Breath Or Wheezing Allopurinol 300 mg 05/12/25 09:00 05/14/25 09:16 Allopurinol 300 Mg Tablet PO 300 mg DAILY BRENNAN Administration Aspirin 81 mg 05/12/25 08:00 05/14/25 09:19 Aspirin 81 Mg Chewable Tablet PO 81 mg DAILY@0800 BRENNAN Administration Atorvastatin Calcium 10 mg 05/12/25 09:00 05/14/25 09:37 Atorvastatin 10 Mg Tablet PO 10 mg DAILY BRENNAN Administration Buspirone HCl 10 mg 05/12/25 09:00 05/14/25 22:08 Buspirone Hcl 10 Mg Tablet PO 10 mg Q12HR BRENNAN Administration Calcium Carbonate 500 mg 05/12/25 09:00 05/14/25 09:19 Calcium Carbonate (Oscal) 500 Mg Tablet PO 500 mg QAM BRENNAN Administration Cyanocobalamin 2,000 mcg 05/12/25 21:00 05/14/25 22:10 Cyanocobalamin 1,000 Mcg Tablet PO 2,000 mcg QHS BRENNAN Administration Cyanocobalamin 2,000 mcg 05/12/25 09:00 05/14/25 09:38 Cyanocobalamin 1,000 Mcg Tablet PO 2,000 mcg QAM BRENNAN Administration Cyanocobalamin 500 mcg 05/12/25 09:00 05/14/25 09:17 Cyanocobalamin 500 Mcg Tablet PO 500 mcg QAM BRENNAN Administration Dextrose 12.5 gm 05/11/25 17:57 Dextrose 50% 25 Gm/50 Ml Syringe IV PUSH PRN PRN Hypoglycemia Protocol Duloxetine HCl 60 mg 05/12/25 09:00 05/14/25 09:37 Duloxetine Hcl 60 Mg Capsule.Dr PO 60 mg DAILY BRENNAN Administration Enoxaparin Sodium 40 mg 05/14/25 09:00 05/14/25 09:19 Enoxaparin 40 Mg/0.4 Ml Syringe SUB-Q 40 mg DAILY BRENNAN Administration Folic Acid 1 mg 05/12/25 09:00 05/14/25 09:19 Folic Acid 1 Mg Tablet PO 1 mg DAILY BRENNAN Administration Furosemide 20 mg 05/12/25 09:00 05/14/25 09:19 Furosemide 20 Mg Tablet PO 20 mg DAILY BRENNAN Administration Gabapentin 600 mg 05/12/25 09:00 05/14/25 17:27 Gabapentin 300 Mg Capsule PO 600 mg TID BRENNAN Administration Glucagon 1 mg 05/11/25 17:57 Glucagon For Inj 1 Mg Vial IM PRN PRN Hypoglycemia Protocol Glucose 15 gm 05/11/25 17:57 Glucose Oral Gel 15 Gm Of Glucse In 37.5 Gm Tube PO PRN PRN Hypoglycemia Protocol Cefepime HCl 2 gm/ Sodium 50 mls @ 100 mls/hr 05/12/25 05:00 05/15/25 05:00 Chloride IVPB 100 mls/hr Q12H BRENNAN Administration Dextrose 1,000 mls @ 100 mls/hr 05/11/25 17:57 Dextrose 5% 1,000 Ml IVPB PRN PRN Hypoglycemia Protocol Metronidazole 500 mg in 100 mls @ 100 mls/hr 05/11/25 23:05 05/15/25 06:21 Flagyl 500 Mg/Iso Soln 100 Ml IVPB 100 mls/hr Q8HR BRENNAN Administration Vancomycin HCl 1,000 mg/ 250 mls @ 250 mls/hr 05/15/25 03:00 05/15/25 03:08 Sodium Chloride IVPB 250 mls/hr Q12H BRENNAN Administration Levetiracetam 500 mg 05/11/25 23:30 05/14/25 22:10 Levetiracetam 500 Mg Tablet PO 500 mg Q12HR BRENNAN Administration Metoprolol Tartrate 12.5 mg 05/11/25 23:30 05/14/25 22:08 Metoprolol Tartrate 12.5 Mg Tablet PO 12.5 mg Q12HR BRENNAN Administration Multivitamins Therapeutic 1 tablet 05/12/25 09:00 05/14/25 09:16 Multivitamins Therapeutic Tab (*Bkc) PO 1 tablet DAILY BRENNAN Administration Ondansetron HCl 4 mg 05/11/25 17:57 Ondansetron Inj 4 Mg/2 Ml Vial IV PUSH Q4H PRN Nausea Saccharomyces Boulardii 250 mg 05/13/25 17:00 05/14/25 17:27 Saccharomyces Boulardii 250 Mg Capsule PO 250 mg TID BRENNAN Administration Sodium Chloride 1 gm 05/12/25 09:00 05/14/25 09:37 Sodium Chloride 1 Gm Tablet PO 1 gm DAILY BRENNAN Administration Umeclidinium/Vilanterol 1 puff 05/12/25 08:00 05/15/25 07:45 Umeclidinium/Vilanterol 62.5-25 Mcg Ellipta INHALATION 1 puff DAILYRT BRENNAN Administration Vitamin D 125 mcg 05/12/25 09:00 05/14/25 09:37 Cholecalciferol (Vitamin D3) 125 Mcg (5,000 Units) Tablet PO 125 mcg DAILY BRENNAN Administration Radiology Results: ITS Impressions Head CT 05/11/25 15:34 Impression: 1.No acute intracranial abnormality. Foot X-Ray 05/11/25 15:58 Impression: Osteomyelitis detailed above Ankle Brachial Index 05/13/25 17:09 IMPRESSION: 1. Arterial occlusive disease to the bilateral lower limbs interval worsening, now with moderately decreased bilateral ABIs and moderately decreased right TBI and severely decreased left TBI. Labs Labs: Laboratory Results - last 24 hr 05/14/25 05/15/25 17:44 05:23 Plt Count 137 L MPV 9.4 Vancomycin Trough 21.7 H Quality VTE Prophylaxis VTE prophylaxis: pharmacologic ordered
[2025-05-15 09:34] LABS: Alanine Aminotransferase 31 U/L (6-50); Albumin Level 2.9 g/dL (3.5-5.1); Alkaline Phosphatase 168 U/L (38-126); Anion Gap 2 mmol/L (4-12); Aspartate Amino Transferase 68 U/L (17-59); Bilirubin,Total 0.6 mg/dL (0.2-1.3); Blood Urea Nitrogen 11 mg/dL (9-20); Calcium 9.2 mg/dL (8.4-10.2); Carbon Dioxide 33 mmol/L (22-30); Chloride 101 mmol/L (98-107); Estimated CRCL calculation 87 ml/min; Estimated Glomerular Filt Rate > 60; Glucose 114 mg/dL (65-110); Potassium 3.8 mmol/L (3.4-5.0); Sodium 136 mmol/L (137-145); Total Protein 5.8 g/dL (6.3-8.2)
[2025-05-15 09:35] LABS: Hematocrit 30.1 % (42.0-52.0); Hemoglobin 9.7 g/dL (14.0-18.0); Mean Corpuscular HGB Conc 32.2 g/dl (32-36); Mean Corpuscular Hemoglobin 33.2 pg (26-34); Mean Corpuscular Volume 103.1 fl (80-100); Red Blood Count 2.92 M/mm3 (4.6-6.20); White Blood Count 5.5 K/mm3 (4.5-10.0)
[2025-05-15] MEDS: ENOXAPARIN 40 MG/0.4 ML SYRINGE SUB-Q (10:02)
[2025-05-15] MEDS: METOPROLOL TARTRATE 12.5 MG TABLET PO ×2 (10:03→21:24)
[2025-05-15] MEDS: CYANOCOBALAMIN 500 MCG TABLET PO (10:03)
[2025-05-15] MEDS: MULTIVITAMINS THERAPEUTIC TAB (*BKC) 1 TABLET PO (10:03)
[2025-05-15] MEDS: CHOLECALCIFEROL (VITAMIN D3) 125 MCG (5,000 UNITS) TABLET PO (10:04)
[2025-05-15] MEDS: FOLIC ACID 1 MG TABLET PO (10:04)
[2025-05-15] MEDS: DULoxetine HCL 60 MG CAPSULE.DR PO (10:04)
[2025-05-15] MEDS: SODIUM CHLORIDE 1 GM TABLET PO (10:04)
[2025-05-15] MEDS: GABAPENTIN 300 MG CAPSULE 600 MG PO ×3 (10:04→16:29)
[2025-05-15] MEDS: SACCHAROMYCES BOULARDII 250 MG CAPSULE PO ×3 (10:04→16:29)
[2025-05-15] MEDS: ATORVASTATIN 10 MG TABLET PO (10:04)
[2025-05-15] MEDS: ASPIRIN 81 MG CHEWABLE TABLET PO (10:04)
[2025-05-15] MEDS: CALCIUM CARBONATE (OSCAL) 500 MG TABLET PO (10:04)
[2025-05-15] MEDS: FUROSEMIDE 20 MG TABLET PO (10:05)
[2025-05-15] MEDS: CYANOCOBALAMIN 1,000 MCG TABLET 2000 MCG PO ×2 (10:05→21:24)
[2025-05-15] MEDS: DOXYCYCLINE HYCLATE 100 MG TABLET PO ×2 (12:14→21:24)
--- NOTE | 2025-05-15 13:15 | P.PNGS_ITS ---
Progress Note: A&P Assessment and Plan (1) Acute osteomyelitis of toe of left foot: Code(s): M86.172 - Other acute osteomyelitis, left ankle and foot Status: Acute Assessment and Plan: * Bilateral toe ulcers and left heel ulcer. The left great toe ulcer is at the area of findings of osteomyelitis on plain films. * Patient stable for discharge from a surgical standpoint on antibiotics with outpatient f/u with vascular surgery and eventual amputation depending on vascular workup. ID recommending oral antibiotics on discharge. I will have our office send a referral for vascular. * Will also order a postop shoe for transfers/ambulating at home. Continue local wound care, which his plans to continue at home. * If ID is planning for oral antibiotics, then the PICC line could be removed prior to discharge. Plan I have discussed the patient's case and plan of care with Dr. Kaiser. Subjective Subjective Date/Time Seen: 05/15/25 13:15 Patient reports: no new complaints and afebrile Interval history: Patient seen with his . No acute changes overnight. No complaints. Exam Narrative: Dressing on both feet dry and intact. Const: General: comfortable and no acute distress Objective Data Vital Signs Vital Signs: Vital Signs - 24 hr 05/14/25 13:53 05/14/25 21:08 05/14/25 22:03 Temperature 97.5 F L 97.6 F Pulse Rate 87 106 H Respiratory Rate 20 18 Blood Pressure 115/60 147/63 H Pulse Oximetry 97 95 Oxygen Delivery Room Air Fraction of Inspired Oxygen 05/14/25 22:04 05/14/25 22:08 05/15/25 05:35 Temperature 97.2 F L Pulse Rate 105 H 90 95 Respiratory Rate 14 Blood Pressure 129/77 Pulse Oximetry 92 92 Oxygen Delivery Room Air Fraction of Inspired Oxygen 05/15/25 07:47 05/15/25 07:48 05/15/25 08:00 Temperature Pulse Rate 100 Respiratory Rate 16 Blood Pressure Pulse Oximetry 90 90 Oxygen Delivery Room Air Room Air Fraction of Inspired Oxygen 05/15/25 10:03 Temperature Pulse Rate 100 Respiratory Rate Blood Pressure Pulse Oximetry Oxygen Delivery Fraction of Inspired Oxygen Intake/Output Intake/Output: Intake & Output 05/12/25 05/13/25 05/14/25 05/15/25 23:59 23:59 23:59 23:59 Intake Total 1870 2170 1520 240 Output Total 900 9806 2625 800 Balance 970 615 -0804 -441 Meds/Results Medications: Active Medications Generic Name Dose Route Start Last Admin Trade Name Freq PRN Reason Stop Dose Admin Acetaminophen 650 mg 05/11/25 17:57 Acetaminophen 325 Mg Tablet PO Q4H PRN Mild Pain (1-3) or Fever Albuterol 1 puff 05/11/25 23:16 05/12/25 01:04 Albuterol Sulfate (*Sp) Aerosol 1 Puff INHALATION 1 puff Q4HRT PRN Administration Shortness Of Breath Or Wheezing Allopurinol 300 mg 05/12/25 09:00 05/15/25 10:04 Allopurinol 300 Mg Tablet PO 300 mg DAILY BRENNAN Administration Amoxicillin/Clavulanate Potassium 1 tablet 05/15/25 18:00 Amoxicillin/Clavulanate K 875-125 Mg Tab PO Q12HR BRENNAN Aspirin 81 mg 05/12/25 08:00 05/15/25 10:04 Aspirin 81 Mg Chewable Tablet PO 81 mg DAILY@0800 BRENNAN Administration Atorvastatin Calcium 10 mg 05/12/25 09:00 05/15/25 10:04 Atorvastatin 10 Mg Tablet PO 10 mg DAILY BRENNAN Administration Buspirone HCl 10 mg 05/12/25 09:00 05/15/25 10:05 Buspirone Hcl 10 Mg Tablet PO 10 mg Q12HR BRENNAN Administration Calcium Carbonate 500 mg 05/12/25 09:00 05/15/25 10:04 Calcium Carbonate (Oscal) 500 Mg Tablet PO 500 mg QAM BRENNAN Administration Cyanocobalamin 2,000 mcg 05/12/25 21:00 05/14/25 22:10 Cyanocobalamin 1,000 Mcg Tablet PO 2,000 mcg QHS BRENNAN Administration Cyanocobalamin 2,000 mcg 05/12/25 09:00 05/15/25 10:05 Cyanocobalamin 1,000 Mcg Tablet PO 2,000 mcg QAM BRENNAN Administration Cyanocobalamin 500 mcg 05/12/25 09:00 05/15/25 10:03 Cyanocobalamin 500 Mcg Tablet PO 500 mcg QAM BRENNAN Administration Dextrose 12.5 gm 05/11/25 17:57 Dextrose 50% 25 Gm/50 Ml Syringe IV PUSH PRN PRN Hypoglycemia Protocol Doxycycline Hyclate 100 mg 05/15/25 12:00 05/15/25 12:14 Doxycycline Hyclate 100 Mg Tablet PO 100 mg Q12HR BRENNAN Administration Duloxetine HCl 60 mg 05/12/25 09:00 05/15/25 10:04 Duloxetine Hcl 60 Mg Capsule.Dr PO 60 mg DAILY BRENNAN Administration Enoxaparin Sodium 40 mg 05/14/25 09:00 05/15/25 10:02 Enoxaparin 40 Mg/0.4 Ml Syringe SUB-Q 40 mg DAILY BRENNAN Administration Folic Acid 1 mg 05/12/25 09:00 05/15/25 10:04 Folic Acid 1 Mg Tablet PO 1 mg DAILY BRENNAN Administration Furosemide 20 mg 05/12/25 09:00 05/15/25 10:05 Furosemide 20 Mg Tablet PO 20 mg DAILY BRENNAN Administration Gabapentin 600 mg 05/12/25 09:00 05/15/25 12:14 Gabapentin 300 Mg Capsule PO 600 mg TID BRENNAN Administration Glucagon 1 mg 05/11/25 17:57 Glucagon For Inj 1 Mg Vial IM PRN PRN Hypoglycemia Protocol Glucose 15 gm 05/11/25 17:57 Glucose Oral Gel 15 Gm Of Glucse In 37.5 Gm Tube PO PRN PRN Hypoglycemia Protocol Dextrose 1,000 mls @ 100 mls/hr 05/11/25 17:57 Dextrose 5% 1,000 Ml IVPB PRN PRN Hypoglycemia Protocol Levetiracetam 500 mg 05/11/25 23:30 05/15/25 10:05 Levetiracetam 500 Mg Tablet PO 500 mg Q12HR BRENNAN Administration Metoprolol Tartrate 12.5 mg 05/11/25 23:30 05/15/25 10:03 Metoprolol Tartrate 12.5 Mg Tablet PO 12.5 mg Q12HR BRENNAN Administration Multivitamins Therapeutic 1 tablet 05/12/25 09:00 05/15/25 10:03 Multivitamins Therapeutic Tab (*Bkc) PO 1 tablet DAILY BRENNAN Administration Ondansetron HCl 4 mg 05/11/25 17:57 Ondansetron Inj 4 Mg/2 Ml Vial IV PUSH Q4H PRN Nausea Saccharomyces Boulardii 250 mg 05/13/25 17:00 05/15/25 12:14 Saccharomyces Boulardii 250 Mg Capsule PO 250 mg TID BRENNAN Administration Sodium Chloride 1 gm 05/12/25 09:00 05/15/25 10:04 Sodium Chloride 1 Gm Tablet PO 1 gm DAILY BRENNAN Administration Umeclidinium/Vilanterol 1 puff 05/12/25 08:00 05/15/25 07:45 Umeclidinium/Vilanterol 62.5-25 Mcg Ellipta INHALATION 1 puff DAILYRT BRENNAN Administration Vitamin D 125 mcg 05/12/25 09:00 05/15/25 10:04 Cholecalciferol (Vitamin D3) 125 Mcg (5,000 Units) Tablet PO 125 mcg DAILY BRENNAN Administration Radiology Results: ITS Impressions Head CT 05/11/25 15:34 Impression: 1.No acute intracranial abnormality. Foot X-Ray 05/11/25 15:58 Impression: Osteomyelitis detailed above Ankle Brachial Index 05/13/25 17:09 IMPRESSION: 1. Arterial occlusive disease to the bilateral lower limbs interval worsening, now with moderately decreased bilateral ABIs and moderately decreased right TBI and severely decreased left TBI. Labs Labs: Laboratory Results - last 24 hr 05/14/25 05/15/25 05/15/25 17:44 05:23 05:23 WBC 5.5 RBC 2.92 L Hgb 9.7 L Hct 30.1 L MCV 103.1 H MCH 33.2 MCHC 32.2 RDW 16.2 H Plt Count 137 L TNP MPV 9.4 Sodium Potassium Chloride Carbon Dioxide Anion Gap BUN Creatinine Estim Creat Clear Calc Estimated GFR Glucose Calcium Total Bilirubin AST ALT Alkaline Phosphatase Total Protein Albumin Vancomycin Trough 21.7 H 05/15/25 05:23 WBC RBC Hgb Hct MCV MCH MCHC RDW Plt Count MPV 9.9 Sodium 136 L Potassium 3.8 Chloride 101 Carbon Dioxide 33 H Anion Gap 2 L BUN 11 Creatinine 0.74 Estim Creat Clear Calc 87 Estimated GFR > 60 Glucose 114 H Calcium 9.2 Total Bilirubin 0.6 AST 68 H ALT 31 Alkaline Phosphatase 168 H Total Protein 5.8 L Albumin 2.9 L Vancomycin Trough
--- NOTE | 2025-05-15 18:41 | P.PNINF_ITS ---
Progress Note: A&P Assessment and Plan (1) Ulcer of toe of left foot: Qualifiers: Non-pressure ulcer stage: with necrosis of bone Qualified Code(s): L97.524 - Non-pressure chronic ulcer of other part of left foot with necrosis of bone Code(s): L97.529 - Non-pressure chronic ulcer of other part of left foot with unspecified severity Status: Acute (2) Ulcer of great toe: Code(s): L97.509 - Non-pressure chronic ulcer of other part of unspecified foot with unspecified severity Status: Acute (3) Acute osteomyelitis of toe of left foot: Code(s): M86.172 - Other acute osteomyelitis, left ankle and foot Status: Acute (4) Ulcer of toe of right foot: Qualifiers: Non-pressure ulcer stage: unspecified non-pressure ulcer stage Qualified Code(s): L97.519 - Non-pressure chronic ulcer of other part of right foot with unspecified severity Code(s): L97.519 - Non-pressure chronic ulcer of other part of right foot with unspecified severity Status: Acute Plan # Left 1st toe plantar infected ulcer with x-ray evidence osteomyelitis. # Right foot with distal 2nd and 3rd toe dry eschar wounds but minimal surrounding inflammation. # Peripheral vascular disease including peripheral arterial disease suggested by arterial Doppler study. # Reported diagnosis of diabetes in the past. # Recent left his fracture, status post repair. Plan: -- surgery following. Patient originally opting for medical management; however, now reconsidering surgical amputation of left 1st toe. Per surgical service, proceeding with surgery will 1st require outpatient vascular surgery evaluation. For this reason, would not place PICC and would consider discharge on oral antibiotics as bridge treatment until vascular workup and amputation of left 1st toe could be performed. Ideally, would direct an oral antibiotic regimen toward coverage of wound culture organisms -- culture only being reported as significant for gram-positive cocci. Consequently, I have placed patient on Augmentin 875 mg twice daily and doxycycline 100 mg twice daily. Continue oral antibiotics until definitive surgical procedure. -- after amputation, and if bone margins negative for residual osteomyelitis, and surgical site without active infection, should be able to discontinue all antibiotics. -- for now, continue cefepime, metronidazole, and vancomycin and, as per above, adjust antibiotics based on culture. -- discussed with the patient and his who was at bedside. Patient was seen via video telehealth consultation with the assistance of staff. Chart, data, and patient independently reviewed. Patient was located at [facility] while I was located in my [place] office. Received verbal consent from patient. Subjective Date/time seen: 05/15/25 18:41 Interval history: 05/14/2025: Afebrile and vital signs stable. Creatinine 0.66. lower extremity arterial Doppler studies significant for arterial occlusive disease to the bilateral lower limbs with interval worsening and now with moderately decreased bilateral ABIs in moderately decreased right TBI and severely decreased left TBI. photos of bilateral feet wounds reviewed. Patient is now reconsidering left 1st toe amputation but this would require vascular surgery evaluation. 05/15/2025: Doing well. Left 1st toe inflammation has decreased and wound a [place] [place] dry. Left toe wound culture 05/13: Pending Cefepime 2 g IV q.12 hours 05/12-- Metronidazole 500 mg IV Q 8 hours 05/11-- Vancomycin pharmacy to dose 05/13-- Review of Systems Review of Systems: All systems reviewed & are unremarkable except as noted in HPI and below Exam Narrative: He is awake and alert and nontoxic in appearance. Mental status is baseline. is at bedside. Directed exam significant for bilateral lower extremity stasis dermatitis skin changes. Left 1st toe ulceration is relatively dry at this time. Left 1st toe erythema and overall inflammation/ edema has decreased. Left heel with stage I ulceration but no significant purulence or surrounding inflammation. Right tips of 2nd and 3rd and toe with dry tip wounds/eschars. Objective Data Vital Signs Vital Signs: Vital Signs - 24 hr 05/14/25 21:08 05/14/25 22:03 05/14/25 22:04 Temperature 97.6 F Pulse Rate 106 H 105 H Respiratory Rate 18 Blood Pressure 147/63 H Pulse Oximetry 95 92 Oxygen Delivery Room Air Room Air Fraction of Inspired Oxygen 05/14/25 22:08 05/15/25 05:35 05/15/25 07:47 Temperature 97.2 F L Pulse Rate 90 95 100 Respiratory Rate 14 16 Blood Pressure 129/77 Pulse Oximetry 92 Oxygen Delivery Fraction of Inspired Oxygen 05/15/25 07:48 05/15/25 08:00 05/15/25 10:03 Temperature Pulse Rate 100 Respiratory Rate Blood Pressure Pulse Oximetry 90 90 Oxygen Delivery Room Air Room Air Fraction of Inspired Oxygen 05/15/25 14:00 Temperature 96.9 F L Pulse Rate 90 Respiratory Rate 16 Blood Pressure 122/50 L Pulse Oximetry 95 Oxygen Delivery Fraction of Inspired Oxygen Intake/Output Intake/Output: Intake & Output 05/12/25 05/13/25 05/14/25 05/15/25 23:59 23:59 23:59 23:59 Intake Total 1870 2170 1520 720 Output Total 900 1400 2625 1200 Balance 970 326 -9750 -125 Meds/Results Medications: Active Medications Generic Name Dose Route Start Last Admin Trade Name Freq PRN Reason Stop Dose Admin Acetaminophen 650 mg 05/11/25 17:57 Acetaminophen 325 Mg Tablet PO Q4H PRN Mild Pain (1-3) or Fever Albuterol 1 puff 05/11/25 23:16 05/12/25 01:04 Albuterol Sulfate (*Sp) Aerosol 1 Puff INHALATION 1 puff Q4HRT PRN Administration Shortness Of Breath Or Wheezing Allopurinol 300 mg 05/12/25 09:00 05/15/25 10:04 Allopurinol 300 Mg Tablet PO 300 mg DAILY BRENNAN Administration Amoxicillin/Clavulanate Potassium 1 tablet 05/15/25 18:00 05/15/25 18:00 Amoxicillin/Clavulanate K 875-125 Mg Tab PO 1 tablet Q12HR BRENNAN Administration Aspirin 81 mg 05/12/25 08:00 05/15/25 10:04 Aspirin 81 Mg Chewable Tablet PO 81 mg DAILY@0800 BRENNAN Administration Atorvastatin Calcium 10 mg 05/12/25 09:00 05/15/25 10:04 Atorvastatin 10 Mg Tablet PO 10 mg DAILY BRENNAN Administration Buspirone HCl 10 mg 05/12/25 09:00 05/15/25 10:05 Buspirone Hcl 10 Mg Tablet PO 10 mg Q12HR BRENNAN Administration Calcium Carbonate 500 mg 05/12/25 09:00 05/15/25 10:04 Calcium Carbonate (Oscal) 500 Mg Tablet PO 500 mg QAM BRENNAN Administration Cyanocobalamin 2,000 mcg 05/12/25 21:00 05/14/25 22:10 Cyanocobalamin 1,000 Mcg Tablet PO 2,000 mcg QHS BRENNAN Administration Cyanocobalamin 2,000 mcg 05/12/25 09:00 05/15/25 10:05 Cyanocobalamin 1,000 Mcg Tablet PO 2,000 mcg QAM BRENNAN Administration Cyanocobalamin 500 mcg 05/12/25 09:00 05/15/25 10:03 Cyanocobalamin 500 Mcg Tablet PO 500 mcg QAM BRENNAN Administration Dextrose 12.5 gm 05/11/25 17:57 Dextrose 50% 25 Gm/50 Ml Syringe IV PUSH PRN PRN Hypoglycemia Protocol Doxycycline Hyclate 100 mg 05/15/25 12:00 05/15/25 12:14 Doxycycline Hyclate 100 Mg Tablet PO 100 mg Q12HR BRENNAN Administration Duloxetine HCl 60 mg 05/12/25 09:00 05/15/25 10:04 Duloxetine Hcl 60 Mg Capsule.Dr PO 60 mg DAILY BRENNAN Administration Enoxaparin Sodium 40 mg 05/14/25 09:00 05/15/25 10:02 Enoxaparin 40 Mg/0.4 Ml Syringe SUB-Q 40 mg DAILY BRENNAN Administration Folic Acid 1 mg 05/12/25 09:00 05/15/25 10:04 Folic Acid 1 Mg Tablet PO 1 mg DAILY BRENNAN Administration Furosemide 20 mg 05/12/25 09:00 05/15/25 10:05 Furosemide 20 Mg Tablet PO 20 mg DAILY BRENNAN Administration Gabapentin 600 mg 05/12/25 09:00 05/15/25 16:29 Gabapentin 300 Mg Capsule PO 600 mg TID BRENNAN Administration Glucagon 1 mg 05/11/25 17:57 Glucagon For Inj 1 Mg Vial IM PRN PRN Hypoglycemia Protocol Glucose 15 gm 05/11/25 17:57 Glucose Oral Gel 15 Gm Of Glucse In 37.5 Gm Tube PO PRN PRN Hypoglycemia Protocol Dextrose 1,000 mls @ 100 mls/hr 05/11/25 17:57 Dextrose 5% 1,000 Ml IVPB PRN PRN Hypoglycemia Protocol Levetiracetam 500 mg 05/11/25 23:30 05/15/25 10:05 Levetiracetam 500 Mg Tablet PO 500 mg Q12HR BRENNAN Administration Metoprolol Tartrate 12.5 mg 05/11/25 23:30 05/15/25 10:03 Metoprolol Tartrate 12.5 Mg Tablet PO 12.5 mg Q12HR BRENNAN Administration Multivitamins Therapeutic 1 tablet 05/12/25 09:00 05/15/25 10:03 Multivitamins Therapeutic Tab (*Bkc) PO 1 tablet DAILY BRENNAN Administration Ondansetron HCl 4 mg 05/11/25 17:57 Ondansetron Inj 4 Mg/2 Ml Vial IV PUSH Q4H PRN Nausea Saccharomyces Boulardii 250 mg 05/13/25 17:00 05/15/25 16:29 Saccharomyces Boulardii 250 Mg Capsule PO 250 mg TID BRENNAN Administration Sodium Chloride 1 gm 05/12/25 09:00 05/15/25 10:04 Sodium Chloride 1 Gm Tablet PO 1 gm DAILY BRENNAN Administration Umeclidinium/Vilanterol 1 puff 05/12/25 08:00 05/15/25 07:45 Umeclidinium/Vilanterol 62.5-25 Mcg Ellipta INHALATION 1 puff DAILYRT BRENNAN Administration Vitamin D 125 mcg 05/12/25 09:00 05/15/25 10:04 Cholecalciferol (Vitamin D3) 125 Mcg (5,000 Units) Tablet PO 125 mcg DAILY BRENNAN Administration Radiology Results: ITS Impressions Head CT 05/11/25 15:34 Impression: 1.No acute intracranial abnormality. Foot X-Ray 05/11/25 15:58 Impression: Osteomyelitis detailed above Ankle Brachial Index 05/13/25 17:09 IMPRESSION: 1. Arterial occlusive disease to the bilateral lower limbs interval worsening, now with moderately decreased bilateral ABIs and moderately decreased right TBI and severely decreased left TBI. Labs Labs: Laboratory Results - last 24 hr 05/15/25 05/15/25 05/15/25 05:23 05:23 05:23 WBC 5.5 RBC 2.92 L Hgb 9.7 L Hct 30.1 L MCV 103.1 H MCH 33.2 MCHC 32.2 RDW 16.2 H Plt Count 137 L TNP MPV 9.4 9.9 Sodium 136 L Potassium 3.8 Chloride 101 Carbon Dioxide 33 H Anion Gap 2 L BUN 11 Creatinine 0.74 Estim Creat Clear Calc 87 Estimated GFR > 60 Glucose 114 H Calcium 9.2 Total Bilirubin 0.6 AST 68 H ALT 31 Alkaline Phosphatase 168 H Total Protein 5.8 L Albumin 2.9 L
[2025-05-16] VITALS (8 sets, daily range): BP systolic 84–130; BP diastolic 55–64; PULSE 91–112; RESP 14–20; TEMP 36.1–37.2; O2SAT 90–100
--- NOTE | 2025-05-16 04:27 | PC.NURSE ---
at 2:17am on 05/16/2025, 3 Med Surg received a call from Evgeny Suh tele communicator doing a well fair check on patient Francis Montes. This pt had used his room phone to call 911 because he was disoriented. He said I did not receive dinner and no one will tell me what is going on. I assured patient he is being taken care of and offered several food items (he accepted) and I reoriented him to his environment. He began to remember prior conversations with his doctor and remembered why he is here.
[2025-05-16 06:25] LABS: Hematocrit 27.8 % (42.0-52.0); Hemoglobin 9.2 g/dL (14.0-18.0); Mean Corpuscular HGB Conc 33.1 g/dl (32-36); Mean Corpuscular Hemoglobin 33.5 pg (26-34); Mean Corpuscular Volume 101.1 fl (80-100); Platelet Count Result 124 k/mm3 (150-375); Red Blood Count 2.75 M/mm3 (4.6-6.20); White Blood Count 5.2 K/mm3 (4.5-10.0)
[2025-05-16 06:45] LABS: Alanine Aminotransferase 27 U/L (6-50); Albumin Level 2.7 g/dL (3.5-5.1); Alkaline Phosphatase 139 U/L (38-126); Anion Gap 2 mmol/L (4-12); Aspartate Amino Transferase 47 U/L (17-59); Bilirubin,Total 0.5 mg/dL (0.2-1.3); Blood Urea Nitrogen 11 mg/dL (9-20); Calcium 9.1 mg/dL (8.4-10.2); Carbon Dioxide 32 mmol/L (22-30); Chloride 97 mmol/L (98-107); Estimated CRCL calculation 87 ml/min; Estimated Glomerular Filt Rate > 60; Glucose 123 mg/dL (65-110); Potassium 3.7 mmol/L (3.4-5.0); Sodium 131 mmol/L (137-145); Total Protein 5.6 g/dL (6.3-8.2)
[2025-05-16] MEDS: UMECLIDINIUM/VILANTEROL 62.5-25 MCG ELLIPTA 1 PUFF INHALATION (07:27)
--- NOTE | 2025-05-16 07:49 | PM.IMPN ---
Progress Note: A&P Assessment and Plan (1) Ulcer of toe of left foot: Qualifiers: Non-pressure ulcer stage: with necrosis of bone Qualified Code(s): L97.524 - Non-pressure chronic ulcer of other part of left foot with necrosis of bone Code(s): L97.529 - Non-pressure chronic ulcer of other part of left foot with unspecified severity Status: Acute Assessment and Plan: Ulceration to left first toe - Foot XR, L: Osteomyelitis - Foot XR, R: No acute fracture or malalignment. - FLORES: Arterial occlusive disease to the bilateral lower limbs interval worsening, now with moderately decreased bilateral ABIs and moderately decreased right TBI and severely decreased left TBI. - Antibiotics: started on Vancomycin, Cefepime and Flagyl on 05/11, transitioned to Augmentin and doxycycline on 05/15 per ID - Wound RN consulted - General Surgery consulted patient wants to proceed with IV antibiotics and conservative management, will get ID consultation. See ID recs below. wound care consultation as well for this wound as well as right foot wounds postop shoe for transfers/ambulating at home. Continue local wound care, which his plans to continue at home. - ID consulted Patient originally opting for medical management; however, now reconsidering surgical amputation of left 1st toe. Per surgical service, proceeding with surgery will 1st require outpatient vascular surgery evaluation. For this reason, would not place PICC and would consider discharge on oral antibiotics as bridge treatment until vascular workup and amputation of left 1st toe could be performed. Transitioned to Augmentin and doxycycline on 05/15 per ID. Discussed patient with ID and he is to remain on Augmentin and doxycycline until able to have surgical intervention. Per ID pharmacy if in the future patient for some reason decides against surgery or if there is a length delay to surgery he will require a PICC line and IV antibiotics. Patient and made aware and state understanding. PT/OT evaluated and recommending SNF placement, after a lengthy discussion with patient and his they are agreeable to placement. Care coordination following. (2) Ulcer of toe of right foot: Qualifiers: Non-pressure ulcer stage: unspecified non-pressure ulcer stage Qualified Code(s): L97.519 - Non-pressure chronic ulcer of other part of right foot with unspecified severity Code(s): L97.519 - Non-pressure chronic ulcer of other part of right foot with unspecified severity Status: Acute Assessment and Plan: - see above - ulceration noted to right 2nd and 3rd toe (3) Alcohol dependence: Qualifiers: Substance use status: unspecified alcohol-induced disorder Qualified Code(s): F10.29 - Alcohol dependence with unspecified alcohol-induced disorder Code(s): F10.20 - Alcohol dependence, uncomplicated Status: Chronic Assessment and Plan: - last ETOH intake 1 month ago prior to admission at [facility] for a hip fracture - No noted tremors on exam (4) Cirrhosis of liver: Qualifiers: Ascites presence: without ascites Hepatic cirrhosis type: alcoholic cirrhosis Qualified Code(s): K70.30 - Alcoholic cirrhosis of liver without ascites Code(s): K74.60 - Unspecified cirrhosis of liver Status: Chronic Assessment and Plan: - secondary to ETOH, no longer drinking - LFTs WNL - continue folic acid, multivitamin, and B12 (5) COPD (chronic obstructive pulmonary disease): Qualifiers: COPD type: unspecified COPD Qualified Code(s): J44.9 - Chronic obstructive pulmonary disease, unspecified Code(s): J44.9 - Chronic obstructive pulmonary disease, unspecified Status: Chronic Assessment and Plan: - continue albuterol inhaler p.r.n. (6) Hypertension: Qualifiers: Hypertension type: primary hypertension Qualified Code(s): I10 - Essential (primary) hypertension Code(s): I10 - Essential (primary) hypertension Status: Chronic Assessment and Plan: Chronic, continue home medications - lasix 20 mg daily - metoprolol 12.5 BID - blood pressures remains stable (7) Smoker: Code(s): F17.200 - Nicotine dependence, unspecified, uncomplicated Status: Acute Assessment and Plan: pt had been smoking since he was 11 years old and about [address] pad, cut [address] down now offered nicotine patch- refused for now smoking cessation counselling completed Time Spent With Patient Time with patient: 25 - 35 minutes Subjective Date/time seen: 05/16/25 07:49 Interval history: 69 year old male with PMH of HLD, dysphagia, chronic respiratory failure on home O2, alcoholic cirrhosis, anemia, diabetes, COPD, hepatitis-A, PVD, and thrombocytopenia presents to the hospital with bilateral foot wounds. Patient is pleasant sitting up comfortably in his chair. He has no complaints at this time denying chest pain, shortness a breath, palpitations, nausea/vomiting, and abdominal pain. Patient also denies any pain to the bilateral lower extremities. Discussed patient's antibiotic regimen with IV pharmacy and they recommend to continue oral Augmentin and doxycycline until patient is able to undergo a surgical intervention. Discussed this with patient and his in a state understanding. Patient worked with physical therapy who recommended SNF placement. Patient was originally not wishing to proceed with SNF placement however after further discussion with him and his he is now agreeable. Care coordination following. Review of Systems Review of Systems: All systems reviewed & are unremarkable except as noted in HPI and below Exam Narrative: AF HR 91 RR 17 Spo2 94 BP 130/58 General: male in no acute respiratory distress who is nontoxic appearing, sitting up in chair HEENT: Normocephalic. Atraumatic. Extraocular movement intact. Sclera clear and anicteric. No facial asymmetry. Chest: Lungs are clear to auscultation bilaterally. No wheezes or crackles. CV: Heart was regular rate and rhythm. Abd: Abdomen was soft. Nontender. Nondistended. Positive bowel sounds. Ext: No clubbing, cyanosis, or edema. Ulcer on the plantar aspect of the left great toe without drainage. Ulcer to the plantar aspect of right third toe without drainage. Neuro: Patient is alert and oriented x4. Speech is clear. Objective Data Vital Signs Vital Signs: Vital Signs - 24 hr 05/15/25 08:00 05/15/25 10:03 05/15/25 14:00 Temperature 96.9 F L Pulse Rate 100 90 Respiratory Rate 16 Blood Pressure 122/50 L Pulse Oximetry 90 95 Oxygen Delivery Room Air 05/15/25 21:00 05/15/25 21:24 05/15/25 21:24 Temperature 97.6 F Pulse Rate 93 96 Respiratory Rate 17 Blood Pressure 117/51 L Pulse Oximetry 100 100 Oxygen Delivery Room Air 05/16/25 04:30 05/16/25 07:28 05/16/25 07:31 Temperature 96.9 F L Pulse Rate 91 104 H 104 H Respiratory Rate 17 18 18 Blood Pressure 130/58 L Pulse Oximetry 94 95 Oxygen Delivery Room Air Intake/Output Intake/Output: Intake & Output 05/13/25 05/14/25 05/15/25 05/16/25 23:59 23:59 23:59 23:59 Intake Total 2170 1520 720 220 Output Total 1400 2625 1200 700 Balance 770 -1105 -480 -480 Meds/Results Medications: Active Medications Generic Name Dose Route Start Last Admin Trade Name Freq PRN Reason Stop Dose Admin Acetaminophen 650 mg 05/11/25 17:57 Acetaminophen 325 Mg Tablet PO Q4H PRN Mild Pain (1-3) or Fever Albuterol 1 puff 05/11/25 23:16 05/12/25 01:04 Albuterol Sulfate (*Sp) Aerosol 1 Puff INHALATION 1 puff Q4HRT PRN Administration Shortness Of Breath Or Wheezing Allopurinol 300 mg 05/12/25 09:00 05/15/25 10:04 Allopurinol 300 Mg Tablet PO 300 mg DAILY BRENNAN Administration Amoxicillin/Clavulanate Potassium 1 tablet 05/15/25 18:00 05/15/25 18:00 Amoxicillin/Clavulanate K 875-125 Mg Tab PO 1 tablet Q12HR BRENNAN Administration Aspirin 81 mg 05/12/25 08:00 05/15/25 10:04 Aspirin 81 Mg Chewable Tablet PO 81 mg DAILY@0800 BRENNAN Administration Atorvastatin Calcium 10 mg 05/12/25 09:00 05/15/25 10:04 Atorvastatin 10 Mg Tablet PO 10 mg DAILY BRENNAN Administration Buspirone HCl 10 mg 05/12/25 09:00 05/15/25 21:24 Buspirone Hcl 10 Mg Tablet PO 10 mg Q12HR BRENNAN Administration Calcium Carbonate 500 mg 05/12/25 09:00 05/15/25 10:04 Calcium Carbonate (Oscal) 500 Mg Tablet PO 500 mg QAM BRENNAN Administration Cyanocobalamin 2,000 mcg 05/12/25 21:00 05/15/25 21:24 Cyanocobalamin 1,000 Mcg Tablet PO 2,000 mcg QHS BRENNAN Administration Cyanocobalamin 2,000 mcg 05/12/25 09:00 05/15/25 10:05 Cyanocobalamin 1,000 Mcg Tablet PO 2,000 mcg QAM BRENNAN Administration Cyanocobalamin 500 mcg 05/12/25 09:00 05/15/25 10:03 Cyanocobalamin 500 Mcg Tablet PO 500 mcg QAM BRENNAN Administration Dextrose 12.5 gm 05/11/25 17:57 Dextrose 50% 25 Gm/50 Ml Syringe IV PUSH PRN PRN Hypoglycemia Protocol Doxycycline Hyclate 100 mg 05/15/25 12:00 05/15/25 21:24 Doxycycline Hyclate 100 Mg Tablet PO 100 mg Q12HR BRENNAN Administration Duloxetine HCl 60 mg 05/12/25 09:00 05/15/25 10:04 Duloxetine Hcl 60 Mg Capsule.Dr PO 60 mg DAILY BRENNAN Administration Enoxaparin Sodium 40 mg 05/14/25 09:00 05/15/25 10:02 Enoxaparin 40 Mg/0.4 Ml Syringe SUB-Q 40 mg DAILY BRENNAN Administration Folic Acid 1 mg 05/12/25 09:00 05/15/25 10:04 Folic Acid 1 Mg Tablet PO 1 mg DAILY BRENNAN Administration Furosemide 20 mg 05/12/25 09:00 05/15/25 10:05 Furosemide 20 Mg Tablet PO 20 mg DAILY BRENNAN Administration Gabapentin 600 mg 05/12/25 09:00 05/15/25 16:29 Gabapentin 300 Mg Capsule PO 600 mg TID BRENNAN Administration Glucagon 1 mg 05/11/25 17:57 Glucagon For Inj 1 Mg Vial IM PRN PRN Hypoglycemia Protocol Glucose 15 gm 05/11/25 17:57 Glucose Oral Gel 15 Gm Of Glucse In 37.5 Gm Tube PO PRN PRN Hypoglycemia Protocol Dextrose 1,000 mls @ 100 mls/hr 05/11/25 17:57 Dextrose 5% 1,000 Ml IVPB PRN PRN Hypoglycemia Protocol Levetiracetam 500 mg 05/11/25 23:30 05/15/25 21:24 Levetiracetam 500 Mg Tablet PO 500 mg Q12HR BRENNAN Administration Metoprolol Tartrate 12.5 mg 05/11/25 23:30 05/15/25 21:24 Metoprolol Tartrate 12.5 Mg Tablet PO 12.5 mg Q12HR BRENNAN Administration Multivitamins Therapeutic 1 tablet 05/12/25 09:00 05/15/25 10:03 Multivitamins Therapeutic Tab (*Bkc) PO 1 tablet DAILY BRENNAN Administration Ondansetron HCl 4 mg 05/11/25 17:57 Ondansetron Inj 4 Mg/2 Ml Vial IV PUSH Q4H PRN Nausea Saccharomyces Boulardii 250 mg 05/13/25 17:00 05/15/25 16:29 Saccharomyces Boulardii 250 Mg Capsule PO 250 mg TID BRENNAN Administration Sodium Chloride 1 gm 05/12/25 09:00 05/15/25 10:04 Sodium Chloride 1 Gm Tablet PO 1 gm DAILY BRENNAN Administration Umeclidinium/Vilanterol 1 puff 05/12/25 08:00 05/16/25 07:27 Umeclidinium/Vilanterol 62.5-25 Mcg Ellipta INHALATION 1 puff DAILYRT BRENNAN Administration Vitamin D 125 mcg 05/12/25 09:00 05/15/25 10:04 Cholecalciferol (Vitamin D3) 125 Mcg (5,000 Units) Tablet PO 125 mcg DAILY BRENNAN Administration Radiology Results: ITS Impressions Head CT 05/11/25 15:34 Impression: 1.No acute intracranial abnormality. Foot X-Ray 05/11/25 15:58 Impression: Osteomyelitis detailed above Ankle Brachial Index 05/13/25 17:09 IMPRESSION: 1. Arterial occlusive disease to the bilateral lower limbs interval worsening, now with moderately decreased bilateral ABIs and moderately decreased right TBI and severely decreased left TBI. Labs Labs: Laboratory Results - last 24 hr 05/15/25 05/16/25 05:23 05:29 WBC 5.5 5.2 RBC 2.92 L 2.75 L Hgb 9.7 L 9.2 L Hct 30.1 L 27.8 L MCV 103.1 H 101.1 H MCH 33.2 33.5 MCHC 32.2 33.1 RDW 16.2 H 15.9 H Plt Count TNP 124 L MPV 9.9 9.9 Sodium 136 L 131 L Potassium 3.8 3.7 Chloride 101 97 L Carbon Dioxide 33 H 32 H Anion Gap 2 L 2 L BUN 11 11 Creatinine 0.74 0.74 Estim Creat Clear Calc 87 87 Estimated GFR > 60 > 60 Glucose 114 H 123 H Calcium 9.2 9.1 Total Bilirubin 0.6 0.5 AST 68 H 47 ALT 31 27 Alkaline Phosphatase 168 H 139 H Total Protein 5.8 L 5.6 L Albumin 2.9 L 2.7 L Quality VTE Prophylaxis VTE prophylaxis: pharmacologic ordered
[2025-05-16] MEDS: ENOXAPARIN 40 MG/0.4 ML SYRINGE SUB-Q (09:10)
[2025-05-16] MEDS: SACCHAROMYCES BOULARDII 250 MG CAPSULE PO ×3 (09:11→16:27)
[2025-05-16] MEDS: MULTIVITAMINS THERAPEUTIC TAB (*BKC) 1 TABLET PO (09:11)
[2025-05-16] MEDS: FUROSEMIDE 20 MG TABLET PO (09:12)
[2025-05-16] MEDS: FOLIC ACID 1 MG TABLET PO (09:12)
[2025-05-16] MEDS: CALCIUM CARBONATE (OSCAL) 500 MG TABLET PO (09:12)
[2025-05-16] MEDS: ATORVASTATIN 10 MG TABLET PO (09:12)
[2025-05-16] MEDS: METOPROLOL TARTRATE 12.5 MG TABLET PO (09:12)
[2025-05-16] MEDS: SODIUM CHLORIDE 1 GM TABLET PO (09:12)
[2025-05-16] MEDS: CYANOCOBALAMIN 1,000 MCG TABLET 2000 MCG PO ×2 (09:12→21:07)
[2025-05-16] MEDS: DULoxetine HCL 60 MG CAPSULE.DR PO (09:12)
[2025-05-16] MEDS: DOXYCYCLINE HYCLATE 100 MG TABLET PO ×2 (09:13→21:06)
[2025-05-16] MEDS: CHOLECALCIFEROL (VITAMIN D3) 125 MCG (5,000 UNITS) TABLET PO (09:13)
[2025-05-16] MEDS: CYANOCOBALAMIN 500 MCG TABLET PO (09:13)
[2025-05-16] MEDS: ASPIRIN 81 MG CHEWABLE TABLET PO (09:13)
[2025-05-16] MEDS: GABAPENTIN 300 MG CAPSULE 600 MG PO ×3 (09:13→16:27)
--- NOTE | 2025-05-16 11:56 | P.PNINF_ITS ---
Progress Note: A&P Assessment and Plan (1) Ulcer of toe of left foot: Qualifiers: Non-pressure ulcer stage: with necrosis of bone Qualified Code(s): L97.524 - Non-pressure chronic ulcer of other part of left foot with necrosis of bone Code(s): L97.529 - Non-pressure chronic ulcer of other part of left foot with unspecified severity Status: Acute (2) Ulcer of great toe: Code(s): L97.509 - Non-pressure chronic ulcer of other part of unspecified foot with unspecified severity Status: Acute (3) Acute osteomyelitis of toe of left foot: Code(s): M86.172 - Other acute osteomyelitis, left ankle and foot Status: Acute (4) Ulcer of toe of right foot: Qualifiers: Non-pressure ulcer stage: unspecified non-pressure ulcer stage Qualified Code(s): L97.519 - Non-pressure chronic ulcer of other part of right foot with unspecified severity Code(s): L97.519 - Non-pressure chronic ulcer of other part of right foot with unspecified severity Status: Acute Plan # Left 1st toe plantar infected ulcer with x-ray evidence osteomyelitis. # Right foot with distal 2nd and 3rd toe dry eschar wounds but minimal surrounding inflammation. # Peripheral vascular disease including peripheral arterial disease suggested by arterial Doppler study. # Reported diagnosis of diabetes in the past. # Recent left his fracture, status post repair. Plan: -- surgery following. Patient originally opted for medical management; however, now reconsidering surgical amputation of left 1st toe. Per surgical service, proceeding with surgery will 1st require outpatient vascular surgery evaluation. For this reason, would not place PICC and would consider discharge on oral antibiotics as bridge treatment until vascular workup and amputation of left 1st toe could be performed. Consequently, I have placed patient on Augmentin 875 mg twice daily and doxycycline 100 mg twice daily. Continue oral antibiotics until definitive surgical procedure. Instructed patient to take doxycycline with food. -- after amputation, and if bone margins negative for residual osteomyelitis, and surgical site without active infection, should be able to discontinue all antibiotics. -- discussed with patient and his who is at bedside. Discussed with TOMA Brady. Patient was seen via video telehealth consultation with the assistance of staff. Chart, data, and patient independently reviewed. Patient was located at [facility] while I was located in my [place] office. Received verbal consent from patient. Subjective Date/time seen: 05/16/25 11:56 Interval history: 05/14/2025: Afebrile and vital signs stable. Creatinine 0.66. lower extremity arterial Doppler studies significant for arterial occlusive disease to the bilateral lower limbs with interval worsening and now with moderately decreased bilateral ABIs in moderately decreased right TBI and severely decreased left TBI. photos of bilateral feet wounds reviewed. Patient is now reconsidering left 1st toe amputation but this would require vascular surgery evaluation. 05/15/2025: Doing well. Left 1st toe inflammation has decreased and wound a little league dry. 05/16/2025: Afebrile with normal white blood cell count. No new complaints today. Tolerating Augmentin and doxycycline. Left toe wound culture 05/13: Gram-positive cocci Cefepime 2 g IV q.12 hours 05/12-- 05/15 Metronidazole 500 mg IV Q 8 hours 05/11-- 05/15 Vancomycin pharmacy to dose 05/13-- 05/15 Augmentin 875 mg p.o. q.12 hours 05/15-- Doxycycline 100 mg p.o. q.12 hours 05/15-- Review of Systems Review of Systems: All systems reviewed & are unremarkable except as noted in HPI and below Exam Narrative: He is awake and alert and nontoxic in appearance. Mental status is baseline. W suman is at bedside. Directed exam significant for bilateral lower extremity stasis dermatitis skin changes. Left 1st toe ulceration is relatively dry at this time. Left 1st toe erythema and overall inflammation/ edema has decreased. Left heel with stage I ulceration but no significant purulence or surrounding inflammation. Right tips of 2nd and 3rd and toe with dry tip wounds/eschars. No distal changes today. Objective Data Vital Signs Vital Signs: Vital Signs - 24 hr 05/15/25 14:00 05/15/25 21:00 05/15/25 21:24 Temperature 96.9 F L 97.6 F Pulse Rate 90 93 96 Respiratory Rate 16 17 Blood Pressure 122/50 L 117/51 L Pulse Oximetry 95 100 Oxygen Delivery 05/15/25 21:24 05/16/25 04:30 05/16/25 07:28 Temperature 96.9 F L Pulse Rate 91 104 H Respiratory Rate 17 18 Blood Pressure 130/58 L Pulse Oximetry 100 94 Oxygen Delivery Room Air 05/16/25 07:31 05/16/25 08:00 05/16/25 09:12 Temperature Pulse Rate 104 H 104 H Respiratory Rate 18 Blood Pressure Pulse Oximetry 95 Oxygen Delivery Room Air Room Air Intake/Output Intake/Output: Intake & Output 05/13/25 05/14/25 05/15/25 05/16/25 23:59 23:59 23:59 23:59 Intake Total 2170 1520 720 460 Output Total 1400 2625 1200 700 Balance 770 -1105 -480 -240 Meds/Results Medications: Active Medications Generic Name Dose Route Start Last Admin Trade Name Freq PRN Reason Stop Dose Admin Acetaminophen 650 mg 05/11/25 17:57 Acetaminophen 325 Mg Tablet PO Q4H PRN Mild Pain (1-3) or Fever Albuterol 1 puff 05/11/25 23:16 05/12/25 01:04 Albuterol Sulfate (*Sp) Aerosol 1 Puff INHALATION 1 puff Q4HRT PRN Administration Shortness Of Breath Or Wheezing Allopurinol 300 mg 05/12/25 09:00 05/16/25 09:13 Allopurinol 300 Mg Tablet PO 300 mg DAILY BRENNAN Administration Amoxicillin/Clavulanate Potassium 1 tablet 05/15/25 18:00 05/16/25 09:13 Amoxicillin/Clavulanate K 875-125 Mg Tab PO 1 tablet Q12HR BRENNAN Administration Aspirin 81 mg 05/12/25 08:00 05/16/25 09:13 Aspirin 81 Mg Chewable Tablet PO 81 mg DAILY@0800 BRENNAN Administration Atorvastatin Calcium 10 mg 05/12/25 09:00 05/16/25 09:12 Atorvastatin 10 Mg Tablet PO 10 mg DAILY BRENNAN Administration Buspirone HCl 10 mg 05/12/25 09:00 05/16/25 09:12 Buspirone Hcl 10 Mg Tablet PO 10 mg Q12HR BRENNAN Administration Calcium Carbonate 500 mg 05/12/25 09:00 05/16/25 09:12 Calcium Carbonate (Oscal) 500 Mg Tablet PO 500 mg QAM BRENNAN Administration Cyanocobalamin 2,000 mcg 05/12/25 21:00 05/15/25 21:24 Cyanocobalamin 1,000 Mcg Tablet PO 2,000 mcg QHS BRENNAN Administration Cyanocobalamin 2,000 mcg 05/12/25 09:00 05/16/25 09:12 Cyanocobalamin 1,000 Mcg Tablet PO 2,000 mcg QAM BRENNAN Administration Cyanocobalamin 500 mcg 05/12/25 09:00 05/16/25 09:13 Cyanocobalamin 500 Mcg Tablet PO 500 mcg QAM BRENNAN Administration Dextrose 12.5 gm 05/11/25 17:57 Dextrose 50% 25 Gm/50 Ml Syringe IV PUSH PRN PRN Hypoglycemia Protocol Doxycycline Hyclate 100 mg 05/15/25 12:00 05/16/25 09:13 Doxycycline Hyclate 100 Mg Tablet PO 100 mg Q12HR BRENNAN Administration Duloxetine HCl 60 mg 05/12/25 09:00 05/16/25 09:12 Duloxetine Hcl 60 Mg Capsule.Dr PO 60 mg DAILY BRENNAN Administration Enoxaparin Sodium 40 mg 05/14/25 09:00 05/16/25 09:10 Enoxaparin 40 Mg/0.4 Ml Syringe SUB-Q 40 mg DAILY BRENNAN Administration Folic Acid 1 mg 05/12/25 09:00 05/16/25 09:12 Folic Acid 1 Mg Tablet PO 1 mg DAILY BRENNAN Administration Furosemide 20 mg 05/12/25 09:00 05/16/25 09:12 Furosemide 20 Mg Tablet PO 20 mg DAILY BRENNAN Administration Gabapentin 600 mg 05/12/25 09:00 05/16/25 09:13 Gabapentin 300 Mg Capsule PO 600 mg TID BRENNAN Administration Glucagon 1 mg 05/11/25 17:57 Glucagon For Inj 1 Mg Vial IM PRN PRN Hypoglycemia Protocol Glucose 15 gm 05/11/25 17:57 Glucose Oral Gel 15 Gm Of Glucse In 37.5 Gm Tube PO PRN PRN Hypoglycemia Protocol Dextrose 1,000 mls @ 100 mls/hr 05/11/25 17:57 Dextrose 5% 1,000 Ml IVPB PRN PRN Hypoglycemia Protocol Levetiracetam 500 mg 05/11/25 23:30 05/16/25 09:12 Levetiracetam 500 Mg Tablet PO 500 mg Q12HR BRENNAN Administration Metoprolol Tartrate 12.5 mg 05/11/25 23:30 05/16/25 09:12 Metoprolol Tartrate 12.5 Mg Tablet PO 12.5 mg Q12HR BRENNAN Administration Multivitamins Therapeutic 1 tablet 05/12/25 09:00 05/16/25 09:11 Multivitamins Therapeutic Tab (*Bkc) PO 1 tablet DAILY BRENNAN Administration Ondansetron HCl 4 mg 05/11/25 17:57 Ondansetron Inj 4 Mg/2 Ml Vial IV PUSH Q4H PRN Nausea Saccharomyces Boulardii 250 mg 05/13/25 17:00 05/16/25 09:11 Saccharomyces Boulardii 250 Mg Capsule PO 250 mg TID BRENNAN Administration Sodium Chloride 1 gm 05/12/25 09:00 05/16/25 09:12 Sodium Chloride 1 Gm Tablet PO 1 gm DAILY BRENNAN Administration Umeclidinium/Vilanterol 1 puff 05/12/25 08:00 05/16/25 07:27 Umeclidinium/Vilanterol 62.5-25 Mcg Ellipta INHALATION 1 puff DAILYRT BRENNAN Administration Vitamin D 125 mcg 05/12/25 09:00 05/16/25 09:13 Cholecalciferol (Vitamin D3) 125 Mcg (5,000 Units) Tablet PO 125 mcg DAILY BRENNAN Administration Radiology Results: ITS Impressions Head CT 05/11/25 15:34 Impression: 1.No acute intracranial abnormality. Foot X-Ray 05/11/25 15:58 Impression: Osteomyelitis detailed above Ankle Brachial Index 05/13/25 17:09 IMPRESSION: 1. Arterial occlusive disease to the bilateral lower limbs interval worsening, now with moderately decreased bilateral ABIs and moderately decreased right TBI and severely decreased left TBI. Labs Labs: Laboratory Results - last 24 hr 05/16/25 05:29 WBC 5.2 RBC 2.75 L Hgb 9.2 L Hct 27.8 L MCV 101.1 H MCH 33.5 MCHC 33.1 RDW 15.9 H Plt Count 124 L MPV 9.9 Sodium 131 L Potassium 3.7 Chloride 97 L Carbon Dioxide 32 H Anion Gap 2 L BUN 11 Creatinine 0.74 Estim Creat Clear Calc 87 Estimated GFR > 60 Glucose 123 H Calcium 9.1 Total Bilirubin 0.5 AST 47 ALT 27 Alkaline Phosphatase 139 H Total Protein 5.6 L Albumin 2.7 L
--- NOTE | 2025-05-16 21:56 | PC.NURSE ---
2052: pt hypotensive with MAP under 60; repeat 89/55 (MAP 61), manual 94/60 (MAP 71). initially pt reported being tired. Contacted hospitalist regarding pt's BP. Per hospitalist hold metoprolol and continue to monitor. Pt reported feeling better.
[2025-05-17] VITALS (13 sets, daily range): BP systolic 92–127; BP diastolic 44–72; PULSE 80–116; RESP 16–20; TEMP 36.1–36.6; O2SAT 92–100
[2025-05-17 06:56] LABS: Hematocrit 28.7 % (42.0-52.0); Hemoglobin 9.3 g/dL (14.0-18.0); Mean Corpuscular HGB Conc 32.4 g/dl (32-36); Mean Corpuscular Hemoglobin 33.1 pg (26-34); Mean Corpuscular Volume 102.1 fl (80-100); Platelet Count Result 120 k/mm3 (150-375); Red Blood Count 2.81 M/mm3 (4.6-6.20); White Blood Count 6.0 K/mm3 (4.5-10.0)
[2025-05-17 07:20] LABS: Alanine Aminotransferase 22 U/L (6-50); Albumin Level 2.8 g/dL (3.5-5.1); Alkaline Phosphatase 156 U/L (38-126); Anion Gap 1 mmol/L (4-12); Aspartate Amino Transferase 43 U/L (17-59); Bilirubin,Total 0.7 mg/dL (0.2-1.3); Blood Urea Nitrogen 12 mg/dL (9-20); Calcium 9.6 mg/dL (8.4-10.2); Carbon Dioxide 33 mmol/L (22-30); Chloride 99 mmol/L (98-107); Estimated CRCL calculation 81 ml/min; Estimated Glomerular Filt Rate > 60; Glucose 109 mg/dL (65-110); Potassium 4.2 mmol/L (3.4-5.0); Sodium 133 mmol/L (137-145); Total Protein 5.8 g/dL (6.3-8.2)
--- NOTE | 2025-05-17 08:09 | P.PNIM_ITS ---
Progress Note: A&P Assessment and Plan (1) Ulcer of toe of left foot: Qualifiers: Non-pressure ulcer stage: with necrosis of bone Qualified Code(s): L97.524 - Non-pressure chronic ulcer of other part of left foot with necrosis of bone Code(s): L97.529 - Non-pressure chronic ulcer of other part of left foot with unspecified severity Status: Acute Assessment and Plan: Ulceration to left first toe - Foot XR, L: Osteomyelitis - Foot XR, R: No acute fracture or malalignment. - FLORES: Arterial occlusive disease to the bilateral lower limbs interval worsening, now with moderately decreased bilateral ABIs and moderately decreased right TBI and severely decreased left TBI. - Antibiotics: started on Vancomycin, Cefepime and Flagyl on 05/11, transitioned to Augmentin and doxycycline on 05/15 per ID - Wound RN consulted - General Surgery consulted patient wants to proceed with IV antibiotics and conservative management, will get ID consultation. See ID recs below. wound care consultation as well for this wound as well as right foot wounds postop shoe for transfers/ambulating at home. Continue local wound care, which his plans to continue at home. - ID consulted Patient originally opting for medical management; however, now reconsidering surgical amputation of left 1st toe. Per surgical service, proceeding with surgery will 1st require outpatient vascular surgery evaluation. For this reason, would not place PICC and would consider discharge on oral antibiotics as bridge treatment until vascular workup and amputation of left 1st toe could be performed. Transitioned to Augmentin and doxycycline on 05/15 per ID. Discussed patient with ID and he is to remain on Augmentin and doxycycline until able to have surgical intervention. Per ID if in the future patient for some reason decides against surgery or if there is a length delay to surgery he will require a PICC line and IV antibiotics. Patient and made aware and stated understanding. PT/OT evaluated and recommending SNF placement, Care coordination following. (2) Ulcer of toe of right foot: Qualifiers: Non-pressure ulcer stage: unspecified non-pressure ulcer stage Qualified Code(s): L97.519 - Non-pressure chronic ulcer of other part of right foot with unspecified severity Code(s): L97.519 - Non-pressure chronic ulcer of other part of right foot with unspecified severity Status: Acute Assessment and Plan: - see above - ulceration noted to right 2nd and 3rd toe (3) Hypertension: Qualifiers: Hypertension type: primary hypertension Qualified Code(s): I10 - Essential (primary) hypertension Code(s): I10 - Essential (primary) hypertension Status: Chronic Assessment and Plan: - Lasix 20 mg daily and metoprolol 12.5 BID held today as patient noted to be hypotensive overnight into the 90s systolic - Patient noted dizziness when working with PT that resolved when sitting back down - Orthostatics ordered - Possibly related to dehydration as patient appears dry on exam and states decreased oral intake. Given 500 ml NS @ 75 ml/hr x1. Blood pressures improving. - Tele ordered to rule out arrhythmias, denies any chest pain or palpitations (4) Alcohol dependence: Qualifiers: Substance use status: unspecified alcohol-induced disorder Qualified Code(s): F10.29 - Alcohol dependence with unspecified alcohol-induced disorder Code(s): F10.20 - Alcohol dependence, uncomplicated Status: Chronic Assessment and Plan: - last ETOH intake 1 month ago prior to admission at [facility] for a hip fracture - No noted tremors on exam (5) Cirrhosis of liver: Qualifiers: Ascites presence: without ascites Hepatic cirrhosis type: alcoholic cirrhosis Qualified Code(s): K70.30 - Alcoholic cirrhosis of liver without ascites Code(s): K74.60 - Unspecified cirrhosis of liver Status: Chronic Assessment and Plan: - secondary to ETOH, no longer drinking - LFTs WNL - continue folic acid, multivitamin, and B12 (6) COPD (chronic obstructive pulmonary disease): Qualifiers: COPD type: unspecified COPD Qualified Code(s): J44.9 - Chronic obstructive pulmonary disease, unspecified Code(s): J44.9 - Chronic obstructive pulmonary disease, unspecified Status: Chronic Assessment and Plan: - continue albuterol inhaler p.r.n. (7) Smoker: Code(s): F17.200 - Nicotine dependence, unspecified, uncomplicated Status: Acute Assessment and Plan: pt had been smoking since he was 11 years old and about 3 pad, cut way down now offered nicotine patch- refused for now smoking cessation counselling completed Time Spent With Patient Time with patient: 25 - 35 minutes Subjective Date/time seen: 05/17/25 08:09 Interval history: 69 year old male with PMH of HLD, dysphagia, chronic respiratory failure on home O2, alcoholic cirrhosis, anemia, diabetes, COPD, hepatitis-A, PVD, and thrombocytopenia presents to the hospital with bilateral foot wounds. Patient is pleasant sitting up bed. He was noted to be on 1 L oxygen on arrival to his room. Patient states that he intermittently wears 1-2 L at home. He denies any shortness a breath or cough. He states he was placed on oxygen after working with therapy. During assessment check patient's pulse ox and he was noted to be 95% on room air thus he was taken off the oxygen. Patient notes that while working with physical therapy he was able to walk a few feet however he developed dizziness and returned to bed. He has been noted to have lower blood pressures and states he has not had good oral intake since admission. He denies any vomiting or diarrhea. He has no other complaints denying chest pain and palpitations. Patient is still agreeable to placement this time. Care coordination continues to follow. Review of Systems Review of Systems: All systems reviewed & are unremarkable except as noted in HPI and below Exam Narrative: AF HR 68 RR 18 SpO2 94% RA BP 101/44 General: male in no acute respiratory distress who is nontoxic appearing, sitting up in bed. HEENT: Normocephalic. Atraumatic. Extraocular movement intact. Sclera clear and anicteric. No facial asymmetry. Chest: Lungs are clear to auscultation bilaterally. No wheezes or crackles. CV: Heart was regular rate and rhythm. Abd: Abdomen was soft. Nontender. Nondistended. Positive bowel sounds. Ext: No clubbing, cyanosis, or edema. Dressing clean/dry/intact to BLE. Neuro: Patient is alert and oriented x2 (person, place). Speech is clear. Objective Data Vital Signs Vital Signs: Vital Signs - 24 hr 05/16/25 09:12 05/16/25 10:45 05/16/25 14:00 Temperature 98.1 F Pulse Rate 104 H 112 H Respiratory Rate 14 Blood Pressure 108/64 Pulse Oximetry 100 Oxygen Delivery Room Air 05/16/25 20:34 05/16/25 20:55 05/16/25 20:55 Temperature 98.9 F Pulse Rate 99 109 H 106 H Respiratory Rate 20 Blood Pressure 84/57 L 89/55 L 94/60 L Pulse Oximetry 90 Oxygen Delivery 05/16/25 23:03 05/17/25 00:44 05/17/25 05:24 Temperature 97.8 F Pulse Rate 109 H 106 H 101 H Respiratory Rate 20 Blood Pressure 100/58 L 92/54 L Pulse Oximetry 95 98 Oxygen Delivery Intake/Output Intake/Output: Intake & Output 05/14/25 05/15/25 05/16/25 05/17/25 23:59 23:59 23:59 23:59 Intake Total 9631 696 7948 200 Output Total 2625 1200 1450 200 Balance -1105 -480 230 0 Meds/Results Medications: Active Medications Generic Name Dose Route Start Last Admin Trade Name Freq PRN Reason Stop Dose Admin Acetaminophen 650 mg 05/11/25 17:57 Acetaminophen 325 Mg Tablet PO Q4H PRN Mild Pain (1-3) or Fever Albuterol 1 puff 05/11/25 23:16 05/12/25 01:04 Albuterol Sulfate (*Sp) Aerosol 1 Puff INHALATION 1 puff Q4HRT PRN Administration Shortness Of Breath Or Wheezing Allopurinol 300 mg 05/12/25 09:00 05/16/25 09:13 Allopurinol 300 Mg Tablet PO 300 mg DAILY BRENNAN Administration Amoxicillin/Clavulanate Potassium 1 tablet 05/15/25 18:00 05/16/25 21:07 Amoxicillin/Clavulanate K 875-125 Mg Tab PO 1 tablet Q12HR BRENNAN Administration Aspirin 81 mg 05/12/25 08:00 05/16/25 09:13 Aspirin 81 Mg Chewable Tablet PO 81 mg DAILY@0800 BRENNAN Administration Atorvastatin Calcium 10 mg 05/12/25 09:00 05/16/25 09:12 Atorvastatin 10 Mg Tablet PO 10 mg DAILY BRENNAN Administration Buspirone HCl 10 mg 05/12/25 09:00 05/16/25 21:06 Buspirone Hcl 10 Mg Tablet PO 10 mg Q12HR BRENNAN Administration Calcium Carbonate 500 mg 05/12/25 09:00 05/16/25 09:12 Calcium Carbonate (Oscal) 500 Mg Tablet PO 500 mg QAM BRENNAN Administration Cyanocobalamin 2,000 mcg 05/12/25 21:00 05/16/25 21:07 Cyanocobalamin 1,000 Mcg Tablet PO 2,000 mcg QHS BRENNAN Administration Cyanocobalamin 2,000 mcg 05/12/25 09:00 05/16/25 09:12 Cyanocobalamin 1,000 Mcg Tablet PO 2,000 mcg QAM BRENNAN Administration Cyanocobalamin 500 mcg 05/12/25 09:00 05/16/25 09:13 Cyanocobalamin 500 Mcg Tablet PO 500 mcg QAM BRENNAN Administration Dextrose 12.5 gm 05/11/25 17:57 Dextrose 50% 25 Gm/50 Ml Syringe IV PUSH PRN PRN Hypoglycemia Protocol Doxycycline Hyclate 100 mg 05/15/25 12:00 05/16/25 21:06 Doxycycline Hyclate 100 Mg Tablet PO 100 mg Q12HR BRENNAN Administration Duloxetine HCl 60 mg 05/12/25 09:00 05/16/25 09:12 Duloxetine Hcl 60 Mg Capsule.Dr PO 60 mg DAILY BRENNAN Administration Enoxaparin Sodium 40 mg 05/14/25 09:00 05/16/25 09:10 Enoxaparin 40 Mg/0.4 Ml Syringe SUB-Q 40 mg DAILY BRENNAN Administration Folic Acid 1 mg 05/12/25 09:00 05/16/25 09:12 Folic Acid 1 Mg Tablet PO 1 mg DAILY BRENNAN Administration Furosemide 20 mg 05/12/25 09:00 05/16/25 09:12 Furosemide 20 Mg Tablet PO 20 mg DAILY BRENNAN Administration Gabapentin 600 mg 05/12/25 09:00 05/16/25 16:27 Gabapentin 300 Mg Capsule PO 600 mg TID BRENNAN Administration Glucagon 1 mg 05/11/25 17:57 Glucagon For Inj 1 Mg Vial IM PRN PRN Hypoglycemia Protocol Glucose 15 gm 05/11/25 17:57 Glucose Oral Gel 15 Gm Of Glucse In 37.5 Gm Tube PO PRN PRN Hypoglycemia Protocol Dextrose 1,000 mls @ 100 mls/hr 05/11/25 17:57 Dextrose 5% 1,000 Ml IVPB PRN PRN Hypoglycemia Protocol Levetiracetam 500 mg 05/11/25 23:30 05/16/25 21:06 Levetiracetam 500 Mg Tablet PO 500 mg Q12HR BRENNAN Administration Metoprolol Tartrate 12.5 mg 05/11/25 23:30 05/16/25 21:07 Metoprolol Tartrate 12.5 Mg Tablet PO Not Given Q12HR BRENNAN Multivitamins Therapeutic 1 tablet 05/12/25 09:00 05/16/25 09:11 Multivitamins Therapeutic Tab (*Bkc) PO 1 tablet DAILY BRENNAN Administration Ondansetron HCl 4 mg 05/11/25 17:57 Ondansetron Inj 4 Mg/2 Ml Vial IV PUSH Q4H PRN Nausea Saccharomyces Boulardii 250 mg 05/13/25 17:00 05/16/25 16:27 Saccharomyces Boulardii 250 Mg Capsule PO 250 mg TID BRENNAN Administration Sodium Chloride 1 gm 05/12/25 09:00 05/16/25 09:12 Sodium Chloride 1 Gm Tablet PO 1 gm DAILY BRENNAN Administration Umeclidinium/Vilanterol 1 puff 05/12/25 08:00 05/16/25 07:27 Umeclidinium/Vilanterol 62.5-25 Mcg Ellipta INHALATION 1 puff DAILYRT BRENNAN Administration Vitamin D 125 mcg 05/12/25 09:00 05/16/25 09:13 Cholecalciferol (Vitamin D3) 125 Mcg (5,000 Units) Tablet PO 125 mcg DAILY BRENNAN Administration Radiology Results: ITS Impressions Head CT 05/11/25 15:34 Impression: 1.No acute intracranial abnormality. Foot X-Ray 05/11/25 15:58 Impression: Osteomyelitis detailed above Ankle Brachial Index 05/13/25 17:09 IMPRESSION: 1. Arterial occlusive disease to the bilateral lower limbs interval worsening, now with moderately decreased bilateral ABIs and moderately decreased right TBI and severely decreased left TBI. Labs Labs: Laboratory Results - last 24 hr 05/17/25 06:01 WBC 6.0 RBC 2.81 L Hgb 9.3 L Hct 28.7 L MCV 102.1 H MCH 33.1 MCHC 32.4 RDW 15.9 H Plt Count 120 L MPV 10.1 Sodium 133 L Potassium 4.2 Chloride 99 Carbon Dioxide 33 H Anion Gap 1 L BUN 12 Creatinine 0.80 Estim Creat Clear Calc 81 Estimated GFR > 60 Glucose 109 Calcium 9.6 Total Bilirubin 0.7 AST 43 ALT 22 Alkaline Phosphatase 156 H Total Protein 5.8 L Albumin 2.8 L Quality VTE Prophylaxis VTE prophylaxis: pharmacologic ordered
[2025-05-17] MEDS: UMECLIDINIUM/VILANTEROL 62.5-25 MCG ELLIPTA 1 PUFF INHALATION (08:41)
[2025-05-17] MEDS: DULoxetine HCL 60 MG CAPSULE.DR PO (08:52)
[2025-05-17] MEDS: SACCHAROMYCES BOULARDII 250 MG CAPSULE PO ×3 (08:52→17:22)
[2025-05-17] MEDS: GABAPENTIN 300 MG CAPSULE 600 MG PO ×3 (08:53→17:22)
[2025-05-17] MEDS: SODIUM CHLORIDE 1 GM TABLET PO (08:53)
[2025-05-17] MEDS: DOXYCYCLINE HYCLATE 100 MG TABLET PO ×2 (08:53→22:07)
[2025-05-17] MEDS: CYANOCOBALAMIN 500 MCG TABLET PO (08:53)
[2025-05-17] MEDS: CALCIUM CARBONATE (OSCAL) 500 MG TABLET PO (08:53)
[2025-05-17] MEDS: MULTIVITAMINS THERAPEUTIC TAB (*BKC) 1 TABLET PO (08:53)
[2025-05-17] MEDS: CHOLECALCIFEROL (VITAMIN D3) 125 MCG (5,000 UNITS) TABLET PO (08:54)
[2025-05-17] MEDS: FOLIC ACID 1 MG TABLET PO (08:54)
[2025-05-17] MEDS: ATORVASTATIN 10 MG TABLET PO (09:01)
[2025-05-17] MEDS: ENOXAPARIN 40 MG/0.4 ML SYRINGE SUB-Q (09:02)
[2025-05-17] MEDS: ASPIRIN 81 MG CHEWABLE TABLET PO (09:02)
[2025-05-17] MEDS: CYANOCOBALAMIN 1,000 MCG TABLET 2000 MCG PO ×2 (09:05→22:08)
--- NOTE | 2025-05-17 09:05 | PCNWS ---
Weekly nutritional screen. Patient is tolerating current Heart healthy diet with adequate intake, 50-100%. No weight loss reported. No nutritional needs at this time.
--- NOTE | 2025-05-17 10:02 | P.PNINF_ITS ---
Progress Note: A&P Assessment and Plan (1) Ulcer of toe of left foot: Qualifiers: Non-pressure ulcer stage: with necrosis of bone Qualified Code(s): L97.524 - Non-pressure chronic ulcer of other part of left foot with necrosis of bone Code(s): L97.529 - Non-pressure chronic ulcer of other part of left foot with unspecified severity Status: Acute (2) Ulcer of great toe: Code(s): L97.509 - Non-pressure chronic ulcer of other part of unspecified foot with unspecified severity Status: Acute (3) Acute osteomyelitis of toe of left foot: Code(s): M86.172 - Other acute osteomyelitis, left ankle and foot Status: Acute (4) Ulcer of toe of right foot: Qualifiers: Non-pressure ulcer stage: unspecified non-pressure ulcer stage Qualified Code(s): L97.519 - Non-pressure chronic ulcer of other part of right foot with unspecified severity Code(s): L97.519 - Non-pressure chronic ulcer of other part of right foot with unspecified severity Status: Acute Plan # Left 1st toe plantar infected ulcer with x-ray evidence osteomyelitis. # Right foot with distal 2nd and 3rd toe dry eschar wounds but minimal surrounding inflammation. # Peripheral vascular disease including peripheral arterial disease suggested by arterial Doppler study. # Reported diagnosis of diabetes in the past. # Recent left hip fracture, status post repair. Plan: -- surgery following. Patient originally opted for medical management; however, now reconsidering surgical amputation of left 1st toe. Per surgical service, proceeding with surgery will 1st require outpatient vascular surgery evaluation. For this reason, would not place PICC and would consider discharge on oral antibiotics as bridge treatment until vascular workup and amputation of left 1st toe could be performed. Consequently, I have placed patient on Augmentin 875 mg twice daily and doxycycline 100 mg twice daily. Continue oral antibiotics until definitive surgical procedure. Instructed patient to take doxycycline with food. -- after amputation, and if bone margins negative for residual osteomyelitis, and surgical site without active infection, should be able to discontinue all antibiotics. -- possible transfer to SNF for rehab purposes. Patient was seen via video telehealth consultation with the assistance of staff. Chart, data, and patient independently reviewed. Patient was located at [facility] while I was located in my [place] office. Received verbal consent from patient. Subjective Date/time seen: 05/17/25 10:02 Interval history: 05/14/2025: Afebrile and vital signs stable. Creatinine 0.66. lower extremity arterial Doppler studies significant for arterial occlusive disease to the bilateral lower limbs with interval worsening and now with moderately decreased bilateral ABIs in moderately decreased right TBI and severely decreased left TBI. photos of bilateral feet wounds reviewed. Patient is now reconsidering left 1st toe amputation but this would require vascular surgery evaluation. 05/15/2025: Doing well. Left 1st toe inflammation has decreased and wound a little league dry. 05/16/2025: Afebrile with normal white blood cell count. No new complaints today. Tolerating Augmentin and doxycycline. 05/17/2025: Afebrile. Some softening of blood pressure today but sitting up in a chair and feeling better.. Left toe wound culture 05/13: Gram-positive cocci Cefepime 2 g IV q.12 hours 05/12-- 05/15 Metronidazole 500 mg IV Q 8 hours 05/11-- 05/15 Vancomycin pharmacy to dose 05/13-- 05/15 Augmentin 875 mg p.o. q.12 hours 05/15-- Doxycycline 100 mg p.o. q.12 hours 05/15-- Review of Systems Review of Systems: All systems reviewed & are unremarkable except as noted in HPI and below Exam Narrative: He is awake and alert and nontoxic in appearance. Mental status is baseline. Sitting up in a chair. Directed exam significant for bilateral lower extremity stasis dermatitis skin changes. Left 1st toe ulceration is relatively dry at this time. Left 1st toe erythema and overall inflammation/ edema has decreased. Left heel with stage I ulceration but no significant purulence or surrounding inflammation. Right tips of 2nd and 3rd and toe with dry tip wounds/eschars. Objective Data Vital Signs Vital Signs: Vital Signs - 24 hr 05/16/25 10:45 05/16/25 14:00 05/16/25 20:34 Temperature 98.1 F 98.9 F Pulse Rate 112 H 99 Respiratory Rate 14 20 Blood Pressure 108/64 84/57 L Pulse Oximetry 100 90 Oxygen Delivery Room Air Oxygen Flow Rate 05/16/25 20:55 05/16/25 20:55 05/16/25 23:03 Temperature Pulse Rate 109 H 106 H 109 H Respiratory Rate Blood Pressure 89/55 L 94/60 L 100/58 L Pulse Oximetry Oxygen Delivery Oxygen Flow Rate 05/17/25 00:44 05/17/25 05:24 05/17/25 08:42 Temperature 97.8 F Pulse Rate 106 H 101 H 96 Respiratory Rate 20 18 Blood Pressure 92/54 L Pulse Oximetry 95 98 Oxygen Delivery Oxygen Flow Rate 05/17/25 08:44 Temperature Pulse Rate 96 Respiratory Rate 20 Blood Pressure Pulse Oximetry 96 Oxygen Delivery Nasal Cannula Oxygen Flow Rate 1 Intake/Output Intake/Output: Intake & Output 05/14/25 05/15/25 05/16/25 05/17/25 23:59 23:59 23:59 23:59 Intake Total 9295 260 6397 200 Output Total 2625 1200 1450 200 Balance -1105 -480 230 0 Meds/Results Medications: Active Medications Generic Name Dose Route Start Last Admin Trade Name Freq PRN Reason Stop Dose Admin Acetaminophen 650 mg 05/11/25 17:57 Acetaminophen 325 Mg Tablet PO Q4H PRN Mild Pain (1-3) or Fever Albuterol 1 puff 05/11/25 23:16 05/12/25 01:04 Albuterol Sulfate (*Sp) Aerosol 1 Puff INHALATION 1 puff Q4HRT PRN Administration Shortness Of Breath Or Wheezing Allopurinol 300 mg 05/12/25 09:00 05/17/25 08:54 Allopurinol 300 Mg Tablet PO 300 mg DAILY BRENNAN Administration Amoxicillin/Clavulanate Potassium 1 tablet 05/15/25 18:00 05/17/25 08:53 Amoxicillin/Clavulanate K 875-125 Mg Tab PO 1 tablet Q12HR BRENNAN Administration Aspirin 81 mg 05/12/25 08:00 05/17/25 09:02 Aspirin 81 Mg Chewable Tablet PO 81 mg DAILY@0800 BRENNAN Administration Atorvastatin Calcium 10 mg 05/12/25 09:00 05/17/25 09:01 Atorvastatin 10 Mg Tablet PO 10 mg DAILY BRENNAN Administration Buspirone HCl 10 mg 05/12/25 09:00 05/17/25 08:53 Buspirone Hcl 10 Mg Tablet PO 10 mg Q12HR BRENNAN Administration Calcium Carbonate 500 mg 05/12/25 09:00 05/17/25 08:53 Calcium Carbonate (Oscal) 500 Mg Tablet PO 500 mg QAM BRENNAN Administration Cyanocobalamin 2,000 mcg 05/12/25 21:00 05/16/25 21:07 Cyanocobalamin 1,000 Mcg Tablet PO 2,000 mcg QHS BRENNAN Administration Cyanocobalamin 2,000 mcg 05/12/25 09:00 05/17/25 09:05 Cyanocobalamin 1,000 Mcg Tablet PO 2,000 mcg QAM BRENNAN Administration Cyanocobalamin 500 mcg 05/12/25 09:00 05/17/25 08:53 Cyanocobalamin 500 Mcg Tablet PO 500 mcg QAM BRENNAN Administration Dextrose 12.5 gm 05/11/25 17:57 Dextrose 50% 25 Gm/50 Ml Syringe IV PUSH PRN PRN Hypoglycemia Protocol Doxycycline Hyclate 100 mg 05/15/25 12:00 05/17/25 08:53 Doxycycline Hyclate 100 Mg Tablet PO 100 mg Q12HR BRENNAN Administration Duloxetine HCl 60 mg 05/12/25 09:00 05/17/25 08:52 Duloxetine Hcl 60 Mg Capsule.Dr PO 60 mg DAILY BRENNAN Administration Enoxaparin Sodium 40 mg 05/14/25 09:00 05/17/25 09:02 Enoxaparin 40 Mg/0.4 Ml Syringe SUB-Q 40 mg DAILY BRNENAN Administration Folic Acid 1 mg 05/12/25 09:00 05/17/25 08:54 Folic Acid 1 Mg Tablet PO 1 mg DAILY BRENNAN Administration Furosemide 20 mg 05/12/25 09:00 05/16/25 09:12 Furosemide 20 Mg Tablet PO 20 mg DAILY BRENNAN Administration Gabapentin 600 mg 05/12/25 09:00 05/17/25 08:53 Gabapentin 300 Mg Capsule PO 600 mg TID BRENNAN Administration Glucagon 1 mg 05/11/25 17:57 Glucagon For Inj 1 Mg Vial IM PRN PRN Hypoglycemia Protocol Glucose 15 gm 05/11/25 17:57 Glucose Oral Gel 15 Gm Of Glucse In 37.5 Gm Tube PO PRN PRN Hypoglycemia Protocol Dextrose 1,000 mls @ 100 mls/hr 05/11/25 17:57 Dextrose 5% 1,000 Ml IVPB PRN PRN Hypoglycemia Protocol Levetiracetam 500 mg 05/11/25 23:30 05/17/25 08:54 Levetiracetam 500 Mg Tablet PO 500 mg Q12HR BRENNAN Administration Metoprolol Tartrate 12.5 mg 05/11/25 23:30 05/16/25 21:07 Metoprolol Tartrate 12.5 Mg Tablet PO Not Given Q12HR [facility] Multivitamins Therapeutic 1 tablet 05/12/25 09:00 05/17/25 08:53 Multivitamins Therapeutic Tab (*Bkc) PO 1 tablet DAILY BRENNAN Administration Ondansetron HCl 4 mg 05/11/25 17:57 Ondansetron Inj 4 Mg/2 Ml Vial IV PUSH Q4H PRN Nausea Saccharomyces Boulardii 250 mg 05/13/25 17:00 05/17/25 08:52 Saccharomyces Boulardii 250 Mg Capsule PO 250 mg TID BRENNAN Administration Sodium Chloride 1 gm 05/12/25 09:00 05/17/25 08:53 Sodium Chloride 1 Gm Tablet PO 1 gm DAILY BRENNAN Administration Umeclidinium/Vilanterol 1 puff 05/12/25 08:00 05/17/25 08:41 Umeclidinium/Vilanterol 62.5-25 Mcg Ellipta INHALATION 1 puff DAILYRT BRENNAN Administration Vitamin D 125 mcg 05/12/25 09:00 05/17/25 08:54 Cholecalciferol (Vitamin D3) 125 Mcg (5,000 Units) Tablet PO 125 mcg DAILY BRENNAN Administration Radiology Results: ITS Impressions Head CT 05/11/25 15:34 Impression: 1.No acute intracranial abnormality. Foot X-Ray 05/11/25 15:58 Impression: Osteomyelitis detailed above Ankle Brachial Index 05/13/25 17:09 IMPRESSION: 1. Arterial occlusive disease to the bilateral lower limbs interval worsening, now with moderately decreased bilateral ABIs and moderately decreased right TBI and severely decreased left TBI. Labs Labs: Laboratory Results - last 24 hr 05/17/25 06:01 WBC 6.0 RBC 2.81 L Hgb 9.3 L Hct 28.7 L MCV 102.1 H MCH 33.1 MCHC 32.4 RDW 15.9 H Plt Count 120 L MPV 10.1 Sodium 133 L Potassium 4.2 Chloride 99 Carbon Dioxide 33 H Anion Gap 1 L BUN 12 Creatinine 0.80 Estim Creat Clear Calc 81 Estimated GFR > 60 Glucose 109 Calcium 9.6 Total Bilirubin 0.7 AST 43 ALT 22 Alkaline Phosphatase 156 H Total Protein 5.8 L Albumin 2.8 L
[2025-05-17] MEDS: SODIUM CHLORIDE 0.9% IV 500 ML 75 ML IV CONT (10:25)
[2025-05-17] MEDS: ACETAMINOPHEN 325 MG TABLET 650 MG PO (10:30)
[2025-05-17] MEDS: METOPROLOL TARTRATE 12.5 MG TABLET PO (22:07)
[2025-05-18] VITALS (14 sets, daily range): BP systolic 80–138; BP diastolic 45–54; PULSE 85–104; RESP 17–20; TEMP 36.3–36.7; O2SAT 91–100
[2025-05-18 06:16] LABS: Hematocrit 26.4 % (42.0-52.0); Hemoglobin 8.6 g/dL (14.0-18.0); Mean Corpuscular HGB Conc 32.6 g/dl (32-36); Mean Corpuscular Hemoglobin 33.6 pg (26-34); Mean Corpuscular Volume 103.1 fl (80-100); Platelet Count Result 114 k/mm3 (150-375); Red Blood Count 2.56 M/mm3 (4.6-6.20); White Blood Count 5.0 K/mm3 (4.5-10.0)
--- NOTE | 2025-05-18 06:21 | PM.IMPN ---
Progress Note: A&P Assessment and Plan (1) Ulcer of toe of left foot: Qualifiers: Non-pressure ulcer stage: with necrosis of bone Qualified Code(s): L97.524 - Non-pressure chronic ulcer of other part of left foot with necrosis of bone Code(s): L97.529 - Non-pressure chronic ulcer of other part of left foot with unspecified severity Status: Acute Assessment and Plan: Ulceration to left first toe - Foot XR, L: Osteomyelitis - Foot XR, R: No acute fracture or malalignment. - FLORES: Arterial occlusive disease to the bilateral lower limbs interval worsening, now with moderately decreased bilateral ABIs and moderately decreased right TBI and severely decreased left TBI. - Antibiotics: started on Vancomycin, Cefepime and Flagyl on 05/11, transitioned to Augmentin and doxycycline on 05/15 per ID - Wound RN consulted - General Surgery consulted Patient stable for discharge from a surgical standpoint on antibiotics with outpatient f/u with vascular surgery and eventual amputation depending on vascular workup. ID recommending oral antibiotics on discharge. Office send a referral for vascular. Postop shoe for transfers/ambulating at home. Continue local wound care, which his plans to continue at home. - ID consulted Patient originally opting for medical management; however, now reconsidering surgical amputation of left 1st toe. Per surgical service, proceeding with surgery will 1st require outpatient vascular surgery evaluation. For this reason, would not place PICC and would consider discharge on oral antibiotics as bridge treatment until vascular workup and amputation of left 1st toe could be performed. Transitioned to Augmentin and doxycycline on 05/15 per ID. Discussed patient with ID and he is to remain on Augmentin and doxycycline until able to have surgical intervention. Per ID if in the future patient for some reason decides against surgery or if there is a length delay to surgery he will require a PICC line and IV antibiotics. Patient and made aware and stated understanding. PT/OT evaluated and recommending SNF placement. Care coordination following, acceptance at [facility] with authorization pending (2) Ulcer of toe of right foot: Qualifiers: Non-pressure ulcer stage: unspecified non-pressure ulcer stage Qualified Code(s): L97.519 - Non-pressure chronic ulcer of other part of right foot with unspecified severity Code(s): L97.519 - Non-pressure chronic ulcer of other part of right foot with unspecified severity Status: Acute Assessment and Plan: - see above - ulceration noted to right 2nd and 3rd toe (3) Hypertension: Qualifiers: Hypertension type: primary hypertension Qualified Code(s): I10 - Essential (primary) hypertension Code(s): I10 - Essential (primary) hypertension Status: Chronic Assessment and Plan: - Lasix 20 mg daily and metoprolol 12.5 BID held 05/17 as patient noted to be hypotensive overnight into the 90s systolic - Patient noted dizziness when working with PT that resolved when sitting back down - Orthostatics negative however obtained following IV fluid resuscitation - Possibly related to dehydration as patient appears dry on exam and states decreased oral intake. Given 500 ml NS @ 75 ml/hr x1. - Tele ordered to rule out arrhythmias, denies any chest pain or palpitations 05/18: Patient dizziness has resolved. Tele reviewed and unremarkable. Orthostatics negative. Blood pressures improved. (4) Anemia: Code(s): D64.9 - Anemia, unspecified Status: Acute Assessment and Plan: Chronic anemia extending back to 2023 with baseline appearing to be Hgb 8-10. Remains at baseline Iron panel and ferritin ordered and showing anemia of chronic disease b12 and folate WNL Monitor (5) Alcohol dependence: Qualifiers: Substance use status: unspecified alcohol-induced disorder Qualified Code(s): F10.29 - Alcohol dependence with unspecified alcohol-induced disorder Code(s): F10.20 - Alcohol dependence, uncomplicated Status: Chronic Assessment and Plan: - last ETOH intake 1 month ago prior to admission at [facility] for a hip fracture - No noted tremors on exam (6) Cirrhosis of liver: Qualifiers: Ascites presence: without ascites Hepatic cirrhosis type: alcoholic cirrhosis Qualified Code(s): K70.30 - Alcoholic cirrhosis of liver without ascites Code(s): K74.60 - Unspecified cirrhosis of liver Status: Chronic Assessment and Plan: - secondary to ETOH, no longer drinking - LFTs WNL - continue folic acid, multivitamin, and B12 (7) COPD (chronic obstructive pulmonary disease): Qualifiers: COPD type: unspecified COPD Qualified Code(s): J44.9 - Chronic obstructive pulmonary disease, unspecified Code(s): J44.9 - Chronic obstructive pulmonary disease, unspecified Status: Chronic Assessment and Plan: - continue albuterol inhaler p.r.n. (8) Smoker: Code(s): F17.200 - Nicotine dependence, unspecified, uncomplicated Status: Acute Assessment and Plan: pt had been smoking since he was 11 years old and about 3 pad, cut way down now offered nicotine patch- refused for now smoking cessation counselling completed Time Spent With Patient Time with patient: 25 - 35 minutes Subjective Date/time seen: 05/18/25 06:21 Interval history: 69 year old male with PMH of HLD, dysphagia, chronic respiratory failure on home O2, alcoholic cirrhosis, anemia, diabetes, COPD, hepatitis-A, PVD, and thrombocytopenia presents to the hospital with bilateral foot wounds. Patient is pleasant sitting comfortably bed. On arrival to patient's room he was noted to be on 2 L of oxygen. Patient denied any shortness of breath and was unsure why they placed him on oxygen. Removed patient oxygen during assessment and he was noted to be 100% on room air speaking full sentences and normal work of breathing. Patient states that his dizziness has completly resolved. He has no other complaints denying chest pain, shortness of breath, palpitaitons, nausea/vomiting, abdominal pain. Patient remains anemic, denies dark tarry stools and hematuria. Review of Systems Review of Systems: All systems reviewed & are unremarkable except as noted in HPI and below Exam Narrative: AF HR 89 RR 18 SpO2 100 BP 116/45 General: male in no acute respiratory distress who is nontoxic appearing, sitting up in bed. HEENT: Normocephalic. Atraumatic. Extraocular movement intact. Sclera clear and anicteric. No facial asymmetry. Chest: Lungs are clear to auscultation bilaterally. No wheezes or crackles. CV: Heart was regular rate and rhythm. Abd: Abdomen was soft. Nontender. Nondistended. Positive bowel sounds. Ext: No clubbing, cyanosis, or edema. Dressing clean/dry/intact to BLE. Neuro: Patient is alert and oriented x2 (person, place). Speech is clear. Objective Data Vital Signs Vital Signs: Vital Signs - 24 hr 05/17/25 08:42 05/17/25 08:44 05/17/25 08:55 Temperature Pulse Rate 96 96 95 Respiratory Rate 18 20 18 Blood Pressure Pulse Oximetry 96 100 Oxygen Delivery Nasal Cannula Nasal Cannula Oxygen Flow Rate 1 2 05/17/25 12:01 05/17/25 14:00 05/17/25 16:00 Temperature 97.6 F Pulse Rate 100 108 H Respiratory Rate 18 Blood Pressure 100/68 Pulse Oximetry 96 Oxygen Delivery Room Air Oxygen Flow Rate 05/17/25 17:45 05/17/25 18:00 05/17/25 18:05 Temperature Pulse Rate 104 H 112 H Respiratory Rate Blood Pressure 100/44 L 112/55 L Pulse Oximetry 98 100 95 Oxygen Delivery Nasal Cannula Oxygen Flow Rate 2 05/17/25 18:05 05/17/25 19:50 05/17/25 20:27 Temperature 96.9 F L Pulse Rate 108 H 116 H Respiratory Rate 16 Blood Pressure 100/72 127/52 L Pulse Oximetry 95 98 92 Oxygen Delivery Nasal Cannula Oxygen Flow Rate 2 05/17/25 22:07 05/18/25 04:41 Temperature 97.8 F Pulse Rate 80 85 Respiratory Rate 20 Blood Pressure 116/45 L Pulse Oximetry 100 Oxygen Delivery Oxygen Flow Rate Intake/Output Intake/Output: Intake & Output 05/15/25 05/16/25 05/17/25 05/18/25 23:59 23:59 23:59 23:59 Intake Total 720 1680 1480 150 Output Total 1200 1450 200 300 Balance -876 783 1794 -150 Meds/Results Medications: Active Medications Generic Name Dose Route Start Last Admin Trade Name Freq PRN Reason Stop Dose Admin Acetaminophen 650 mg 05/11/25 17:57 05/17/25 10:30 Acetaminophen 325 Mg Tablet PO 650 mg Q4H PRN Administration Mild Pain (1-3) or Fever Albuterol 1 puff 05/11/25 23:16 05/12/25 01:04 Albuterol Sulfate (*Sp) Aerosol 1 Puff INHALATION 1 puff Q4HRT PRN Administration Shortness Of Breath Or Wheezing Allopurinol 300 mg 05/12/25 09:00 05/17/25 08:54 Allopurinol 300 Mg Tablet PO 300 mg DAILY BRENNAN Administration Amoxicillin/Clavulanate Potassium 1 tablet 05/15/25 18:00 05/17/25 22:07 Amoxicillin/Clavulanate K 875-125 Mg Tab PO 1 tablet Q12HR BRENNAN Administration Aspirin 81 mg 05/12/25 08:00 05/17/25 09:02 Aspirin 81 Mg Chewable Tablet PO 81 mg DAILY@0800 BRENNAN Administration Atorvastatin Calcium 10 mg 09/14/25 09:00 05/17/25 09:01 Atorvastatin 10 Mg Tablet PO 10 mg DAILY BRENNAN Administration Buspirone HCl 10 mg 05/12/25 09:00 05/17/25 22:08 Buspirone Hcl 10 Mg Tablet PO 10 mg Q12HR BRENNAN Administration Calcium Carbonate 500 mg 05/12/25 09:00 05/17/25 08:53 Calcium Carbonate (Oscal) 500 Mg Tablet PO 500 mg QAM BRENNAN Administration Cyanocobalamin 2,000 mcg 05/12/25 21:00 05/17/25 22:08 Cyanocobalamin 1,000 Mcg Tablet PO 2,000 mcg QHS BRENNAN Administration Cyanocobalamin 2,000 mcg 05/12/25 09:00 05/17/25 09:05 Cyanocobalamin 1,000 Mcg Tablet PO 2,000 mcg QAM BRENNAN Administration Cyanocobalamin 500 mcg 05/12/25 09:00 05/17/25 08:53 Cyanocobalamin 500 Mcg Tablet PO 500 mcg QAM BRENNAN Administration Dextrose 12.5 gm 05/11/25 17:57 Dextrose 50% 25 Gm/50 Ml Syringe IV PUSH PRN PRN Hypoglycemia Protocol Doxycycline Hyclate 100 mg 05/15/25 12:00 05/17/25 22:07 Doxycycline Hyclate 100 Mg Tablet PO 100 mg Q12HR BRENNAN Administration Duloxetine HCl 60 mg 05/12/25 09:00 05/17/25 08:52 Duloxetine Hcl 60 Mg Capsule.Dr PO 60 mg DAILY BRENNAN Administration Enoxaparin Sodium 40 mg 05/14/25 09:00 05/17/25 09:02 Enoxaparin 40 Mg/0.4 Ml Syringe SUB-Q 40 mg DAILY BRENNAN Administration Folic Acid 1 mg 05/12/25 09:00 05/17/25 08:54 Folic Acid 1 Mg Tablet PO 1 mg DAILY BRENNAN Administration Furosemide 20 mg 05/12/25 09:00 05/17/25 10:15 Furosemide 20 Mg Tablet PO Not Given DAILY BRENNAN Gabapentin 600 mg 05/12/25 09:00 05/17/25 17:22 Gabapentin 300 Mg Capsule PO 600 mg TID BRENNAN Administration Glucagon 1 mg 05/11/25 17:57 Glucagon For Inj 1 Mg Vial IM PRN PRN Hypoglycemia Protocol Glucose 15 gm 05/11/25 17:57 Glucose Oral Gel 15 Gm Of Glucse In 37.5 Gm Tube PO PRN PRN Hypoglycemia Protocol Dextrose 1,000 mls @ 100 mls/hr 05/11/25 17:57 Dextrose 5% 1,000 Ml IVPB PRN PRN Hypoglycemia Protocol Levetiracetam 500 mg 05/11/25 23:30 05/17/25 22:08 Levetiracetam 500 Mg Tablet PO 500 mg Q12HR BRENNAN Administration Metoprolol Tartrate 12.5 mg 05/11/25 23:30 05/17/25 22:07 Metoprolol Tartrate 12.5 Mg Tablet PO 12.5 mg Q12HR BRENNAN Administration Multivitamins Therapeutic 1 tablet 05/12/25 09:00 05/17/25 08:53 Multivitamins Therapeutic Tab (*Bkc) PO 1 tablet DAILY BRENNAN Administration Ondansetron HCl 4 mg 05/11/25 17:57 Ondansetron Inj 4 Mg/2 Ml Vial IV PUSH Q4H PRN Nausea Saccharomyces Boulardii 250 mg 05/13/25 17:00 05/17/25 17:22 Saccharomyces Boulardii 250 Mg Capsule PO 250 mg TID BRENNAN Administration Sodium Chloride 1 gm 05/12/25 09:00 05/17/25 08:53 Sodium Chloride 1 Gm Tablet PO 1 gm DAILY BRENNAN Administration Umeclidinium/Vilanterol 1 puff 05/12/25 08:00 05/17/25 08:41 Umeclidinium/Vilanterol 62.5-25 Mcg Ellipta INHALATION 1 puff DAILYRT BRENNAN Administration Vitamin D 125 mcg 05/12/25 09:00 05/17/25 08:54 Cholecalciferol (Vitamin D3) 125 Mcg (5,000 Units) Tablet PO 125 mcg DAILY BRENNAN Administration Radiology Results: ITS Impressions Head CT 05/11/25 15:34 Impression: 1.No acute intracranial abnormality. Foot X-Ray 05/11/25 15:58 Impression: Osteomyelitis detailed above Ankle Brachial Index 05/13/25 17:09 IMPRESSION: 1. Arterial occlusive disease to the bilateral lower limbs interval worsening, now with moderately decreased bilateral ABIs and moderately decreased right TBI and severely decreased left TBI. Labs Labs: Laboratory Results - last 24 hr 05/17/25 06:01 WBC 6.0 RBC 2.81 L Hgb 9.3 L Hct 28.7 L MCV 102.1 H MCH 33.1 MCHC 32.4 RDW 15.9 H Plt Count 120 L MPV 10.1 Sodium 133 L Potassium 4.2 Chloride 99 Carbon Dioxide 33 H Anion Gap 1 L BUN 12 Creatinine 0.80 Estim Creat Clear Calc 81 Estimated GFR > 60 Glucose 109 Calcium 9.6 Total Bilirubin 0.7 AST 43 ALT 22 Alkaline Phosphatase 156 H Total Protein 5.8 L Albumin 2.8 L Quality VTE Prophylaxis VTE prophylaxis: pharmacologic ordered
[2025-05-18 06:41] LABS: Alanine Aminotransferase 19 U/L (6-50); Albumin Level 2.7 g/dL (3.5-5.1); Alkaline Phosphatase 128 U/L (38-126); Anion Gap 1 mmol/L (4-12); Aspartate Amino Transferase 42 U/L (17-59); Bilirubin,Total 0.7 mg/dL (0.2-1.3); Blood Urea Nitrogen 14 mg/dL (9-20); Calcium 9.1 mg/dL (8.4-10.2); Carbon Dioxide 32 mmol/L (22-30); Chloride 99 mmol/L (98-107); Estimated CRCL calculation 91 ml/min; Estimated Glomerular Filt Rate > 60; Glucose 98 mg/dL (65-110); Potassium 4.3 mmol/L (3.4-5.0); Sodium 132 mmol/L (137-145); Total Protein 5.6 g/dL (6.3-8.2)
[2025-05-18] MEDS: UMECLIDINIUM/VILANTEROL 62.5-25 MCG ELLIPTA 1 PUFF INHALATION (07:30)
[2025-05-18 08:19] LABS: Iron 27 ug/dL (49-181)
[2025-05-18 08:29] LABS: Percent Iron Saturation 15 % (20-50)
[2025-05-18] MEDS: CALCIUM CARBONATE (OSCAL) 500 MG TABLET PO (08:58)
[2025-05-18] MEDS: ASPIRIN 81 MG CHEWABLE TABLET PO (08:58)
[2025-05-18] MEDS: GABAPENTIN 300 MG CAPSULE 600 MG PO ×3 (08:58→17:37)
[2025-05-18] MEDS: CHOLECALCIFEROL (VITAMIN D3) 125 MCG (5,000 UNITS) TABLET PO (08:58)
[2025-05-18] MEDS: DULoxetine HCL 60 MG CAPSULE.DR PO (08:58)
[2025-05-18] MEDS: CYANOCOBALAMIN 500 MCG TABLET PO (08:58)
[2025-05-18] MEDS: SACCHAROMYCES BOULARDII 250 MG CAPSULE PO ×3 (08:58→17:37)
[2025-05-18] MEDS: FOLIC ACID 1 MG TABLET PO (08:58)
[2025-05-18] MEDS: SODIUM CHLORIDE 1 GM TABLET PO (08:58)
[2025-05-18] MEDS: ATORVASTATIN 10 MG TABLET PO (08:58)
[2025-05-18] MEDS: CYANOCOBALAMIN 1,000 MCG TABLET 2000 MCG PO ×2 (08:59→21:54)
[2025-05-18] MEDS: METOPROLOL TARTRATE 12.5 MG TABLET PO ×2 (08:59→21:54)
[2025-05-18 09:00] LABS: Ferritin 272.00 ng/mL (11.1-264)
[2025-05-18] MEDS: ENOXAPARIN 40 MG/0.4 ML SYRINGE SUB-Q (09:00)
[2025-05-18] MEDS: DOXYCYCLINE HYCLATE 100 MG TABLET PO ×2 (09:00→21:54)
[2025-05-18] MEDS: MULTIVITAMINS THERAPEUTIC TAB (*BKC) 1 TABLET PO (09:00)
[2025-05-18] MEDS: FUROSEMIDE 20 MG TABLET PO (09:01)
[2025-05-18 09:14] LABS: Vitamin B12 > 1000.0 pg/mL (239-931)
[2025-05-19] VITALS (12 sets, daily range): BP systolic 94–116; BP diastolic 44–77; PULSE 84–126; RESP 14–18; TEMP 36.2–37; O2SAT 90–99
[2025-05-19 06:31] LABS: Hematocrit 27.2 % (42.0-52.0); Hemoglobin 8.8 g/dL (14.0-18.0); Mean Corpuscular HGB Conc 32.4 g/dl (32-36); Mean Corpuscular Hemoglobin 33.0 pg (26-34); Mean Corpuscular Volume 101.9 fl (80-100); Platelet Count Result 135 k/mm3 (150-375); Red Blood Count 2.67 M/mm3 (4.6-6.20); White Blood Count 4.6 K/mm3 (4.5-10.0)
[2025-05-19 06:57] LABS: Alanine Aminotransferase 24 U/L (6-50); Albumin Level 2.8 g/dL (3.5-5.1); Alkaline Phosphatase 143 U/L (38-126); Anion Gap 2 mmol/L (4-12); Aspartate Amino Transferase 53 U/L (17-59); Bilirubin,Total 0.5 mg/dL (0.2-1.3); Blood Urea Nitrogen 12 mg/dL (9-20); Calcium 9.2 mg/dL (8.4-10.2); Carbon Dioxide 34 mmol/L (22-30); Chloride 97 mmol/L (98-107); Estimated CRCL calculation 84 ml/min; Estimated Glomerular Filt Rate > 60; Glucose 98 mg/dL (65-110); Potassium 4.2 mmol/L (3.4-5.0); Sodium 133 mmol/L (137-145); Total Protein 5.8 g/dL (6.3-8.2)
--- NOTE | 2025-05-19 08:22 | P.PNIM_ITS ---
Progress Note: A&P Assessment and Plan (1) Ulcer of toe of left foot: Qualifiers: Non-pressure ulcer stage: with necrosis of bone Qualified Code(s): L97.524 - Non-pressure chronic ulcer of other part of left foot with necrosis of bone Code(s): L97.529 - Non-pressure chronic ulcer of other part of left foot with unspecified severity Status: Acute Assessment and Plan: Ulceration to left first toe - Foot XR, L: Osteomyelitis - Foot XR, R: No acute fracture or malalignment. - FLORES: Arterial occlusive disease to the bilateral lower limbs interval worsening, now with moderately decreased bilateral ABIs and moderately decreased right TBI and severely decreased left TBI. - Wound culture great left toe: enterococcus faecalis pansensitive - Antibiotics: started on Vancomycin, Cefepime and Flagyl on 05/11, transitioned to Augmentin and doxycycline on 05/15 per ID - Wound RN consulted - General Surgery consulted Patient stable for discharge from a surgical standpoint on antibiotics with outpatient f/u with vascular surgery and eventual amputation depending on vascular workup. ID recommending oral antibiotics on discharge. Office send a referral for vascular. Postop shoe for transfers/ambulating at home. Continue local wound care, which his plans to continue at home. - ID consulted Patient originally opting for medical management; however, now reconsidering surgical amputation of left 1st toe. Per surgical service, proceeding with surgery will 1st require outpatient fl scular surgery evaluation. For this reason, would not place PICC and would consider discharge on oral antibiotics as bridge treatment until vascular workup and amputation of left 1st toe could be performed. Transitioned to Augmentin and doxycycline on 05/15 per ID. Previously discussed patient with ID and he is to remain on Augmentin and doxycycline until able to have surgical intervention. Per ID if in the future patient for some reason decides against surgery or if there is a length delay to surgery he will require a PICC line and IV antibiotics. Patient and made aware and stated understanding. Wound cultures returned growing enterococcus faecalis pansensitive PT/OT evaluated and recommending SNF placement. Care coordination following, acceptance at [facility] with authorization pending (2) Ulcer of toe of right foot: Qualifiers: Non-pressure ulcer stage: unspecified non-pressure ulcer stage Qualified Code(s): L97.519 - Non-pressure chronic ulcer of other part of right foot with unspecified severity Code(s): L97.519 - Non-pressure chronic ulcer of other part of right foot with unspecified severity Status: Acute Assessment and Plan: - see above - ulceration noted to right 2nd and 3rd toe (3) Subclavian steal syndrome: Code(s): G45.8 - Other transient cerebral ischemic attacks and related syndromes Status: Acute Assessment and Plan: Significant difference between bilateral blood pressures with left brachial blood pressure reading 80s systolic compared to right brachial blood pressure of 130s systolic. All pulses intact. Patient at increased risk of atherosclerosis given hypertension and smoking history Carotid doppler < 50% stenosis of bilateral ICA Retrograde flow in the left vertebral artery, consistent with subclavian steal Remains on aspirin 81 mg daily Blood pressure remains controlled on lasix 20 mg daily and metoprolol 12.5 mg BID Increased atorvastatin 10 mg to 40 mg daily Encouraged smoking cessation Patient to follow up with vascular surgery if symptoms worsen (4) Hypertension: Qualifiers: Hypertension type: primary hypertension Qualified Code(s): I10 - Essential (primary) hypertension Code(s): I10 - Essential (primary) hypertension Status: Chronic Assessment and Plan: - Lasix 20 mg daily and metoprolol 12.5 BID held 05/17 as patient noted to be hypotensive overnight into the 90s systolic - Patient noted dizziness when working with PT that resolved when sitting back down - Orthostatics negative however obtained following IV fluid resuscitation - Possibly related to dehydration as patient appears dry on exam and states decreased oral intake. Given 500 ml NS @ 75 ml/hr x1. - Tele ordered to rule out arrhythmias, denies any chest pain or palpitations Patient continues to deny dizziness. Tele reviewed and unremarkable. Blood pressures reviewed and remain stable. Continue lasix 20 mg daily and metoprolol 12.5 mg BID. Monitor. (5) Anemia: Code(s): D64.9 - Anemia, unspecified Status: Acute Assessment and Plan: Chronic anemia extending back to 2023 with baseline appearing to be Hgb 8-10. Remains at baseline Iron panel and ferritin ordered and showing anemia of chronic disease b12 and folate WNL Monitor (6) Alcohol dependence: Qualifiers: Substance use status: unspecified alcohol-induced disorder Qualified Code(s): F10.29 - Alcohol dependence with unspecified alcohol-induced disorder Code(s): F10.20 - Alcohol dependence, uncomplicated Status: Chronic Assessment and Plan: - last ETOH intake 1 month ago prior to admission at [facility] for a hip fracture - No noted tremors on exam (7) Cirrhosis of liver: Qualifiers: Ascites presence: without ascites Hepatic cirrhosis type: alcoholic cirrhosis Qualified Code(s): K70.30 - Alcoholic cirrhosis of liver without ascites Code(s): K74.60 - Unspecified cirrhosis of liver Status: Chronic Assessment and Plan: - secondary to ETOH, no longer drinking - LFTs WNL - continue folic acid, multivitamin, and B12 (8) COPD (chronic obstructive pulmonary disease): Qualifiers: COPD type: unspecified COPD Qualified Code(s): J44.9 - Chronic o bstructive pulmonary disease, unspecified Code(s): J44.9 - Chronic obstructive pulmonary disease, unspecified Status: Chronic Assessment and Plan: - continue albuterol inhaler p.r.n. (9) Smoker: Code(s): F17.200 - Nicotine dependence, unspecified, uncomplicated Status: Acute Assessment and Plan: pt had been smoking since he was 11 years old and about 3 pad, cut down to around 1.5 pad offered nicotine patch- refused for now smoking cessation counselling completed Time Spent With Patient Time with patient: 25 - 35 minutes Subjective Date/time seen: 05/19/25 08:22 Interval history: 69 year old male with PMH of HLD, dysphagia, chronic respiratory failure on home O2, alcoholic cirrhosis, anemia, diabetes, COPD, hepatitis-A, PVD, and thrombocytopenia presents to the hospital with bilateral foot wounds. Patient is pleasant sitting up comfortably in bed with at bedside. He has no complaints at this time denying chest pain, shortness a breath, palpitations, nausea/vomiting, abdominal pain, and dizziness/lightheadedness. Discussed the finding of subclavian steal syndrome on patient's Doppler. All questions were a nswered at that time. Again strongly encouraged patient to stop smoking given the increased risk of atherosclerosis. He stated understanding. Review of Systems Review of Systems: All systems reviewed & are unremarkable except as noted in HPI and below Exam Narrative: AF HR 93 RR 14 SpO2 91 BP 107/44 General: male in no acute respiratory distress who is nontoxic appearing, sitting up in bed. HEENT: Normocephalic. Atraumatic. Extraocular movement intact. Sclera clear and anicteric. No facial asymmetry. Chest: Lungs are clear to auscultation bilaterally. No wheezes or crackles. CV: Heart was regular rate and rhythm. Abd: Abdomen was soft. Nontender. Nondistended. Positive bowel sounds. Ext: No clubbing, cyanosis, or edema. Dressings clean/dry/intact to BLE. Neuro: Patient is alert. Speech is clear. Objective Data Vital Signs Vital Signs: Vital Signs - 24 hr 05/18/25 08:59 05/18/25 09:53 05/18/25 09:55 Temperature Pulse Rate 96 89 89 Respiratory Rate Blood Pressure Pulse Oximetry 100 100 Oxygen Delivery Room Air 05/18/25 12:00 05/18/25 14:00 05/18/25 14:30 Temperature 97.3 F L Pulse Rate 91 94 Respiratory Rate 18 Blood Pressure 80/48 L Pulse Oximetry 95 Oxygen Delivery 05/18/25 14:35 05/18/25 16:00 05/18/25 20:47 Temperature Pulse Rate 98 Respiratory Rate Blood Pressure 138/54 L Pulse Oximetry 91 Oxygen Delivery Room Air 05/18/25 21:21 05/18/25 21:54 05/19/25 05:39 Temperature 98.1 F 98.3 F Pulse Rate 104 H 92 93 Respiratory Rate 17 14 Blood Pressure 100/48 L 107/44 L Pulse Oximetry 95 91 Oxygen Delivery Intake/Output Intake/Output: Intake & Output 05/16/25 05/17/25 05/18/25 05/19/25 23:59 23:59 23:59 23:59 Intake Total 1680 1480 2516 60 Output Total 1450 200 900 Balance 230 1280 1616 60 Meds/Results Medications: Active Medications Generic Name Dose Route Start Last Admin Trade Name Freq PRN Reason Stop Dose Admin Acetaminophen 650 mg 05/11/25 17:57 05/17/25 10:30 Acetaminophen 325 Mg Tablet PO 650 mg Q4H PRN Administration Mild Pain (1-3) or Fever Albuterol 1 puff 05/11/25 23:16 05/12/25 01:04 Albuterol Sulfate (*Sp) Aerosol 1 Puff INHALATION 1 puff Q4HRT PRN Administration Shortness Of Breath Or Wheezing Allopurinol 300 mg 05/12/25 09:00 05/18/25 08:58 Allopurinol 300 Mg Tablet PO 300 mg DAILY BRENNAN Administration Amoxicillin/Clavulanate Potassium 1 tablet 05/15/25 18:00 05/18/25 21:55 Amoxicillin/Clavulanate K 875-125 Mg Tab PO 1 tablet Q12HR BRENNAN Administration Aspirin 81 mg 05/12/25 08:00 05/18/25 08:58 Aspirin 81 Mg Chewable Tablet PO 81 mg DAILY@0800 BRENNAN Administration Atorvastatin Calcium 10 mg 05/12/25 09:00 05/18/25 08:58 Atorvastatin 10 Mg Tablet PO 10 mg DAILY BRENNAN Administration Buspirone HCl 10 mg 05/12/25 09:00 05/18/25 21:55 Buspirone Hcl 10 Mg Tablet PO 10 mg Q12HR BRENNAN Administration Calcium Carbonate 500 mg 05/12/25 09:00 05/18/25 08:58 Calcium Carbonate (Oscal) 500 Mg Tablet PO 500 mg QAM BRENNAN Administration Cyanocobalamin 2,000 mcg 05/12/25 21:00 05/18/25 21:54 Cyanocobalamin 1,000 Mcg Tablet PO 2,000 mcg QHS BRENNAN Administration Cyanocobalamin 2,000 mcg 05/12/25 09:00 05/18/25 08:59 Cyanocobalamin 1,000 Mcg Tablet PO 2,000 mcg QAM BRENNAN Administration Cyanocobalamin 500 mcg 05/12/25 09:00 05/18/25 08:58 Cyanocobalamin 500 Mcg Tablet PO 500 mcg QAM BRENNAN Administration Dextrose 12.5 gm 05/11/25 17:57 Dextrose 50% 25 Gm/50 Ml Syringe IV PUSH PRN PRN Hypoglycemia Protocol Doxycycline Hyclate 100 mg 05/15/25 12:00 05/18/25 21:54 Doxycycline Hyclate 100 Mg Tablet PO 100 mg Q12HR BRENNAN Administration Duloxetine HCl 60 mg 05/12/25 09:00 05/18/25 08:58 Duloxetine Hcl 60 Mg Capsule.Dr PO 60 mg DAILY BRENNAN Administration Enoxaparin Sodium 40 mg 05/14/25 09:00 05/18/25 09:00 Enoxaparin 40 Mg/0.4 Ml Syringe SUB-Q 40 mg DAILY BRENNAN Administration Folic Acid 1 mg 05/12/25 09:00 05/18/25 08:58 Folic Acid 1 Mg Tablet PO 1 mg DAILY BRENNAN Administration Furosemide 20 mg 05/12/25 09:00 05/18/25 09:01 Furosemide 20 Mg Tablet PO 20 mg DAILY BRENNAN Administration Gabapentin 600 mg 05/12/25 09:00 05/18/25 17:37 Gabapentin 300 Mg Capsule PO 600 mg TID BRENNAN Administration Glucagon 1 mg 05/11/25 17:57 Glucagon For Inj 1 Mg Vial IM PRN PRN Hypoglycemia Protocol Glucose 15 gm 05/11/25 17:57 Glucose Oral Gel 15 Gm Of Glucse In 37.5 Gm Tube PO PRN PRN Hypoglycemia Protocol Dextrose 1,000 mls @ 100 mls/hr 05/11/25 17:57 Dextrose 5% 1,000 Ml IVPB PRN PRN Hypoglycemia Protocol Levetiracetam 500 mg 05/11/25 23:30 05/18/25 21:53 Levetiracetam 500 Mg Tablet PO 500 mg Q12HR BRENNAN Administration Metoprolol Tartrate 12.5 mg 05/11/25 23:30 05/18/25 21:54 Metoprolol Tartrate 12.5 Mg Tablet PO 12.5 mg Q12HR BRENNAN Administration Multivitamins Therapeutic 1 tablet 05/12/25 09:00 05/18/25 09:00 Multivitamins Therapeutic Tab (*Bkc) PO 1 tablet DAILY BRENNAN Administration Ondansetron HCl 4 mg 05/11/25 17:57 Ondansetron Inj 4 Mg/2 Ml Vial IV PUSH Q4H PRN Nausea Saccharomyces Boulardii 250 mg 05/13/25 17:00 05/18/25 17:37 Saccharomyces Boulardii 250 Mg Capsule PO 250 mg TID BRENNAN Administration Sodium Chloride 1 gm 05/12/25 09:00 05/18/25 08:58 Sodium Chloride 1 Gm Tablet PO 1 gm DAILY BRENNAN Administration Umeclidinium/Vilanterol 1 puff 05/12/25 08:00 05/18/25 07:30 Umeclidinium/Vilanterol 62.5-25 Mcg Ellipta INHALATION 1 puff DAILYRT BRENNAN Administration Vitamin D 125 mcg 05/12/25 09:00 05/18/25 08:58 Cholecalciferol (Vitamin D3) 125 Mcg (5,000 Units) Tablet PO 125 mcg DAILY BRENNAN Administration Radiology Results: ITS Impressions Head CT 05/11/25 15:34 Impression: 1.No acute intracranial abnormality. Foot X-Ray 05/11/25 15:58 Impression: Osteomyelitis detailed above Ankle Brachial Index 05/13/25 17:09 IMPRESSION: 1. Arterial occlusive disease to the bilateral lower limbs interval worsening, now with moderately decreased bilateral ABIs and moderately decreased right TBI and severely decreased left TBI. Labs Labs: Laboratory Results - last 24 hr 05/18/25 05/19/25 05:26 05:32 WBC 4.6 RBC 2.67 L Hgb 8.8 L Hct 27.2 L MCV 101.9 H MCH 33.0 MCHC 32.4 RDW 15.9 H Plt Count 135 L MPV 10.1 Sodium 133 L Potassium 4.2 Chloride 97 L Carbon Dioxide 34 H Anion Gap 2 L BUN 12 Creatinine 0.77 Estim Creat Clear Calc 84 Estimated GFR > 60 Glucose 98 Calcium 9.2 TIBC 178 L % Saturation 15 L Ferritin 272.00 H Total Bilirubin 0.5 AST 53 ALT 24 Alkaline Phosphatase 143 H Total Protein 5.8 L Albumin 2.8 L Vitamin B12 > 1000.0 H Folate 16.9 Quality VTE Prophylaxis VTE prophylaxis: pharmacologic ordered
[2025-05-19] MEDS: UMECLIDINIUM/VILANTEROL 62.5-25 MCG ELLIPTA 1 PUFF INHALATION (08:28)
[2025-05-19] MEDS: ENOXAPARIN 40 MG/0.4 ML SYRINGE SUB-Q (08:39)
[2025-05-19] MEDS: GABAPENTIN 300 MG CAPSULE 600 MG PO ×3 (08:40→17:40)
[2025-05-19] MEDS: SACCHAROMYCES BOULARDII 250 MG CAPSULE PO ×3 (08:40→17:41)
[2025-05-19] MEDS: SODIUM CHLORIDE 1 GM TABLET PO (08:40)
[2025-05-19] MEDS: DOXYCYCLINE HYCLATE 100 MG TABLET PO ×2 (08:40→20:59)
[2025-05-19] MEDS: METOPROLOL TARTRATE 12.5 MG TABLET PO ×2 (08:40→20:59)
[2025-05-19] MEDS: ATORVASTATIN 10 MG TABLET PO (08:40)
[2025-05-19] MEDS: FUROSEMIDE 20 MG TABLET PO (08:41)
[2025-05-19] MEDS: MULTIVITAMINS THERAPEUTIC TAB (*BKC) 1 TABLET PO (08:41)
[2025-05-19] MEDS: DULoxetine HCL 60 MG CAPSULE.DR PO (08:41)
[2025-05-19] MEDS: CYANOCOBALAMIN 500 MCG TABLET PO (08:41)
[2025-05-19] MEDS: FOLIC ACID 1 MG TABLET PO (08:41)
[2025-05-19] MEDS: CYANOCOBALAMIN 1,000 MCG TABLET 2000 MCG PO ×2 (08:42→20:59)
[2025-05-19] MEDS: CHOLECALCIFEROL (VITAMIN D3) 125 MCG (5,000 UNITS) TABLET PO (08:42)
[2025-05-19] MEDS: CALCIUM CARBONATE (OSCAL) 500 MG TABLET PO (08:42)
[2025-05-19] MEDS: ASPIRIN 81 MG CHEWABLE TABLET PO (08:42)
[2025-05-20] VITALS (8 sets, daily range): BP systolic 118–123; BP diastolic 56–64; PULSE 76–107; RESP 14–18; TEMP 36.2–36.4; O2SAT 90–99
[2025-05-20 06:45] LABS: Hematocrit 30.7 % (42.0-52.0); Hemoglobin 9.9 g/dL (14.0-18.0); Mean Corpuscular HGB Conc 32.2 g/dl (32-36); Mean Corpuscular Hemoglobin 33.3 pg (26-34); Mean Corpuscular Volume 103.4 fl (80-100); Platelet Count Result 164 k/mm3 (150-375); Red Blood Count 2.97 M/mm3 (4.6-6.20); White Blood Count 4.8 K/mm3 (4.5-10.0)
[2025-05-20 07:16] LABS: Alanine Aminotransferase 40 U/L (6-50); Albumin Level 3.1 g/dL (3.5-5.1); Alkaline Phosphatase 169 U/L (38-126); Anion Gap 4 mmol/L (4-12); Aspartate Amino Transferase 89 U/L (17-59); Bilirubin,Total 0.8 mg/dL (0.2-1.3); Blood Urea Nitrogen 12 mg/dL (9-20); Calcium 9.6 mg/dL (8.4-10.2); Carbon Dioxide 31 mmol/L (22-30); Chloride 98 mmol/L (98-107); Estimated CRCL calculation 88 ml/min; Estimated Glomerular Filt Rate > 60; Glucose 108 mg/dL (65-110); Potassium 4.3 mmol/L (3.4-5.0); Sodium 133 mmol/L (137-145); Total Protein 6.5 g/dL (6.3-8.2)
[2025-05-20] MEDS: UMECLIDINIUM/VILANTEROL 62.5-25 MCG ELLIPTA 1 PUFF INHALATION (07:56)
--- NOTE | 2025-05-20 08:03 | PM.IMPN ---
Progress Note: A&P Assessment and Plan (1) Ulcer of toe of left foot: Qualifiers: Non-pressure ulcer stage: with necrosis of bone Qualified Code(s): L97.524 - Non-pressure chronic ulcer of other part of left foot with necrosis of bone Code(s): L97.529 - Non-pressure chronic ulcer of other part of left foot with unspecified severity Status: Acute Assessment and Plan: Ulceration to left first toe - Foot XR, L: Osteomyelitis - Foot XR, R: No acute fracture or malalignment. - FLORES: Arterial occlusive disease to the bilateral lower limbs interval worsening, now with moderately decreased bilateral ABIs and moderately decreased right TBI and severely decreased left TBI. - Wound culture great left toe: enterococcus faecalis pansensitive - Antibiotics: started on Vancomycin, Cefepime and Flagyl on 05/11, transitioned to Augmentin and doxycycline on 05/15 per ID - Wound RN consulted - General Surgery consulted Patient stable for discharge from a surgical standpoint on antibiotics with outpatient f/u with vascular surgery and eventual amputation depending on vascular workup. ID recommending oral antibiotics on discharge. Office send a referral for vascular. Postop shoe for transfers/ambulating at home. Continue local wound care, which his plans to continue at home. - ID consulted Patient originally opting for medical management; however, now reconsidering surgical amputation of left 1st toe. Per surgical service, proceeding with surgery will 1st require outpatient vascular surgery evaluation. For this reason, would not place PICC and would consider discharge on oral antibiotics as bridge treatment until vascular workup and amputation of left 1st toe could be performed. Transitioned to Augmentin and doxycycline on 05/15 per ID. Previously discussed patient with ID and he is to remain on Augmentin and doxycycline until able to have surgical intervention. Per ID if in the future patient for some reason decides against surgery or if there is a length delay to surgery he will require a PICC line and IV antibiotics. Patient and made aware and stated understanding. Wound cultures returned growing enterococcus faecalis pansensitive PT/OT evaluated and recommending SNF placement. Care coordination following, acceptance at [facility] with authorization pending (2) Ulcer of toe of right foot: Qualifiers: Non-pressure ulcer stage: unspecified non-pressure ulcer stage Qualified Code(s): L97.519 - Non-pressure chronic ulcer of other part of right foot with unspecified severity Code(s): L97.519 - Non-pressure chronic ulcer of other part of right foot with unspecified severity Status: Acute Assessment and Plan: - see above - ulceration noted to right 2nd and 3rd toe (3) Subclavian steal syndrome: Code(s): G45.8 - Other transient cerebral ischemic attacks and related syndromes Status: Acute Assessment and Plan: Significant difference between bilateral blood pressures with left brachial blood pressure reading 80s systolic compared to right brachial blood pressure of 130s systolic. All pulses intact. Patient at increased risk of atherosclerosis given hypertension and smoking history Carotid doppler < 50% stenosis of bilateral ICA Retrograde flow in the left vertebral artery, consistent with subclavian steal Remains on aspirin 81 mg daily Blood pressure remains controlled on lasix 20 mg daily and metoprolol 12.5 mg BID Increased atorvastatin 10 mg to 40 mg daily Encouraged smoking cessation Patient to follow up with vascular surgery if symptoms worsen (4) Hypertension: Qualifiers: Hypertension type: primary hypertension Qualified Code(s): I10 - Essential (primary) hypertension Code(s): I10 - Essential (primary) hypertension Status: Chronic Assessment and Plan: - Lasix 20 mg daily and metoprolol 12.5 BID held 05/17 as patient noted to be hypotensive overnight into the 90s systolic - Patient noted dizziness when working with PT that resolved when sitting back down - Orthostatics negative however obtained following IV fluid resuscitation - Possibly related to dehydration as patient appears dry on exam and states decreased oral intake. Given 500 ml NS @ 75 ml/hr x1. - Tele ordered to rule out arrhythmias, denies any chest pain or palpitations Patient continues to deny dizziness. Tele reviewed and unremarkable. Blood pressures reviewed and remain stable. Continue lasix 20 mg daily and metoprolol 12.5 mg BID. Monitor. (5) Anemia: Code(s): D64.9 - Anemia, unspecified Status: Acute Assessment and Plan: Chronic anemia extending back to 2023 with baseline appearing to be Hgb 8-10. Remains at baseline Iron panel and ferritin ordered and showing anemia of chronic disease b12 and folate WNL Monitor (6) Alcohol dependence: Qualifiers: Substance use status: unspecified alcohol-induced disorder Qualified Code(s): F10.29 - Alcohol dependence with unspecified alcohol-induced disorder Code(s): F10.20 - Alcohol dependence, uncomplicated Status: Chronic Assessment and Plan: - last ETOH intake 1 month ago prior to admission at [facility] for a hip fracture - No noted tremors on exam (7) Cirrhosis of liver: Qualifiers: Hepatic cirrhosis type: alcoholic cirrhosis Ascites presence: without ascites Qualified Code(s): K70.30 - Alcoholic cirrhosis of liver without ascites Code(s): K74.60 - Unspecified cirrhosis of liver Status: Chronic Assessment and Plan: - secondary to ETOH, no longer drinking - LFTs WNL - continue folic acid, multivitamin, and B12 (8) COPD (chronic obstructive pulmonary disease): Qualifiers: COPD type: unspecified COPD Qualified Code(s): J44.9 - Chronic obstructive pulmonary disease, unspecified Code(s): J44.9 - Chronic obstructive pulmonary disease, unspecified Status: Chronic Assessment and Plan: - continue albuterol inhaler p.r.n. (9) Smoker: Code(s): F17.200 - Nicotine dependence, unspecified, uncomplicated Status: Acute Assessment and Plan: pt had been smoking since he was 11 years old and about 3 pad, cut down to around 1.5 pad offered nicotine patch- refused for now smoking cessation counselling completed Subjective Date/time seen: 05/20/25 08:03 Interval history: 69 year old male with PMH of HLD, dysphagia, chronic respiratory failure on home O2, alcoholic cirrhosis, anemia, diabetes, COPD, hepatitis-A, PVD, and thrombocytopenia presents to the hospital with bilateral foot wounds. Review of Systems Review of Systems: All systems reviewed & are unremarkable except as noted in HPI and below Exam Narrative: AF HR General: male in no acute respiratory distress who is nontoxic appearing, sitting up in bed. HEENT: Normocephalic. Atraumatic. Extraocular movement intact. Sclera clear and anicteric. No facial asymmetry. Chest: Lungs are clear to auscultation bilaterally. No wheezes or crackles. CV: Heart was regular rate and rhythm. Abd: Abdomen was soft. Nontender. Nondistended. Positive bowel sounds. Ext: No clubbing, cyanosis, or edema. Dressings clean/dry/intact to BLE. Neuro: Patient is alert. Speech is clear. Objective Data Vital Signs Vital Signs: Vital Signs - 24 hr 05/19/25 08:29 05/19/25 08:40 05/19/25 12:00 Temperature Pulse Rate 96 126 H Respiratory Rate Blood Pressure Pulse Oximetry 90 Oxygen Delivery Room Air 05/19/25 12:54 05/19/25 16:00 05/19/25 20:00 Temperature 97.2 F L Pulse Rate 84 100 85 Respiratory Rate 18 Blood Pressure 94/77 L Pulse Oximetry 99 Oxygen Delivery 05/19/25 20:57 05/19/25 20:59 05/19/25 21:03 Temperature 98.6 F Pulse Rate 98 96 89 Respiratory Rate 18 Blood Pressure 116/54 L Pulse Oximetry 92 Oxygen Delivery 05/19/25 21:18 05/20/25 00:00 05/20/25 04:00 Temperature 98.2 F Pulse Rate 96 85 76 Respiratory Rate 18 Blood Pressure 113/51 L Pulse Oximetry 92 Oxygen Delivery 05/20/25 04:37 05/20/25 07:57 Temperature 97.6 F Pulse Rate 89 92 Respiratory Rate 18 14 Blood Pressure 123/64 Pulse Oximetry 90 Oxygen Delivery Intake/Output Intake/Output: Intake & Output 05/17/25 05/18/25 05/19/25 05/20/25 23:59 23:59 23:59 23:59 Intake Total 1480 2516 670 Output Total 200 900 Balance 1280 1616 670 Meds/Results Medications: Active Medications Generic Name Dose Route Start Last Admin Trade Name Freq PRN Reason Stop Dose Admin Acetaminophen 650 mg 05/11/25 17:57 05/17/25 10:30 Acetaminophen 325 Mg Tablet PO 650 mg Q4H PRN Administration Mild Pain (1-3) or Fever Albuterol 1 puff 05/11/25 23:16 05/12/25 01:04 Albuterol Sulfate (*Sp) Aerosol 1 Puff INHALATION 1 puff Q4HRT PRN Administration Shortness Of Breath Or Wheezing Allopurinol 300 mg 05/12/25 09:00 05/19/25 08:41 Allopurinol 300 Mg Tablet PO 300 mg DAILY BRENNAN Administration Amoxicillin/Clavulanate Potassium 1 tablet 05/15/25 18:00 05/19/25 20:59 Amoxicillin/Clavulanate K 875-125 Mg Tab PO 1 tablet Q12HR BRENNAN Administration Aspirin 81 mg 05/12/25 08:00 05/19/25 08:42 Aspirin 81 Mg Chewable Tablet PO 81 mg DAILY@0800 BRENNAN Administration Atorvastatin Calcium 40 mg 05/20/25 09:00 Atorvastatin 40 Mg Tablet PO DAILY BRENNAN Buspirone HCl 10 mg 05/12/25 09:00 05/19/25 21:00 Buspirone Hcl 10 Mg Tablet PO 10 mg Q12HR BRENNAN Administration Calcium Carbonate 500 mg 05/12/25 09:00 05/19/25 08:42 Calcium Carbonate (Oscal) 500 Mg Tablet PO 500 mg QAM BRENNAN Administration Cyanocobalamin 2,000 mcg 05/12/25 21:00 05/19/25 20:59 Cyanocobalamin 1,000 Mcg Tablet PO 2,000 mcg QHS BRENNAN Administration Cyanocobalamin 2,000 mcg 05/12/25 09:00 05/19/25 08:42 Cyanocobalamin 1,000 Mcg Tablet PO 2,000 mcg QAM BRENNAN Administration Cyanocobalamin 500 mcg 05/12/25 09:00 05/19/25 08:41 Cyanocobalamin 500 Mcg Tablet PO 500 mcg QAM BRNENAN Administration Dextrose 12.5 gm 05/11/25 17:57 Dextrose 50% 25 Gm/50 Ml Syringe IV PUSH PRN PRN Hypoglycemia Protocol Doxycycline Hyclate 100 mg 05/15/25 12:00 05/19/25 20:59 Doxycycline Hyclate 100 Mg Tablet PO 100 mg Q12HR BRENNAN Administration Duloxetine HCl 60 mg 05/12/25 09:00 05/19/25 08:41 Duloxetine Hcl 60 Mg Capsule.Dr PO 60 mg DAILY BRENNAN Administration Enoxaparin Sodium 40 mg 05/14/25 09:00 05/19/25 08:39 Enoxaparin 40 Mg/0.4 Ml Syringe SUB-Q 40 mg DAILY BRENNAN Administration Folic Acid 1 mg 05/12/25 09:00 05/19/25 08:41 Folic Acid 1 Mg Tablet PO 1 mg DAILY BRENNAN Administration Furosemide 20 mg 05/12/25 09:00 05/19/25 08:41 Furosemide 20 Mg Tablet PO 20 mg DAILY BRENNAN Administration Gabapentin 600 mg 05/12/25 09:00 05/19/25 17:40 Gabapentin 300 Mg Capsule PO 600 mg TID BRENNAN Administration Glucagon 1 mg 05/11/25 17:57 Glucagon For Inj 1 Mg Vial IM PRN PRN Hypoglycemia Protocol Glucose 15 gm 05/11/25 17:57 Glucose Oral Gel 15 Gm Of Glucse In 37.5 Gm Tube PO PRN PRN Hypoglycemia Protocol Dextrose 1,000 mls @ 100 mls/hr 05/11/25 17:57 Dextrose 5% 1,000 Ml IVPB PRN PRN Hypoglycemia Protocol Levetiracetam 500 mg 05/11/25 23:30 05/19/25 20:59 Levetiracetam 500 Mg Tablet PO 500 mg Q12HR BRENNAN Administration Metoprolol Tartrate 12.5 mg 05/11/25 23:30 05/19/25 20:59 Metoprolol Tartrate 12.5 Mg Tablet PO 12.5 mg Q12HR BRENNAN Administration Multivitamins Therapeutic 1 tablet 05/12/25 09:00 05/19/25 08:41 Multivitamins Therapeutic Tab (*Bkc) PO 1 tablet DAILY BRENNAN Administration Ondansetron HCl 4 mg 05/11/25 17:57 Ondansetron Inj 4 Mg/2 Ml Vial IV PUSH Q4H PRN Nausea Saccharomyces Boulardii 250 mg 05/13/25 17:00 05/19/25 17:41 Saccharomyces Boulardii 250 Mg Capsule PO 250 mg TID BRENNAN Administration Sodium Chloride 1 gm 05/12/25 09:00 05/19/25 08:40 Sodium Chloride 1 Gm Tablet PO 1 gm DAILY BRENNAN Administration Umeclidinium/Vilanterol 1 puff 05/12/25 08:00 05/20/25 07:56 Umeclidinium/Vilanterol 62.5-25 Mcg Ellipta INHALATION 1 puff DAILYRT BRENNAN Administration Vitamin D 125 mcg 05/12/25 09:00 05/19/25 08:42 Cholecalciferol (Vitamin D3) 125 Mcg (5,000 Units) Tablet PO 125 mcg DAILY BRENNAN Administration Radiology Results: ITS Impressions Head CT 05/11/25 15:34 Impression: 1.No acute intracranial abnormality. Foot X-Ray 05/11/25 15:58 Impression: Osteomyelitis detailed above Ankle Brachial Index 05/13/25 17:09 IMPRESSION: 1. Arterial occlusive disease to the bilateral lower limbs interval worsening, now with moderately decreased bilateral ABIs and moderately decreased right TBI and severely decreased left TBI. Carotid Doppler Study 05/19/25 09:57 IMPRESSION: 1. <50% stenosis in the right internal carotid artery. 2. <50% stenosis in the left internal carotid artery. 3. Retrograde flow in left vertebral artery, consistent with subclavian steal. Labs Labs: Laboratory Results - last 24 hr 05/20/25 05:42 WBC 4.8 RBC 2.97 L Hgb 9.9 L Hct 30.7 L MCV 103.4 H MCH 33.3 MCHC 32.2 RDW 16.0 H Plt Count 164 MPV 10.1 Sodium 133 L Potassium 4.3 Chloride 98 Carbon Dioxide 31 H Anion Gap 4 BUN 12 Creatinine 0.73 Estim Creat Clear Calc 88 Estimated GFR > 60 Glucose 108 Calcium 9.6 Total Bilirubin 0.8 AST 89 H ALT 40 Alkaline Phosphatase 169 H Total Protein 6.5 Albumin 3.1 L Quality VTE Prophylaxis VTE prophylaxis: pharmacologic ordered
[2025-05-20] MEDS: DOXYCYCLINE HYCLATE 100 MG TABLET PO (10:14)
[2025-05-20] MEDS: MULTIVITAMINS THERAPEUTIC TAB (*BKC) 1 TABLET PO (10:14)
[2025-05-20] MEDS: CYANOCOBALAMIN 1,000 MCG TABLET 2000 MCG PO (10:14)
[2025-05-20] MEDS: DULoxetine HCL 60 MG CAPSULE.DR PO (10:14)
[2025-05-20] MEDS: SACCHAROMYCES BOULARDII 250 MG CAPSULE PO ×2 (10:15→12:23)
[2025-05-20] MEDS: GABAPENTIN 300 MG CAPSULE 600 MG PO ×2 (10:15→12:23)
[2025-05-20] MEDS: METOPROLOL TARTRATE 12.5 MG TABLET PO (10:16)
[2025-05-20] MEDS: FUROSEMIDE 20 MG TABLET PO (10:16)
[2025-05-20] MEDS: ATORVASTATIN 40 MG TABLET PO (10:16)
[2025-05-20] MEDS: FOLIC ACID 1 MG TABLET PO (10:16)
[2025-05-20] MEDS: CYANOCOBALAMIN 500 MCG TABLET PO (10:16)
[2025-05-20] MEDS: ASPIRIN 81 MG CHEWABLE TABLET PO (10:16)
[2025-05-20] MEDS: CALCIUM CARBONATE (OSCAL) 500 MG TABLET PO (10:16)
[2025-05-20] MEDS: CHOLECALCIFEROL (VITAMIN D3) 125 MCG (5,000 UNITS) TABLET PO (10:16)
[2025-05-20] MEDS: SODIUM CHLORIDE 1 GM TABLET PO (10:16)
[2025-05-20] MEDS: ENOXAPARIN 40 MG/0.4 ML SYRINGE SUB-Q (10:17)
--- NOTE | 2025-05-20 15:31 | P.DS_ITS ---
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 Code(s): L97.529 - Non-pressure chronic ulcer of other part of left foot with unspecified severity Status: Acute (2) Ulcer of toe of right foot: Qualifiers: Non-pressure ulcer stage: unspecified non-pressure ulcer stage Qualified Code(s): L97.519 - Non-pressure chronic ulcer of other part of right foot with unspecified severity Code(s): L97.519 - Non-pressure chronic ulcer of other part of right foot with unspecified severity Status: Acute (3) Subclavian steal syndrome: Code(s): G45.8 - Other transient cerebral ischemic attacks and related syndromes Status: Acute (4) Hypertension: Qualifiers: Hypertension type: primary hypertension Qualified Code(s): I10 - Essential (primary) hypertension Code(s): I10 - Essential (primary) hypertension Status: Chronic (5) Anemia: Code(s): D64.9 - Anemia, unspecified Status: Acute (6) Alcohol dependence: Qualifiers: Substance use status: unspecified alcohol-induced disorder Qualified Code(s): F10.29 - Alcohol dependence with unspecified alcohol-induced disorder Code(s): F10.20 - Alcohol dependence, uncomplicated Status: Chronic (7) Cirrhosis of liver: Qualifiers: Hepatic cirrhosis type: alcoholic cirrhosis Ascites presence: without ascites Qualified Code(s): K70.30 - Alcoholic cirrhosis of liver without ascites Code(s): K74.60 - Unspecified cirrhosis of liver Status: Chronic (8) COPD (chronic obstructive pulmonary disease): Qualifiers: COPD type: unspecified COPD Qualified Code(s): J44.9 - Chronic obstructive pulmonary disease, unspecified Code(s): J44.9 - Chronic obstructive pulmonary disease, unspecified Status: Chronic (9) Smoker: Code(s): F17.200 - Nicotine dependence, unspecified, uncomplicated Status: Acute DS: Summary Hospital Course Reason for hospitalization: ulcer toe of left foot ulcer toe of right foot subclavian steal syndrome htn anemia alcohol dependence cirrhosis copd smoker Hospital Course: 69 year old male with PMH of HLD, dysphagia, chronic respiratory failure on home O2, alcoholic cirrhosis, anemia, diabetes, COPD, hepatitis-A, PVD, and thrombocytopenia presents to the hospital with bilateral foot wounds. The right foot x-ray showed no acute fracture or malalignment however the left foot x-ray showed osteomyelitis. Wound culture great left toe and grew enterococcus faecalis pansensitive. Patient was originally wanting to proceed with conservative management and IV antibiotics leading to an infectious disease consult. Patient was started on IV antibiotics per Infectious Disease. ABIs were obtained and showed arterial occlusive disease to the bilateral lower limbs interval worsening, now with moderately decreased bilateral ABIs and moderately decreased right TBI and severely decreased left TBI. During admission patient changed his mind was agreeable with surgical intervention however given the vascular disease patient will require vascular surgery referral prior to left great toe amputation. Patient was given a postop shoe for ambulation and transfer. He is to continue with the dressing changes daily. Patient was transitioned to an oral antibiotic regimen by Infectious Disease prior to discharge. Prior to discharge discussed patient with surgery and Infectious Disease both of which are agreeable with discharge at this time. Patient is to follow up with Infectious Disease in 2 weeks. Per surgery patient is to receive a phone call from the surgical office or vascular office this week for scheduling. During admission patient was noted to be hypotensive with reported dizziness. Blood pressures were obtained and he was noted to be hypotensive. Patient received IV fluids and blood pressures improved. Orthostatics were obtained and negative however this was following the IV fluids. Patient was placed on telemetry which was unremarkable throughout admission. Patient did not have another reported dizziness episode throughout admission. Patient was then noted to have a significant difference between bilateral blood pressures with left brachial blood pressure reading 80s systolic compared to right brachial blood pressure of 130s systolic. All pulses intact. Patient at increased risk of atherosclerosis given hypertension and smoking history. Carotid doppler showed < 50% stenosis of bilateral ICA and Retrograde flow in the left vertebral artery, consistent with subclavian steal. Discussed findings with patient and his . Patient remains on aspirin 81 mg daily and atorvastatin was increased. Blood pressure remains controlled on lasix 20 mg daily and metoprolol 12.5 mg BID. Again strongly urged smoking cessation. Patient to follow up with vascular surgery if symptoms worsen. During admission patient was working with therapy who is recommending placement. A peer to peer was performed with patient's insurance however they continued to deny placement for the patient. Discussed this with patient and his who are agreeable with being discharged home on home health. Home health set up per care coordination. Patient had no complaints at time of discharge denying chest pain, shortness of breath, palpitations, nausea/vomiting, abdominal pain, dizziness/lightheadedness. At time of discharge had a lengthy conversation with patient and his about the discharge instructions including necessary follow up, new medications being started and side effects of those medications. They stated understanding. Patient discharged home with home health in a stable condition. He is to follow up with PCP in 1 week and general surgery and vascular surgery as scheduled. Status at Discharge Functional status at discharge: uses cane/walker Time Spent with Patient Time attestation: Total time spent providing and/or coordinating discharge services: Time spent: Greater than 30 minutes Exam Narrative: AF HR 89 RR 18 SPo2 90 BP 123/64 General: male in no acute respiratory distress who is nontoxic appearing, sitting up in chair HEENT: Normocephalic. Atraumatic. Extraocular movement intact. Sclera clear and anicteric. No facial asymmetry. Chest: Lungs are clear to auscultation bilaterally. No wheezes or crackles. CV: Heart was regular rate and rhythm. Abd: Abdomen was soft. Nontender. Nondistended. Positive bowel sounds. Ext: No clubbing, cyanosis, or edema. Dressings clean/dry/intact to BLE. Radial pulses intact. Neuro: Patient is alert. Speech is clear. DS: Data Data Completed and Pending Completed studies during hospitalization: carotid doppler claus foot xr foot xr head ct Labs on day of discharge: Labs from last 24 hours 05/20/25 05:42 WBC 4.8 RBC 2.97 L Hgb 9.9 L Hct 30.7 L MCV 103.4 H MCH 33.3 MCHC 32.2 RDW 16.0 H Plt Count 164 MPV 10.1 Sodium 133 L Potassium 4.3 Chloride 98 Carbon Dioxide 31 H Anion Gap 4 BUN 12 Creatinine 0.73 Estim Creat Clear Calc 88 Estimated GFR > 60 Glucose 108 Calcium 9.6 Total Bilirubin 0.8 AST 89 H ALT 40 Alkaline Phosphatase 169 H Total Protein 6.5 Albumin 3.1 L Discharge Plan Discharge Attending physician on discharge: Siobhan Mendiola Consulting providers: Paula Kaiser; Sebastian Hernandez; José Miguel Morgan; Eliza Sandoval Discharging Clinician: Eliza Sandoval Anticipated Discharge Date/Time: 05/16/25 14:24 Patient Disposition: Home with Home Health Service Activity: as tolerated and other - see discharge instructions Diet: as tolerated and heart healthy Discharge Instructions: Discharge disposition: Patient admitted to the hospital for ulceration to left great toe that showed osteomyelitis Evaluated by surgery Patient requires a vascular surgery follow up prior to surgical intervention Continue to wear walking shoe with ambulation Continue local wound care Evaluated by infectious disease. Take medications as prescribed. Doxycycline twice a day Augmentin twice a day Attached is information on these medications Follow up with infectious disease in the office in 2 weeks, call for appointment Patient should receive a phone call from vascular surgery or general surgery this week, if a phone call is not received call the surgery office. Attached is the office information. Referral for vascular surgery was sent to [facility]. Follow up with surgery, call for appointment During admission patient noted to have a difference between bilateral blood pressures Doppler showed concern for subclavian steal syndrome Remains on aspirin 81 mg daily Blood pressure remains controlled on lasix 20 mg daily and metoprolol 12.5 mg BID Increased atorvastatin 10 mg to 40 mg daily Encouraged smoking cessation Patient to follow up with vascular surgery if symptoms worsen Monitor blood pressures Take caution while standing, rising, or moving Change positions slowly taking a break between each position change If you standing feel dizzy sit back down and take a break Encouraged to continue with yearly vaccinations Return to the emergency department if he developed sudden shortness of breath, chest pain, nausea, vomiting, upset stomach or intractable diarrhea Return to the emergency department if you develop fever greater than 100.5 Follow-up with the primary care physician within 1-2 weeks Per Care Coordination, patient to discharge with [facility]( [phone]) for PT/ OT and jail . Agency will call to arrange the initial visit. Thank you for choosing [facility] for your healthcare needs Patient Instructions: Antibiotic Form, Doxycycline (By mouth), Aspirin (By mouth), Amoxicillin/Clavulanate Potassium (By mouth), Osteomyelitis (DC), Steal Syndrome (DC) Patient Language: Ukrainian Stand Alone Forms: General Discharge Information Follow-up/Referrals: Paula Kaiser MD [Physician, General Surgery] - Call for Appointment Abdirahman Abernathy MD [Primary Care Provider, Internal Medicine] - 1 Week José Miguel Morgan MD [Physician, Infectious Disease] Discharge Medications: New doxycycline hyclate 100 mg Tablet 100 mg PO Q12HR 14 Days Qty: 28 0RF amoxicillin-pot clavulanate 875-125 mg tablet 1 tablet PO Q12H 14 Days Qty: 28 0RF Continued gabapentin 600 mg tablet 600 mg PO TID Qty: 270 2RF levetiracetam [Keppra] 500 mg tablet 500 mg PO Q12HR Qty: 180 2RF duloxetine 60 mg capsule,delayed release(DR/EC) 60 mg PO DAILY mecobalamin (vitamin B12) 2,500 mcg tablet,chewable 2,500 mcg PO DAILY calcium carbonate 600 mg calcium (1,500 mg) tablet 600 mg PO DAILY cholecalciferol (vitamin D3) 125 mcg (5,000 unit) capsule 125 mcg PO DAILY mecobalamin (vitamin B12) 1,000 mcg tablet,chewable 2,000 mcg PO .HS albuterol sulfate [Ventolin HFA] 90 mcg/actuation HFA aerosol inhaler 1 puff inhalation Q4H PRN (Reason: shortness of breath or wheezing) umeclidinium-vilanterol [Anoro Ellipta] 62.5-25 mcg/actuation blister with device 1 inh inhalation DAILY multivitamin Tablet 1 tablet PO DAILY buspirone 10 mg tablet 10 mg PO Q12HR Qty: 180 1RF furosemide 20 mg tablet 20 mg PO DAILY Qty: 90 2RF sodium chloride 1,000 mg tablet,soluble 1,000 mg PO DAILY Qty: 90 2RF metoprolol tartrate 25 mg tablet 12.5 mg PO BID Qty: 45 2RF allopurinol 300 mg tablet 300 mg PO DAILY Qty: 90 1RF aspirin [Children's Aspirin] 81 mg Tablet,Chewable 81 mg PO DAILY@0800 Qty: 30 0RF folic acid 1 mg Tablet 1 mg PO DAILY Qty: 30 0RF Changed atorvastatin 10 mg tablet 40 mg PO DAILY Qty: 90 1RF Date of admission: 05/13/25 08:59 Primary Care Provider: Abdirahman Aberanthy Admitting Provider: Mini Bender Attending physician on admission: Mini Bender Condition: Stable Hospitalist MIPS Heart Failure (Exclusion) Patient has history of Heart Transplant or Left Ventricular Assistive Device?: No IF YES, STOP HERE Heart Failure (Qualifier) Patient has current or prior documentation of LVEF less than or equal to 40%, or mod/servere depressed LVSF?: No IF NO, STOP HERE
--- NOTE | 2025-05-20 19:18 | WPDINFPN2 ---
Progress Note: A&P Assessment and Plan (1) Ulcer of toe of left foot: Qualifiers: Non-pressure ulcer stage: with necrosis of bone Qualified Code(s): L97.524 - Non-pressure chronic ulcer of other part of left foot with necrosis of bone Code(s): L97.529 - Non-pressure chronic ulcer of other part of left foot with unspecified severity Status: Acute (2) Ulcer of great toe: Code(s): L97.509 - Non-pressure chronic ulcer of other part of unspecified foot with unspecified severity Status: Acute (3) Acute osteomyelitis of toe of left foot: Code(s): M86.172 - Other acute osteomyelitis, left ankle and foot Status: Acute (4) Ulcer of toe of right foot: Qualifiers: Non-pressure ulcer stage: unspecified non-pressure ulcer stage Qualified Code(s): L97.519 - Non-pressure chronic ulcer of other part of right foot with unspecified severity Code(s): L97.519 - Non-pressure chronic ulcer of other part of right foot with unspecified severity Status: Acute Plan # Left 1st toe plantar infected ulcer with x-ray evidence osteomyelitis. # Right foot with distal 2nd and 3rd toe dry eschar wounds but minimal surrounding inflammation. # Peripheral vascular disease including peripheral arterial disease suggested by arterial Doppler study. # Reported diagnosis of diabetes in the past. # Recent left hip fracture, status post repair. Plan: --Discharge on oral augmentin and doxy -planf PVD w/u outpt See me in 2 weeks. -- surgery following. Patient originally opted for medical management; however, now reconsidering surgical amputation of left 1st toe. Per surgical service, proceeding with surgery will 1st require outpatient vascular surgery evaluation. For this reason, would not place PICC and would consider discharge on oral antibiotics as bridge treatment until vascular workup and amputation of left 1st toe could be performed. -- after amputation, and if bone margins negative for residual osteomyelitis, and surgical site without active infection, should be able to discontinue all antibiotics. -- possible transfer to SNF for rehab purposes. d/w Hospitalist anjana. Patient was seen via video telehealth consultation with the assistance of staff. Chart, data, and patient independently reviewed. Patient was located at [facility] while I was located in my [place] office. Received verbal consent from patient. Subjective Date/time seen: 05/20/25 19:18 Interval history: no fever. no toe pain. no issues with oral abx. Exam Narrative: He is awake and alert and nontoxic in appearance. Mental status is baseline. Sitting up in a chair. Directed exam significant for bilateral lower extremity stasis dermatitis skin changes. Left 1st toe ulceration is relatively dry at this time. Left 1st toe erythema and overall inflammation/ edema has decreased. Left heel with stage I ulceration but no significant purulence or surrounding inflammation. Right tips of 2nd and 3rd and toe with dry tip wounds/eschars. Objective Data Vital Signs Vital Signs: Vital Signs - 24 hr 05/19/25 20:00 05/19/25 20:57 05/19/25 20:59 Temperature 37.0 C Pulse Rate 85 98 96 Respiratory Rate 18 Blood Pressure 116/54 L Pulse Oximetry 92 Oxygen Delivery 05/19/25 21:03 05/19/25 21:18 05/20/25 00:00 Temperature 36.8 C Pulse Rate 89 96 85 Respiratory Rate 18 Blood Pressure 113/51 L Pulse Oximetry 92 Oxygen Delivery 05/20/25 04:00 05/20/25 04:37 05/20/25 07:57 Temperature 36.4 C Pulse Rate 76 89 92 Respiratory Rate 18 14 Blood Pressure 123/64 Pulse Oximetry 90 Oxygen Delivery 05/20/25 08:00 05/20/25 10:15 05/20/25 10:16 Temperature Pulse Rate 92 92 Respiratory Rate Blood Pressure Pulse Oximetry Oxygen Delivery Room Air 05/20/25 12:00 05/20/25 14:00 Temperature 36.2 C L Pulse Rate 107 H 101 H Respiratory Rate 16 Blood Pressure 118/56 L Pulse Oximetry 99 Oxygen Delivery Intake/Output Intake/Output: Intake & Output 05/17/25 05/18/25 05/19/25 05/20/25 23:59 23:59 23:59 23:59 Intake Total 1480 2516 670 480 Output Total 200 900 300 Balance 1280 1616 670 180 Meds/Results Radiology Results: ITS Impressions Head CT 05/11/25 15:34 Impression: 1.No acute intracranial abnormality. Foot X-Ray 05/11/25 15:58 Impression: Osteomyelitis detailed above Ankle Brachial Index 05/13/25 17:09 IMPRESSION: 1. Arterial occlusive disease to the bilateral lower limbs interval worsening, now with moderately decreased bilateral ABIs and moderately decreased right TBI and severely decreased left TBI. Carotid Doppler Study 05/19/25 09:57 IMPRESSION: 1. <50% stenosis in the right internal carotid artery. 2. <50% stenosis in the left internal carotid artery. 3. Retrograde flow in left vertebral artery, consistent with subclavian steal. Labs Labs: Laboratory Results - last 24 hr 05/20/25 05:42 WBC 4.8 RBC 2.97 L Hgb 9.9 L Hct 30.7 L MCV 103.4 H MCH 33.3 MCHC 32.2 RDW 16.0 H Plt Count 164 MPV 10.1 Sodium 133 L Potassium 4.3 Chloride 98 Carbon Dioxide 31 H Anion Gap 4 BUN 12 Creatinine 0.73 Estim Creat Clear Calc 88 Estimated GFR > 60 Glucose 108 Calcium 9.6 Total Bilirubin 0.8 AST 89 H ALT 40 Alkaline Phosphatase 169 H Total Protein 6.5 Albumin 3.1 L
== END 2025-05-20 14:49 | disposition home health service (06) | DRG 593 ==
LOC: ANHED 18:11 → ANH3MEDSUR 18:13
PROVIDERS: Student in an Organized Health Care Education/Training Program; Admitting Provider Family Medicine; Emergency Provider Physician Assistant; PCP Emergency Medicine; Visit Provider Student in an Organized Health Care Education/Training Program
DX: L97.524 Non-pressure chronic ulcer of other part of left foot with necrosis of bone (principal); F10.29 Alcohol dependence with unspecified alcohol-induced disorder; J96.11 Chronic respiratory failure with hypoxia; M86.172 Other acute osteomyelitis, left ankle and foot; G45.8 Other transient cerebral ischemic attacks and related syndromes; L97.519 Non-pressure chronic ulcer of other part of right foot with unspecified severity; B95.2 Enterococcus as the cause of diseases classified elsewhere; D69.6 Thrombocytopenia, unspecified; D64.9 Anemia, unspecified; E78.00 Pure hypercholesterolemia, unspecified; E11.42 Type 2 diabetes mellitus with diabetic polyneuropathy; E11.51 Type 2 diabetes mellitus with diabetic peripheral angiopathy without gangrene; F17.210 Nicotine dependence, cigarettes, uncomplicated; F41.8 Other specified anxiety disorders; F10.20 Alcohol dependence, uncomplicated; I10 Essential (primary) hypertension; I48.0 Paroxysmal atrial fibrillation; J44.9 Chronic obstructive pulmonary disease, unspecified; K70.30 Alcoholic cirrhosis of liver without ascites; R25.1 Tremor, unspecified; S72.002D Fracture of unspecified part of neck of left femur, subsequent encounter for closed fracture with routine healing; Z79.82 Long term (current) use of aspirin; Z99.81 Dependence on supplemental oxygen
CPT/HCPCS: 36415; 36600; 70450; 73630; 80053; 80202; 80307; 81001; 82077; 82375; 82565; 82607; 82728; 82746; 82805; 83036; 83050; 83540; 83550; 83605; 83880; 85018; 85025; 85027; 85049; 85610; 85730; 86140; 87040; 87070; 87086; 87186; 87205; 93880; 93922; 94640; 96365; 96366; 96367; 96375; 97110; 97116; 97162; 97166; 97530; 97535; 99285; A9270; G0378; J0692; J1650; J1836; J3373; J7030; J7050